=== PATIENT | female | born 1940 | race Caucasian/White ===

== ENCOUNTER → 2018-03-14 09:04 | Outpatient (CLI) | payer MEDICARE, OTHER, SELFPAY ==
[2018-03-14 09:39] LABS: Add Manual Diff / Slide Review NO; Basophils Percent Auto 1.5 % (0-2); Eosinophils Percent Auto 11.7 % (2-4); Hematocrit 37.8 % (36-46); Hemoglobin 12.4 g/dL (12.0-16.0); Lymphocytes Percent Auto 11.3 % (25-40); Mean Corpuscular HGB Conc 32.7 % (30-36); Mean Corpuscular Volume 85.7 fL (80-100); Monocytes Percent Auto 6.4 % (3-14); Neutrophils Absolute Auto 4600 /uL (3000-5900); Neutrophils Percent Auto 69.1 % (50-75); Platelet Count 263 X10^3/uL (150-400); Red Blood Cell Count 4.41 X10^6/uL (4.0-5.2); Red Cell Distribution Width 17.2 % (11.6-14.8); White Blood Cell Count 6.6 X10^3/uL (4.5-11.0)
[2018-03-14 10:00] LABS: Alanine Aminotransferase 18 IU/L (9-52); Albumin 4.4 g/dL (3.5-5.0); Albumin Globulin Ratio 1.5 (1.0-2.8); Alkaline Phosphatase 75 U/L (38-126); Aspartate Aminotransferase 22 IU/L (14-36); Bilirubin Total 0.3 mg/dL (0.2-1.3); Blood Urea Nitrogen 28 mg/dL (7-17); Carbon Dioxide 19 mmol/L (22-32); Chloride 111 mmol/L (98-107); Cholesterol 175 mg/dL (140-199); Estimated Glomerular Filt Rate 54.1 mL/min (>60); Glucose 102 mg/dL (80-110); HDL Cholesterol 43 mg/dL (40-60); HEMOLYSIS < 15 (0-50); LDL Cholesterol Calculated 102 mg/dL (<100); Potassium 5.1 mmol/L (3.4-5.1); Sodium 144 mmol/L (137-145); Total Protein 7.4 g/dL (6.3-8.2); Triglycerides 150 mg/dL (35-150)
[2018-03-14 10:39] LABS: Thyroid Stimulating Hormone 5.62 uIU/mL (0.47-4.68)
[2018-03-14 11:44] LABS: Appearance Urine UA CLEAR; Bilirubin Urine UA NEGATIVE (NEGATIVE); Color Urine UA YELLOW; Glucose Urine UA NEGATIVE (Normal); Ketones Urine UA NEGATIVE (NEGATIVE); Leukocyte Esterase Urine UA TRACE (NEGATIVE); Nitrite Urine UA POSITIVE (Negative); Occult Blood Urine UA 1+ (Negative); Protein Urine UA 2+ (Negative); Urobilinogen Urine UA 0.2 E.U./dL (0.2)
[2018-03-14 11:50] LABS: Bacteria Urine Many (>30); Culture Indicated Urine Specimen Cultured; RBC Urine 0-1/HPF (0-5/HPF); Squamous Epithelial Cell Urine 0-1 /HPF; WBC Urine 10-30/HPF (0-5/HPF)
== END ==
PROVIDERS: PCP Family Medicine; Visit Provider Family Medicine
DX: E78.5 Hyperlipidemia, unspecified (principal); N18.9 Chronic kidney disease, unspecified; I10 Essential (primary) hypertension; Z51.81 Encounter for therapeutic drug level monitoring
CPT/HCPCS: 36415; 80053; 80061; 81003; 81015; 84443; 85025; 85610; 87077; 87086; 87186

== ENCOUNTER → 2018-05-10 15:57 | Outpatient (CLI) | payer MEDICARE, OTHER, SELFPAY ==
[2018-05-10 17:23] LABS: Vitamin D 25 Hydroxy (D3) 55.9 ng/mL (30.0-100.0)
== END ==
PROVIDERS: PCP Family Medicine; Visit Provider Internal Medicine Rheumatology
DX: M81.0 Age-related osteoporosis without current pathological fracture (principal)
CPT/HCPCS: 36415; 82306

== ENCOUNTER 2018-07-04 16:00 | Outpatient (RCR) | payer MEDICARE, OTHER, SELFPAY ==
--- NOTE | 2018-04-10 12:00 | PT.OIE ---
Current Diagnoses Unspecified urinary incontinence (04/09/18) Past Medical History (Last Reviewed 04/01/18 @ 10:09 by Carola Devine DO) CKD (chronic kidney disease) (Chronic Unknown) CREST syndrome (Chronic Unknown) GERD (gastroesophageal reflux disease) (Chronic Unknown) Hyperlipemia (Chronic Unknown) Hypertension (Chronic Unknown) Osteopenia (Chronic ~04/2016) Osteoporosis (Chronic ~04/2016) Raynaud's disease (Chronic Unknown) Past Surgical History (Last Reviewed 04/01/18 @ 10:10 by Carola Devine DO) History of cataract removal with insertion of prosthetic lens Status post breast biopsy Status post hysterectomy Status post tonsillectomy and adenoidectomy Provider Visit Care Team Role Provider Type Carola Devine DO Attending Provider Physician Primary Care Provider Specialty: Family Practice Address: [address] [place] [address] Email: [email or web address] Physical Therapy Initial Evaluation PT-OP-A Visit Information Start: 04/10/18 11:21 Freq: Status: Active Protocol: Document 04/09/18 13:00 [facility] (Rec: 04/10/18 11:29 [facility] [email or web address]) Out-Patient Physical Therapy Visit Information Visit Information Visit Type Initial Evaluation Visit Start Time 13:00 Visit Stop Time 13:45 Total Visit Minutes 45 Visit Number 1 Evaluation Information Evaluation Date 04/09/18 PT-OP-B Current Condition Start: 04/10/18 11:21 Freq: Status: Active Protocol: Document 04/09/18 13:00 [facility] (Rec: 04/10/18 11:29 [facility] [id number]) Current Condition History of Current Condition Onset Date over 5 years ago Current Complaints fecal incontinence and pelvic organ prolapse History of Current Condition Yanni was seen 5 years ago for pelvic floor therapy for rectal prolapse and fecal incontinence. She notes she did well after treatment for a few years but then in 2014 she traveled to [facility] and because sick with an intestinal bug. She has not been the same since and is back to fecal incontinence and mucus in her stool. She reports with the rectal prolapse she has days when she feels more pressure than others. PT-OP-I Pelvic Floor Start: 04/10/18 11:21 Freq: Status: Active Protocol: Document 04/09/18 13:00 [facility] (Rec: 04/10/18 11:59 [facility] [email or web address]) Pelvic Floor Assessment Urine Pelvic Floor Surgery Yes Bowel Bowel Surgery Yes Bowel Symptoms Fecal Leakage Other Bowel Symptoms Yanni had a rectocele repair in 1988 stool leakage 3-4 times per day Bowel Movement Frequency 4-5 times per day Hand Stool Chart Comments small round stool the size of a grape Pelvic Clock Pelvic Clock 12-3 Atrophy Pelvic Clock 3-6 Atrophy Pelvic Clock 6-9 Atrophy Pelvic Clock 9-12 Atrophy Pelvic Clock Other able to facilitate contraction of all portions of the levator ani but weak endurance guarded on the pelvic clock from 4-6 and from 6-8 Prolapse Rectocele Grade 2 Contraction Ability Voluntary Contraction Weak Voluntary Relaxation Weak Manual Muscle Testing Left 2 Manual Muscle Testing Right 2 Manual Muscle Testing Anterior 3 Manual Muscle Testing Posterior 3 Muscle Endurance (Seconds) 3 PT-OP-M Strength Start: 04/10/18 11:21 Freq: Status: Active Protocol: Document 04/09/18 13:00 [facility] (Rec: 04/10/18 11:59 [facility] [id number]) Hip Strength Hip Manual Muscle Testing Right Abduction 3 Fair External Rotation 3 Fair Left Abduction 3 Fair Adduction 3 Fair PT-OP-Q Treatments Start: 04/10/18 11:21 Freq: Status: Active Protocol: Document 04/09/18 13:00 [facility] (Rec: 04/10/18 11:59 [facility] [email or web address]) Therapeutic Exercises Supine Exercises 3 Supine Exercise Name pelvic floor isolations Side bilateral Reps/Minutes hold 10 seconds relax 10-20 seconds 2 Supine Exercise Name modified squat stretch Side bilateral Reps/Minutes hold 1-2 minutes 1 Supine Exercise Name roll outs Side bilateral Resistance level 2 theraband Reps/Minutes 3 sets of 10 reps Self-Care/Home Management Treatment Education Patient Education Home Exercise Program Other Education Education on use of a squaty potty to assist with bowel movements as well as splinting at the perineum for bowel movements PT-OP-T Assessment and Plan Start: 04/10/18 11:21 Freq: Status: Active Protocol: Document 04/09/18 13:00 [facility] (Rec: 04/10/18 11:59 [facility] [email or web address]) Physical Therapy Assessment Rehab Potential Rehabilitation Potential Good Evaluation Complexity Number of Personal Factors/Comorbidities 0 Number of Body Systems Impaired 1-2 Clinical Presentation at Evaluation Stable Impairments Impairments Activity Tolerance Functional Activities Soft Tissue Mobility Strength Tone Other Impairments fecal incontinence Goals Three Impairment pelvic floor weakness Retirement Goal (LTG) Improve recruitment of the lateral cabrales of the levator ani to improve support to the descending colon and reduce complaints of pelvic pressure and heaviness LTG Duration 8 weeks Two Impairment Yanni feels like she is not fully able to empty her bowels Churn Tender Goal (LTG) With pelvic floor strengthening and education on splinting the perineum as well as using a squatty potty Yanni has improved her ability to fully empty her bowels LTG Duration 8 weeks One Impairment fecal incontinence with loss of stool 3-4 times per day Retirement Goal (LTG) Yanni has a overall reduction in stool incontinence from 3-4 times per day to 0-1 time per day LTG Duration 8 weeks Assessment Summary Assessment Yanni presents to physical therapy today with symptoms of rectal prolapse and fecal incontinence. She reports stool that is the round the size of a grape and experiences stool leakage 3-4 times per day. She notes she is often not aware of when she is leaking. She has had surgery for rectal propase in 1988 but notes complaints of pelvic heavyness again and feels as if she cannot fully evacuate her stool. This keeps her at home a great deal especially in the AM. With pelvic floor examination Yanni is able to facilitate her pelvic floor but is weak especially in the lateral cabrales of the levator ani. She also presents with hip ER weakness. She is guarded in the posterior wall from 6-8 and to a lesser extent from 4- 6. Treatment will focus on endurance of the pelvic floor for improved shelf of support, education on toileting techniques and avoiding straining, hip strengthening and stretching for her guarded posterior pelvic floor. Physical Therapy Plan Frequency and Duration Frequency of Treatment 1x/Week Duration of Treatment 8 weeks Plan of Care Start Date 04/09/18 Plan of Care End Date 06/04/18 Therapeutic Interventions Therapeutic Interventions Home Exercise Program Manual Therapy Neuromuscular Re-education Patient/Caregiver Education Self-Care/Home Management Soft Tissue Mobilization Therapeutic Exercises Modalities Biofeedback Electric Stimulation
--- NOTE | 2018-04-10 12:01 | PT.OPPOC ---
Current Diagnoses Unspecified urinary incontinence (04/09/18) Provider Visit Care Team Role Provider Type Carola Devine DO Attending Provider Physician Primary Care Provider Specialty: Family Practice Address: [address] [place] [address], [id number] Email: [email or web address] Plan Of Care PT-OP-T Assessment and Plan Start: 04/10/18 11:21 Freq: Status: Active Protocol: Document 04/09/18 13:00 [facility] (Rec: 04/10/18 11:59 [facility] [email or web address]) Physical Therapy Assessment Rehab Potential Rehabilitation Potential Good Evaluation Complexity Number of Personal Factors/Comorbidities 0 Number of Body Systems Impaired 1-2 Clinical Presentation at Evaluation Stable Impairments Impairments Activity Tolerance Functional Activities Soft Tissue Mobility Strength Tone Other Impairments fecal incontinence Goals Three Impairment pelvic floor weakness Jail Goal (LTG) Improve recruitment of the lateral cabrales of the levator ani to improve support to the descending colon and reduce complaints of pelvic pressure and heavyness LTG Duration 8 weeks Two Impairment Yanni feels like she is not fully able to empty her bowels Jail Goal (LTG) With pelvic floor strengthening and education on splinting the perineum as well as using a squatty potty Yanni has improved her ability to fully empty her bowels LTG Duration 8 weeks One Impairment fecal incontinence with loss of stool 3-4 times per day Engineering Inspector Goal (LTG) Yanni has a overall reduction in stool incontinence from 3-4 times per day to 0-1 time per day LTG Duration 8 weeks Assessment Summary Assessment Yanni presents to physical therapy today with symptms of rectal prolapse and fecal incontinence. She reports arianne that is the round the size of a grape and experiences stool leakage 3-4 times per day. She notes she is often not aware of when she is leaking. She has had surgery for rectal propase in 1988 but notes complaints of pelvic heavyness again and feels as if she cannot fully evacuate her stool. This keeps her at home a great deal especially in the AM. With pelvic floor examination Yanni is able to facilitate her pelvic floor but is weak especially in the lateral cabrales of the levator ani. She also presents with hip ER weakness. She is guarded in the posterior wall from 6-8 and to a lesser extent from 4- 6. Treatment will focus on endurance of the pelvic floor for improved shelf of support, education on toileting techniques and avoiding straining, hip strengthening and stretching for her guarded posterior pelvic floor. Physical Therapy Plan Frequency and Duration Frequency of Treatment 1x/Week Duration of Treatment 8 weeks Plan of Care Start Date 04/09/18 Plan of Care End Date 06/04/18 Therapeutic Interventions Therapeutic Interventions Home Exercise Program Manual Therapy Neuromuscular Re-education Patient/Caregiver Education Self-Care/Home Management Soft Tissue Mobilization Therapeutic Exercises Modalities Biofeedback Electric Stimulation Plan of Care Dates Plan of Care Start Date 04/09/18 Plan of Care End Date 06/04/18 Please Sign and Return: I have reviewed this Plan of Care and certify that the skilled therapy services above are required to meet the patient?s needs. Physician Signature Date Printed Name and Credentials Clinical Instructor Signature Printed Name and Credentials
--- NOTE | 2018-04-23 16:42 | PT.OTN ---
Current Diagnoses Unspecified urinary incontinence (04/23/18) Physical Therapy Treatment Note PT-OP-A Visit Information Start: 04/10/18 11:21 Freq: Status: Active Protocol: Document 04/23/18 16:32 [facility] (Rec: 04/23/18 16:42 [facility] [email or web address]) Out-Patient Physical Therapy Visit Information Visit Information Visit Type Treatment Note Visit Start Time 13:00 Visit Stop Time 13:45 Total Visit Minutes 45 Visit Number 2 Number of WEATHER ANCHOR Visits 0 Evaluation Information Evaluation Date 04/09/18 PT-OP-B Current Condition Start: 04/10/18 11:21 Freq: Status: Active Protocol: Document 04/09/18 13:00 [facility] (Rec: 04/10/18 11:29 [facility] [email or web address]) Current Condition History of Current Condition Onset Date over 5 years ago Current Complaints fecal incontinence and pelvic organ prolpase History of Current Condition Yanni was seen 5 years ago for pelvic floor therapy for rectal prolapse and fecal incontinence. She notes she did well after treatment for a few years but then in 2014 she traveled to [facility] and because sick with an intestinal bug. She has not been the same since and is back to fecal incontinence and mucus in her stool. She reports with the rectal prolapse she has days when she feels more pressure than others. PT-OP-C Subjective Start: 04/10/18 11:21 Freq: Status: Active Protocol: Document 04/23/18 16:32 [facility] (Rec: 04/23/18 16:42 [facility] [email or web address]) OP-PT Subjective Patient Comments Patient Comments Yanni reports her stool has been soft this past few weeks PT-OP-I Pelvic Floor Start: 04/10/18 11:21 Freq: Status: Active Protocol: Document 04/09/18 13:00 [facility] (Rec: 04/10/18 11:59 [facility] [email or web address]) Pelvic Floor Assessment Urine Pelvic Floor Surgery Yes Bowel Bowel Surgery Yes Bowel Symptoms Fecal Leakage Other Bowel Symptoms Yanni had a rectocele repair in 1988 stool leakage 3-4 times per day Bowel Movement Frequency 4-5 times per day [place] Stool Chart Comments small round stool the size of a grape Pelvic Clock Pelvic Clock 12-3 Atrophy Pelvic Clock 3-6 Atrophy Pelvic Clock 6-9 Atrophy Pelvic Clock 9-12 Atrophy Pelvic Clock Other able to faciltate contaction of all portions of the levator ani but weak endurance guarded on the pelvic clock from 4-6 and from 6-8 Prolapse Rectocele Grade 2 Contraction Ability Voluntary Contraction Weak Voluntary Relaxation Weak Manual Muscle Testing Left 2 Manual Muscle Testing Right 2 Manual Muscle Testing Anterior 3 Manual Muscle Testing Posterior 3 Muscle Endurance (Seconds) 3 PT-OP-M Strength Start: 04/10/18 11:21 Freq: Status: Active Protocol: Document 04/09/18 13:00 [facility] (Rec: 04/10/18 11:59 [facility] [email or web address]) Hip Strength Hip Manual Muscle Testing Right Abduction 3 Fair External Rotation 3 Fair Left Abduction 3 Fair Adduction 3 Fair PT-OP-Q Treatments Start: 04/10/18 11:21 Freq: Status: Active Protocol: Document 04/23/18 16:32 [facility] (Rec: 04/23/18 16:42 [facility] [email or web address]) Therapeutic Exercises Supine Exercises 4 Supine Exercise Name ball squeeze 3 Supine Exercise Name pelvic floor isolations Side bilateral Reps/Minutes hold 10 seconds relax 10-20 seconds 2 Supine Exercise Name modified squat stretch Side bilateral Reps/Minutes hold 1-2 minutes 1 Supine Exercise Name roll outs Side bilateral Resistance level 2 theraband Reps/Minutes 3 sets of 10 reps Other Exercises 3 Other Exercise Name templates for eccentric control and coordination 2 Other Exercise Name rock backs Reps/Minutes 10 reps 1 Other Exercise Name quadraped pelvic tilts Reps/Minutes 10 PT-OP-T Assessment and Plan Start: 04/10/18 11:21 Freq: Status: Active Protocol: Document 04/23/18 16:32 [facility] (Rec: 04/23/18 16:42 [facility] [email or web address]) Physical Therapy Assessment Assessment Summary Assessment working on releasing the posterior pelvic floor, Yanni tends to hold her pelvis in a posteriorly rotated position. We worked on breathing and opening up at the sitting bones and isolating the pelvic floor without substitution. EMG biofeedback was done today and average was 6.6 uv with max of 10.9 uv Physical Therapy Plan Frequency and Duration Frequency of Treatment 1x/Week Duration of Treatment 8 weeks Plan of Care Start Date 04/09/18 Plan of Care End Date 06/04/18 Therapeutic Interventions Therapeutic Interventions Home Exercise Program Manual Therapy Neuromuscular Re-education Patient/Caregiver Education Self-Care/Home Management Soft Tissue Mobilization Therapeutic Exercises Modalities Biofeedback Electric Stimulation Next Visit Focus/Plan Next Note Type Treatment Note Next Visit Plan work on isolation of the pelvic floor without gluteal substitution, begin TA stabilization next visit
--- NOTE | 2018-05-02 17:30 | PT.OTN ---
Current Diagnoses Unspecified urinary incontinence (05/02/18) Physical Therapy Treatment Note PT-OP-A Visit Information Start: 04/10/18 11:21 Freq: Status: Active Protocol: Document 05/02/18 17:27 [facility] (Rec: 05/02/18 17:30 [facility] [email or web address]) Out-Patient Physical Therapy Visit Information Visit Information Visit Type Treatment Note Visit Start Time 14:30 Visit Stop Time 15:15 Total Visit Minutes 45 Visit Number 3 Number of HOSPITAL EDUCATION COORDINATOR Visits 0 PT-OP-B Current Condition Start: 04/10/18 11:21 Freq: Status: Active Protocol: Document 04/09/18 13:00 [facility] (Rec: 04/10/18 11:29 [facility] [email or web address]) Current Condition History of Current Condition Onset Date over 5 years ago Current Complaints fecal incontinence and pelvic organ prolpase History of Current Condition Yanni was seen 5 years ago for pelvic floor therapy for rectal prolapse and fecal incontinence. She notes she did well after treatment for a few years but then in 2014 she traveled to [facility] and because sick with an intestinal bug. She has not been the same since and is back to fecal incontinence and mucus in her stool. She reports with the rectal prolapse she has days when she feels more pressure than others. PT-OP-C Subjective Start: 04/10/18 11:21 Freq: Status: Active Protocol: Document 05/02/18 17:27 [facility] (Rec: 05/02/18 17:30 [facility] [email or web address]) OP-PT Subjective Patient Comments Patient Comments Yanni reports she is able to tell a difference now with her pelvic floor. She is experiencing decreased heavyness and decreased fecal smearing PT-OP-I Pelvic Floor Start: 04/10/18 11:21 Freq: Status: Active Protocol: Document 04/09/18 13:00 [facility] (Rec: 04/10/18 11:59 [facility] [email or web address]) Pelvic Floor Assessment Urine Pelvic Floor Surgery Yes Bowel Bowel Surgery Yes Bowel Symptoms Fecal Leakage Other Bowel Symptoms Yanni had a rectocele repair in 1988 stool leakage 3-4 times per day Bowel Movement Frequency 4-5 times per day [place] Stool Chart Comments small round stool the size of a grape Pelvic Clock Pelvic Clock 12-3 Atrophy Pelvic Clock 3-6 Atrophy Pelvic Clock 6-9 Atrophy Pelvic Clock 9-12 Atrophy Pelvic Clock Other able to faciltate contaction of all portions of the levator ani but weak endurance guarded on the pelvic clock from 4-6 and from 6-8 Prolapse Rectocele Grade 2 Contraction Ability Voluntary Contraction Weak Voluntary Relaxation Weak Manual Muscle Testing Left 2 Manual Muscle Testing Right 2 Manual Muscle Testing Anterior 3 Manual Muscle Testing Posterior 3 Muscle Endurance (Seconds) 3 PT-OP-M Strength Start: 04/10/18 11:21 Freq: Status: Active Protocol: Document 04/09/18 13:00 [facility] (Rec: 04/10/18 11:59 [facility] [email or web address]) Hip Strength Hip Manual Muscle Testing Right Abduction 3 Fair External Rotation 3 Fair Left Abduction 3 Fair Adduction 3 Fair PT-OP-Q Treatments Start: 04/10/18 11:21 Freq: Status: Active Protocol: Document 05/02/18 17:27 [facility] (Rec: 05/02/18 17:30 [facility] [email or web address]) Therapeutic Exercises Supine Exercises 4 Supine Exercise Name ball squeeze 3 Supine Exercise Name pelvic floor isolations Side bilateral Reps/Minutes hold 10 seconds relax 10-20 seconds 2 Supine Exercise Name modified squat stretch Side bilateral Reps/Minutes hold 1-2 minutes 1 Supine Exercise Name roll outs Side bilateral Resistance level 2 theraband Reps/Minutes 3 sets of 10 reps Other Exercises 3 Other Exercise Name templates for eccentric control and coordination 2 Other Exercise Name rock backs Reps/Minutes 10 reps 1 Other Exercise Name quadraped pelvic tilts Reps/Minutes 10 PT-OP-T Assessment and Plan Start: 04/10/18 11:21 Freq: Status: Active Protocol: Document 05/02/18 17:27 [facility] (Rec: 05/02/18 17:30 [facility] [email or web address]) Physical Therapy Assessment Assessment Summary Assessment improved strength of EMG biofeedback today from 11.6 uv to 15.9 uv. Good improvement ! Yanni needed review of rock backs verses cat cow but is showing good awareness with all other exercises Physical Therapy Plan Frequency and Duration Frequency of Treatment 1x/Week Duration of Treatment 8 weeks Plan of Care Start Date 04/09/18 Plan of Care End Date 06/04/18 Therapeutic Interventions Therapeutic Interventions Home Exercise Program Manual Therapy Neuromuscular Re-education Patient/Caregiver Education Self-Care/Home Management Soft Tissue Mobilization Therapeutic Exercises Modalities Biofeedback Electric Stimulation Next Visit Focus/Plan Next Note Type Treatment Note Next Visit Plan work on isolation of the pelvic floor without gluteal substitution, begin TA stabilization next visit
--- NOTE | 2018-05-08 14:12 | PT.OTN ---
Current Diagnoses Unspecified urinary incontinence (05/08/18) Physical Therapy Treatment Note PT-OP-A Visit Information Start: 04/10/18 11:21 Freq: Status: Active Protocol: Document 05/08/18 14:07 [facility] (Rec: 05/08/18 14:11 [facility] [email or web address]) Out-Patient Physical Therapy Visit Information Visit Information Visit Type Treatment Note Visit Start Time 11:30 Visit Stop Time 12:15 Total Visit Minutes 45 Visit Number 4 Number of OUTSIDE MAINTENANCE WORKER Visits 0 Evaluation Information Evaluation Date 04/09/18 PT-OP-B Current Condition Start: 04/10/18 11:21 Freq: Status: Active Protocol: Document 04/09/18 13:00 [facility] (Rec: 04/10/18 11:29 [facility] [email or web address]) Current Condition History of Current Condition Onset Date over 5 years ago Current Complaints fecal incontinence and pelvic organ prolpase History of Current Condition Yanni was seen 5 years ago for pelvic floor therapy for rectal prolapse and fecal incontinence. She notes she did well after treatment for a few years but then in 2014 she traveled to [facility] and because sick with an intestinal bug. She has not been the same since and is back to fecal incontinence and mucus in her stool. She reports with the rectal prolapse she has days when she feels more pressure than others. PT-OP-C Subjective Start: 04/10/18 11:21 Freq: Status: Active Protocol: Document 05/08/18 14:07 [facility] (Rec: 05/08/18 14:11 [facility] [email or web address]) OP-PT Subjective Patient Comments Patient Comments Yanni notes this has been a hard week, she has gone back on esther seeds but it has made her stool softer and harder to control PT-OP-I Pelvic Floor Start: 04/10/18 11:21 Freq: Status: Active Protocol: Document 04/09/18 13:00 [facility] (Rec: 04/10/18 11:59 [facility] [email or web address]) Pelvic Floor Assessment Urine Pelvic Floor Surgery Yes Bowel Bowel Surgery Yes Bowel Symptoms Fecal Leakage Other Bowel Symptoms Yanni had a rectocele repair in 1988 stool leakage 3-4 times per day Bowel Movement Frequency 4-5 times per day [place] Stool Chart Comments small round stool the size of a grape Pelvic Clock Pelvic Clock 12-3 Atrophy Pelvic Clock 3-6 Atrophy Pelvic Clock 6-9 Atrophy Pelvic Clock 9-12 Atrophy Pelvic Clock Other able to faciltate contaction of all portions of the levator ani but weak endurance guarded on the pelvic clock from 4-6 and from 6-8 Prolapse Rectocele Grade 2 Contraction Ability Voluntary Contraction Weak Voluntary Relaxation Weak Manual Muscle Testing Left 2 Manual Muscle Testing Right 2 Manual Muscle Testing Anterior 3 Manual Muscle Testing Posterior 3 Muscle Endurance (Seconds) 3 PT-OP-M Strength Start: 04/10/18 11:21 Freq: Status: Active Protocol: Document 04/09/18 13:00 [facility] (Rec: 04/10/18 11:59 [facility] [email or web address]) Hip Strength Hip Manual Muscle Testing Right Abduction 3 Fair External Rotation 3 Fair Left Abduction 3 Fair Adduction 3 Fair PT-OP-Q Treatments Start: 04/10/18 11:21 Freq: Status: Active Protocol: Document 05/08/18 14:07 [facility] (Rec: 05/08/18 14:11 [facility] [email or web address]) Therapeutic Exercises Supine Exercises 6 Supine Exercise Name TA facilitation in supine with marches and heel slides 5 Supine Exercise Name quick contractions Reps/Minutes 2 seconds on 2 seconds off 4 Supine Exercise Name ball squeeze 3 Supine Exercise Name pelvic floor isolations Side bilateral Reps/Minutes hold 10 seconds relax 10-20 seconds 2 Supine Exercise Name modified squat stretch Side bilateral Reps/Minutes hold 1-2 minutes 1 Supine Exercise Name roll outs Side bilateral Resistance level 2 theraband Reps/Minutes 3 sets of 10 reps Other Exercises 3 Other Exercise Name templates for eccentric control and coordination 2 Other Exercise Name rock backs and miguel pose Reps/Minutes 10 reps 1 Other Exercise Name quadraped pelvic tilts Reps/Minutes 10 PT-OP-T Assessment and Plan Start: 04/10/18 11:21 Freq: Status: Active Protocol: Document 05/08/18 14:07 [facility] (Rec: 05/08/18 14:11 [facility] [email or web address]) Physical Therapy Assessment Assessment Summary Assessment worked on TA facilitation today with marches and heel slides. Needed verbac cuels to keep TA engaged. Will continue to work on TA facilitation Physical Therapy Plan Frequency and Duration Frequency of Treatment 1x/Week Duration of Treatment 8 weeks Plan of Care Start Date 04/09/18 Plan of Care End Date 06/04/18 Therapeutic Interventions Therapeutic Interventions Home Exercise Program Manual Therapy Neuromuscular Re-education Patient/Caregiver Education Self-Care/Home Management Soft Tissue Mobilization Therapeutic Exercises Modalities Biofeedback Electric Stimulation Next Visit Focus/Plan Next Note Type Treatment Note Next Visit Plan work on isolation of the pelvic floor without gluteal substitution, begin TA stabilization next visit
--- NOTE | 2018-05-16 11:45 | PT.OTN ---
Current Diagnoses Unspecified urinary incontinence (05/16/18) Physical Therapy Treatment Note PT-OP-A Visit Information Start: 04/10/18 11:21 Freq: Status: Active Protocol: Document 05/16/18 11:38 [facility] (Rec: 05/16/18 11:45 [facility] [email or web address]) Out-Patient Physical Therapy Visit Information Visit Information Visit Type Treatment Note Visit Start Time 10:30 Visit Stop Time 11:15 Total Visit Minutes 45 Visit Number 5 Number of GROCERY ASSOCIATE Visits 0 Evaluation Information Evaluation Date 04/09/18 PT-OP-B Current Condition Start: 04/10/18 11:21 Freq: Status: Active Protocol: Document 04/09/18 13:00 [facility] (Rec: 04/10/18 11:29 [facility] [email or web address]) Current Condition History of Current Condition Onset Date over 5 years ago Current Complaints fecal incontinence and pelvic organ prolpase History of Current Condition Yanni was seen 5 years ago for pelvic floor therapy for rectal prolapse and fecal incontinence. She notes she did well after treatment for a few years but then in 2014 she traveled to [facility] and because sick with an intestinal bug. She has not been the same since and is back to fecal incontinence and mucus in her stool. She reports with the rectal prolapse she has days when she feels more pressure than others. PT-OP-C Subjective Start: 04/10/18 11:21 Freq: Status: Active Protocol: Document 05/16/18 11:38 [facility] (Rec: 05/16/18 11:45 [facility] [email or web address]) OP-PT Subjective Patient Comments Patient Comments Still experiencing some leakage. PT-OP-I Pelvic Floor Start: 04/10/18 11:21 Freq: Status: Active Protocol: Document 04/09/18 13:00 [facility] (Rec: 04/10/18 11:59 [facility] [email or web address]) Pelvic Floor Assessment Urine Pelvic Floor Surgery Yes Bowel Bowel Surgery Yes Bowel Symptoms Fecal Leakage Other Bowel Symptoms Yanni had a rectocele repair in 1988 stool leakage 3-4 times per day Bowel Movement Frequency 4-5 times per day [place] Stool Chart Comments small round stool the size of a grape Pelvic Clock Pelvic Clock 12-3 Atrophy Pelvic Clock 3-6 Atrophy Pelvic Clock 6-9 Atrophy Pelvic Clock 9-12 Atrophy Pelvic Clock Other able to faciltate contaction of all portions of the levator ani but weak endurance guarded on the pelvic clock from 4-6 and from 6-8 Prolapse Rectocele Grade 2 Contraction Ability Voluntary Contraction Weak Voluntary Relaxation Weak Manual Muscle Testing Left 2 Manual Muscle Testing Right 2 Manual Muscle Testing Anterior 3 Manual Muscle Testing Posterior 3 Muscle Endurance (Seconds) 3 PT-OP-M Strength Start: 04/10/18 11:21 Freq: Status: Active Protocol: Document 04/09/18 13:00 [facility] (Rec: 04/10/18 11:59 [facility] [email or web address]) Hip Strength Hip Manual Muscle Testing Right Abduction 3 Fair External Rotation 3 Fair Left Abduction 3 Fair Adduction 3 Fair PT-OP-Q Treatments Start: 04/10/18 11:21 Freq: Status: Active Protocol: Document 05/16/18 11:38 [facility] (Rec: 05/16/18 11:45 [facility] [email or web address]) Therapeutic Exercises Supine Exercises 5 Supine Exercise Name quick contractions Reps/Minutes 2 seconds on 2 seconds off 3 Supine Exercise Name pelvic floor isolations Side bilateral Reps/Minutes hold 10 seconds relax 10-20 seconds 1 Supine Exercise Name roll outs Side bilateral Resistance level 2 theraband Reps/Minutes 3 sets of 10 reps Other Exercises 3 Other Exercise Name templates for eccentric control and coordination Neuro Re-Education Treatment Other Activities 1 Details neuro re-education with electrode for pelvic floor faciliatation PT-OP-T Assessment and Plan Start: 04/10/18 11:21 Freq: Status: Active Protocol: Document 05/16/18 11:38 [facility] (Rec: 05/16/18 11:45 [facility] [email or web address]) Physical Therapy Assessment Assessment Summary Assessment Yanni's high resolution anorectal manometry came and it does show significant weakness of the anal sphincter as well as decreased sensation threshold. I started Yanni on NMES today for the pelvic floor and she was able to feel this vaginally. We talked about trying the rectal sensor next visit and having Yanni rent a NMES unit for home. She did go up on EMG biofeedback today Her average is 9.7 uv with max of 20 uv Physical Therapy Plan Frequency and Duration Frequency of Treatment 1x/Week Duration of Treatment 8 weeks Plan of Care Start Date 04/09/18 Plan of Care End Date 06/04/18 Therapeutic Interventions Therapeutic Interventions Home Exercise Program Manual Therapy Neuromuscular Re-education Patient/Caregiver Education Self-Care/Home Management Soft Tissue Mobilization Therapeutic Exercises Modalities Biofeedback Electric Stimulation Next Visit Focus/Plan Next Note Type Treatment Note Next Visit Plan work on isolation of the pelvic floor without gluteal substitution, begin TA stabilization next visit
--- NOTE | 2018-05-28 14:02 | PT.OTN ---
Current Diagnoses Unspecified urinary incontinence (05/28/18) Physical Therapy Treatment Note PT-OP-A Visit Information Start: 04/10/18 11:21 Freq: Status: Active Protocol: Document 05/28/18 13:13 [facility] (Rec: 05/28/18 13:16 [facility] [email or web address]) Out-Patient Physical Therapy Visit Information Visit Information Visit Type Progress Note Visit Start Time 13:00 Visit Stop Time 13:45 Total Visit Minutes 45 Visit Number 6 Number of WELFARE WORKER Visits 0 Evaluation Information Evaluation Date 04/09/18 PT-OP-B Current Condition Start: 04/10/18 11:21 Freq: Status: Active Protocol: Document 04/09/18 13:00 [facility] (Rec: 04/10/18 11:29 [facility] [email or web address]) Current Condition History of Current Condition Onset Date over 5 years ago Current Complaints fecal incontinence and pelvic organ prolpase History of Current Condition Yanni was seen 5 years ago for pelvic floor therapy for rectal prolapse and fecal incontinence. She notes she did well after treatment for a few years but then in 2014 she traveled to [facility] and because sick with an intestinal bug. She has not been the same since and is back to fecal incontinence and mucus in her stool. She reports with the rectal prolapse she has days when she feels more pressure than others. PT-OP-C Subjective Start: 04/10/18 11:21 Freq: Status: Active Protocol: Document 05/28/18 13:13 [facility] (Rec: 05/28/18 13:16 [facility] [email or web address]) OP-PT Subjective Patient Comments Patient Comments Yanni reports she was constipated on her trip so she didn't experience the leakage . She still felt the prolapse and has mucus. She did receive her NMES stimulation unit in the mail so she brings it in to her treatment today to be set up PT-OP-I Pelvic Floor Start: 04/10/18 11:21 Freq: Status: Active Protocol: Document 05/28/18 13:49 [facility] (Rec: 05/28/18 14:01 [facility] [email or web address]) Pelvic Floor Assessment Urine Pelvic Floor Surgery Yes Pelvic Clock Pelvic Clock Other improving endurance of the pelvic floor, able to hold for 10 seconds with vaginal sensor, 5 seconds with rectal sensor SEMG (uV) Baseline 0 10 Second Contraction 13.0 Contraction Ability Voluntary Contraction Moderate Voluntary Relaxation Moderate Comments Pelvic Floor Comments improved contraction intensity on EMG biofeedback and Yanni has doubled her strength from 6.0 uv to 13uv PT-OP-M Strength Start: 04/10/18 11:21 Freq: Status: Active Protocol: Document 04/09/18 13:00 [facility] (Rec: 04/10/18 11:59 [facility] [email or web address]) Hip Strength Hip Manual Muscle Testing Right Abduction 3 Fair External Rotation 3 Fair Left Abduction 3 Fair Adduction 3 Fair PT-OP-Q Treatments Start: 04/10/18 11:21 Freq: Status: Active Protocol: Document 05/16/18 11:38 [facility] (Rec: 05/16/18 11:45 [facility] [email or web address]) Therapeutic Exercises Supine Exercises 5 Supine Exercise Name quick contractions Reps/Minutes 2 seconds on 2 seconds off 3 Supine Exercise Name pelvic floor isolations Side bilateral Reps/Minutes hold 10 seconds relax 10-20 seconds 1 Supine Exercise Name roll outs Side bilateral Resistance level 2 theraband Reps/Minutes 3 sets of 10 reps Other Exercises 3 Other Exercise Name templates for eccentric control and coordination Neuro Re-Education Treatment Other Activities 1 Details neuro re-education with electrode for pelvic floor faciliatation PT-OP-T Assessment and Plan Start: 04/10/18 11:21 Freq: Status: Active Protocol: Document 05/28/18 13:49 [facility] (Rec: 05/28/18 14:01 [facility] [email or web address]) Physical Therapy Assessment Progress Towards Goals Progress Towards Goals Progressing Toward Goals Progress Comments Yanni is showing progress with strength of her pelvic floor. She is still expereincing fecal leakage especially with loose stool Assessment Summary Assessment Yanni has demonstrating improved strength of the pelvic floor. We did begin using a rectal sensor for her with NMES and she rented a until for home for a month. Yanni is showing improved endurance of the pelvic foor using a vaginal sensor and now we are working towards rectal sphincter improved tone. Yanni would benefit from continued PT Physical Therapy Plan Frequency and Duration Frequency of Treatment 1x/Week Duration of Treatment 8 weeks Plan of Care Start Date 05/28/18 Plan of Care End Date 07/30/18 Therapeutic Interventions Therapeutic Interventions Home Exercise Program Manual Therapy Neuromuscular Re-education Patient/Caregiver Education Self-Care/Home Management Soft Tissue Mobilization Therapeutic Exercises Modalities Biofeedback Electric Stimulation Next Visit Focus/Plan Next Note Type Treatment Note Next Visit Plan continue work with NMES and rectal sensor with EMG biofeedback for improving rectal sphincter control and tone.
--- NOTE | 2018-05-28 14:02 | PT.OPPOC ---
Current Diagnoses Unspecified urinary incontinence (05/28/18) Provider Visit Care Team Role Provider Type Carola Devine DO Attending Provider Physician Primary Care Provider Specialty: Family Practice Address: [address] [place] [address], [id number] Email: [email or web address] Plan Of Care PT-OP-T Assessment and Plan Start: 04/10/18 11:21 Freq: Status: Active Protocol: Document 05/28/18 13:49 [facility] (Rec: 05/28/18 14:01 [facility] [email or web address]) Physical Therapy Assessment Progress Towards Goals Progress Towards Goals Progressing Toward Goals Progress Comments Yanni is showing progress with strength of her pelvic floor. She is still expereincing fecal leakage especially with loose stool Assessment Summary Assessment Yanni has demonstrating improved strength of the pelvic floor. We did begin using a rectal sensor for her with NMES and she rented a until for home for a month. Yanni is showing improved endurance of the pelvic foor using a vaginal sensor and now we are working towards rectal sphincter improved tone. Yanni would benefit from continued PT Physical Therapy Plan Frequency and Duration Frequency of Treatment 1x/Week Duration of Treatment 8 weeks Plan of Care Start Date 05/28/18 Plan of Care End Date 07/30/18 Therapeutic Interventions Therapeutic Interventions Home Exercise Program Manual Therapy Neuromuscular Re-education Patient/Caregiver Education Self-Care/Home Management Soft Tissue Mobilization Therapeutic Exercises Modalities Biofeedback Electric Stimulation Next Visit Focus/Plan Next Note Type Treatment Note Next Visit Plan continue work with NMES and rectal sensor with EMG biofeedback for improving rectal sphincter control and tone. Plan of Care Dates Plan of Care Start Date 05/28/18 Plan of Care End Date 07/30/18 Please Sign and Return: I have reviewed this Plan of Care and certify that the skilled therapy services above are required to meet the patient?s needs. Physician Signature Date Printed Name and Credentials Clinical Instructor Signature Printed Name and Credentials
--- NOTE | 2018-06-04 18:08 | PT.OTN ---
Current Diagnoses Unspecified urinary incontinence (06/04/18) Physical Therapy Treatment Note PT-OP-A Visit Information Start: 04/10/18 11:21 Freq: Status: Active Protocol: Document 06/04/18 17:55 [facility] (Rec: 06/04/18 18:08 [facility] [email or web address]) Out-Patient Physical Therapy Visit Information Visit Information Visit Type Treatment Note Visit Start Time 13:00 Visit Stop Time 13:45 Total Visit Minutes 45 Visit Number 7 Number of APPLICATION TRAINER Visits 0 Evaluation Information Evaluation Date 04/09/18 PT-OP-B Current Condition Start: 04/10/18 11:21 Freq: Status: Active Protocol: Document 04/09/18 13:00 [facility] (Rec: 04/10/18 11:29 [facility] [email or web address]) Current Condition History of Current Condition Onset Date over 5 years ago Current Complaints fecal incontinence and pelvic organ prolpase History of Current Condition Yanni was seen 5 years ago for pelvic floor therapy for rectal prolapse and fecal incontinence. She notes she did well after treatment for a few years but then in 2014 she traveled to [facility] and because sick with an intestinal bug. She has not been the same since and is back to fecal incontinence and mucus in her stool. She reports with the rectal prolapse she has days when she feels more pressure than others. PT-OP-C Subjective Start: 04/10/18 11:21 Freq: Status: Active Protocol: Document 06/04/18 17:55 [facility] (Rec: 06/04/18 18:08 [facility] [email or web address]) OP-PT Subjective Patient Comments Patient Comments Yanni states she has been using the rectal sensor with the home NMES unit. She notes a little improvement of symptoms PT-OP-I Pelvic Floor Start: 04/10/18 11:21 Freq: Status: Active Protocol: Document 05/28/18 13:49 [facility] (Rec: 05/28/18 14:01 [facility] [email or web address]) Pelvic Floor Assessment Urine Pelvic Floor Surgery Yes Pelvic Clock Pelvic Clock Other improving endurance of the pelvic floor, able to hold for 10 seconds with vaginal sensor, 5 seconds with rectal sensor SEMG (uV) Baseline 0 10 Second Contraction 13.0 Contraction Ability Voluntary Contraction Moderate Voluntary Relaxation Moderate Comments Pelvic Floor Comments improved contraction intensity on EMG biofeedback and Yanni has doubled her strength from 6.0 uv to 13uv PT-OP-M Strength Start: 04/10/18 11:21 Freq: Status: Active Protocol: Document 04/09/18 13:00 [facility] (Rec: 04/10/18 11:59 [facility] [email or web address]) Hip Strength Hip Manual Muscle Testing Right Abduction 3 Fair External Rotation 3 Fair Left Abduction 3 Fair Adduction 3 Fair PT-OP-Q Treatments Start: 04/10/18 11:21 Freq: Status: Active Protocol: Document 05/16/18 11:38 [facility] (Rec: 05/16/18 11:45 [facility] [email or web address]) Therapeutic Exercises Supine Exercises 5 Supine Exercise Name quick contractions Reps/Minutes 2 seconds on 2 seconds off 3 Supine Exercise Name pelvic floor isolations Side bilateral Reps/Minutes hold 10 seconds relax 10-20 seconds 1 Supine Exercise Name roll outs Side bilateral Resistance level 2 theraband Reps/Minutes 3 sets of 10 reps Other Exercises 3 Other Exercise Name templates for eccentric control and coordination Neuro Re-Education Treatment Other Activities 1 Details neuro re-education with electrode for pelvic floor faciliatation PT-OP-T Assessment and Plan Start: 04/10/18 11:21 Freq: Status: Active Protocol: Document 06/04/18 17:55 [facility] (Rec: 06/04/18 18:08 [facility] [email or web address]) Physical Therapy Assessment Assessment Summary Assessment with rectal sensor focusing on the rectal sphincter the strength is decreased as compared with the vaginal sensor. Continue to focus on both pelvic floor strengthening for the levator ani and rectal sphincter Physical Therapy Plan Frequency and Duration Frequency of Treatment 1x/Week Duration of Treatment 8 weeks Plan of Care Start Date 05/28/18 Plan of Care End Date 07/30/18 Therapeutic Interventions Therapeutic Interventions Home Exercise Program Manual Therapy Neuromuscular Re-education Patient/Caregiver Education Self-Care/Home Management Soft Tissue Mobilization Therapeutic Exercises Modalities Biofeedback Electric Stimulation Next Visit Focus/Plan Next Note Type Treatment Note Next Visit Plan reassess rectal strength next visit
--- NOTE | 2018-07-09 17:26 | PT.OTN ---
Current Diagnoses Unspecified urinary incontinence (07/04/18) Physical Therapy Treatment Note PT-OP-A Visit Information Start: 04/10/18 11:21 Freq: Status: Active Protocol: Document 06/04/18 17:55 [facility] (Rec: 06/04/18 18:08 [facility] [email or web address]) Out-Patient Physical Therapy Visit Information Visit Information Visit Type Treatment Note Visit Start Time 13:00 Visit Stop Time 13:45 Total Visit Minutes 45 Visit Number 7 Number of DOORPERSON Visits 0 Evaluation Information Evaluation Date 04/09/18 PT-OP-B Current Condition Start: 04/10/18 11:21 Freq: Status: Active Protocol: Document 04/09/18 13:00 [facility] (Rec: 04/10/18 11:29 [facility] [email or web address]) Current Condition History of Current Condition Onset Date over 5 years ago Current Complaints fecal incontinence and pelvic organ prolpase History of Current Condition Yanni was seen 5 years ago for pelvic floor therapy for rectal prolapse and fecal incontinence. She notes she did well after treatment for a few years but then in 2014 she traveled to [facility] and because sick with an intestinal bug. She has not been the same since and is back to fecal incontinence and mucus in her stool. She reports with the rectal prolapse she has days when she feels more pressure than others. PT-OP-C Subjective Start: 04/10/18 11:21 Freq: Status: Active Protocol: Document 07/04/18 17:01 [facility] (Rec: 07/04/18 17:03 [facility] [email or web address]) OP-PT Subjective Patient Comments Patient Comments Yanni reports she has been using the home rental of the E -stim for a month now. She has been alternating with the rectal sensor and vaginal sensor. She reports her stool has been runny and very soft so it is difficult to avoid fecal soiling. It has also felt at times to be small pieces and she can feel the pieces move down her bowels but she is unable to make it to the bathroom in time. Patient Reported Progress Same PT-OP-I Pelvic Floor Start: 04/10/18 11:21 Freq: Status: Active Protocol: Document 05/28/18 13:49 [facility] (Rec: 05/28/18 14:01 [facility] [email or web address]) Pelvic Floor Assessment Urine Pelvic Floor Surgery Yes Pelvic Clock Pelvic Clock Other improving endurance of the pelvic floor, able to hold for 10 seconds with vaginal sensor, 5 seconds with rectal sensor SEMG (uV) Baseline 0 10 Second Contraction 13.0 Contraction Ability Voluntary Contraction Moderate Voluntary Relaxation Moderate Comments Pelvic Floor Comments improved contraction intensity on EMG biofeedback and Yanni has doubled her strength from 6.0 uv to 13uv PT-OP-M Strength Start: 04/10/18 11:21 Freq: Status: Active Protocol: Document 04/09/18 13:00 [facility] (Rec: 04/10/18 11:59 [facility] [email or web address]) Hip Strength Hip Manual Muscle Testing Right Abduction 3 Fair External Rotation 3 Fair Left Abduction 3 Fair Adduction 3 Fair PT-OP-Q Treatments Start: 04/10/18 11:21 Freq: Status: Active Protocol: Document 07/04/18 17:22 [facility] (Rec: 07/09/18 17:26 [facility] [email or web address]) Therapeutic Exercises Supine Exercises 5 Supine Exercise Name quick contractions Reps/Minutes 2 seconds on 2 seconds off 4 Supine Exercise Name ball squeeze 3 Supine Exercise Name pelvic floor isolations Side bilateral Reps/Minutes hold 10 seconds relax 10-20 seconds 2 Supine Exercise Name modified squat stretch Side bilateral Reps/Minutes hold 1-2 minutes 1 Supine Exercise Name roll outs Side bilateral Resistance level 2 theraband Reps/Minutes 3 sets of 10 reps Other Exercises 3 Other Exercise Name templates for eccentric control and coordination 2 Other Exercise Name rock backs and miguel pose Reps/Minutes 10 reps 1 Other Exercise Name quadraped pelvic tilts Reps/Minutes 10 PT-OP-T Assessment and Plan Start: 04/10/18 11:21 Freq: Status: Active Protocol: Document 07/04/18 17:22 [facility] (Rec: 07/09/18 17:26 [facility] [email or web address]) Physical Therapy Assessment Assessment Summary Assessment Despite strengthening and using the rental neurostimulation unit Yanni is still experiencing fecal leakage. Her stool seems to be very runny though which is extremely difficult to control . With her history of C-diff and parasites from [facility] she may benefit from further workup with a stool sample. If her stool were more consistantly formed she may find that she is not leaking as much. At this point Yanni is independent with her home program and will be discharged at this time. Physical Therapy Plan Discharge Physical Therapy Discharge Comments Yanni has completed the current program of PT and is independent with her home exercise program
--- NOTE | 2018-10-09 10:42 | PT.OTN ---
Current Diagnoses Unspecified urinary incontinence (07/04/18) Physical Therapy Treatment Note PT-OP-A Visit Information Start: 04/10/18 11:21 Freq: Status: Active Protocol: Document 06/04/18 17:55 [facility] (Rec: 06/04/18 18:08 [facility] [email or web address]) Out-Patient Physical Therapy Visit Information Visit Information Visit Type Treatment Note Visit Start Time 13:00 Visit Stop Time 13:45 Total Visit Minutes 45 Visit Number 7 Number of STRATEGIC MANAGER Visits 0 Evaluation Information Evaluation Date 04/09/18 PT-OP-B Current Condition Start: 04/10/18 11:21 Freq: Status: Active Protocol: Document 04/09/18 13:00 [facility] (Rec: 04/10/18 11:29 [facility] [email or web address]) Current Condition History of Current Condition Onset Date over 5 years ago Current Complaints fecal incontinence and pelvic organ prolpase History of Current Condition Yanni was seen 5 years ago for pelvic floor therapy for rectal prolapse and fecal incontinence. She notes she did well after treatment for a few years but then in 2014 she traveled to [facility] and because sick with an intestinal bug. She has not been the same since and is back to fecal incontinence and mucus in her stool. She reports with the rectal prolapse she has days when she feels more pressure than others. PT-OP-C Subjective Start: 04/10/18 11:21 Freq: Status: Active Protocol: Document 07/04/18 17:01 [facility] (Rec: 07/04/18 17:03 [facility] [email or web address]) OP-PT Subjective Patient Comments Patient Comments Yanni reports she has been using the home rental of the E -stim for a month now. She has been alternating with the rectal sensor and vaginal sensor. She reports her stool has been runny and very soft so it is difficult to avoid fecal soiling. It has also felt at times to be small pieces and she can feel the pieces move down her bowels but she is unable to make it to the bathroom in time. Patient Reported Progress Same PT-OP-I Pelvic Floor Start: 04/10/18 11:21 Freq: Status: Active Protocol: Document 05/28/18 13:49 [facility] (Rec: 05/28/18 14:01 [facility] [email or web address]) Pelvic Floor Assessment Urine Pelvic Floor Surgery Yes Pelvic Clock Pelvic Clock Other improving endurance of the pelvic floor, able to hold for 10 seconds with vaginal sensor, 5 seconds with rectal sensor SEMG (uV) Baseline 0 10 Second Contraction 13.0 Contraction Ability Voluntary Contraction Moderate Voluntary Relaxation Moderate Comments Pelvic Floor Comments improved contraction intensity on EMG biofeedback and Yanni has doubled her strength from 6.0 uv to 13uv PT-OP-M Strength Start: 04/10/18 11:21 Freq: Status: Active Protocol: Document 04/09/18 13:00 [facility] (Rec: 04/10/18 11:59 [facility] [email or web address]) Hip Strength Hip Manual Muscle Testing Right Abduction 3 Fair External Rotation 3 Fair Left Abduction 3 Fair Adduction 3 Fair PT-OP-Q Treatments Start: 04/10/18 11:21 Freq: Status: Active Protocol: Document 07/04/18 17:22 [facility] (Rec: 07/09/18 17:26 [facility] [email or web address]) Therapeutic Exercises Supine Exercises 5 Supine Exercise Name quick contractions Reps/Minutes 2 seconds on 2 seconds off 4 Supine Exercise Name ball squeeze 3 Supine Exercise Name pelvic floor isolations Side bilateral Reps/Minutes hold 10 seconds relax 10-20 seconds 2 Supine Exercise Name modified squat stretch Side bilateral Reps/Minutes hold 1-2 minutes 1 Supine Exercise Name roll outs Side bilateral Resistance level 2 theraband Reps/Minutes 3 sets of 10 reps Other Exercises 3 Other Exercise Name templates for eccentric control and coordination 2 Other Exercise Name rock backs and miguel pose Reps/Minutes 10 reps 1 Other Exercise Name quadraped pelvic tilts Reps/Minutes 10 PT-OP-T Assessment and Plan Start: 04/10/18 11:21 Freq: Status: Active Protocol: Document 10/09/18 10:41 [facility] (Rec: 10/09/18 10:42 [facility] [email or web address]) Physical Therapy Assessment Progress Towards Goals Progress Towards Goals Slow Progress - Other Progress Comments good improvement of pelvic floor strength but still having symptoms of fecal leakage Assessment Summary Assessment Despite strengthening and using the rental neurostimulation unit Yanni is still experiencing fecal leakage. Her stool seems to be very runny though which is extremely difficult to control . With her history of C-diff and parasites from [place] she may benefit from further workup with a stool sample. If her stool were more consistantly formed she may find that she is not leaking as much. At this point Yanni is independent with her home program and will be discharged at this time. Physical Therapy Plan Discharge Physical Therapy Discharge Reasons Plateau in Progress Discharge Comments Yanni will follow up with her MD regarding her continued sx despite strengthening
== END 2018-10-09 12:21 ==
LOC: PHYS 16:00
PROVIDERS: PCP Family Medicine; Visit Provider Family Medicine
DX: R32 Unspecified urinary incontinence (principal)
CPT/HCPCS: 97110; 97112; 97161; 97535

== ENCOUNTER → 2018-09-13 11:38 | Outpatient (CLI) | payer MEDICARE, OTHER, SELFPAY ==
[2018-09-13 13:07] LABS: Erythrocyte Sedimentation Rate 26 MM/HR (0-20)
[2018-09-13 13:28] LABS: Iron 63 ug/dL (37-170)
[2018-09-13 13:36] LABS: Bilirubin Direct 0.2 mg/dL (0.0-0.4); Bilirubin Indirect 0.1 mg/dL (0.0-1.1); Bilirubin Total 0.3 mg/dL (0.2-1.3); C-Reactive Protein Quant 0.7 mg/dL (<1.0); Cholesterol 176 mg/dL (140-199); Gamma Glutamyl Transpeptidase 36 U/L (12-43); HDL Cholesterol 37 mg/dL (40-60); LDL Cholesterol Calculated 98 mg/dL (<100); Triglycerides 207 mg/dL (35-150); Uric Acid 9.5 mg/dL (2.5-6.2)
[2018-09-13 13:43] LABS: Free T3, Triiodothyronine Free 3.17 pg/mL (2.77-5.27); Free T4, Direct Thyroxine 1.01 ng/dL (0.78-2.19); T4 Total Thyroxine 7.71 ug/dL (5.5-11.0); Triiodothryronine T3 Uptake 28.3 % (23.5-40.5)
[2018-09-13 14:08] LABS: Fibrinogen 454 mg/dL (211-428)
[2018-09-15 18:44] LABS: Triiodothyronine T3 Total 94 ng/dL (76-181)
[2018-09-16 20:15] LABS: Homocysteine 14.1 umol/L (< 10.4)
[2018-09-17 14:04] LABS: Triiodothyronine T3 Reverse 24 ng/dL (8-25)
[2018-09-17 16:36] LABS: Thyroid Peroxidase Antibodies 6 IU/mL (< 9)
== END ==
PROVIDERS: PCP Family Medicine; Visit Provider Family Medicine
DX: Z00.00 Encounter for general adult medical examination without abnormal findings (principal)
CPT/HCPCS: 36415; 80061; 82247; 82248; 82977; 83036; 83090; 83540; 84436; 84439; 84479; 84480; 84481; 84482; 84550; 85384; 85651; 86140; 86376; 86850

== ENCOUNTER → 2018-09-27 13:24 | Outpatient (CLI) | payer MEDICARE, OTHER, SELFPAY ==
[2018-09-27 14:24] LABS: Uric Acid 9.7 mg/dL (2.5-6.2)
[2018-09-27 16:57] LABS: Fibrinogen 413 mg/dL (211-428)
== END ==
PROVIDERS: PCP Family Medicine; Visit Provider Family Medicine
DX: E79.0 Hyperuricemia without signs of inflammatory arthritis and tophaceous disease (principal); Z00.00 Encounter for general adult medical examination without abnormal findings
CPT/HCPCS: 36415; 84550; 85384

== ENCOUNTER → 2019-05-16 11:27 | Outpatient (CLI) | payer MEDICARE, OTHER, SELFPAY ==
[2019-05-16 12:24] LABS: Alanine Aminotransferase 7 IU/L (9-52); Albumin 4.3 g/dL (3.5-5.0); Albumin Globulin Ratio 1.4 (1.0-2.8); Alkaline Phosphatase 98 U/L (38-126); Aspartate Aminotransferase 21 IU/L (14-36); BUN Creatinine Ratio 15.2 (6-22); Bilirubin Total 0.4 mg/dL (0.2-1.3); Blood Urea Nitrogen 32 mg/dL (7-17); Calcium 10.7 mg/dL (8.4-10.2); Carbon Dioxide 23 mmol/L (22-32); Chloride 106 mmol/L (98-107); Estimated Glomerular Filt Rate 22.9 mL/min (>60); Glucose 84 mg/dL (80-110); HEMOLYSIS < 15 (0-50); Sodium 140 mmol/L (137-145); Total Protein 7.3 g/dL (6.3-8.2)
[2019-05-16 12:25] LABS: Potassium 5.4 mmol/L (3.4-5.1)
[2019-05-16 12:41] LABS: Vitamin D 25 Hydroxy (D3) 71.9 ng/mL (30.0-100.0)
== END ==
PROVIDERS: PCP Family Medicine; Visit Provider Internal Medicine Rheumatology
DX: M81.0 Age-related osteoporosis without current pathological fracture (principal)
CPT/HCPCS: 36415; 80053; 82306

== ENCOUNTER 2019-06-10 13:54 | Emergency (ER) | payer MEDICARE, OTHER, SELFPAY ==
[2019-06-10 14:01] VITALS: BP 165/71; PULSE 77; RESP 18; TEMP 36.4; O2SAT 99
[2019-06-10] MEDS: OXYMETAZOLINE NASAL SPRAY 30 ML 2 SPRAYS NASAL (14:10)
--- NOTE | 2019-06-10 15:33 | ED.EPISTAXIS ---
HPI - Epistaxis General Chief complaint: Nasal Problem Stated complaint: NON STOP NOSE BLEED Time Seen by Provider: 06/10/19 14:24 Source: patient Mode of arrival: Ambulatory Limitations: no limitations History of Present Illness HPI Narrative: 78-year-old female on aspirin and Plavix here for evaluation of a nosebleed. Patient states that a couple days ago she had bleeding for what she thought was coming from the right side of her nose. This did seem to stop on its own. States that earlier today she started bleeding from the right side of her nose. She tried to control at home with which was unsuccessful. She came into the emergency department for evaluation. No trauma. Related Data Home Medications Medication Instructions Recorded Confirmed aspirin 325 mg PO QPM #0 01/16/11 06/10/19 denosumab 60 mg/mL subcutaneous 60 mg SUBCUT [id number] 04/01/18 06/10/19 syringe nifedipine 90 mg tablet,extended 90 mg PO QPM 04/01/18 06/10/19 release 24 hr calcitriol 0.25 mcg capsule 0.25 mcg PO QWEEK 10/28/18 06/10/19 candesartan 4 mg tablet 4 mg PO DAILY 10/28/18 06/10/19 ferrous sulfate 325 mg (65 mg 325 mg PO DAILY tab 10/28/18 06/10/19 iron) tablet lansoprazole 15 mg capsule,delayed 15 mg PO BID #0 cap 10/28/18 06/10/19 release magnesium oxide 400 mg PO DAILY cap 10/28/18 06/10/19 acetaminophen 325 mg PO Q4H PRN 06/10/19 06/10/19 [id number]-didbljdrcudcm-njkdbkax 1 tab PO PRN PRN 06/10/19 06/10/19 cholecalciferol (vitamin D3) 2,000 unit PO DAILY 06/10/19 06/10/19 [Vitamin D3] clopidogrel [Plavix] 75 mg PO DAILY 06/10/19 06/10/19 diphenhydramine HCl 25 mg PO PRN PRN 06/10/19 06/10/19 sildenafil (antihypertensive) 20 mg PO TID 06/10/19 06/10/19 simvastatin [Zocor] 20 mg PO QPM 06/10/19 06/10/19 Previous Rx's Medication Instructions Recorded pentoxifylline 400 mg 400 mg PO TID #90 tab 12/17/18 tablet,extended release amoxicillin-pot clavulanate 1 tab PO Q12H 5 Days #10 tab 06/10/19 [Augmentin] Allergies Allergy/AdvReac Type Severity Reaction Status Date / Time carrot [CARROT] Allergy Severe EYES SWELL Verified 10/28/18 12:03 clindamycin [CLINDAMYCIN] AdvReac Severe DIARRHEA Verified 10/28/18 12:03 Review of Systems Constitutional Constitutional: Denies fever(s) and Denies headache(s) ENT Ears, Nose, Mouth, and Throat: Denies headache(s) and Reports epistaxis Cardiovascular Cardiovascular: Denies chest pain and Denies dyspnea Respiratory Respiratory: Denies dyspnea Integumentary/Breasts Skin/Breast: Denies lesions and Denies rash Neurologic Neurologic: Denies headache(s) Hematologic/Lymphatic Comments: On aspirin and Plavix Patient History Medical History CKD (chronic kidney disease) (Chronic Unknown) CREST syndrome (Chronic Unknown) GERD (gastroesophageal reflux disease) (Chronic Unknown) Hyperlipemia (Chronic Unknown) Hypertension (Chronic Unknown) Osteopenia (Chronic ~04/2016) Osteoporosis (Chronic ~04/2016) Raynaud's disease (Chronic Unknown) Social History Smoking Status: Never smoker alcohol intake: current (Occasional) alcohol intake frequency: 0-2 drinks per day Substance Use Type: does not use Exam Initial Vital Signs Initial Vital Signs: Vital Signs Temperature 97.5 F L 06/10/19 14:01 Pulse Rate 77 06/10/19 14:01 Respiratory Rate 18 06/10/19 14:01 Blood Pressure 165/71 H 06/10/19 14:01 Pulse Oximetry 99 06/10/19 14:01 Const General: cooperative, comfortable, well developed and well groomed HENNJ Head: normal to inspection and normocephalic Nose: septum normal and epistaxis (Right nostril) Eyes General: appearance normal, both eyes and all related structures Resp Effort & Inspection: normal respiratory effort Cardio Rate: regular rate Skin Lesions: no lesions Rashes: no rashes Neuro General: alert and awake Cognition: normal cognition Speech: speech normal Psych Appearance: grossly normal and well kempt Procedures Epistaxis Control Time Out Performed: Yes Nostril: right Nose Prepped With: oxymetazoline Direct Inspection: unable to visualize Clots Removed by: blowing nose Cautery Used: none Device Inserted: nasal tampon Device Size: 55 Patient Tolerated Procedure: well and no complications Course Orders Ordered: Discontinued Medications Oxymetazoline HCl (Afrin) 2 sprays NASAL NOW ONE Stop: 06/10/19 14:08 Last Admin: 06/10/19 14:10 Dose: 2 sprays Documented by: RANDI Tranexamic Acid (Cyklokapron) 1,000 mg MM NOW ONE Stop: 06/10/19 15:28 Last Admin: 06/10/19 15:36 Dose: 1,000 mg Documented by: RAY Vital Signs Vital signs: Vital Signs - 8 hr 06/10/19 14:01 Temperature 97.5 F L Pulse Rate 77 Respiratory Rate 18 Blood Pressure 165/71 H Pulse Oximetry 99 MDM - Epistaxis MDM Narrative Medical decision making narrative: Patient did have bleeding from what appeared to be the right side of her nose. Unfortunately this seemed to be very superior and posterior. There was no anterior lesions that I thought would be amenable to cauterization. We attempted multiple times to use pressure to include Afrin spray however this was unsuccessful. A rhino rocket soaked in [place] a was placed in the right nostril. Patient was observed for an extended period of time afterwards without any continued bleeding. Will send home on antibiotics. She was given phone number to follow up with ear nose and throat. She was also instructed to contact her primary provider. She has had no respiratory distress. Denied any need for nausea medication she was given return precautions and follow-up instructions. She expressed understanding and agreement with plan. Discharge Plan Departure Patient Disposition: Home Clinical Impression: Epistaxis Discharge Date/Time: 06/10/19 16:51 Instructions: DI for Nosebleed Activity Restrictions/Additional Instructions: I recommend tomorrow you contact your primary provider. I also recommend you contact the [facility] group at [phone] for follow-up. Take the antibiotics as directed. Return to the emergency department for any new or worsening symptoms Prescriptions: New amoxicillin-pot clavulanate [Augmentin] 875-125 mg tablet 1 tab PO Q12H 5 Days Qty: 10 RF: 0 No Action candesartan 4 mg tablet 4 mg PO DAILY RF: 0 calcitriol 0.25 mcg capsule 0.25 mcg PO QWEEK RF: 0 ferrous sulfate 325 mg (65 mg iron) tablet 325 mg PO DAILY RF: 0 magnesium oxide 400 mg capsule 400 mg PO DAILY RF: 0 nifedipine 90 mg tablet extended release 24hr 90 mg PO QPM RF: 0 denosumab [Prolia] 60 mg/mL syringe 60 mg SUBCUT [id number] RF: 0 aspirin 325 mg Tablet 325 mg PO QPM Qty: 0 RF: 0 lansoprazole [Prevacid 24Hr] 15 mg capsule,delayed release(DR/EC) 15 mg PO BID Qty: 0 RF: 0 pentoxifylline 400 mg tablet extended release 400 mg PO TID Qty: 90 RF: 5 sildenafil (antihypertensive) 20 mg tablet 20 mg PO TID RF: 0 clopidogrel [Plavix] 75 mg tablet 75 mg PO DAILY RF: 0 simvastatin [Zocor] 20 mg tablet 20 mg PO QPM RF: 0 acetaminophen 325 mg Tablet 325 mg PO Q4H PRN (Reason: PAIN OR FEVER) RF: 0 diphenhydramine HCl 25 mg Capsule 25 mg PO PRN PRN (Reason: Allergy Symptoms) RF: 0 [id number]-rafuyqvcdegzy-hplcdehk 250-250-65 mg Tablet 1 tab PO PRN PRN (Reason: Migraine Headache) RF: 0 cholecalciferol (vitamin D3) [Vitamin D3] 2,000 unit Capsule 2,000 unit PO DAILY RF: 0 Referrals: Carola Devine DO [Primary Care Provider] -
[2019-06-10] MEDS: TRANEXAMIC ACID 1,000 MG VIAL 1000 MG MM (15:36)
--- NOTE | 2019-06-10 15:37 | PC.NURSE ---
Dr Ramirez at bedside. TXA placed on RhinoRocket and placed in R Nare and nasal clamp applied. pt given water to swish and spit if necessary. NAD
== END 2019-06-10 16:51 | disposition home or self-care (01) ==
PROVIDERS: Emergency Provider Emergency Medicine; PCP Family Medicine
DX: R04.0 Epistaxis (principal)
CPT/HCPCS: 99282

== ENCOUNTER → 2019-09-08 09:38 | Outpatient (CLI) | payer MEDICARE, OTHER, SELFPAY | PROVIDERS: PCP Family Medicine; Visit Provider Family Medicine | DX: M34.1 CR(E)ST syndrome (principal); I73.00 Raynaud's syndrome without gangrene | CPT/HCPCS: 99212; 99213 ==

== ENCOUNTER → 2019-09-08 09:49 | Outpatient (CLI) | payer MEDICARE, OTHER, SELFPAY ==
[2019-09-08 11:15] LABS: Alanine Aminotransferase 10 IU/L (<35); Albumin 4.5 g/dL (3.5-5.0); Albumin Globulin Ratio 1.5 (1.0-2.8); Alkaline Phosphatase 87 U/L (38-126); Aspartate Aminotransferase 19 IU/L (14-36); BUN Creatinine Ratio 26.7 (6-22); Bilirubin Total 0.3 mg/dL (0.2-1.3); Blood Urea Nitrogen 32 mg/dL (7-17); Calcium 11.1 mg/dL (8.4-10.2); Carbon Dioxide 19 mmol/L (22-32); Chloride 111 mmol/L (98-107); Cholesterol 293 mg/dL (140-199); Estimated Glomerular Filt Rate 43.7 mL/min (>60); Globulin 3.1 g/dL (1.7-4.1); Glucose 91 mg/dL (80-110); HDL Cholesterol 44 mg/dL (40-60); HEMOLYSIS < 15 (0-50); LDL Cholesterol Calculated 205 mg/dL (<100); Sodium 141 mmol/L (137-145); Total Protein 7.6 g/dL (6.3-8.2); Triglycerides 221 mg/dL (35-150)
[2019-09-08 11:51] LABS: Potassium 6.6 mmol/L (3.4-5.1)
[2019-09-08 17:00] LABS: HEMOLYSIS < 15 (0-50); Potassium 5.3 mmol/L (3.4-5.1)
== END ==
PROVIDERS: PCP Family Medicine; Visit Provider Family Medicine
DX: I73.00 Raynaud's syndrome without gangrene (principal); R04.0 Epistaxis; Z87.19 Personal history of other diseases of the digestive system; E87.5 Hyperkalemia
CPT/HCPCS: 36415; 80053; 80061; 84132; 84443

== ENCOUNTER → 2019-09-12 14:43 | Outpatient (CLI) | payer MEDICARE, OTHER, SELFPAY ==
[2019-09-12 15:21] LABS: HEMOLYSIS < 15 (0-50)
== END ==
PROVIDERS: PCP Family Medicine; Visit Provider Physician Assistant
DX: E87.5 Hyperkalemia (principal)
CPT/HCPCS: 36415; 84132

== ENCOUNTER → 2020-02-02 09:42 | Outpatient (CLI) | payer MEDICARE, OTHER, SELFPAY ==
[2020-02-02 11:06] LABS: Cholesterol 268 mg/dL (140-199); HDL Cholesterol 40 mg/dL (40-60); LDL Cholesterol Calculated 189 mg/dL (<100); Triglycerides 194 mg/dL (35-150)
== END ==
PROVIDERS: PCP Family Medicine; Referring Provider Family Medicine; Visit Provider Family Medicine
DX: E78.5 Hyperlipidemia, unspecified (principal)
CPT/HCPCS: 36415; 80061

== ENCOUNTER → 2020-04-20 14:46 | Outpatient (CLI) | payer MEDICARE, OTHER, SELFPAY ==
[2020-04-20 14:55] LABS: Bacteria Urine None Seen; RBC Urine None Seen (0-5/HPF); WBC Urine None Seen (0-5/HPF)
[2020-04-20 15:28] LABS: Appearance Urine UA CLEAR; Bilirubin Urine UA NEGATIVE (NEGATIVE); Color Urine UA YELLOW; Glucose Urine UA NEGATIVE (Negative); Ketones Urine UA NEGATIVE (NEGATIVE); Leukocyte Esterase Urine UA NEGATIVE (NEGATIVE); Nitrite Urine UA NEGATIVE (Negative); Occult Blood Urine UA NEGATIVE (Negative); Protein Urine UA 1+ (Negative); Urobilinogen Urine UA 0.2 E.U./dL (0.2)
[2020-04-20 15:35] LABS: Creatinine Urine Random 71.6 mg/dL; Protein (Total) Urine Random 53 mg/dL (0-12); Protein Creatinine Ratio Urine 0.74 GRAM/24H
[2020-04-20 15:49] LABS: Culture Indicated Urine Cult Not Indicated; Squamous Epithelial Cell Urine 5-10 /HPF (0-5/HPF)
== END ==
PROVIDERS: PCP Family Medicine; Referring Provider Internal Medicine Nephrology; Visit Provider Internal Medicine Nephrology
DX: N18.3 Chronic kidney disease, stage 3 (moderate) (principal); R80.8 Other proteinuria
CPT/HCPCS: 81001; 82570; 84156

== ENCOUNTER → 2020-05-25 11:06 | Outpatient (CLI) | payer MEDICARE, OTHER, SELFPAY ==
[2020-05-25 13:18] LABS: Cholesterol 169 mg/dL (140-199); HDL Cholesterol 35 mg/dL (40-60); LDL Cholesterol Calculated 89 mg/dL (<100); Triglycerides 226 mg/dL (35-150)
== END ==
PROVIDERS: Family Provider Family Medicine; PCP Family Medicine; Referring Provider Family Medicine; Visit Provider Family Medicine
DX: E78.5 Hyperlipidemia, unspecified (principal)
CPT/HCPCS: 36415; 80061

== ENCOUNTER 2020-07-21 14:15 | Outpatient (RCR) | payer MEDICARE, OTHER, SELFPAY ==
--- NOTE | 2020-06-03 15:45 | PT.OIE ---
Current Diagnoses Stiffness of unspecified joint, not elsewhere classified (06/03/20) Nausea with vomiting, unspecified (06/03/20) Other abnormalities of gait and mobility (06/03/20) History of falling (06/03/20) Past Medical History (Last Updated 05/28/20 @ 13:56 by Todd Lanza DO) Back stiffness (Acute) Balance problem (Acute) Cervical somatic dysfunction (Acute) Chronic nausea (Acute) Chronic neck pain (Acute) CKD (chronic kidney disease) (Chronic Unknown) Constipation (Acute) Cranial somatic dysfunction (Acute) CREST syndrome (Chronic Unknown) GERD (gastroesophageal reflux disease) (Chronic Unknown) Hiatal hernia with gastroesophageal reflux disease and esophagitis (Acute) Hyperkalemia (Acute) Hyperlipemia (Chronic Unknown) Hypertension (Chronic Unknown) Nausea with vomiting (Acute) Osteopenia (Chronic ~04/2016) Osteoporosis (Chronic ~04/2016) Raynaud's disease (Chronic Unknown) Segmental and somatic dysfunction of abdomen and other regions (Acute) Segmental and somatic dysfunction of abdomen and other regions (Acute) Segmental and somatic dysfunction of pelvic region (Acute) Segmental and somatic dysfunction of rib cage (Acute) Segmental and somatic dysfunction of sacral region (Acute) Segmental and somatic dysfunction of thoracic region (Acute) Somatic dysfunction of right lower extremity (Acute) Past Surgical History (Last Reviewed 09/12/19 @ 16:50 by Todd Lanza DO) History of cataract removal with insertion of prosthetic lens History of rectal surgery (Acute) Status post breast biopsy Status post hysterectomy Status post tonsillectomy and adenoidectomy Visit Care Team Role Provider Type Todd Lanza DO Attending Provider Physician Family Provider Primary Care Provider Referring Provider Specialty: [facility] Address: [address] [place] [address], [facility] Email: Physical Therapy Initial Evaluation PT-OP-A Visit Information Start: 06/03/20 08:14 Freq: Status: Active Protocol: Document 06/03/20 09:00 AMB (Rec: 06/03/20 11:58 AMB [email or web address]) Out-Patient Physical Therapy Visit Information Visit Information Visit Type Initial Evaluation Visit Start Time 09:00 Visit Stop Time 09:46 Total Visit Minutes 46 Visit Number 1 PT-OP-B Current Condition Start: 06/03/20 08:14 Freq: Status: Active Protocol: Document 06/03/20 09:01 AMB (Rec: 06/03/20 09:17 AMB [id number]) Current Condition History of Current Condition Onset Date 1 month ago Current Complaints Poor balance, history of falling History of Current Condition Pt reports 1 fall in last 6 months, a month ago. Foot caught on the floor walking without assistive device while carrying a bag. Fell on face. Now using walking stick. 2- 3 near falls in last month. 4 stairs to enter with a railing, single level home, lives in a single level home. Lives with her sister. Pt with history of low back pain. Denies numbness/tingling. Old history of vertigo, but none currently, but does feel if she's hurrying or turning her head quickly then more likely to fall. Feels like L leg is weak. Vision is ok, previous history of cateract surgery, but good now. 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, osteoporosis, neck pain, back pain PT-OP-C Subjective Start: 06/03/20 08:14 Freq: Status: Active Protocol: Document 06/03/20 09:00 AMB (Rec: 06/03/20 11:58 AMB [email or web address]) Patient Questionnaires Lower Extremity Functional Scale LEFS Score 36 LEFS Impairment 40 to 59% Impaired (Score 32- 47) OP-PT Pain Assessment Location Lower Back Intensity 4 Scale Used Numeric (0 - 10) PT-OP-D Balance Start: 06/03/20 08:14 Freq: Status: Active Protocol: Document 06/03/20 09:00 AMB (Rec: 06/03/20 11:58 AMB [email or web address]) Carlin Balance Assessment Evaluation Sitting to Standing Ability Independent w/out Hands Unsupported Stance Safely- 2 minutes Sitting Unsupported, Feet on Floor Safely- 2 minutes Standing to Sitting Ability Safely, Minimal Hand Use Transfer Ability Safely, Minimal Hand Use Unsupported Stance- Eyes Closed Safely, 10 seconds Unsupported Stance- Eyes Open Independent, 1 minute Reaching Forward Standing Confidently, 10 inches Pick- Up Object From Floor Independent/Safe Look Behind Shoulder - Standing Turns Sideways Only Turning 360 Degrees Turns slowly, but safely Unsupported Stance, Alternating Feet on 4 Steps w/Supervision Stair Unsupported Tandem Stance Small Step- 30 seconds Unilateral Leg Stance Lifts Leg/Unable to Hold Total Score Carlin Total Score (out of 56 points) 45 Carlin Impairment Rating 1 to 19% Impaired (Score 45-55 ) PT-OP-G Mobility & Gait Start: 06/03/20 08:14 Freq: Status: Active Protocol: Document 06/03/20 09:00 AMB (Rec: 06/03/20 11:58 AMB [email or web address]) OP Gait Assessment Comments Gait Comments Pt ambulates with walking stick in community. Ambulates with bilateral hip external rotation, WBOS, increased trunk lean. PT-OP-M Strength Start: 06/03/20 08:14 Freq: Status: Active Protocol: Document 06/03/20 09:00 AMB (Rec: 06/03/20 11:58 AMB [email or web address]) Hip Strength Hip Manual Muscle Testing Right Flexion (L2) 4 Good Extension (S1) 4 Good Abduction 3- Fair- Left Flexion (L2) 4 Good Extension (S1) 3 Fair Abduction 2+ Poor+ Knee Strength Knee Manual Muscle Testing Right Flexion (S2) 4 Good Extension (L3) 4 Good Left Flexion (S2) 4 Good Extension (L3) 4- Good- Ankle/Foot Strength Ankle and Foot Manual Muscle Testing Right Dorsiflexion (L4) 4 Good Plantarflexion (S1) 4 Good Left Dorsiflexion (L4) 3+ Fair+ Plantarflexion (S1) 4 Good PT-OP-Q Treatments Start: 06/03/20 08:14 Freq: Status: Active Protocol: Document 06/03/20 09:00 AMB (Rec: 06/03/20 13:32 AMB [email or web address]) Therapeutic Exercises Standing Exercises 1 Standing Exercise Name hip abd Reps/Minutes x20 Comments holding onto the wall, vc to avoid ER Neuro Re-Education Treatment Balance Activities 1 Details stride stance with head turns eyes open Comments in corner PT-OP-T Assessment and Plan Start: 06/03/20 08:14 Freq: Status: Active Protocol: Document 06/03/20 09:00 AMB (Rec: 06/03/20 13:32 AMB [email or web address]) Physical Therapy Assessment Rehab Potential Rehabilitation Potential Good Evaluation Complexity Number of Personal Factors/Comorbidities 3 or More Number of Body Systems Impaired 4 or More Clinical Presentation at Evaluation Evolving Impairments Impairments Balance,Gait,Pain,Strength Other Concerns Fall Risk yes Goals Three Impairment balance Short Term Goal (STG) Yanni will improve her single leg stance time to at least 5 seconds without hip drop. STG Duration 4 weeks Factory Representative Goal (LTG) Yanni will show improved balance by improving her Carlin Balance Score to 50/56 from 45 /56. LTG Duration 8 weeks Two Impairment strength Short Term Goal (STG) Yanni will improve her hip strength to 4/5 bilaterally. STG Duration 4 weeks Factory Representative Goal (LTG) Yanni will improve her strength so that she can ascend and descend a set of stairs without hip drop. LTG Duration 8 weeks One Impairment gait Short Term Goal (STG) Yanni will ambulate for 2 minuntes while distracted ( holding a conversation) without loss of balance. STG Duration 4 weeks Prison Goal (LTG) Yanni will walk for 6 minutes without loss of balance and without assistive device, since she walks in her home without an assistive device. LTG Duration 8 weeks Assessment Summary Assessment Yanni attends physical therapy with a fall history. Her Carlin Balance score of 45/56 indicates that she should be using an assisitive device in the community, which she has just started. She does have significant hip and ankle weakness which is likely contributing to her fall risk and history. She will benefit from both lower extremity strengthening and balance training to reduce her fall risk. Physical Therapy Plan Frequency and Duration Frequency of Treatment 2x/Week Duration of Treatment 8 weeks Plan of Care Start Date 06/03/20 Plan of Care End Date 07/29/20 Therapeutic Interventions Therapeutic Interventions Balance Training,Gait Training ,Home Exercise Program, Neuromuscular Re-education, Therapeutic Activities, Therapeutic Exercises Next Visit Focus/Plan Next Note Type Treatment Note Next Visit Plan Progress HEP
--- NOTE | 2020-06-03 15:45 | PT.OPPOC ---
Physical, Occupational & Speech Therapy At [facility] Current Diagnoses Stiffness of unspecified joint, not elsewhere classified (06/03/20) Nausea with vomiting, unspecified (06/03/20) Other abnormalities of gait and mobility (06/03/20) History of falling (06/03/20) Visit Care Team Role Provider Type Todd Lanza DO Attending Provider Physician Family Provider Primary Care Provider Referring Provider Specialty: Family Practice Address: [address] [place] [address], [facility] Email: Plan Of Care PT-OP-T Assessment and Plan Start: 06/03/20 08:14 Freq: Status: Active Protocol: Document 06/03/20 09:00 AMB (Rec: 06/03/20 13:32 AMB [email or web address]) Physical Therapy Assessment Rehab Potential Rehabilitation Potential Good Evaluation Complexity Number of Personal Factors/Comorbidities 3 or More Number of Body Systems Impaired 4 or More Clinical Presentation at Evaluation Evolving Impairments Impairments Balance,Gait,Pain,Strength Other Concerns Fall Risk yes Goals Three Impairment balance Short Term Goal (STG) Yanni will improve her single leg stance time to at least 5 seconds without hip drop. STG Duration 4 weeks Usp Goal (LTG) Yanni will show improved balance by improving her Carlin Balance Score to 50/56 from 45 /56. LTG Duration 8 weeks Two Impairment strength Short Term Goal (STG) Yanni will improve her hip strength to 4/5 bilaterally. STG Duration 4 weeks Usp Goal (LTG) Yanni will improve her strength so that she can ascend and descend a set of stairs without hip drop. LTG Duration 8 weeks One Impairment gait Short Term Goal (STG) Yanni will ambulate for 2 minuntes while distracted ( holding a conversation) without loss of balance. STG Duration 4 weeks Customer Service And Sales Consultant Goal (LTG) Yanni will walk for 6 minutes without loss of balance and without assistive device, since she walks in her home without an assistive device. LTG Duration 8 weeks Assessment Summary Assessment Yanni attends physical therapy with a fall history. Her Carlin Balance score of 45/56 indicates that she should be using an assisitive device in the community, which she has just started. She does have significant hip and ankle weakness which is likely contributing to her fall risk and history. She will benefit from both lower extremity strengthening and balance training to reduce her fall risk. Physical Therapy Plan Frequency and Duration Frequency of Treatment 2x/Week Duration of Treatment 8 weeks Plan of Care Start Date 06/03/20 Plan of Care End Date 07/29/20 Therapeutic Interventions Therapeutic Interventions Balance Training,Gait Training ,Home Exercise Program, Neuromuscular Re-education, Therapeutic Activities, Therapeutic Exercises Next Visit Focus/Plan Next Note Type Treatment Note Next Visit Plan Progress HEP Plan of Care Dates Plan of Care Start Date 06/03/20 Plan of Care End Date 07/29/20 Electronically Signed by: Eileen Ospina, PT 06/03/20 2923 Please Sign and Return: I have reviewed this Plan of Care and certify that the skilled therapy services above are required to meet the patient?s needs. Physician Signature Date Printed Name and Credentials Clinical Instructor Signature Printed Name and Credentials
--- NOTE | 2020-06-08 08:16 | PT.OTN ---
Current Diagnoses Stiffness of unspecified joint, not elsewhere classified (06/08/20) Nausea with vomiting, unspecified (06/08/20) Other abnormalities of gait and mobility (06/08/20) History of falling (06/08/20) Physical Therapy Treatment Note PT-OP-A Visit Information Start: 06/03/20 08:14 Freq: Status: Active Protocol: Document 06/08/20 07:30 AMB (Rec: 06/08/20 08:16 AMB [id number]) Out-Patient Physical Therapy Visit Information Visit Information Visit Type Treatment Note Visit Start Time 07:30 Visit Stop Time 08:15 Total Visit Minutes 45 Visit Number 2 PT-OP-B Current Condition Start: 06/03/20 08:14 Freq: Status: Active Protocol: Document 06/03/20 09:01 AMB (Rec: 06/03/20 09:17 AMB [id number]) Current Condition History of Current Condition Onset Date 1 month ago Current Complaints Poor balance, history of falling History of Current Condition Pt reports 1 fall in last 6 months, a month ago. Foot caught on the floor walking without assistive device while carrying a bag. Fell on face. Now using walking stick. 2- 3 near falls in last month. 4 stairs to enter with a railing, single level home, lives in a single level home. Lives with her sister. Pt with history of low back pain. Denies numbness/tingling. Old history of vertigo, but none currently, but does feel if she's hurrying or turning her head quickly then more likely to fall. Feels like L leg is weak. Vision is ok, previous history of cateract surgery, but good now. 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, osteoporosis, neck pain, back pain PT-OP-C Subjective Start: 06/03/20 08:14 Freq: Status: Active Protocol: Document 06/08/20 07:30 AMB (Rec: 06/08/20 08:16 AMB [id number]) OP-PT Subjective Patient Comments Patient Comments Pt states she did have a little bit of difficulty with balance exercises. She definitely needs to touch down on the wall. PT-OP-D Balance Start: 06/03/20 08:14 Freq: Status: Active Protocol: Document 06/03/20 09:00 AMB (Rec: 06/03/20 11:58 AMB [email or web address]) Carlin Balance Assessment Evaluation Sitting to Standing Ability Independent w/out Hands Unsupported Stance Safely- 2 minutes Sitting Unsupported, Feet on Floor Safely- 2 minutes Standing to Sitting Ability Safely, Minimal Hand Use Transfer Ability Safely, Minimal Hand Use Unsupported Stance- Eyes Closed Safely, 10 seconds Unsupported Stance- Eyes Open Independent, 1 minute Reaching Forward Standing Confidently, 10 inches Pick- Up Object From Floor Independent/Safe Look Behind Shoulder - Standing Turns Sideways Only Turning 360 Degrees Turns slowly, but safely Unsupported Stance, Alternating Feet on 4 Steps w/Supervision Stair Unsupported Tandem Stance Small Step- 30 seconds Unilateral Leg Stance Lifts Leg/Unable to Hold Total Score Carlin Total Score (out of 56 points) 45 Carlin Impairment Rating 1 to 19% Impaired (Score 45-55 ) PT-OP-G Mobility & Gait Start: 06/03/20 08:14 Freq: Status: Active Protocol: Document 06/03/20 09:00 AMB (Rec: 06/03/20 11:58 AMB [email or web address]) OP Gait Assessment Comments Gait Comments Pt ambulates with walking stick in community. Ambulates with bilateral hip external rotation, WBOS, increased trunk lean. PT-OP-M Strength Start: 06/03/20 08:14 Freq: Status: Active Protocol: Document 06/03/20 09:00 AMB (Rec: 06/03/20 11:58 AMB [email or web address]) Hip Strength Hip Manual Muscle Testing Right Flexion (L2) 4 Good Extension (S1) 4 Good Abduction 3- Fair- Left Flexion (L2) 4 Good Extension (S1) 3 Fair Abduction 2+ Poor+ Knee Strength Knee Manual Muscle Testing Right Flexion (S2) 4 Good Extension (L3) 4 Good Left Flexion (S2) 4 Good Extension (L3) 4- Good- Ankle/Foot Strength Ankle and Foot Manual Muscle Testing Right Dorsiflexion (L4) 4 Good Plantarflexion (S1) 4 Good Left Dorsiflexion (L4) 3+ Fair+ Plantarflexion (S1) 4 Good PT-OP-Q Treatments Start: 06/03/20 08:14 Freq: Status: Active Protocol: Document 06/08/20 07:30 AMB (Rec: 06/08/20 08:16 AMB [id number]) Therapeutic Exercises Supine Exercises 2 Supine Exercise Name SLR Reps/Minutes 10 1 Supine Exercise Name bridges Comments increased thigh discomfort Standing Exercises 3 Standing Exercise Name squat- mini Reps/Minutes 10 2 Standing Exercise Name forward lunge, lateral lunge Reps/Minutes 15 ea Neuro Re-Education Treatment Balance Activities 2 Details stride stance with eyes closed Comments challenging 1 Details stride stance with head turns eyes open Comments hand hovering over plinth PT-OP-T Assessment and Plan Start: 06/03/20 08:14 Freq: Status: Active Protocol: Document 06/08/20 07:30 AMB (Rec: 06/08/20 08:16 AMB [id number]) Physical Therapy Assessment Goals Three Impairment balance Short Term Goal (STG) Yanni will improve her single leg stance time to at least 5 seconds without hip drop. STG Duration 4 weeks Correspondence Coordinator Goal (LTG) Yanni will show improved balance by improving her Carlin Balance Score to 50/56 from 45 /56. LTG Duration 8 weeks Two Impairment strength Short Term Goal (STG) Yanni will improve her hip strength to 4/5 bilaterally. STG Duration 4 weeks Senior Care Goal (LTG) Yanni will improve her strength so that she can ascend and descend a set of stairs without hip drop. LTG Duration 8 weeks One Impairment gait Short Term Goal (STG) Yanni will ambulate for 2 minuntes while distracted ( holding a conversation) without loss of balance. STG Duration 4 weeks Correspondence Coordinator Goal (LTG) Yanni will walk for 6 minutes without loss of balance and without assistive device, since she walks in her home without an assistive device. LTG Duration 8 weeks Assessment Summary Assessment Yanni needed extensive cues for form with lunges and squats, but tolerated well. Some knee discomfort when not being cued. Physical Therapy Plan Frequency and Duration Frequency of Treatment 2x/Week Duration of Treatment 8 weeks Plan of Care Start Date 06/03/20 Plan of Care End Date 07/29/20 Next Visit Focus/Plan Next Note Type Treatment Note Next Visit Plan Progress balance exercises
--- NOTE | 2020-06-10 10:00 | PT.OTN ---
Current Diagnoses Stiffness of unspecified joint, not elsewhere classified (06/10/20) Nausea with vomiting, unspecified (06/10/20) Other abnormalities of gait and mobility (06/10/20) History of falling (06/10/20) Physical Therapy Treatment Note PT-OP-A Visit Information Start: 06/03/20 08:14 Freq: Status: Active Protocol: Document 06/10/20 09:00 AMB (Rec: 06/10/20 09:26 AMB [id number]) Out-Patient Physical Therapy Visit Information Visit Information Visit Type Treatment Note Visit Start Time 09:00 Visit Stop Time 09:45 Total Visit Minutes 45 Visit Number 3 PT-OP-B Current Condition Start: 06/03/20 08:14 Freq: Status: Active Protocol: Document 06/03/20 09:01 AMB (Rec: 06/03/20 09:17 AMB [id number]) Current Condition History of Current Condition Onset Date 1 month ago Current Complaints Poor balance, history of falling History of Current Condition Pt reports 1 fall in last 6 months, a month ago. Foot caught on the floor walking without assistive device while carrying a bag. Fell on face. Now using walking stick. 2- 3 near falls in last month. 4 stairs to enter with a railing, single level home, lives in a single level home. Lives with her sister. Pt with history of low back pain. Denies numbness/tingling. Old history of vertigo, but none currently, but does feel if she's hurrying or turning her head quickly then more likely to fall. Feels like L leg is weak. Vision is ok, previous history of cateract surgery, but good now. 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, osteoporosis, neck pain, back pain PT-OP-C Subjective Start: 06/03/20 08:14 Freq: Status: Active Protocol: Document 06/10/20 09:00 AMB (Rec: 06/10/20 09:26 AMB [id number]) OP-PT Subjective Patient Comments Patient Comments Pt states she has done her strengthening exercises, a little sore, but nothing too horrible. PT-OP-D Balance Start: 06/03/20 08:14 Freq: Status: Active Protocol: Document 06/03/20 09:00 AMB (Rec: 06/03/20 11:58 AMB [email or web address]) Carlin Balance Assessment Evaluation Sitting to Standing Ability Independent w/out Hands Unsupported Stance Safely- 2 minutes Sitting Unsupported, Feet on Floor Safely- 2 minutes Standing to Sitting Ability Safely, Minimal Hand Use Transfer Ability Safely, Minimal Hand Use Unsupported Stance- Eyes Closed Safely, 10 seconds Unsupported Stance- Eyes Open Independent, 1 minute Reaching Forward Standing Confidently, 10 inches Pick- Up Object From Floor Independent/Safe Look Behind Shoulder - Standing Turns Sideways Only Turning 360 Degrees Turns slowly, but safely Unsupported Stance, Alternating Feet on 4 Steps w/Supervision Stair Unsupported Tandem Stance Small Step- 30 seconds Unilateral Leg Stance Lifts Leg/Unable to Hold Total Score Carlin Total Score (out of 56 points) 45 Carlin Impairment Rating 1 to 19% Impaired (Score 45-55 ) PT-OP-G Mobility & Gait Start: 06/03/20 08:14 Freq: Status: Active Protocol: Document 06/03/20 09:00 AMB (Rec: 06/03/20 11:58 AMB [email or web address]) OP Gait Assessment Comments Gait Comments Pt ambulates with walking stick in community. Ambulates with bilateral hip external rotation, WBOS, increased trunk lean. PT-OP-M Strength Start: 06/03/20 08:14 Freq: Status: Active Protocol: Document 06/03/20 09:00 AMB (Rec: 06/03/20 11:58 AMB [email or web address]) Hip Strength Hip Manual Muscle Testing Right Flexion (L2) 4 Good Extension (S1) 4 Good Abduction 3- Fair- Left Flexion (L2) 4 Good Extension (S1) 3 Fair Abduction 2+ Poor+ Knee Strength Knee Manual Muscle Testing Right Flexion (S2) 4 Good Extension (L3) 4 Good Left Flexion (S2) 4 Good Extension (L3) 4- Good- Ankle/Foot Strength Ankle and Foot Manual Muscle Testing Right Dorsiflexion (L4) 4 Good Plantarflexion (S1) 4 Good Left Dorsiflexion (L4) 3+ Fair+ Plantarflexion (S1) 4 Good PT-OP-Q Treatments Start: 06/03/20 08:14 Freq: Status: Active Protocol: Document 06/10/20 09:00 AMB (Rec: 06/10/20 09:26 AMB [id number]) Therapeutic Exercises Standing Exercises 3 Standing Exercise Name squat- mini Reps/Minutes 10 2 Standing Exercise Name forward lunge, lateral lunge Reps/Minutes 15 ea Neuro Re-Education Treatment Balance Activities 3 Details NBOS on foam Comments EC, and then EO HT 2 Details stride stance with eyes closed Comments challenging 1 Details stride stance with head turns eyes open Comments hand hovering over rail PT-OP-T Assessment and Plan Start: 06/03/20 08:14 Freq: Status: Active Protocol: Document 06/10/20 09:00 AMB (Rec: 06/10/20 09:26 AMB [id number]) Physical Therapy Assessment Assessment Summary Assessment Yanni did well with balance exercises, but does have excessive ankle sway. Reviewed HEP and continued to work on form. Physical Therapy Plan Next Visit Focus/Plan Next Note Type Treatment Note Next Visit Plan Progress balance exercises
--- NOTE | 2020-06-14 13:36 | PT.OTN ---
Current Diagnoses Stiffness of unspecified joint, not elsewhere classified (06/14/20) Nausea with vomiting, unspecified (06/14/20) Other abnormalities of gait and mobility (06/14/20) History of falling (06/14/20) Physical Therapy Treatment Note PT-OP-A Visit Information Start: 06/03/20 08:14 Freq: Status: Active Protocol: Document 06/14/20 12:46 AMB (Rec: 06/14/20 13:06 AMB [id number]) Out-Patient Physical Therapy Visit Information Visit Information Visit Type Treatment Note Visit Start Time 12:45 Visit Stop Time 13:30 Total Visit Minutes 45 Visit Number 4 PT-OP-B Current Condition Start: 06/03/20 08:14 Freq: Status: Active Protocol: Document 06/03/20 09:01 AMB (Rec: 06/03/20 09:17 AMB [id number]) Current Condition History of Current Condition Onset Date 1 month ago Current Complaints Poor balance, history of falling History of Current Condition Pt reports 1 fall in last 6 months, a month ago. Foot caught on the floor walking without assistive device while carrying a bag. Fell on face. Now using walking stick. 2- 3 near falls in last month. 4 stairs to enter with a railing, single level home, lives in a single level home. Lives with her sister. Pt with history of low back pain. Denies numbness/tingling. Old history of vertigo, but none currently, but does feel if she's hurrying or turning her head quickly then more likely to fall. Feels like L leg is weak. Vision is ok, previous history of cateract surgery, but good now. 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, osteoporosis, neck pain, back pain PT-OP-C Subjective Start: 06/03/20 08:14 Freq: Status: Active Protocol: Document 06/14/20 12:46 AMB (Rec: 06/14/20 13:06 AMB [id number]) OP-PT Subjective Patient Comments Patient Comments Pt does have some knee soreness for about an hour after her strengthening exercises PT-OP-D Balance Start: 06/03/20 08:14 Freq: Status: Active Protocol: Document 06/03/20 09:00 AMB (Rec: 06/03/20 11:58 AMB [email or web address]) Carlin Balance Assessment Evaluation Sitting to Standing Ability Independent w/out Hands Unsupported Stance Safely- 2 minutes Sitting Unsupported, Feet on Floor Safely- 2 minutes Standing to Sitting Ability Safely, Minimal Hand Use Transfer Ability Safely, Minimal Hand Use Unsupported Stance- Eyes Closed Safely, 10 seconds Unsupported Stance- Eyes Open Independent, 1 minute Reaching Forward Standing Confidently, 10 inches Pick- Up Object From Floor Independent/Safe Look Behind Shoulder - Standing Turns Sideways Only Turning 360 Degrees Turns slowly, but safely Unsupported Stance, Alternating Feet on 4 Steps w/Supervision Stair Unsupported Tandem Stance Small Step- 30 seconds Unilateral Leg Stance Lifts Leg/Unable to Hold Total Score Carlin Total Score (out of 56 points) 45 Carlin Impairment Rating 1 to 19% Impaired (Score 45-55 ) PT-OP-G Mobility & Gait Start: 06/03/20 08:14 Freq: Status: Active Protocol: Document 06/03/20 09:00 AMB (Rec: 06/03/20 11:58 AMB [email or web address]) OP Gait Assessment Comments Gait Comments Pt ambulates with walking stick in community. Ambulates with bilateral hip external rotation, WBOS, increased trunk lean. PT-OP-M Strength Start: 06/03/20 08:14 Freq: Status: Active Protocol: Document 06/03/20 09:00 AMB (Rec: 06/03/20 11:58 AMB [email or web address]) Hip Strength Hip Manual Muscle Testing Right Flexion (L2) 4 Good Extension (S1) 4 Good Abduction 3- Fair- Left Flexion (L2) 4 Good Extension (S1) 3 Fair Abduction 2+ Poor+ Knee Strength Knee Manual Muscle Testing Right Flexion (S2) 4 Good Extension (L3) 4 Good Left Flexion (S2) 4 Good Extension (L3) 4- Good- Ankle/Foot Strength Ankle and Foot Manual Muscle Testing Right Dorsiflexion (L4) 4 Good Plantarflexion (S1) 4 Good Left Dorsiflexion (L4) 3+ Fair+ Plantarflexion (S1) 4 Good PT-OP-Q Treatments Start: 06/03/20 08:14 Freq: Status: Active Protocol: Document 06/14/20 12:46 AMB (Rec: 06/14/20 13:06 AMB [id number]) Gym Equipment Shuttle Balance 1 Details BLUE Reps/Duration 10 minutes Comments head turns and modifed tandem stance Therapeutic Exercises Supine Exercises 1 Supine Exercise Name bridges Reps/Minutes 2x10 Comments #2 t band around thighs Sidelying Exercises 1 Sidelying Exercise Name clamshell Side bilateral Resistance #2 t band Reps/Minutes 2x10 Standing Exercises 3 Standing Exercise Name squat- mini Reps/Minutes 10 2 Standing Exercise Name forward lunge, lateral lunge Reps/Minutes 15 ea Neuro Re-Education Treatment Balance Activities 3 Details NBOS on foam Comments EC, and then EO HT 2 Details stride stance with eyes closed Comments challenging 1 Details stride stance with head turns eyes open Comments hand hovering over rail PT-OP-T Assessment and Plan Start: 06/03/20 08:14 Freq: Status: Active Protocol: Document 06/14/20 12:46 AMB (Rec: 06/14/20 13:06 AMB [id number]) Physical Therapy Assessment Assessment Summary Assessment Yanni continues to show poor strength in glut med with Trendelenburg gait. Good ankle response to balance challenges, but head turns continue to make her off balance. Physical Therapy Plan Next Visit Focus/Plan Next Note Type Treatment Note Next Visit Plan Assess HEP, progress balance exercises
--- NOTE | 2020-06-16 15:50 | PT.OTN ---
Current Diagnoses Stiffness of unspecified joint, not elsewhere classified (06/16/20) Nausea with vomiting, unspecified (06/16/20) Other abnormalities of gait and mobility (06/16/20) History of falling (06/16/20) Physical Therapy Treatment Note PT-OP-A Visit Information Start: 06/03/20 08:14 Freq: Status: Active Protocol: Document 06/16/20 12:47 AMB (Rec: 06/16/20 13:33 AMB [id number]) Out-Patient Physical Therapy Visit Information Visit Information Visit Type Treatment Note Visit Start Time 12:45 Visit Stop Time 13:30 Total Visit Minutes 45 Visit Number 5 PT-OP-B Current Condition Start: 06/03/20 08:14 Freq: Status: Active Protocol: Document 06/03/20 09:01 AMB (Rec: 06/03/20 09:17 AMB [id number]) Current Condition History of Current Condition Onset Date 1 month ago Current Complaints Poor balance, history of falling History of Current Condition Pt reports 1 fall in last 6 months, a month ago. Foot caught on the floor walking without assistive device while carrying a bag. Fell on face. Now using walking stick. 2- 3 near falls in last month. 4 stairs to enter with a railing, single level home, lives in a single level home. Lives with her sister. Pt with history of low back pain. Denies numbness/tingling. Old history of vertigo, but none currently, but does feel if she's hurrying or turning her head quickly then more likely to fall. Feels like L leg is weak. Vision is ok, previous history of cateract surgery, but good now. 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 PT-OP-D Balance Start: 06/03/20 08:14 Freq: Status: Active Protocol: Document 06/03/20 09:00 AMB (Rec: 06/03/20 11:58 AMB [email or web address]) Carlin Balance Assessment Evaluation Sitting to Standing Ability Independent w/out Hands Unsupported Stance Safely- 2 minutes Sitting Unsupported, Feet on Floor Safely- 2 minutes Standing to Sitting Ability Safely, Minimal Hand Use Transfer Ability Safely, Minimal Hand Use Unsupported Stance- Eyes Closed Safely, 10 seconds Unsupported Stance- Eyes Open Independent, 1 minute Reaching Forward Standing Confidently, 10 inches Pick- Up Object From Floor Independent/Safe Look Behind Shoulder - Standing Turns Sideways Only Turning 360 Degrees Turns slowly, but safely Unsupported Stance, Alternating Feet on 4 Steps w/Supervision Stair Unsupported Tandem Stance Small Step- 30 seconds Unilateral Leg Stance Lifts Leg/Unable to Hold Total Score Carlin Total Score (out of 56 points) 45 Carlin Impairment Rating 1 to 19% Impaired (Score 45-55 ) PT-OP-G Mobility & Gait Start: 06/03/20 08:14 Freq: Status: Active Protocol: Document 06/03/20 09:00 AMB (Rec: 06/03/20 11:58 AMB [email or web address]) OP Gait Assessment Comments Gait Comments Pt ambulates with walking stick in community. Ambulates with bilateral hip external rotation, WBOS, increased trunk lean. PT-OP-M Strength Start: 06/03/20 08:14 Freq: Status: Active Protocol: Document 06/03/20 09:00 AMB (Rec: 06/03/20 11:58 AMB [email or web address]) Hip Strength Hip Manual Muscle Testing Right Flexion (L2) 4 Good Extension (S1) 4 Good Abduction 3- Fair- Left Flexion (L2) 4 Good Extension (S1) 3 Fair Abduction 2+ Poor+ Knee Strength Knee Manual Muscle Testing Right Flexion (S2) 4 Good Extension (L3) 4 Good Left Flexion (S2) 4 Good Extension (L3) 4- Good- Ankle/Foot Strength Ankle and Foot Manual Muscle Testing Right Dorsiflexion (L4) 4 Good Plantarflexion (S1) 4 Good Left Dorsiflexion (L4) 3+ Fair+ Plantarflexion (S1) 4 Good PT-OP-Q Treatments Start: 06/03/20 08:14 Freq: Status: Active Protocol: Document 06/16/20 12:45 AMB (Rec: 06/16/20 15:50 AMB [email or web address]) Gym Equipment Shuttle Balance 1 Details BLUE/RED Reps/Duration 10 min Comments head turns and modifed tandem stance Therapeutic Exercises Standing Exercises 3 Standing Exercise Name squat- mini Reps/Minutes 10 2 Standing Exercise Name forward lunge, lateral lunge Reps/Minutes 15 ea Gait Training Gait Activity 2 Description foam pads, stepping over cones Comments walking stick and then not but needed CGA 1 Description smooth surfaces Comments walking stick 300 feet PT-OP-T Assessment and Plan Start: 06/03/20 08:14 Freq: Status: Active Protocol: Document 06/16/20 12:45 AMB (Rec: 06/16/20 15:50 AMB [email or web address]) Physical Therapy Assessment Assessment Summary Assessment Reviewed form with squats. Pt did get short of breath with walking and encouraged her in only short community walking. Physical Therapy Plan Next Visit Focus/Plan Next Note Type Treatment Note Next Visit Plan Continue to progress HEP, review form, follow up on community walking
--- NOTE | 2020-06-21 13:23 | PT.OTN ---
Current Diagnoses Stiffness of unspecified joint, not elsewhere classified (06/21/20) Nausea with vomiting, unspecified (06/21/20) Other abnormalities of gait and mobility (06/21/20) History of falling (06/21/20) Physical Therapy Treatment Note PT-OP-A Visit Information Start: 06/03/20 08:14 Freq: Status: Active Protocol: Document 06/21/20 12:45 AMB (Rec: 06/21/20 13:22 AMB [id number]) Out-Patient Physical Therapy Visit Information Visit Information Visit Type Treatment Note Visit Start Time 12:45 Visit Stop Time 13:30 Total Visit Minutes 45 Visit Number 6 PT-OP-B Current Condition Start: 06/03/20 08:14 Freq: Status: Active Protocol: Document 06/03/20 09:01 AMB (Rec: 06/03/20 09:17 AMB [id number]) Current Condition History of Current Condition Onset Date 1 month ago Current Complaints Poor balance, history of falling History of Current Condition Pt reports 1 fall in last 6 months, a month ago. Foot caught on the floor walking without assistive device while carrying a bag. Fell on face. Now using walking stick. 2- 3 near falls in last month. 4 stairs to enter with a railing, single level home, lives in a single level home. Lives with her sister. Pt with history of low back pain. Denies numbness/tingling. Old history of vertigo, but none currently, but does feel if she's hurrying or turning her head quickly then more likely to fall. Feels like L leg is weak. Vision is ok, previous history of cateract surgery, but good now. 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, osteoporosis, neck pain, back pain PT-OP-C Subjective Start: 06/03/20 08:14 Freq: Status: Active Protocol: Document 06/21/20 12:45 AMB (Rec: 06/21/20 13:22 AMB [id number]) OP-PT Subjective Patient Comments Patient Comments Pt went on an 8 minute walk, had to stop a couple times, but it went well. PT-OP-D Balance Start: 06/03/20 08:14 Freq: Status: Active Protocol: Document 06/03/20 09:00 AMB (Rec: 06/03/20 11:58 AMB [email or web address]) Carlin Balance Assessment Evaluation Sitting to Standing Ability Independent w/out Hands Unsupported Stance Safely- 2 minutes Sitting Unsupported, Feet on Floor Safely- 2 minutes Standing to Sitting Ability Safely, Minimal Hand Use Transfer Ability Safely, Minimal Hand Use Unsupported Stance- Eyes Closed Safely, 10 seconds Unsupported Stance- Eyes Open Independent, 1 minute Reaching Forward Standing Confidently, 10 inches Pick- Up Object From Floor Independent/Safe Look Behind Shoulder - Standing Turns Sideways Only Turning 360 Degrees Turns slowly, but safely Unsupported Stance, Alternating Feet on 4 Steps w/Supervision Stair Unsupported Tandem Stance Small Step- 30 seconds Unilateral Leg Stance Lifts Leg/Unable to Hold Total Score Carlin Total Score (out of 56 points) 45 Carlin Impairment Rating 1 to 19% Impaired (Score 45-55 ) PT-OP-G Mobility & Gait Start: 06/03/20 08:14 Freq: Status: Active Protocol: Document 06/03/20 09:00 AMB (Rec: 06/03/20 11:58 AMB [email or web address]) OP Gait Assessment Comments Gait Comments Pt ambulates with walking stick in community. Ambulates with bilateral hip external rotation, WBOS, increased trunk lean. PT-OP-M Strength Start: 06/03/20 08:14 Freq: Status: Active Protocol: Document 06/03/20 09:00 AMB (Rec: 06/03/20 11:58 AMB [email or web address]) Hip Strength Hip Manual Muscle Testing Right Flexion (L2) 4 Good Extension (S1) 4 Good Abduction 3- Fair- Left Flexion (L2) 4 Good Extension (S1) 3 Fair Abduction 2+ Poor+ Knee Strength Knee Manual Muscle Testing Right Flexion (S2) 4 Good Extension (L3) 4 Good Left Flexion (S2) 4 Good Extension (L3) 4- Good- Ankle/Foot Strength Ankle and Foot Manual Muscle Testing Right Dorsiflexion (L4) 4 Good Plantarflexion (S1) 4 Good Left Dorsiflexion (L4) 3+ Fair+ Plantarflexion (S1) 4 Good PT-OP-Q Treatments Start: 06/03/20 08:14 Freq: Status: Active Protocol: Document 06/21/20 12:45 AMB (Rec: 06/21/20 13:22 AMB [id number]) Gym Equipment Shuttle Recovery Unilateral Squats Resistance 25 Shuttle Recovery Platform Stable Shuttle Balance 1 Details BLUE/RED Reps/Duration 10 min Comments head turns and modifed tandem stance Therapeutic Exercises Sidelying Exercises 1 Sidelying Exercise Name clamshell Side bilateral Resistance #2 t band Reps/Minutes 2x10 Standing Exercises 3 Standing Exercise Name squat- mini Reps/Minutes 10 2 Standing Exercise Name forward lunge, lateral lunge Reps/Minutes 15 ea Gait Training Gait Activity 1 Description smooth surfaces Comments walking stick 300 feet Neuro Re-Education Treatment Balance Activities 3 Details NBOS on foam Comments EC, and then EO HT 1 Details stride stance with head turns eyes open Comments hand hovering over rail PT-OP-T Assessment and Plan Start: 06/03/20 08:14 Freq: Status: Active Protocol: Document 06/21/20 12:45 AMB (Rec: 06/21/20 13:22 AMB [id number]) Physical Therapy Assessment Assessment Summary Assessment Pt is showing better form with lunges and squats, but still tends to fall into genu valgus . Balance and gait better today, but knee pain on the left still limits. Physical Therapy Plan Next Visit Focus/Plan Next Note Type Treatment Note Next Visit Plan Continue to progress HEP, review form, follow up on community walking
--- NOTE | 2020-06-23 15:39 | PT.OTN ---
Current Diagnoses Stiffness of unspecified joint, not elsewhere classified (06/23/20) Nausea with vomiting, unspecified (06/23/20) Other abnormalities of gait and mobility (06/23/20) History of falling (06/23/20) Physical Therapy Treatment Note PT-OP-A Visit Information Start: 06/03/20 08:14 Freq: Status: Active Protocol: Document 06/23/20 12:46 AMB (Rec: 06/23/20 13:30 AMB [id number]) Out-Patient Physical Therapy Visit Information Visit Information Visit Type Treatment Note Visit Start Time 12:45 Visit Stop Time 13:30 Total Visit Minutes 45 Visit Number 7 PT-OP-B Current Condition Start: 06/03/20 08:14 Freq: Status: Active Protocol: Document 06/03/20 09:01 AMB (Rec: 06/03/20 09:17 AMB [id number]) Current Condition History of Current Condition Onset Date 1 month ago Current Complaints Poor balance, history of falling History of Current Condition Pt reports 1 fall in last 6 months, a month ago. Foot caught on the floor walking without assistive device while carrying a bag. Fell on face. Now using walking stick. 2- 3 near falls in last month. 4 stairs to enter with a railing, single level home, lives in a single level home. Lives with her sister. Pt with history of low back pain. Denies numbness/tingling. Old history of vertigo, but none currently, but does feel if she's hurrying or turning her head quickly then more likely to fall. Feels like L leg is weak. Vision is ok, previous history of cateract surgery, but good now. 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, osteoporosis, neck pain, back pain PT-OP-C Subjective Start: 06/03/20 08:14 Freq: Status: Active Protocol: Document 06/23/20 12:46 AMB (Rec: 06/23/20 13:30 AMB [id number]) OP-PT Subjective Patient Comments Patient Comments Pt had a difficult stomach day yesterday, but is overall feeling like she is slowly improving with PT. PT-OP-D Balance Start: 06/03/20 08:14 Freq: Status: Active Protocol: Document 06/03/20 09:00 AMB (Rec: 06/03/20 11:58 AMB [email or web address]) Carlin Balance Assessment Evaluation Sitting to Standing Ability Independent w/out Hands Unsupported Stance Safely- 2 minutes Sitting Unsupported, Feet on Floor Safely- 2 minutes Standing to Sitting Ability Safely, Minimal Hand Use Transfer Ability Safely, Minimal Hand Use Unsupported Stance- Eyes Closed Safely, 10 seconds Unsupported Stance- Eyes Open Independent, 1 minute Reaching Forward Standing Confidently, 10 inches Pick- Up Object From Floor Independent/Safe Look Behind Shoulder - Standing Turns Sideways Only Turning 360 Degrees Turns slowly, but safely Unsupported Stance, Alternating Feet on 4 Steps w/Supervision Stair Unsupported Tandem Stance Small Step- 30 seconds Unilateral Leg Stance Lifts Leg/Unable to Hold Total Score Carlin Total Score (out of 56 points) 45 Carlin Impairment Rating 1 to 19% Impaired (Score 45-55 ) PT-OP-G Mobility & Gait Start: 06/03/20 08:14 Freq: Status: Active Protocol: Document 06/03/20 09:00 AMB (Rec: 06/03/20 11:58 [facility] [email or web address]) OP Gait Assessment Comments Gait Comments Pt ambulates with walking stick in community. Ambulates with bilateral hip external rotation, WBOS, increased trunk lean. PT-OP-M Strength Start: 06/03/20 08:14 Freq: Status: Active Protocol: Document 06/03/20 09:00 AMB (Rec: 06/03/20 11:58 AMB [email or web address]) Hip Strength Hip Manual Muscle Testing Right Flexion (L2) 4 Good Extension (S1) 4 Good Abduction 3- Fair- Left Flexion (L2) 4 Good Extension (S1) 3 Fair Abduction 2+ Poor+ Knee Strength Knee Manual Muscle Testing Right Flexion (S2) 4 Good Extension (L3) 4 Good Left Flexion (S2) 4 Good Extension (L3) 4- Good- Ankle/Foot Strength Ankle and Foot Manual Muscle Testing Right Dorsiflexion (L4) 4 Good Plantarflexion (S1) 4 Good Left Dorsiflexion (L4) 3+ Fair+ Plantarflexion (S1) 4 Good PT-OP-Q Treatments Start: 06/03/20 08:14 Freq: Status: Active Protocol: Document 06/23/20 12:45 AMB (Rec: 06/23/20 15:39 AMB [email or web address]) Gym Equipment Shuttle Recovery Bilateral Squats Resistance 50 Shuttle Recovery Platform Unstable Unilateral Squats Resistance 25 Shuttle Recovery Platform Stable Shuttle Balance 1 Details RED Reps/Duration 10 min Comments head turns and modifed tandem stance Therapeutic Exercises Supine Exercises 6 Supine Exercise Name TA facilitation in supine with marches and heel slides 2 Supine Exercise Name SLR Reps/Minutes 10 1 Supine Exercise Name bridges Reps/Minutes 2x10 Comments #2 t band around thighs Sidelying Exercises 1 Sidelying Exercise Name clamshell Side bilateral Resistance #2 t band Reps/Minutes 2x10 Standing Exercises 3 Standing Exercise Name squat- mini Reps/Minutes 10 Neuro Re-Education Treatment Balance Activities 3 Details NBOS on foam Comments EC, and then EO HT 1 Details stride stance with head turns eyes open Comments hand hovering over rail PT-OP-T Assessment and Plan Start: 06/03/20 08:14 Freq: Status: Active Protocol: Document 06/23/20 12:46 AMB (Rec: 06/23/20 13:30 AMB [id number]) Physical Therapy Assessment Assessment Summary Assessment Yanni is showing improvement in balance with head turns, however hip abd and ER continues to be weak which affects her gait/knee pain. Physical Therapy Plan Next Visit Focus/Plan Next Note Type Treatment Note Next Visit Plan Review clamshell with t-band.
--- NOTE | 2020-07-02 13:00 | PT.OTN ---
Current Diagnoses Stiffness of unspecified joint, not elsewhere classified (07/02/20) Nausea with vomiting, unspecified (07/02/20) Other abnormalities of gait and mobility (07/02/20) History of falling (07/02/20) Physical Therapy Treatment Note PT-OP-A Visit Information Start: 06/03/20 08:14 Freq: Status: Active Protocol: Document 07/02/20 12:18 SP (Rec: 07/02/20 14:44 SP [id number]) Out-Patient Physical Therapy Visit Information Visit Information Visit Type Treatment Note Visit Start Time 12:18 Visit Stop Time 13:00 Total Visit Minutes 42 Visit Number 8 Number of PROMOTION MANAGER Visits 1 PT-OP-B Current Condition Start: 06/03/20 08:14 Freq: Status: Active Protocol: Document 06/03/20 09:01 AMB (Rec: 06/03/20 09:17 AMB [id number]) Current Condition History of Current Condition Onset Date 1 month ago Current Complaints Poor balance, history of falling History of Current Condition Pt reports 1 fall in last 6 months, a month ago. Foot caught on the floor walking without assistive device while carrying a bag. Fell on face. Now using walking stick. 2- 3 near falls in last month. 4 stairs to enter with a railing, single level home, lives in a single level home. Lives with her sister. Pt with history of low back pain. Denies numbness/tingling. Old history of vertigo, but none currently, but does feel if she's hurrying or turning her head quickly then more likely to fall. Feels like L leg is weak. Vision is ok, previous history of cateract surgery, but good now. 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 Hasn't been as compliant with exercises as should be to get stronger. PT-OP-D Balance Start: 06/03/20 08:14 Freq: Status: Active Protocol: Document 06/03/20 09:00 AMB (Rec: 06/03/20 11:58 AMB [email or web address]) Carlin Balance Assessment Evaluation Sitting to Standing Ability Independent w/out Hands Unsupported Stance Safely- 2 minutes Sitting Unsupported, Feet on Floor Safely- 2 minutes Standing to Sitting Ability Safely, Minimal Hand Use Transfer Ability Safely, Minimal Hand Use Unsupported Stance- Eyes Closed Safely, 10 seconds Unsupported Stance- Eyes Open Independent, 1 minute Reaching Forward Standing Confidently, 10 inches Pick- Up Object From Floor Independent/Safe Look Behind Shoulder - Standing Turns Sideways Only Turning 360 Degrees Turns slowly, but safely Unsupported Stance, Alternating Feet on 4 Steps w/Supervision Stair Unsupported Tandem Stance Small Step- 30 seconds Unilateral Leg Stance Lifts Leg/Unable to Hold Total Score Carlin Total Score (out of 56 points) 45 Carlin Impairment Rating 1 to 19% Impaired (Score 45-55 ) PT-OP-G Mobility & Gait Start: 06/03/20 08:14 Freq: Status: Active Protocol: Document 06/03/20 09:00 AMB (Rec: 06/03/20 11:58 AMB [email or web address]) OP Gait Assessment Comments Gait Comments Pt ambulates with walking stick in community. Ambulates with bilateral hip external rotation, WBOS, increased trunk lean. PT-OP-M Strength Start: 06/03/20 08:14 Freq: Status: Active Protocol: Document 06/03/20 09:00 AMB (Rec: 06/03/20 11:58 AMB [email or web address]) Hip Strength Hip Manual Muscle Testing Right Flexion (L2) 4 Good Extension (S1) 4 Good Abduction 3- Fair- Left Flexion (L2) 4 Good Extension (S1) 3 Fair Abduction 2+ Poor+ Knee Strength Knee Manual Muscle Testing Right Flexion (S2) 4 Good Extension (L3) 4 Good Left Flexion (S2) 4 Good Extension (L3) 4- Good- Ankle/Foot Strength Ankle and Foot Manual Muscle Testing Right Dorsiflexion (L4) 4 Good Plantarflexion (S1) 4 Good Left Dorsiflexion (L4) 3+ Fair+ Plantarflexion (S1) 4 Good PT-OP-Q Treatments Start: 06/03/20 08:14 Freq: Status: Active Protocol: Document 07/02/20 12:18 SP (Rec: 07/02/20 14:44 SP [id number]) Gym Equipment Shuttle Recovery Bilateral Squats Details cued knee alignment with toes see medial insoles Resistance 62 Shuttle Recovery Platform Stable Reps/Time 2x10 Unilateral Squats Details cued knee alignment with toes see medial insole Resistance 25 Shuttle Recovery Platform Stable Reps/Time 2x10 Therapeutic Exercises Supine Exercises 6 Supine Exercise Name TA facilitation in supine with marches and heel slides Side bilateral Reps/Minutes x8 Comments cued light foot contact, PPT, slow pacing control, space between knees 2 Supine Exercise Name SLR Side bilateral Reps/Minutes 10 Comments cued DF, with improved quad facilitataion 1 Supine Exercise Name bridges Resistance Tb Reps/Minutes 2x10 Comments #2 t band around thighs PT-OP-T Assessment and Plan Start: 06/03/20 08:14 Freq: Status: Active Protocol: Document 07/02/20 12:18 SP (Rec: 07/02/20 14:44 SP [id number]) Physical Therapy Assessment Goals Three Impairment balance Short Term Goal (STG) Yanni will improve her single leg stance time to at least 5 seconds without hip drop. STG Duration 4 weeks Blade Operator Goal (LTG) Yanni will show improved balance by improving her Carlin Balance Score to 50/56 from 45 /56. LTG Duration 8 weeks Two Impairment strength Short Term Goal (STG) Yanni will improve her hip strength to 4/5 bilaterally. STG Duration 4 weeks [facility] Goal (LTG) Yanni will improve her strength so that she can ascend and descend a set of stairs without hip drop. LTG Duration 8 weeks One Impairment gait Short Term Goal (STG) Yanni will ambulate for 2 minuntes while distracted ( holding a conversation) without loss of balance. STG Duration 4 weeks Blade Operator Goal (LTG) Yanni will walk for 6 minutes without loss of balance and without assistive device, since she walks in her home without an assistive device. LTG Duration 8 weeks Assessment Summary Assessment Pt tolerated increase in resistance to B squats on shuttle recovery and muscular controlled descent during sit< > stands post cuing for hip hinge nose over toes. Cued DF and hip ER little during SLR to allow for increased quad facilitation with improvement in demonstration eccentric control but does state takes more focus and tires quicker. Pt requested smaller #2 TB loop for bridges because other one to big and can't take apart knot made. Continued cuing for stacked pelvis during clamshell to allow for proper form and glut facilitation and decrease LS recruitment with report L hip discomfort but good strong effort, R hip doesn't seem as difficult. Did not get to standing ther ex today, more time spent on proper alignment and form of activities did today. Pt's hip abd and ER continues to be weak which affects her gait/knee pain. Physical Therapy Plan Frequency and Duration Frequency of Treatment 2x/Week Duration of Treatment 8 weeks Plan of Care Start Date 06/03/20 Plan of Care End Date 07/29/20 Therapeutic Interventions Therapeutic Interventions Balance Training,Gait Training ,Home Exercise Program, Neuromuscular Re-education, Therapeutic Activities, Therapeutic Exercises Next Visit Focus/Plan Next Note Type Treatment Note Next Visit Plan Assess reponse to last tx: supine, sidelying clam shell, continue to review resisted clamshell and sit to stands, progress into balance.
--- NOTE | 2020-07-06 15:25 | PT.OTN ---
Current Diagnoses Stiffness of unspecified joint, not elsewhere classified (07/06/20) Nausea with vomiting, unspecified (07/06/20) Other abnormalities of gait and mobility (07/06/20) History of falling (07/06/20) Physical Therapy Treatment Note PT-OP-A Visit Information Start: 06/03/20 08:14 Freq: Status: Active Protocol: Document 07/06/20 12:45 AMB (Rec: 07/07/20 08:14 AMB [email or web address]) Out-Patient Physical Therapy Visit Information Visit Information Visit Type Treatment Note Visit Start Time 12:45 Visit Stop Time 13:25 Total Visit Minutes 40 Visit Number 9 Number of OB TECH Visits 0 PT-OP-B Current Condition Start: 06/03/20 08:14 Freq: Status: Active Protocol: Document 06/03/20 09:01 AMB (Rec: 06/03/20 09:17 AMB [id number]) Current Condition History of Current Condition Onset Date 1 month ago Current Complaints Poor balance, history of falling History of Current Condition Pt reports 1 fall in last 6 months, a month ago. Foot caught on the floor walking without assistive device while carrying a bag. Fell on face. Now using walking stick. 2- 3 near falls in last month. 4 stairs to enter with a railing, single level home, lives in a single level home. Lives with her sister. Pt with history of low back pain. Denies numbness/tingling. Old history of vertigo, but none currently, but does feel if she's hurrying or turning her head quickly then more likely to fall. Feels like L leg is weak. Vision is ok, previous history of cateract surgery, but good now. 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, osteoporosis, neck pain, back pain PT-OP-C Subjective Start: 06/03/20 08:14 Freq: Status: Active Protocol: Document 07/06/20 12:45 AMB (Rec: 07/07/20 08:14 AMB [email or web address]) OP-PT Subjective Patient Comments Patient Comments Yanni has been doing some of her exercises, but back pain has been limiting her this week. PT-OP-D Balance Start: 06/03/20 08:14 Freq: Status: Active Protocol: Document 06/03/20 09:00 AMB (Rec: 06/03/20 11:58 AMB [email or web address]) Carlin Balance Assessment Evaluation Sitting to Standing Ability Independent w/out Hands Unsupported Stance Safely- 2 minutes Sitting Unsupported, Feet on Floor Safely- 2 minutes Standing to Sitting Ability Safely, Minimal Hand Use Transfer Ability Safely, Minimal Hand Use Unsupported Stance- Eyes Closed Safely, 10 seconds Unsupported Stance- Eyes Open Independent, 1 minute Reaching Forward Standing Confidently, 10 inches Pick- Up Object From Floor Independent/Safe Look Behind Shoulder - Standing Turns Sideways Only Turning 360 Degrees Turns slowly, but safely Unsupported Stance, Alternating Feet on 4 Steps w/Supervision Stair Unsupported Tandem Stance Small Step- 30 seconds Unilateral Leg Stance Lifts Leg/Unable to Hold Total Score Carlin Total Score (out of 56 points) 45 Carlin Impairment Rating 1 to 19% Impaired (Score 45-55 ) PT-OP-G Mobility & Gait Start: 06/03/20 08:14 Freq: Status: Active Protocol: Document 06/03/20 09:00 AMB (Rec: 06/03/20 11:58 AMB [email or web address]) OP Gait Assessment Comments Gait Comments Pt ambulates with walking stick in community. Ambulates with bilateral hip external rotation, WBOS, increased trunk lean. PT-OP-M Strength Start: 06/03/20 08:14 Freq: Status: Active Protocol: Document 06/03/20 09:00 AMB (Rec: 06/03/20 11:58 AMB [email or web address]) Hip Strength Hip Manual Muscle Testing Right Flexion (L2) 4 Good Extension (S1) 4 Good Abduction 3- Fair- Left Flexion (L2) 4 Good Extension (S1) 3 Fair Abduction 2+ Poor+ Knee Strength Knee Manual Muscle Testing Right Flexion (S2) 4 Good Extension (L3) 4 Good Left Flexion (S2) 4 Good Extension (L3) 4- Good- Ankle/Foot Strength Ankle and Foot Manual Muscle Testing Right Dorsiflexion (L4) 4 Good Plantarflexion (S1) 4 Good Left Dorsiflexion (L4) 3+ Fair+ Plantarflexion (S1) 4 Good PT-OP-Q Treatments Start: 06/03/20 08:14 Freq: Status: Active Protocol: Document 07/06/20 12:56 AMB (Rec: 07/06/20 13:37 AMB [id number]) Gym Equipment Shuttle Recovery Bilateral Squats Details cued knee alignment with toes see medial insoles Resistance 62 Shuttle Recovery Platform Stable Reps/Time 2x10 Unilateral Squats Details cued knee alignment with toes see medial insole Resistance 25 Shuttle Recovery Platform Stable Reps/Time 2x10 Shuttle Balance 1 Details RED Reps/Duration 10 min Comments head turns and modifed tandem stance Therapeutic Exercises Standing Exercises 3 Standing Exercise Name squat- mini Reps/Minutes 10 2 Standing Exercise Name lunges- mini Comments forward next to rail PT-OP-T Assessment and Plan Start: 06/03/20 08:14 Freq: Status: Active Protocol: Document 07/06/20 12:45 AMB (Rec: 07/07/20 08:14 AMB [email or web address]) Physical Therapy Assessment Assessment Summary Assessment Pt tolerated exercises well, was quite challenged by balance challenges. Physical Therapy Plan Next Visit Focus/Plan Next Note Type Progress Note
--- NOTE | 2020-07-08 16:05 | PT.OPPN ---
Current Diagnoses Stiffness of unspecified joint, not elsewhere classified (07/08/20) Nausea with vomiting, unspecified (07/08/20) Other abnormalities of gait and mobility (07/08/20) History of falling (07/08/20) Physical Therapy Progress Note PT-OP-A Visit Information Start: 06/03/20 08:14 Freq: Status: Active Protocol: Document 07/08/20 13:30 AMB (Rec: 07/09/20 16:05 AMB [email or web address]) Out-Patient Physical Therapy Visit Information Visit Information Visit Type Treatment Note Visit Start Time 13:30 Visit Stop Time 14:15 Total Visit Minutes 45 Visit Number 10 PT-OP-B Current Condition Start: 06/03/20 08:14 Freq: Status: Active Protocol: Document 06/03/20 09:01 AMB (Rec: 06/03/20 09:17 AMB [id number]) Current Condition History of Current Condition Onset Date 1 month ago Current Complaints Poor balance, history of falling History of Current Condition Pt reports 1 fall in last 6 months, a month ago. Foot caught on the floor walking without assistive device while carrying a bag. Fell on face. Now using walking stick. 2- 3 near falls in last month. 4 stairs to enter with a railing, single level home, lives in a single level home. Lives with her sister. Pt with history of low back pain. Denies numbness/tingling. Old history of vertigo, but none currently, but does feel if she's hurrying or turning her head quickly then more likely to fall. Feels like L leg is weak. Vision is ok, previous history of cateract surgery, but good now. 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, osteoporosis, neck pain, back pain PT-OP-C Subjective Start: 06/03/20 08:14 Freq: Status: Active Protocol: Document 07/08/20 13:30 AMB (Rec: 07/09/20 16:05 AMB [email or web address]) OP-PT Subjective Patient Comments Patient Comments Yanni's back pain isn't as bad today. She has been trying to do her exercises. PT-OP-D Balance Start: 06/03/20 08:14 Freq: Status: Active Protocol: Document 06/03/20 09:00 AMB (Rec: 06/03/20 11:58 AMB [email or web address]) Carlin Balance Assessment Evaluation Sitting to Standing Ability Independent w/out Hands Unsupported Stance Safely- 2 minutes Sitting Unsupported, Feet on Floor Safely- 2 minutes Standing to Sitting Ability Safely, Minimal Hand Use Transfer Ability Safely, Minimal Hand Use Unsupported Stance- Eyes Closed Safely, 10 seconds Unsupported Stance- Eyes Open Independent, 1 minute Reaching Forward Standing Confidently, 10 inches Pick- Up Object From Floor Independent/Safe Look Behind Shoulder - Standing Turns Sideways Only Turning 360 Degrees Turns slowly, but safely Unsupported Stance, Alternating Feet on 4 Steps w/Supervision Stair Unsupported Tandem Stance Small Step- 30 seconds Unilateral Leg Stance Lifts Leg/Unable to Hold Total Score Carlin Total Score (out of 56 points) 45 Carlin Impairment Rating 1 to 19% Impaired (Score 45-55 ) PT-OP-G Mobility & Gait Start: 06/03/20 08:14 Freq: Status: Active Protocol: Document 06/03/20 09:00 AMB (Rec: 06/03/20 11:58 AMB [email or web address]) OP Gait Assessment Comments Gait Comments Pt ambulates with walking stick in community. Ambulates with bilateral hip external rotation, WBOS, increased trunk lean. PT-OP-M Strength Start: 06/03/20 08:14 Freq: Status: Active Protocol: Document 06/03/20 09:00 AMB (Rec: 06/03/20 11:58 AMB [email or web address]) Hip Strength Hip Manual Muscle Testing Right Flexion (L2) 4 Good Extension (S1) 4 Good Abduction 3- Fair- Left Flexion (L2) 4 Good Extension (S1) 3 Fair Abduction 2+ Poor+ Knee Strength Knee Manual Muscle Testing Right Flexion (S2) 4 Good Extension (L3) 4 Good Left Flexion (S2) 4 Good Extension (L3) 4- Good- Ankle/Foot Strength Ankle and Foot Manual Muscle Testing Right Dorsiflexion (L4) 4 Good Plantarflexion (S1) 4 Good Left Dorsiflexion (L4) 3+ Fair+ Plantarflexion (S1) 4 Good PT-OP-T Assessment and Plan Start: 06/03/20 08:14 Freq: Status: Active Protocol: Document 07/08/20 13:30 AMB (Rec: 07/08/20 14:21 AMB [id number]) Physical Therapy Assessment Goals Three Impairment balance Short Term Goal (STG) Yanni will improve her single leg stance time to at least 5 seconds without hip drop. PROGRESS MADE- 3 seconds STG Duration 4 weeks Baton Teacher Goal (LTG) Yanni will show improved balance by improving her Carlin Balance Score to 50/56 from 45 /56. LTG Duration MET Two Impairment strength Short Term Goal (STG) Yanni will improve her hip strength to 4/5 bilaterally. HIP abduction remains weak, linnea on L STG Duration 4 weeks Senior Living Goal (LTG) Yanni will improve her strength so that she can ascend and descend a set of stairs without hip drop. LTG Duration 8 weeks One Impairment gait Short Term Goal (STG) Yanni will ambulate for 2 minuntes while distracted ( holding a conversation) without loss of balance. STG Duration MET [facility] Goal (LTG) Yanni will walk for 6 minutes without loss of balance and without assistive device, since she walks in her home without an assistive device. LTG Duration 8 weeks Assessment Summary Assessment Yanni has improved her Carlin Balance Scale score significantly, but continues to have weak hip stabilizers and that continues to impair her gait. Physical Therapy Plan Frequency and Duration Frequency of Treatment 2x/Week Duration of Treatment 8 weeks Plan of Care Start Date 06/03/20 Plan of Care End Date 07/29/20 Therapeutic Interventions Therapeutic Interventions Balance Training,Gait Training ,Home Exercise Program, Neuromuscular Re-education, Therapeutic Activities, Therapeutic Exercises Next Visit Focus/Plan Next Note Type Treatment Note Next Visit Plan Review sit to stand, supine clamshell, sidestepping
--- NOTE | 2020-07-09 16:05 | PT.OTN ---
Current Diagnoses Stiffness of unspecified joint, not elsewhere classified (07/08/20) Nausea with vomiting, unspecified (07/08/20) Other abnormalities of gait and mobility (07/08/20) History of falling (07/08/20) Physical Therapy Treatment Note PT-OP-A Visit Information Start: 06/03/20 08:14 Freq: Status: Active Protocol: Document 07/08/20 13:30 AMB (Rec: 07/09/20 16:05 AMB [email or web address]) Out-Patient Physical Therapy Visit Information Visit Information Visit Type Treatment Note Visit Start Time 13:30 Visit Stop Time 14:15 Total Visit Minutes 45 Visit Number 10 PT-OP-B Current Condition Start: 06/03/20 08:14 Freq: Status: Active Protocol: Document 06/03/20 09:01 AMB (Rec: 06/03/20 09:17 AMB [id number]) Current Condition History of Current Condition Onset Date 1 month ago Current Complaints Poor balance, history of falling History of Current Condition Pt reports 1 fall in last 6 months, a month ago. Foot caught on the floor walking without assistive device while carrying a bag. Fell on face. Now using walking stick. 2- 3 near falls in last month. 4 stairs to enter with a railing, single level home, lives in a single level home. Lives with her sister. Pt with history of low back pain. Denies numbness/tingling. Old history of vertigo, but none currently, but does feel if she's hurrying or turning her head quickly then more likely to fall. Feels like L leg is weak. Vision is ok, previous history of cateract surgery, but good now. 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, osteoporosis, neck pain, back pain PT-OP-C Subjective Start: 06/03/20 08:14 Freq: Status: Active Protocol: Document 07/08/20 13:30 AMB (Rec: 07/09/20 16:05 AMB [email or web address]) OP-PT Subjective Patient Comments Patient Comments Yanni's back pain isn't as bad today. She has been trying to do her exercises. PT-OP-D Balance Start: 06/03/20 08:14 Freq: Status: Active Protocol: Document 06/03/20 09:00 AMB (Rec: 06/03/20 11:58 AMB [email or web address]) Carlin Balance Assessment Evaluation Sitting to Standing Ability Independent w/out Hands Unsupported Stance Safely- 2 minutes Sitting Unsupported, Feet on Floor Safely- 2 minutes Standing to Sitting Ability Safely, Minimal Hand Use Transfer Ability Safely, Minimal Hand Use Unsupported Stance- Eyes Closed Safely, 10 seconds Unsupported Stance- Eyes Open Independent, 1 minute Reaching Forward Standing Confidently, 10 inches Pick- Up Object From Floor Independent/Safe Look Behind Shoulder - Standing Turns Sideways Only Turning 360 Degrees Turns slowly, but safely Unsupported Stance, Alternating Feet on 4 Steps w/Supervision Stair Unsupported Tandem Stance Small Step- 30 seconds Unilateral Leg Stance Lifts Leg/Unable to Hold Total Score Carlin Total Score (out of 56 points) 45 Carlin Impairment Rating 1 to 19% Impaired (Score 45-55 ) PT-OP-G Mobility & Gait Start: 06/03/20 08:14 Freq: Status: Active Protocol: Document 06/03/20 09:00 AMB (Rec: 06/03/20 11:58 AMB [email or web address]) OP Gait Assessment Comments Gait Comments Pt ambulates with walking stick in community. Ambulates with bilateral hip external rotation, WBOS, increased trunk lean. PT-OP-M Strength Start: 06/03/20 08:14 Freq: Status: Active Protocol: Document 06/03/20 09:00 AMB (Rec: 06/03/20 11:58 AMB [email or web address]) Hip Strength Hip Manual Muscle Testing Right Flexion (L2) 4 Good Extension (S1) 4 Good Abduction 3- Fair- Left Flexion (L2) 4 Good Extension (S1) 3 Fair Abduction 2+ Poor+ Knee Strength Knee Manual Muscle Testing Right Flexion (S2) 4 Good Extension (L3) 4 Good Left Flexion (S2) 4 Good Extension (L3) 4- Good- Ankle/Foot Strength Ankle and Foot Manual Muscle Testing Right Dorsiflexion (L4) 4 Good Plantarflexion (S1) 4 Good Left Dorsiflexion (L4) 3+ Fair+ Plantarflexion (S1) 4 Good PT-OP-Q Treatments Start: 06/03/20 08:14 Freq: Status: Active Protocol: Document 07/08/20 13:30 AMB (Rec: 07/09/20 16:05 AMB [email or web address]) Therapeutic Exercises Supine Exercises 2 Supine Exercise Name SLR Side bilateral Reps/Minutes 10 Comments cued DF, with improved quad facilitataion 1 Supine Exercise Name hip ER with #1 theraband Reps/Minutes 2x10 Comments challenging on L Sidelying Exercises 1 Sidelying Exercise Name clamshell Side bilateral Resistance #2 t band Reps/Minutes 2x10 Standing Exercises 3 Standing Exercise Name squat- mini Reps/Minutes 10 Neuro Re-Education Treatment Balance Activities 5 Details turning Comments 360 s walking stick 4 Details tap ups on stair 3 Details single leg stance Comments 3 seconds, difficult on L 2 Details stride stance with eyes closed Comments challenging 1 Details stride stance with head turns eyes open Comments hand hovering over rail PT-OP-T Assessment and Plan Start: 06/03/20 08:14 Freq: Status: Active Protocol: Document 07/08/20 13:30 AMB (Rec: 07/08/20 14:21 AMB [id number]) Physical Therapy Assessment Goals Three Impairment balance Short Term Goal (STG) Yanni will improve her single leg stance time to at least 5 seconds without hip drop. PROGRESS MADE- 3 seconds STG Duration 4 weeks Nitro Worker Goal (LTG) Yanni will show improved balance by improving her Carlin Balance Score to 50/56 from 45 /56. LTG Duration MET Two Impairment strength Short Term Goal (STG) Yanni will improve her hip strength to 4/5 bilaterally. HIP abduction remains weak, linnea on L STG Duration 4 weeks Nitro Worker Goal (LTG) Yanni will improve her strength so that she can ascend and descend a set of stairs without hip drop. LTG Duration 8 weeks One Impairment gait Short Term Goal (STG) Yanni will ambulate for 2 minuntes while distracted ( holding a conversation) without loss of balance. STG Duration MET Usp Goal (LTG) Yanni will walk for 6 minutes without loss of balance and without assistive device, since she walks in her home without an assistive device. LTG Duration 8 weeks Assessment Summary Assessment Yanni has improved her Carlin Balance Scale score significantly, but continues to have weak hip stabilizers and that continues to impair her gait. Physical Therapy Plan Frequency and Duration Frequency of Treatment 2x/Week Duration of Treatment 8 weeks Plan of Care Start Date 06/03/20 Plan of Care End Date 07/29/20 Therapeutic Interventions Therapeutic Interventions Balance Training,Gait Training ,Home Exercise Program, Neuromuscular Re-education, Therapeutic Activities, Therapeutic Exercises Next Visit Focus/Plan Next Note Type Treatment Note Next Visit Plan Review sit to stand, supine clamshell, sidestepping
--- NOTE | 2020-07-15 15:11 | PT.OTN ---
Current Diagnoses Stiffness of unspecified joint, not elsewhere classified (07/15/20) Nausea with vomiting, unspecified (07/15/20) Other abnormalities of gait and mobility (07/15/20) History of falling (07/15/20) Physical Therapy Treatment Note PT-OP-A Visit Information Start: 06/03/20 08:14 Freq: Status: Active Protocol: Document 07/15/20 10:25 AMB (Rec: 07/15/20 10:38 AMB [id number]) Out-Patient Physical Therapy Visit Information Visit Information Visit Type Treatment Note Visit Start Time 10:20 Visit Stop Time 11:00 Total Visit Minutes 45 Visit Number 11 PT-OP-B Current Condition Start: 06/03/20 08:14 Freq: Status: Active Protocol: Document 06/03/20 09:01 AMB (Rec: 06/03/20 09:17 AMB [id number]) Current Condition History of Current Condition Onset Date 1 month ago Current Complaints Poor balance, history of falling History of Current Condition Pt reports 1 fall in last 6 months, a month ago. Foot caught on the floor walking without assistive device while carrying a bag. Fell on face. Now using walking stick. 2- 3 near falls in last month. 4 stairs to enter with a railing, single level home, lives in a single level home. Lives with her sister. Pt with history of low back pain. Denies numbness/tingling. Old history of vertigo, but none currently, but does feel if she's hurrying or turning her head quickly then more likely to fall. Feels like L leg is weak. Vision is ok, previous history of cateract surgery, but good now. 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, osteoporosis, neck pain, back pain PT-OP-C Subjective Start: 06/03/20 08:14 Freq: Status: Active Protocol: Document 07/15/20 10:25 AMB (Rec: 07/15/20 10:38 AMB [id number]) OP-PT Subjective Patient Comments Patient Comments Yanni is feeling a bit wobbly today. PT-OP-D Balance Start: 06/03/20 08:14 Freq: Status: Active Protocol: Document 06/03/20 09:00 AMB (Rec: 06/03/20 11:58 AMB [email or web address]) Carlin Balance Assessment Evaluation Sitting to Standing Ability Independent w/out Hands Unsupported Stance Safely- 2 minutes Sitting Unsupported, Feet on Floor Safely- 2 minutes Standing to Sitting Ability Safely, Minimal Hand Use Transfer Ability Safely, Minimal Hand Use Unsupported Stance- Eyes Closed Safely, 10 seconds Unsupported Stance- Eyes Open Independent, 1 minute Reaching Forward Standing Confidently, 10 inches Pick- Up Object From Floor Independent/Safe Look Behind Shoulder - Standing Turns Sideways Only Turning 360 Degrees Turns slowly, but safely Unsupported Stance, Alternating Feet on 4 Steps w/Supervision Stair Unsupported Tandem Stance Small Step- 30 seconds Unilateral Leg Stance Lifts Leg/Unable to Hold Total Score Carlin Total Score (out of 56 points) 45 Carlin Impairment Rating 1 to 19% Impaired (Score 45-55 ) PT-OP-G Mobility & Gait Start: 06/03/20 08:14 Freq: Status: Active Protocol: Document 06/03/20 09:00 AMB (Rec: 06/03/20 11:58 AMB [email or web address]) OP Gait Assessment Comments Gait Comments Pt ambulates with walking stick in community. Ambulates with bilateral hip external rotation, WBOS, increased trunk lean. PT-OP-M Strength Start: 06/03/20 08:14 Freq: Status: Active Protocol: Document 06/03/20 09:00 AMB (Rec: 06/03/20 11:58 AMB [email or web address]) Hip Strength Hip Manual Muscle Testing Right Flexion (L2) 4 Good Extension (S1) 4 Good Abduction 3- Fair- Left Flexion (L2) 4 Good Extension (S1) 3 Fair Abduction 2+ Poor+ Knee Strength Knee Manual Muscle Testing Right Flexion (S2) 4 Good Extension (L3) 4 Good Left Flexion (S2) 4 Good Extension (L3) 4- Good- Ankle/Foot Strength Ankle and Foot Manual Muscle Testing Right Dorsiflexion (L4) 4 Good Plantarflexion (S1) 4 Good Left Dorsiflexion (L4) 3+ Fair+ Plantarflexion (S1) 4 Good PT-OP-Q Treatments Start: 06/03/20 08:14 Freq: Status: Active Protocol: Document 07/15/20 10:25 AMB (Rec: 07/15/20 10:38 AMB [id number]) Gym Equipment Shuttle Recovery Bilateral Squats Details cued knee alignment with toes see medial insoles Resistance 62 Shuttle Recovery Platform Stable Reps/Time 2x10 Unilateral Squats Details cued knee alignment with toes see medial insole Resistance 25 Shuttle Recovery Platform Stable Reps/Time 2x10 Shuttle Balance 1 Details RED Reps/Duration 10 min Comments head turns and modifed tandem stance Therapeutic Exercises Standing Exercises 2 Standing Exercise Name sidestepping Comments yellow band Neuro Re-Education Treatment Balance Activities 2 Details stride stance with eyes closed Comments challenging on foam 1 Details stride stance with head turns eyes open Comments hand hovering over rail on foam PT-OP-T Assessment and Plan Start: 06/03/20 08:14 Freq: Status: Active Protocol: Document 07/15/20 10:45 AMB (Rec: 07/15/20 15:05 AMB [email or web address]) Physical Therapy Assessment Assessment Summary Assessment Yanni continues to have hip abductor weakness, but is tolerating higher level balance exercises. Physical Therapy Plan Next Visit Focus/Plan Next Note Type Treatment Note Next Visit Plan Review sit to stand, supine clamshell, sidestepping, blue airex balance
--- NOTE | 2020-07-21 15:53 | PT.OTN ---
Current Diagnoses Stiffness of unspecified joint, not elsewhere classified (07/21/20) Nausea with vomiting, unspecified (07/21/20) Other abnormalities of gait and mobility (07/21/20) History of falling (07/21/20) Physical Therapy Treatment Note PT-OP-A Visit Information Start: 06/03/20 08:14 Freq: Status: Active Protocol: Document 07/21/20 14:25 AMB (Rec: 07/21/20 14:56 AMB [id number]) Out-Patient Physical Therapy Visit Information Visit Information Visit Type Treatment Note Visit Start Time 14:15 Visit Stop Time 15:00 Total Visit Minutes 45 Visit Number 13 PT-OP-B Current Condition Start: 06/03/20 08:14 Freq: Status: Active Protocol: Document 06/03/20 09:01 AMB (Rec: 06/03/20 09:17 AMB [id number]) Current Condition History of Current Condition Onset Date 1 month ago Current Complaints Poor balance, history of falling History of Current Condition Pt reports 1 fall in last 6 months, a month ago. Foot caught on the floor walking without assistive device while carrying a bag. Fell on face. Now using walking stick. 2- 3 near falls in last month. 4 stairs to enter with a railing, single level home, lives in a single level home. Lives with her sister. Pt with history of low back pain. Denies numbness/tingling. Old history of vertigo, but none currently, but does feel if she's hurrying or turning her head quickly then more likely to fall. Feels like L leg is weak. Vision is ok, previous history of cateract surgery, but good now. 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, osteoporosis, neck pain, back pain PT-OP-C Subjective Start: 06/03/20 08:14 Freq: Status: Active Protocol: Document 07/21/20 14:15 AMB (Rec: 07/21/20 15:51 AMB [email or web address]) OP-PT Subjective Patient Comments Patient Comments Yanni feels like she is doing better. She forgot her walking stick today and feels like that is a good thing that she was good enough to forget it. PT-OP-D Balance Start: 06/03/20 08:14 Freq: Status: Active Protocol: Document 06/03/20 09:00 AMB (Rec: 06/03/20 11:58 AMB [email or web address]) Carlin Balance Assessment Evaluation Sitting to Standing Ability Independent w/out Hands Unsupported Stance Safely- 2 minutes Sitting Unsupported, Feet on Floor Safely- 2 minutes Standing to Sitting Ability Safely, Minimal Hand Use Transfer Ability Safely, Minimal Hand Use Unsupported Stance- Eyes Closed Safely, 10 seconds Unsupported Stance- Eyes Open Independent, 1 minute Reaching Forward Standing Confidently, 10 inches Pick- Up Object From Floor Independent/Safe Look Behind Shoulder - Standing Turns Sideways Only Turning 360 Degrees Turns slowly, but safely Unsupported Stance, Alternating Feet on 4 Steps w/Supervision Stair Unsupported Tandem Stance Small Step- 30 seconds Unilateral Leg Stance Lifts Leg/Unable to Hold Total Score Carlin Total Score (out of 56 points) 45 Carlin Impairment Rating 1 to 19% Impaired (Score 45-55 ) PT-OP-G Mobility & Gait Start: 06/03/20 08:14 Freq: Status: Active Protocol: Document 06/03/20 09:00 AMB (Rec: 06/03/20 11:58 AMB [email or web address]) OP Gait Assessment Comments Gait Comments Pt ambulates with walking stick in community. Ambulates with bilateral hip external rotation, WBOS, increased trunk lean. PT-OP-M Strength Start: 06/03/20 08:14 Freq: Status: Active Protocol: Document 06/03/20 09:00 AMB (Rec: 06/03/20 11:58 AMB [email or web address]) Hip Strength Hip Manual Muscle Testing Right Flexion (L2) 4 Good Extension (S1) 4 Good Abduction 3- Fair- Left Flexion (L2) 4 Good Extension (S1) 3 Fair Abduction 2+ Poor+ Knee Strength Knee Manual Muscle Testing Right Flexion (S2) 4 Good Extension (L3) 4 Good Left Flexion (S2) 4 Good Extension (L3) 4- Good- Ankle/Foot Strength Ankle and Foot Manual Muscle Testing Right Dorsiflexion (L4) 4 Good Plantarflexion (S1) 4 Good Left Dorsiflexion (L4) 3+ Fair+ Plantarflexion (S1) 4 Good PT-OP-Q Treatments Start: 06/03/20 08:14 Freq: Status: Active Protocol: Document 07/21/20 14:15 AMB (Rec: 07/21/20 15:51 AMB [email or web address]) Gym Equipment Shuttle Recovery Bilateral Squats Details cued knee alignment with toes see medial insoles Resistance 50 Shuttle Recovery Platform Stable Reps/Time 2x10 Unilateral Squats Details cued knee alignment with toes see medial insole Resistance 25 Shuttle Recovery Platform Stable Reps/Time 2x10 Therapeutic Exercises Standing Exercises 4 Standing Exercise Name lunges Reps/Minutes 2x10 3 Standing Exercise Name squat- mini Reps/Minutes 10 1 Standing Exercise Name hip abd Reps/Minutes x20 Comments holding onto the wall, vc to avoid ER Neuro Re-Education Treatment Balance Activities 2 Details stride stance with eyes closed Comments challenging on foam 1 Details stride stance with head turns eyes open Comments hand hovering over rail on foam PT-OP-T Assessment and Plan Start: 06/03/20 08:14 Freq: Status: Active Protocol: Document 07/21/20 14:15 AMB (Rec: 07/21/20 15:51 AMB [email or web address]) Physical Therapy Assessment Assessment Summary Assessment Yanni required less seated rest breaks today, but does continue to have LE weakness. Physical Therapy Plan Next Visit Focus/Plan Next Note Type Progress Note
--- NOTE | 2020-08-16 13:32 | PT.OPDS ---
Current Diagnoses Stiffness of unspecified joint, not elsewhere classified (07/21/20) Nausea with vomiting, unspecified (07/21/20) Other abnormalities of gait and mobility (07/21/20) History of falling (07/21/20) Visit Care Team Role Provider Type Todd Lanza DO Attending Provider Physician Family Provider Primary Care Provider Referring Provider Specialty: [facility] Practice Address: [address] [place] [address], [facility] Email: Visit Number Visit Number 13 Discharge Summary PT-OP-B Current Condition Start: 06/03/20 08:14 Freq: Status: Active Protocol: Document 06/03/20 09:01 AMB (Rec: 06/03/20 09:17 AMB [id number]) Current Condition History of Current Condition Onset Date 1 month ago Current Complaints Poor balance, history of falling History of Current Condition Pt reports 1 fall in last 6 months, a month ago. Foot caught on the floor walking without assistive device while carrying a bag. Fell on face. Now using walking stick. 2- 3 near falls in last month. 4 stairs to enter with a railing, single level home, lives in a single level home. Lives with her sister. Pt with history of low back pain. Denies numbness/tingling. Old history of vertigo, but none currently, but does feel if she's hurrying or turning her head quickly then more likely to fall. Feels like L leg is weak. Vision is ok, previous history of cateract surgery, but good now. 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, osteoporosis, neck pain, back pain PT-OP-C Subjective Start: 06/03/20 08:14 Freq: Status: Active Protocol: Document 07/21/20 14:15 AMB (Rec: 07/21/20 15:51 AMB [email or web address]) OP-PT Subjective Patient Comments Patient Comments Yanni feels like she is doing better. She forgot her walking stick today and feels like that is a good thing that she was good enough to forget it. PT-OP-D Balance Start: 06/03/20 08:14 Freq: Status: Active Protocol: Document 06/03/20 09:00 AMB (Rec: 06/03/20 11:58 AMB [email or web address]) Carlin Balance Assessment Evaluation Sitting to Standing Ability Independent w/out Hands Unsupported Stance Safely- 2 minutes Sitting Unsupported, Feet on Floor Safely- 2 minutes Standing to Sitting Ability Safely, Minimal Hand Use Transfer Ability Safely, Minimal Hand Use Unsupported Stance- Eyes Closed Safely, 10 seconds Unsupported Stance- Eyes Open Independent, 1 minute Reaching Forward Standing Confidently, 10 inches Pick- Up Object From Floor Independent/Safe Look Behind Shoulder - Standing Turns Sideways Only Turning 360 Degrees Turns slowly, but safely Unsupported Stance, Alternating Feet on 4 Steps w/Supervision Stair Unsupported Tandem Stance Small Step- 30 seconds Unilateral Leg Stance Lifts Leg/Unable to Hold Total Score Carlin Total Score (out of 56 points) 45 Carlin Impairment Rating 1 to 19% Impaired (Score 45-55 ) PT-OP-G Mobility & Gait Start: 06/03/20 08:14 Freq: Status: Active Protocol: Document 06/03/20 09:00 AMB (Rec: 06/03/20 11:58 AMB [email or web address]) OP Gait Assessment Comments Gait Comments Pt ambulates with walking stick in community. Ambulates with bilateral hip external rotation, WBOS, increased trunk lean. PT-OP-M Strength Start: 06/03/20 08:14 Freq: Status: Active Protocol: Document 06/03/20 09:00 AMB (Rec: 06/03/20 11:58 AMB [email or web address]) Hip Strength Hip Manual Muscle Testing Right Flexion (L2) 4 Good Extension (S1) 4 Good Abduction 3- Fair- Left Flexion (L2) 4 Good Extension (S1) 3 Fair Abduction 2+ Poor+ Knee Strength Knee Manual Muscle Testing Right Flexion (S2) 4 Good Extension (L3) 4 Good Left Flexion (S2) 4 Good Extension (L3) 4- Good- Ankle/Foot Strength Ankle and Foot Manual Muscle Testing Right Dorsiflexion (L4) 4 Good Plantarflexion (S1) 4 Good Left Dorsiflexion (L4) 3+ Fair+ Plantarflexion (S1) 4 Good PT-OP-T Assessment and Plan Start: 06/03/20 08:14 Freq: Status: Active Protocol: Document 08/16/20 13:29 AMB (Rec: 08/16/20 13:32 AMB [id number]) Physical Therapy Assessment Goals Three Impairment balance Short Term Goal (STG) Yanni will improve her single leg stance time to at least 5 seconds without hip drop. PROGRESS MADE- 3 seconds STG Duration 4 weeks Land Survey Technician Goal (LTG) Yanni will show improved balance by improving her Carlin Balance Score to 50/56 from 45 /56. LTG Duration MET Two Impairment strength Short Term Goal (STG) Yanni will improve her hip strength to 4/5 bilaterally. HIP abduction remains weak, linnea on L STG Duration 4 weeks Land Survey Technician Goal (LTG) Yanni will improve her strength so that she can ascend and descend a set of stairs without hip drop. LTG Duration 8 weeks One Impairment gait Short Term Goal (STG) Yanni will ambulate for 2 minuntes while distracted ( holding a conversation) without loss of balance. STG Duration MET Long-Term Goal (LTG) Yanni will walk for 6 minutes without loss of balance and without assistive device, since she walks in her home without an assistive device. LTG Duration 8 weeks Assessment Summary Assessment Yanni has been in and out of the hospital. Spoke with her daughter and she is back in the hospital and not doing well. Informed daughter that we will d/c her and that she would need a new referral to return to PT, since she is quite sick at the moment. Physical Therapy Plan Discharge Physical Therapy Discharge Reasons Change in Medical Status
== END 2020-08-18 12:16 | disposition home or self-care (01) ==
LOC: PHYS 14:15
PROVIDERS: Family Provider Family Medicine; PCP Family Medicine; Referring Provider Family Medicine; Visit Provider Family Medicine
DX: M25.60 Stiffness of unspecified joint, not elsewhere classified (principal); R26.89 Other abnormalities of gait and mobility; R11.2 Nausea with vomiting, unspecified; Z91.81 History of falling
CPT/HCPCS: 97110; 97112; 97116; 97162

== ENCOUNTER → 2020-10-21 10:57 | Outpatient (CLI) | payer MEDICARE, OTHER, SELFPAY ==
--- NOTE | 2020-10-21 11:01 | DI.RAD.S_ITS ---
PROCEDURE: XR FINGER RT MIN 2V INDICATIONS: RT FINGER PAIN TECHNIQUE: AP hand, 2 views of the right finger(s) acquired. COMPARISON: [facility], , FINGER RT, 07/30/2017, 16:09. FINDINGS: Bones: No fracture. Diffuse osteopenia. There is subtle cortical loss of the distal tuft of the middle finger. Scattered degenerative subchondral sclerosis and spurring. Severe narrowing of the 1st CMC joint and 2nd MCP joint. Soft tissues: Soft tissue swelling and possible ulceration or laceration at the tip of the middle finger. IMPRESSION: Subtle cortical bone loss involving the distal tuft of the middle finger in an area of soft tissue swelling. This raises the possibility of early osteomyelitis although further evaluation could be performed with MRI. Dictated by: Abundio Anaya M.D. on 10/21/2020 at 11:43 Approved by: Abundio Anaya M.D. on 10/21/2020 at 11:47
== END ==
PROVIDERS: Family Provider Family Medicine; PCP Family Medicine; Referring Provider Family Medicine; Visit Provider Family Medicine
DX: S61.302A Unspecified open wound of right middle finger with damage to nail, initial encounter (principal); L08.89 Other specified local infections of the skin and subcutaneous tissue; M79.89 Other specified soft tissue disorders
CPT/HCPCS: 73140; 87070; 87075; 87077; 87185; 87186; 87205

== ENCOUNTER → 2020-10-21 11:30 | Outpatient (CLI) | payer MEDICARE, OTHER, SELFPAY | PROVIDERS: Family Provider Family Medicine; PCP Family Medicine; Referring Provider Family Medicine; Visit Provider Family Medicine | DX: S61.302A Unspecified open wound of right middle finger with damage to nail, initial encounter (principal); M34.1 CR(E)ST syndrome; Z99.2 Dependence on renal dialysis; E46 Unspecified protein-calorie malnutrition; L08.89 Other specified local infections of the skin and subcutaneous tissue; M79.89 Other specified soft tissue disorders; I73.00 Raynaud's syndrome without gangrene; L98.496 Non-pressure chronic ulcer of skin of other sites with bone involvement without evidence of necrosis | CPT/HCPCS: 11042; 73140; 87070; 87075; 87077; 87185; 87186; 87205; 99214 ==

== ENCOUNTER → 2020-10-21 15:14 | Outpatient (ROUT) | payer MEDICARE, OTHER, SELFPAY | PROVIDERS: Family Provider Family Medicine; PCP Family Medicine; Visit Provider Family Medicine | DX: S61.302A Unspecified open wound of right middle finger with damage to nail, initial encounter (principal); L08.89 Other specified local infections of the skin and subcutaneous tissue | CPT/HCPCS: 87070; 87075; 87205 ==

== ENCOUNTER → 2020-10-28 12:19 | Outpatient (CLI) | payer MEDICARE, OTHER, SELFPAY ==
--- NOTE | 2020-10-28 | DI.MRI.S_ITS ---
PROCEDURE: MR HAND RT WO CON INDICATIONS: OPEN WOUND TO FINGER TECHNIQUE: Noncontrast coronal T1 spin echo and T2 fast spin echo with fat saturation, axial proton density fast spin echo and T2 fast spin echo with fat saturation, sagittal T1 spin echo and STIR through the hand and fingers. COMPARISON: [facility], CR, XR FINGER RT MIN 2V, 10/21/2020, 11:02. FINDINGS: Image quality: Excellent. Bones: There is focal mild edema in the tuft of the 3rd distal phalanx that is suspicious for mild osteomyelitis. The distal interphalangeal joint is maintained. Moderate to severe degenerative changes are seen at the 1st carpometacarpal joint with full-thickness cartilage loss, marginal osteophyte formation, and subchondral cystic changes. Degenerative changes are within the lunate and the capitate. The carpal bones are normally aligned. Soft tissues: Soft tissue edema is seen throughout the distal portion of the middle finger and there is focal skin irregularity of the distal tip of the middle finger, compatible with reported open wound. Visualized muscles demonstrate normal bulk and internal signal. No intramuscular masses identified. No ganglion cysts. IMPRESSION: 1. Skin irregularity at the distal tip of the 3rd finger is compatible with the reported open wound. There is soft tissue edema throughout the distal 3rd finger. Mild focal osseous edema is seen in the distal tuft of the 3rd distal phalanx that is suspicious for mild focal osteomyelitis. The abnormal signal intensity does not extend to the distal interphalangeal joint. 2. Degenerative changes within the 1st carpometacarpal joint as well as within the capitate and lunate. Dictated by: Adolph Bhatti M.D. on 10/28/2020 at 13:16 Approved by: Adolph Bhatti M.D. on 10/28/2020 at 13:23
== END ==
PROVIDERS: Family Provider Family Medicine; PCP Family Medicine; Referring Provider Family Medicine; Visit Provider Family Medicine
DX: S61.302A Unspecified open wound of right middle finger with damage to nail, initial encounter (principal); X58.XXXA Exposure to other specified factors, initial encounter
CPT/HCPCS: 73218

== ENCOUNTER → 2020-10-28 13:16 | Outpatient (CLI) | payer MEDICARE, OTHER, SELFPAY | PROVIDERS: Family Provider Family Medicine; PCP Family Medicine; Referring Provider Family Medicine; Visit Provider Family Medicine | DX: S61.302A Unspecified open wound of right middle finger with damage to nail, initial encounter (principal); M34.1 CR(E)ST syndrome; M86.641 Other chronic osteomyelitis, right hand; Z99.2 Dependence on renal dialysis; E46 Unspecified protein-calorie malnutrition; X58.XXXA Exposure to other specified factors, initial encounter; I73.00 Raynaud's syndrome without gangrene; L98.496 Non-pressure chronic ulcer of skin of other sites with bone involvement without evidence of necrosis | CPT/HCPCS: 11042; 73218; 87070; 87075; 87077; 87147; 87186; 87205; 99214 ==

== ENCOUNTER → 2020-11-03 08:18 | Outpatient (CLI) | payer MEDICARE, OTHER, SELFPAY ==
--- NOTE | 2020-11-03 | DI.ECHO.S_ITS ---
Version: 1 Study ID: [id number] [place] [address] Name: AGUSTIN WATSON Study Date: 11/03/2020, 8: 40 AM : 1940 BP: 102 / 48 mmHg Gender: Female Height: 62 in Age: 80 Years Weight: 118 lb BSA: 1.53 mA? Ordering: FALLON ESCOBEDO Referring: FALLON ESCOBEDO Clinician: Corie Griffin Reason For Study: CARDIOMYOPATHY History: Summary Statements This is a limited echo to evaluate wall motion and LV systolic function. Normal sinus rhythm. Normal LV size, wall thickness, wall motion and LV systolic function. EF is 50-55%. Severe LA enlargement and mild RA enlargement. Mild MAC; MR severity was not properly assessed on current study. Compared to prior study 08/08/2020, LV is markedly more dynamic. EF is up from 30-35% to 50-55%. Procedure: A two-dimensional transthoracic echocardiogram with color flow and Doppler was performed in limited views only to assess Ejection fraction and wall motion. Left Ventricle: The left ventricle is normal in size and wall thickness. The ejection fraction is estimated to be 50-55%. Right Ventricle: The right ventricle is normal size. Right ventricular systolic function is mildly reduced. Atria: The left atrium is severely dilated. The right atrium is mildly dilated. Mitral Valve: There is mild mitral annular calcification. The mitral valve leaflets appear mildly thickened, but open well. Aortic Valve: Pulmonic Valve: Great Vessels: Pericardium/ Pleura: There is no pericardial effusion. There is no pleural effusion. 2D and M-Mode Measurements and Calculations LVIDd: 5.0 cm LVIDs: 3.7 cm IVSd: 0.85 cm LVPWd: 0.90 cm LV hall. diameter/BSA (cm/m^2): 3.3 LV sys. diameter/BSA (cm/m^2): 2.43 RVD1 (basal): 2.10 cm TAPSE: 1.56 cm LA A4 area: 26.7 locomotive firer/fireman? RA area: 18.2 locomotive firer/fireman? LA A2 area: 26.8 locomotive firer/fireman? RA long axis: 5.2 cm LA length (vol): 5.9 cm RA vol: 54.0 ml LA vol: 103.0 ml RA : 35.3 ml/mA? LA vol index: 67.4 ml/mA? Electronically signed by: Fallon Escobedo M.D. 11/03/2020, 11: 37 PM
== END ==
PROVIDERS: Family Provider Family Medicine; PCP Family Medicine; Referring Provider Internal Medicine; Visit Provider Internal Medicine
DX: I42.8 Other cardiomyopathies (principal)
CPT/HCPCS: 93307

== ENCOUNTER → 2020-11-03 12:15 | Outpatient (CLI) | payer MEDICARE, OTHER, SELFPAY | PROVIDERS: Family Provider Family Medicine; PCP Family Medicine; Referring Provider Family Medicine; Visit Provider Family Medicine | DX: S61.302A Unspecified open wound of right middle finger with damage to nail, initial encounter (principal); M34.1 CR(E)ST syndrome; M86.641 Other chronic osteomyelitis, right hand; Z99.2 Dependence on renal dialysis; E46 Unspecified protein-calorie malnutrition; B95.61 Methicillin susceptible Staphylococcus aureus infection as the cause of diseases classified elsewhere; I42.8 Other cardiomyopathies; Z79.2 Long term (current) use of antibiotics; I73.00 Raynaud's syndrome without gangrene; L98.496 Non-pressure chronic ulcer of skin of other sites with bone involvement without evidence of necrosis | CPT/HCPCS: 11042; 93307; 99214 ==

== ENCOUNTER → 2020-11-08 12:48 | Outpatient (CLI) | payer MEDICARE, OTHER, SELFPAY ==
[2020-11-08 15:51] LABS: Vitamin D 25 Hydroxy (D3) 64.5 ng/mL (30.0-100.0)
[2020-11-10 12:38] LABS: Immunoglobulin A, Serum 152 mg/dL (64-422); Immunoglobulin G,Serum 1069 mg/dL (586-1602); Immunoglobulin M, Serum 144 mg/dL (26-217)
[2020-11-10 15:08] LABS: Albumin 3.8 g/dL (2.9-4.4); Alpha-1-Globulin 0.2 g/dL (0.0-0.4); Alpha-2-Globulin 0.9 g/dL (0.4-1.0); Gamma Globulin 1.2 g/dL (0.4-1.8); Globulin Total 3.2 g/dL (2.2-3.9)
[2020-11-15 17:45] LABS: 1,25-Dihydroxy, Vitamin D-2 <10 pg/mL (.)
[2020-11-18 11:08] LABS: Free Lambda Lt Chains,Serum 101.3
== END ==
PROVIDERS: Family Provider Family Medicine; PCP Family Medicine; Referring Provider Internal Medicine Nephrology; Visit Provider Internal Medicine Nephrology
DX: E83.52 Hypercalcemia (principal)
CPT/HCPCS: 36415; 82306; 82397; 82652; 82784; 83883; 84155; 84165; 86334

== ENCOUNTER → 2020-11-10 11:41 | Outpatient (CLI) | payer MEDICARE, OTHER, SELFPAY | PROVIDERS: Family Provider Family Medicine; PCP Family Medicine; Referring Provider Family Medicine; Visit Provider Family Medicine | DX: S61.302A Unspecified open wound of right middle finger with damage to nail, initial encounter (principal); M34.1 CR(E)ST syndrome; M86.641 Other chronic osteomyelitis, right hand; Z99.2 Dependence on renal dialysis; E46 Unspecified protein-calorie malnutrition; B95.61 Methicillin susceptible Staphylococcus aureus infection as the cause of diseases classified elsewhere; Z79.2 Long term (current) use of antibiotics | CPT/HCPCS: 99212; 99213 ==

== ENCOUNTER → 2020-11-12 13:01 | Outpatient (CLI) | payer MEDICARE, OTHER, SELFPAY ==
[2020-11-12] MEDS: COVID-19 VACC #1, MRNA(MOD) 100 MCG/0.5 ML VIAL IM (13:14)
== END ==
PROVIDERS: Family Provider Family Medicine; PCP Family Medicine; Visit Provider Internal Medicine
DX: Z23 Encounter for immunization (principal)
CPT/HCPCS: 0011A; 91301

== ENCOUNTER 2020-11-16 20:03 | Emergency (ER) | payer MEDICARE, OTHER, SELFPAY ==
[2020-11-16] VITALS (14 sets, daily range): BP systolic 173–238; BP diastolic 70–98; PULSE 45–55; RESP 15–26; TEMP 36.6; O2SAT 91–99; BMI 19.6
--- NOTE | 2020-11-16 20:35 | ED_ITS ---
HPI - General Adult General Chief complaint: Urogenital-Female Stated complaint: possible UTI Time Seen by Provider: 11/16/20 20:21 Source: patient and family Mode of arrival: Wheelchair Limitations: no limitations History of Present Illness HPI narrative: Patient is a 80-year-old female. Is here with her daughter for evaluation of with a potentially think his urinary tract infection. The patient does have kidney disease and is on dialysis. She gets dialysis on Tuesdays and Saturdays. She did have a full dialysis treatment just prior to arrival here in the emergency department. The dialysis secondary to a episode of sepsis during a hospital stay for a small-bowel obstruction. She still does produce urine. She has a history of hypertension. She did not take her blood pressure medicines this evening. Her symptoms seem to start on Sunday per her and her daughter. She has had some abdominal tenderness. Some nausea but no vomiting. Patient's daughter also reports she has had some confusion recently as well. Also has had her 1st COVID vaccine. Related Data Home Medications Medication Instructions Recorded Confirmed ferrous sulfate 325 mg (65 mg 325 mg PO DAILY tab 10/28/18 05/28/20 iron) tablet acetaminophen 325 mg PO Q4H PRN 06/10/19 09/21/20 cholecalciferol (vitamin D3) 2,000 unit PO DAILY 06/10/19 09/21/20 [Vitamin D3] diphenhydramine HCl 25 mg PO PRN PRN 06/10/19 09/21/20 melatonin 5 mg tablet 5 mg PO BEDTIME PRN 03/25/20 09/21/20 psyllium PO 05/28/20 09/21/20 Previous Rx's Medication Instructions Recorded ondansetron HCl 4 mg tablet 4 mg PO Q8H PRN #24 tab 07/26/20 atorvastatin 10 mg tablet 10 mg PO BEDTIME #90 tab 10/09/20 metoprolol tartrate 25 mg tablet 25 mg PO BID #180 tab 10/09/20 nifedipine 90 mg tablet,extended 90 mg PO QPM #90 tab 10/09/20 release 24 hr pantoprazole 40 mg tablet,delayed 40 mg PO DAILY #90 tab 10/09/20 release pentoxifylline 400 mg 400 mg PO TID #270 tab 10/09/20 tablet,extended release sildenafil (pulm.hypertension) 20 20 mg PO TID #270 tab 10/09/20 mg tablet alprazolam 0.25 mg tablet 0.125 mg PO BID PRN #30 tab 10/15/20 hydrocodone 5 mg-acetaminophen 325 1 tab PO Q4-6H PRN #10 tab 10/22/20 mg tablet clopidogrel 75 mg tablet 75 mg PO DAILY #90 tab 11/10/20 Allergies Allergy/AdvReac Type Severity Reaction Status Date / Time carrot [CARROT] Allergy Severe EYES SWELL Verified 05/28/20 13:24 clindamycin [CLINDAMYCIN] AdvReac Severe DIARRHEA Verified 05/28/20 13:24 Review of Systems Constitutional Constitutional: Reports chills, Reports fatigue, Denies fever(s), Denies frequent falls and Reports weakness Eyes Eyes: Denies change in vision ENT Ears, Nose, Mouth, and Throat: Denies vertigo Cardiovascular Cardiovascular: Denies chest pain and Denies dyspnea Respiratory Respiratory: Denies dyspnea Gastrointestinal Gastrointestinal: Reports abdominal pain, Denies change in bowel habits, Reports nausea and Denies vomiting Genitourinary Genitourinary: Denies dysuria Genitourinary: Denies dysuria Musculoskeletal Musculoskeletal: Reports myalgias, Denies arthralgias and Denies myalgias Integumentary/Breasts Skin/Breast: Denies rash Neurologic Neurologic: Denies abnormal speech, Reports confusion, Denies vertigo, Denies f requent falls and Reports weakness Psychiatric Psychiatric: Reports confusion Endocrine Endocrine: Reports fatigue Hematologic/Lymphatic On Anticoagulants: No Allergic/Immunologic Allergic/Immunologic: Denies urticaria Patient History Medical History Acute kidney failure Anxiety about health Back stiffness Balance problem Cervical somatic dysfunction Chronic nausea Chronic neck pain CKD (chronic kidney disease) (Unknown) Constipation Cranial somatic dysfunction CREST syndrome (Unknown) GERD (gastroesophageal reflux disease) (Unknown) Hiatal hernia with gastroesophageal reflux disease and esophagitis Hyperkalemia Hyperlipemia (Unknown) Hypertension (Unknown) Nausea with vomiting Osteopenia (~04/2016) Osteoporosis (~04/2016) Pain of left great toe Raynaud's disease (Unknown) Segmental and somatic dysfunction of abdomen and other regions Segmental and somatic dysfunction of abdomen and other regions Segmental and somatic dysfunction of pelvic region Segmental and somatic dysfunction of rib cage Segmental and somatic dysfunction of sacral region Segmental and somatic dysfunction of thoracic region Somatic dysfunction of right lower extremity Surgical History History of cataract removal with insertion of prosthetic lens History of rectal surgery Status post breast biopsy Status post hysterectomy Status post tonsillectomy and adenoidectomy Family History Father Congestive heart failure Hypertension Mother Myocardial infarction Social History Smoking Status: Never smoker alcohol intake: current Smoking Status: Never smoker alcohol intake frequency: 0-2 drinks per day Substance Use Type: does not use Exam Initial Vital Signs Initial Vital Signs: Vital Signs Temperature 97.8 F 11/16/20 20:25 Pulse Rate 55 L 11/16/20 20:25 Respiratory Rate 15 11/16/20 20:25 Blood Pressure 187/70 H 11/16/20 20:25 Pulse Oximetry 97 11/16/20 20:25 Const General: No in distress, frail appearing and ill appearing Limitations: mental status not altered HENMT Head: normal to inspection and normocephalic Eyes General: appearance normal, both eyes and all related structures Resp Effort & Inspection: normal respiratory effort Auscultation: clear to auscultation bilaterally Cardio Rate: bradycardic Rhythm: regular rhythm Pulses: radial pulses present GI Inspection: non-distended Palpation: No tender Skin Lesions: no lesions Rashes: no rashes Neuro General: patient alert, patient awake and patient oriented x3 Cognition: normal cognition Speech: speech normal Extrem General: capillary refill normal and No edema Other: Bandage over finger of right hand without signs of redness. Her left great toe also appears very well. No signs of gout. Psych Appearance: grossly normal and well kempt Scores GCS Dannie coma scale eye opening: Spontaneous [place]annie coma scale verbal response: Orientated [place] coma scale motor response: Obey commands [place] coma scale total score: 15 Course Orders Ordered: ED Orders 11/16/20 20:20 Urine Microscopic Stat 11/16/20 20:23 EKG-12 Lead Stat 11/16/20 21:00 Complete Blood Count AUTO DIFF Stat Comprehensive Metabolic Panel Stat Lactate (Lactic Acid) Stat Lipase Stat Magnesium Stat Phosphorous Stat Procalcitonin Stat Troponin & CK Cardiac Panel Stat Uric Acid Stat 11/16/20 22:38 CT abdomen pelvis wo con Stat 11/17/20 00:50 COVID19 -Nasal swab/Pre-Proc Stat Discontinued Medications Alprazolam (Alprazolam 0.25 Mg Tablet) 0.25 mg PO NOW ONE Stop: 11/16/20 21:24 Last Admin: 11/16/20 21:36 Dose: 0.25 mg Documented by: CIRA Metoprolol Succinate (Metoprolol Er 25 Mg Tablet) 25 mg PO NOW ONE Stop: 11/16/20 23:10 Last Admin: 11/16/20 23:38 Dose: Not Given Documented by: CIRA Metoprolol Tartrate (Metoprolol Ir 25 Mg Tablet) 25 mg PO NOW ONE Stop: 11/16/20 23:30 Last Admin: 11/16/20 23:33 Dose: 25 mg Documented by: CIRA Nifedipine (Nifedipine 30 Mg Tab Er) 90 mg PO NOW ONE Stop: 11/16/20 23:10 Last Admin: 11/16/20 23:33 Dose: 90 mg Documented by: CIRA Ondansetron HCl (Ondansetron 4 Mg/2 Ml Inj) 4 mg IV NOW ONE Stop: 11/16/20 21:40 Last Admin: 11/16/20 21:41 Dose: 4 mg Documented by: CIRA Vital Signs Vital signs: Vital Signs - 8 hr 11/16/20 20:25 11/16/20 20:26 11/16/20 20:30 Temperature 97.8 F Pulse Rate 55 L Respiratory Rate 15 Blood Pressure 187/70 H 187/70 H 173/70 H Pulse Oximetry 97 11/16/20 21:00 11/16/20 21:01 11/16/20 21:30 Temperature Pulse Rate 48 L 47 L 47 L Respiratory Rate 25 H 24 26 H Blood Pressure 200/80 H Pulse Oximetry 93 91 96 11/16/20 21:31 11/16/20 22:00 11/16/20 22:05 Temperature Pulse Rate 47 L 46 L 45 L Respiratory Rate 26 H 19 24 Blood Pressure 191/79 H 206/90 H 203/90 H Pulse Oximetry 99 96 93 11/16/20 22:30 11/16/20 23:00 11/16/20 23:05 Temperature Pulse Rate 47 L 46 L 45 L Respiratory Rate 23 21 20 Blood Pressure 216/93 H 238/98 H 222/95 H Pulse Oximetry 99 97 91 11/16/20 23:30 11/16/20 23:31 11/17/20 00:00 Temperature Pulse Rate 46 L 47 L 46 L Respiratory Rate 19 18 23 Blood Pressure 219/98 H 223/96 H Pulse Oximetry 11/17/20 00:14 Temperature Pulse Rate 46 L Respiratory Rate 20 Blood Pressure 233/97 H Pulse Oximetry 89 L Medical Decision Making Medical Records Medical records reviewed: Yes I reviewed the patient's medical records. Lab Data Lab results reviewed: Yes I reviewed the patient's lab results. Result diagrams: 11/16/20 21:00 11/16/20 21:00 Labs: Lab Results 11/16/20 11/16/20 11/16/20 Range/Units 20:20 21:00 21:00 WBC 11.2 H (4.5-11.0) X10^3/uL RBC 4.14 (4.0-5.2) X10^6/uL Hgb 11.8 L (12.0-16.0) g/dL Hct 35.4 L (36-46) % MCV 85.7 (80-100) fL MCH 28.5 (26-34) PG MCHC 33.2 (30-36) % RDW 18.7 H (11.6-14.8) % Plt Count 137 L (150-400) X10^3/uL Neut % (Auto) 91.0 H (50-75) % Lymph % (Auto) 6.9 L (25-40) % [place] % (Auto) 2.0 L (3-14) % Eos % (Auto) 0.0 L (2-4) % Baso % (Auto) 0.1 (0-2) % Neut # (Auto) 90838 H (4844-6110) /uL Lymph # (Auto) 800 L (4313-8887) /uL [place] # (Auto) 200 (0-900) /uL Eos # (Auto) 0 (0-450) /uL Baso # (Auto) 0 (0-100) /uL Sodium 133 L (137-145) mmol/L Potassium 4.1 (3.4-5.1) mmol/L Chloride 95 L (98-107) mmol/L Carbon Dioxide 27 (22-32) mmol/L BUN 30 H (7-17) mg/dL Creatinine 1.53 H (0.52-1.04) mg/dL Estimated GFR 32.8 L (>60) mL/min BUN/Creatinine Ratio 19.6 (6-22) Glucose 113 H (80-110) mg/dL Lactate (0.7-2.1) mmol/L Uric Acid (2.5-6.2) mg/dL Calcium 9.6 (8.4-10.2) mg/dL Phosphorus (2.8-4.1) mg/dL Magnesium (1.6-2.3) mg/dL Total Bilirubin 0.6 (0.2-1.3) mg/dL AST 30 (14-36) IU/L ALT 16 (<35) IU/L Alkaline Phosphatase 108 (38-126) U/L Total Creatine Kinase (30-135) U/L CK-MB (CK-2) CK-MB (CK-2) Rel Index Troponin I (0.01-0.034) ng/mL Total Protein 7.0 (6.3-8.2) g/dL Albumin 4.0 (3.5-5.0) g/dL Globulin 3.0 (1.7-4.1) g/dL Albumin/Globulin Ratio 1.3 (1.0-2.8) Lipase 2220 H (23-300) U/L Procalcitonin (<0.5) ng/mL Urine RBC 0-1/hpf (0-5/HPF) Urine WBC 0-1/hpf (0-5/HPF) Ur Squamous Epith Cells 0-1 /hpf (0-5/HPF) Urine Bacteria None seen (None) Ur Culture Indicated? Cult not indicated 11/16/20 11/16/20 11/16/20 Range/Units 21:00 21:00 21:00 WBC (4.5-11.0) X10^3/uL RBC (4.0-5.2) X10^6/uL Hgb (12.0-16.0) g/dL Hct (36-46) % MCV (80-100) fL MCH (26-34) PG MCHC (30-36) % RDW (11.6-14.8) % Plt Count (150-400) X10^3/uL Neut % (Auto) (50-75) % Lymph % (Auto) (25-40) % [place] % (Auto) (3-14) % Eos % (Auto) (2-4) % Baso % (Auto) (0-2) % Neut # (Auto) (3777-6738) /uL Lymph # (Auto) (7742-0811) /uL [place] # (Auto) (0-900) /uL Eos # (Auto) (0-450) /uL Baso # (Auto) (0-100) /uL Sodium (137-145) mmol/L Potassium (3.4-5.1) mmol/L Chloride (98-107) mmol/L Carbon Dioxide (22-32) mmol/L BUN (7-17) mg/dL Creatinine (0.52-1.04) mg/dL Estimated GFR (>60) mL/min BUN/Creatinine Ratio (6-22) Glucose (80-110) mg/dL Lactate 1.6 (0.7-2.1) mmol/L Uric Acid 2.6 (2.5-6.2) mg/dL Calcium (8.4-10.2) mg/dL Phosphorus 3.1 (2.8-4.1) mg/dL Magnesium 1.6 (1.6-2.3) mg/dL Total Bilirubin (0.2-1.3) mg/dL AST (14-36) IU/L ALT (<35) IU/L Alkaline Phosphatase (38-126) U/L Total Creatine Kinase < 20 L (30-135) U/L CK-MB (CK-2) TNP CK-MB (CK-2) Rel Index TNP Troponin I 0.018 (0.01-0.034) ng/mL Total Protein (6.3-8.2) g/dL Albumin (3.5-5.0) g/dL Globulin (1.7-4.1) g/dL Albumin/Globulin Ratio (1.0-2.8) Lipase (23-300) U/L Procalcitonin 0.12 (<0.5) ng/mL Urine RBC (0-5/HPF) Urine WBC (0-5/HPF) Ur Squamous Epith Cells (0-5/HPF) Urine Bacteria (None) Ur Culture Indicated? Urine Dip Bedside Urine Glucose Negative Bedside Urine Bilirubin - Negative Bedside Urine Ketone - Negative Urine Specific [place] 1.010 Bedside Urine Occult Blood +/- Bedside Urine pH 7 Bedside Urine Protein + 30 Bedside Urine Urobilinogen - Negative Bedside Urine Nitrite - Negative Bedside Urine Leukocytes - Negative Esterase Point of care testing: Urine Dip Bedside Urine Glucose Negative Bedside Urine Bilirubin - Negative Bedside Urine Ketone - Negative Urine Specific [place] 1.010 Bedside Urine Occult Blood +/- Bedside Urine pH 7 Bedside Urine Protein + 30 Bedside Urine Urobilinogen - Negative Bedside Urine Nitrite - Negative Bedside Urine Leukocytes - Negative Esterase Imaging Data CT scan - abdomen/pelvis: Radiologist's Impression: Bilateral pleural effusion with probable atelectasis of the lung bases There is proximal small bowel wall thickening especially at the duodenum with. Duodenal fat stranding. Did consider duodenitis There are several small fluid collection surrounding the pancreas. Differential includes pancreatic cystic lesions, or pseudocyst prior episodes of pancreatitis. Follow-up as clinically indicated. Indeterminate left pelvic fluid collection. Large ovarian cyst as possible. Consider nonemergent ultrasound evaluation. ECG Data Attestation: I personally reviewed and interpreted this ECG as follows: Prior ECG tracings: not available for review Interpretation: Sinus bradycardia Ventricular rate of 47 Normal QRS QTC [address] T wave changes MDM Narrative Medical decision making narrative: Patient has multiple chronic medical problems. She did receive dialysis earlier today in her potassium and elect rolytes are unremarkable. She does not have an elevated white count but does have a left shift. She is currently on doxycycline for a right finger infection which looks well on exam today. Her urinalysis does not show any signs of infection. She is hypertensive. She has no signs today of hypertensive emergency. Nonspecific changes on her EKG. Her troponin is negative. Also has abdominal pain. CT scan shows inflammation around the duodenum. This could potentially be the cause of the elevation in her lipase. Also has fluid collections around the pancreas. Patient's daughter states that she has had these in the past. She overall looks very poorly but is not toxic appearing. She is very frail appearing. I did discuss the case with Dr. Copeland hospitalist [facility] who accepts the patient in transfer. I also discussed the transfer with the patient and her daughter. They expressed understanding and agreement. Patient is stable for transport. Discharge Plan Departure Patient Disposition: [facility] Clinical Impression: Pancreatitis, Hypertension, Duodenitis, Pleural effusion Prescriptions: No Action ferrous sulfate 325 mg (65 mg iron) tablet 325 mg PO DAILY RF: 0 Hold Instructions: Home Medication placed on hold at Doctor's office ondansetron HCl [Zofran] 4 mg tablet 4 mg PO Q8H PRN (Reason: nausea and vomiting) Qty: 24 RF: 1 metoprolol tartrate 25 mg tablet 25 mg PO BID Qty: 180 RF: 3 pentoxifylline 400 mg tablet extended release 400 mg PO TID Qty: 270 RF: 3 nifedipine 90 mg tablet extended release 24hr 90 mg PO QPM Qty: 90 RF: 3 sildenafil (pulm.hypertension) 20 mg tablet 20 mg PO TID Qty: 270 RF: 3 atorvastatin 10 mg tablet 10 mg PO BEDTIME Qty: 90 RF: 3 pantoprazole 40 mg tablet,delayed release (DR/EC) 40 mg PO DAILY Qty: 90 RF: 3 alprazolam 0.25 mg tablet 0.125 mg PO BID PRN (Reason: anxiety) Qty: 30 RF: 0 hydrocodone-acetaminophen 5-325 mg tablet 1 tab PO Q4-6H PRN (Reason: pain) Qty: 10 RF: 0 clopidogrel [Plavix] 75 mg tablet 75 mg PO DAILY Qty: 90 RF: 1 psyllium PO RF: 0 melatonin 5 mg tablet 5 mg PO BEDTIME PRNRF: 0 acetaminophen 325 mg Tablet 325 mg PO Q4H PRN (Reason: PAIN OR FEVER) RF: 0 diphenhydramine HCl 25 mg Capsule 25 mg PO PRN PRN (Reason: Allergy Symptoms) RF: 0 cholecalciferol (vitamin D3) [Vitamin D3] 2,000 unit Capsule 2,000 unit PO DAILY RF: 0 Referrals: Todd Lanza DO [Primary Care Provider] -
[2020-11-16 20:39] LABS: Bacteria Urine None Seen
[2020-11-16 20:49] LABS: RBC Urine 0-1/HPF (0-5/HPF); Squamous Epithelial Cell Urine 0-1 /HPF (0-5/HPF); WBC Urine 0-1/HPF (0-5/HPF)
[2020-11-16 20:50] LABS: Culture Indicated Urine Cult Not Indicated
--- NOTE | 2020-11-16 21:06 | PC.NURSE ---
Patient's daughter states that her mother has been acting different since last Sunday with increasing confusion and weakness, and that she had reported urgency and frequency with urination, including some incontinence. She states that her mother used some sandy-wipes that have been recalled by the track mechanic and is concerned that she might have a UTI.
[2020-11-16 21:12] LABS: Add Manual Diff / Slide Review NO; Basophils Absolute Auto 0 /uL (0-100); Basophils Percent Auto 0.1 % (0-2); Eosinophils Absolute Auto 0 /uL (0-450); Hematocrit 35.4 % (36-46); Hemoglobin 11.8 g/dL (12.0-16.0); Lymphocytes Absolute Auto 800 /uL (1100-4500); Lymphocytes Percent Auto 6.9 % (25-40); Mean Corpuscular HGB Conc 33.2 % (30-36); Mean Corpuscular Hemoglobin 28.5 PG (26-34); Mean Corpuscular Volume 85.7 fL (80-100); Monocytes Absolute Auto 200 /uL (0-900); Neutrophils Absolute Auto 10100 /uL (1500-7000); Platelet Count 137 X10^3/uL (150-400); Red Blood Cell Count 4.14 X10^6/uL (4.0-5.2); Red Cell Distribution Width 18.7 % (11.6-14.8); White Blood Cell Count 11.2 X10^3/uL (4.5-11.0)
[2020-11-16 21:26] LABS: Alanine Aminotransferase 16 IU/L (<35); Albumin Globulin Ratio 1.3 (1.0-2.8); Alkaline Phosphatase 108 U/L (38-126); Aspartate Aminotransferase 30 IU/L (14-36); BUN Creatinine Ratio 19.6 (6-22); Bilirubin Total 0.6 mg/dL (0.2-1.3); Blood Urea Nitrogen 30 mg/dL (7-17); Calcium 9.6 mg/dL (8.4-10.2); Carbon Dioxide 27 mmol/L (22-32); Chloride 95 mmol/L (98-107); Creatine Kinase < 20 U/L (30-135); Estimated Glomerular Filt Rate 32.8 mL/min (>60); Glucose 113 mg/dL (80-110); HEMOLYSIS < 15 (0-50); Magnesium 1.6 mg/dL (1.6-2.3); Phosphorous 3.1 mg/dL (2.8-4.1); Potassium 4.1 mmol/L (3.4-5.1); Sodium 133 mmol/L (137-145)
[2020-11-16 21:27] LABS: Lactate (Lactic Acid) 1.6 mmol/L (0.7-2.1); Uric Acid 2.6 mg/dL (2.5-6.2)
[2020-11-16] MEDS: ALPRAZolam 0.25 MG TABLET PO (21:36)
[2020-11-16 21:37] LABS: Lipase 2220 U/L (23-300)
[2020-11-16 21:38] LABS: Troponin I 0.018 ng/mL (0.01-0.034)
[2020-11-16] MEDS: ONDANSETRON 4 MG/2 ML INJ IV (21:41)
[2020-11-16 21:43] LABS: Procalcitonin 0.12 ng/mL (<0.5)
--- NOTE | 2020-11-16 22:38 | DI.CT.S_ITS ---
PROCEDURE: CT ABDOMEN PELVIS WO CON INDICATIONS: Generalized abdominal pain TECHNIQUE: Noncontrast 5 mm thick sections acquired from the diaphragms to the symphysis. 5 mm coronal and sagittal reformats were then performed. For radiation dose reduction, the following was used: automated exposure control, adjustment of mA and/or kV according to patient size. COMPARISON: [facility], CT, CT ABDOMEN PELVIS WITHOUT CONTRAST, 07/28/2020, 11:06. [facility], CT, CT CHEST ABDOMEN PELVIS WITHOUT CONTRAST, 08/08/2020, 17:07. FINDINGS: Image quality: Diagnostic. ABDOMEN: Lung bases: There are small bilateral pleural effusions with associated compressive atelectasis within the lower lobes. Cardiomegaly is redemonstrated. A partially visualized catheter is noted within the right atrium. There is prominent mitral annular calcification. Solid organs: Noncontrast evaluation of the liver redemonstrates a small hypodensity in the anterior right hepatic dome measuring approximately 0.4 cm which is too small to characterize but likely represents a cyst. The gallbladder is distended with multiple partially calcified gallstones present. Mild peripancreatic fat stranding is demonstrated along the pancreatic head, uncinate process, and body. Multiple small peripancreatic fluid collections are redemonstrated, with the largest measuring up to approximately 2.5 x 1.8 cm inferior to the body of the pancreas. This appears increased in size from 2.1 x 1.5 cm at a comparable level on the prior study. Additional smaller peripancreatic cysts appears similar in size compared to the recent prior studies including a 2.1 x 1.7 cm cyst adjacent to the pancreatic head. Spleen is normal in size. No adrenal nodules. Kidneys demonstrate no hydronephrosis. Multiple bilateral renal cysts are redemonstrated. Peritoneum and bowel: There is segmental small bowel wall thickening involving the length of the duodenum as well as the proximal jejunum with associated fat stranding. There is mild associated fat stranding and edema within the adjacent mesentery. Mildly prominent adjacent subcentimeter mesenteric lymph nodes are also noted. More distal loops of small bowel are nondistended. The colon appears normal in caliber and wall thickness with a moderate amount of colonic stool. No evidence of appendicitis. There is colonic diverticulosis without acute diverticulitis. A small amount of free fluid is demonstrated within the upper abdomen. No intraperitoneal free air. Nodes and vessels: No retroperitoneal or mesenteric adenopathy by size criteria. Aorta and inferior vena cava are normal in caliber. There is extensive atherosclerotic vascular calcification of the aorta and iliac vessels. Miscellaneous: No ventral hernias. PELVIS: Genitourinary: Bladder wall thickness is normal. The uterus is surgically absent. Posteriorly within the left hemipelvis, there is a thin walled cystic lesion measuring approximately 5.8 x 4.4 cm in transverse dimension. This appears similar to slightly increased in size compared to the recent prior CTs. Miscellaneous: No inguinal hernias or adenopathy. Bones: No suspicious bony lesions. No vertebral body compression fractures. IMPRESSION: 1. New segmental bowel wall thickening with associated fat stranding and mesenteric edema involving the duodenum and proximal jejunum consistent with a nonspecific enteritis, likely infectious or inflammatory. 2. Mild peripancreatic fat stranding may reflect sequelae of the adjacent enteritis or a pancreatitis. Recommend correlation clinically. 3. Multiple peripancreatic fluid collections redemonstrated. These appear similar to the recent prior studies with possible slight increase in size of the largest collection inferior to the pancreatic body. The differential again includes pancreatic pseudocysts/acute peripancreatic collections or cystic pancreatic lesions such as side branch IPMNs. Recommend a follow-up pancreatic protocol MRI for further evaluation in 3-6 months if clinically indicated. 4. Small bilateral pleural effusions with associated compressive atelectasis. 5. Cystic lesion in the left hemipelvis appears similar to slightly increased in size compared to the recent prior studies. Findings are nonspecific and the differential includes an ovarian or paraovarian cyst, lymphocele, or mesenteric cyst. A follow-up ultrasound may be performed in 6 months to demonstrate stability. 6. Cholelithiasis and distention of the gallbladder without definite wall thickening. If there is clinical suspicion for cholecystitis, further evaluation may be obtained with ultrasound. Dictated by: Josué Faulkner M.D. on 11/17/2020 at 8:32 Approved by: Josué Faulkner M.D. on 11/17/2020 at 8:58
[2020-11-16] MEDS: METOPROLOL IR 25 MG TABLET PO (23:33)
[2020-11-16] MEDS: NIFEdipine 30 MG TAB ER 90 MG PO (23:33)
--- NOTE | 2020-11-16 23:46 | PC.NURSE ---
Pt has been hypertensive and bradycardic for the majority of this shift. MD aware; home medications ordered and given. Daughter is aware; awaiting further testing.
[2020-11-17] VITALS: BP 223/96; PULSE 46; RESP 23
[2020-11-17 00:14] VITALS: BP 233/97; PULSE 46; RESP 20; O2SAT 89
[2020-11-17 01:15] LABS: COVID19 -Nasal RAPID Negative (Negative)
--- NOTE | 2020-11-17 01:20 | PC.NURSE ---
helped pt change brief and into hospital gown
[2020-11-17] MEDS: ONDANSETRON 4 MG/2 ML INJ IV (02:20)
[2020-11-17 02:27] VITALS: BP 224/100; PULSE 45; RESP 18; TEMP 36.7; O2SAT 94
--- NOTE | 2020-11-17 02:28 | PC.NURSE ---
Pt picked up by [facility] for transfer to [facility]; report given to Rosie at [facility]. Pts daughter left to go to [facility] with patient. Zofran given prior to transfer.
== END 2020-11-17 02:25 | disposition short-term general hospital (02) ==
PROVIDERS: Emergency Provider Emergency Medicine; Family Provider Family Medicine; PCP Family Medicine; Referring Provider Internal Medicine Nephrology
DX: K85.90 Acute pancreatitis without necrosis or infection, unspecified (principal); I10 Essential (primary) hypertension; K29.80 Duodenitis without bleeding; J90 Pleural effusion, not elsewhere classified; Z99.2 Dependence on renal dialysis; N18.9 Chronic kidney disease, unspecified; Z20.822 Contact with and (suspected) exposure to COVID-19
CPT/HCPCS: 36415; 74176; 80053; 81003; 81015; 82550; 83605; 83690; 83735; 84100; 84145; 84484; 84550; 85025; 87635; 93005; 93010; 96374; 96376; 99284; 99285; C9803; J2405

== ENCOUNTER → 2020-11-22 14:44 | Outpatient (CLI) | payer MEDICARE, OTHER, SELFPAY | PROVIDERS: Family Provider Family Medicine; PCP Family Medicine; Referring Provider Family Medicine; Visit Provider Family Medicine | DX: S61.302A Unspecified open wound of right middle finger with damage to nail, initial encounter (principal); M34.1 CR(E)ST syndrome; M86.641 Other chronic osteomyelitis, right hand; R60.0 Localized edema; Z99.2 Dependence on renal dialysis; E46 Unspecified protein-calorie malnutrition; B95.61 Methicillin susceptible Staphylococcus aureus infection as the cause of diseases classified elsewhere; Z79.2 Long term (current) use of antibiotics | CPT/HCPCS: 99212; 99214 ==

== ENCOUNTER → 2020-11-29 11:06 | Outpatient (CLI) | payer MEDICARE, OTHER, SELFPAY | PROVIDERS: Family Provider Family Medicine; PCP Family Medicine; Referring Provider Family Medicine; Visit Provider Family Medicine | DX: S61.202A Unspecified open wound of right middle finger without damage to nail, initial encounter (principal); Z48.01 Encounter for change or removal of surgical wound dressing | CPT/HCPCS: 99212 ==

== ENCOUNTER → 2020-12-06 15:50 | Outpatient (CLI) | payer MEDICARE, OTHER, SELFPAY | PROVIDERS: Family Provider Family Medicine; PCP Family Medicine; Referring Provider Family Medicine; Visit Provider Family Medicine | DX: S61.302A Unspecified open wound of right middle finger with damage to nail, initial encounter (principal); M34.1 CR(E)ST syndrome; I73.00 Raynaud's syndrome without gangrene; R60.0 Localized edema; N18.6 End stage renal disease; Z99.2 Dependence on renal dialysis; Z48.01 Encounter for change or removal of surgical wound dressing | CPT/HCPCS: 99212; 99213 ==

== ENCOUNTER → 2020-12-10 13:02 | Outpatient (CLI) | payer MEDICARE, OTHER, SELFPAY ==
[2020-12-10] MEDS: COVID-19 VACC #2, MRNA(MOD) 100 MCG/0.5 ML VIAL IM (13:14)
== END ==
PROVIDERS: Family Provider Family Medicine; PCP Family Medicine; Visit Provider Internal Medicine
DX: Z23 Encounter for immunization (principal)
CPT/HCPCS: 0012A; 91301

== ENCOUNTER → 2020-12-13 15:42 | Outpatient (CLI) | payer MEDICARE, OTHER, SELFPAY | PROVIDERS: Family Provider Family Medicine; PCP Family Medicine; Referring Provider Family Medicine; Visit Provider Family Medicine | DX: T50.995A Adverse effect of other drugs, medicaments and biological substances, initial encounter (principal); M34.1 CR(E)ST syndrome; Z99.2 Dependence on renal dialysis; E46 Unspecified protein-calorie malnutrition; R11.0 Nausea | CPT/HCPCS: 99213; 99214 ==

== ENCOUNTER → 2021-01-26 13:51 | Outpatient (CLI) | payer MEDICARE, OTHER, SELFPAY ==
--- NOTE | 2021-01-26 | DI.RAD.S_ITS ---
PROCEDURE: XR RIBS RT MIN 3V W CXR 1V INDICATIONS: Rib lesion TECHNIQUE: 2 views of the right ribs were acquired, along with a single view chest. COMPARISON: [facility], CT, CT CHEST ABDOMEN PELVIS WITHOUT CONTRAST, 08/08/2020, 17:07. [facility], NM, NM BONE SCAN WHOLE BODY, 12/23/2020, 13:16. [facility], CR, XR CHEST 1 VIEW, 08/11/2020, 5:28. [facility], CT, CT ABDOMEN PELVIS WO CON, 11/16/2020, 23:01. FINDINGS: Surgical changes and devices: Right-sided central venous line with the tip at the right atrium. Bones and chest wall: No fractures or dislocations. No lesion identified in the region of focal increased uptake on recent nuclear medicine scan. Overlying soft tissues appear unremarkable. Lungs and pleura: Small right pleural effusion. No pneumothorax. Mild streaky opacity at the lung bases. Mediastinum: Mediastinal contours appear normal. Heart size is normal. IMPRESSION: 1. No lesion identified in the right ribs in the region of increased uptake on the recent nuclear medicine scan. -This could be further evaluated with CT of the chest. 2. No displaced right-sided fracture. 3. Small right pleural effusion. Suspect bibasilar atelectasis. Dictated by: Fritz Jaimes M.D. on 01/26/2021 at 16:58 Approved by: Fritz Jaimes M.D. on 01/26/2021 at 17:04
== END ==
PROVIDERS: Family Provider Family Medicine; PCP Family Medicine; Referring Provider Internal Medicine Nephrology; Visit Provider Internal Medicine Nephrology
DX: M89.9 Disorder of bone, unspecified (principal)
CPT/HCPCS: 71101

== ENCOUNTER 2021-02-09 13:00 | Outpatient (RCR) | payer MEDICARE, OTHER, SELFPAY ==
--- NOTE | 2020-12-08 13:55 | PT-OP ANOTE ---
Pt and daughter, Savita, arrive 5' after eval was supposed to start and so no check-in or paperwork done. They will stay and do paper work today and eval is rescheduled for 12/15. Pt has COVID shot on Sunday and was worried about getting there on time from PT and so cancelled that appointment.
--- NOTE | 2020-12-15 16:39 | PT.OIE ---
Current Diagnoses Other abnormalities of gait and mobility (12/15/20) Past Medical History (Last Updated 11/23/20 @ 17:34 by Todd Lanza DO) Acute kidney failure Anxiety about health Back stiffness Balance problem Cervical somatic dysfunction Chronic nausea Chronic neck pain CKD (chronic kidney disease) (Unknown) Constipation Cranial somatic dysfunction CREST syndrome (Unknown) GERD (gastroesophageal reflux disease) (Unknown) Hiatal hernia with gastroesophageal reflux disease and esophagitis Hyperkalemia Hyperlipemia (Unknown) Hypertension (Unknown) Localized swelling of left forearm Nausea with vomiting Osteopenia (~04/2016) Osteoporosis (~04/2016) Pain of left great toe Raynaud's disease (Unknown) Segmental and somatic dysfunction of abdomen and other regions Segmental and somatic dysfunction of abdomen and other regions Segmental and somatic dysfunction of pelvic region Segmental and somatic dysfunction of rib cage Segmental and somatic dysfunction of sacral region Segmental and somatic dysfunction of thoracic region Somatic dysfunction of right lower extremity Upper extremity somatic dysfunction Past Surgical History (Last Reviewed 11/17/20 @ 01:14 by Juan Francisco Ramirez DO) History of cataract removal with insertion of prosthetic lens History of rectal surgery Status post breast biopsy Status post hysterectomy Status post tonsillectomy and adenoidectomy Visit Care Team Role Provider Type Todd Lanza DO Attending Provider Physician Family Provider Primary Care Provider Referring Provider Specialty: [facility] Practice Address: [address] [place] [address], [facility] Email: Physical Therapy Initial Evaluation PT-OP-A Visit Information Start: 11/25/20 14:02 Freq: Status: Active Protocol: Document 12/15/20 13:46 MB (Rec: 12/15/20 14:10 MB [id number]) Out-Patient Physical Therapy Visit Information Visit Information Visit Type Initial Evaluation Visit Note Medicare Nina Pt's daughter, Savita, arrives with her Visit Start Time 13:46 Visit Stop Time 14:30 Total Visit Minutes 44 Visit Number 1 Evaluation Information Evaluation Date 12/15/20 Precautions Precautions Port right UE, dialysis on Tues and Sat, recent infection left 3rd finger PT-OP-B Current Condition Start: 11/25/20 14:02 Freq: Status: Active Protocol: Document 12/15/20 13:46 MB (Rec: 12/15/20 14:10 MB [id number]) Current Condition History of Current Condition Onset Date Long history of imbalance, worse since hospitalization in July Current Complaints Weakness, imbalance History of Current Condition In July, pt was hospitalized, had [place], cardiomyopathy, pulmonary edema, bowel issues and sepsis . She was ventilated and had dialysis. She was hospitalized twice in July. She later had pancreatitis and was hospitalized in October once for five days. She just got off an antibiotic and her gut is better. Pt did inpatient PT in [place] for 12 days and then had HHPT and OT in 10/17. Pt is concerned about her strength and balance and she would like to increase stamina . Last fall was in 06/15. She has a large scar over her right eyebrow from that fall. She had a near fall more recently and her daughter caught her. Her foot slid under a step. Daughter reports concern about conversation about Hospice that occurred at last PCP visit. She states that the conversation upset her and the patient was depressed the next day. She states that the patient's labs are improving with dialysis and pt states she does have trouble with her calcium levels. Savita, daughter, lives with patient and there are 4 steps and 2 rails to enter. She has a hurrycane, RW, rollator, shower chair, lift recliner and hospital bed. She is sleeping in a regular flat bed with handle. Savita is nearby for safety for bathing. She has suction handbars and removable shower head. Further PMH: back pain, right wrist peripheral vein blood clot and pt is on Plavix, bruises easily, pt is on dialysis 2x/week, OP, shingles , SOB, vision and hearing issues, scleroderma, Crest Syndrome. Socially, pt's sister with whom she lived, 08/10/20 when the pt was hospitalized. Prior Treatments and Tests Hospitalizations, PT, dialysis Treatment Goals Patient/Caregiver Goals To increase strength, balance and endurance PT-OP-C Subjective Start: 11/25/20 14:02 Freq: Status: Active Protocol: Document 12/15/20 13:46 MB (Rec: 12/15/20 14:10 MB [id number]) OP-PT Subjective Patient Comments Patient Comments See history of current condition OP-PT Pain Assessment Comments Pain Comments Pt reports pain all over but is not very specific. Her left finger isn't bothering her much and neither is the toe where she has gout, per her report PT-OP-D Balance Start: 11/25/20 14:02 Freq: Status: Active Protocol: Document 12/15/20 13:46 MB (Rec: 12/15/20 16:38 MB [id number]) OP-PT Balance Assessment Sitting Balance Static Sitting Balance Ability Good Dynamic Sitting Balance Ability Fair Sitting Balance Comments UE support for scooting in the chair Standing Balance Static Standing Balance Ability Fair Dynamic Standing Balance Ability Fair Device Used Hurrycane Standing Balance Comments Superv for static and dynamic standing balance today, see comments under gait for postural changes with standing . Further balance testing in future treatments. Khan Fall Scale Copyright Permission PT-OP-G Mobility & Gait Start: 11/25/20 14:02 Freq: Status: Active Protocol: Document 12/15/20 13:46 MB (Rec: 12/15/20 16:38 MB [id number]) OP Gait Assessment Gait Gait Assistance Required: Standby Assistance Distance (Feet) 50 Able to Maintain Weight Bearing Status Yes During Gait Assistive Devices Assistive Device Straight Cane Orthotic/Prosthetic Devices or Brace: No Gait Deviations General Gait Pattern Decreased Stride Length, Decreased Feet Clearance, Flexed Trunk,Narrow Based Gait Factors Limiting Gait Function Factors Limiting Gait Function Decreased Activity Tolerance, Decreased Strength,Poor Balance Comments Gait Comments Pt gait trains with hurrycane in her right hand. She presents with functional left foot drop and left shoulder low with gait, narrow SAIDA and decreased power through RLE as well. Gait is slow and hesitant. PT-OP-J Posture/Palpation/Skin Start: 11/25/20 14:02 Freq: Status: Active Protocol: Document 12/15/20 13:46 MB (Rec: 12/15/20 16:38 MB [id number]) Posture Evaluation Comments Posture Comments Forward posture, rounded shoulders with left shoulder lower than the right, pt holding hurrycane in right hand PT-OP-K Range of Motion Start: 11/25/20 14:02 Freq: Status: Active Protocol: Document 12/15/20 13:46 MB (Rec: 12/15/20 16:38 MB [id number]) Shoulder Goniometric Range of Motion Shoulder ROM Limitations Comments B shoulder flexion to 90 deg: functional weakness with elevating both arms Wrist Goniometric Range of Motion ROM Limitations Comments All fingers have joint changes in setting of Crest syndrome, scleroderma and Raynaud's. Left 3rd finger with bandaid on DIP and she reports recent infection Hip Goniometric Range of Motion Hip ROM Limitations Comments Hip flexion in sitting is weak with active movement and pt has to work to keep left hip flexed to prepare for MMT: does not clear B thighs off chair Ankle and Foot Goniometric Range of Motion Ankle and Foot ROM Limitations Comments Functional foot drop on the left with gait Toe Range of Motion Toes ROM Limitations Comments Pt reports ingrown toe nail right great toe and gout with ecchymosis left first MTP joint PT-OP-M Strength Start: 11/25/20 14:02 Freq: Status: Active Protocol: Document 12/15/20 13:46 MB (Rec: 12/15/20 16:38 MB [id number]) Shoulder Strength Shoulder Manual Muscle Testing Left Flexion 3- Fair- Abduction (C5) 3 Fair Right Flexion 3- Fair- Abduction (C5) 3 Fair Elbow/Forearm Strength Elbow and Forearm Manual Muscle Testing Left Flexion (C6) 3+ Fair+ Extension (C7) 4 Good Right Flexion (C6) 3+ Fair+ Extension (C7) 4 Good Hip Strength Hip Manual Muscle Testing Left Flexion (L2) 2+ Poor+ Right Flexion (L2) 3- Fair- Knee Strength Knee Manual Muscle Testing Left Flexion (S2) 3- Fair- Extension (L3) 3- Fair- Right Flexion (S2) 3+ Fair+ Extension (L3) 3+ Fair+ Ankle/Foot Strength Ankle and Foot Manual Muscle Testing Left Dorsiflexion (L4) 3 Fair Right Dorsiflexion (L4) 3+ Fair+ Toe Strength Toe Manual Muscle Testing Left Great Toe Extension 2+ Poor+ Right Great Toe Extension 3- Fair- PT-OP-T Assessment and Plan Start: 11/25/20 14:02 Freq: Status: Active Protocol: Document 12/15/20 13:46 MB (Rec: 12/15/20 16:16 MB [id number]) Physical Therapy Assessment Rehab Potential Rehabilitation Potential Fair Evaluation Complexity Number of Personal Factors/Comorbidities 3 or More Number of Body Systems Impaired 4 or More Clinical Presentation at Evaluation Unstable Impairments Impairments Activity Tolerance,Balance, Edema,Functional Activities, Functional Mobility,Gait, Integument,Pain,Posture,ROM, Soft Tissue Mobility,Strength Other Impairments Personal factors include recent passing of her sister while pt herself was in the hospital, need for assistance from daughter for ADLs and transportation, post- intubation cognitive changes. Body systems affected include cardiopulmonary, integumentary , musculoskeletal, visceral and cognitive. She is currently receiving dialysis 2x/wk and she and daughter are hopeful that she may possibly be able to wean off in the future. Her clinical presentation is unstable to evolving. Other Concerns Fall Risk Yes Goals Five Shelter Goal (LTG) Pt will perform progressive HEP with superv including strengthening, balance, posture and gait exercises to improve strength, gait and safety by 02/14/21. LTG Duration 8 weeks Four General Counsel Goal (LTG) Pt will perform at least 8 reps sit to stand with or without UE support in 30 sec to reflect improved functional strength by 02/14/21. LTG Duration 8 weeks Three Shelter Goal (LTG) Pt will deny falls for 2 months to decrease risk of injury by 02/14/21. LTG Duration 8 weeks Two General Counsel Goal (LTG) Pt will gait train at least 1000 feet in 6 minutes with LRAD to improve community ambulation by 02/14/21. LTG Duration 8 weeks One General Counsel Goal (LTG) Pt will perform WNLs on a standardized balance test to decrease fall risk by 02/14/21. LTG Duration 8 weeks Assessment Summary Assessment Pt is a 80 y/o female presenting with functional left foot drop, impaired gait, balance and strength s/p hospitalization including cardiopulmonary compromise, intubation, sepsis, renal failure and dialysis. She has other co-morbidities of scleroderma and Raynaud's. She is currently receiving outpatient dialysis on Tuesdays and Saturdays. Pt's daughter, Savita, arrives to therapy with her and has moved in with patient. She is very supportive. Pt will benefit from PT to improve functional strength, balance, posture and gait. Her functional presentation is guarded given medical co-morbidities and pt and her daughter are very motivated to attend and participate with PT. Physical Therapy Plan Frequency and Duration Frequency of Treatment 2x/Week Duration of Treatment 8 weeks Plan of Care Start Date 12/15/20 Plan of Care End Date 02/14/21 Therapeutic Interventions Therapeutic Interventions Balance Training,Canalithic Repositioning,Coordination Training,Gait Training,Home Exercise Program,Manual Therapy,Neuromuscular Re- education,Patient/Caregiver Education,Self-Care/Home Management,Soft Tissue Mobilization,Therapeutic Activities,Therapeutic Exercises Modalities Hot Packs Next Visit Focus/Plan Next Note Type Treatment Note Next Visit Plan 6MWT with LRAD (rollator), ongoing monitoring of vitals before and after, consider a balance test like Tinetti or standing Romberg, may initiate Biodex
--- NOTE | 2020-12-17 14:32 | PT.OTN ---
Current Diagnoses Other abnormalities of gait and mobility (12/17/20) Physical Therapy Treatment Note PT-OP-A Visit Information Start: 11/25/20 14:02 Freq: Status: Active Protocol: Document 12/17/20 13:53 SP (Rec: 12/17/20 15:49 SP [id number]) Out-Patient Physical Therapy Visit Information Visit Information Visit Type Treatment Note Visit Note Medicare Nina Vitals post wallk: 152/59, HR 147, 88% on RA, 2 min rest: HR 66bpm, 93% SaO2, 132/58. Visit Start Time 13:52 Visit Stop Time 14:32 Total Visit Minutes 40 Visit Number 2 Number of STATION MECHANIC Visits 1 Evaluation Information Evaluation Date 12/15/20 Precautions Precautions Port right UE, dialysis on and Sun, recent infection left 3rd finger PT-OP-B Current Condition Start: 11/25/20 14:02 Freq: Status: Active Protocol: Document 12/15/20 13:46 MB (Rec: 12/15/20 14:10 MB [id number]) Current Condition History of Current Condition Onset Date Long history of imbalance, worse since hospitalization in July Current Complaints Weakness, imbalance History of Current Condition In July, pt was hospitalized, had [place], cardiomyopathy, pulmonary edema, bowel issues and sepsis . She was ventilated and had dialysis. She was hospitalized twice in July. She later had pancreatitis and was hospitalized in October once for five days. She just got off an antibiotic and her gut is better. Pt did inpatient PT in [place] for 12 days and then had HHPT and OT in 10/17. Pt is concerned about her strength and balance and she would like to increase stamina . Last fall was in 06/15. She has a large scar over her right eyebrow from that fall. She had a near fall more recently and her daughter caught her. Her foot slid under a step. Daughter reports concern about conversation about Hospice that occurred at last PCP visit. She states that the conversation upset her and the patient was depressed the next day. She states that the patient's labs are improving with dialysis and pt states she does have trouble with her calcium levels. Savita, daughter, lives with patient and there are 4 steps and 2 rails to enter. She has a hurrycane, RW, rollator, shower chair, lift recliner and hospital bed. She is sleeping in a regular flat bed with handle. Savita is nearby for safety for bathing. She has suction handbars and removable shower head. Further PMH: back pain, right wrist peripheral vein blood clot and pt is on Plavix, bruises easily, pt is on dialysis 2x/week, OP, shingles , SOB, vision and hearing issues, scleroderma, Crest Syndrome. Socially, pt's sister with whom she lived, 08/10/20 when the pt was hospitalized. Prior Treatments and Tests Hospitalizations, PT, dialysis Treatment Goals Patient/Caregiver Goals To increase strength, balance and endurance PT-OP-C Subjective Start: 11/25/20 14:02 Freq: Status: Active Protocol: Document 12/17/20 13:53 SP (Rec: 12/17/20 15:49 SP [id number]) OP-PT Subjective Patient Comments Patient Comments Pt stated doing ok today. Pt arrived using hurry cane. PT-OP-D Balance Start: 11/25/20 14:02 Freq: Status: Active Protocol: Document 12/15/20 13:46 MB (Rec: 12/15/20 16:38 MB [id number]) OP-PT Balance Assessment Sitting Balance Static Sitting Balance Ability Good Dynamic Sitting Balance Ability Fair Sitting Balance Comments UE support for scooting in the chair Standing Balance Static Standing Balance Ability Fair Dynamic Standing Balance Ability Fair Device Used Hurrycane Standing Balance Comments Superv for static and dynamic standing balance today, see comments under gait for postural changes with standing . Further balance testing in future treatments. Khan Fall Scale Copyright Permission PT-OP-G Mobility & Gait Start: 11/25/20 14:02 Freq: Status: Active Protocol: Document 12/15/20 13:46 MB (Rec: 12/15/20 16:38 MB [id number]) OP Gait Assessment Gait Gait Assistance Required: Standby Assistance Distance (Feet) 50 Able to Maintain Weight Bearing Status Yes During Gait Assistive Devices Assistive Device Straight Cane Orthotic/Prosthetic Devices or Brace: No Gait Deviations General Gait Pattern Decreased Stride Length, Decreased Feet Clearance, Flexed Trunk,Narrow Based Gait Factors Limiting Gait Function Factors Limiting Gait Function Decreased Activity Tolerance, Decreased Strength,Poor Balance Comments Gait Comments Pt gait trains with hurrycane in her right hand. She presents with functional left foot drop and left shoulder low with gait, narrow SAIDA and decreased power through RLE as well. Gait is slow and hesitant. PT-OP-J Posture/Palpation/Skin Start: 11/25/20 14:02 Freq: Status: Active Protocol: Document 12/15/20 13:46 MB (Rec: 12/15/20 16:38 MB [id number]) Posture Evaluation Comments Posture Comments Forward posture, rounded shoulders with left shoulder lower than the right, pt holding hurrycane in right hand PT-OP-K Range of Motion Start: 11/25/20 14:02 Freq: Status: Active Protocol: Document 12/15/20 13:46 MB (Rec: 12/15/20 16:38 MB [id number]) Shoulder Goniometric Range of Motion Shoulder ROM Limitations Comments B shoulder flexion to 90 deg: functional weakness with elevating both arms Wrist Goniometric Range of Motion ROM Limitations Comments All fingers have joint changes in setting of Crest syndrome, scleroderma and Raynaud's. Left 3rd finger with bandaid on DIP and she reports recent infection Hip Goniometric Range of Motion Hip ROM Limitations Comments Hip flexion in sitting is weak with active movement and pt has to work to keep left hip flexed to prepare for MMT: does not clear B thighs off chair Ankle and Foot Goniometric Range of Motion Ankle and Foot ROM Limitations Comments Functional foot drop on the left with gait Toe Range of Motion Toes ROM Limitations Comments Pt reports ingrown toe nail right great toe and gout with ecchymosis left first MTP joint PT-OP-M Strength Start: 11/25/20 14:02 Freq: Status: Active Protocol: Document 12/15/20 13:46 MB (Rec: 12/15/20 16:38 MB [id number]) Shoulder Strength Shoulder Manual Muscle Testing Left Flexion 3- Fair- Abduction (C5) 3 Fair Right Flexion 3- Fair- Abduction (C5) 3 Fair Elbow/Forearm Strength Elbow and Forearm Manual Muscle Testing Left Flexion (C6) 3+ Fair+ Extension (C7) 4 Good Right Flexion (C6) 3+ Fair+ Extension (C7) 4 Good Hip Strength Hip Manual Muscle Testing Left Flexion (L2) 2+ Poor+ Right Flexion (L2) 3- Fair- Knee Strength Knee Manual Muscle Testing Left Flexion (S2) 3- Fair- Extension (L3) 3- Fair- Right Flexion (S2) 3+ Fair+ Extension (L3) 3+ Fair+ Ankle/Foot Strength Ankle and Foot Manual Muscle Testing Left Dorsiflexion (L4) 3 Fair Right Dorsiflexion (L4) 3+ Fair+ Toe Strength Toe Manual Muscle Testing Left Great Toe Extension 2+ Poor+ Right Great Toe Extension 3- Fair- PT-OP-Q Treatments Start: 11/25/20 14:02 Freq: Status: Active Protocol: Document 12/17/20 13:53 SP (Rec: 12/17/20 15:49 SP [id number]) Therapeutic Exercises Standing Exercises band walk Resistance #1 TB loop Equipment Used //bar Reps/Minutes 10ft x2 laps Comments cued tall posture and glut/ quad facilitation Gait Training Gait Activity 6mwt Device Used hurry cane Level of Assistance SBA Surface level Distance/Duration 2 laps around clinic Comments 347 ft in 4 min before required stop due to increase breath rate and BLE weakness requiring sit. See vital assessment above post activity . Neuro Re-Education Treatment Balance Activities corner balance Details head turns w/ EO, EC Surface stable Equipment corner at back, chair front Comments WBOS, NBOS, stagger 1. head turn 2. EC -good WBOS and NBOS EC >30 sec -stable EC up to 30 sec before need contact chair little sway Tinneti Comments 14 PT-OP-T Assessment and Plan Start: 11/25/20 14:02 Freq: Status: Active Protocol: Document 12/17/20 13:53 SP (Rec: 12/17/20 15:49 SP [id number]) Physical Therapy Assessment Goals Five Prison Goal (LTG) Pt will perform progressive HEP with superv including strengthening, balance, posture and gait exercises to improve strength, gait and safety by 02/14/21. LTG Duration 8 weeks Four Weed Science Research Technician Goal (LTG) Pt will perform at least 8 reps sit to stand with or without UE support in 30 sec to reflect improved functional strength by 02/14/21. LTG Duration 8 weeks Three Prison Goal (LTG) Pt will deny falls for 2 months to decrease risk of injury by 02/14/21. LTG Duration 8 weeks Two Weed Science Research Technician Goal (LTG) Pt will gait train at least 1000 feet in 6 minutes with LRAD to improve community ambulation by 02/14/21. 12/17/20: pt states mainly uses her hurry cane for community mobility but if having an off day, has her rollator in the car if needed. LTG Duration 8 weeks One Prison Goal (LTG) Pt will perform WNLs on a standardized balance test to decrease fall risk by 02/14/21. : 6 MWT= 347 ft in 4 min using hurrycane Tinetti=[id number] Tinetti= LTG Duration 8 weeks Assessment Summary Assessment Pt had decreased endurance gait, completed 4 of 6 min walk test with noted increased breath rate and BLE tiring after 2 laps around clinic. Pt requested activities to do at home, did well with initiated band walk 2nd sec post glut and quad with improve posture. Pt state the exercises today were good, like did some work . Physical Therapy Plan Frequency and Duration Frequency of Treatment 2x/Week Duration of Treatment 8 weeks Plan of Care Start Date 12/15/20 Plan of Care End Date 02/14/21 Therapeutic Interventions Therapeutic Interventions Balance Training,Canalithic Repositioning,Coordination Training,Gait Training,Home Exercise Program,Manual Therapy,Neuromuscular Re- education,Patient/Caregiver Education,Self-Care/Home Management,Soft Tissue Mobilization,Therapeutic Activities,Therapeutic Exercises Modalities Hot Packs Next Visit Focus/Plan Next Note Type Treatment Note Next Visit Plan Assess response to further testing: tinetti, 6MWT, standing balance, band walk. Continue per PT POC: ongoing monitoring of vitals before and after, may initiate Biodex .
--- NOTE | 2020-12-22 14:30 | PT.OTN ---
Current Diagnoses Other abnormalities of gait and mobility (12/22/20) Physical Therapy Treatment Note PT-OP-A Visit Information Start: 11/25/20 14:02 Freq: Status: Active Protocol: Document 12/22/20 13:47 MB (Rec: 12/22/20 14:26 MB [id number]) Out-Patient Physical Therapy Visit Information Visit Information Visit Type Treatment Note Visit Note Medicare Regence Visit Start Time 13:47 Visit Stop Time 14:30 Total Visit Minutes 43 Visit Number 3 Number of PRINTER SLOTTER FEEDER Visits 0 Precautions Precautions Port right UE, dialysis on Tues and Sat, recent infection left 3rd finger PT-OP-B Current Condition Start: 11/25/20 14:02 Freq: Status: Active Protocol: Document 12/15/20 13:46 MB (Rec: 12/15/20 14:10 MB [id number]) Current Condition History of Current Condition Onset Date Long history of imbalance, worse since hospitalization in July Current Complaints Weakness, imbalance History of Current Condition In July, pt was hospitalized, had [place], cardiomyopathy, pulmonary edema, bowel issues and sepsis . She was ventilated and had dialysis. She was hospitalized twice in July. She later had pancreatitis and was hospitalized in October once for five days. She just got off an antibiotic and her gut is better. Pt did inpatient PT in [place] for 12 days and then had HHPT and OT in 10/17. Pt is concerned about her strength and balance and she would like to increase stamina . Last fall was in 06/15. She has a large scar over her right eyebrow from that fall. She had a near fall more recently and her daughter caught her. Her foot slid under a step. Daughter reports concern about conversation about Hospice that occurred at last PCP visit. She states that the conversation upset her and the patient was depressed the next day. She states that the patient's labs are improving with dialysis and pt states she does have trouble with her calcium levels. Savita, daughter, lives with patient and there are 4 steps and 2 rails to enter. She has a hurrycane, RW, rollator, shower chair, lift recliner and hospital bed. She is sleeping in a regular flat bed with handle. Savita is nearby for safety for bathing. She has suction handbars and removable shower head. Further PMH: back pain, right wrist peripheral vein blood clot and pt is on Plavix, bruises easily, pt is on dialysis 2x/week, OP, shingles , SOB, vision and hearing issues, scleroderma, Crest Syndrome. Socially, pt's sister with whom she lived, 08/10/20 when the pt was hospitalized. Prior Treatments and Tests Hospitalizations, PT, dialysis Treatment Goals Patient/Caregiver Goals To increase strength, balance and endurance PT-OP-C Subjective Start: 11/25/20 14:02 Freq: Status: Active Protocol: Document 12/22/20 13:47 MB (Rec: 12/22/20 14:26 MB [id number]) OP-PT Subjective Patient Comments Patient Comments Pt states that she is not very peppy today. They had a family yesterday and she did not sleep well. She also had dialysis last night. PT-OP-D Balance Start: 11/25/20 14:02 Freq: Status: Active Protocol: Document 12/15/20 13:46 MB (Rec: 12/15/20 16:38 MB [id number]) OP-PT Balance Assessment Sitting Balance Static Sitting Balance Ability Good Dynamic Sitting Balance Ability Fair Sitting Balance Comments UE support for scooting in the chair Standing Balance Static Standing Balance Ability Fair Dynamic Standing Balance Ability Fair Device Used Hurrycane Standing Balance Comments Superv for static and dynamic standing balance today, see comments under gait for postural changes with standing . Further balance testing in future treatments. Khan Fall Scale Copyright Permission PT-OP-G Mobility & Gait Start: 11/25/20 14:02 Freq: Status: Active Protocol: Document 12/15/20 13:46 MB (Rec: 12/15/20 16:38 MB [id number]) OP Gait Assessment Gait Gait Assistance Required: Standby Assistance Distance (Feet) 50 Able to Maintain Weight Bearing Status Yes During Gait Assistive Devices Assistive Device Straight Cane Orthotic/Prosthetic Devices or Brace: No Gait Deviations General Gait Pattern Decreased Stride Length, Decreased Feet Clearance, Flexed Trunk,Narrow Based Gait Factors Limiting Gait Function Factors Limiting Gait Function Decreased Activity Tolerance, Decreased Strength,Poor Balance Comments Gait Comments Pt gait trains with hurrycane in her right hand. She presents with functional left foot drop and left shoulder low with gait, narrow SAIDA and decreased power through RLE as well. Gait is slow and hesitant. PT-OP-J Posture/Palpation/Skin Start: 11/25/20 14:02 Freq: Status: Active Protocol: Document 12/15/20 13:46 MB (Rec: 12/15/20 16:38 MB [id number]) Posture Evaluation Comments Posture Comments Forward posture, rounded shoulders with left shoulder lower than the right, pt holding hurrycane in right hand PT-OP-K Range of Motion Start: 11/25/20 14:02 Freq: Status: Active Protocol: Document 12/15/20 13:46 MB (Rec: 12/15/20 16:38 MB [id number]) Shoulder Goniometric Range of Motion Shoulder ROM Limitations Comments B shoulder flexion to 90 deg: functional weakness with elevating both arms Wrist Goniometric Range of Motion ROM Limitations Comments All fingers have joint changes in setting of Crest syndrome, scleroderma and Raynaud's. Left 3rd finger with bandaid on DIP and she reports recent infection Hip Goniometric Range of Motion Hip ROM Limitations Comments Hip flexion in sitting is weak with active movement and pt has to work to keep left hip flexed to prepare for MMT: does not clear B thighs off chair Ankle and Foot Goniometric Range of Motion Ankle and Foot ROM Limitations Comments Functional foot drop on the left with gait Toe Range of Motion Toes ROM Limitations Comments Pt reports ingrown toe nail right great toe and gout with ecchymosis left first MTP joint PT-OP-M Strength Start: 11/25/20 14:02 Freq: Status: Active Protocol: Document 12/15/20 13:46 MB (Rec: 12/15/20 16:38 MB [id number]) Shoulder Strength Shoulder Manual Muscle Testing Left Flexion 3- Fair- Abduction (C5) 3 Fair Right Flexion 3- Fair- Abduction (C5) 3 Fair Elbow/Forearm Strength Elbow and Forearm Manual Muscle Testing Left Flexion (C6) 3+ Fair+ Extension (C7) 4 Good Right Flexion (C6) 3+ Fair+ Extension (C7) 4 Good Hip Strength Hip Manual Muscle Testing Left Flexion (L2) 2+ Poor+ Right Flexion (L2) 3- Fair- Knee Strength Knee Manual Muscle Testing Left Flexion (S2) 3- Fair- Extension (L3) 3- Fair- Right Flexion (S2) 3+ Fair+ Extension (L3) 3+ Fair+ Ankle/Foot Strength Ankle and Foot Manual Muscle Testing Left Dorsiflexion (L4) 3 Fair Right Dorsiflexion (L4) 3+ Fair+ Toe Strength Toe Manual Muscle Testing Left Great Toe Extension 2+ Poor+ Right Great Toe Extension 3- Fair- PT-OP-Q Treatments Start: 11/25/20 14:02 Freq: Status: Active Protocol: Document 12/22/20 13:47 MB (Rec: 12/22/20 14:26 MB [id number]) Cardio Equipment Recumbent Elliptical (Biodex) Duration (Minutes) 10 Resistance 2 Seat Position 9 Other LUE BP and HR after: 124/65, 84 Therapeutic Exercises Sitting Exercises Reviewed use of incentive spirometer Comments Pt has incentive spirometer at home, ed 5 reps every hour Hip abduction/clam with band Side bilateral Comments 10 reps slowly, glute set first QL stretch Side bilateral Comments Reaching up overhead with same side arm, hold 10 sec, 2 reps each side Thoracic rotation Side bilateral Comments Hold end-range and performing breathing for rib mob, 2 reps each side hold Hip rotator stretch Side bilateral Comments 20 sec hold, 2 reps B Hamstring stretch Side bilateral Comments 2 reps with 20 sec hold, toes up PT-OP-T Assessment and Plan Start: 11/25/20 14:02 Freq: Status: Active Protocol: Document 12/22/20 13:47 MB (Rec: 12/22/20 14:26 MB [id number]) Physical Therapy Assessment Rehab Potential Rehabilitation Potential Fair Evaluation Complexity Number of Personal Factors/Comorbidities 3 or More Number of Body Systems Impaired 4 or More Clinical Presentation at Evaluation Unstable Impairments Impairments Activity Tolerance,Balance, Edema,Functional Activities, Functional Mobility,Gait, Integument,Pain,Posture,ROM, Soft Tissue Mobility,Strength Other Impairments Personal factors include recent passing of her sister while pt herself was in the hospital, need for assistance from daughter for ADLs and transportation, post- intubation cognitive changes. Body systems affected include cardiopulmonary, integumentary , musculoskeletal, visceral and cognitive. She is currently receiving dialysis 2x/wk and she and daughter are hopeful that she may possibly be able to wean off in the future. Her clinical presentation is unstable to evolving. Other Concerns Fall Risk Yes Goals Five Motor Coach Tour Operator Goal (LTG) Pt will perform progressive HEP with superv including strengthening, balance, posture and gait exercises to improve strength, gait and safety by 02/14/21. LTG Duration 8 weeks Four Motor Coach Tour Operator Goal (LTG) Pt will perform at least 8 reps sit to stand with or without UE support in 30 sec to reflect improved functional strength by 02/14/21. LTG Duration 8 weeks Three [facility] Goal (LTG) Pt will deny falls for 2 months to decrease risk of injury by 02/14/21. LTG Duration 8 weeks Two [facility] Goal (LTG) Pt will gait train at least 1000 feet in 6 minutes with LRAD to improve community ambulation by 02/14/21. LTG Duration 8 weeks One Motor Coach Tour Operator Goal (LTG) Pt will perform WNLs on a standardized balance test to decrease fall risk by 02/14/21. LTG Duration 8 weeks Assessment Summary Assessment Initiated sitting exercises today to help with flexibility and for ability to do safely and I at home. Do want to progress sit to stands for home and standing exercises for hips with bands (side and backward walking) soon. Pt's posture is very forward and may consider teaching breathing exercises including diaphragm breathing and abdominal drawing in in hook lying with LE and head and neck support. Physical Therapy Plan Frequency and Duration Frequency of Treatment 2x/Week Duration of Treatment 8 weeks Plan of Care Start Date 12/15/20 Plan of Care End Date 02/14/21 Therapeutic Interventions Therapeutic Interventions Balance Training,Canalithic Repositioning,Coordination Training,Gait Training,Home Exercise Program,Manual Therapy,Neuromuscular Re- education,Patient/Caregiver Education,Self-Care/Home Management,Soft Tissue Mobilization,Therapeutic Activities,Therapeutic Exercises Modalities Hot Packs Next Visit Focus/Plan Next Note Type Treatment Note Next Visit Plan Further balance and gait re- tests, sit to stands for HEP, ankle eversion with DF with band for HEP, strengthening progression in standing. Consider sitting or standing scapular retraction with band to work on upright posture.
--- NOTE | 2020-12-24 14:33 | PT.OTN ---
Current Diagnoses Other abnormalities of gait and mobility (12/24/20) Physical Therapy Treatment Note PT-OP-A Visit Information Start: 11/25/20 14:02 Freq: Status: Active Protocol: Document 12/24/20 13:48 MB (Rec: 12/24/20 14:32 MB [id number]) Out-Patient Physical Therapy Visit Information Visit Information Visit Type Treatment Note Visit Note Medicare Regence Visit Start Time 13:48 Visit Stop Time 14:28 Total Visit Minutes 40 Visit Number 4 Precautions Precautions Port right UE, dialysis on and Sat, recent infection left 3rd finger PT-OP-B Current Condition Start: 11/25/20 14:02 Freq: Status: Active Protocol: Document 12/15/20 13:46 MB (Rec: 12/15/20 14:10 MB [id number]) Current Condition History of Current Condition Onset Date Long history of imbalance, worse since hospitalization in July Current Complaints Weakness, imbalance History of Current Condition In July, pt was hospitalized, had [place], cardiomyopathy, pulmonary edema, bowel issues and sepsis . She was ventilated and had dialysis. She was hospitalized twice in July. She later had pancreatitis and was hospitalized in October once for five days. She just got off an antibiotic and her gut is better. Pt did inpatient PT in [place] for 12 days and then had HHPT and OT in 10/17. Pt is concerned about her strength and balance and she would like to increase stamina . Last fall was in 06/15. She has a large scar over her right eyebrow from that fall. She had a near fall more recently and her daughter caught her. Her foot slid under a step. Daughter reports concern about conversation about Hospice that occurred at last PCP visit. She states that the conversation upset her and the patient was depressed the next day. She states that the patient's labs are improving with dialysis and pt states she does have trouble with her calcium levels. Savita, daughter, lives with patient and there are 4 steps and 2 rails to enter. She has a hurrycane, RW, rollator, shower chair, lift recliner and hospital bed. She is sleeping in a regular flat bed with handle. Savita is nearby for safety for bathing. She has suction handbars and removable shower head. Further PMH: back pain, right wrist peripheral vein blood clot and pt is on Plavix, bruises easily, pt is on dialysis 2x/week, OP, shingles , SOB, vision and hearing issues, scleroderma, Crest Syndrome. Socially, pt's sister with whom she lived, 08/10/20 when the pt was hospitalized. Prior Treatments and Tests Hospitalizations, PT, dialysis Treatment Goals Patient/Caregiver Goals To increase strength, balance and endurance PT-OP-C Subjective Start: 11/25/20 14:02 Freq: Status: Active Protocol: Document 12/24/20 13:48 MB (Rec: 12/24/20 14:32 MB [id number]) OP-PT Subjective Patient Comments Patient Comments Pt states that she is not as peppy as she would like to be. She states that she had her bone scan yesterday in [facility]. She has dialysis at 1600 tomorrow. PT-OP-D Balance Start: 11/25/20 14:02 Freq: Status: Active Protocol: Document 12/15/20 13:46 MB (Rec: 12/15/20 16:38 MB [id number]) OP-PT Balance Assessment Sitting Balance Static Sitting Balance Ability Good Dynamic Sitting Balance Ability Fair Sitting Balance Comments UE support for scooting in the chair Standing Balance Static Standing Balance Ability Fair Dynamic Standing Balance Ability Fair Device Used Hurrycane Standing Balance Comments Superv for static and dynamic standing balance today, see comments under gait for postural changes with standing . Further balance testing in future treatments. Khan Fall Scale Copyright Permission PT-OP-G Mobility & Gait Start: 11/25/20 14:02 Freq: Status: Active Protocol: Document 12/15/20 13:46 MB (Rec: 12/15/20 16:38 MB [id number]) OP Gait Assessment Gait Gait Assistance Required: Standby Assistance Distance (Feet) 50 Able to Maintain Weight Bearing Status Yes During Gait Assistive Devices Assistive Device Straight Cane Orthotic/Prosthetic Devices or Brace: No Gait Deviations General Gait Pattern Decreased Stride Length, Decreased Feet Clearance, Flexed Trunk,Narrow Based Gait Factors Limiting Gait Function Factors Limiting Gait Function Decreased Activity Tolerance, Decreased Strength,Poor Balance Comments Gait Comments Pt gait trains with hurrycane in her right hand. She presents with functional left foot drop and left shoulder low with gait, narrow SAIDA and decreased power through RLE as well. Gait is slow and hesitant. PT-OP-J Posture/Palpation/Skin Start: 11/25/20 14:02 Freq: Status: Active Protocol: Document 12/15/20 13:46 MB (Rec: 12/15/20 16:38 MB [id number]) Posture Evaluation Comments Posture Comments Forward posture, rounded shoulders with left shoulder lower than the right, pt holding hurrycane in right hand PT-OP-K Range of Motion Start: 11/25/20 14:02 Freq: Status: Active Protocol: Document 12/15/20 13:46 MB (Rec: 12/15/20 16:38 MB [id number]) Shoulder Goniometric Range of Motion Shoulder ROM Limitations Comments B shoulder flexion to 90 deg: functional weakness with elevating both arms Wrist Goniometric Range of Motion ROM Limitations Comments All fingers have joint changes in setting of Crest syndrome, scleroderma and Raynaud's. Left 3rd finger with bandaid on DIP and she reports recent infection Hip Goniometric Range of Motion Hip ROM Limitations Comments Hip flexion in sitting is weak with active movement and pt has to work to keep left hip flexed to prepare for MMT: does not clear B thighs off chair Ankle and Foot Goniometric Range of Motion Ankle and Foot ROM Limitations Comments Functional foot drop on the left with gait Toe Range of Motion Toes ROM Limitations Comments Pt reports ingrown toe nail right great toe and gout with ecchymosis left first MTP joint PT-OP-M Strength Start: 11/25/20 14:02 Freq: Status: Active Protocol: Document 12/15/20 13:46 MB (Rec: 12/15/20 16:38 MB [id number]) Shoulder Strength Shoulder Manual Muscle Testing Left Flexion 3- Fair- Abduction (C5) 3 Fair Right Flexion 3- Fair- Abduction (C5) 3 Fair Elbow/Forearm Strength Elbow and Forearm Manual Muscle Testing Left Flexion (C6) 3+ Fair+ Extension (C7) 4 Good Right Flexion (C6) 3+ Fair+ Extension (C7) 4 Good Hip Strength Hip Manual Muscle Testing Left Flexion (L2) 2+ Poor+ Right Flexion (L2) 3- Fair- Knee Strength Knee Manual Muscle Testing Left Flexion (S2) 3- Fair- Extension (L3) 3- Fair- Right Flexion (S2) 3+ Fair+ Extension (L3) 3+ Fair+ Ankle/Foot Strength Ankle and Foot Manual Muscle Testing Left Dorsiflexion (L4) 3 Fair Right Dorsiflexion (L4) 3+ Fair+ Toe Strength Toe Manual Muscle Testing Left Great Toe Extension 2+ Poor+ Right Great Toe Extension 3- Fair- PT-OP-Q Treatments Start: 11/25/20 14:02 Freq: Status: Active Protocol: Document 12/24/20 13:48 MB (Rec: 12/24/20 14:32 MB [id number]) Cardio Equipment Recumbent Elliptical (Biodex) Duration (Minutes) 7 Resistance 1 Seat Position 9 Other Legs only Therapeutic Exercises Sitting Exercises LAQ with band Side bilateral Equipment Used Level 1 band Comments 10 reps slowly, alternating Eversion and DF with theraband Side bilateral Comments Level 1 band and multiple efforts and pt cannot perform Sit to stands Comments 5 reps in 30 sec; 10 reps then rest Hip abduction/clam with band Side bilateral Equipment Used Level 1 band Comments 10 reps, cues to squeeze glutes and move slowly Gait Training Gait Activity 6mwt Comments Pt can only gait train 159 feet, which requires 4' for attempted 6MWT. Her gait is step-to, wide, imbalanced and occ jerky movement. She carries hurrycane in right hand and then in left hand and she cannot walk well/ coordinate cane well with leg with cane in left hand. She requires CGA for gait. 1 Comments Several gait trials throughout PT treatment and pt requires CGA to superv to gait train with her hurrycane. PT-OP-T Assessment and Plan Start: 11/25/20 14:02 Freq: Status: Active Protocol: Document 12/24/20 13:48 MB (Rec: 12/24/20 14:32 MB [id number]) Physical Therapy Assessment Rehab Potential Rehabilitation Potential Fair Evaluation Complexity Number of Personal Factors/Comorbidities 3 or More Number of Body Systems Impaired 4 or More Clinical Presentation at Evaluation Unstable Impairments Impairments Activity Tolerance,Balance, Edema,Functional Activities, Functional Mobility,Gait, Integument,Pain,Posture,ROM, Soft Tissue Mobility,Strength Other Impairments Personal factors include recent passing of her sister while pt herself was in the hospital, need for assistance from daughter for ADLs and transportation, post- intubation cognitive changes. Body systems affected include cardiopulmonary, integumentary , musculoskeletal, visceral and cognitive. She is currently receiving dialysis 2x/wk and she and daughter are hopeful that she may possibly be able to wean off in the future. Her clinical presentation is unstable to evolving. Other Concerns Fall Risk Yes Goals Five Branch Banker Goal (LTG) Pt will perform progressive HEP with superv including strengthening, balance, posture and gait exercises to improve strength, gait and safety by 02/14/21. LTG Duration 8 weeks Four [employer] Goal (LTG) Pt will perform at least 8 reps sit to stand with or without UE support in 30 sec to reflect improved functional strength by 02/14/21. LTG Duration 8 weeks Three Branch Banker Goal (LTG) Pt will deny falls for 2 months to decrease risk of injury by 02/14/21. LTG Duration 8 weeks Two Jail Goal (LTG) Pt will gait train at least 1000 feet in 6 minutes with LRAD to improve community ambulation by 02/14/21. LTG Duration 8 weeks One Branch Banker Goal (LTG) Pt will perform WNLs on a standardized balance test to decrease fall risk by 02/14/21. LTG Duration 8 weeks Assessment Summary Assessment Pt presents with quick fatigue with gait and impaired gait pattern. Did progress strengthening exercises. Con't PT progression as pt tolerates. Her medical status is a limiting factor: many medical issues, renal failure requiring dialysis, weakness, limited gait tolerance. Physical Therapy Plan Frequency and Duration Frequency of Treatment 2x/Week Duration of Treatment 8 weeks Plan of Care Start Date 12/15/20 Plan of Care End Date 02/14/21 Therapeutic Interventions Therapeutic Interventions Balance Training,Canalithic Repositioning,Coordination Training,Gait Training,Home Exercise Program,Manual Therapy,Neuromuscular Re- education,Patient/Caregiver Education,Self-Care/Home Management,Soft Tissue Mobilization,Therapeutic Activities,Therapeutic Exercises Modalities Hot Packs Next Visit Focus/Plan Next Note Type Treatment Note Next Visit Plan Further balance and gait activities, consider scapular retraction and shoulder ER for postural exercises
--- NOTE | 2020-12-29 14:43 | PT.OTN ---
Current Diagnoses Other abnormalities of gait and mobility (12/29/20) Physical Therapy Treatment Note PT-OP-A Visit Information Start: 11/25/20 14:02 Freq: Status: Active Protocol: Document 12/29/20 13:47 MB (Rec: 12/29/20 14:24 MB [id number]) Out-Patient Physical Therapy Visit Information Visit Information Visit Type Treatment Note Visit Note Medicare Regence Visit Start Time 13:47 Visit Stop Time 14:30 Total Visit Minutes 43 Visit Number 5 Precautions Precautions Port right UE, dialysis on and Sun, recent infection left 3rd finger 12/29/20: Pt states that she was put on heart monitor for 10 days starting yesterday: EF 30 % in July 2021, EF 53% in October 2020 and reports of a- fib found in October 2020. She denies light-headedness and passing out. Today, pt does state that she is [employer] and this may contribute to treatments received medically PT-OP-B Current Condition Start: 11/25/20 14:02 Freq: Status: Active Protocol: Document 12/15/20 13:46 MB (Rec: 12/15/20 14:10 MB [id number]) Current Condition History of Current Condition Onset Date Long history of imbalance, worse since hospitalization in July Current Complaints Weakness, imbalance History of Current Condition In July, pt was hospitalized, had [place], cardiomyopathy, pulmonary edema, bowel issues and sepsis . She was ventilated and had dialysis. She was hospitalized twice in July. She later had pancreatitis and was hospitalized in October once for five days. She just got off an antibiotic and her gut is better. Pt did inpatient PT in [place] for 12 days and then had HHPT and OT in 10/17. Pt is concerned about her strength and balance and she would like to increase stamina . Last fall was in 06/15. She has a large scar over her right eyebrow from that fall. She had a near fall more recently and her daughter caught her. Her foot slid under a step. Daughter reports concern about conversation about Hospice that occurred at last PCP visit. She states that the conversation upset her and the patient was depressed the next day. She states that the patient's labs are improving with dialysis and pt states she does have trouble with her calcium levels. Savita, daughter, lives with patient and there are 4 steps and 2 rails to enter. She has a hurrycane, RW, rollator, shower chair, lift recliner and hospital bed. She is sleeping in a regular flat bed with handle. Savita is nearby for safety for bathing. She has suction handbars and removable shower head. Further PMH: back pain, right wrist peripheral vein blood clot and pt is on Plavix, bruises easily, pt is on dialysis 2x/week, OP, shingles , SOB, vision and hearing issues, scleroderma, Crest Syndrome. Socially, pt's sister with whom she lived, 08/10/20 when the pt was hospitalized. Prior Treatments and Tests Hospitalizations, PT, dialysis Treatment Goals Patient/Caregiver Goals To increase strength, balance and endurance PT-OP-C Subjective Start: 11/25/20 14:02 Freq: Status: Active Protocol: Document 12/29/20 13:47 MB (Rec: 12/29/20 14:24 MB [id number]) OP-PT Subjective Patient Comments Patient Comments Pt states that she felt really good when her alcoholic counselor told her yesterday that her EF is improving. She was put on a heart monitor for 10 days. She states that her library media assistant told her yesterday that she might have to be on dialysis long-term. Her creatinine has not been dropping as he would have hoped (less than 3). She was diagnosed as ESRD. He is not favoring a fistula in the forearm d/t Raynauld's and poor circulation in her hands. He is suggesting peritoneal dialysis which would be nightly at home. PT-OP-D Balance Start: 11/25/20 14:02 Freq: Status: Active Protocol: Document 12/15/20 13:46 MB (Rec: 12/15/20 16:38 MB [id number]) OP-PT Balance Assessment Sitting Balance Static Sitting Balance Ability Good Dynamic Sitting Balance Ability Fair Sitting Balance Comments UE support for scooting in the chair Standing Balance Static Standing Balance Ability Fair Dynamic Standing Balance Ability Fair Device Used Hurrycane Standing Balance Comments Superv for static and dynamic standing balance today, see comments under gait for postural changes with standing . Further balance testing in future treatments. Khan Fall Scale Copyright Permission PT-OP-G Mobility & Gait Start: 11/25/20 14:02 Freq: Status: Active Protocol: Document 12/15/20 13:46 MB (Rec: 12/15/20 16:38 MB [id number]) OP Gait Assessment Gait Gait Assistance Required: Standby Assistance Distance (Feet) 50 Able to Maintain Weight Bearing Status Yes During Gait Assistive Devices Assistive Device Straight Cane Orthotic/Prosthetic Devices or Brace: No Gait Deviations General Gait Pattern Decreased Stride Length, Decreased Feet Clearance, Flexed Trunk,Narrow Based Gait Factors Limiting Gait Function Factors Limiting Gait Function Decreased Activity Tolerance, Decreased Strength,Poor Balance Comments Gait Comments Pt gait trains with hurrycane in her right hand. She presents with functional left foot drop and left shoulder low with gait, narrow SAIDA and decreased power through RLE as well. Gait is slow and hesitant. PT-OP-J Posture/Palpation/Skin Start: 11/25/20 14:02 Freq: Status: Active Protocol: Document 12/15/20 13:46 MB (Rec: 12/15/20 16:38 MB [id number]) Posture Evaluation Comments Posture Comments Forward posture, rounded shoulders with left shoulder lower than the right, pt holding hurrycane in right hand PT-OP-K Range of Motion Start: 11/25/20 14:02 Freq: Status: Active Protocol: Document 12/15/20 13:46 MB (Rec: 12/15/20 16:38 MB [id number]) Shoulder Goniometric Range of Motion Shoulder ROM Limitations Comments B shoulder flexion to 90 deg: functional weakness with elevating both arms Wrist Goniometric Range of Motion ROM Limitations Comments All fingers have joint changes in setting of Crest syndrome, scleroderma and Raynaud's. Left 3rd finger with bandaid on DIP and she reports recent infection Hip Goniometric Range of Motion Hip ROM Limitations Comments Hip flexion in sitting is weak with active movement and pt has to work to keep left hip flexed to prepare for MMT: does not clear B thighs off chair Ankle and Foot Goniometric Range of Motion Ankle and Foot ROM Limitations Comments Functional foot drop on the left with gait Toe Range of Motion Toes ROM Limitations Comments Pt reports ingrown toe nail right great toe and gout with ecchymosis left first MTP joint PT-OP-M Strength Start: 11/25/20 14:02 Freq: Status: Active Protocol: Document 12/15/20 13:46 MB (Rec: 12/15/20 16:38 MB [id number]) Shoulder Strength Shoulder Manual Muscle Testing Left Flexion 3- Fair- Abduction (C5) 3 Fair Right Flexion 3- Fair- Abduction (C5) 3 Fair Elbow/Forearm Strength Elbow and Forearm Manual Muscle Testing Left Flexion (C6) 3+ Fair+ Extension (C7) 4 Good Right Flexion (C6) 3+ Fair+ Extension (C7) 4 Good Hip Strength Hip Manual Muscle Testing Left Flexion (L2) 2+ Poor+ Right Flexion (L2) 3- Fair- Knee Strength Knee Manual Muscle Testing Left Flexion (S2) 3- Fair- Extension (L3) 3- Fair- Right Flexion (S2) 3+ Fair+ Extension (L3) 3+ Fair+ Ankle/Foot Strength Ankle and Foot Manual Muscle Testing Left Dorsiflexion (L4) 3 Fair Right Dorsiflexion (L4) 3+ Fair+ Toe Strength Toe Manual Muscle Testing Left Great Toe Extension 2+ Poor+ Right Great Toe Extension 3- Fair- PT-OP-Q Treatments Start: 11/25/20 14:02 Freq: Status: Active Protocol: Document 12/29/20 13:47 MB (Rec: 12/29/20 14:24 MB [id number]) Cardio Equipment Recumbent Elliptical (Biodex) Duration (Minutes) 15 Resistance 1 Seat Position 10 Other Legs only Therapeutic Exercises Sitting Exercises Sit to stands Comments 7.5 reps in 30 sec; 15 reps in 1' today, UE use Gait Training Gait Activity Gait with RW Comments Mod I to superv to gait train with rolling walker from clinic gym out of hospital into parking lot and up to van . PT must put walker into van and assist with doors and cane . Her gait is slow and she occ has trouble getting walker over thresholds 6mwt Comments Pt is able to gait train 6 minutes with RW today with very slow gait and encouragement to con't. She gait trains 468'. O2 sats and HR before gait are: 91% and 69 BPM. Pulse ox does not read immediately after gait. She denies CP and light-headedness . She refuses water to drink. Self-Care/Home Management Treatment Education Caregiver Education After treatment, PT speaks with daughter about pt's improvement with therapy today and recommendations given to pt as listed below: focus on quality of life, walking with rolling walker, trying short walks with walker, increase sit to stand reps, assist with shopping, plan small trips when able Other Education Re-ed pt in use of incentive spirometer and she is using at home, ed pt to consider using RW for gait to allow increased gait distance and safety to decrease fall risk and encourage LE strength, endurance and lymphatic mobility and pt is agreeable to this today, ed to think about quality of life with decisions, especially as pt would like to do some trips to [place] and [place]. Pt is receptive to this PT-OP-T Assessment and Plan Start: 11/25/20 14:02 Freq: Status: Active Protocol: Document 12/29/20 13:47 MB (Rec: 12/29/20 14:24 MB [id number]) Physical Therapy Assessment Rehab Potential Rehabilitation Potential Fair Evaluation Complexity Number of Personal Factors/Comorbidities 3 or More Number of Body Systems Impaired 4 or More Clinical Presentation at Evaluation Unstable Impairments Impairments Activity Tolerance,Balance, Edema,Functional Activities, Functional Mobility,Gait, Integument,Pain,Posture,ROM, Soft Tissue Mobility,Strength Other Impairments Personal factors include recent passing of her sister while pt herself was in the hospital, need for assistance from daughter for ADLs and transportation, post- intubation cognitive changes. Body systems affected include cardiopulmonary, integumentary , musculoskeletal, visceral and cognitive. She is currently receiving dialysis 2x/wk and she and daughter are hopeful that she may possibly be able to wean off in the future. Her clinical presentation is unstable to evolving. Other Concerns Fall Risk Yes Goals Five Sap Bi Developer Goal (LTG) Pt will perform progressive HEP with superv including strengthening, balance, posture and gait exercises to improve strength, gait and safety by 02/14/21. LTG Duration 8 weeks Four Sap Bi Developer Goal (LTG) Pt will perform at least 8 reps sit to stand with or without UE support in 30 sec to reflect improved functional strength by 02/14/21. LTG Duration 8 weeks Three Sap Bi Developer Goal (LTG) Pt will deny falls for 2 months to decrease risk of injury by 02/14/21. LTG Duration 8 weeks Two Fdc Goal (LTG) Pt will gait train at least 1000 feet in 6 minutes with LRAD to improve community ambulation by 02/14/21. LTG Duration 8 weeks One Fdc Goal (LTG) Pt will perform WNLs on a standardized balance test to decrease fall risk by 02/14/21. LTG Duration 8 weeks Assessment Summary Assessment Pt con't with complicated medical presentation including new dx of ESRD and communication about a-fib and slightly improved EF today. Pt performs better with sit to stands and 6MWT with rollator today. Extensive education today. Will con't progressing pt in a slow manner. Physical Therapy Plan Frequency and Duration Frequency of Treatment 2x/Week Duration of Treatment 8 weeks Plan of Care Start Date 12/15/20 Plan of Care End Date 02/14/21 Therapeutic Interventions Therapeutic Interventions Balance Training,Canalithic Repositioning,Coordination Training,Gait Training,Home Exercise Program,Manual Therapy,Neuromuscular Re- education,Patient/Caregiver Education,Self-Care/Home Management,Soft Tissue Mobilization,Therapeutic Activities,Therapeutic Exercises Modalities Hot Packs Next Visit Focus/Plan Next Note Type Treatment Note Next Visit Plan Further balance and gait activities, consider other gentle strengthening exercises
--- NOTE | 2020-12-31 14:32 | PT.OTN ---
Current Diagnoses Other abnormalities of gait and mobility (12/31/20) Physical Therapy Treatment Note PT-OP-A Visit Information Start: 11/25/20 14:02 Freq: Status: Active Protocol: Document 12/31/20 13:47 MB (Rec: 12/31/20 14:29 MB [id number]) Out-Patient Physical Therapy Visit Information Visit Information Visit Type Treatment Note Visit Note Medicare Regence Visit Start Time 13:47 Visit Stop Time 14:30 Total Visit Minutes 43 Visit Number 6 Precautions Precautions Port right UE, dialysis on and Sun, recent infection left 3rd finger 12/29/20: Pt states that she was put on heart monitor for 10 days starting yesterday: EF 30 % in July 2021, EF 53% in October 2020 and reports of a- fib found in October 2020. She denies light-headedness and passing out. Today, pt does state that she is Jehovah Witness and this may contribute to treatments received medically PT-OP-B Current Condition Start: 11/25/20 14:02 Freq: Status: Active Protocol: Document 12/15/20 13:46 MB (Rec: 12/15/20 14:10 MB [id number]) Current Condition History of Current Condition Onset Date Long history of imbalance, worse since hospitalization in July Current Complaints Weakness, imbalance History of Current Condition In July, pt was hospitalized, had ND, cardiomyopathy, pulmonary edema, bowel issues and sepsis . She was ventilated and had dialysis. She was hospitalized twice in July. She later had pancreatitis and was hospitalized in October once for five days. She just got off an antibiotic and her gut is better. Pt did inpatient PT in [place] for 12 days and then had HHPT and OT in 10/17. Pt is concerned about her strength and balance and she would like to increase stamina . Last fall was in 06/15. She has a large scar over her right eyebrow from that fall. She had a near fall more recently and her daughter caught her. Her foot slid under a step. Daughter reports concern about conversation about Hospice that occurred at last PCP visit. She states that the conversation upset her and the patient was depressed the next day. She states that the patient's labs are improving with dialysis and pt states she does have trouble with her calcium levels. Savita, daughter, lives with patient and there are 4 steps and 2 rails to enter. She has a hurrycane, RW, rollator, shower chair, lift recliner and hospital bed. She is sleeping in a regular flat bed with handle. Savita is nearby for safety for bathing. She has suction handbars and removable shower head. Further PMH: back pain, right wrist peripheral vein blood clot and pt is on Plavix, bruises easily, pt is on dialysis 2x/week, OP, shingles , SOB, vision and hearing issues, scleroderma, Crest Syndrome. Socially, pt's sister with whom she lived, 08/10/20 when the pt was hospitalized. Prior Treatments and Tests Hospitalizations, PT, dialysis Treatment Goals Patient/Caregiver Goals To increase strength, balance and endurance PT-OP-C Subjective Start: 11/25/20 14:02 Freq: Status: Active Protocol: Document 12/31/20 13:47 MB (Rec: 12/31/20 14:29 MB [id number]) OP-PT Subjective Patient Comments Patient Comments Pt states that she did her sit to stand exercises yesterday. She had a busy day doing [employer] activities. She did not do 6MWT PT-OP-D Balance Start: 11/25/20 14:02 Freq: Status: Active Protocol: Document 12/15/20 13:46 MB (Rec: 12/15/20 16:38 MB [id number]) OP-PT Balance Assessment Sitting Balance Static Sitting Balance Ability Good Dynamic Sitting Balance Ability Fair Sitting Balance Comments UE support for scooting in the chair Standing Balance Static Standing Balance Ability Fair Dynamic Standing Balance Ability Fair Device Used Hurrycane Standing Balance Comments Superv for static and dynamic standing balance today, see comments under gait for postural changes with standing . Further balance testing in future treatments. Khan Fall Scale Copyright Permission PT-OP-G Mobility & Gait Start: 11/25/20 14:02 Freq: Status: Active Protocol: Document 12/15/20 13:46 MB (Rec: 12/15/20 16:38 MB [id number]) OP Gait Assessment Gait Gait Assistance Required: Standby Assistance Distance (Feet) 50 Able to Maintain Weight Bearing Status Yes During Gait Assistive Devices Assistive Device Straight Cane Orthotic/Prosthetic Devices or Brace: No Gait Deviations General Gait Pattern Decreased Stride Length, Decreased Feet Clearance, Flexed Trunk,Narrow Based Gait Factors Limiting Gait Function Factors Limiting Gait Function Decreased Activity Tolerance, Decreased Strength,Poor Balance Comments Gait Comments Pt gait trains with hurrycane in her right hand. She presents with functional left foot drop and left shoulder low with gait, narrow SAIDA and decreased power through RLE as well. Gait is slow and hesitant. PT-OP-J Posture/Palpation/Skin Start: 11/25/20 14:02 Freq: Status: Active Protocol: Document 12/15/20 13:46 MB (Rec: 12/15/20 16:38 MB [id number]) Posture Evaluation Comments Posture Comments Forward posture, rounded shoulders with left shoulder lower than the right, pt holding hurrycane in right hand PT-OP-K Range of Motion Start: 11/25/20 14:02 Freq: Status: Active Protocol: Document 12/15/20 13:46 MB (Rec: 12/15/20 16:38 MB [id number]) Shoulder Goniometric Range of Motion Shoulder ROM Limitations Comments B shoulder flexion to 90 deg: functional weakness with elevating both arms Wrist Goniometric Range of Motion ROM Limitations Comments All fingers have joint changes in setting of Crest syndrome, scleroderma and Raynaud's. Left 3rd finger with bandaid on DIP and she reports recent infection Hip Goniometric Range of Motion Hip ROM Limitations Comments Hip flexion in sitting is weak with active movement and pt has to work to keep left hip flexed to prepare for MMT: does not clear B thighs off chair Ankle and Foot Goniometric Range of Motion Ankle and Foot ROM Limitations Comments Functional foot drop on the left with gait Toe Range of Motion Toes ROM Limitations Comments Pt reports ingrown toe nail right great toe and gout with ecchymosis left first MTP joint PT-OP-M Strength Start: 11/25/20 14:02 Freq: Status: Active Protocol: Document 12/15/20 13:46 MB (Rec: 12/15/20 16:38 MB [id number]) Shoulder Strength Shoulder Manual Muscle Testing Left Flexion 3- Fair- Abduction (C5) 3 Fair Right Flexion 3- Fair- Abduction (C5) 3 Fair Elbow/Forearm Strength Elbow and Forearm Manual Muscle Testing Left Flexion (C6) 3+ Fair+ Extension (C7) 4 Good Right Flexion (C6) 3+ Fair+ Extension (C7) 4 Good Hip Strength Hip Manual Muscle Testing Left Flexion (L2) 2+ Poor+ Right Flexion (L2) 3- Fair- Knee Strength Knee Manual Muscle Testing Left Flexion (S2) 3- Fair- Extension (L3) 3- Fair- Right Flexion (S2) 3+ Fair+ Extension (L3) 3+ Fair+ Ankle/Foot Strength Ankle and Foot Manual Muscle Testing Left Dorsiflexion (L4) 3 Fair Right Dorsiflexion (L4) 3+ Fair+ Toe Strength Toe Manual Muscle Testing Left Great Toe Extension 2+ Poor+ Right Great Toe Extension 3- Fair- PT-OP-Q Treatments Start: 11/25/20 14:02 Freq: Status: Active Protocol: Document 12/31/20 13:47 MB (Rec: 12/31/20 14:29 MB [id number]) Cardio Equipment Recumbent Elliptical ([employer]) Duration (Minutes) 10 Resistance 3 Seat Position 8 Other UEs and LEs Therapeutic Exercises Sitting Exercises B shoulder flexion Side bilateral Comments 10 reps slowly, pt with trouble keeping arms extended LAQ with band Side bilateral Comments 5 reps slowly, APs, alternating, 10 APs, no band today Sit to stands Comments 30 sec: 7 reps; pt con't through 15 reps Reviewed use of incentive spirometer Comments Pt demonstrates using her machine today Gait Training Gait Activity Gait with RW Comments Superv to gait train with RW to van in parking lot and pt requires cues to better control walker when pushing it over thresholds. She occ does not pay close attention to where she is going. 100' 6mwt Comments Pt gait trains 473' feet today with rolling walker and requires one standing rest break. PT-OP-T Assessment and Plan Start: 11/25/20 14:02 Freq: Status: Active Protocol: Document 12/31/20 13:47 MB (Rec: 12/31/20 14:29 MB [id number]) Physical Therapy Assessment Rehab Potential Rehabilitation Potential Fair Evaluation Complexity Number of Personal Factors/Comorbidities 3 or More Number of Body Systems Impaired 4 or More Clinical Presentation at Evaluation Unstable Impairments Impairments Activity Tolerance,Balance, Edema,Functional Activities, Functional Mobility,Gait, Integument,Pain,Posture,ROM, Soft Tissue Mobility,Strength Other Impairments Personal factors include recent passing of her sister while pt herself was in the hospital, need for assistance from daughter for ADLs and transportation, post- intubation cognitive changes. Body systems affected include cardiopulmonary, integumentary , musculoskeletal, visceral and cognitive. She is currently receiving dialysis 2x/wk and she and daughter are hopeful that she may possibly be able to wean off in the future. Her clinical presentation is unstable to evolving. Other Concerns Fall Risk Yes Goals Five Senior Living Goal (LTG) Pt will perform progressive HEP with superv including strengthening, balance, posture and gait exercises to improve strength, gait and safety by 02/14/21. LTG Duration 8 weeks Four Senior Living Goal (LTG) Pt will perform at least 8 reps sit to stand with or without UE support in 30 sec to reflect improved functional strength by 02/14/21. LTG Duration 8 weeks Three Senior Living Goal (LTG) Pt will deny falls for 2 months to decrease risk of injury by 02/14/21. LTG Duration 8 weeks Two Aircraft Fuselage Framer Goal (LTG) Pt will gait train at least 1000 feet in 6 minutes with LRAD to improve community ambulation by 02/14/21. LTG Duration 8 weeks One Aircraft Fuselage Framer Goal (LTG) Pt will perform WNLs on a standardized balance test to decrease fall risk by 02/14/21. LTG Duration 8 weeks Assessment Summary Assessment Con't with gait and other therapeutic exercises today. She feels more tired today and does improve with 6MWT. She presents with decreased safety awareness with walking with RW in parking lot today. Physical Therapy Plan Frequency and Duration Frequency of Treatment 2x/Week Duration of Treatment 8 weeks Plan of Care Start Date 12/15/20 Plan of Care End Date 02/14/21 Therapeutic Interventions Therapeutic Interventions Balance Training,Canalithic Repositioning,Coordination Training,Gait Training,Home Exercise Program,Manual Therapy,Neuromuscular Re- education,Patient/Caregiver Education,Self-Care/Home Management,Soft Tissue Mobilization,Therapeutic Activities,Therapeutic Exercises Modalities Hot Packs Next Visit Focus/Plan Next Note Type Treatment Note Next Visit Plan Further balance and gait activities, consider other gentle strengthening exercises
--- NOTE | 2021-01-03 14:30 | PT.OTN ---
Current Diagnoses Other abnormalities of gait and mobility (01/03/21) Physical Therapy Treatment Note PT-OP-A Visit Information Start: 11/25/20 14:02 Freq: Status: Active Protocol: Document 01/03/21 13:48 SP (Rec: 01/03/21 14:33 SP [id number]) Out-Patient Physical Therapy Visit Information Visit Information Visit Type Treatment Note Visit Note Medicare Regence Visit Start Time 13:48 Visit Stop Time 14:30 Total Visit Minutes 42 Visit Number 7 Number of AUTOMATIC DRY STARCH OPERATOR Visits 1 Evaluation Information Evaluation Date 12/15/20 Precautions Precautions Port right UE, dialysis on Tu and Sat, recent infection left 3rd finger 12/29/20: Pt states that she was put on heart monitor for 10 days starting yesterday: EF 30 % in July 2021, EF 53% in October 2020 and reports of a- fib found in October 2020. She denies light-headedness and passing out. Today, pt does state that she is Jehovah Witness and this may contribute to treatments received medically PT-OP-B Current Condition Start: 11/25/20 14:02 Freq: Status: Active Protocol: Document 12/15/20 13:46 MB (Rec: 12/15/20 14:10 MB [id number]) Current Condition History of Current Condition Onset Date Long history of imbalance, worse since hospitalization in July Current Complaints Weakness, imbalance History of Current Condition In July, pt was hospitalized, had NV, cardiomyopathy, pulmonary edema, bowel issues and sepsis . She was ventilated and had dialysis. She was hospitalized twice in July. She later had pancreatitis and was hospitalized in October once for five days. She just got off an antibiotic and her gut is better. Pt did inpatient PT in [place] for 12 days and then had HHPT and OT in 10/17. Pt is concerned about her strength and balance and she would like to increase stamina . Last fall was in 06/15. She has a large scar over her right eyebrow from that fall. She had a near fall more recently and her daughter caught her. Her foot slid under a step. Daughter reports concern about conversation about Hospice that occurred at last PCP visit. She states that the conversation upset her and the patient was depressed the next day. She states that the patient's labs are improving with dialysis and pt states she does have trouble with her calcium levels. Savita, daughter, lives with patient and there are 4 steps and 2 rails to enter. She has a hurrycane, RW, rollator, shower chair, lift recliner and hospital bed. She is sleeping in a regular flat bed with handle. Savita is nearby for safety for bathing. She has suction handbars and removable shower head. Further PMH: back pain, right wrist peripheral vein blood clot and pt is on Plavix, bruises easily, pt is on dialysis 2x/week, OP, shingles , SOB, vision and hearing issues, scleroderma, Crest Syndrome. Socially, pt's sister with whom she lived, 08/10/20 when the pt was hospitalized. Prior Treatments and Tests Hospitalizations, PT, dialysis Treatment Goals Patient/Caregiver Goals To increase strength, balance and endurance PT-OP-C Subjective Start: 11/25/20 14:02 Freq: Status: Active Protocol: Document 01/03/21 13:48 SP (Rec: 01/03/21 14:33 SP [id number]) OP-PT Subjective Patient Comments Patient Comments Pt arrived using fWW the therapist wanted me using my walker to be more stable. I am having gout pain on L toe and hangnail on R so am needing the walker more today. PT-OP-D Balance Start: 11/25/20 14:02 Freq: Status: Active Protocol: Document 12/15/20 13:46 MB (Rec: 12/15/20 16:38 MB [id number]) OP-PT Balance Assessment Sitting Balance Static Sitting Balance Ability Good Dynamic Sitting Balance Ability Fair Sitting Balance Comments UE support for scooting in the chair Standing Balance Static Standing Balance Ability Fair Dynamic Standing Balance Ability Fair Device Used Hurrycane Standing Balance Comments Superv for static and dynamic standing balance today, see comments under gait for postural changes with standing . Further balance testing in future treatments. Khan Fall Scale Copyright Permission PT-OP-G Mobility & Gait Start: 11/25/20 14:02 Freq: Status: Active Protocol: Document 12/15/20 13:46 MB (Rec: 12/15/20 16:38 MB [id number]) OP Gait Assessment Gait Gait Assistance Required: Standby Assistance Distance (Feet) 50 Able to Maintain Weight Bearing Status Yes During Gait Assistive Devices Assistive Device Straight Cane Orthotic/Prosthetic Devices or Brace: No Gait Deviations General Gait Pattern Decreased Stride Length, Decreased Feet Clearance, Flexed Trunk,Narrow Based Gait Factors Limiting Gait Function Factors Limiting Gait Function Decreased Activity Tolerance, Decreased Strength,Poor Balance Comments Gait Comments Pt gait trains with hurrycane in her right hand. She presents with functional left foot drop and left shoulder low with gait, narrow SAIDA and decreased power through RLE as well. Gait is slow and hesitant. PT-OP-J Posture/Palpation/Skin Start: 11/25/20 14:02 Freq: Status: Active Protocol: Document 12/15/20 13:46 MB (Rec: 12/15/20 16:38 MB [id number]) Posture Evaluation Comments Posture Comments Forward posture, rounded shoulders with left shoulder lower than the right, pt holding hurrycane in right hand PT-OP-K Range of Motion Start: 11/25/20 14:02 Freq: Status: Active Protocol: Document 12/15/20 13:46 MB (Rec: 12/15/20 16:38 MB [id number]) Shoulder Goniometric Range of Motion Shoulder ROM Limitations Comments B shoulder flexion to 90 deg: functional weakness with elevating both arms Wrist Goniometric Range of Motion ROM Limitations Comments All fingers have joint changes in setting of Crest syndrome, scleroderma and Raynaud's. Left 3rd finger with bandaid on DIP and she reports recent infection Hip Goniometric Range of Motion Hip ROM Limitations Comments Hip flexion in sitting is weak with active movement and pt has to work to keep left hip flexed to prepare for MMT: does not clear B thighs off chair Ankle and Foot Goniometric Range of Motion Ankle and Foot ROM Limitations Comments Functional foot drop on the left with gait Toe Range of Motion Toes ROM Limitations Comments Pt reports ingrown toe nail right great toe and gout with ecchymosis left first MTP joint PT-OP-M Strength Start: 11/25/20 14:02 Freq: Status: Active Protocol: Document 12/15/20 13:46 MB (Rec: 12/15/20 16:38 MB [id number]) Shoulder Strength Shoulder Manual Muscle Testing Left Flexion 3- Fair- Abduction (C5) 3 Fair Right Flexion 3- Fair- Abduction (C5) 3 Fair Elbow/Forearm Strength Elbow and Forearm Manual Muscle Testing Left Flexion (C6) 3+ Fair+ Extension (C7) 4 Good Right Flexion (C6) 3+ Fair+ Extension (C7) 4 Good Hip Strength Hip Manual Muscle Testing Left Flexion (L2) 2+ Poor+ Right Flexion (L2) 3- Fair- Knee Strength Knee Manual Muscle Testing Left Flexion (S2) 3- Fair- Extension (L3) 3- Fair- Right Flexion (S2) 3+ Fair+ Extension (L3) 3+ Fair+ Ankle/Foot Strength Ankle and Foot Manual Muscle Testing Left Dorsiflexion (L4) 3 Fair Right Dorsiflexion (L4) 3+ Fair+ Toe Strength Toe Manual Muscle Testing Left Great Toe Extension 2+ Poor+ Right Great Toe Extension 3- Fair- PT-OP-Q Treatments Start: 11/25/20 14:02 Freq: Status: Active Protocol: Document 01/03/21 13:48 SP (Rec: 01/03/21 14:33 SP [id number]) Cardio Equipment Recumbent Elliptical ([employer]) Duration (Minutes) 10 Resistance 3 Seat Position 8 Other UEs and LEs cues for 20 RPM, steps total 294 Therapeutic Exercises Sitting Exercises LAQ with band Side bilateral Resistance TB#1 Reps/Minutes x10 Comments cued slowly, APs, alternating, 10 APs, Sit to stands Comments 30 sec: 9 reps Reviewed use of incentive spirometer Sitting Exercise Name states is getting about 1000 on the scale Comments Pt demonstrates using her machine today Thoracic rotation Side bilateral Reps/Minutes x5 Comments Hold end-range and performing breathing for rib mob, 2 reps each side hold Hip rotator stretch Side bilateral Comments 20 sec hold, 2 reps B Hamstring stretch Side bilateral Comments 2 reps with 20 sec hold, toes up Gait Training Gait Activity 6mwt Comments Pt gait trains 481' feet today in 5 min 9 sec with rolling walker and requires 2 standing rest breaks, cued for slow controlled breath and hold off on conversation for energy conservation. Neuro Re-Education Treatment Balance Activities cathie stepping Details f/side Surface firm Equipment 6 hurdles, 1 rail Reps/Duration 2 laps forward, 1 lap side stepping Comments cued slow eccentric heel strike and knee/ hip flexion ( discouraged circumduction) PT-OP-T Assessment and Plan Start: 11/25/20 14:02 Freq: Status: Active Protocol: Document 01/03/21 13:48 SP (Rec: 01/03/21 14:33 SP [id number]) Physical Therapy Assessment Goals Five Healthcare Or Medical Goal (LTG) Pt will perform progressive HEP with superv including strengthening, balance, posture and gait exercises to improve strength, gait and safety by 02/14/21. LTG Duration 8 weeks Four Healthcare Or Medical Goal (LTG) Pt will perform at least 8 reps sit to stand with or without UE support in 30 sec to reflect improved functional strength by 02/14/21. LTG Duration 8 weeks Three Fdc Goal (LTG) Pt will deny falls for 2 months to decrease risk of injury by 02/14/21. LTG Duration 8 weeks Two Fdc Goal (LTG) Pt will gait train at least 1000 feet in 6 minutes with LRAD to improve community ambulation by 02/14/21. LTG Duration 8 weeks One Fdc Goal (LTG) Pt will perform WNLs on a standardized balance test to decrease fall risk by 02/14/21. LTG Duration 8 weeks Assessment Summary Assessment Pt worked hard during tx, able progress in distance during gait but didn't complete 6MWT due to fatigue. Initiated cathie stepping for increase stride and foot clearance for gait. Improved positioning of fWW during tx today. Physical Therapy Plan Frequency and Duration Frequency of Treatment 2x/Week Duration of Treatment 8 weeks Plan of Care Start Date 12/15/20 Plan of Care End Date 02/14/21 Therapeutic Interventions Therapeutic Interventions Balance Training,Canalithic Repositioning,Coordination Training,Gait Training,Home Exercise Program,Manual Therapy,Neuromuscular Re- education,Patient/Caregiver Education,Self-Care/Home Management,Soft Tissue Mobilization,Therapeutic Activities,Therapeutic Exercises Modalities Hot Packs Next Visit Focus/Plan Next Note Type Treatment Note Next Visit Plan Further balance and gait activities, consider other gentle strengthening exercises
--- NOTE | 2021-01-07 11:15 | PT.OTN ---
Current Diagnoses Other abnormalities of gait and mobility (01/07/21) Physical Therapy Treatment Note PT-OP-A Visit Information Start: 11/25/20 14:02 Freq: Status: Active Protocol: Document 01/07/21 10:32 SP (Rec: 01/07/21 11:23 SP [id number]) Out-Patient Physical Therapy Visit Information Visit Information Visit Type Treatment Note Visit Note Medicare Nina BP post biodex BP 132/50, HR 92, unable get SaO2 due to cold fingers, whiteish looking today. Visit Start Time 10:32 Visit Stop Time 11:15 Total Visit Minutes 43 Visit Number 8 Number of SUBSTANCE ABUSE CLINICIAN Visits 2 Evaluation Information Evaluation Date 12/15/20 Precautions Precautions Port right UE, dialysis on and Sun, recent infection left 3rd finger 12/29/20: Pt states that she was put on heart monitor for 10 days starting yesterday: EF 30 % in July 2021, EF 53% in October 2020 and reports of a- fib found in October 2020. She denies light-headedness and passing out. Today, pt does state that she is Jehovah Witness and this may contribute to treatments received medically PT-OP-B Current Condition Start: 11/25/20 14:02 Freq: Status: Active Protocol: Document 12/15/20 13:46 MB (Rec: 12/15/20 14:10 MB [id number]) Current Condition History of Current Condition Onset Date Long history of imbalance, worse since hospitalization in July Current Complaints Weakness, imbalance History of Current Condition In July, pt was hospitalized, had [place], cardiomyopathy, pulmonary edema, bowel issues and sepsis . She was ventilated and had dialysis. She was hospitalized twice in July. She later had pancreatitis and was hospitalized in October once for five days. She just got off an antibiotic and her gut is better. Pt did inpatient PT in [place] for 12 days and then had HHPT and OT in 10/17. Pt is concerned about her strength and balance and she would like to increase stamina . Last fall was in 06/15. She has a large scar over her right eyebrow from that fall. She had a near fall more recently and her daughter caught her. Her foot slid under a step. Daughter reports concern about conversation about Hospice that occurred at last PCP visit. She states that the conversation upset her and the patient was depressed the next day. She states that the patient's labs are improving with dialysis and pt states she does have trouble with her calcium levels. Savita, daughter, lives with patient and there are 4 steps and 2 rails to enter. She has a hurrycane, RW, rollator, shower chair, lift recliner and hospital bed. She is sleeping in a regular flat bed with handle. Savita is nearby for safety for bathing. She has suction handbars and removable shower head. Further PMH: back pain, right wrist peripheral vein blood clot and pt is on Plavix, bruises easily, pt is on dialysis 2x/week, OP, shingles , SOB, vision and hearing issues, scleroderma, Crest Syndrome. Socially, pt's sister with whom she lived, 08/10/20 when the pt was hospitalized. Prior Treatments and Tests Hospitalizations, PT, dialysis Treatment Goals Patient/Caregiver Goals To increase strength, balance and endurance PT-OP-C Subjective Start: 11/25/20 14:02 Freq: Status: Active Protocol: Document 01/07/21 10:32 SP (Rec: 01/07/21 11:23 SP [id number]) OP-PT Subjective Patient Comments Patient Comments Pt arrived using FWW. Pt stated was pretty tired and some tingling in B thighs later in day after last tx, I felt the effort of the PT session, a good thing. PT-OP-D Balance Start: 11/25/20 14:02 Freq: Status: Active Protocol: Document 12/15/20 13:46 MB (Rec: 12/15/20 16:38 MB [id number]) OP-PT Balance Assessment Sitting Balance Static Sitting Balance Ability Good Dynamic Sitting Balance Ability Fair Sitting Balance Comments UE support for scooting in the chair Standing Balance Static Standing Balance Ability Fair Dynamic Standing Balance Ability Fair Device Used Hurrycane Standing Balance Comments Superv for static and dynamic standing balance today, see comments under gait for postural changes with standing . Further balance testing in future treatments. Khan Fall Scale Copyright Permission PT-OP-G Mobility & Gait Start: 11/25/20 14:02 Freq: Status: Active Protocol: Document 12/15/20 13:46 MB (Rec: 12/15/20 16:38 MB [id number]) OP Gait Assessment Gait Gait Assistance Required: Standby Assistance Distance (Feet) 50 Able to Maintain Weight Bearing Status Yes During Gait Assistive Devices Assistive Device Straight Cane Orthotic/Prosthetic Devices or Brace: No Gait Deviations General Gait Pattern Decreased Stride Length, Decreased Feet Clearance, Flexed Trunk,Narrow Based Gait Factors Limiting Gait Function Factors Limiting Gait Function Decreased Activity Tolerance, Decreased Strength,Poor Balance Comments Gait Comments Pt gait trains with hurrycane in her right hand. She presents with functional left foot drop and left shoulder low with gait, narrow SAIDA and decreased power through RLE as well. Gait is slow and hesitant. PT-OP-J Posture/Palpation/Skin Start: 11/25/20 14:02 Freq: Status: Active Protocol: Document 12/15/20 13:46 MB (Rec: 12/15/20 16:38 MB [id number]) Posture Evaluation Comments Posture Comments Forward posture, rounded shoulders with left shoulder lower than the right, pt holding hurrycane in right hand PT-OP-K Range of Motion Start: 11/25/20 14:02 Freq: Status: Active Protocol: Document 12/15/20 13:46 MB (Rec: 12/15/20 16:38 MB [id number]) Shoulder Goniometric Range of Motion Shoulder ROM Limitations Comments B shoulder flexion to 90 deg: functional weakness with elevating both arms Wrist Goniometric Range of Motion ROM Limitations Comments All fingers have joint changes in setting of Crest syndrome, scleroderma and Raynaud's. Left 3rd finger with bandaid on DIP and she reports recent infection Hip Goniometric Range of Motion Hip ROM Limitations Comments Hip flexion in sitting is weak with active movement and pt has to work to keep left hip flexed to prepare for MMT: does not clear B thighs off chair Ankle and Foot Goniometric Range of Motion Ankle and Foot ROM Limitations Comments Functional foot drop on the left with gait Toe Range of Motion Toes ROM Limitations Comments Pt reports ingrown toe nail right great toe and gout with ecchymosis left first MTP joint PT-OP-M Strength Start: 11/25/20 14:02 Freq: Status: Active Protocol: Document 12/15/20 13:46 MB (Rec: 12/15/20 16:38 MB [id number]) Shoulder Strength Shoulder Manual Muscle Testing Left Flexion 3- Fair- Abduction (C5) 3 Fair Right Flexion 3- Fair- Abduction (C5) 3 Fair Elbow/Forearm Strength Elbow and Forearm Manual Muscle Testing Left Flexion (C6) 3+ Fair+ Extension (C7) 4 Good Right Flexion (C6) 3+ Fair+ Extension (C7) 4 Good Hip Strength Hip Manual Muscle Testing Left Flexion (L2) 2+ Poor+ Right Flexion (L2) 3- Fair- Knee Strength Knee Manual Muscle Testing Left Flexion (S2) 3- Fair- Extension (L3) 3- Fair- Right Flexion (S2) 3+ Fair+ Extension (L3) 3+ Fair+ Ankle/Foot Strength Ankle and Foot Manual Muscle Testing Left Dorsiflexion (L4) 3 Fair Right Dorsiflexion (L4) 3+ Fair+ Toe Strength Toe Manual Muscle Testing Left Great Toe Extension 2+ Poor+ Right Great Toe Extension 3- Fair- PT-OP-Q Treatments Start: 11/25/20 14:02 Freq: Status: Active Protocol: Document 01/07/21 10:32 SP (Rec: 01/07/21 11:23 SP [id number]) Cardio Equipment Recumbent Elliptical ([place]) Duration (Minutes) 10 Resistance 3>2 after 7 min>1 after 8 min Seat Position 6 (scooted back in seat better ) Other UEs and LEs cues for 20-25 RPM , steps total 351 Therapeutic Exercises Sitting Exercises B shoulder flexion Side bilateral Reps/Minutes 2x10 Comments cued slow pacing w/TS ext/ chest lift, pt with trouble keeping arms extended LAQ with band Side bilateral Resistance TB#1 anchored to chair leg by therapist Reps/Minutes 2x10 Comments cued slowly, APs, alternating, 10 APs, Sit to stands Equipment Used 30 sec: 9 reps Comments light UE use chair seat upon standing, only contact descent for awareness Thoracic rotation Side bilateral Resistance AAROM Reps/Minutes x5 Comments Hold end-range and performing breathing for rib mob, 2 reps each side hold Gait Training Gait Activity 6mwt Device Used FWW Level of Assistance S Surface level Treatment Focus functional strengthening, endurance gait Comments Pt gait trains 473' feet today with rolling walker and requires one standing rest break. Neuro Re-Education Treatment Balance Activities cathie stepping Details f/side Surface firm Equipment 6 hurdles, 1 rail Reps/Duration 2 laps forward, 1 lap side stepping Comments cued slow eccentric heel strike and knee/ hip flexion ( discouraged circumduction) corner balance Details NBOS, stagger Surface firm floor Comments (front of chair) close SBA 1. stationary 2. head turns 3. EC (only NBOS 30) PT-OP-T Assessment and Plan Start: 11/25/20 14:02 Freq: Status: Active Protocol: Document 01/07/21 10:32 SP (Rec: 01/07/21 11:23 SP [id number]) Physical Therapy Assessment Goals Five Manager Rental Goal (LTG) Pt will perform progressive HEP with superv including strengthening, balance, posture and gait exercises to improve strength, gait and safety by 02/14/21. 01/07/21: progressing: LAQ, FF over head, sit to stands. LTG Duration 8 weeks Four Manager Rental Goal (LTG) Pt will perform at least 8 reps sit to stand with or without UE support in 30 sec to reflect improved functional strength by 02/14/21. 01/07/21: progressin reps in 30 sec but light support of BUE on seat PRN. LTG Duration 8 weeks Three Intermediate Goal (LTG) Pt will deny falls for 2 months to decrease risk of injury by 02/14/21. LTG Duration 8 weeks Two Intermediate Goal (LTG) Pt will gait train at least 1000 feet in 6 minutes with LRAD to improve community ambulation by 02/14/21. 01/07/21: progressing 473 ft using fWW w/ 1 stand rest in 6 min. LTG Duration 8 weeks One Manager Rental Goal (LTG) Pt will perform WNLs on a standardized balance test to decrease fall risk by 02/14/21. LTG Duration 8 weeks Assessment Summary Assessment Pt works hard this tx, requires rest breaks between standing activities due for recovery tiring. Pt required UE contact chair seat today during sit<>stands (performed after seated LE ex). Pt was able to complete 6MWT using fWW same 473 ft as 2 treatments ago (completed after seated ther ex). Will assess distance beginning of tx next. Physical Therapy Plan Frequency and Duration Frequency of Treatment 2x/Week Duration of Treatment 8 weeks Plan of Care Start Date 12/15/20 Plan of Care End Date 02/14/21 Therapeutic Interventions Therapeutic Interventions Balance Training,Canalithic Repositioning,Coordination Training,Gait Training,Home Exercise Program,Manual Therapy,Neuromuscular Re- education,Patient/Caregiver Education,Self-Care/Home Management,Soft Tissue Mobilization,Therapeutic Activities,Therapeutic Exercises Modalities Hot Packs Next Visit Focus/Plan Next Note Type Treatment Note Next Visit Plan Assess reponse to seated LE ex , gait, balance hurdles and NBOS/ stagger last tx. Next tx : start with 6MWT and sit<> stands. POC: Further balance and gait activities, consider other gentle strengthening exercises
--- NOTE | 2021-01-10 13:45 | PT.OTN ---
Current Diagnoses Other abnormalities of gait and mobility (01/10/21) Physical Therapy Treatment Note PT-OP-A Visit Information Start: 11/25/20 14:02 Freq: Status: Active Protocol: Document 01/10/21 13:04 SP (Rec: 01/10/21 13:46 SP [id number]) Out-Patient Physical Therapy Visit Information Visit Information Visit Type Treatment Note Visit Note Medicare [place] BP post biodex BP 132/50. Visit Start Time 13:04 Visit Stop Time 13:45 Total Visit Minutes 41 Visit Number 9 Number of STORM DOOR MAKER Visits 3 Evaluation Information Evaluation Date 12/15/20 Precautions Precautions Port right UE, dialysis on and Sat, recent infection left 3rd finger 12/29/20: Pt states that she was put on heart monitor for 10 days starting yesterday: EF 30 % in July 2021, EF 53% in October 2020 and reports of a- fib found in October 2020. She denies light-headedness and passing out. Today, pt does state that she is Jehovah Witness and this may contribute to treatments received medically PT-OP-B Current Condition Start: 11/25/20 14:02 Freq: Status: Active Protocol: Document 12/15/20 13:46 MB (Rec: 12/15/20 14:10 MB [id number]) Current Condition History of Current Condition Onset Date Long history of imbalance, worse since hospitalization in July Current Complaints Weakness, imbalance History of Current Condition In July, pt was hospitalized, had [place], cardiomyopathy, pulmonary edema, bowel issues and sepsis . She was ventilated and had dialysis. She was hospitalized twice in July. She later had pancreatitis and was hospitalized in October once for five days. She just got off an antibiotic and her gut is better. Pt did inpatient PT in [place] for 12 days and then had HHPT and OT in 10/17. Pt is concerned about her strength and balance and she would like to increase stamina . Last fall was in 06/15. She has a large scar over her right eyebrow from that fall. She had a near fall more recently and her daughter caught her. Her foot slid under a step. Daughter reports concern about conversation about Hospice that occurred at last PCP visit. She states that the conversation upset her and the patient was depressed the next day. She states that the patient's labs are improving with dialysis and pt states she does have trouble with her calcium levels. Savita, daughter, lives with patient and there are 4 steps and 2 rails to enter. She has a hurrycane, RW, rollator, shower chair, lift recliner and hospital bed. She is sleeping in a regular flat bed with handle. Savita is nearby for safety for bathing. She has suction handbars and removable shower head. Further PMH: back pain, right wrist peripheral vein blood clot and pt is on Plavix, bruises easily, pt is on dialysis 2x/week, OP, shingles , SOB, vision and hearing issues, scleroderma, Crest Syndrome. Socially, pt's sister with whom she lived, 08/10/20 when the pt was hospitalized. Prior Treatments and Tests Hospitalizations, PT, dialysis Treatment Goals Patient/Caregiver Goals To increase strength, balance and endurance PT-OP-C Subjective Start: 11/25/20 14:02 Freq: Status: Active Protocol: Document 01/10/21 13:04 SP (Rec: 01/10/21 13:46 SP [id number]) OP-PT Subjective Patient Comments Patient Comments Pt took a shower this am and does take energy out of her. Pt states was sore after last tx but feels the activities in PT are helpful, her reach putting things away and walking endurance around house better, thinks able to get up off any chair in house now without difficulty. PT-OP-D Balance Start: 11/25/20 14:02 Freq: Status: Active Protocol: Document 12/15/20 13:46 MB (Rec: 12/15/20 16:38 MB [id number]) OP-PT Balance Assessment Sitting Balance Static Sitting Balance Ability Good Dynamic Sitting Balance Ability Fair Sitting Balance Comments UE support for scooting in the chair Standing Balance Static Standing Balance Ability Fair Dynamic Standing Balance Ability Fair Device Used Hurrycane Standing Balance Comments Superv for static and dynamic standing balance today, see comments under gait for postural changes with standing . Further balance testing in future treatments. Khan Fall Scale Copyright Permission PT-OP-G Mobility & Gait Start: 11/25/20 14:02 Freq: Status: Active Protocol: Document 12/15/20 13:46 MB (Rec: 12/15/20 16:38 MB [id number]) OP Gait Assessment Gait Gait Assistance Required: Standby Assistance Distance (Feet) 50 Able to Maintain Weight Bearing Status Yes During Gait Assistive Devices Assistive Device Straight Cane Orthotic/Prosthetic Devices or Brace: No Gait Deviations General Gait Pattern Decreased Stride Length, Decreased Feet Clearance, Flexed Trunk,Narrow Based Gait Factors Limiting Gait Function Factors Limiting Gait Function Decreased Activity Tolerance, Decreased Strength,Poor Balance Comments Gait Comments Pt gait trains with hurrycane in her right hand. She presents with functional left foot drop and left shoulder low with gait, narrow SAIDA and decreased power through RLE as well. Gait is slow and hesitant. PT-OP-J Posture/Palpation/Skin Start: 11/25/20 14:02 Freq: Status: Active Protocol: Document 12/15/20 13:46 MB (Rec: 12/15/20 16:38 MB [id number]) Posture Evaluation Comments Posture Comments Forward posture, rounded shoulders with left shoulder lower than the right, pt holding hurrycane in right hand PT-OP-K Range of Motion Start: 11/25/20 14:02 Freq: Status: Active Protocol: Document 12/15/20 13:46 MB (Rec: 12/15/20 16:38 MB [id number]) Shoulder Goniometric Range of Motion Shoulder ROM Limitations Comments B shoulder flexion to 90 deg: functional weakness with elevating both arms Wrist Goniometric Range of Motion ROM Limitations Comments All fingers have joint changes in setting of Crest syndrome, scleroderma and Raynaud's. Left 3rd finger with bandaid on DIP and she reports recent infection Hip Goniometric Range of Motion Hip ROM Limitations Comments Hip flexion in sitting is weak with active movement and pt has to work to keep left hip flexed to prepare for MMT: does not clear B thighs off chair Ankle and Foot Goniometric Range of Motion Ankle and Foot ROM Limitations Comments Functional foot drop on the left with gait Toe Range of Motion Toes ROM Limitations Comments Pt reports ingrown toe nail right great toe and gout with ecchymosis left first MTP joint PT-OP-M Strength Start: 11/25/20 14:02 Freq: Status: Active Protocol: Document 12/15/20 13:46 MB (Rec: 12/15/20 16:38 MB [id number]) Shoulder Strength Shoulder Manual Muscle Testing Left Flexion 3- Fair- Abduction (C5) 3 Fair Right Flexion 3- Fair- Abduction (C5) 3 Fair Elbow/Forearm Strength Elbow and Forearm Manual Muscle Testing Left Flexion (C6) 3+ Fair+ Extension (C7) 4 Good Right Flexion (C6) 3+ Fair+ Extension (C7) 4 Good Hip Strength Hip Manual Muscle Testing Left Flexion (L2) 2+ Poor+ Right Flexion (L2) 3- Fair- Knee Strength Knee Manual Muscle Testing Left Flexion (S2) 3- Fair- Extension (L3) 3- Fair- Right Flexion (S2) 3+ Fair+ Extension (L3) 3+ Fair+ Ankle/Foot Strength Ankle and Foot Manual Muscle Testing Left Dorsiflexion (L4) 3 Fair Right Dorsiflexion (L4) 3+ Fair+ Toe Strength Toe Manual Muscle Testing Left Great Toe Extension 2+ Poor+ Right Great Toe Extension 3- Fair- PT-OP-Q Treatments Start: 11/25/20 14:02 Freq: Status: Active Protocol: Document 01/10/21 13:04 SP (Rec: 01/10/21 13:46 SP [id number]) Cardio Equipment Recumbent Elliptical (elastic.io) Duration (Minutes) 10 Resistance 1 (very tired today) Seat Position 8 Other UEs and LEs cues for 20-25 RPM , steps total 382. Gym Equipment Shuttle Recovery Bilateral Squats Details cued knee alignment with toes see medial insoles Resistance 37# Shuttle Recovery Platform Stable Reps/Time 2x10 Unilateral Squats Details cued knee alignment with toes see medial insole Resistance 25 Shuttle Recovery Platform Stable Reps/Time x10 R, x9 L Therapeutic Exercises Sitting Exercises DF Side bilateral Reps/Minutes x20 Comments to support foot clearance during gait. She states does at counter at times. B shoulder flexion Side bilateral Reps/Minutes 2x10 Comments cued slow pacing w/TS ext/ chest lift, pt with trouble keeping arms extended Thoracic rotation Side bilateral Resistance TB #1 Equipment Used therapist anchor band Reps/Minutes X10 reps Comments cued upright posture, arms acoss chest Hip rotator stretch Side bilateral Comments 20 sec hold, 2 reps B Hamstring stretch Side bilateral Comments 2 reps with 20 sec hold, toes up Gait Training Gait Activity 6mwt Device Used FWW Level of Assistance S Surface level Treatment Focus functional strengthening, endurance gait Comments Pt gait trains 488' feet today with rolling walker and requires one standing rest break, cuing x4 for DF to improved foot clearance. PT-OP-T Assessment and Plan Start: 11/25/20 14:02 Freq: Status: Active Protocol: Document 01/10/21 13:04 SP (Rec: 01/10/21 13:46 SP [id number]) Physical Therapy Assessment Goals Five Fdc Goal (LTG) Pt will perform progressive HEP with superv including strengthening, balance, posture and gait exercises to improve strength, gait and safety by 02/14/21. 01/07/21: progressing: LAQ, FF over head, sit to stands. LTG Duration 8 weeks Four Spike Machine Feeder Goal (LTG) Pt will perform at least 8 reps sit to stand with or without UE support in 30 sec to reflect improved functional strength by 02/14/21. 01/07/21: progressin reps in 30 sec but light support of BUE on seat PRN. LTG Duration 8 weeks Three Fdc Goal (LTG) Pt will deny falls for 2 months to decrease risk of injury by 02/14/21. 01/10/21: progressing: no falls since started outpt PT, using FWW and using tray to transport items in kitchen. LTG Duration 8 weeks Two Spike Machine Feeder Goal (LTG) Pt will gait train at least 1000 feet in 6 minutes with LRAD to improve community ambulation by 02/14/21. 01/07/21: progressing 473 ft using fWW w/ 1 stand rest in 6 min. LTG Duration 8 weeks One Fdc Goal (LTG) Pt will perform WNLs on a standardized balance test to decrease fall risk by 02/14/21. LTG Duration 8 weeks Assessment Summary Assessment Pt decreased energy today but able to walk further distance gait and steps/ min on bike, took a shower before PT. Decreased leg press resistance today. Initiated DF ROM sitting to support foot clearance ROM when sitting at home. Physical Therapy Plan Frequency and Duration Frequency of Treatment 2x/Week Duration of Treatment 8 weeks Plan of Care Start Date 12/15/20 Plan of Care End Date 02/14/21 Therapeutic Interventions Therapeutic Interventions Balance Training,Canalithic Repositioning,Coordination Training,Gait Training,Home Exercise Program,Manual Therapy,Neuromuscular Re- education,Patient/Caregiver Education,Self-Care/Home Management,Soft Tissue Mobilization,Therapeutic Activities,Therapeutic Exercises Modalities Hot Packs Next Visit Focus/Plan Next Note Type Treatment Note Next Visit Plan Assess reponse to seated LE ex , gait, shuttle recovery last tx. Next tx: start with 6MWT and sit<>stands. POC: Further balance and gait activities, consider other gentle strengthening exercises
--- NOTE | 2021-01-14 13:46 | PT.OTN ---
Current Diagnoses Other abnormalities of gait and mobility (01/14/21) Physical Therapy Treatment Note PT-OP-A Visit Information Start: 11/25/20 14:02 Freq: Status: Active Protocol: Document 01/14/21 13:05 SP (Rec: 01/14/21 16:36 SP [id number]) Out-Patient Physical Therapy Visit Information Visit Information Visit Type Treatment Note Visit Note Medicare Regence BP post biodex BP . Visit Start Time 13:05 Visit Stop Time 13:46 Total Visit Minutes 41 Visit Number 10 Number of [employer] Visits 4 Evaluation Information Evaluation Date 12/15/20 Precautions Precautions Port right UE, dialysis on and Sun, recent infection left 3rd finger 12/29/20: Pt states that she was put on heart monitor for 10 days starting yesterday: EF 30 % in July 2021, EF 53% in October 2020 and reports of a- fib found in October 2020. She denies light-headedness and passing out. Today, pt does state that she is [employer] and this may contribute to treatments received medically PT-OP-B Current Condition Start: 11/25/20 14:02 Freq: Status: Active Protocol: Document 12/15/20 13:46 MB (Rec: 12/15/20 14:10 MB [id number]) Current Condition History of Current Condition Onset Date Long history of imbalance, worse since hospitalization in July Current Complaints Weakness, imbalance History of Current Condition In July, pt was hospitalized, had MT, cardiomyopathy, pulmonary edema, bowel issues and sepsis . She was ventilated and had dialysis. She was hospitalized twice in July. She later had pancreatitis and was hospitalized in October once for five days. She just got off an antibiotic and her gut is better. Pt did inpatient PT in [place] for 12 days and then had HHPT and OT in 10/17. Pt is concerned about her strength and balance and she would like to increase stamina . Last fall was in 06/15. She has a large scar over her right eyebrow from that fall. She had a near fall more recently and her daughter caught her. Her foot slid under a step. Daughter reports concern about conversation about Hospice that occurred at last PCP visit. She states that the conversation upset her and the patient was depressed the next day. She states that the patient's labs are improving with dialysis and pt states she does have trouble with her calcium levels. Savita, daughter, lives with patient and there are 4 steps and 2 rails to enter. She has a hurrycane, RW, rollator, shower chair, lift recliner and hospital bed. She is sleeping in a regular flat bed with handle. Savita is nearby for safety for bathing. She has suction handbars and removable shower head. Further PMH: back pain, right wrist peripheral vein blood clot and pt is on Plavix, bruises easily, pt is on dialysis 2x/week, OP, shingles , SOB, vision and hearing issues, scleroderma, Crest Syndrome. Socially, pt's sister with whom she lived, 08/10/20 when the pt was hospitalized. Prior Treatments and Tests Hospitalizations, PT, dialysis Treatment Goals Patient/Caregiver Goals To increase strength, balance and endurance PT-OP-C Subjective Start: 11/25/20 14:02 Freq: Status: Active Protocol: Document 01/14/21 13:05 SP (Rec: 01/14/21 16:36 SP [id number]) OP-PT Subjective Patient Comments Patient Comments Pt stated tired starting out, didn't fall asleep until 5 am and had to get up at 8am today . States feels is getting a good work out with PT. Noticed leg and back aches but unsure why. Pt stated has been suggested change in dialysis via peritineal catheter. PT-OP-D Balance Start: 11/25/20 14:02 Freq: Status: Active Protocol: Document 12/15/20 13:46 MB (Rec: 12/15/20 16:38 MB [id number]) OP-PT Balance Assessment Sitting Balance Static Sitting Balance Ability Good Dynamic Sitting Balance Ability Fair Sitting Balance Comments UE support for scooting in the chair Standing Balance Static Standing Balance Ability Fair Dynamic Standing Balance Ability Fair Device Used Hurrycane Standing Balance Comments Superv for static and dynamic standing balance today, see comments under gait for postural changes with standing . Further balance testing in future treatments. Khan Fall Scale Copyright Permission PT-OP-G Mobility & Gait Start: 11/25/20 14:02 Freq: Status: Active Protocol: Document 12/15/20 13:46 MB (Rec: 12/15/20 16:38 MB [id number]) OP Gait Assessment Gait Gait Assistance Required: Standby Assistance Distance (Feet) 50 Able to Maintain Weight Bearing Status Yes During Gait Assistive Devices Assistive Device Straight Cane Orthotic/Prosthetic Devices or Brace: No Gait Deviations General Gait Pattern Decreased Stride Length, Decreased Feet Clearance, Flexed Trunk,Narrow Based Gait Factors Limiting Gait Function Factors Limiting Gait Function Decreased Activity Tolerance, Decreased Strength,Poor Balance Comments Gait Comments Pt gait trains with hurrycane in her right hand. She presents with functional left foot drop and left shoulder low with gait, narrow SAIDA and decreased power through RLE as well. Gait is slow and hesitant. PT-OP-J Posture/Palpation/Skin Start: 11/25/20 14:02 Freq: Status: Active Protocol: Document 12/15/20 13:46 MB (Rec: 12/15/20 16:38 MB [id number]) Posture Evaluation Comments Posture Comments Forward posture, rounded shoulders with left shoulder lower than the right, pt holding hurrycane in right hand PT-OP-K Range of Motion Start: 11/25/20 14:02 Freq: Status: Active Protocol: Document 12/15/20 13:46 MB (Rec: 12/15/20 16:38 MB [id number]) Shoulder Goniometric Range of Motion Shoulder ROM Limitations Comments B shoulder flexion to 90 deg: functional weakness with elevating both arms Wrist Goniometric Range of Motion ROM Limitations Comments All fingers have joint changes in setting of Crest syndrome, scleroderma and Raynaud's. Left 3rd finger with bandaid on DIP and she reports recent infection Hip Goniometric Range of Motion Hip ROM Limitations Comments Hip flexion in sitting is weak with active movement and pt has to work to keep left hip flexed to prepare for MMT: does not clear B thighs off chair Ankle and Foot Goniometric Range of Motion Ankle and Foot ROM Limitations Comments Functional foot drop on the left with gait Toe Range of Motion Toes ROM Limitations Comments Pt reports ingrown toe nail right great toe and gout with ecchymosis left first MTP joint PT-OP-M Strength Start: 11/25/20 14:02 Freq: Status: Active Protocol: Document 12/15/20 13:46 MB (Rec: 12/15/20 16:38 MB [id number]) Shoulder Strength Shoulder Manual Muscle Testing Left Flexion 3- Fair- Abduction (C5) 3 Fair Right Flexion 3- Fair- Abduction (C5) 3 Fair Elbow/Forearm Strength Elbow and Forearm Manual Muscle Testing Left Flexion (C6) 3+ Fair+ Extension (C7) 4 Good Right Flexion (C6) 3+ Fair+ Extension (C7) 4 Good Hip Strength Hip Manual Muscle Testing Left Flexion (L2) 2+ Poor+ Right Flexion (L2) 3- Fair- Knee Strength Knee Manual Muscle Testing Left Flexion (S2) 3- Fair- Extension (L3) 3- Fair- Right Flexion (S2) 3+ Fair+ Extension (L3) 3+ Fair+ Ankle/Foot Strength Ankle and Foot Manual Muscle Testing Left Dorsiflexion (L4) 3 Fair Right Dorsiflexion (L4) 3+ Fair+ Toe Strength Toe Manual Muscle Testing Left Great Toe Extension 2+ Poor+ Right Great Toe Extension 3- Fair- PT-OP-Q Treatments Start: 11/25/20 14:02 Freq: Status: Active Protocol: Document 01/14/21 13:05 SP (Rec: 01/14/21 16:36 SP [id number]) Cardio Equipment Recumbent Elliptical ([employer]) Duration (Minutes) 10 Resistance 1 (tired today) Seat Position 8 Other UEs and LEs cues for 20-25 RPM , steps total . Gym Equipment Shuttle Recovery Bilateral Squats Details cued knee alignment with toes see medial insoles Resistance 37# Shuttle Recovery Platform Stable Reps/Time x18 PT-OP-T Assessment and Plan Start: 11/25/20 14:02 Freq: Status: Active Protocol: Document 01/14/21 13:05 SP (Rec: 01/14/21 16:36 SP [id number]) Physical Therapy Assessment Goals Five Correction Goal (LTG) Pt will perform progressive HEP with superv including strengthening, balance, posture and gait exercises to improve strength, gait and safety by 02/14/21. 01/07/21: progressing: LAQ, FF over head, sit to stands. LTG Duration 8 weeks Four Director Web Goal (LTG) Pt will perform at least 8 reps sit to stand with or without UE support in 30 sec to reflect improved functional strength by 02/14/21. 01/07/21: progressin reps in 30 sec but light support of BUE on seat, states likes to be sure sitting in chair. LTG Duration 8 weeks Three Correction Goal (LTG) Pt will deny falls for 2 months to decrease risk of injury by 02/14/21. 01/10/21: progressing: no falls since started outpt PT, using FWW and using tray to transport items in kitchen. LTG Duration 8 weeks Two Director Web Goal (LTG) Pt will gait train at least 1000 feet in 6 minutes with LRAD to improve community ambulation by 02/14/21. 01/07/21: progressing 473 ft using fWW w/ 1 stand rest in 6 min. 01/14/21: 601 ft in 6 min using FWW for support no rest break required. LTG Duration 8 weeks One Director Web Goal (LTG) Pt will perform WNLs on a standardized balance test to decrease fall risk by 02/14/21. 01/14/21: DGI= no AD, TUG 13.04 sec no AD LTG Duration 8 weeks Progress Towards Goals Progress Towards Goals Progressing Toward Goals Progress Comments Assessed -DGI: at risk for falls < 1 -TUG 13.02 sec no AD, SBA for safety. -Sit to stands 9 reps in 30 sec with light contact chair. -improved 6mwt by 128 ft using FWW for support with no rest break required, was little short of breath HR 80bpm and states norm in the 60s at rest . Assessment Summary Assessment Pt able to carry on converstation during biodex today with increased energy level/ endurance, safe vitals. Pt progressed in gait distance, assessed progress with goals. Pt states PT is helping her feel stronger, does feel wiped out after PT but does not affect her activity at home. Physical Therapy Plan Frequency and Duration Frequency of Treatment 2x/Week Duration of Treatment 8 weeks Plan of Care Start Date 12/15/20 Plan of Care End Date 02/14/21 Therapeutic Interventions Therapeutic Interventions Balance Training,Canalithic Repositioning,Coordination Training,Gait Training,Home Exercise Program,Manual Therapy,Neuromuscular Re- education,Patient/Caregiver Education,Self-Care/Home Management,Soft Tissue Mobilization,Therapeutic Activities,Therapeutic Exercises Modalities Hot Packs Next Visit Focus/Plan Next Note Type Treatment Note Next Visit Plan Assess reponse balanc and gait assessments, shuttle recovery last tx. Continue progress balance and gait activities, consider other gentle strengthening exercises
--- NOTE | 2021-01-19 16:04 | PT.OPPOC ---
Physical, Occupational & Speech Therapy At [facility] Current Diagnoses Other abnormalities of gait and mobility (01/19/21) Visit Care Team Role Provider Type Todd Lanza DO Attending Provider Physician Family Provider Primary Care Provider Referring Provider Specialty: Family Practice Address: [address] [place] [address], [id number] Email: Plan Of Care PT-OP-T Assessment and Plan Start: 11/25/20 14:02 Freq: Status: Active Protocol: Document 01/19/21 13:45 MB (Rec: 01/19/21 14:29 MB [id number]) Physical Therapy Assessment Rehab Potential Rehabilitation Potential Fair Impairments Impairments Activity Tolerance,Balance, Edema,Functional Activities, Functional Mobility,Gait, Posture,ROM,Strength,Transfers Other Concerns Fall Risk Yes Goals Five Fci Goal (LTG) Pt will perform progressive HEP with superv including strengthening, balance, posture and gait exercises to improve strength, gait and safety by 03/21/21. 01/19/21: LAQ, FF over head, sit to stands. LTG Duration 8 weeks Four Shank Carrier Goal (LTG) Pt will perform at least 10 reps sit to stand with or without UE support in 30 sec to reflect improved functional strength by 03/21/21. 01/19/21: Pt performs 8 reps sit to stand with light UE support in 30 sec LTG Duration 8 weeks Three Fci Goal (LTG) Pt will deny falls for 2 months to decrease risk of injury by 03/21/21. 01/19/21: Pt denies falls since starting PT LTG Duration 8 weeks Two Fci Goal (LTG) Pt will gait train at least 1000 feet in 6 minutes with LRAD to improve community ambulation by 03/21/21. 01/19/21: HR and O2 sats left index before gait: 89% and 78 BPM. Pt does present with LIRA. She gait trains 618 feet in 6 minutes with her rollator and 2 standing rest breaks. O2 sats and HR after treatment are not able to read well: history of Raynauld's with blueish and cool fingers. LTG Duration 8 weeks One Shank Carrier Goal (LTG) Pt will perform WNLs on a standardized balance test to decrease fall risk by 03/21/21. 01/14/21: DGI= no AD, TUG 13.04 sec no AD LTG Duration 8 weeks Assessment Summary Assessment Pt has progressed towards all PT goals since starting PT. These include balance, gait, sit to stands and exercises. She denies falls. Pt's medical presentation is complicated and this is a barrier to PT. She will benefit from ongoing PT to improve balance, gait, strength and mobility. Physical Therapy Plan Frequency and Duration Frequency of Treatment 2x/Week Duration of Treatment 8 weeks Plan of Care Start Date 01/19/21 Plan of Care End Date 03/21/21 Therapeutic Interventions Therapeutic Interventions Balance Training,Canalithic Repositioning,Coordination Training,Gait Training,Home Exercise Program,Joint Mobilizations,Manual Therapy, Neuromuscular Re-education, Patient/Caregiver Education, Self-Care/Home Management,Soft Tissue Mobilization,Taping, Therapeutic Activities, Therapeutic Exercises Modalities Hot Packs Next Visit Focus/Plan Next Note Type Treatment Note Next Visit Plan Review her HEP, pt to bring in folder Plan of Care Dates Plan of Care Start Date 01/19/21 Plan of Care End Date 03/21/21 Electronically Signed by: Preeti Kim, PT 01/19/21 [id number] Please Sign and Return: I have reviewed this Plan of Care and certify that the skilled therapy services above are required to meet the patient?s needs. Physician Signature Date Printed Name and Credentials Clinical Instructor Signature Printed Name and Credentials
--- NOTE | 2021-01-19 16:04 | PT.OTN ---
Current Diagnoses Other abnormalities of gait and mobility (01/19/21) Physical Therapy Treatment Note PT-OP-A Visit Information Start: 11/25/20 14:02 Freq: Status: Active Protocol: Document 01/19/21 13:45 MB (Rec: 01/19/21 14:29 MB [id number]) Out-Patient Physical Therapy Visit Information Visit Information Visit Type Progress Note Visit Note Medicare Regence Visit Start Time 13:45 Visit Stop Time 14:30 Total Visit Minutes 45 Visit Number 11 Number of BARISTA Visits 0 Precautions Precautions Port right UE, dialysis on Tues and Sat, recent infection left 3rd finger 12/29/20: Pt states that she was put on heart monitor for 10 days starting yesterday: EF 30 % in July 2021, EF 53% in October 2020 and reports of a- fib found in October 2020. She denies light-headedness and passing out. Today, pt does state that she is Jehovah Witness and this may contribute to treatments received medically PT-OP-B Current Condition Start: 11/25/20 14:02 Freq: Status: Active Protocol: Document 12/15/20 13:46 MB (Rec: 12/15/20 14:10 MB [id number]) Current Condition History of Current Condition Onset Date Long history of imbalance, worse since hospitalization in July Current Complaints Weakness, imbalance History of Current Condition In July, pt was hospitalized, had [place], cardiomyopathy, pulmonary edema, bowel issues and sepsis . She was ventilated and had dialysis. She was hospitalized twice in July. She later had pancreatitis and was hospitalized in October once for five days. She just got off an antibiotic and her gut is better. Pt did inpatient PT in [place] for 12 days and then had HHPT and OT in 10/17. Pt is concerned about her strength and balance and she would like to increase stamina . Last fall was in 06/15. She has a large scar over her right eyebrow from that fall. She had a near fall more recently and her daughter caught her. Her foot slid under a step. Daughter reports concern about conversation about Hospice that occurred at last PCP visit. She states that the conversation upset her and the patient was depressed the next day. She states that the patient's labs are improving with dialysis and pt states she does have trouble with her calcium levels. Savita, daughter, lives with patient and there are 4 steps and 2 rails to enter. She has a hurrycane, RW, rollator, shower chair, lift recliner and hospital bed. She is sleeping in a regular flat bed with handle. Savita is nearby for safety for bathing. She has suction handbars and removable shower head. Further PMH: back pain, right wrist peripheral vein blood clot and pt is on Plavix, bruises easily, pt is on dialysis 2x/week, OP, shingles , SOB, vision and hearing issues, scleroderma, Crest Syndrome. Socially, pt's sister with whom she lived, 08/10/20 when the pt was hospitalized. Prior Treatments and Tests Hospitalizations, PT, dialysis Treatment Goals Patient/Caregiver Goals To increase strength, balance and endurance PT-OP-C Subjective Start: 11/25/20 14:02 Freq: Status: Active Protocol: Document 01/19/21 13:45 MB (Rec: 01/19/21 14:29 MB [id number]) OP-PT Subjective Patient Comments Patient Comments Pt is very talkative and states she saw her storekeeper engineering and met with the lady who talked with her about the dialysis at home. She is worried about not sleeping well with the abdominal line. PT-OP-D Balance Start: 11/25/20 14:02 Freq: Status: Active Protocol: Document 12/15/20 13:46 MB (Rec: 12/15/20 16:38 MB [id number]) OP-PT Balance Assessment Sitting Balance Static Sitting Balance Ability Good Dynamic Sitting Balance Ability Fair Sitting Balance Comments UE support for scooting in the chair Standing Balance Static Standing Balance Ability Fair Dynamic Standing Balance Ability Fair Device Used Hurrycane Standing Balance Comments Superv for static and dynamic standing balance today, see comments under gait for postural changes with standing . Further balance testing in future treatments. Khan Fall Scale Copyright Permission PT-OP-G Mobility & Gait Start: 11/25/20 14:02 Freq: Status: Active Protocol: Document 12/15/20 13:46 MB (Rec: 12/15/20 16:38 MB [id number]) OP Gait Assessment Gait Gait Assistance Required: Standby Assistance Distance (Feet) 50 Able to Maintain Weight Bearing Status Yes During Gait Assistive Devices Assistive Device Straight Cane Orthotic/Prosthetic Devices or Brace: No Gait Deviations General Gait Pattern Decreased Stride Length, Decreased Feet Clearance, Flexed Trunk,Narrow Based Gait Factors Limiting Gait Function Factors Limiting Gait Function Decreased Activity Tolerance, Decreased Strength,Poor Balance Comments Gait Comments Pt gait trains with hurrycane in her right hand. She presents with functional left foot drop and left shoulder low with gait, narrow SAIDA and decreased power through RLE as well. Gait is slow and hesitant. PT-OP-J Posture/Palpation/Skin Start: 11/25/20 14:02 Freq: Status: Active Protocol: Document 12/15/20 13:46 MB (Rec: 12/15/20 16:38 MB [id number]) Posture Evaluation Comments Posture Comments Forward posture, rounded shoulders with left shoulder lower than the right, pt holding hurrycane in right hand PT-OP-K Range of Motion Start: 11/25/20 14:02 Freq: Status: Active Protocol: Document 12/15/20 13:46 MB (Rec: 12/15/20 16:38 MB [id number]) Shoulder Goniometric Range of Motion Shoulder ROM Limitations Comments B shoulder flexion to 90 deg: functional weakness with elevating both arms Wrist Goniometric Range of Motion ROM Limitations Comments All fingers have joint changes in setting of Crest syndrome, scleroderma and Raynaud's. Left 3rd finger with bandaid on DIP and she reports recent infection Hip Goniometric Range of Motion Hip ROM Limitations Comments Hip flexion in sitting is weak with active movement and pt has to work to keep left hip flexed to prepare for MMT: does not clear B thighs off chair Ankle and Foot Goniometric Range of Motion Ankle and Foot ROM Limitations Comments Functional foot drop on the left with gait Toe Range of Motion Toes ROM Limitations Comments Pt reports ingrown toe nail right great toe and gout with ecchymosis left first MTP joint PT-OP-M Strength Start: 11/25/20 14:02 Freq: Status: Active Protocol: Document 12/15/20 13:46 MB (Rec: 12/15/20 16:38 MB [id number]) Shoulder Strength Shoulder Manual Muscle Testing Left Flexion 3- Fair- Abduction (C5) 3 Fair Right Flexion 3- Fair- Abduction (C5) 3 Fair Elbow/Forearm Strength Elbow and Forearm Manual Muscle Testing Left Flexion (C6) 3+ Fair+ Extension (C7) 4 Good Right Flexion (C6) 3+ Fair+ Extension (C7) 4 Good Hip Strength Hip Manual Muscle Testing Left Flexion (L2) 2+ Poor+ Right Flexion (L2) 3- Fair- Knee Strength Knee Manual Muscle Testing Left Flexion (S2) 3- Fair- Extension (L3) 3- Fair- Right Flexion (S2) 3+ Fair+ Extension (L3) 3+ Fair+ Ankle/Foot Strength Ankle and Foot Manual Muscle Testing Left Dorsiflexion (L4) 3 Fair Right Dorsiflexion (L4) 3+ Fair+ Toe Strength Toe Manual Muscle Testing Left Great Toe Extension 2+ Poor+ Right Great Toe Extension 3- Fair- PT-OP-Q Treatments Start: 11/25/20 14:02 Freq: Status: Active Protocol: Document 01/19/21 13:45 MB (Rec: 01/19/21 16:04 MB [id number]) Cardio Equipment Recumbent Elliptical (Tappx) Duration (Minutes) 10 Resistance 1 Other UE and LE use Therapeutic Exercises Sitting Exercises Sit to stands Comments See comments under goal today, 8 reps in 30 sec Gait Training Gait Activity Gait with RW Device Used Pt's rollator Comments See findings under goal today, pt improved gait distance, little talking with gait and no real LIRA, though she does take two standing rest breaks. Superv for gait this longer distance Pt gait trains with superv and rollator in clinic and out to walkway with PT Self-Care/Home Management Treatment Education Other Education Discussion about progress with PT, con't PT, medical co- morbidities, ongoing use of rollator, bring in folder with HEP, con't to work towards quality of life goals with PT goals (strengthening, gait and balance) PT-OP-T Assessment and Plan Start: 11/25/20 14:02 Freq: Status: Active Protocol: Document 01/19/21 13:45 MB (Rec: 01/19/21 14:29 MB [id number]) Physical Therapy Assessment Rehab Potential Rehabilitation Potential Fair Impairments Impairments Activity Tolerance,Balance, Edema,Functional Activities, Functional Mobility,Gait, Posture,ROM,Strength,Transfers Other Concerns Fall Risk Yes Goals Five Fdc Goal (LTG) Pt will perform progressive HEP with superv including strengthening, balance, posture and gait exercises to improve strength, gait and safety by 03/21/21. 01/19/21: LAQ, FF over head, sit to stands. LTG Duration 8 weeks Four Experimental Physicist Goal (LTG) Pt will perform at least 10 reps sit to stand with or without UE support in 30 sec to reflect improved functional strength by 03/21/21. 01/19/21: Pt performs 8 reps sit to stand with light UE support in 30 sec LTG Duration 8 weeks Three Experimental Physicist Goal (LTG) Pt will deny falls for 2 months to decrease risk of injury by 03/21/21. 01/19/21: Pt denies falls since starting PT LTG Duration 8 weeks Two Fdc Goal (LTG) Pt will gait train at least 1000 feet in 6 minutes with LRAD to improve community ambulation by 03/21/21. 01/19/21: HR and O2 sats left index before gait: 89% and 78 BPM. Pt does present with LIRA. She gait trains 618 feet in 6 minutes with her rollator and 2 standing rest breaks. O2 sats and HR after treatment are not able to read well: history of Raynauld's with blueish and cool fingers. LTG Duration 8 weeks One Fdc Goal (LTG) Pt will perform WNLs on a standardized balance test to decrease fall risk by 03/21/21. 01/14/21: DGI=17 no AD, TUG 13.04 sec no AD LTG Duration 8 weeks Assessment Summary Assessment Pt has progressed towards all PT goals since starting PT. These include balance, gait, sit to stands and exercises. She denies falls. Pt's medical presentation is complicated and this is a barrier to PT. She will benefit from ongoing PT to improve balance, gait, strength and mobility. Physical Therapy Plan Frequency and Duration Frequency of Treatment 2x/Week Duration of Treatment 8 weeks Plan of Care Start Date 01/19/21 Plan of Care End Date 03/21/21 Therapeutic Interventions Therapeutic Interventions Balance Training,Canalithic Repositioning,Coordination Training,Gait Training,Home Exercise Program,Joint Mobilizations,Manual Therapy, Neuromuscular Re-education, Patient/Caregiver Education, Self-Care/Home Management,Soft Tissue Mobilization,Taping, Therapeutic Activities, Therapeutic Exercises Modalities Hot Packs Next Visit Focus/Plan Next Note Type Treatment Note Next Visit Plan Review her HEP, pt to bring in folder
--- NOTE | 2021-01-21 11:20 | PT.OTN ---
Current Diagnoses Other abnormalities of gait and mobility (01/21/21) Physical Therapy Treatment Note PT-OP-A Visit Information Start: 11/25/20 14:02 Freq: Status: Active Protocol: Document 01/21/21 10:36 SP (Rec: 01/21/21 11:30 SP [id number]) Out-Patient Physical Therapy Visit Information Visit Information Visit Type Treatment Note Visit Note Medicare Regence Visit Start Time 10:36 Visit Stop Time 11:20 Total Visit Minutes 44 Visit Number 12 Number of PLANT ATTENDANT Visits 1 Evaluation Information Evaluation Date 12/15/20 Precautions Precautions Port right UE, dialysis on Tu and Sat, recent infection left 3rd finger 12/29/20: Pt states that she was put on heart monitor for 10 days starting yesterday: EF 30 % in July 2021, EF 53% in October 2020 and reports of a- fib found in October 2020. She denies light-headedness and passing out. Today, pt does state that she is Jehovah Witness and this may contribute to treatments received medically PT-OP-B Current Condition Start: 11/25/20 14:02 Freq: Status: Active Protocol: Document 12/15/20 13:46 MB (Rec: 12/15/20 14:10 MB [id number]) Current Condition History of Current Condition Onset Date Long history of imbalance, worse since hospitalization in July Current Complaints Weakness, imbalance History of Current Condition In July, pt was hospitalized, had [place], cardiomyopathy, pulmonary edema, bowel issues and sepsis . She was ventilated and had dialysis. She was hospitalized twice in July. She later had pancreatitis and was hospitalized in October once for five days. She just got off an antibiotic and her gut is better. Pt did inpatient PT in [place] for 12 days and then had HHPT and OT in 10/17. Pt is concerned about her strength and balance and she would like to increase stamina . Last fall was in 06/15. She has a large scar over her right eyebrow from that fall. She had a near fall more recently and her daughter caught her. Her foot slid under a step. Daughter reports concern about conversation about Hospice that occurred at last PCP visit. She states that the conversation upset her and the patient was depressed the next day. She states that the patient's labs are improving with dialysis and pt states she does have trouble with her calcium levels. Savita, daughter, lives with patient and there are 4 steps and 2 rails to enter. She has a hurrycane, RW, rollator, shower chair, lift recliner and hospital bed. She is sleeping in a regular flat bed with handle. Savita is nearby for safety for bathing. She has suction handbars and removable shower head. Further PMH: back pain, right wrist peripheral vein blood clot and pt is on Plavix, bruises easily, pt is on dialysis 2x/week, OP, shingles , SOB, vision and hearing issues, scleroderma, Crest Syndrome. Socially, pt's sister with whom she lived, 08/10/20 when the pt was hospitalized. Prior Treatments and Tests Hospitalizations, PT, dialysis Treatment Goals Patient/Caregiver Goals To increase strength, balance and endurance PT-OP-C Subjective Start: 11/25/20 14:02 Freq: Status: Active Protocol: Document 01/21/21 10:36 SP (Rec: 01/21/21 11:30 SP [id number]) OP-PT Subjective Patient Comments Patient Comments Pt stated slept the best last night than in a long time but still feeling tired today. PT-OP-D Balance Start: 11/25/20 14:02 Freq: Status: Active Protocol: Document 12/15/20 13:46 MB (Rec: 12/15/20 16:38 MB [id number]) OP-PT Balance Assessment Sitting Balance Static Sitting Balance Ability Good Dynamic Sitting Balance Ability Fair Sitting Balance Comments UE support for scooting in the chair Standing Balance Static Standing Balance Ability Fair Dynamic Standing Balance Ability Fair Device Used Hurrycane Standing Balance Comments Superv for static and dynamic standing balance today, see comments under gait for postural changes with standing . Further balance testing in future treatments. Khan Fall Scale Copyright Permission PT-OP-G Mobility & Gait Start: 11/25/20 14:02 Freq: Status: Active Protocol: Document 12/15/20 13:46 MB (Rec: 12/15/20 16:38 MB [id number]) OP Gait Assessment Gait Gait Assistance Required: Standby Assistance Distance (Feet) 50 Able to Maintain Weight Bearing Status Yes During Gait Assistive Devices Assistive Device Straight Cane Orthotic/Prosthetic Devices or Brace: No Gait Deviations General Gait Pattern Decreased Stride Length, Decreased Feet Clearance, Flexed Trunk,Narrow Based Gait Factors Limiting Gait Function Factors Limiting Gait Function Decreased Activity Tolerance, Decreased Strength,Poor Balance Comments Gait Comments Pt gait trains with hurrycane in her right hand. She presents with functional left foot drop and left shoulder low with gait, narrow SAIDA and decreased power through RLE as well. Gait is slow and hesitant. PT-OP-J Posture/Palpation/Skin Start: 11/25/20 14:02 Freq: Status: Active Protocol: Document 12/15/20 13:46 MB (Rec: 12/15/20 16:38 MB [id number]) Posture Evaluation Comments Posture Comments Forward posture, rounded shoulders with left shoulder lower than the right, pt holding hurrycane in right hand PT-OP-K Range of Motion Start: 11/25/20 14:02 Freq: Status: Active Protocol: Document 12/15/20 13:46 MB (Rec: 12/15/20 16:38 MB [id number]) Shoulder Goniometric Range of Motion Shoulder ROM Limitations Comments B shoulder flexion to 90 deg: functional weakness with elevating both arms Wrist Goniometric Range of Motion ROM Limitations Comments All fingers have joint changes in setting of Crest syndrome, scleroderma and Raynaud's. Left 3rd finger with bandaid on DIP and she reports recent infection Hip Goniometric Range of Motion Hip ROM Limitations Comments Hip flexion in sitting is weak with active movement and pt has to work to keep left hip flexed to prepare for MMT: does not clear B thighs off chair Ankle and Foot Goniometric Range of Motion Ankle and Foot ROM Limitations Comments Functional foot drop on the left with gait Toe Range of Motion Toes ROM Limitations Comments Pt reports ingrown toe nail right great toe and gout with ecchymosis left first MTP joint PT-OP-M Strength Start: 11/25/20 14:02 Freq: Status: Active Protocol: Document 12/15/20 13:46 MB (Rec: 12/15/20 16:38 MB [id number]) Shoulder Strength Shoulder Manual Muscle Testing Left Flexion 3- Fair- Abduction (C5) 3 Fair Right Flexion 3- Fair- Abduction (C5) 3 Fair Elbow/Forearm Strength Elbow and Forearm Manual Muscle Testing Left Flexion (C6) 3+ Fair+ Extension (C7) 4 Good Right Flexion (C6) 3+ Fair+ Extension (C7) 4 Good Hip Strength Hip Manual Muscle Testing Left Flexion (L2) 2+ Poor+ Right Flexion (L2) 3- Fair- Knee Strength Knee Manual Muscle Testing Left Flexion (S2) 3- Fair- Extension (L3) 3- Fair- Right Flexion (S2) 3+ Fair+ Extension (L3) 3+ Fair+ Ankle/Foot Strength Ankle and Foot Manual Muscle Testing Left Dorsiflexion (L4) 3 Fair Right Dorsiflexion (L4) 3+ Fair+ Toe Strength Toe Manual Muscle Testing Left Great Toe Extension 2+ Poor+ Right Great Toe Extension 3- Fair- PT-OP-Q Treatments Start: 11/25/20 14:02 Freq: Status: Active Protocol: Document 01/21/21 10:36 SP (Rec: 01/21/21 11:30 SP [id number]) Cardio Equipment Recumbent Elliptical (Biodex) Duration (Minutes) 4 Resistance 1 Seat Position 6 Other UE/LE use: 20 SPM, 160 steps total , + SOB Therapeutic Exercises Sitting Exercises diaphramatic breathing Resistance provided hand out Equipment Used hands on belly Reps/Minutes 5 reps during tx to decrease + SOB Comments decreased breath rate post activities:biodex, sit<>stands , walking Sit to stands Reps/Minutes 8.5 reps in 30 Gait Training Gait Activity stair mgt Description alternating BLE Device Used SPC inRUE, LHR Level of Assistance S Surface 3 stairs x2 sets Treatment Focus foot clearance, stability, safety squencing SPC 6mwt Device Used 4WW Level of Assistance S Surface level Treatment Focus functional strengthening, endurance gait Comments Pt gait trains 581' feet today with rolling walker and requires 2 standing rest break , cuing x1 for DF to improved foot clearance due to catching floor when answering a question and head turn. Neuro Re-Education Treatment Balance Activities corner balance Surface firm Equipment wall at back, 4WW front contact PRN Comments 1 NBOS: head turns, EC 30 2. Stagger: head turns 3. tandem: stationary 30 R foot forward, 12 L foot forward. PT-OP-T Assessment and Plan Start: 11/25/20 14:02 Freq: Status: Active Protocol: Document 01/21/21 10:36 SP (Rec: 01/21/21 11:30 SP [id number]) Physical Therapy Assessment Goals Five Ventilation Equipment Tender Goal (LTG) Pt will perform progressive HEP with superv including strengthening, balance, posture and gait exercises to improve strength, gait and safety by 03/21/21. 01/21/21: LAQ, FF over head, sit to stands, standing balance back to wall/ 4ww front NBOS, stagger, diaphramatic breath. LTG Duration 8 weeks Four Ventilation Equipment Tender Goal (LTG) Pt will perform at least 10 reps sit to stand with or without UE support in 30 sec to reflect improved functional strength by 03/21/21. 01/21/21: Pt performs 8.5 reps sit to stand with light UE support in 30 sec LTG Duration 8 weeks Three Ventilation Equipment Tender Goal (LTG) Pt will deny falls for 2 months to decrease risk of injury by 03/21/21. 01/19/21: Pt denies falls since starting PT LTG Duration 8 weeks Two Ventilation Equipment Tender Goal (LTG) Pt will gait train at least 1000 feet in 6 minutes with LRAD to improve community ambulation by 03/21/21. 01/19/21: HR and O2 sats left index before gait: 89% and 78 BPM. Pt does present with LIRA. She gait trains 618 feet in 6 minutes with her rollator and 2 standing rest breaks. O2 sats and HR after treatment are not able to read well: history of Raynauld's with blueish and cool fingers. LTG Duration 8 weeks One Assisted Goal (LTG) Pt will perform WNLs on a standardized balance test to decrease fall risk by 03/21/21. 01/14/21: DGI=17/24 no AD, TUG 13.04 sec no AD LTG Duration 8 weeks Assessment Summary Assessment Pt increased breath rate during biodex, sit<>stands, gait today unable to get SaO2 reading to Raynaud's Syndrome. Normal BP 138/58 post biodex. Initiated diaphramatic breath today with improvement in decrease breath rate. Pt required 2 stand rest during gait and extra time seated rest breaks between activities today. Stair mgt reassessed L HR and SPC in RUE with cue x1 for slower pace receiprocal patternign for advancement of SPC safety and stability. Requested pt bring in folder, forgot today. Physical Therapy Plan Frequency and Duration Frequency of Treatment 2x/Week Duration of Treatment 8 weeks Plan of Care Start Date 01/19/21 Plan of Care End Date 07/26/21 Therapeutic Interventions Therapeutic Interventions Balance Training,Canalithic Repositioning,Coordination Training,Gait Training,Home Exercise Program,Joint Mobilizations,Manual Therapy, Neuromuscular Re-education, Patient/Caregiver Education, Self-Care/Home Management,Soft Tissue Mobilization,Taping, Therapeutic Activities, Therapeutic Exercises Modalities Hot Packs Next Visit Focus/Plan Next Note Type Treatment Note Next Visit Plan Continue pt goals functional strengthening, balance and endurance. POC: Review her HEP, pt to bring in folder
--- NOTE | 2021-01-26 13:48 | PT.OTN ---
Current Diagnoses Other abnormalities of gait and mobility (01/26/21) Physical Therapy Treatment Note PT-OP-A Visit Information Start: 11/25/20 14:02 Freq: Status: Active Protocol: Document 01/26/21 13:03 MB (Rec: 01/26/21 13:47 MB [id number]) Out-Patient Physical Therapy Visit Information Visit Information Visit Type Treatment Note Visit Note Medicare Nina Visit Start Time 13:03 Visit Stop Time 13:45 Total Visit Minutes 42 Visit Number 13 Precautions Precautions Port right UE, dialysis on and Sun, recent infection left 3rd finger 12/29/20: Pt states that she was put on heart monitor for 10 days starting yesterday: EF 30 % in July 2021, EF 53% in October 2020 and reports of a- fib found in October 2020. She denies light-headedness and passing out. Today, pt does state that she is Jehovah Witness and this may contribute to treatments received medically PT-OP-B Current Condition Start: 11/25/20 14:02 Freq: Status: Active Protocol: Document 12/15/20 13:46 MB (Rec: 12/15/20 14:10 MB [id number]) Current Condition History of Current Condition Onset Date Long history of imbalance, worse since hospitalization in July Current Complaints Weakness, imbalance History of Current Condition In July, pt was hospitalized, had [place], cardiomyopathy, pulmonary edema, bowel issues and sepsis . She was ventilated and had dialysis. She was hospitalized twice in July. She later had pancreatitis and was hospitalized in October once for five days. She just got off an antibiotic and her gut is better. Pt did inpatient PT in [place] for 12 days and then had HHPT and OT in 10/17. Pt is concerned about her strength and balance and she would like to increase stamina . Last fall was in 06/15. She has a large scar over her right eyebrow from that fall. She had a near fall more recently and her daughter caught her. Her foot slid under a step. Daughter reports concern about conversation about Hospice that occurred at last PCP visit. She states that the conversation upset her and the patient was depressed the next day. She states that the patient's labs are improving with dialysis and pt states she does have trouble with her calcium levels. Savita, daughter, lives with patient and there are 4 steps and 2 rails to enter. She has a hurrycane, RW, rollator, shower chair, lift recliner and hospital bed. She is sleeping in a regular flat bed with handle. Savita is nearby for safety for bathing. She has suction handbars and removable shower head. Further PMH: back pain, right wrist peripheral vein blood clot and pt is on Plavix, bruises easily, pt is on dialysis 2x/week, OP, shingles , SOB, vision and hearing issues, scleroderma, Crest Syndrome. Socially, pt's sister with whom she lived, 08/10/20 when the pt was hospitalized. Prior Treatments and Tests Hospitalizations, PT, dialysis Treatment Goals Patient/Caregiver Goals To increase strength, balance and endurance PT-OP-C Subjective Start: 11/25/20 14:02 Freq: Status: Active Protocol: Document 01/26/21 13:03 MB (Rec: 01/26/21 13:47 MB [id number]) OP-PT Subjective Patient Comments Patient Comments Pt states that she has been feeling off a couple of days and has been SOB such as when walking into the clinic. In the morning, her legs feel really heavy and unable to move. PT-OP-D Balance Start: 11/25/20 14:02 Freq: Status: Active Protocol: Document 12/15/20 13:46 MB (Rec: 12/15/20 16:38 MB [id number]) OP-PT Balance Assessment Sitting Balance Static Sitting Balance Ability Good Dynamic Sitting Balance Ability Fair Sitting Balance Comments UE support for scooting in the chair Standing Balance Static Standing Balance Ability Fair Dynamic Standing Balance Ability Fair Device Used Hurrycane Standing Balance Comments Superv for static and dynamic standing balance today, see comments under gait for postural changes with standing . Further balance testing in future treatments. Khan Fall Scale Copyright Permission PT-OP-G Mobility & Gait Start: 11/25/20 14:02 Freq: Status: Active Protocol: Document 12/15/20 13:46 MB (Rec: 12/15/20 16:38 MB [id number]) OP Gait Assessment Gait Gait Assistance Required: Standby Assistance Distance (Feet) 50 Able to Maintain Weight Bearing Status Yes During Gait Assistive Devices Assistive Device Straight Cane Orthotic/Prosthetic Devices or Brace: No Gait Deviations General Gait Pattern Decreased Stride Length, Decreased Feet Clearance, Flexed Trunk,Narrow Based Gait Factors Limiting Gait Function Factors Limiting Gait Function Decreased Activity Tolerance, Decreased Strength,Poor Balance Comments Gait Comments Pt gait trains with hurrycane in her right hand. She presents with functional left foot drop and left shoulder low with gait, narrow SAIDA and decreased power through RLE as well. Gait is slow and hesitant. PT-OP-J Posture/Palpation/Skin Start: 11/25/20 14:02 Freq: Status: Active Protocol: Document 12/15/20 13:46 MB (Rec: 12/15/20 16:38 MB [id number]) Posture Evaluation Comments Posture Comments Forward posture, rounded shoulders with left shoulder lower than the right, pt holding hurrycane in right hand PT-OP-K Range of Motion Start: 11/25/20 14:02 Freq: Status: Active Protocol: Document 12/15/20 13:46 MB (Rec: 12/15/20 16:38 MB [id number]) Shoulder Goniometric Range of Motion Shoulder ROM Limitations Comments B shoulder flexion to 90 deg: functional weakness with elevating both arms Wrist Goniometric Range of Motion ROM Limitations Comments All fingers have joint changes in setting of Crest syndrome, scleroderma and Raynaud's. Left 3rd finger with bandaid on DIP and she reports recent infection Hip Goniometric Range of Motion Hip ROM Limitations Comments Hip flexion in sitting is weak with active movement and pt has to work to keep left hip flexed to prepare for MMT: does not clear B thighs off chair Ankle and Foot Goniometric Range of Motion Ankle and Foot ROM Limitations Comments Functional foot drop on the left with gait Toe Range of Motion Toes ROM Limitations Comments Pt reports ingrown toe nail right great toe and gout with ecchymosis left first MTP joint PT-OP-M Strength Start: 11/25/20 14:02 Freq: Status: Active Protocol: Document 12/15/20 13:46 MB (Rec: 12/15/20 16:38 MB [id number]) Shoulder Strength Shoulder Manual Muscle Testing Left Flexion 3- Fair- Abduction (C5) 3 Fair Right Flexion 3- Fair- Abduction (C5) 3 Fair Elbow/Forearm Strength Elbow and Forearm Manual Muscle Testing Left Flexion (C6) 3+ Fair+ Extension (C7) 4 Good Right Flexion (C6) 3+ Fair+ Extension (C7) 4 Good Hip Strength Hip Manual Muscle Testing Left Flexion (L2) 2+ Poor+ Right Flexion (L2) 3- Fair- Knee Strength Knee Manual Muscle Testing Left Flexion (S2) 3- Fair- Extension (L3) 3- Fair- Right Flexion (S2) 3+ Fair+ Extension (L3) 3+ Fair+ Ankle/Foot Strength Ankle and Foot Manual Muscle Testing Left Dorsiflexion (L4) 3 Fair Right Dorsiflexion (L4) 3+ Fair+ Toe Strength Toe Manual Muscle Testing Left Great Toe Extension 2+ Poor+ Right Great Toe Extension 3- Fair- PT-OP-Q Treatments Start: 11/25/20 14:02 Freq: Status: Active Protocol: Document 01/26/21 13:03 MB (Rec: 01/26/21 13:47 MB [id number]) Cardio Equipment Recumbent Elliptical ([employer]) Duration (Minutes) 10 Resistance 1 Seat Position 10 Other UE and LE use. See vitals before and after below Therapeutic Exercises Sitting Exercises diaphramatic breathing Comments Pt performs in sitting, 5 reps , cues LAQ with band Side bilateral Comments Looped band around ankles, 10 reps alternating Hip abduction/clam with band Side bilateral Comments Yellow looped band around knees, 10 reps slowly, glutes squeezed Thoracic rotation Side bilateral Comments 5 reps slowly, breath end- range Gait Training Gait Activity 2 Comments Pt with flexed posture, increased effort with short gait trials: 50' x1, 30' x1, 100'x1 out of clinic gym to van and PT assists with door and rollator PT-OP-T Assessment and Plan Start: 11/25/20 14:02 Freq: Status: Active Protocol: Document 01/26/21 13:03 MB (Rec: 01/26/21 13:47 MB [id number]) Physical Therapy Assessment Rehab Potential Rehabilitation Potential Fair Impairments Impairments Activity Tolerance,Balance, Edema,Functional Activities, Functional Mobility,Gait, Posture,ROM,Strength,Transfers Other Concerns Fall Risk Yes Goals Five Residential Goal (LTG) Pt will perform progressive HEP with superv including strengthening, balance, posture and gait exercises to improve strength, gait and safety by 03/21/21. 01/19/21: LAQ, FF over head, sit to stands. LTG Duration 8 weeks Four Residential Goal (LTG) Pt will perform at least 10 reps sit to stand with or without UE support in 30 sec to reflect improved functional strength by 03/21/21. 01/19/21: Pt performs 8 reps sit to stand with light UE support in 30 sec LTG Duration 8 weeks Three Residential Goal (LTG) Pt will deny falls for 2 months to decrease risk of injury by 03/21/21. 01/19/21: Pt denies falls since starting PT LTG Duration 8 weeks Two Soap Inspector Goal (LTG) Pt will gait train at least 1000 feet in 6 minutes with LRAD to improve community ambulation by 03/21/21. 01/19/21: HR and O2 sats left index before gait: 89% and 78 BPM. Pt does present with LIRA. She gait trains 618 feet in 6 minutes with her rollator and 2 standing rest breaks. O2 sats and HR after treatment are not able to read well: history of Raynauld's with blueish and cool fingers. LTG Duration 8 weeks One Soap Inspector Goal (LTG) Pt will perform WNLs on a standardized balance test to decrease fall risk by 03/21/21. 01/14/21: DGI= no AD, TUG 13.04 sec no AD LTG Duration 8 weeks Assessment Summary Assessment BP and HR LUE before Biodex: 118/56, 75. Pt states that she has been SOB for a couple of days and spoke with her doctor and she will have a chest x- ray after PT treatment. Her fingers are blueish and cooler today and so O2 sats unable to be checked accurately. She states that the doctor wondered if she had fractured a rib in the past d/t findings on bone scan in the last month. She has some discomfort in right ribs. Pt does not appear particularly dyspneic on Biodex and she does report 3/4 Dyspnea Scale. She denies CP. Pt reports 2/4 Dyspnea Scale after exercise on Biodex . BP and HR LUE after exercise : 109/55, 75. Pt does appear LIRA after short gait trials during PT. Will con't to monitor. Physical Therapy Plan Frequency and Duration Frequency of Treatment 2x/Week Duration of Treatment 8 weeks Plan of Care Start Date 01/19/21 Plan of Care End Date 03/21/21 Therapeutic Interventions Therapeutic Interventions Balance Training,Canalithic Repositioning,Coordination Training,Gait Training,Home Exercise Program,Joint Mobilizations,Manual Therapy, Neuromuscular Re-education, Patient/Caregiver Education, Self-Care/Home Management,Soft Tissue Mobilization,Taping, Therapeutic Activities, Therapeutic Exercises Modalities Hot Packs Next Visit Focus/Plan Next Note Type Treatment Note Next Visit Plan Consider intrascapular and shoulder ER strengthening with band, balance exercises, ongoing gait training
--- NOTE | 2021-01-28 13:46 | PT.OTN ---
Current Diagnoses Other abnormalities of gait and mobility (01/28/21) Physical Therapy Treatment Note PT-OP-A Visit Information Start: 11/25/20 14:02 Freq: Status: Active Protocol: Document 01/28/21 13:00 MB (Rec: 01/28/21 13:39 MB [id number]) Out-Patient Physical Therapy Visit Information Visit Information Visit Type Treatment Note Visit Note Medicare Nina Rib x-ray revealed small right pleural effusion and suspect bibasilar ateletasis Visit Start Time 13:00 Visit Stop Time 13:40 Total Visit Minutes 40 Visit Number 14 Precautions Precautions Port right UE, dialysis on and Sat, recent infection left 3rd finger 12/29/20: Pt states that she was put on heart monitor for 10 days starting yesterday: EF 30 % in July 2021, EF 53% in October 2020 and reports of a- fib found in October 2020. She denies light-headedness and passing out. Today, pt does state that she is Jehovah Witness and this may contribute to treatments received medically PT-OP-B Current Condition Start: 11/25/20 14:02 Freq: Status: Active Protocol: Document 12/15/20 13:46 MB (Rec: 12/15/20 14:10 MB [id number]) Current Condition History of Current Condition Onset Date Long history of imbalance, worse since hospitalization in July Current Complaints Weakness, imbalance History of Current Condition In July, pt was hospitalized, had [place], cardiomyopathy, pulmonary edema, bowel issues and sepsis . She was ventilated and had dialysis. She was hospitalized twice in July. She later had pancreatitis and was hospitalized in October once for five days. She just got off an antibiotic and her gut is better. Pt did inpatient PT in [place] for 12 days and then had HHPT and OT in 10/17. Pt is concerned about her strength and balance and she would like to increase stamina . Last fall was in 06/15. She has a large scar over her right eyebrow from that fall. She had a near fall more recently and her daughter caught her. Her foot slid under a step. Daughter reports concern about conversation about Hospice that occurred at last PCP visit. She states that the conversation upset her and the patient was depressed the next day. She states that the patient's labs are improving with dialysis and pt states she does have trouble with her calcium levels. Savita, daughter, lives with patient and there are 4 steps and 2 rails to enter. She has a hurrycane, RW, rollator, shower chair, lift recliner and hospital bed. She is sleeping in a regular flat bed with handle. Savita is nearby for safety for bathing. She has suction handbars and removable shower head. Further PMH: back pain, right wrist peripheral vein blood clot and pt is on Plavix, bruises easily, pt is on dialysis 2x/week, OP, shingles , SOB, vision and hearing issues, scleroderma, Crest Syndrome. Socially, pt's sister with whom she lived, 08/10/20 when the pt was hospitalized. Prior Treatments and Tests Hospitalizations, PT, dialysis Treatment Goals Patient/Caregiver Goals To increase strength, balance and endurance PT-OP-C Subjective Start: 11/25/20 14:02 Freq: Status: Active Protocol: Document 01/28/21 13:00 MB (Rec: 01/28/21 13:39 MB [id number]) OP-PT Subjective Patient Comments Patient Comments Pt states that she feels a little better. She got her chest/rib x-ray PT-OP-D Balance Start: 11/25/20 14:02 Freq: Status: Active Protocol: Document 12/15/20 13:46 MB (Rec: 12/15/20 16:38 MB [id number]) OP-PT Balance Assessment Sitting Balance Static Sitting Balance Ability Good Dynamic Sitting Balance Ability Fair Sitting Balance Comments UE support for scooting in the chair Standing Balance Static Standing Balance Ability Fair Dynamic Standing Balance Ability Fair Device Used Hurrycane Standing Balance Comments Superv for static and dynamic standing balance today, see comments under gait for postural changes with standing . Further balance testing in future treatments. Khan Fall Scale Copyright Permission PT-OP-G Mobility & Gait Start: 11/25/20 14:02 Freq: Status: Active Protocol: Document 12/15/20 13:46 MB (Rec: 12/15/20 16:38 MB [id number]) OP Gait Assessment Gait Gait Assistance Required: Standby Assistance Distance (Feet) 50 Able to Maintain Weight Bearing Status Yes During Gait Assistive Devices Assistive Device Straight Cane Orthotic/Prosthetic Devices or Brace: No Gait Deviations General Gait Pattern Decreased Stride Length, Decreased Feet Clearance, Flexed Trunk,Narrow Based Gait Factors Limiting Gait Function Factors Limiting Gait Function Decreased Activity Tolerance, Decreased Strength,Poor Balance Comments Gait Comments Pt gait trains with hurrycane in her right hand. She presents with functional left foot drop and left shoulder low with gait, narrow SAIDA and decreased power through RLE as well. Gait is slow and hesitant. PT-OP-J Posture/Palpation/Skin Start: 11/25/20 14:02 Freq: Status: Active Protocol: Document 12/15/20 13:46 MB (Rec: 12/15/20 16:38 MB [id number]) Posture Evaluation Comments Posture Comments Forward posture, rounded shoulders with left shoulder lower than the right, pt holding hurrycane in right hand PT-OP-K Range of Motion Start: 11/25/20 14:02 Freq: Status: Active Protocol: Document 12/15/20 13:46 MB (Rec: 12/15/20 16:38 MB [id number]) Shoulder Goniometric Range of Motion Shoulder ROM Limitations Comments B shoulder flexion to 90 deg: functional weakness with elevating both arms Wrist Goniometric Range of Motion ROM Limitations Comments All fingers have joint changes in setting of Crest syndrome, scleroderma and Raynaud's. Left 3rd finger with bandaid on DIP and she reports recent infection Hip Goniometric Range of Motion Hip ROM Limitations Comments Hip flexion in sitting is weak with active movement and pt has to work to keep left hip flexed to prepare for MMT: does not clear B thighs off chair Ankle and Foot Goniometric Range of Motion Ankle and Foot ROM Limitations Comments Functional foot drop on the left with gait Toe Range of Motion Toes ROM Limitations Comments Pt reports ingrown toe nail right great toe and gout with ecchymosis left first MTP joint PT-OP-M Strength Start: 11/25/20 14:02 Freq: Status: Active Protocol: Document 12/15/20 13:46 MB (Rec: 12/15/20 16:38 MB [id number]) Shoulder Strength Shoulder Manual Muscle Testing Left Flexion 3- Fair- Abduction (C5) 3 Fair Right Flexion 3- Fair- Abduction (C5) 3 Fair Elbow/Forearm Strength Elbow and Forearm Manual Muscle Testing Left Flexion (C6) 3+ Fair+ Extension (C7) 4 Good Right Flexion (C6) 3+ Fair+ Extension (C7) 4 Good Hip Strength Hip Manual Muscle Testing Left Flexion (L2) 2+ Poor+ Right Flexion (L2) 3- Fair- Knee Strength Knee Manual Muscle Testing Left Flexion (S2) 3- Fair- Extension (L3) 3- Fair- Right Flexion (S2) 3+ Fair+ Extension (L3) 3+ Fair+ Ankle/Foot Strength Ankle and Foot Manual Muscle Testing Left Dorsiflexion (L4) 3 Fair Right Dorsiflexion (L4) 3+ Fair+ Toe Strength Toe Manual Muscle Testing Left Great Toe Extension 2+ Poor+ Right Great Toe Extension 3- Fair- PT-OP-Q Treatments Start: 11/25/20 14:02 Freq: Status: Active Protocol: Document 01/28/21 13:00 MB (Rec: 01/28/21 13:39 MB [id number]) Cardio Equipment Recumbent Elliptical ([employer]) Duration (Minutes) 10 Resistance 1 Seat Position 9 Other UE and LE use Therapeutic Exercises Sitting Exercises LAQ with band Side bilateral Comments Level 1 band wrapped around legs, 10 reps alternating Sit to stands Comments 30 sec with light UE support: 9 reps Hip abduction/clam with band Side bilateral Comments Glute squeeze first, 10 reps Standing Exercises Shoulder ER, scapular retraction and row with elbows bent and elbows straight Side bilateral Resistance Level 1 band Comments 10 reps all exercises PT-OP-T Assessment and Plan Start: 11/25/20 14:02 Freq: Status: Active Protocol: Document 01/28/21 13:00 MB (Rec: 01/28/21 13:39 MB [id number]) Physical Therapy Assessment Rehab Potential Rehabilitation Potential Fair Impairments Impairments Activity Tolerance,Balance, Edema,Functional Activities, Functional Mobility,Gait, Posture,ROM,Strength,Transfers Other Concerns Fall Risk Yes Goals Five Powder Coater Goal (LTG) Pt will perform progressive HEP with superv including strengthening, balance, posture and gait exercises to improve strength, gait and safety by 03/21/21. 01/19/21: LAQ, FF over head, sit to stands. LTG Duration 8 weeks Four Powder Coater Goal (LTG) Pt will perform at least 10 reps sit to stand with or without UE support in 30 sec to reflect improved functional strength by 03/21/21. 01/19/21: Pt performs 8 reps sit to stand with light UE support in 30 sec LTG Duration 8 weeks Three Jail Goal (LTG) Pt will deny falls for 2 months to decrease risk of injury by 03/21/21. 01/19/21: Pt denies falls since starting PT LTG Duration 8 weeks Two Powder Coater Goal (LTG) Pt will gait train at least 1000 feet in 6 minutes with LRAD to improve community ambulation by 03/21/21. 01/19/21: HR and O2 sats left index before gait: 89% and 78 BPM. Pt does present with LIRA. She gait trains 618 feet in 6 minutes with her rollator and 2 standing rest breaks. O2 sats and HR after treatment are not able to read well: history of Raynauld's with blueish and cool fingers. LTG Duration 8 weeks One Jail Goal (LTG) Pt will perform WNLs on a standardized balance test to decrease fall risk by 03/21/21. 01/14/21: DGI=17 no AD, TUG 13.04 sec no AD LTG Duration 8 weeks Assessment Summary Assessment Pt con't with LIRA and PT cannot get a pulse ox reading d/t Raynauld's. Modified exercises again today ( theraband and balance exercises rather than gait). PT asks pt to talk with Dr. Chavez's nurse tomorrw at dialysis about SOB and x-ray results. Physical Therapy Plan Frequency and Duration Frequency of Treatment 2x/Week Duration of Treatment 8 weeks Plan of Care Start Date 01/19/21 Plan of Care End Date 03/21/21 Therapeutic Interventions Therapeutic Interventions Balance Training,Canalithic Repositioning,Coordination Training,Gait Training,Home Exercise Program,Joint Mobilizations,Manual Therapy, Neuromuscular Re-education, Patient/Caregiver Education, Self-Care/Home Management,Soft Tissue Mobilization,Taping, Therapeutic Activities, Therapeutic Exercises Modalities Hot Packs Next Visit Focus/Plan Next Note Type Treatment Note Next Visit Plan Ongoing balance exercises and gait training
--- NOTE | 2021-02-09 14:48 | PT.OTN ---
Current Diagnoses Other abnormalities of gait and mobility (02/09/21) Physical Therapy Treatment Note PT-OP-A Visit Information Start: 11/25/20 14:02 Freq: Status: Active Protocol: Document 02/09/21 13:00 MB (Rec: 02/09/21 13:44 MB [id number]) Out-Patient Physical Therapy Visit Information Visit Information Visit Type Treatment Note Visit Note Medicare Regence Visit Start Time 13:00 Visit Stop Time 13:40 Total Visit Minutes 40 Visit Number 15 Precautions Precautions Pt con't with right port for dialysis but states that she might start home dialysis, she con't with SOB PT-OP-B Current Condition Start: 11/25/20 14:02 Freq: Status: Active Protocol: Document 12/15/20 13:46 MB (Rec: 12/15/20 14:10 MB [id number]) Current Condition History of Current Condition Onset Date Long history of imbalance, worse since hospitalization in July Current Complaints Weakness, imbalance History of Current Condition In July, pt was hospitalized, had NV, cardiomyopathy, pulmonary edema, bowel issues and sepsis . She was ventilated and had dialysis. She was hospitalized twice in July. She later had pancreatitis and was hospitalized in October once for five days. She just got off an antibiotic and her gut is better. Pt did inpatient PT in [place] for 12 days and then had HHPT and OT in 10/17. Pt is concerned about her strength and balance and she would like to increase stamina . Last fall was in 06/15. She has a large scar over her right eyebrow from that fall. She had a near fall more recently and her daughter caught her. Her foot slid under a step. Daughter reports concern about conversation about Hospice that occurred at last PCP visit. She states that the conversation upset her and the patient was depressed the next day. She states that the patient's labs are improving with dialysis and pt states she does have trouble with her calcium levels. Savita, daughter, lives with patient and there are 4 steps and 2 rails to enter. She has a hurrycane, RW, rollator, shower chair, lift recliner and hospital bed. She is sleeping in a regular flat bed with handle. Savita is nearby for safety for bathing. She has suction handbars and removable shower head. Further PMH: back pain, right wrist peripheral vein blood clot and pt is on Plavix, bruises easily, pt is on dialysis 2x/week, OP, shingles , SOB, vision and hearing issues, scleroderma, Crest Syndrome. Socially, pt's sister with whom she lived, 08/10/20 when the pt was hospitalized. Prior Treatments and Tests Hospitalizations, PT, dialysis Treatment Goals Patient/Caregiver Goals To increase strength, balance and endurance PT-OP-C Subjective Start: 11/25/20 14:02 Freq: Status: Active Protocol: Document 02/09/21 13:00 MB (Rec: 02/09/21 13:44 MB [id number]) OP-PT Subjective Patient Comments Patient Comments Pt states that the radio division lieutenant had her do dialysis 3x last week and she is planning to get the catheter for home dialysis. She talked to the systems program manager office over the phone and will follow-up in the office next week. She started steroids for her gout. Pt con' t to c/o SOB. PT-OP-D Balance Start: 11/25/20 14:02 Freq: Status: Active Protocol: Document 12/15/20 13:46 MB (Rec: 12/15/20 16:38 MB [id number]) OP-PT Balance Assessment Sitting Balance Static Sitting Balance Ability Good Dynamic Sitting Balance Ability Fair Sitting Balance Comments UE support for scooting in the chair Standing Balance Static Standing Balance Ability Fair Dynamic Standing Balance Ability Fair Device Used Hurrycane Standing Balance Comments Superv for static and dynamic standing balance today, see comments under gait for postural changes with standing . Further balance testing in future treatments. Khan Fall Scale Copyright Permission PT-OP-G Mobility & Gait Start: 11/25/20 14:02 Freq: Status: Active Protocol: Document 12/15/20 13:46 MB (Rec: 12/15/20 16:38 MB [id number]) OP Gait Assessment Gait Gait Assistance Required: Standby Assistance Distance (Feet) 50 Able to Maintain Weight Bearing Status Yes During Gait Assistive Devices Assistive Device Straight Cane Orthotic/Prosthetic Devices or Brace: No Gait Deviations General Gait Pattern Decreased Stride Length, Decreased Feet Clearance, Flexed Trunk,Narrow Based Gait Factors Limiting Gait Function Factors Limiting Gait Function Decreased Activity Tolerance, Decreased Strength,Poor Balance Comments Gait Comments Pt gait trains with hurrycane in her right hand. She presents with functional left foot drop and left shoulder low with gait, narrow SAIDA and decreased power through RLE as well. Gait is slow and hesitant. PT-OP-J Posture/Palpation/Skin Start: 11/25/20 14:02 Freq: Status: Active Protocol: Document 12/15/20 13:46 MB (Rec: 12/15/20 16:38 MB [id number]) Posture Evaluation Comments Posture Comments Forward posture, rounded shoulders with left shoulder lower than the right, pt holding hurrycane in right hand PT-OP-K Range of Motion Start: 11/25/20 14:02 Freq: Status: Active Protocol: Document 12/15/20 13:46 MB (Rec: 12/15/20 16:38 MB [id number]) Shoulder Goniometric Range of Motion Shoulder ROM Limitations Comments B shoulder flexion to 90 deg: functional weakness with elevating both arms Wrist Goniometric Range of Motion ROM Limitations Comments All fingers have joint changes in setting of Crest syndrome, scleroderma and Raynaud's. Left 3rd finger with bandaid on DIP and she reports recent infection Hip Goniometric Range of Motion Hip ROM Limitations Comments Hip flexion in sitting is weak with active movement and pt has to work to keep left hip flexed to prepare for MMT: does not clear B thighs off chair Ankle and Foot Goniometric Range of Motion Ankle and Foot ROM Limitations Comments Functional foot drop on the left with gait Toe Range of Motion Toes ROM Limitations Comments Pt reports ingrown toe nail right great toe and gout with ecchymosis left first MTP joint PT-OP-M Strength Start: 11/25/20 14:02 Freq: Status: Active Protocol: Document 12/15/20 13:46 MB (Rec: 12/15/20 16:38 MB [id number]) Shoulder Strength Shoulder Manual Muscle Testing Left Flexion 3- Fair- Abduction (C5) 3 Fair Right Flexion 3- Fair- Abduction (C5) 3 Fair Elbow/Forearm Strength Elbow and Forearm Manual Muscle Testing Left Flexion (C6) 3+ Fair+ Extension (C7) 4 Good Right Flexion (C6) 3+ Fair+ Extension (C7) 4 Good Hip Strength Hip Manual Muscle Testing Left Flexion (L2) 2+ Poor+ Right Flexion (L2) 3- Fair- Knee Strength Knee Manual Muscle Testing Left Flexion (S2) 3- Fair- Extension (L3) 3- Fair- Right Flexion (S2) 3+ Fair+ Extension (L3) 3+ Fair+ Ankle/Foot Strength Ankle and Foot Manual Muscle Testing Left Dorsiflexion (L4) 3 Fair Right Dorsiflexion (L4) 3+ Fair+ Toe Strength Toe Manual Muscle Testing Left Great Toe Extension 2+ Poor+ Right Great Toe Extension 3- Fair- PT-OP-Q Treatments Start: 11/25/20 14:02 Freq: Status: Active Protocol: Document 02/09/21 13:00 MB (Rec: 02/09/21 13:44 MB [id number]) Cardio Equipment Recumbent Bicycle Duration (Minutes) 14 Other No resistance added as pt with SOB with none Therapeutic Exercises Other Exercises Verbally reviewed HEP in preparation for d/c Comments Performed this today Gait Training Gait Activity Gait with RW Comments Pt requires superv to gait train with rollator throughout treatment including to outside to wait for her MALINI 6mwt Comments Pt gait trains 456 feet in 6 minutes and requires rest break. She reports 3/4 Dyspnea scale Self-Care/Home Management Treatment Education Other Education Ed pt in con't SOB/LIRA restricting her mobility and inhibiting progress towards goals. Ed pt in benefits of stopping PT at this time and her con't conserving energy for tasks that she likes at home including travel and home exercises and gait with rollator for socializing and enjoyment Called daughter, Savita, to educate her as well and repeated this to her and she is also understanding and in agreement to d/c PT at this time. Pt in agreement Ed pt and daughter to email or call PT as needed and if she feels better after any intervention from systems program manager and home dialysis, consider return to PT PT-OP-T Assessment and Plan Start: 11/25/20 14:02 Freq: Status: Active Protocol: Document 02/09/21 13:00 MB (Rec: 02/09/21 13:44 MB [id number]) Physical Therapy Assessment Rehab Potential Rehabilitation Potential Fair Evaluation Complexity Number of Personal Factors/Comorbidities 3 or More Number of Body Systems Impaired 4 or More Clinical Presentation at Evaluation Unstable Impairments Impairments Activity Tolerance,Balance, Edema,Functional Activities, Functional Mobility,Gait, Posture,ROM,Strength,Transfers Other Concerns Fall Risk Yes Goals Five Song And Dance Performer Goal (LTG) Pt will perform progressive HEP with superv including strengthening, balance, posture and gait exercises to improve strength, gait and safety by 03/21/21. 02/09/21: Progressed towards goals. LTG Duration Progressed Four Prison Goal (LTG) Pt will perform at least 10 reps sit to stand with or without UE support in 30 sec to reflect improved functional strength by 03/21/21. 01/19/21: Pt performs 8 reps sit to stand with light UE support in 30 sec LTG Duration Progressed Three Prison Goal (LTG) Pt will deny falls for 2 months to decrease risk of injury by 03/21/21. 01/19/21: Pt denies falls since starting PT LTG Duration Met Two Prison Goal (LTG) Pt will gait train at least 1000 feet in 6 minutes with LRAD to improve community ambulation by 03/21/21. 02/09/21: Pt has not progressed towards 6MWT goal and gait trains 456 feet today with one sitting break LTG Duration Not met One Song And Dance Performer Goal (LTG) Pt will perform WNLs on a standardized balance test to decrease fall risk by 03/21/21. 01/14/21: DGI= no AD, TUG 13.04 sec no AD LTG Duration Progressed Assessment Summary Assessment Pt con't with LIRA. PT cannot get pulse ox reading when tried today (pt with Raynauld' s). Her LIRA con't to restrict ability to progress exercises, gait and balance with PT. After speaking with pt and daughter, all agree to d/c PT at this time. Did encourage them to seek another PT referral if she does better after any intervention from her systems program manager or once she starts dialysis at home. Physical Therapy Plan Frequency and Duration Frequency of Treatment 2x/Week Duration of Treatment 8 weeks Plan of Care Start Date 01/19/21 Plan of Care End Date 03/21/21 Therapeutic Interventions Therapeutic Interventions Balance Training,Canalithic Repositioning,Coordination Training,Gait Training,Home Exercise Program,Joint Mobilizations,Manual Therapy, Neuromuscular Re-education, Patient/Caregiver Education, Self-Care/Home Management,Soft Tissue Mobilization,Taping, Therapeutic Activities, Therapeutic Exercises Modalities Hot Packs
== END 2021-02-09 15:25 | disposition home or self-care (01) ==
LOC: PHYS 13:00
PROVIDERS: Family Provider Family Medicine; PCP Family Medicine; Referring Provider Family Medicine; Visit Provider Family Medicine
DX: R26.89 Other abnormalities of gait and mobility (principal)
CPT/HCPCS: 97110; 97112; 97116; 97163; 97535

== ENCOUNTER → 2021-03-01 10:02 | Outpatient (CLI) | payer MEDICARE, OTHER, SELFPAY | PROVIDERS: Family Provider Family Medicine; PCP Family Medicine; Referring Provider Family Medicine; Visit Provider Family Medicine | DX: S61.200A Unspecified open wound of right index finger without damage to nail, initial encounter (principal); M34.1 CR(E)ST syndrome; Z99.2 Dependence on renal dialysis | CPT/HCPCS: 97597; 99213; 99214 ==

== ENCOUNTER → 2021-03-01 10:26 | Outpatient (CLI) | payer MEDICARE, OTHER, SELFPAY ==
--- NOTE | 2021-03-01 | DI.RAD.S_ITS ---
PROCEDURE: XR FINGER RT MIN 2V INDICATIONS: Unspecified open wound of right index finger without damage TECHNIQUE: AP hand, 2 views of the right finger(s) acquired. COMPARISON: [facility], CR, XR FINGER RT MIN 2V, 10/21/2020, 11:02. FINDINGS: Bones: Patchy decreased mineralization. There is joint space loss at the 2nd metacarpal phalangeal and 1st carpometacarpal joint. There is slight flattening and cortex loss along the distal 3rd phalanx tuft. There are tiny polypoid dystrophic calcifications arising from the tuft of the 2nd distal phalanx and adjacent to the 2nd middle phalanx. Soft tissues: There is tissue loss at the distal end of the thyroid, and to lesser extent 2nd phalanx. No radiodense foreign body.. IMPRESSION: 1. Osseous remodeling and tissue loss at the distal 3rd phalanx suggesting chronic, healed osteomyelitis. 2. There are similar dystrophic calcifications around the 2nd distal phalanx, questionable tissue loss, but no other appreciable change compared to the prior study. 3. Osteopenia. 4. Scattered joint space loss, particularly 1st CMC and 2nd MCP. Dictated by: Eileen Stone M.D. on 03/01/2021 at 16:09 Approved by: Eileen Stone M.D. on 03/01/2021 at 16:14
== END ==
PROVIDERS: Family Provider Family Medicine; PCP Family Medicine; Referring Provider Family Medicine; Visit Provider Family Medicine
DX: S61.200A Unspecified open wound of right index finger without damage to nail, initial encounter (principal); M85.841 Other specified disorders of bone density and structure, right hand; X58.XXXA Exposure to other specified factors, initial encounter; M34.1 CR(E)ST syndrome; Z99.2 Dependence on renal dialysis
CPT/HCPCS: 73140; 97597; 99213

== ENCOUNTER → 2021-03-09 09:09 | Outpatient (CLI) | payer MEDICARE, OTHER, SELFPAY | PROVIDERS: Family Provider Family Medicine; PCP Family Medicine; Referring Provider Family Medicine; Visit Provider Family Medicine | DX: S61.200A Unspecified open wound of right index finger without damage to nail, initial encounter (principal); M34.1 CR(E)ST syndrome; Z99.2 Dependence on renal dialysis | CPT/HCPCS: 97597 ==

== ENCOUNTER → 2021-03-16 09:36 | Outpatient (CLI) | payer MEDICARE, OTHER, SELFPAY | PROVIDERS: Family Provider Family Medicine; PCP Family Medicine; Referring Provider Family Medicine; Visit Provider Family Medicine | DX: S61.200A Unspecified open wound of right index finger without damage to nail, initial encounter (principal); M34.1 CR(E)ST syndrome; Z99.2 Dependence on renal dialysis | CPT/HCPCS: 99212; 99213 ==

== ENCOUNTER → 2021-03-23 08:40 | Outpatient (CLI) | payer MEDICARE, OTHER, SELFPAY | PROVIDERS: Family Provider Family Medicine; PCP Family Medicine; Referring Provider Family Medicine; Visit Provider Family Medicine | DX: M34.1 CR(E)ST syndrome (principal); I73.00 Raynaud's syndrome without gangrene | CPT/HCPCS: 99212; 99213 ==

== ENCOUNTER → 2021-04-04 10:21 | Outpatient (CLI) | payer MEDICARE, OTHER, SELFPAY | PROVIDERS: Family Provider Family Medicine; PCP Family Medicine; Referring Provider Family Medicine; Visit Provider Family Medicine | DX: S61.200A Unspecified open wound of right index finger without damage to nail, initial encounter (principal); M34.1 CR(E)ST syndrome; Z99.2 Dependence on renal dialysis; L08.9 Local infection of the skin and subcutaneous tissue, unspecified | CPT/HCPCS: 87070; 87075; 87077; 87186; 87205; 97597; 99213; 99214 ==

== ENCOUNTER → 2021-04-07 11:42 | Outpatient (CLI) | payer MEDICARE, OTHER, SELFPAY ==
--- NOTE | 2021-04-07 11:47 | DI.RAD.S_ITS ---
PROCEDURE: XR HAND RT MIN 3V INDICATIONS: OSTEOMYLITS DISTAL RT INDEX FINGER TECHNIQUE: 3 views of the hand(s) acquired. COMPARISON: [facility], CR, XR FINGER RT MIN 2V, 03/01/2021, 10:35. FINDINGS: Bones: No fractures or dislocations. Carpal bones are normally aligned. Bony lucency and cortical irregularity involving the tuft of the 2nd distal phalanx suspicious for osteomyelitis. Soft tissue calcifications of the 2nd digit again noted. Background osteoarthritic changes redemonstrated. Soft tissues: No suspicious soft tissue calcifications. IMPRESSION: Findings suspicious for osteomyelitis involving the 2nd distal tuft. Dictated by: Yusef RUSSELL Interpreted: Adolph Bhatti MD on 04/07/2021 at 13:40 Transcribed by: DEO on 04/07/2021 at 13:41 Approved by: Adolph Bhatti M.D. on 04/07/2021 at 14:10
== END ==
PROVIDERS: Family Provider Family Medicine; PCP Family Medicine; Referring Provider Family Medicine; Visit Provider Family Medicine
DX: S61.200A Unspecified open wound of right index finger without damage to nail, initial encounter (principal)
CPT/HCPCS: 73130

== ENCOUNTER → 2021-04-13 10:05 | Outpatient (CLI) | payer MEDICARE, OTHER, SELFPAY | PROVIDERS: Family Provider Family Medicine; PCP Family Medicine; Referring Provider Family Medicine; Visit Provider Family Medicine | DX: S61.200A Unspecified open wound of right index finger without damage to nail, initial encounter (principal); M34.1 CR(E)ST syndrome; Z99.2 Dependence on renal dialysis; M86.241 Subacute osteomyelitis, right hand; Z79.2 Long term (current) use of antibiotics | CPT/HCPCS: 97597; 99214 ==

== ENCOUNTER → 2021-04-27 11:49 | Outpatient (CLI) | payer MEDICARE, OTHER, SELFPAY | PROVIDERS: Family Provider Family Medicine; PCP Family Medicine; Referring Provider Family Medicine; Visit Provider Family Medicine | DX: M34.1 CR(E)ST syndrome (principal); M86.141 Other acute osteomyelitis, right hand; I73.00 Raynaud's syndrome without gangrene | CPT/HCPCS: 99213 ==

== ENCOUNTER 2021-05-03 08:38 | Emergency (ER) | payer MEDICARE, OTHER, SELFPAY ==
--- NOTE | 2021-05-03 08:56 | ED_ITS ---
HPI - General Adult General Chief complaint: Extremity Injury, Lower Stated complaint: CONCERNED ABOUT A POSS BLOOD CLOT Time Seen by Provider: 05/03/21 08:56 History of Present Illness HPI narrative: With a history of chronic kidney disease, crest syndrome, hypertension and hyperlipidemia presents concerned about a blood clot in her left lower leg after a minor injury. Her dog had bumped into her left lower leg there is a moderate hematoma that now is expanding is the hematomas being resolved. Quite a bit of ecchymosis over the ankle still with a bit of hematoma to be redistributed. Today she had significantly increased pain and is concerned that she has recurrent episode of gout involving her 1st metatarsal on the affected side. She describes increasing pain for the last 12-24 hours, difficulty walking because of the pain otherwise doing well. No fevers, cough, chills, vomiting, abdominal pain, nausea, diarrhea. Related Data Home Medications Medication Instructions Recorded Confirmed ferrous sulfate 325 mg (65 mg 325 mg PO DAILY tab 10/28/18 01/05/21 iron) tablet acetaminophen 325 mg tablet 325 mg PO Q4H PRN 06/10/19 01/05/21 diphenhydramine HCl 25 mg capsule 25 mg PO PRN PRN 06/10/19 01/05/21 melatonin 5 mg tablet 5 mg PO BEDTIME PRN 03/25/20 01/05/21 pentoxifylline 400 mg 400 mg PO DAILY tab 11/23/20 01/05/21 tablet,extended release B complex-vitamin C-folic acid 1 tab PO DAILY 01/05/21 01/05/21 [Dialyvite] Probiotic 1 cap PO DAILY 01/05/21 aspirin 325 mg tablet 325 mg PO DAILY 01/05/21 01/05/21 epoetin toire-epbx 10,000 unit/mL 7,500 unit SUBCUT 3XW ml 01/05/21 01/05/21 injection solution (Retacrit) lansoprazole 15 mg capsule,delayed 15 mg PO BID cap 01/05/21 01/05/21 release (Prevacid) sennosides 8.6 mg tablet (senna) 8.6 mg PO BID 01/05/21 01/05/21 Previous Rx's Medication Instructions Recorded atorvastatin 10 mg tablet 10 mg PO BEDTIME #90 tab 10/09/20 metoprolol tartrate 25 mg tablet 25 mg PO BID #180 tab 10/09/20 nifedipine 90 mg tablet,extended 90 mg PO QPM #90 tab 10/09/20 release 24 hr sildenafil (pulm.hypertension) 20 20 mg PO TID #270 tab 10/09/20 mg tablet alprazolam 0.25 mg tablet 0.125 mg PO BID PRN #30 tab 10/15/20 ondansetron 4 mg disintegrating 4 mg PO Q8H PRN #30 tab 11/23/20 tablet Allergies Allergy/AdvReac Type Severity Reaction Status Date / Time carrot [CARROT] Allergy Severe EYES SWELL Verified 01/05/21 11:23 clindamycin [CLINDAMYCIN] AdvReac Severe DIARRHEA Verified 01/05/21 11:23 doxycycline AdvReac Severe Made her Verified 01/05/21 11:30 very nauseous/affected appetite Review of Systems Review of Systems Narrative: Remainder of complete review of systems is otherwise unremarkable except for that included in the HPI. Patient History Medical History Anxiety about health Back stiffness Balance problem Cervical somatic dysfunction Chronic nausea Chronic neck pain CKD (chronic kidney disease) (Unknown) Constipation Cranial somatic dysfunction CREST syndrome (Unknown) End stage renal failure on dialysis GERD (gastroesophageal reflux disease) (Unknown) Gout Hiatal hernia with gastroesophageal reflux disease and esophagitis Hyperkalemia Hyperlipemia (Unknown) Hypertension (Unknown) Localized swelling of left forearm Nausea with vomiting Osteopenia (~04/2016) Osteoporosis (~04/2016) Pain of left great toe Raynaud's disease (Unknown) Segmental and somatic dysfunction of abdomen and other regions Segmental and somatic dysfunction of abdomen and other regions Segmental and somatic dysfunction of pelvic region Segmental and somatic dysfunction of rib cage Segmental and somatic dysfunction of sacral region Segmental and somatic dysfunction of thoracic region Somatic dysfunction of right lower extremity Upper extremity somatic dysfunction Surgical History History of cataract removal with insertion of prosthetic lens History of rectal surgery Status post breast biopsy Status post hysterectomy Status post tonsillectomy and adenoidectomy Family History Father Congestive heart failure Hypertension Mother Myocardial infarction Social History Smoking Status: Never smoker alcohol intake: current Smoking Status: Never smoker alcohol intake frequency: 0-2 drinks per day Substance Use Type: does not use Exam Narrative Exam Narrative: General: Alert appropriate in no acute distress Respiratory: Able to speak in full sentences, no obvious respiratory distress Skin: No obvious rashes, warm and dry Neurologic: Grossly intact no obvious asymmetries or abnormalities Psych: appropriate insight and affect, cooperative Extremity: Left lower extremity with hematoma over the medial portion of the distal anterior rodriguez with ecchymosis extending over the entire ankle and into t he foot. First metatarsal joint with increasing erythema and tenderness. No significant swelling differences between the 2 legs. Neurovascularly intact otherwise. Initial Vital Signs Initial Vital Signs: Vital Signs Temperature 96.7 F L 05/03/21 09:02 Pulse Rate 66 05/03/21 09:02 Respiratory Rate 14 05/03/21 09:02 Blood Pressure 125/57 L 05/03/21 09:02 Pulse Oximetry 99 05/03/21 09:02 Course Orders Ordered: Discontinued Medications Colchicine (Colchicine 0.6 Mg Tablet) 1.2 mg PO NOW ONE Stop: 05/03/21 10:13 Last Admin: 05/03/21 10:24 Dose: 1.2 mg Documented by: RICH Colchicine (Colchicine 0.6 Mg Tablet) 0.6 mg PO NOW ONE Stop: 05/03/21 11:16 Last Admin: 05/03/21 11:20 Dose: 0.6 mg Documented by: RICH Medical Decision Making [facility] Narrative Medical decision making narrative: 80-year-old woman with minor trauma and hematoma to the rodriguez and ankle left side that is healing nicely. No evidence of deep vein thrombosis. Developing gout in the left 1st metatarsal. She is given 1.2 mg of colchicine and an hour later 0.6 mg of colchicine to deal with a gout and she is discharged home. Reassurance is given questions are answered. Discharge Plan Departure Patient Disposition: Home Clinical Impression: Gout Qualifiers: Gout site: foot Gout etiology: unspecified cause Chronicity: acute Laterality: left Qualified Code(s): M10.9 - Gout, unspecified Ankle contusion Qualifiers: Encounter type: initial encounter Laterality: left Qualified Code(s): S90.02XA - Contusion of left ankle, initial encounter Instructions: Gout, DI for Contusion Activity Restrictions/Additional Instructions: Thank you for coming in today The bruise from your dog is healing nicely. There is no evidence of deep venous thrombosis. Do expect more bruising to surface, I suspect your in for at least 2 more weeks of healing. I believe the worsening pain is from your acute gout flare. In the emergency department you were given to doses of colchicine to help with the pain. You can continue to use Tylenol to help with this as well. It is okay to walk, this will help the bruising resolve more quickly. Warmth to the area can also help. Using the Pb wrap as much as your able to tolerate can also be helpful. If you find that your having more issues or different concerns, please feel free to return and I am happy to re-evaluate. Prescriptions: No Action ferrous sulfate 325 mg (65 mg iron) tablet 325 mg PO DAILY RF: 0 Hold Instructions: Home Medication placed on hold at Doctor's office metoprolol tartrate 25 mg tablet 25 mg PO BID Qty: 180 RF: 3 nifedipine 90 mg tablet extended release 24hr 90 mg PO QPM Qty: 90 RF: 3 sildenafil (pulm.hypertension) 20 mg tablet 20 mg PO TID Qty: 270 RF: 3 atorvastatin 10 mg tablet 10 mg PO BEDTIME Qty: 90 RF: 3 alprazolam 0.25 mg tablet 0.125 mg PO BID PRN (Reason: anxiety) Qty: 30 RF: 0 pentoxifylline 400 mg tablet extended release 400 mg PO DAILY RF: 0 ondansetron 4 mg tablet,disintegrating 4 mg PO Q8H PRN (Reason: nausea and vomiting) Qty: 30 RF: 3 melatonin 5 mg tablet 5 mg PO BEDTIME PRNRF: 0 aspirin 325 mg tablet 325 mg PO DAILY RF: 0 lansoprazole [Prevacid] 15 mg capsule,delayed release(DR/EC) 15 mg PO BID RF: 0 sennosides [senna] 8.6 mg tablet 8.6 mg PO BID RF: 0 B complex-vitamin C-folic acid 1 tab PO DAILY RF: 0 Retacrit 10,000 unit/mL solution 7,500 unit SUBCUT 3XW RF: 0 Probiotic 1 cap PO DAILY RF: 0 acetaminophen 325 mg Tablet 325 mg PO Q4H PRN (Reason: PAIN OR FEVER) RF: 0 diphenhydramine HCl 25 mg Capsule 25 mg PO PRN PRN (Reason: Allergy Symptoms) RF: 0 Referrals: Todd Lanza DO [Primary Care Provider] -
[2021-05-03 09:02] VITALS: BP 125/57; PULSE 66; RESP 14; TEMP 35.9; O2SAT 99; BMI 21.4
--- NOTE | 2021-05-03 09:47 | PC.NURSE ---
Pt has bruise from where her dog ran into her left lower leg. Pts feet are cool bilaterally,which is normal for her. Able to locate posterior tibial pulse with doppler.
[2021-05-03] MEDS: COLCHICINE 0.6 MG TABLET 1.2 MG PO (10:24)
[2021-05-03] MEDS: COLCHICINE 0.6 MG TABLET PO (11:20)
[2021-05-03 11:21] VITALS: BP 169/77; PULSE 53; O2SAT 96
== END 2021-05-03 11:24 | disposition home or self-care (01) ==
PROVIDERS: Emergency Provider Emergency Medicine; Family Provider Family Medicine; PCP Family Medicine
DX: M10.9 Gout, unspecified (principal); S90.02XA Contusion of left ankle, initial encounter
CPT/HCPCS: 99283

== ENCOUNTER → 2021-05-06 14:31 | Outpatient (CLI) | payer MEDICARE, OTHER, SELFPAY | PROVIDERS: Family Provider Family Medicine; PCP Family Medicine; Referring Provider Family Medicine; Visit Provider Family Medicine | DX: M86.241 Subacute osteomyelitis, right hand (principal); Z79.2 Long term (current) use of antibiotics | CPT/HCPCS: 36415; 86140 ==

== ENCOUNTER → 2021-05-09 12:37 | Outpatient (CLI) | payer MEDICARE, OTHER, SELFPAY ==
--- NOTE | 2021-05-09 12:39 | DI.MG.S_ITS ---
BILATERAL DIGITAL DIAGNOSTIC MAMMOGRAM 3D/2D: 05/09/2021 CLINICAL: Left breast lump. Due for bilateral exam. Comparison is made to exams dated: 11/18/2013 mammogram, 11/14/2012 mammogram, and 05/16/2012 mammogram - [facility]. The tissue of both breasts is predominantly fatty. There is a new 2.2 cm x 1.5 cm irregular high density mass with an indistinct margin and grouped fine amorphous dystrophic calcifications in the left breast at 11 o'clock posterior depth 8 cm from the nipple. This is seen in additional views. No other significant masses, calcifications, or other findings are seen in either breast. IMPRESSION: INCOMPLETE: NEEDS ADDITIONAL IMAGING EVALUATION The new 2.2 cm x 1.5 cm irregular high density mass in the left breast is indeterminate. An ultrasound is recommended. This exam was interpreted at Station ID: [id number]. NOTE: For mammograms, a report in lay terms will be sent to the patient. Approximately 15% of breast malignancies will not be visualized mammographically. In the management of a palpable breast mass, a negative mammogram must not discourage biopsy of a clinically suspicious lesion. Electronically Signed By: Vini Walker acr/:05/09/2021 15:06:54 Entry: - 05/10/2021 09:32:40 ACR BI-RADS Category 0: Incomplete [id number]
--- NOTE | 2021-05-09 12:46 | DI.US.S_ITS ---
ULTRASOUND OF LEFT BREAST: 05/09/2021 CLINICAL: Palpable left breast lump. Comparison is made to exams dated: 05/09/2021 mammogram, 12/04/2014 mammogram, 11/18/2013 mammogram, 11/14/2012 mammogram, 05/16/2012 mammogram - [facility], and 11/14/2011 stereotactic biopsy - [facility]. Color flow ultrasound of the left breast was performed. Meraz scale images of the real-time examination were reviewed. There is a 1.9 cm x 1.2 cm x 1.8 cm oval mass in the left breast at 12 o'clock posterior depth 8 cm from the nipple. This abnormality is decreased in size. Color flow imaging demonstrates that there is increased vascularity. There also is a lymph node in the left axillary tail with a thick cortex. IMPRESSION: HIGHLY SUGGESTIVE OF MALIGNANCY The 1.9 cm x 1.2 cm x 1.8 cm oval mass in the left breast at 12 o'clock posterior depth has a differential diagnosis of carcinoma and is highly suggestive of malignancy. An ultrasound guided biopsy is recommended. The lymph node in the left axillary tail is at a low suspicion for malignancy. An ultrasound guided biopsy is recommended. This exam was interpreted at Station ID: [id number]. Electronically Signed By: Vini Walker acr/:05/09/2021 15:13:20 letter sent: Biopsy Required Ultrasound BI-RADS: 5 Highly suggestive of malignancy
== END ==
PROVIDERS: Family Provider Family Medicine; PCP Family Medicine; Referring Provider Family Medicine; Visit Provider Family Medicine
DX: R92.8 Other abnormal and inconclusive findings on diagnostic imaging of breast; N63.25 Unspecified lump in the left breast, overlapping quadrants
CPT/HCPCS: 76642; 77066; G0279

== ENCOUNTER → 2021-05-26 09:57 | Outpatient (CLI) | payer MEDICARE, OTHER, SELFPAY ==
--- NOTE | 2021-05-26 | DI.US.S_ITS ---
ULTRASOUND GUIDED BIOPSY LEFT BREAST WITH MARKING DEVICE INSERTED: 05/26/2021 CLINICAL: Left axillary node biopsy. PATIENT CONSENT: Risks (minor bleeding, infection, vasovagal reaction and repeat procedure), benefits and alternatives were explained to the patient and written informed consent was obtained. Correlation is made to exams dated: 05/09/2021 ultrasound, 05/09/2021 mammogram, 12/04/2014 mammogram, 11/18/2013 mammogram, 11/14/2012 mammogram, and 05/16/2012 mammogram - [facility]. An ultrasound guided biopsy using real-time ultrasound was performed for the lymph node located in the left axillary tail. The skin was prepped in the usual manner. Local anesthetic was administered to the access site. A small incision was made in the breast. The abnormality was approached from the lateral aspect. A biopsy needle was placed adjacent to the abnormality under ultrasound guidance. Once the needle was documented to be in the correct location, three specimens were obtained using a BARD biopsy device. A clip was inserted into the biopsy cavity. The specimens were sent to the laboratory for pathological analysis. IMPRESSION: ULTRASOUND GUIDED BIOPSY BENIGN Ultrasound guided biopsy of the lymph node in the left axillary tail was successful. Pathology indicates benign lymph node. Pathology results are concordant with imaging findings. This exam was interpreted at Station ID: [id number]. Abundio machuca,aty/:06/02/2021 18:33:23
--- NOTE | 2021-05-26 | PATH_ITS ---
[facility] Accession Number: [id number] . 01 Material submitted: . breast - LEFT BREAST MASS 12:00 8CMFN . 01 Diagnosis: Left Breast Mass, 12 o'clock, 8 cm from the Nipple, Needle Core Biopsy: Malignant spindled cell lesion. SEE COMMENT. Histologic grade: Poorly differentiated, grade 3/3. Combined total Lele histologic score: 9 (tubule formation score 3/3, nuclear pleomorphism score 3/3, mitotic score 3/3). Present on multiple cores, single largest dimension of 8 mm in this sample. Ductal carcinoma in situ (DCIS): Not identified. Microcalcifications: Not definite. Lymphovascular invasion: Not identified. MRV 05/31/2021 1532 Local . 01 Comment: The H/E sections show a high grade spindled cell neoplasm, in a background of benign breast parenchyma. Conventional areas of invasive breast carcinoma are not identified. Within the malignant neoplasm, there are clusters of hyperchromatic, severely atypical and pleomorphic cells identified as well as sheets/poorly formed fascicles of spindled appearing pleomorphic malignant cells. Single large/giant malignant cells and numerous mitotic figures are noted. Focal areas show features reminiscent of a myxoid/chondroid matrix. Immunohistochemical staining shows that the neoplastic cells are positive for PAPI, CK5/6 and CK7 (clusters of hyperchromatic severely atypical cells) with patchy positivity for p63 supporting Epithelial/Carcinoma element. Few scattered cells show weak positivity on S100 immunostain. The spindled cells are diffusely positive for smooth muscle actin and CD10 indicating myoepithelial differentiation. Desmin, myogenin, CD34, GATA3 and mammaglobin are negative within the lesional cells. The malignant cells are also negative for breast predictive and prognostic markers ER, OH and HER2. . 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 There is no glandular or squamous differentiation identified. There is no leaf-like growth pattern suggestive of malignant phyllodes tumor identified. Controls stain appropriately. H/E slides from this case have also been reviewed by Dr. Wen Montero. . Preliminary findings were called to Shoshana, esol teacher assistant to Dr. Brooks on 05/30/2021 [address] Choudhury via telephone. . 01 Electronically signed: . Vanessa Choudhury MD, Pathologist NPI- [id number] . 01 Gross description: . Received one formalin-filled container, labeled with the patient's name and labeled left breast mass 12 o'clock 8 cm FN. The specimen is received with a plastic filter in container, sample loose in container and consists of multiple fragments of yellow-del cid to del cid-schmitt tissue which range in size from less than 0.1 cm to 0.9 x 0.4 x 0.4 cm. All fragments are totally submitted in one cassette. Possible collection date and time per requisition: 05/26/2021 at 12:21. Total fixation time: Approximately 13 hours. (DC:[id number]) /FRR 05/27/2021 0248 Local . 01 Pathologist provided ICD-10: N63.0, C50.922 . 01 CPT . 595216, I36671, I89665, 501165, 057330, 823109 Performed at: 01 [facility] [address] [place] [address], [place], [place] [id number] MD Josué Ramirez MD Phone: [phone]
--- NOTE | 2021-05-26 | DI.MG.S_ITS ---
UNILATERAL LEFT DIGITAL DIAGNOSTIC MAMMOGRAM 3D/2D POST-PROCEDURE IMAGING FOR MARKER PLACEMENT: 05/26/2021 CLINICAL: Left post clip. Comparison is made to exams dated: 05/09/2021 ultrasound and 12/04/2014 mammogram - [facility]. The tissue of left breast is predominantly fatty. There is a marker clip in the appropriate position in the left breast at 12 o'clock middle depth. This marker clip placement is at the biopsy site. IMPRESSION: POST PROCEDURE MAMMOGRAM FOR MARKER PLACEMENT There was a successful marker clip placement in the left breast middle depth. This exam was interpreted at Station ID: [id number]. NOTE: For mammograms, a report in lay terms will be sent to the patient. Approximately 15% of breast malignancies will not be visualized mammographically. In the management of a palpable breast mass, a negative mammogram must not discourage biopsy of a clinically suspicious lesion. Electronically Signed By: Abundio machuca/:05/26/2021 15:20:47 ACR BI-RADS Category Post-procedure mammogram for marker placement
--- NOTE | 2021-05-26 10:15 | DI.US.S_ITS ---
Date: 05/26/2021 12:30 At the request of: SONAM CHINO Procedure: US bx breast perc w vac device ULTRASOUND GUIDED BIOPSY LEFT BREAST USING VACUUM DEVICE WITH MARKING DEVICE INSERTED: 05/26/2021 CLINICAL: Left breast mass. PATIENT CONSENT: Risks (minor bleeding, infection, vasovagal reaction and repeat procedure), benefits and alternatives were explained to the patient and written informed consent was obtained. Correlation is made to exams dated: 05/09/2021 ultrasound, 05/09/2021 mammogram, 12/04/2014 mammogram, 11/18/2013 mammogram, 11/14/2012 mammogram, and 05/16/2012 mammogram - [facility]. An ultrasound guided biopsy using real-time ultrasound was performed for the mass located in the left breast at 12 o'clock middle depth. The skin was prepped in the usual manner. Local anesthetic was administered to the access site. A small incision was made in the breast. The abnormality was approached from the lateral aspect. A biopsy needle was placed adjacent to the abnormality under ultrasound guidance. Once the needle was documented to be in the correct location, eight specimens were obtained using the Mammotome biopsy system. A clip was inserted into the biopsy cavity. The specimens were sent to the laboratory for pathological analysis. IMPRESSION: ULTRASOUND GUIDED BIOPSY MALIGNANT Ultrasound guided biopsy of the mass in the left breast at 12 o'clock middle depth was successful. 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 Pathology results are concordant with imaging findings. A surgical/oncologic consultation is recommended. This exam was interpreted at Station ID: [id number]. Abundio machuca,aty/:06/02/2021 18:35:08
== END ==
PROVIDERS: Family Provider Family Medicine; PCP Family Medicine; Referring Provider Family Medicine; Visit Provider Family Medicine
DX: C50.812 Malignant neoplasm of overlapping sites of left female breast (principal); R59.0 Localized enlarged lymph nodes
CPT/HCPCS: 19083; 38505; 76942; 77065

== ENCOUNTER → 2021-07-01 11:00 | Outpatient (CLI) | payer MEDICARE, OTHER, SELFPAY ==
[2021-07-01 12:14] LABS: COVID19 -Nasal RAPID Negative (Negative)
== END ==
PROVIDERS: PCP Family Medicine; Visit Provider Surgery
DX: Z20.822 Contact with and (suspected) exposure to COVID-19 (principal); Z01.812 Encounter for preprocedural laboratory examination
CPT/HCPCS: 87635; C9803

== ENCOUNTER 2021-07-04 09:49 | Day surgery (SDC) | payer MEDICARE, OTHER, SELFPAY ==
[2021-07-01 07:47] VITALS: BMI 21.7
[2021-07-04] VITALS (14 sets, daily range): BP systolic 121–135; BP diastolic 53–62; PULSE 62–90; RESP 14–22; TEMP 35.5–36.6; O2SAT 90–99; BMI 21.7
--- NOTE | 2021-07-04 | PATH_ITS ---
[facility] Accession Number: [id number] . 01 Material submitted: . breast - LEFT BREAST, STITCH LATERAL . 02 Diagnosis: A. Left Breast, Mastectomy: Metaplastic carcinoma, high grade variant, grade 3 of 3 ([place] combined histologic grade total score 9/9), with the following features: 1. Tumor size (invasive component): 4.2 cm by gross measurement. 2. Nuclear pleomorphism: High. (3/3) 3. Mitotic rate: High. (3/3) 4. Tubular formation: None. (3/3) 5. Ductal carcinoma in situ: Not definitively identified. 6. Calcifications: Absent. 7. Lymphovascular space invasion: Not identified in this specimen. 8. Resection margins: - Invasive carcinoma: Negative, with the closest distance to margins as follows: * Anterosuperior margin: 0.7 cm. * Anteroinferior and posterior margins: More than 1 cm. 9. Prognostic markers: (Repeated on the current specimen; congruent with results on the biopsy, [facility] case# [id number], 05/27/2021) and summarized as follows: - Estrogen receptor: Negative (0% tumor cells staining). - Progesterone receptor: Negative (0% tumor cells staining). - HER2 status: Negative for protein overexpression by immunohistochemistry (0). 10. Regional lymph node status: No regional lymph nodes found or submitted. 11. Additional findings: - Skin with seborrheic keratosis. - Nipple within normal limits. - Skeletal muscle is not identified. - Biopsy site changes are present. 12. Pathologic stage: pT2 pN0. . . COMMENT: The excision demonstrates a metaplastic carcinoma which consists of biphasic epithelial (more differentiated) and sarcomatoid carcinoma (high-grade variant) components that are juxtaposed and intertwined. The more differentiated component has variable histology but resembles a poorly differentiated invasive ductal carcinoma (approximately 20% of the tumor); the sarcomatoid carcinoma component consists predominantly of high-grade spindle cells ( 70% of the tumor, consistent with spindle cell carcinoma), and another even higher-grade component ( 10% of the tumor) consisting of areas of discohesive, highly pleomorphic tumor giant cells (osteoclast-like) within a highly atypical spindled cell background, hemorrhage and numerous atypical mitotic figures. The predominant spindle cell component consists of intermediate to highly atypical spindle cells, organized in a wavy, interlacing, overlapping fascicular and patternless pattern. Large areas of necrosis are present. Focal squamoid differentiation is seen and myxoid stroma is present; however, definitive heterologous elements or other type of mesenchymal differentiation such as chondroid, osseous, rhabdomyoid, or neuroglial differentiation is not seen. This diagnosis is further supported by direct evidence of epithelial differentiation by immunohistochemistry (expression of PAPI, high-molecular weight cytokeratin, CK 5/6, and p63) and other IHC findings (please see microscopic description). . The size of the invasive carcinoma is measured grossly as 4.2 cm; this is further confirmed microscopically by involvement of at least 4 slices each about 1.1 cm. MRV 07/12/2021 1147 Local . 02 Electronically signed: . Wen Montero MD, Pathologist NPI- [id number] . 01 Gross description: . The specimen is received in formalin, labeled left mastectomy specimen. Weight: 155 grams. Measurement: 16.0 cm from medial to lateral by 13.5 cm from superior to inferior by 9.0 cm from anterior to posterior. Skin Ellipse: Present, is schmitt and wrinkled measuring 21.0 x 7.2 cm. Nipple/Areola: The everted nipple measures 1.3 x 1.0 cm and the areolar complex measures 3.5 x 3.2 cm. Axillary Tail: Absent. Margins: The specimen is oriented with a suture designated la lateral. The specimen is inked as follows: Anterosuperior blue, anteroinferior green, and posterior black. Slices: The specimen is serially sectioned from medial to lateral into 15 slices. Lesion: There is a 4.2 x 2.5 x 2.2 cm well-circumscribed schmitt-white lesion within slices 4-7 with focal areas of hemorrhage. Distance To Margins: The lesion is located 0.9 cm from the anterosuperior margin, 1.3 cm from the posterior margin, and 2.0 cm from the anteroinferior margin. The lesion is greater than 2 cm from the medial and lateral, skin, areolar complex and nipple margin. Other: The remaining cut surfaces are composed of approximately 75% schmitt-yellow lobulated adipose tissue and 25% schmitt-white fibrous tissue. Marine Gear K[employer] sections are submitted. A1: Nipple, perpendicularly sectioned and entirely submitted. A2: Slice 3, medial to lesion. A3-A4: Lesion in relation to anterosuperior margin, slice 4. A5-A6: Slice 5, lesion in relation to anterosuperior margin. A7: Slice 6, hospital insurance representative lesion. A8-A9: Slice 8, in relation to posterior and anterosuperior margins. A10-A11: Slice 7, mass in relation to anterosuperior, posterior margins. A12: Slice 7, closest anteroinferior margin and skin. A13: Slice 8, lateral to lesion. A14-A15: Upper outer quadrant. A16-A17: Lower outer quadrant. A18-A19: Lower inner quadrant, to include skin lesions. A20: Nipple base (yellow). Formalin fixation time: Approximately 52 hours. (EA:cmc10 [id number]) /MRV 07/06/2021 1126 Local . 02 Microscopic: . Given the fragmented nature of the prior biopsy, a panel of immunostains is performed on A9 (and few on A7) in order to characterize the various tumor components and further ascertain the diagnosis. The external controls stain appropriately, and the tumor has the following immunoprofile: . High molecular weight cytokeratin, CK5/6, PAPI: Positive within more differentiated component, rare cells staining within metaplastic component (mostly negative). P63: Positive, variable (stronger within more differentiated component and weaker within metaplastic component). CD10: Positive, strong within metaplastic component, and weak blush to no staining in more differentiated component. SMA: Positive in metaplastic component and rare focal positivity in the more differentiated component. Desmin: Positive in discohesive metaplastic osteoclast-like tumor giant cells (negative in metaplastic spindle cell component and more differentiated component). S100: Rare focal positivity within metaplastic component; negative in rest. MAURO-3: Mostly negative (blush staining within more differentiated component that is very weak and imperceptible). P40: Focally positive in more differentiated component (in support of squamoid differentiation); negative in rest. Smooth muscle myosin: Negative in areas of interest (no evidence of DCIS; also focally positive in discohesive metaplastic osteoclast-like tumor giant cells). Myogenin: Negative. VVG (elastic stain): No definitive evidence of vascular invasion. Synaptophysin (A7): Negative. Chromogranin (A7): Negative. CD56 (A7): Positive diffusely in metaplastic component and focally in more differentiated component (currently, in the absence of the other neuroendocrine markers immunoreactivity (synaptophysin and chromogranin), this finding is of uncertain clinical significance). . Best tumor blocks: A7 followed by A5. . Prognostic markers are repeated on block A6 (with a more prominent differentiated component) and the tumor shows the following results: . Estrogen receptor status: Negative (0% tumor cells staining). Progesterone receptor status: Negative (0% tumor cells staining). HER2: Negative for protein overexpression by immunohistochemistry (0). . Internal controls for ER and IA are positive. Cold ischemic time is <5 minutes. The scoring criteria for breast biomarkers by immunohistochemistry is based on the ASCO/CAP guidelines (Le AC et al, J Clin Oncol: 2017Mar 05;36(20):7773-3996 and Emily ME et al, Arch Pathol Lab Med: 2009;134(6):907-22). Deparaffinized sections of formalin fixed tissue (along with appropriate positive controls) are incubated with the above antibody(s). Using the automated [place] stainer, tissue is incubated with the designated antibody which is then localized by a non-biotin, dual polymer detection system. The external controls are reviewed for appropriate reactivity and found to be adequate. Results on the target cell population are indicated above. These tests have not been validated on decalcified or alcohol-based fixed tissue. This test was developed and its performance characteristics determined by [employer]. It has not been cleared or approved by the U.S. Food and Drug Administration. The FDA has determined that such clearance or approval is not necessary. This test is used for clinical purposes. It should not be regarded as investigational or for research. . 02 Pathologist provided ICD-10: C50.912 . 02 CPT . 680667, A41463, N00595, 318586, 636477, 671388, 691027 Performed at: 01 [facility] [address] [address], [place], [place] [id number] MD Josué Ramirez MD Phone: [phone] Performed at: [address] [id number] MD Justine Winter MD Phone: [phone]
[2021-07-04] MEDS: ACETAMINOPHEN 325 MG TABLET 650 MG PO ×2 (11:16→20:36)
[2021-07-04] MEDS: LACTATED RINGERS 1,000 ML 42 ML IV (11:16)
[2021-07-04 11:39] LABS: Alanine Aminotransferase 14 IU/L (<35); Albumin 3.5 g/dL (3.5-5.0); Albumin Globulin Ratio 1.3 (1.0-2.8); Alkaline Phosphatase 116 U/L (38-126); Aspartate Aminotransferase 29 IU/L (14-36); BUN Creatinine Ratio 10.2 (6-22); Bilirubin Total 0.4 mg/dL (0.2-1.3); Blood Urea Nitrogen 40 mg/dL (7-17); Calcium 9.8 mg/dL (8.4-10.2); Carbon Dioxide 27 mmol/L (22-32); Chloride 99 mmol/L (98-107); Estimated Glomerular Filt Rate 11.1 mL/min (>60); Globulin 2.7 g/dL (1.7-4.1); Glucose 93 mg/dL (80-110); HEMOLYSIS < 15 (0-50); Potassium 3.7 mmol/L (3.4-5.1); Sodium 136 mmol/L (137-145); Total Protein 6.2 g/dL (6.3-8.2)
--- NOTE | 2021-07-04 11:39 | PM.PREOP ---
Pre-operative Note COVID-19 COVID-19 status: Negative Result date/Date tested (Pos, Neg/Pending): 07/01/21 Interval Note History & Physical reviewed/Exam performed by Physician: Yes Changes to H&P: No ASA Class (for procedural sedation): III
[2021-07-04] MEDS: CEFAZOLIN 1 GM VIAL 2 GM IV (12:20)
--- NOTE | 2021-07-04 12:28 | SUR.OPER ---
Supine on padded OR bed, head on pillow, arms secured on padded arm boards at <90 degrees abduction, legs uncrossed, safety belt at thigh, tape over blanket over lower legs.
[2021-07-04] MEDS: BUPIVACAINE 0.5% (PF) 30 ML, EPINEPHrine 0.15 MG INJ (12:33)
[2021-07-04] MEDS: LIDOCAINE 1% 30 ML INJ (12:34)
--- NOTE | 2021-07-04 14:34 | PM.OP.1 ---
Operative Date/Time/Diagnoses Date of procedure: 07/04/21 Time of procedure: 14:34 Pre-op diagnosis: Left breast cancer Post-op diagnosis: same Procedure & Clinicians Procedure: Left simple mastectomy Same procedure as scheduled: Yes Indications: Left breast cancer Surgeon: Nory Jravis Click Yes if Unassisted: No Anesthesia Type: General Operative Notes Findings: Large left breast mass Estimated Blood Loss (mL): 25 Procedure in detail: The patient is a 80-year-old woman with multiple comorbidities who was diagnosed with a triple negative left breast cancer. She was consented for a left simple mastectomy because she was not a candidate for radiation. No sentinel lymph node was planned because she was not a candidate for adjuvant therapy. Preoperative antibiotics were given. The patient was brought to the operating room, placed on the table in the supine position and general anesthesia was induced via LMA. The arms were abducted on arm boards. The left breast and axilla were prepped and draped in the usual fashion. A time-out was performed. We made an elliptical skin incision encompassing the left areola and curving towards the axilla laterally. We used cautery to enter the plane between the breast tissue in the subcutaneous adipose tissue. The large mass could be palpated about 5 cm superior to the left areola. We developed the superior flap first. We carried the dissection to the superior aspect of the breast tissue and when we saw pectoralis muscle we started to turn and lift the breast off the pectoral fascia. Medially there were a few perforators which were controlled with either hemoclips or 3-0 Vicryl tie. We then created an inferior flap and dissected the breast tissue down to the inframammary fold. We carried the dissection laterally to the edge of the latissimus muscle. We then removed the breast tissue from the field. We used a single silk stitch to nory the lateral aspect. Finally, we irrigated the wound cavity with 2 L of saline. We checked for hemostasis and addressed a few small bleeders with cautery. We injected additional local into the muscle and fascia. We then placed 2 drains; the lateral drain went into the axilla and the more medial drain stayed over the pectoral muscle. Drains were secured to the skin with a 2-0 nylon stitch. We then closed the incision in layers using interrupted 3-0 Vicryl dermal sutures followed by running 4-0 Monocryl subcuticular stitch. Dressings were applied and the patient was brought to recovery room. EBL: 20 mL Post-operative Condition: stable Disposition: PACU
--- NOTE | 2021-07-04 15:29 | SUR.PHASEI ---
Report vi phone to YELENA Brown. Pt with RN to Room 211. 1529 hrs.
[2021-07-04] MEDS: diphenhydrAMINE 25 MG TABLET 50 MG PO (20:36)
--- NOTE | 2021-07-05 01:15 | PC.NURSE ---
Addendum entered by Lauren Cortes R.N. 07/05/21 01:34: Patients Drains were labeled with a sharpie R and in the chart Right Medial Chest for the Pectoral drain, and the Lateral Axilla drain was labeled L on the drain and charted at the left chest. At the start of shift (2039) the R drain was emptied and had 20cc sanguineous to serosanguineous fluid. The L did not have enough to empty at this time. Will monitor and drain as needed. Original Note: Late entry: Patient requesting Benadryl for bed as patient states she takes 2 Tylenol and 2 Benadryl before going to sleep. Dr. Mcelroy was called at 2020 and telephone orders were given for 50mg Benadryl PO NOW. Order was entered and medication was given. Patient did have trouble falling asleep and was finally able to go to sleep at 0030. Vitals for 0100 will be held until patient wakes d/t patient having trouble falling asleep and VSS stable at last check. Call light within reach and bed in lowest and locked position.
[2021-07-05 06:16] VITALS: BP 149/62; PULSE 83; RESP 19; TEMP 36.9; O2SAT 93
[2021-07-05] MEDS: ACETAMINOPHEN 325 MG TABLET 650 MG PO (06:19)
[2021-07-05 08:33] VITALS: BP 138/57; PULSE 73; RESP 14; TEMP 36.6; O2SAT 97
--- NOTE | 2021-07-05 09:17 | PM.PN.1 ---
Subjective Subjective Date Patient Seen: 07/05/21 Time Patient Seen: 09:17 Interval history: Pain is minimal and controlled with Tylenol. Drain output has been minimal predominantly from the medial drain. Exam Vital Signs (past 8 hours): - 07/05/21 06:16 07/05/21 08:33 Temperature 98.5 F 97.8 F Pulse Rate 83 73 Respiratory Rate 19 14 Blood Pressure 149/62 H 138/57 L Pulse Oximetry 93 97 Oxygen Delivery Method Room Air Oxygen Flow Rate 0 Narrative Exam Narrative: Small amount of bloody drainage from the medial drain and scant serous drainage from the lateral drain. Dressings remain in place. Objective Labs Result Diagrams: 07/04/21 10:54 Labs: Laboratory Results - last 24 hr 07/04/21 10:54 Sodium 136 L Potassium 3.7 Chloride 99 Carbon Dioxide 27 BUN 40 H Creatinine 3.91 H Estimated GFR 11.1 L BUN/Creatinine Ratio 10.2 Glucose 93 Calcium 9.8 Total Bilirubin 0.4 AST 29 ALT 14 Alkaline Phosphatase 116 Total Protein 6.2 L Albumin 3.5 Globulin 2.7 Albumin/Globulin Ratio 1.3 PFSH Medical History Anxiety about health Back stiffness Balance problem Breast cancer in female Cervical somatic dysfunction Chronic nausea Chronic neck pain CKD (chronic kidney disease) (Unknown) Constipation Cranial somatic dysfunction CREST syndrome (Unknown) End stage renal failure on dialysis GERD (gastroesophageal reflux disease) (Unknown) Gout Hiatal hernia with gastroesophageal reflux disease and esophagitis Hyperkalemia Hyperlipemia (Unknown) Hypertension (Unknown) Localized swelling of left forearm Nausea with vomiting Osteopenia (~04/2016) Osteoporosis (~04/2016) Pain of left great toe Raynaud's disease (Unknown) Segmental and somatic dysfunction of abdomen and other regions Segmental and somatic dysfunction of abdomen and other regions Segmental and somatic dysfunction of pelvic region Segmental and somatic dysfunction of rib cage Segmental and somatic dysfunction of sacral region Segmental and somatic dysfunction of thoracic region Somatic dysfunction of right lower extremity Upper extremity somatic dysfunction Surgical History History of cataract removal with insertion of prosthetic lens History of rectal surgery Status post breast biopsy Status post hysterectomy Status post tonsillectomy and adenoidectomy Family History Father Congestive heart failure Hypertension Mother Myocardial infarction Social History household members: children Smoking Status: Never smoker alcohol intake: current Assessment & Plan Assessment and plan (1) Postoperative examination: Status: Acute Plan: Doing well following left mastectomy for cancer. We will discharge home today after lunch. Time Spent With Patient Critical Care time: I spent a total of [] minutes of critical care time on this patient's care today; this time is exclusive of procedural time. Quality VTE Deep Vein Thrombosis/Pulmonary Embolism Present on Admission: No
[2021-07-05] MEDS: METOPROLOL IR 25 MG TABLET PO (12:04)
[2021-07-05] MEDS: SENNOSIDES 8.6 MG TABLET PO (12:04)
[2021-07-05] MEDS: PANTOPRAZOLE DR 20 MG TABLET PO (12:04)
[2021-07-05] MEDS: allopurinoL 100 MG TABLET PO (12:04)
--- NOTE | 2021-07-05 12:42 | P.DS_ITS ---
History of Present Illness History of Present Illness Date Patient Seen: 07/05/21 Time Patient Seen: 12:43 Chief complaint: Left breast cancer Discharge Providers Provider Discharge Date: 07/05/21 Primary care physician: Todd Lanza DO Consults: 07/01/21 08:46 Consult to Anesthesiology Routine Comment: Consulting Provider: Anesthesiologist Reason for consultation: PAC courtesy re:Comorbidities Discharge provider: Vernon Jarvis MD Summary Hospital Course Hospital Course: Yanni was admitted on 07/04/2021 for a left breast mastectomy for left breast cancer. She was admitted to the floor observation overnight. She had minimal pain postop day 1 and was tolerating a diet. Her drain output was minimal. She was discharged home with instructions to follow as an o utpatient for drain removal. Exam Vital Signs (past 8 hours): - 07/05/21 06:16 07/05/21 08:33 Temperature 98.5 F 97.8 F Pulse Rate 83 73 Respiratory Rate 19 14 Blood Pressure 149/62 H 138/57 L Pulse Oximetry 93 97 Oxygen Delivery Method Room Air Oxygen Flow Rate 0 Objective Labs Result Diagrams: 07/04/21 10:54 PFSH Medical History Anxiety about health Back stiffness Balance problem Breast cancer in female Cervical somatic dysfunction Chronic nausea Chronic neck pain CKD (chronic kidney disease) (Unknown) Constipation Cranial somatic dysfunction CREST syndrome (Unknown) End stage renal failure on dialysis GERD (gastroesophageal reflux disease) (Unknown) Gout Hiatal hernia with gastroesophageal reflux disease and esophagitis Hyperkalemia Hyperlipemia (Unknown) Hypertension (Unknown) Localized swelling of left forearm Nausea with vomiting Osteopenia (~04/2016) Osteoporosis (~04/2016) Pain of left great toe Raynaud's disease (Unknown) Segmental and somatic dysfunction of abdomen and other regions Segmental and somatic dysfunction of abdomen and other regions Segmental and somatic dysfunction of pelvic region Segmental and somatic dysfunction of rib cage Segmental and somatic dysfunction of sacral region Segmental and somatic dysfunction of thoracic region Somatic dysfunction of right lower extremity Upper extremity somatic dysfunction Surgical History History of cataract removal with insertion of prosthetic lens History of rectal surgery Status post breast biopsy Status post hysterectomy Status post tonsillectomy and adenoidectomy Family History Father Congestive heart failure Hypertension Mother Myocardial infarction Social History household members: children Smoking Status: Never smoker alcohol intake: current Discharge Plan Discharge Plan Patient Disposition: Home Discharge orders & Medications Discharge Orders: Discharge (Order); Ordered 07/05/21 Ordered By: Vernon Jarvis Prescriptions: Continued metoprolol tartrate 25 mg tablet 25 mg PO BID Qty: 180 RF: 3 nifedipine 90 mg tablet extended release 24hr 90 mg PO QPM Qty: 90 RF: 3 sildenafil (pulm.hypertension) 20 mg tablet 20 mg PO TID Qty: 270 RF: 3 atorvastatin 10 mg tablet 10 mg PO BEDTIME Qty: 90 RF: 3 alprazolam 0.25 mg tablet 0.125 mg PO BID PRN (Reason: anxiety) Qty: 30 RF: 0 pentoxifylline 400 mg tablet extended release 400 mg PO DAILY RF: 0 ondansetron 4 mg tablet,disintegrating 4 mg PO Q8H PRN (Reason: nausea and vomiting) Qty: 30 RF: 3 lansoprazole [Prevacid] 15 mg capsule,delayed release(DR/EC) 15 mg PO BID RF: 0 sennosides [senna] 8.6 mg tablet 8.6 mg PO BID RF: 0 B complex-vitamin C-folic acid 1 tab PO DAILY RF: 0 Probiotic 1 cap PO DAILY RF: 0 acetaminophen 325 mg Tablet 325 mg PO Q4H PRN (Reason: PAIN OR FEVER) RF: 0 diphenhydramine HCl 25 mg Capsule 25 mg PO PRN PRN (Reason: Allergy Symptoms) RF: 0 sevelamer HCl 800 mg Tablet 800 mg PO TID RF: 0 allopurinol 100 mg Tablet 200 mg DAILY RF: 0 Discontinued aspirin 325 mg tablet 325 mg PO DAILY RF: 0 Follow up/Referrals: Todd Lanza DO [Primary Care Provider] - Diet/Activity/Treatments Diet: Regular Skin/Wound/Dressing Care Dressing: Ok to remove gauze dressings at home. Leave Steri-Strips on until they start to peel off in 1-2 weeks. Okay to shower. Okay to remove breast binder at home if desired. Call [facility] in a few days regarding drain output. Discharge Data Primary Care Provider: Todd Lanza Attending Provider: Vernon Jarvis Quality VTE Deep Vein Thrombosis/Pulmonary Embolism Present on Admission: No
--- NOTE | 2021-07-05 12:58 | CM.DANOTE ---
DCP assessment: Patient is a 80 yr old female who is here for LT mastectomy. Cm met with patient at the bedside and explained role. Patient was alert and oriented at time of CM visit. Patient is Independent at baseline and utilizes a walker. patients daughter does most of the driving. Patient currently lives with her daughter Lluvia and her son in law. Patient stated she has 4 steps to get into her home but is able to maneuver that regularly. I: Medicare and regence P: DC home with daughter when medically stable. Patient stated she is planning on DC later today and her daughter will provide her transport home Rebecca Roldan RN Case Manger Discharge Planning/Care Management CM Discharge Assessment Start: 07/05/21 13:03 Freq: Status: Active Protocol: Document 07/05/21 13:03 HS (Rec: 07/05/21 13:04 HS [id number]) Discharge Planning Assessment Assigned Machine Brusher Rebecca Roldan RNladies suit operator DPOA/Assigned Designee Name Lluvia Ordonez (daughter) Contact Information [phone] Advance Directives? Yes: POLST Advance Directives on File No History Provided By Patient,Medical Record Has Patient been admitted in last 30 No days? Prior Living Arrangements House Household Members children Type of transporation used prior to Relies on Others admit Independent with ADL's Yes Is patient alert and oriented? Yes Caregiver for Another No DME Already Rented / Owned FWW / Walker Barriers to Discharge No Discharge Plan Home Transportation Arrangement Daughter will [place] home Referrals Initiated None needed Whiteboard Updated in Patient Room with Yes name and ext. # of Machine Brusher Review Status In Process Next Review Type Continued Stay Review Pre-Anesthesia Assessment Start: 07/01/21 07:47 Freq: Status: Active Protocol: Document 07/01/21 07:47 CAB (Rec: 07/01/21 08:46 CAB [id number]) Pre-Anesthesia Assessment PAC Comment Permcath in right chest - renal failure-on dialysis Jehovah witness-NO BLOOD PRODUCTS Patient Information Reviewed Via Chart Review Comment COVID screen @ 07/01/21 Primary Care Provider Todd Lanza Seen Specialist in Last 12 Months Yes Specialist Seen General surgeon,Sap Administrator, Oncologist,Other Comment Rheumatology Primary Language South African Fashion Adviser Required No Height 157.48 cm Weight 53.977 kg Body Mass Index (BMI) 21.7 Anesthesia Review Requested Yes: PAC courtesy re: Comorbidities alcohol intake current alcohol intake frequency 0-2 drinks per day Smoking Status Never smoker Substance Use Type does not use Patient is completely paralyzed or No completely immobile Mental Status Oriented to own ability Hx Sleep Apnea No Currently Taking a Beta Yuri Yes: Metoprolol Anti-Coagulant Therapy Yes: ASA 325mg/day Hx Pacemaker/ICD No Pacemaker Rep Required? No Urinary Catheter Present No Hx Urinary Self Catheterization No Diabetes No Comment End stage kidney failure- peritoneal dialysis 2x/week Patient No Lactating No Hx Drug Resistant Organism Yes: MSSA/Sepsis 08/04/20- Admit to [facility] Presence of External or Internal Medical Yes: Bilat eye IOLs, PermCath Devices (dialysis) Received a COVID vaccine? Yes Marital Status Patient Discharge Plan Description Return Home Do You Have Any Spiritual Beliefs That Yes May Affect Your HC Choices? Do You Have Any Cultural Practices That Yes: Jehovah Witness-NO May Affect Your HC Choices? BLOOD PRODUCTS Advance Directives? Yes: HARSH
--- NOTE | 2021-07-05 14:53 | PC.NURSE ---
Discharge instructions and home care handouts reviewed with patient and her daughter. They state understanding and have no further questions or concerns at this time. Patient instructed to call surgeon's office to ensure a follow up appointment is scheduled. Drains in place and intact, drain care handout reviewed with patient and patient and her daughter watched demonstration of how to empty and care for site. Patient has gauze dressing on with breast binder in place. Instructed to call surgeon with any questions or concerns, and to report any signs or symptoms of infection, bleeding or concerns. Instructed to seek emergency care for emergency. Escorted out via wheelchair with all her belongings by COST AND SALES RECORD SUPERVISOR to home with her daughter.
== END 2021-07-05 14:55 | disposition home or self-care (01) ==
LOC: OR 09:51 → AC 09:51
PROVIDERS: Anesthesiology; PCP Family Medicine; Referring Provider Surgery; Visit Provider Surgery
PROC: 0HTU0ZZ Resection of Left Breast, Open Approach (ICD-10-PCS; CPT 19303; principal; 2021-07-04 11:15)
DX: C50.912 Malignant neoplasm of unspecified site of left female breast (principal); Z17.0 Estrogen receptor positive status [ER+]
CPT/HCPCS: 19303; 80053; J0171; J0690; J1100; J2405; J2704; J3010

== ENCOUNTER → 2021-07-22 11:21 | Outpatient (CLI) | payer MEDICARE, OTHER, SELFPAY ==
[2021-07-20 10:36] VITALS: BMI 21.7
[2021-07-22 12:08] LABS: Add Manual Diff / Slide Review NO; Basophils Absolute Auto 100 /uL (0-100); Basophils Percent Auto 0.7 % (0-2); Eosinophils Absolute Auto 600 /uL (0-450); Eosinophils Percent Auto 6.9 % (2-4); Hematocrit 34.7 % (36-46); Hemoglobin 11.3 g/dL (12.0-16.0); Lymphocytes Absolute Auto 1000 /uL (1100-4500); Lymphocytes Percent Auto 11.7 % (25-40); Mean Corpuscular HGB Conc 32.6 % (30-36); Mean Corpuscular Hemoglobin 33.5 PG (26-34); Mean Corpuscular Volume 102.9 fL (80-100); Monocytes Absolute Auto 500 /uL (0-900); Monocytes Percent Auto 5.9 % (3-14); Neutrophils Absolute Auto 6200 /uL (1500-7000); Neutrophils Percent Auto 74.8 % (50-75); Platelet Count 293 X10^3/uL (150-400); Red Blood Cell Count 3.38 X10^6/uL (4.0-5.2); Red Cell Distribution Width 18.9 % (11.6-14.8); White Blood Cell Count 8.3 X10^3/uL (4.5-11.0)
[2021-07-22 12:14] LABS: INR 1.4 (0.9-1.3)
[2021-07-22 12:25] LABS: Alanine Aminotransferase 10 IU/L (<35); Albumin 3.4 g/dL (3.5-5.0); Albumin Globulin Ratio 1.4 (1.0-2.8); Alkaline Phosphatase 117 U/L (38-126); Aspartate Aminotransferase 26 IU/L (14-36); BUN Creatinine Ratio 10.5 (6-22); Bilirubin Total 0.4 mg/dL (0.2-1.3); Blood Urea Nitrogen 34 mg/dL (7-17); Calcium 9.6 mg/dL (8.4-10.2); Carbon Dioxide 28 mmol/L (22-32); Chloride 98 mmol/L (98-107); Estimated Glomerular Filt Rate 13.9 mL/min (>60); Globulin 2.5 g/dL (1.7-4.1); Glucose 85 mg/dL (80-110); HEMOLYSIS < 15 (0-50); Potassium 3.1 mmol/L (3.4-5.1); Sodium 138 mmol/L (137-145); Total Protein 5.9 g/dL (6.3-8.2); Uric Acid 4.9 mg/dL (2.5-6.2)
== END ==
PROVIDERS: Family Provider Family Medicine; PCP Family Medicine; Referring Provider Internal Medicine Rheumatology; Visit Provider Internal Medicine Rheumatology
DX: Z79.01 Long term (current) use of anticoagulants (principal); M10.9 Gout, unspecified; Z79.899 Other long term (current) drug therapy; M34.1 CR(E)ST syndrome
CPT/HCPCS: 36415; 80053; 84550; 85025; 85610

== ENCOUNTER → 2021-08-01 15:32 | Outpatient (CLI) | payer MEDICARE, OTHER, SELFPAY ==
[2021-07-20 10:36] VITALS: BMI 21.7
[2021-08-01 17:38] LABS: INR 3.5 (0.9-1.3); Prothrombin Time 39.8 SECONDS (10.1-12.7)
== END ==
PROVIDERS: Family Provider Family Medicine; PCP Family Medicine; Referring Provider Family Medicine; Visit Provider Family Medicine
DX: Z79.01 Long term (current) use of anticoagulants (principal)
CPT/HCPCS: 36415; 85610

== ENCOUNTER → 2021-08-15 13:09 | Outpatient (CLI) | payer MEDICARE, OTHER, SELFPAY ==
[2021-08-04 14:29] VITALS: BMI 21.7
[2021-08-15 14:16] LABS: INR 1.6 (0.9-1.3); Prothrombin Time 18.2 SECONDS (10.1-12.7)
== END ==
PROVIDERS: Family Provider Family Medicine; PCP Family Medicine; Referring Provider Family Medicine; Visit Provider Family Medicine
DX: Z79.01 Long term (current) use of anticoagulants (principal)
CPT/HCPCS: 36415; 85610

== ENCOUNTER → 2022-01-26 10:30 | Outpatient (CLI) | payer MEDICARE, OTHER, SELFPAY ==
[2021-08-04 14:29] VITALS: BMI 21.7
--- NOTE | 2022-01-26 10:34 | DI.CT.S_ITS ---
PROCEDURE: CT CHEST ABD PEL W CON INDICATIONS: restaging after surgery, monitoring TECHNIQUE: After the administration of oral and intravenous contrast, axial sections acquired from the supraclavicular neck to the pubic symphysis. Coronal and sagittal reformats were performed. For radiation dose reduction, the following was used: automated exposure control, adjustment of mA and/or kV according to patient size. COMPARISON: [facility], CT, CT ABDOMEN PELVIS WO CON, 11/16/2020, 23:01. FINDINGS: Image quality: Excellent. CHEST: Lower Neck: No enlarged lymph nodes. Thyroid: Demonstrates bilateral nodules, largest of which is in the left lobe measuring 13 mm diameter. Axillae: No enlarged lymph nodes. Chest Wall: Unremarkable. Lungs and Airways: No consolidation or suspicious nodules. There is moderate apically predominant emphysema. Mild bibasilar scarring is present. Subpleural nodular density within the left upper lobe anteriorly measuring 4 mm. 10 mm nodular density within the right upper lobe anteromedially. Pleura: No pneumothorax or pleural effusions. Heart: Heart size is enlarged. Calcification of the coronary vasculature is present. No pericardial effusion. Thoracic Vessels: The aorta and pulmonary arteries demonstrate normal size. Mediastinum and Anais: No enlarged lymph nodes. Esophagus: No wall thickening. There is a small hiatal hernia associated with gastroesophageal reflux into the lower cervical esophagus.. ABDOMEN: Liver: Unremarkable. Gallbladder: Is surgically absent Biliary ducts: Unremarkable. Pancreas: No change in multiple cystic densities adjacent to the pancreatic head, neck, body and tail, largest of which measures 32 mm at the body/tail junction. Spleen: Unremarkable. Adrenal Glands: Unremarkable. Kidneys and Ureters: Bilateral renal cysts are present. Stomach and Bowel: Stomach and small bowel are within normal limits. There is moderate thickening of the right colon. Peritoneum: Free fluid versus increased cystic density within the left pelvis. New peritoneal drainage catheter is present, tip of which is in the right hemipelvis. Small amount of pneumoperitoneum within the upper abdomen. Small amount of perihepatic ascites. Ventral Wall: No hernia. Abdominal Nodes: No retroperitoneal or mesenteric adenopathy by size criteria. Vessels: Aorta and inferior vena cava are normal in size. PELVIS: Pelvic Organs: Increased cystic density within the left adnexal location measuring 79 mm. This could also represent free fluid. Bladder: Unremarkable. Pelvic Nodes: No enlarged lymph nodes. Miscellaneous: No inguinal hernias are seen. Bones: Unremarkable. IMPRESSION: 1. Small amount of pneumoperitoneum, compatible with recent surgery (i.e. within the last week). Recommend correlation with surgical history. 2. Small amount of perihepatic ascites. 3. Increased cystic focus and/or increased ascites within the left hemipelvis. This could be further assessed with ultrasound, if clinically indicated. 4. Bilateral pulmonary nodules, possibly indicating metastatic disease. 5. Small hiatal hernia associated with gastroesophageal reflux. 6. Cardiomegaly. Coronary artery disease. 7. No change in multiple low-density lesions within the pancreas. 8. Thickening of the right colon, consistent with infection, inflammation, or ischemia. 9. Thyroid nodules, which could be further assessed with ultrasound, if clinically indicated. Dictated by: Lona Lemus M.D. on 01/26/2022 at 14:48 Approved by: Lona Lemus M.D. on 01/26/2022 at 14:56
[2022-01-26 11:21] LABS: Add Manual Diff / Slide Review NO; Basophils Absolute Auto 100 /uL (0-100); Basophils Percent Auto 1.1 % (0-2); Eosinophils Absolute Auto 400 /uL (0-450); Eosinophils Percent Auto 4.2 % (2-4); Hematocrit 33.2 % (36-46); Lymphocytes Absolute Auto 700 /uL (1100-4500); Lymphocytes Percent Auto 7.2 % (25-40); Mean Corpuscular HGB Conc 33.2 % (30-36); Mean Corpuscular Volume 99.4 fL (80-100); Monocytes Absolute Auto 600 /uL (0-900); Monocytes Percent Auto 5.6 % (3-14); Neutrophils Absolute Auto 8400 /uL (1500-7000); Neutrophils Percent Auto 81.9 % (50-75); Platelet Count 293 X10^3/uL (150-400); Red Blood Cell Count 3.34 X10^6/uL (4.0-5.2); White Blood Cell Count 10.3 X10^3/uL (4.5-11.0)
[2022-01-26 11:51] LABS: Alanine Aminotransferase 15 IU/L (<35); Albumin 3.3 g/dL (3.5-5.0); Albumin Globulin Ratio 1.1 (1.0-2.8); Alkaline Phosphatase 121 U/L (38-126); Aspartate Aminotransferase 31 IU/L (14-36); BUN Creatinine Ratio 12.1 (6-22); Bilirubin Total 0.4 mg/dL (0.2-1.3); Blood Urea Nitrogen 37 mg/dL (7-17); Calcium 8.5 mg/dL (8.4-10.2); Carbon Dioxide 27 mmol/L (22-32); Chloride 99 mmol/L (98-107); Estimated Glomerular Filt Rate 15 mL/min (>60); Glucose 98 mg/dL (80-110); HEMOLYSIS 17 (0-50); Potassium 2.8 mmol/L (3.4-5.1); Sodium 135 mmol/L (137-145); Total Protein 6.3 g/dL (6.3-8.2)
== END ==
PROVIDERS: Family Provider Family Medicine; PCP Family Medicine; Referring Provider Internal Medicine Medical Oncology; Visit Provider Internal Medicine Medical Oncology
DX: C50.412 Malignant neoplasm of upper-outer quadrant of left female breast (principal); R18.8 Other ascites; R91.8 Other nonspecific abnormal finding of lung field; E04.2 Nontoxic multinodular goiter; K86.9 Disease of pancreas, unspecified; I25.10 Atherosclerotic heart disease of native coronary artery without angina pectoris; K44.9 Diaphragmatic hernia without obstruction or gangrene; K21.9 Gastro-esophageal reflux disease without esophagitis; I51.7 Cardiomegaly; Z17.1 Estrogen receptor negative status [ER-]
CPT/HCPCS: 36415; 71260; 74177; 80053; 85025; Q9967

== ENCOUNTER 2022-01-26 15:15 | Outpatient (RCR) | payer MEDICARE, OTHER, SELFPAY ==
[2021-08-04 14:29] VITALS: BMI 21.7
--- NOTE | 2021-09-21 16:24 | PT.OIE ---
Current Diagnoses Difficulty in walking, not elsewhere classified (09/21/21) Other abnormalities of gait and mobility (09/21/21) Past Medical History (Last Updated 07/13/21 @ 15:38 by Patel Wilkinson RN) Anxiety about health Back stiffness Balance problem Breast cancer in female Cervical somatic dysfunction Chronic nausea Chronic neck pain CKD (chronic kidney disease) (Unknown) Constipation Cranial somatic dysfunction CREST syndrome (Unknown) End stage renal failure on dialysis GERD (gastroesophageal reflux disease) (Unknown) Gout Hiatal hernia with gastroesophageal reflux disease and esophagitis History of rectal surgery Hyperkalemia Hyperlipemia (Unknown) Hypertension (Unknown) Localized swelling of left forearm Nausea with vomiting Osteopenia (~04/2016) Osteoporosis (~04/2016) Pain of left great toe Raynaud's disease (Unknown) Segmental and somatic dysfunction of abdomen and other regions Segmental and somatic dysfunction of abdomen and other regions Segmental and somatic dysfunction of pelvic region Segmental and somatic dysfunction of rib cage Segmental and somatic dysfunction of sacral region Segmental and somatic dysfunction of thoracic region Somatic dysfunction of right lower extremity Upper extremity somatic dysfunction Warfarin anticoagulation Past Surgical History (Last Reviewed 06/14/21 @ 13:50 by Maria R Larsen MA) History of cataract removal with insertion of prosthetic lens History of rectal surgery Status post breast biopsy Status post hysterectomy Status post tonsillectomy and adenoidectomy Visit Care Team Role Provider Type Todd Lanza DO Attending Provider Physician Family Provider Primary Care Provider Referring Provider Specialty: Family Practice Address: [address] [place] [address], [facility] Email: Physical Therapy Initial Evaluation PT-OP-A Visit Information Start: 09/14/21 12:03 Freq: Status: Active Protocol: Document 09/21/21 14:30 AW (Rec: 09/14/21 12:45 AW [id number]) Out-Patient Physical Therapy Visit Information Visit Information Visit Type Initial Evaluation Visit Start Time 14:30 Visit Stop Time 15:15 Total Visit Minutes 45 Visit Number 1 Evaluation Information Evaluation Date 09/21/21 PT-OP-B Current Condition Start: 09/14/21 12:03 Freq: Status: Active Protocol: Document 09/21/21 14:30 AW (Rec: 09/14/21 12:45 AW [id number]) Current Condition History of Current Condition Onset Date years Current Complaints poor endurance, decreased balance, falls History of Current Condition Yanni is most concerned with her endurance and reports she has not fallen in over one year. She is always tired and has a lousy appetite. She is followed by a labor and delivery registered nurse, is using a nutrition supplement, and is trying to eat more eggs for protein. She is using a 4WW for nearly all community mobility. At home, she uses no assistive device unless she is trying to carry items in which case she will use FWW with a tray attachment. She reports achey pain in her anterior thighs when she walks ; she has chronic back and neck pain. She underwent left mastectomy within the past year. She was not a candidate for adjuvant radiation due to pre-existing CREST syndrome and sceleroderma. She has a fib and is now on warfarin. She has renal failure and currently does peritoneal dialysis at home. Her daughter and daughter's have lived with her for >1 year. Pt currently manages all her ADL 's. Her daughter and son in law assist with IADL's. Daughter provides set up assist for peritoneal dialysis . Pt lives in single-level home with 4 PRASANTH and B rails. She has a hurrycane, 4WW, FWW, shower chair, lift recliner, flat bed with bed rails. Suction grab bars in shower. Prior Treatments and Tests Prior PT at this clinic for similar concerns Treatment Goals Patient/Caregiver Goals Stand long enough to bake. Energy enough to do laundry without assist. Increase endurance, strength, and balance Personal Factors Other Personal Factors That May Effect CREST syndrome, Raynaud's, Therapy/Recovery GERD, scleroderma, renal failure, osteoporosis, neck and back pain. PT-OP-C Subjective Start: 09/14/21 12:03 Freq: Status: Active Protocol: Document 09/21/21 14:30 AW (Rec: 09/21/21 16:06 AW [id number]) OP-PT Subjective Patient Comments Patient Comments I'm most concerned about my endurance. Patient Questionnaires ABC- Activity Specific Balance Confidence Scale ABC Score 71 ABC Functional Impairment 60 to <80% Impaired (Score 21- 40) OP-PT Pain Assessment Pain Assessment Grid Paper Pain Assessment Grid Completed Yes: scanned to EMR PT-OP-D Balance Start: 09/14/21 12:03 Freq: Status: Active Protocol: Document 09/21/21 14:30 AW (Rec: 09/21/21 16:06 AW [id number]) Balance Tests Romberg Romberg WNL EO; increased sway EC Tandem Tandem Standing unable PT-OP-E Functional Tests Start: 09/14/21 12:03 Freq: Status: Active Protocol: Document 09/21/21 14:30 AW (Rec: 09/21/21 16:06 AW [id number]) Functional Tests 2 Minute Walk Test Distance 380' in 3 minutes Device Used 4WW Comments 0.64 m/s average gait speed. 2 laps completed; 2nd lap took 3 more seconds PT-OP-G Mobility & Gait Start: 09/14/21 12:03 Freq: Status: Active Protocol: Document 09/21/21 14:30 AW (Rec: 09/21/21 16:06 AW [id number]) OP Mobility Evaluation Transfers Sit to Stand definite use of hands Bed to Chair Transfers SBA with increased time OP Gait Assessment Gait Gait Assistance Required: Standby Assistance Distance (Feet) 400 Assistive Devices Assistive Device Gait Belt,4 Wheeled Walker Gait Deviations General Gait Pattern Antalgic,Wide Based Gait Comments Gait Comments Pt uses 4WW to walk longer distances. She walks with bilateral hip external rotation, WBOS, and increased trunk flexion PT-OP-M Strength Start: 09/14/21 12:03 Freq: Status: Active Protocol: Document 09/21/21 14:30 AW (Rec: 09/21/21 16:06 AW [id number]) Hip Strength Hip Manual Muscle Testing Left Flexion (L2) 4 Good Extension (S1) 4- Good- Abduction 3+ Fair+ Right Flexion (L2) 4- Good- Extension (S1) 4- Good- Abduction 3 Fair Knee Strength Knee Manual Muscle Testing bilat Flexion (S2) 4- Good- Extension (L3) 4 Good Ankle/Foot Strength Ankle and Foot Manual Muscle Testing bilat Dorsiflexion (L4) 4 Good Plantarflexion (S1) 3+ Fair+ PT-OP-Q Treatments Start: 09/14/21 12:03 Freq: Status: Active Protocol: Document 09/21/21 14:30 AW (Rec: 09/21/21 16:24 AW [id number]) Therapeutic Exercises Other Exercises sit to stand Other Exercise Name sit to stand Equipment Used low tx table Reps/Minutes x5 Comments instructed pt in technique and pt able to complete last reps w/o UE support Gait Training Gait Activity Gait with RW Description timed walk Device Used 4WW Level of Assistance SBA Surface carpet and tile Distance/Duration 3 min/380 feet Treatment Focus assessment, endurance Self-Care/Home Management Treatment Education Patient Education Safety Activities Self-Care/Home Management Activities Educated pt and her daughter on evaluation findings and proposed plan of care centered on aerobic conditioning, strength, stability, balance, and gait training. All in agreement. PT-OP-T Assessment and Plan Start: 09/14/21 12:03 Freq: Status: Active Protocol: Document 09/21/21 14:30 AW (Rec: 09/21/21 16:24 AW [id number]) Physical Therapy Assessment Rehab Potential Rehabilitation Potential Fair Evaluation Complexity Number of Personal Factors/Comorbidities 3 or More Number of Body Systems Impaired 4 or More Clinical Presentation at Evaluation Evolving Impairments Impairments Activity Tolerance,Balance, Gait,Pain,Strength Other Concerns Fall Risk yes Goals Three Impairment gait Short Term Goal (STG) Yanni will complete 6 minute walk test using 4WW with no rest breaks STG Duration 5 weeks - 10/26/21 Penitentiary Goal (LTG) Yanni will improve 6MWT by 10% compared with performance on STG assessment LTG Duration 10 weeks - 11/30/21 Two Impairment strength Short Term Goal (STG) Yanni will improve her hip strength to 4/5 bilaterally to improve gait stability STG Duration 5 weeks - 10/26/21 Animal Skinner Goal (LTG) Yanni will improve her lower extremity strength to be able to ascend and descend a set of stairs without hip drop. LTG Duration 10 weeks - 11/30/21 One Impairment balance Penitentiary Goal (LTG) Pt will improve Carlin Balance Score by 6 points as a measure of reduced falls risk LTG Duration 10 weeks - 11/30/21 Assessment Summary Assessment Yanni attends outpatient PT with concerns for her endurance, balance, gait, and remote history of falls. She is unable to complete 6 Minute Walk Test with 4WW on assessment today, becoming mildly SOB and complaining of fatigue. Lower extremity weakness is likely contributing to her falls risk and history. She would benefit from skilled therapy to address lower extremity weakness, balance, gait, and conditioning deficits. Physical Therapy Plan Frequency and Duration Frequency of Treatment 2x/Week Duration of Treatment 10 weeks Plan of Care Start Date 09/21/21 Plan of Care End Date 11/30/21 Therapeutic Interventions Therapeutic Interventions Balance Training,Gait Training ,Home Exercise Program, Neuromuscular Re-education, Therapeutic Activities, Therapeutic Exercises Next Visit Focus/Plan Next Note Type Treatment Note Next Visit Plan aerobic conditioning, initiate supine or seated ther ex for HEP
--- NOTE | 2021-09-21 16:24 | PT.OPPOC ---
Physical, Occupational & Speech Therapy At [facility] Current Diagnoses Difficulty in walking, not elsewhere classified (09/21/21) Other abnormalities of gait and mobility (09/21/21) Visit Care Team Role Provider Type Todd Lanza DO Attending Provider Physician Family Provider Primary Care Provider Referring Provider Specialty: [facility] Practice Address: [address] [place] [address], [facility] Email: Plan Of Care PT-OP-T Assessment and Plan Start: 09/14/21 12:03 Freq: Status: Active Protocol: Document 09/21/21 14:30 AW (Rec: 09/21/21 16:24 AW [id number]) Physical Therapy Assessment Rehab Potential Rehabilitation Potential Fair Evaluation Complexity Number of Personal Factors/Comorbidities 3 or More Number of Body Systems Impaired 4 or More Clinical Presentation at Evaluation Evolving Impairments Impairments Activity Tolerance,Balance, Gait,Pain,Strength Other Concerns Fall Risk yes Goals Three Impairment gait Short Term Goal (STG) Yanni will complete 6 minute walk test using 4WW with no rest breaks STG Duration 5 weeks - 10/26/21 Optical Dispenser Goal (LTG) Yanni will improve 6MWT by 10% compared with performance on STG assessment LTG Duration 10 weeks - 11/30/21 Two Impairment strength Short Term Goal (STG) Yanni will improve her hip strength to 4/5 bilaterally to improve gait stability STG Duration 5 weeks - 10/26/21 Shelter Goal (LTG) Yanni will improve her lower extremity strength to be able to ascend and descend a set of stairs without hip drop. LTG Duration 10 weeks - 11/30/21 One Impairment balance Shelter Goal (LTG) Pt will improve Carlin Balance Score by 6 points as a measure of reduced falls risk LTG Duration 10 weeks - 11/30/21 Assessment Summary Assessment Yanni attends outpatient PT with concerns for her endurance, balance, gait, and remote history of falls. She is unable to complete 6 Minute Walk Test with 4WW on assessment today, becoming mildly SOB and complaining of fatigue. Lower extremity weakness is likely contributing to her falls risk and history. She would benefit from skilled therapy to address lower extremity weakness, balance, gait, and conditioning deficits. Physical Therapy Plan Frequency and Duration Frequency of Treatment 2x/Week Duration of Treatment 10 weeks Plan of Care Start Date 09/21/21 Plan of Care End Date 11/30/21 Therapeutic Interventions Therapeutic Interventions Balance Training,Gait Training ,Home Exercise Program, Neuromuscular Re-education, Therapeutic Activities, Therapeutic Exercises Next Visit Focus/Plan Next Note Type Treatment Note Next Visit Plan aerobic conditioning, initiate supine or seated ther ex for HEP Plan of Care Dates Plan of Care Start Date 09/21/21 Plan of Care End Date 11/30/21 Electronically Signed by: Rosemarie Matos, PT 09/21/21 [id number] Please Sign and Return: I have reviewed this Plan of Care and certify that the skilled therapy services above are required to meet the patient?s needs. Physician Signature Date Printed Name and Credentials Clinical Instructor Signature Printed Name and Credentials
--- NOTE | 2021-09-27 16:54 | PT.OTN ---
Current Diagnoses Difficulty in walking, not elsewhere classified (09/27/21) Other abnormalities of gait and mobility (09/27/21) Physical Therapy Treatment Note PT-OP-A Visit Information Start: 09/14/21 12:03 Freq: Status: Active Protocol: Document 09/27/21 16:02 AW (Rec: 09/27/21 16:54 AW [id number]) Out-Patient Physical Therapy Visit Information Visit Information Visit Type Aquatic Treatment Note Visit Start Time 16:00 Visit Stop Time 16:45 Total Visit Minutes 45 Visit Number 2 Evaluation Information Evaluation Date 09/21/21 PT-OP-B Current Condition Start: 09/14/21 12:03 Freq: Status: Active Protocol: Document 09/21/21 14:30 AW (Rec: 09/14/21 12:45 AW [id number]) Current Condition History of Current Condition Onset Date years Current Complaints poor endurance, decreased balance, falls History of Current Condition Yanni is most concerned with her endurance and reports she has not fallen in over one year. She is always tired and has a lousy appetite. She is followed by a diet technician registered, is using a nutrition supplement, and is trying to eat more eggs for protein. She is using a 4WW for nearly all community mobility. At home, she uses no assistive device unless she is trying to carry items in which case she will use FWW with a tray attachment. She reports achey pain in her anterior thighs when she walks ; she has chronic back and neck pain. She underwent left mastectomy within the past year. She was not a candidate for adjuvant radiation due to pre-existing CREST syndrome and sceleroderma. She has a fib and is now on warfarin. She has renal failure and currently does peritoneal dialysis at home. Her daughter and daughter's have lived with her for >1 year. Pt currently manages all her ADL 's. Her daughter and son in law assist with IADL's. Daughter provides set up assist for peritoneal dialysis . Pt lives in single-level home with 4 PRASANTH and B rails. She has a hurrycane, 4WW, FWW, shower chair, lift recliner, flat bed with bed rails. Suction grab bars in shower. Prior Treatments and Tests Prior PT at this clinic for similar concerns Treatment Goals Patient/Caregiver Goals Stand long enough to bake. Energy enough to do laundry without assist. Increase endurance, strength, and balance Personal Factors Other Personal Factors That May Effect CREST syndrome, Raynaud's, Therapy/Recovery GERD, scleroderma, renal failure, osteoporosis, neck and back pain. PT-OP-C Subjective Start: 09/14/21 12:03 Freq: Status: Active Protocol: Document 09/27/21 16:02 AW (Rec: 09/27/21 16:54 AW [id number]) OP-PT Subjective Patient Comments Patient Comments I had some abdominal pain this morning but not much to complain about now. PT-OP-D Balance Start: 09/14/21 12:03 Freq: Status: Active Protocol: Document 09/21/21 14:30 AW (Rec: 09/21/21 16:06 AW [id number]) Balance Tests Romberg Romberg WNL EO; increased sway EC Tandem Tandem Standing unable PT-OP-E Functional Tests Start: 09/14/21 12:03 Freq: Status: Active Protocol: Document 09/21/21 14:30 AW (Rec: 09/21/21 16:06 AW [id number]) Functional Tests 2 Minute Walk Test Distance 380' in 3 minutes Device Used 4WW Comments 0.64 m/s average gait speed. 2 laps completed; 2nd lap took 3 more seconds PT-OP-G Mobility & Gait Start: 09/14/21 12:03 Freq: Status: Active Protocol: Document 09/21/21 14:30 AW (Rec: 09/21/21 16:06 AW [id number]) OP Mobility Evaluation Transfers Sit to Stand definite use of hands Bed to Chair Transfers SBA with increased time OP Gait Assessment Gait Gait Assistance Required: Standby Assistance Distance (Feet) 400 Assistive Devices Assistive Device Gait Belt,4 Wheeled Walker Gait Deviations General Gait Pattern Antalgic,Wide Based Gait Comments Gait Comments Pt uses 4WW to walk longer distances. She walks with bilateral hip external rotation, WBOS, and increased trunk flexion PT-OP-M Strength Start: 09/14/21 12:03 Freq: Status: Active Protocol: Document 09/21/21 14:30 AW (Rec: 09/21/21 16:06 AW [id number]) Hip Strength Hip Manual Muscle Testing Left Flexion (L2) 4 Good Extension (S1) 4- Good- Abduction 3+ Fair+ Right Flexion (L2) 4- Good- Extension (S1) 4- Good- Abduction 3 Fair Knee Strength Knee Manual Muscle Testing bilat Flexion (S2) 4- Good- Extension (L3) 4 Good Ankle/Foot Strength Ankle and Foot Manual Muscle Testing bilat Dorsiflexion (L4) 4 Good Plantarflexion (S1) 3+ Fair+ PT-OP-Q Treatments Start: 09/14/21 12:03 Freq: Status: Active Protocol: Document 09/27/21 16:02 AW (Rec: 09/27/21 16:54 AW [id number]) Cardio Equipment Recumbent Stepper (Sci-Fit) Duration (Minutes) 6 Resistance 2 Seat Position 9 Therapeutic Exercises Supine Exercises bridge Supine Exercise Name bridge Reps/Minutes 2x10 Comments HEP supine clam Supine Exercise Name supine clam Side bilateral Resistance TB1 Reps/Minutes 2x10 Comments HEP SLR Supine Exercise Name SLR Side bilateral Resistance AROM Reps/Minutes 2x5 Comments HEP Standing Exercises mini squat Standing Exercise Name mini squat Equipment Used rail for UE support Reps/Minutes x10 Comments cues for hip hinge heel lift Standing Exercise Name heel raise Side bilateral Resistance AROM Reps/Minutes x10 Comments cued tall posture Other Exercises sit to stand Other Exercise Name sit to stand Equipment Used low tx table - 20 AND 19 Reps/Minutes 2x5 Comments able w/o UE support after pre- stand weight shift as warm up Neuro Re-Education Treatment Balance Activities corner balance Surface firm Equipment next to rail for prn support Comments 1 NBOS: head turns and nods 2. Stagger/stride stance: head turns and nods PT-OP-T Assessment and Plan Start: 09/14/21 12:03 Freq: Status: Active Protocol: Document 09/27/21 16:02 AW (Rec: 09/27/21 16:54 AW [id number]) Physical Therapy Assessment Goals Three Impairment gait Short Term Goal (STG) Yanni will complete 6 minute walk test using 4WW with no rest breaks STG Duration 5 weeks - 10/26/21 Detention Goal (LTG) Yanni will improve 6MWT by 10% compared with performance on STG assessment LTG Duration 10 weeks - 11/30/21 Two Impairment strength Short Term Goal (STG) Yanni will improve her hip strength to 4/5 bilaterally to improve gait stability STG Duration 5 weeks - 10/26/21 Detention Goal (LTG) Yanni will improve her lower extremity strength to be able to ascend and descend a set of stairs without hip drop. LTG Duration 10 weeks - 11/30/21 One Impairment balance Skin Installer Goal (LTG) Pt will improve Carlin Balance Score by 6 points as a measure of reduced falls risk LTG Duration 10 weeks - 11/30/21 Assessment Summary Assessment Yanni shows good effort with all activities today and tolerates ther ex and balance work well. Cues needed for controlled movement in all exercises. Pt improved sit to stand form today, especially with eccentric control. Physical Therapy Plan Frequency and Duration Frequency of Treatment 2x/Week Duration of Treatment 10 weeks Plan of Care Start Date 09/21/21 Plan of Care End Date 11/30/21 Therapeutic Interventions Therapeutic Interventions Balance Training,Gait Training ,Home Exercise Program, Neuromuscular Re-education, Therapeutic Activities, Therapeutic Exercises Next Visit Focus/Plan Next Note Type Treatment Note Next Visit Plan aerobic conditioning, assess response to initial HEP; progress as able
--- NOTE | 2021-09-29 10:27 | PT.OTN ---
Current Diagnoses Difficulty in walking, not elsewhere classified (09/29/21) Other abnormalities of gait and mobility (09/29/21) Physical Therapy Treatment Note PT-OP-A Visit Information Start: 09/14/21 12:03 Freq: Status: Active Protocol: Document 09/29/21 09:35 AW (Rec: 09/29/21 10:27 AW [id number]) Out-Patient Physical Therapy Visit Information Visit Information Visit Type Treatment Note Visit Start Time 09:45 Visit Stop Time 10:27 Total Visit Minutes 42 Visit Number 3 Evaluation Information Evaluation Date 09/21/21 PT-OP-B Current Condition Start: 09/14/21 12:03 Freq: Status: Active Protocol: Document 09/21/21 14:30 AW (Rec: 09/14/21 12:45 AW [id number]) Current Condition History of Current Condition Onset Date years Current Complaints poor endurance, decreased balance, falls History of Current Condition Yanni is most concerned with her endurance and reports she has not fallen in over one year. She is always tired and has a lousy appetite. She is followed by a registered representative, is using a nutrition supplement, and is trying to eat more eggs for protein. She is using a 4WW for nearly all community mobility. At home, she uses no assistive device unless she is trying to carry items in which case she will use FWW with a tray attachment. She reports achey pain in her anterior thighs when she walks ; she has chronic back and neck pain. She underwent left mastectomy within the past year. She was not a candidate for adjuvant radiation due to pre-existing CREST syndrome and sceleroderma. She has a fib and is now on warfarin. She has renal failure and currently does peritoneal dialysis at home. Her daughter and daughter's have lived with her for >1 year. Pt currently manages all her ADL 's. Her daughter and son in law assist with IADL's. Daughter provides set up assist for peritoneal dialysis . Pt lives in single-level home with 4 PRASANTH and B rails. She has a hurrycane, 4WW, FWW, shower chair, lift recliner, flat bed with bed rails. Suction grab bars in shower. Prior Treatments and Tests Prior PT at this clinic for similar concerns Treatment Goals Patient/Caregiver Goals Stand long enough to bake. Energy enough to do laundry without assist. Increase endurance, strength, and balance Personal Factors Other Personal Factors That May Effect CREST syndrome, Raynaud's, Therapy/Recovery GERD, scleroderma, renal failure, osteoporosis, neck and back pain. PT-OP-C Subjective Start: 09/14/21 12:03 Freq: Status: Active Protocol: Document 09/29/21 09:35 AW (Rec: 09/29/21 10:27 AW [id number]) OP-PT Subjective Patient Comments Patient Comments I'm not much of a morning person. PT-OP-D Balance Start: 09/14/21 12:03 Freq: Status: Active Protocol: Document 09/21/21 14:30 AW (Rec: 09/21/21 16:06 AW [id number]) Balance Tests Romberg Romberg WNL EO; increased sway EC Tandem Tandem Standing unable PT-OP-E Functional Tests Start: 09/14/21 12:03 Freq: Status: Active Protocol: Document 09/21/21 14:30 AW (Rec: 09/21/21 16:06 AW [id number]) Functional Tests 2 Minute Walk Test Distance 380' in 3 minutes Device Used 4WW Comments 0.64 m/s average gait speed. 2 laps completed; 2nd lap took 3 more seconds PT-OP-G Mobility & Gait Start: 09/14/21 12:03 Freq: Status: Active Protocol: Document 09/21/21 14:30 AW (Rec: 09/21/21 16:06 AW [id number]) OP Mobility Evaluation Transfers Sit to Stand definite use of hands Bed to Chair Transfers SBA with increased time OP Gait Assessment Gait Gait Assistance Required: Standby Assistance Distance (Feet) 400 Assistive Devices Assistive Device Gait Belt,4 Wheeled Walker Gait Deviations General Gait Pattern Antalgic,Wide Based Gait Comments Gait Comments Pt uses 4WW to walk longer distances. She walks with bilateral hip external rotation, WBOS, and increased trunk flexion PT-OP-M Strength Start: 09/14/21 12:03 Freq: Status: Active Protocol: Document 09/21/21 14:30 AW (Rec: 09/21/21 16:06 AW [id number]) Hip Strength Hip Manual Muscle Testing Left Flexion (L2) 4 Good Extension (S1) 4- Good- Abduction 3+ Fair+ Right Flexion (L2) 4- Good- Extension (S1) 4- Good- Abduction 3 Fair Knee Strength Knee Manual Muscle Testing bilat Flexion (S2) 4- Good- Extension (L3) 4 Good Ankle/Foot Strength Ankle and Foot Manual Muscle Testing bilat Dorsiflexion (L4) 4 Good Plantarflexion (S1) 3+ Fair+ PT-OP-Q Treatments Start: 09/14/21 12:03 Freq: Status: Active Protocol: Document 09/29/21 09:35 AW (Rec: 09/29/21 10:27 AW [id number]) Cardio Equipment Recumbent Stepper (Sci-Fit) Duration (Minutes) 6 Resistance 2 Seat Position 9 Other ~30 rpm; 0.45 mi Therapeutic Exercises Supine Exercises adduction squeeze Supine Exercise Name hip adduction squeeze Equipment Used sm green ball Reps/Minutes 2x10 bridge Supine Exercise Name bridge Reps/Minutes 2x10 Comments HEP supine clam Supine Exercise Name supine clam Side bilateral Resistance TB1 Reps/Minutes 2x10 Comments HEP SLR Supine Exercise Name SLR Side bilateral Resistance AROM Reps/Minutes 2x5 Comments HEP Therapeutic Activity Therapeutic Activity Carlin Name Carlin Reps/Minutes 10 min Comments Score PT-OP-T Assessment and Plan Start: 09/14/21 12:03 Freq: Status: Active Protocol: Document 09/29/21 09:35 AW (Rec: 09/29/21 10:27 AW [id number]) Physical Therapy Assessment Goals Three Impairment gait Short Term Goal (STG) Yanni will complete 6 minute walk test using 4WW with no rest breaks STG Duration 5 weeks - 10/26/21 Mcc Goal (LTG) Yanni will improve 6MWT by 10% compared with performance on STG assessment LTG Duration 10 weeks - 11/30/21 Two Impairment strength Short Term Goal (STG) Yanni will improve her hip strength to 4/5 bilaterally to improve gait stability STG Duration 5 weeks - 10/26/21 Railroad Car Inspector Goal (LTG) Yanni will improve her lower extremity strength to be able to ascend and descend a set of stairs without hip drop. LTG Duration 10 weeks - 11/30/21 One Impairment balance Mcc Goal (LTG) Pt will improve Carlin Balance Score by 6 points as a measure of reduced falls risk LTG Duration 10 weeks - 11/30/21 Assessment Summary Assessment Yanni is more tired and easier to fatigue today but participates well with fewer cues needed for form. Carlin score 40/56 indicates high risk of falls. Remaining appointments are afternoon which pt states is better for her. Physical Therapy Plan Frequency and Duration Frequency of Treatment 2x/Week Duration of Treatment 10 weeks Plan of Care Start Date 09/21/21 Plan of Care End Date 11/30/21 Therapeutic Interventions Therapeutic Interventions Balance Training,Gait Training ,Home Exercise Program, Neuromuscular Re-education, Therapeutic Activities, Therapeutic Exercises Next Visit Focus/Plan Next Note Type Treatment Note Next Visit Plan aerobic conditioning, assess response to HEP; progress as able
--- NOTE | 2021-10-04 13:00 | PT.OTN ---
Current Diagnoses Difficulty in walking, not elsewhere classified (10/04/21) Other abnormalities of gait and mobility (10/04/21) Physical Therapy Treatment Note PT-OP-A Visit Information Start: 09/14/21 12:03 Freq: Status: Active Protocol: Document 10/04/21 12:18 SP (Rec: 10/04/21 13:02 SP [id number]) Out-Patient Physical Therapy Visit Information Visit Information Visit Type Treatment Note Visit Start Time 12:18 Visit Stop Time 13:00 Total Visit Minutes 42 Visit Number 4 Number of PEDIATRIC LICENSED PRACTICAL NURSE Visits 1 Evaluation Information Evaluation Date 09/21/21 PT-OP-B Current Condition Start: 09/14/21 12:03 Freq: Status: Active Protocol: Document 09/21/21 14:30 AW (Rec: 09/14/21 12:45 AW [id number]) Current Condition History of Current Condition Onset Date years Current Complaints poor endurance, decreased balance, falls History of Current Condition Yanni is most concerned with her endurance and reports she has not fallen in over one year. She is always tired and has a lousy appetite. She is followed by a registered nurse bone marrow transplant, is using a nutrition supplement, and is trying to eat more eggs for protein. She is using a 4WW for nearly all community mobility. At home, she uses no assistive device unless she is trying to carry items in which case she will use FWW with a tray attachment. She reports achey pain in her anterior thighs when she walks ; she has chronic back and neck pain. She underwent left mastectomy within the past year. She was not a candidate for adjuvant radiation due to pre-existing CREST syndrome and sceleroderma. She has a fib and is now on warfarin. She has renal failure and currently does peritoneal dialysis at home. Her daughter and daughter's have lived with her for >1 year. Pt currently manages all her ADL 's. Her daughter and son in law assist with IADL's. Daughter provides set up assist for peritoneal dialysis . Pt lives in single-level home with 4 PRASANTH and B rails. She has a hurrycane, 4WW, FWW, shower chair, lift recliner, flat bed with bed rails. Suction grab bars in shower. Prior Treatments and Tests Prior PT at this clinic for similar concerns Treatment Goals Patient/Caregiver Goals Stand long enough to bake. Energy enough to do laundry without assist. Increase endurance, strength, and balance Personal Factors Other Personal Factors That May Effect CREST syndrome, Raynaud's, Therapy/Recovery GERD, scleroderma, renal failure, osteoporosis, neck and back pain. PT-OP-C Subjective Start: 09/14/21 12:03 Freq: Status: Active Protocol: Document 10/04/21 12:18 SP (Rec: 10/04/21 13:02 SP [id number]) OP-PT Subjective Patient Comments Patient Comments Pt stated was pretty tired after last tx. The mornings are hard to get going, prefer afternoon appts. She states compliant with HEP. Pt states is ableto do her own shower now. Had ECHO dont 3 mo ago. Talks to her. PT-OP-D Balance Start: 09/14/21 12:03 Freq: Status: Active Protocol: Document 09/21/21 14:30 AW (Rec: 09/21/21 16:06 AW [id number]) Balance Tests Romberg Romberg WNL EO; increased sway EC Tandem Tandem Standing unable PT-OP-E Functional Tests Start: 09/14/21 12:03 Freq: Status: Active Protocol: Document 09/21/21 14:30 AW (Rec: 09/21/21 16:06 AW [id number]) Functional Tests 2 Minute Walk Test Distance 380' in 3 minutes Device Used 4WW Comments 0.64 m/s average gait speed. 2 laps completed; 2nd lap took 3 more seconds PT-OP-G Mobility & Gait Start: 09/14/21 12:03 Freq: Status: Active Protocol: Document 09/21/21 14:30 AW (Rec: 09/21/21 16:06 AW [id number]) OP Mobility Evaluation Transfers Sit to Stand definite use of hands Bed to Chair Transfers SBA with increased time OP Gait Assessment Gait Gait Assistance Required: Standby Assistance Distance (Feet) 400 Assistive Devices Assistive Device Gait Belt,4 Wheeled Walker Gait Deviations General Gait Pattern Antalgic,Wide Based Gait Comments Gait Comments Pt uses 4WW to walk longer distances. She walks with bilateral hip external rotation, WBOS, and increased trunk flexion PT-OP-M Strength Start: 09/14/21 12:03 Freq: Status: Active Protocol: Document 09/21/21 14:30 AW (Rec: 09/21/21 16:06 AW [id number]) Hip Strength Hip Manual Muscle Testing Left Flexion (L2) 4 Good Extension (S1) 4- Good- Abduction 3+ Fair+ Right Flexion (L2) 4- Good- Extension (S1) 4- Good- Abduction 3 Fair Knee Strength Knee Manual Muscle Testing bilat Flexion (S2) 4- Good- Extension (L3) 4 Good Ankle/Foot Strength Ankle and Foot Manual Muscle Testing bilat Dorsiflexion (L4) 4 Good Plantarflexion (S1) 3+ Fair+ PT-OP-Q Treatments Start: 09/14/21 12:03 Freq: Status: Active Protocol: Document 10/04/21 12:18 SP (Rec: 10/04/21 13:02 SP [id number]) Cardio Equipment Recumbent Stepper (Sci-Fit) Duration (Minutes) 6 Resistance 2 Seat Position 8 Other ~30 rpm; 0.47 mi Therapeutic Exercises Supine Exercises bridge Supine Exercise Name bridge Resistance AROM Reps/Minutes 2x10 Comments HEP reviewed-cued maintain space between knees supine clam Supine Exercise Name supine clam-HEP reviewed Side bilateral Resistance TB1 Reps/Minutes 2x10 Comments good slow pacing control. SLR Supine Exercise Name SLR- HEP reviewed Side bilateral Resistance AROM Reps/Minutes x10 (slight lag last 2 reps) Comments cued quad fac/ knee extension then lift each rep Standing Exercises side stepping Standing Exercise Name added to HEP Side bilateral Equipment Used rail contact as needed, didn't need Reps/Minutes 20 ft x1 laps before required seated rest Comments cued tall posture mini squat Standing Exercise Name mini squat- reviewed Equipment Used rail for UE support Reps/Minutes x10 Comments cues for hip hinge heel lift Standing Exercise Name heel raise- added to HEP Side bilateral Resistance AROM Reps/Minutes x10 Comments cued tall posture Other Exercises sit to stand Other Exercise Name sit to stand- added to HEP Equipment Used 18 mesh chair no UE support ( arms front) Reps/Minutes 2x5 (2nd set, 5 reps in 27 sec ) Comments forward wt shift/ hip hinge, little plot at bottom descent, cued slow Therapeutic Activity Therapeutic Activity supine>sit Reps/Minutes 1 Comments struggles without rail for UE support, able to do self pushing from table after 3 attempts. Uses rail at home sup>sit. Gait Training Gait Activity Gait with RW Description decreased stance time on LLE, BLE end 3 min Device Used 4WW Level of Assistance SBA Surface carpet and tile Distance/Duration 3 min/302 feet Treatment Focus equal stance time, foot clearance, edurance. Comments decreased 78 ft from past assessment. Self-Care/Home Management Treatment Education Patient Education Body Mechanics,Posture Other Education Initiated side stepping at counter/ rail, contact PRN. PT-OP-T Assessment and Plan Start: 09/14/21 12:03 Freq: Status: Active Protocol: Document 10/04/21 12:18 SP (Rec: 10/04/21 13:02 SP [id number]) Physical Therapy Assessment Goals Three Impairment gait Short Term Goal (STG) Yanni will complete 6 minute walk test using 4WW with no rest breaks STG Duration 5 weeks - 10/26/21 Special Procedure Tech Goal (LTG) Yanni will improve 6MWT by 10% compared with performance on STG assessment LTG Duration 10 weeks - 11/30/21 Two Impairment strength Short Term Goal (STG) Yanni will improve her hip strength to 4/5 bilaterally to improve gait stability STG Duration 5 weeks - 10/26/21 Special Procedure Tech Goal (LTG) Yanni will improve her lower extremity strength to be able to ascend and descend a set of stairs without hip drop. LTG Duration 10 weeks - 11/30/21 One Impairment balance Senior Care Goal (LTG) Pt will improve Carlin Balance Score by 6 points as a measure of reduced falls risk LTG Duration 10 weeks - 11/30/21 Assessment Summary Assessment Pt worked hard throughout tx, took brief rests for breath and tiring recovery. Good recall to HEP in supine, occasional cues for proper form. Initiated AROM side stepping, reviewed STS's and heel raises for visual for HEP recall at home. Physical Therapy Plan Frequency and Duration Frequency of Treatment 2x/Week Duration of Treatment 10 weeks Plan of Care Start Date 09/21/21 Plan of Care End Date 11/30/21 Therapeutic Interventions Therapeutic Interventions Balance Training,Gait Training ,Home Exercise Program, Neuromuscular Re-education, Therapeutic Activities, Therapeutic Exercises Next Visit Focus/Plan Next Note Type Treatment Note Next Visit Plan Assess response to last tx. Recheck standing HEP. POC: Continue aerobic conditioning, assess response to HEP; progress as able
--- NOTE | 2021-10-06 14:30 | PT.OTN ---
Current Diagnoses Difficulty in walking, not elsewhere classified (10/06/21) Other abnormalities of gait and mobility (10/06/21) Physical Therapy Treatment Note PT-OP-A Visit Information Start: 09/14/21 12:03 Freq: Status: Active Protocol: Document 10/06/21 14:24 AW (Rec: 10/06/21 14:30 AW [id number]) Out-Patient Physical Therapy Visit Information Visit Information Visit Type Treatment Note Visit Start Time 13:45 Visit Stop Time 14:24 Total Visit Minutes 39 Visit Number 5 Number of OIL DISPENSER Visits 0 Evaluation Information Evaluation Date 09/21/21 PT-OP-B Current Condition Start: 09/14/21 12:03 Freq: Status: Active Protocol: Document 09/21/21 14:30 AW (Rec: 09/14/21 12:45 AW [id number]) Current Condition History of Current Condition Onset Date years Current Complaints poor endurance, decreased balance, falls History of Current Condition Yanni is most concerned with her endurance and reports she has not fallen in over one year. She is always tired and has a lousy appetite. She is followed by a clinical registered nurse, is using a nutrition supplement, and is trying to eat more eggs for protein. She is using a 4WW for nearly all community mobility. At home, she uses no assistive device unless she is trying to carry items in which case she will use FWW with a tray attachment. She reports achey pain in her anterior thighs when she walks ; she has chronic back and neck pain. She underwent left mastectomy within the past year. She was not a candidate for adjuvant radiation due to pre-existing CREST syndrome and sceleroderma. She has a fib and is now on warfarin. She has renal failure and currently does peritoneal dialysis at home. Her daughter and daughter's have lived with her for >1 year. Pt currently manages all her ADL 's. Her daughter and son in law assist with IADL's. Daughter provides set up assist for peritoneal dialysis . Pt lives in single-level home with 4 PRASANTH and B rails. She has a hurrycane, 4WW, FWW, shower chair, lift recliner, flat bed with bed rails. Suction grab bars in shower. Prior Treatments and Tests Prior PT at this clinic for similar concerns Treatment Goals Patient/Caregiver Goals Stand long enough to bake. Energy enough to do laundry without assist. Increase endurance, strength, and balance Personal Factors Other Personal Factors That May Effect CREST syndrome, Raynaud's, Therapy/Recovery GERD, scleroderma, renal failure, osteoporosis, neck and back pain. PT-OP-C Subjective Start: 09/14/21 12:03 Freq: Status: Active Protocol: Document 10/06/21 14:24 AW (Rec: 10/06/21 14:30 AW [id number]) OP-PT Subjective Patient Comments Patient Comments Feeling better with a PM appointment. Still feeling worn out after tx but not deterred. ECHO postponed until 10/21 PT-OP-D Balance Start: 09/14/21 12:03 Freq: Status: Active Protocol: Document 09/21/21 14:30 AW (Rec: 09/21/21 16:06 AW [id number]) Balance Tests Romberg Romberg WNL EO; increased sway EC Tandem Tandem Standing unable PT-OP-E Functional Tests Start: 09/14/21 12:03 Freq: Status: Active Protocol: Document 09/21/21 14:30 AW (Rec: 09/21/21 16:06 AW [id number]) Functional Tests 2 Minute Walk Test Distance 380' in 3 minutes Device Used 4WW Comments 0.64 m/s average gait speed. 2 laps completed; 2nd lap took 3 more seconds PT-OP-G Mobility & Gait Start: 09/14/21 12:03 Freq: Status: Active Protocol: Document 09/21/21 14:30 AW (Rec: 09/21/21 16:06 AW [id number]) OP Mobility Evaluation Transfers Sit to Stand definite use of hands Bed to Chair Transfers SBA with increased time OP Gait Assessment Gait Gait Assistance Required: Standby Assistance Distance (Feet) 400 Assistive Devices Assistive Device Gait Belt,4 Wheeled Walker Gait Deviations General Gait Pattern Antalgic,Wide Based Gait Comments Gait Comments Pt uses 4WW to walk longer distances. She walks with bilateral hip external rotation, WBOS, and increased trunk flexion PT-OP-M Strength Start: 09/14/21 12:03 Freq: Status: Active Protocol: Document 09/21/21 14:30 AW (Rec: 09/21/21 16:06 AW [id number]) Hip Strength Hip Manual Muscle Testing Left Flexion (L2) 4 Good Extension (S1) 4- Good- Abduction 3+ Fair+ Right Flexion (L2) 4- Good- Extension (S1) 4- Good- Abduction 3 Fair Knee Strength Knee Manual Muscle Testing bilat Flexion (S2) 4- Good- Extension (L3) 4 Good Ankle/Foot Strength Ankle and Foot Manual Muscle Testing bilat Dorsiflexion (L4) 4 Good Plantarflexion (S1) 3+ Fair+ PT-OP-Q Treatments Start: 09/14/21 12:03 Freq: Status: Active Protocol: Document 10/06/21 14:24 AW (Rec: 10/06/21 14:30 AW [id number]) Cardio Equipment Recumbent Stepper (Sci-Fit) Duration (Minutes) 6 Resistance 2 Seat Position 8 Other ~30 rpm; 0.47 mi Therapeutic Exercises Standing Exercises hip extension Standing Exercise Name hip extension Side bilateral Resistance AROM Reps/Minutes x10 Comments cues to limit fwd lean; clinic only side stepping Standing Exercise Name HEP Side bilateral Equipment Used no UE support Reps/Minutes 20 ft x 2; 20' x 1 Comments cued toes fwd mini squat Standing Exercise Name mini squat- reviewed Equipment Used rail for UE support Reps/Minutes 2x10 Comments cues for hip hinge heel lift Standing Exercise Name heel raise- HEP review Side bilateral Resistance AROM Reps/Minutes x12 Comments cued tall posture Other Exercises sit to stand Other Exercise Name sit to stand- added to HEP Equipment Used 18 mesh chair no UE support ( arms front) Reps/Minutes 2x5; 2nd set 26.6 sec and reporting fatigue Comments forward wt shift/ hip hinge, little plot at bottom descent, cued slow Gait Training Gait Activity Gait with RW Device Used 4WW Level of Assistance SBA Surface carpet and tile Distance/Duration 3 min 42 sec/390 feet Treatment Focus equal stance time, foot clearance, edurance. Comments 2 laps - second lap time was 10 sec longer than first. Self-Care/Home Management Treatment Education Other Education Educated pt to split up HEP into manageable chunks, spending no more than 15 minutes at a time at home for energy conservation. PT-OP-T Assessment and Plan Start: 09/14/21 12:03 Freq: Status: Active Protocol: Document 10/06/21 14:24 AW (Rec: 10/06/21 14:30 AW [id number]) Physical Therapy Assessment Goals Three Impairment gait Short Term Goal (STG) Yanni will complete 6 minute walk test using 4WW with no rest breaks STG Duration 5 weeks - 10/26/21 Skilled Nursing Goal (LTG) Yanni will improve 6MWT by 10% compared with performance on STG assessment LTG Duration 10 weeks - 11/30/21 Two Impairment strength Short Term Goal (STG) Yanni will improve her hip strength to 4/5 bilaterally to improve gait stability STG Duration 5 weeks - 10/26/21 Bobcat Operator Goal (LTG) Yanni will improve her lower extremity strength to be able to ascend and descend a set of stairs without hip drop. LTG Duration 10 weeks - 11/30/21 One Impairment balance Skilled Nursing Goal (LTG) Pt will improve Carlin Balance Score from 40/56 to 46/56 points or greater as a measure of reduced falls risk LTG Duration 10 weeks - 11/30/21 Assessment Summary Assessment Pt shows good effort and takes only brief rest breaks but was quick to fatigue today. Discussed gradual increase in load at therapy and splitting HEP into 15-minute chunks at home for energy conservation. Physical Therapy Plan Frequency and Duration Frequency of Treatment 2x/Week Duration of Treatment 10 weeks Plan of Care Start Date 09/21/21 Plan of Care End Date 11/30/21 Therapeutic Interventions Therapeutic Interventions Balance Training,Gait Training ,Home Exercise Program, Neuromuscular Re-education, Therapeutic Activities, Therapeutic Exercises Next Visit Focus/Plan Next Note Type Treatment Note Next Visit Plan Assess response to last tx. Recheck standing HEP. POC: Continue aerobic conditioning, assess response to HEP; progress as able
--- NOTE | 2021-10-11 13:00 | PT.OTN ---
Current Diagnoses Difficulty in walking, not elsewhere classified (10/11/21) Other abnormalities of gait and mobility (10/11/21) Physical Therapy Treatment Note PT-OP-A Visit Information Start: 09/14/21 12:03 Freq: Status: Active Protocol: Document 10/11/21 12:16 SP (Rec: 10/11/21 13:01 SP [id number]) Out-Patient Physical Therapy Visit Information Visit Information Visit Type Treatment Note Visit Start Time 12:16 Visit Stop Time 13:00 Total Visit Minutes 44 Visit Number 6 Number of BOWLING BALL MOLDER Visits 1 Evaluation Information Evaluation Date 09/21/21 PT-OP-B Current Condition Start: 09/14/21 12:03 Freq: Status: Active Protocol: Document 09/21/21 14:30 AW (Rec: 09/14/21 12:45 AW [id number]) Current Condition History of Current Condition Onset Date years Current Complaints poor endurance, decreased balance, falls History of Current Condition Yanni is most concerned with her endurance and reports she has not fallen in over one year. She is always tired and has a lousy appetite. She is followed by a registered nurse cardiac telemetry, is using a nutrition supplement, and is trying to eat more eggs for protein. She is using a 4WW for nearly all community mobility. At home, she uses no assistive device unless she is trying to carry items in which case she will use FWW with a tray attachment. She reports achey pain in her anterior thighs when she walks ; she has chronic back and neck pain. She underwent left mastectomy within the past year. She was not a candidate for adjuvant radiation due to pre-existing CREST syndrome and sceleroderma. She has a fib and is now on warfarin. She has renal failure and currently does peritoneal dialysis at home. Her daughter and daughter's have lived with her for >1 year. Pt currently manages all her ADL 's. Her daughter and son in law assist with IADL's. Daughter provides set up assist for peritoneal dialysis . Pt lives in single-level home with 4 PRASANTH and B rails. She has a hurrycane, 4WW, FWW, shower chair, lift recliner, flat bed with bed rails. Suction grab bars in shower. Prior Treatments and Tests Prior PT at this clinic for similar concerns Treatment Goals Patient/Caregiver Goals Stand long enough to bake. Energy enough to do laundry without assist. Increase endurance, strength, and balance Personal Factors Other Personal Factors That May Effect CREST syndrome, Raynaud's, Therapy/Recovery GERD, scleroderma, renal failure, osteoporosis, neck and back pain. PT-OP-C Subjective Start: 09/14/21 12:03 Freq: Status: Active Protocol: Document 10/11/21 12:16 SP (Rec: 10/11/21 13:01 SP [id number]) OP-PT Subjective Patient Comments Patient Comments Pt states sees physician to discuss ECHO had done on the . Pt states doing better about doing exercises little throughout the day. Will see how much energy have today. PT-OP-D Balance Start: 09/14/21 12:03 Freq: Status: Active Protocol: Document 09/21/21 14:30 AW (Rec: 09/21/21 16:06 AW [id number]) Balance Tests Romberg Romberg WNL EO; increased sway EC Tandem Tandem Standing unable PT-OP-E Functional Tests Start: 09/14/21 12:03 Freq: Status: Active Protocol: Document 09/21/21 14:30 AW (Rec: 09/21/21 16:06 AW [id number]) Functional Tests 2 Minute Walk Test Distance 380' in 3 minutes Device Used 4WW Comments 0.64 m/s average gait speed. 2 laps completed; 2nd lap took 3 more seconds PT-OP-G Mobility & Gait Start: 09/14/21 12:03 Freq: Status: Active Protocol: Document 09/21/21 14:30 AW (Rec: 09/21/21 16:06 AW [id number]) OP Mobility Evaluation Transfers Sit to Stand definite use of hands Bed to Chair Transfers SBA with increased time OP Gait Assessment Gait Gait Assistance Required: Standby Assistance Distance (Feet) 400 Assistive Devices Assistive Device Gait Belt,4 Wheeled Walker Gait Deviations General Gait Pattern Antalgic,Wide Based Gait Comments Gait Comments Pt uses 4WW to walk longer distances. She walks with bilateral hip external rotation, WBOS, and increased trunk flexion PT-OP-M Strength Start: 09/14/21 12:03 Freq: Status: Active Protocol: Document 09/21/21 14:30 AW (Rec: 09/21/21 16:06 AW [id number]) Hip Strength Hip Manual Muscle Testing Left Flexion (L2) 4 Good Extension (S1) 4- Good- Abduction 3+ Fair+ Right Flexion (L2) 4- Good- Extension (S1) 4- Good- Abduction 3 Fair Knee Strength Knee Manual Muscle Testing bilat Flexion (S2) 4- Good- Extension (L3) 4 Good Ankle/Foot Strength Ankle and Foot Manual Muscle Testing bilat Dorsiflexion (L4) 4 Good Plantarflexion (S1) 3+ Fair+ PT-OP-Q Treatments Start: 09/14/21 12:03 Freq: Status: Active Protocol: Document 10/11/21 12:16 SP (Rec: 10/11/21 13:01 SP [id number]) Cardio Equipment Recumbent Stepper (Sci-Fit) Duration (Minutes) 6 Resistance 2 Seat Position 8 Other UEs/ LEs~38 rpm; 0. 56min Therapeutic Exercises Standing Exercises hip extension Standing Exercise Name hip extension- added to HEP Side bilateral Resistance AROM Reps/Minutes x10 Comments good self corrections upright trunk, no lean, slow con/ eccentric side stepping Standing Exercise Name HEP Side bilateral Equipment Used no UE support Reps/Minutes 20 ft x 2; 20' x 2 rest between sets Comments cued toes fwd mini squat Standing Exercise Name mini squat- reviewed HEP Equipment Used rail for UE support Reps/Minutes x12, x10 Comments cues for hip hinge, buttocks back- cued breath rec btwn sets heel lift Standing Exercise Name heel raise- HEP review Side bilateral Resistance AROM Reps/Minutes x15 Comments cued tall posture Gait Training Gait Activity Gait with RW Description decreased stance time on LLE Device Used 4WW Level of Assistance SBA Surface carpet and tile Distance/Duration 2 min 37 sec/320 feet ( 2 laps ) Treatment Focus equal stance time, foot clearance, edurance. Comments 2 laps - second lap time was 77 sec longer than first. Neuro Re-Education Treatment Balance Activities cathie stepping Details f/b/side Surface firm Equipment 1 cathie, rail PRN Comments cued slow eccentric heel strike w/ RLE. PT-OP-T Assessment and Plan Start: 09/14/21 12:03 Freq: Status: Active Protocol: Document 10/11/21 12:16 SP (Rec: 10/11/21 13:01 SP [id number]) Physical Therapy Assessment Goals Three Impairment gait Short Term Goal (STG) Yanni will complete 6 minute walk test using 4WW with no rest breaks STG Duration 5 weeks - 10/26/21 [facility] Goal (LTG) Yanni will improve 6MWT by 10% compared with performance on STG assessment LTG Duration 10 weeks - 11/30/21 Two Impairment strength Short Term Goal (STG) Yanni will improve her hip strength to 4/5 bilaterally to improve gait stability STG Duration 5 weeks - 10/26/21 Home Health Clinical Liaison Goal (LTG) Yanni will improve her lower extremity strength to be able to ascend and descend a set of stairs without hip drop. LTG Duration 10 weeks - 11/30/21 One Impairment balance Home Health Clinical Liaison Goal (LTG) Pt will improve Carlin Balance Score from 40/56 to 46/56 points or greater as a measure of reduced falls risk LTG Duration 10 weeks - 11/30/21 Assessment Summary Assessment Pt worked hard, only brief rests recovery between sets ex and post gait. Cathie stepping SLS on LLE challenging, cued soft heel strike but weakness in LLE. Improved endurance this tx. Physical Therapy Plan Frequency and Duration Frequency of Treatment 2x/Week Duration of Treatment 10 weeks Plan of Care Start Date 09/21/21 Plan of Care End Date 11/30/21 Therapeutic Interventions Therapeutic Interventions Balance Training,Gait Training ,Home Exercise Program, Neuromuscular Re-education, Therapeutic Activities, Therapeutic Exercises Next Visit Focus/Plan Next Note Type Treatment Note Next Visit Plan Assess response to last tx. Recheck standing HEP. POC: Continue aerobic conditioning, assess response to HEP; progress as able
--- NOTE | 2021-10-13 14:30 | PT.OTN ---
Current Diagnoses Difficulty in walking, not elsewhere classified (10/13/21) Other abnormalities of gait and mobility (10/13/21) Physical Therapy Treatment Note PT-OP-A Visit Information Start: 09/14/21 12:03 Freq: Status: Active Protocol: Document 10/13/21 12:55 AW (Rec: 10/13/21 14:30 AW [id number]) Out-Patient Physical Therapy Visit Information Visit Information Visit Type Treatment Note Visit Start Time 13:45 Visit Stop Time 14:25 Total Visit Minutes 40 Visit Number 7 Number of PICKLING OPERATOR Visits 0 Evaluation Information Evaluation Date 09/21/21 PT-OP-B Current Condition Start: 09/14/21 12:03 Freq: Status: Active Protocol: Document 09/21/21 14:30 AW (Rec: 09/14/21 12:45 AW [id number]) Current Condition History of Current Condition Onset Date years Current Complaints poor endurance, decreased balance, falls History of Current Condition Yanni is most concerned with her endurance and reports she has not fallen in over one year. She is always tired and has a lousy appetite. She is followed by a dispatch manager, is using a nutrition supplement, and is trying to eat more eggs for protein. She is using a 4WW for nearly all community mobility. At home, she uses no assistive device unless she is trying to carry items in which case she will use FWW with a tray attachment. She reports achey pain in her anterior thighs when she walks ; she has chronic back and neck pain. She underwent left mastectomy within the past year. She was not a candidate for adjuvant radiation due to pre-existing CREST syndrome and sceleroderma. She has a fib and is now on warfarin. She has renal failure and currently does peritoneal dialysis at home. Her daughter and daughter's have lived with her for >1 year. Pt currently manages all her ADL 's. Her daughter and son in law assist with IADL's. Daughter provides set up assist for peritoneal dialysis . Pt lives in single-level home with 4 PRASANTH and B rails. She has a hurrycane, 4WW, FWW, shower chair, lift recliner, flat bed with bed rails. Suction grab bars in shower. Prior Treatments and Tests Prior PT at this clinic for similar concerns Treatment Goals Patient/Caregiver Goals Stand long enough to bake. Energy enough to do laundry without assist. Increase endurance, strength, and balance Personal Factors Other Personal Factors That May Effect CREST syndrome, Raynaud's, Therapy/Recovery GERD, scleroderma, renal failure, osteoporosis, neck and back pain. PT-OP-C Subjective Start: 09/14/21 12:03 Freq: Status: Active Protocol: Document 10/13/21 12:55 AW (Rec: 10/13/21 14:30 AW [id number]) OP-PT Subjective Patient Comments Patient Comments I feel like I have a little more oomph this week. PT-OP-D Balance Start: 09/14/21 12:03 Freq: Status: Active Protocol: Document 09/21/21 14:30 AW (Rec: 09/21/21 16:06 AW [id number]) Balance Tests Romberg Romberg WNL EO; increased sway EC Tandem Tandem Standing unable PT-OP-E Functional Tests Start: 09/14/21 12:03 Freq: Status: Active Protocol: Document 09/21/21 14:30 AW (Rec: 09/21/21 16:06 AW [id number]) Functional Tests 2 Minute Walk Test Distance 380' in 3 minutes Device Used 4WW Comments 0.64 m/s average gait speed. 2 laps completed; 2nd lap took 3 more seconds PT-OP-G Mobility & Gait Start: 09/14/21 12:03 Freq: Status: Active Protocol: Document 09/21/21 14:30 AW (Rec: 09/21/21 16:06 AW [id number]) OP Mobility Evaluation Transfers Sit to Stand definite use of hands Bed to Chair Transfers SBA with increased time OP Gait Assessment Gait Gait Assistance Required: Standby Assistance Distance (Feet) 400 Assistive Devices Assistive Device Gait Belt,4 Wheeled Walker Gait Deviations General Gait Pattern Antalgic,Wide Based Gait Comments Gait Comments Pt uses 4WW to walk longer distances. She walks with bilateral hip external rotation, WBOS, and increased trunk flexion PT-OP-M Strength Start: 09/14/21 12:03 Freq: Status: Active Protocol: Document 09/21/21 14:30 AW (Rec: 09/21/21 16:06 AW [id number]) Hip Strength Hip Manual Muscle Testing Left Flexion (L2) 4 Good Extension (S1) 4- Good- Abduction 3+ Fair+ Right Flexion (L2) 4- Good- Extension (S1) 4- Good- Abduction 3 Fair Knee Strength Knee Manual Muscle Testing bilat Flexion (S2) 4- Good- Extension (L3) 4 Good Ankle/Foot Strength Ankle and Foot Manual Muscle Testing bilat Dorsiflexion (L4) 4 Good Plantarflexion (S1) 3+ Fair+ PT-OP-Q Treatments Start: 09/14/21 12:03 Freq: Status: Active Protocol: Document 10/13/21 12:55 AW (Rec: 10/13/21 14:30 AW [id number]) Cardio Equipment Recumbent Stepper (Sci-Fit) Duration (Minutes) 6 Resistance 2 Seat Position 8 Other UEs/ LEs 35-40 rpm; Therapeutic Exercises Standing Exercises step up Standing Exercise Name fwd and lateral Side bilateral Equipment Used 6 step; fingertip support // Reps/Minutes x8 hip extension Standing Exercise Name hip extension- review Side bilateral Resistance AROM Reps/Minutes x10 Comments good self corrections upright trunk, no lean, slow con/ eccentric side stepping Standing Exercise Name HEP Side bilateral Equipment Used no UE support Reps/Minutes 20 ft x 2; 20' x 2 rest between sets Comments cued toes fwd mini squat Standing Exercise Name mini squat- reviewed HEP Equipment Used rail for UE support Reps/Minutes x12, x10 Comments cues for hip hinge, buttocks back- cued breath rec btwn sets heel lift Standing Exercise Name heel raise- HEP review Side bilateral Resistance AROM Reps/Minutes x15 Comments cued tall posture Other Exercises sit to stand Other Exercise Name sit to stand Equipment Used 18 mesh chair no UE support ( arms front) Reps/Minutes 1x10 Comments forward wt shift/ hip hinge, little plot at bottom descent, cued slow Gait Training Gait Activity Gait with RW Description decreased stance time on LLE Device Used 4WW Level of Assistance SBA Surface carpet and tile Distance/Duration 3 min 3 sec/390 feet Treatment Focus equal stance time, foot clearance, edurance. Comments 2 laps - second lap time was 4 sec longer than first. Pt appreciates feedback of results. Neuro Re-Education Treatment Balance Activities uneven surface Surface blue foam Comments - WBOS - EO with head turns and nods near // but pt only contacts intermittently cathie stepping Details f/b/side Surface firm Equipment 2 hurdles, CGA, no rail Comments cued slow eccentric heel strike w/ BLE. PT-OP-T Assessment and Plan Start: 09/14/21 12:03 Freq: Status: Active Protocol: Document 10/13/21 12:55 AW (Rec: 10/13/21 14:30 AW [id number]) Physical Therapy Assessment Goals Three Impairment gait Short Term Goal (STG) Yanni will complete 6 minute walk test using 4WW with no rest breaks STG Duration 5 weeks - 10/26/21 Grassland Conservationist Goal (LTG) Yanni will improve 6MWT by 10% compared with performance on STG assessment LTG Duration 10 weeks - 11/30/21 Two Impairment strength Short Term Goal (STG) Yanni will improve her hip strength to 4/5 bilaterally to improve gait stability STG Duration 5 weeks - 10/26/21 [facility]it[facility]iary Goal (LTG) Yanni will improve her lower extremity strength to be able to ascend and descend a set of stairs without hip drop. LTG Duration 10 weeks - 11/30/21 One Impairment balance Grassland Conservationist Goal (LTG) Pt will improve Carlin Balance Score from 40/56 to 46/56 points or greater as a measure of reduced falls risk LTG Duration 10 weeks - 11/30/21 Assessment Summary Assessment Endurance is improving as evidenced by less time loss lap to lap in gait training today. Pt required fewer, shorter breaks today. Physical Therapy Plan Frequency and Duration Frequency of Treatment 2x/Week Duration of Treatment 10 weeks Plan of Care Start Date 09/21/21 Plan of Care End Date 11/30/21 Therapeutic Interventions Therapeutic Interventions Balance Training,Gait Training ,Home Exercise Program, Neuromuscular Re-education, Therapeutic Activities, Therapeutic Exercises Next Visit Focus/Plan Next Note Type Treatment Note Next Visit Plan Assess response to last tx. Recheck standing HEP. POC: Continue aerobic conditioning, assess response to HEP; progress as able including balance work
--- NOTE | 2021-10-18 13:00 | PT.OTN ---
Current Diagnoses Difficulty in walking, not elsewhere classified (10/18/21) Other abnormalities of gait and mobility (10/18/21) Physical Therapy Treatment Note PT-OP-A Visit Information Start: 09/14/21 12:03 Freq: Status: Active Protocol: Document 10/18/21 12:16 SP (Rec: 10/18/21 13:03 SP [id number]) Out-Patient Physical Therapy Visit Information Visit Information Visit Type Treatment Note Visit Note PN 10th visit in 2 appts. Visit Start Time 12:16 Visit Stop Time 13:00 Total Visit Minutes 44 Visit Number 8 Number of REGULATED PROGRAM MANAGER Visits 1 Evaluation Information Evaluation Date 09/21/21 PT-OP-B Current Condition Start: 09/14/21 12:03 Freq: Status: Active Protocol: Document 09/21/21 14:30 AW (Rec: 09/14/21 12:45 AW [id number]) Current Condition History of Current Condition Onset Date years Current Complaints poor endurance, decreased balance, falls History of Current Condition Yanni is most concerned with her endurance and reports she has not fallen in over one year. She is always tired and has a lousy appetite. She is followed by a hand picker, is using a nutrition supplement, and is trying to eat more eggs for protein. She is using a 4WW for nearly all community mobility. At home, she uses no assistive device unless she is trying to carry items in which case she will use FWW with a tray attachment. She reports achey pain in her anterior thighs when she walks ; she has chronic back and neck pain. She underwent left mastectomy within the past year. She was not a candidate for adjuvant radiation due to pre-existing CREST syndrome and sceleroderma. She has a fib and is now on warfarin. She has renal failure and currently does peritoneal dialysis at home. Her daughter and daughter's have lived with her for >1 year. Pt currently manages all her ADL 's. Her daughter and son in law assist with IADL's. Daughter provides set up assist for peritoneal dialysis . Pt lives in single-level home with 4 PRASANTH and B rails. She has a hurrycane, 4WW, FWW, shower chair, lift recliner, flat bed with bed rails. Suction grab bars in shower. Prior Treatments and Tests Prior PT at this clinic for similar concerns Treatment Goals Patient/Caregiver Goals Stand long enough to bake. Energy enough to do laundry without assist. Increase endurance, strength, and balance Personal Factors Other Personal Factors That May Effect CREST syndrome, Raynaud's, Therapy/Recovery GERD, scleroderma, renal failure, osteoporosis, neck and back pain. PT-OP-C Subjective Start: 09/14/21 12:03 Freq: Status: Active Protocol: Document 10/18/21 12:16 SP (Rec: 10/18/21 13:03 SP [id number]) OP-PT Subjective Patient Comments Patient Comments Pt stated didn't get a call about setting up more appts. PT-OP-D Balance Start: 09/14/21 12:03 Freq: Status: Active Protocol: Document 09/21/21 14:30 AW (Rec: 09/21/21 16:06 AW [id number]) Balance Tests Romberg Romberg WNL EO; increased sway EC Tandem Tandem Standing unable PT-OP-E Functional Tests Start: 09/14/21 12:03 Freq: Status: Active Protocol: Document 09/21/21 14:30 AW (Rec: 09/21/21 16:06 AW [id number]) Functional Tests 2 Minute Walk Test Distance 380' in 3 minutes Device Used 4WW Comments 0.64 m/s average gait speed. 2 laps completed; 2nd lap took 3 more seconds PT-OP-G Mobility & Gait Start: 09/14/21 12:03 Freq: Status: Active Protocol: Document 09/21/21 14:30 AW (Rec: 09/21/21 16:06 AW [id number]) OP Mobility Evaluation Transfers Sit to Stand definite use of hands Bed to Chair Transfers SBA with increased time OP Gait Assessment Gait Gait Assistance Required: Standby Assistance Distance (Feet) 400 Assistive Devices Assistive Device Gait Belt,4 Wheeled Walker Gait Deviations General Gait Pattern Antalgic,Wide Based Gait Comments Gait Comments Pt uses 4WW to walk longer distances. She walks with bilateral hip external rotation, WBOS, and increased trunk flexion PT-OP-M Strength Start: 09/14/21 12:03 Freq: Status: Active Protocol: Document 09/21/21 14:30 AW (Rec: 09/21/21 16:06 AW [id number]) Hip Strength Hip Manual Muscle Testing Left Flexion (L2) 4 Good Extension (S1) 4- Good- Abduction 3+ Fair+ Right Flexion (L2) 4- Good- Extension (S1) 4- Good- Abduction 3 Fair Knee Strength Knee Manual Muscle Testing bilat Flexion (S2) 4- Good- Extension (L3) 4 Good Ankle/Foot Strength Ankle and Foot Manual Muscle Testing bilat Dorsiflexion (L4) 4 Good Plantarflexion (S1) 3+ Fair+ PT-OP-Q Treatments Start: 09/14/21 12:03 Freq: Status: Active Protocol: Document 10/18/21 12:16 SP (Rec: 10/18/21 13:03 SP [id number]) Cardio Equipment Recumbent Stepper (Sci-Fit) Duration (Minutes) 7 Resistance 2 Seat Position 8 Therapeutic Exercises Standing Exercises step up Standing Exercise Name fwd (RHR only, lateral BUE supprort) Side bilateral Equipment Used 6 steps, 50 % WB support on R HR only Reps/Minutes x8 LLE, 5 reps RLE lead Comments cued full knee extension for 2nd LE ascend. hip extension Standing Exercise Name hip extension- review Side bilateral Resistance AROM Reps/Minutes x10 Comments good self corrections upright trunk, no lean, slow con/ eccentric side stepping Standing Exercise Name HEP Side bilateral Equipment Used no UE support Reps/Minutes 2x 20 ft lap, 1 seated rest between sets Comments cued toes fwd, quad facilitation on R for full ext Other Exercises sit to stand Other Exercise Name sit to stand Equipment Used 18 mesh chair no UE support ( arms front) Reps/Minutes 5 reps in 22 sec Comments forward wt shift/ hip hinge, little plot at bottom descent, cued slow Gait Training Gait Activity 6mwt Device Used 4WW Level of Assistance S Surface firm Distance/Duration 655 ft Treatment Focus increase endurance, energy conservation, ronald LE heel strik, foot clear Comments Pt gait trains feet in 6 minutes and requires 2 15 sec stand rest break. She reports 3/4 Dyspnea scale. PT-OP-T Assessment and Plan Start: 09/14/21 12:03 Freq: Status: Active Protocol: Document 10/18/21 12:16 SP (Rec: 10/18/21 13:03 SP [id number]) Physical Therapy Assessment Goals Three Impairment gait Short Term Goal (STG) Yanni will complete 6 minute walk test using 4WW with no rest breaks 10/18/21: PRogresssing: Pt completed 655ft in 6 min w/ 2 stand rest breaks approx 15 sec using 4WW. STG Duration 5 weeks - 10/26/21- progressing Nursing Home Goal (LTG) Yanni will improve 6MWT by 10% compared with performance on STG assessment LTG Duration 10 weeks - 11/30/21 Two Impairment strength Short Term Goal (STG) Yanni will improve her hip strength to 4/5 bilaterally to improve gait stability STG Duration 5 weeks - 10/26/21 Nurse Advocate Goal (LTG) Yanni will improve her lower extremity strength to be able to ascend and descend a set of stairs without hip drop. LTG Duration 10 weeks - 11/30/21 One Impairment balance Nurse Advocate Goal (LTG) Pt will improve Carlin Balance Score from 40/56 to 46/56 points or greater as a measure of reduced falls risk LTG Duration 10 weeks - 11/30/21 Assessment Summary Assessment Pt required 2 stand rests during 6MWT increase distance almost 200 ft. Seated rest between standing HEP for tiring and elevated SOB recovery. Physical Therapy Plan Frequency and Duration Frequency of Treatment 2x/Week Duration of Treatment 10 weeks Plan of Care Start Date 09/21/21 Plan of Care End Date 11/30/21 Therapeutic Interventions Therapeutic Interventions Balance Training,Gait Training ,Home Exercise Program, Neuromuscular Re-education, Therapeutic Activities, Therapeutic Exercises Next Visit Focus/Plan Next Note Type Treatment Note Next Visit Plan PN in 2 visits, 10th vist. POC: Continue aerobic conditioning, assess response to HEP; progress as able including balance work
--- NOTE | 2021-10-20 17:15 | PT.OTN ---
Current Diagnoses Difficulty in walking, not elsewhere classified (10/20/21) Other abnormalities of gait and mobility (10/20/21) Physical Therapy Treatment Note PT-OP-A Visit Information Start: 09/14/21 12:03 Freq: Status: Active Protocol: Document 10/20/21 12:57 AW (Rec: 10/20/21 14:30 AW [id number]) Out-Patient Physical Therapy Visit Information Visit Information Visit Type Progress Note Visit Start Time 13:47 Visit Stop Time 14:29 Total Visit Minutes 42 Visit Number 9 Number of DROP HAMMER PILE DRIVER OPERATOR Visits 0 Evaluation Information Evaluation Date 09/21/21 PT-OP-B Current Condition Start: 09/14/21 12:03 Freq: Status: Active Protocol: Document 09/21/21 14:30 AW (Rec: 09/14/21 12:45 AW [id number]) Current Condition History of Current Condition Onset Date years Current Complaints poor endurance, decreased balance, falls History of Current Condition Yanni is most concerned with her endurance and reports she has not fallen in over one year. She is always tired and has a lousy appetite. She is followed by a registered nurse ambulatory, is using a nutrition supplement, and is trying to eat more eggs for protein. She is using a 4WW for nearly all community mobility. At home, she uses no assistive device unless she is trying to carry items in which case she will use FWW with a tray attachment. She reports achey pain in her anterior thighs when she walks ; she has chronic back and neck pain. She underwent left mastectomy within the past year. She was not a candidate for adjuvant radiation due to pre-existing CREST syndrome and sceleroderma. She has a fib and is now on warfarin. She has renal failure and currently does peritoneal dialysis at home. Her daughter and daughter's have lived with her for >1 year. Pt currently manages all her ADL 's. Her daughter and son in law assist with IADL's. Daughter provides set up assist for peritoneal dialysis . Pt lives in single-level home with 4 PRASANTH and B rails. She has a hurrycane, 4WW, FWW, shower chair, lift recliner, flat bed with bed rails. Suction grab bars in shower. Prior Treatments and Tests Prior PT at this clinic for similar concerns Treatment Goals Patient/Caregiver Goals Stand long enough to bake. Energy enough to do laundry without assist. Increase endurance, strength, and balance Personal Factors Other Personal Factors That May Effect CREST syndrome, Raynaud's, Therapy/Recovery GERD, scleroderma, renal failure, osteoporosis, neck and back pain. PT-OP-C Subjective Start: 09/14/21 12:03 Freq: Status: Active Protocol: Document 10/20/21 12:57 AW (Rec: 10/20/21 14:30 AW [id number]) OP-PT Subjective Patient Comments Patient Comments Medium energy today. PT-OP-D Balance Start: 09/14/21 12:03 Freq: Status: Active Protocol: Document 09/21/21 14:30 AW (Rec: 09/21/21 16:06 AW [id number]) Balance Tests Romberg Romberg WNL EO; increased sway EC Tandem Tandem Standing unable PT-OP-E Functional Tests Start: 09/14/21 12:03 Freq: Status: Active Protocol: Document 09/21/21 14:30 AW (Rec: 09/21/21 16:06 AW [id number]) Functional Tests 2 Minute Walk Test Distance 380' in 3 minutes Device Used 4WW Comments 0.64 m/s average gait speed. 2 laps completed; 2nd lap took 3 more seconds PT-OP-G Mobility & Gait Start: 09/14/21 12:03 Freq: Status: Active Protocol: Document 09/21/21 14:30 AW (Rec: 09/21/21 16:06 AW [id number]) OP Mobility Evaluation Transfers Sit to Stand definite use of hands Bed to Chair Transfers SBA with increased time OP Gait Assessment Gait Gait Assistance Required: Standby Assistance Distance (Feet) 400 Assistive Devices Assistive Device Gait Belt,4 Wheeled Walker Gait Deviations General Gait Pattern Antalgic,Wide Based Gait Comments Gait Comments Pt uses 4WW to walk longer distances. She walks with bilateral hip external rotation, WBOS, and increased trunk flexion PT-OP-M Strength Start: 09/14/21 12:03 Freq: Status: Active Protocol: Document 09/21/21 14:30 AW (Rec: 09/21/21 16:06 AW [id number]) Hip Strength Hip Manual Muscle Testing Left Flexion (L2) 4 Good Extension (S1) 4- Good- Abduction 3+ Fair+ Right Flexion (L2) 4- Good- Extension (S1) 4- Good- Abduction 3 Fair Knee Strength Knee Manual Muscle Testing bilat Flexion (S2) 4- Good- Extension (L3) 4 Good Ankle/Foot Strength Ankle and Foot Manual Muscle Testing bilat Dorsiflexion (L4) 4 Good Plantarflexion (S1) 3+ Fair+ PT-OP-Q Treatments Start: 09/14/21 12:03 Freq: Status: Active Protocol: Document 10/20/21 12:57 AW (Rec: 10/20/21 14:30 AW [id number]) Cardio Equipment Recumbent Stepper (Sci-Fit) Duration (Minutes) 7 Resistance 2 Seat Position 8 Other UEs/ LEs 35-40 rpm Therapeutic Exercises Standing Exercises step up Standing Exercise Name fwd with unilateral HR support Side bilateral Equipment Used 6 steps, 50 % WB support on uni HR only Reps/Minutes x10 BLE - needs assist and cues for RLE clearance when leading with LLE Comments cued full knee extension for 2nd LE ascend. Other Exercises sit to stand Other Exercise Name sit to stand Equipment Used 18 mesh chair no UE support ( arms front) Comments end of session today and pt requires min A to recover from post LOB x 1 Gait Training Gait Activity Gait with RW Distance/Duration 4 min 45 sec/500 feet Comments Average gait speed 0.53 m/s with variable split times 65 seconds to 80 seconds. Neuro Re-Education Treatment Balance Activities backward walking Details backward walking Surface firm Equipment // contact with LUE Reps/Duration 10' lap x 2 wobble board Details wobble board Reps/Duration 5 min Comments AP and lateral with weight shifting. Most reps with fingertip support on rail. Last rep in AP orientation with no UE support requiring CGA>min A x 3 for balance. PT-OP-T Assessment and Plan Start: 09/14/21 12:03 Freq: Status: Active Protocol: Document 10/20/21 12:57 AW (Rec: 10/20/21 14:30 AW [id number]) Physical Therapy Assessment Goals Three Impairment gait Short Term Goal (STG) Yanni will complete 6 minute walk test using 4WW with no rest breaks 10/18/21: PRogresssing: Pt completed 655ft in 6 min w/ 2 stand rest breaks approx 15 sec using 4WW. STG Duration 5 weeks - 10/26/21- progressing Wool Cleaner Goal (LTG) Yanni will improve 6MWT by 10% compared with performance on STG assessment LTG Duration 10 weeks - 11/30/21 Two Impairment strength Short Term Goal (STG) Yanni will improve her hip strength to 4/5 bilaterally to improve gait stability 10/20/21 - Goal progress: flexion 4-/5, abduction 4/5, aduction 4/5 STG Duration 5 weeks - 10/26/21 Wool Cleaner Goal (LTG) Yanni will improve her lower extremity strength to be able to ascend and descend a set of stairs without hip drop. LTG Duration 10 weeks - 11/30/21 One Impairment balance Shelter Goal (LTG) Pt will improve Carlin Balance Score from 40/56 to 46/56 points or greater as a measure of reduced falls risk LTG Duration 10 weeks - 11/30/21 Progress Towards Goals Progress Towards Goals Progressing Toward Goals,Slow Progress due to Activity Tolerance,Slow Progress due to Medical Issues Progress Comments Yanni is improving in endurance as evidenced by recent improvements in 6MWT times. She is also able to sustain effort in standing exercise longer with fewer rest breaks. Hip strength is improving and approaching goal levels. Yanni would benefit from continued therapy to capitalize on gains and to improve balance and gait. Assessment Summary Assessment Yanni is able to tolerate more activity over the past few sessions. SOB, bilateral hip pain, and back pain are main barriers to participation but she shows excellent effort with all activities and continues to perform HEP. Physical Therapy Plan Frequency and Duration Frequency of Treatment 2x/Week Duration of Treatment 10 weeks Plan of Care Start Date 09/21/21 Plan of Care End Date 11/30/21 Therapeutic Interventions Therapeutic Interventions Balance Training,Gait Training ,Home Exercise Program, Neuromuscular Re-education, Therapeutic Activities, Therapeutic Exercises Next Visit Focus/Plan Next Note Type Treatment Note Next Visit Plan POC: Continue aerobic conditioning, assess response to HEP; progress as able including balance work
--- NOTE | 2021-10-25 10:30 | PT.OTN ---
Current Diagnoses Difficulty in walking, not elsewhere classified (10/25/21) Other abnormalities of gait and mobility (10/25/21) Physical Therapy Treatment Note PT-OP-A Visit Information Start: 09/14/21 12:03 Freq: Status: Active Protocol: Document 10/25/21 09:55 SP (Rec: 10/25/21 10:31 SP [id number]) Out-Patient Physical Therapy Visit Information Visit Information Visit Type Treatment Note Visit Start Time 09:52 Visit Stop Time 10:30 Total Visit Minutes 38 Visit Number 10 Number of GOLD LETTERER Visits 1 Evaluation Information Evaluation Date 09/21/21 PT-OP-B Current Condition Start: 09/14/21 12:03 Freq: Status: Active Protocol: Document 09/21/21 14:30 AW (Rec: 09/14/21 12:45 AW [id number]) Current Condition History of Current Condition Onset Date years Current Complaints poor endurance, decreased balance, falls History of Current Condition Yanni is most concerned with her endurance and reports she has not fallen in over one year. She is always tired and has a lousy appetite. She is followed by a calenderer, is using a nutrition supplement, and is trying to eat more eggs for protein. She is using a 4WW for nearly all community mobility. At home, she uses no assistive device unless she is trying to carry items in which case she will use FWW with a tray attachment. She reports achey pain in her anterior thighs when she walks ; she has chronic back and neck pain. She underwent left mastectomy within the past year. She was not a candidate for adjuvant radiation due to pre-existing CREST syndrome and sceleroderma. She has a fib and is now on warfarin. She has renal failure and currently does peritoneal dialysis at home. Her daughter and daughter's have lived with her for >1 year. Pt currently manages all her ADL 's. Her daughter and son in law assist with IADL's. Daughter provides set up assist for peritoneal dialysis . Pt lives in single-level home with 4 PRASANTH and B rails. She has a hurrycane, 4WW, FWW, shower chair, lift recliner, flat bed with bed rails. Suction grab bars in shower. Prior Treatments and Tests Prior PT at this clinic for similar concerns Treatment Goals Patient/Caregiver Goals Stand long enough to bake. Energy enough to do laundry without assist. Increase endurance, strength, and balance Personal Factors Other Personal Factors That May Effect CREST syndrome, Raynaud's, Therapy/Recovery GERD, scleroderma, renal failure, osteoporosis, neck and back pain. PT-OP-C Subjective Start: 09/14/21 12:03 Freq: Status: Active Protocol: Document 10/25/21 09:55 SP (Rec: 10/25/21 10:31 SP [id number]) OP-PT Subjective Patient Comments Patient Comments Doing ok today. PT-OP-D Balance Start: 09/14/21 12:03 Freq: Status: Active Protocol: Document 09/21/21 14:30 AW (Rec: 09/21/21 16:06 AW [id number]) Balance Tests Romberg Romberg WNL EO; increased sway EC Tandem Tandem Standing unable PT-OP-E Functional Tests Start: 09/14/21 12:03 Freq: Status: Active Protocol: Document 09/21/21 14:30 AW (Rec: 09/21/21 16:06 AW [id number]) Functional Tests 2 Minute Walk Test Distance 380' in 3 minutes Device Used 4WW Comments 0.64 m/s average gait speed. 2 laps completed; 2nd lap took 3 more seconds PT-OP-G Mobility & Gait Start: 09/14/21 12:03 Freq: Status: Active Protocol: Document 09/21/21 14:30 AW (Rec: 09/21/21 16:06 AW [id number]) OP Mobility Evaluation Transfers Sit to Stand definite use of hands Bed to Chair Transfers SBA with increased time OP Gait Assessment Gait Gait Assistance Required: Standby Assistance Distance (Feet) 400 Assistive Devices Assistive Device Gait Belt,4 Wheeled Walker Gait Deviations General Gait Pattern Antalgic,Wide Based Gait Comments Gait Comments Pt uses 4WW to walk longer distances. She walks with bilateral hip external rotation, WBOS, and increased trunk flexion PT-OP-M Strength Start: 09/14/21 12:03 Freq: Status: Active Protocol: Document 09/21/21 14:30 AW (Rec: 09/21/21 16:06 AW [id number]) Hip Strength Hip Manual Muscle Testing Left Flexion (L2) 4 Good Extension (S1) 4- Good- Abduction 3+ Fair+ Right Flexion (L2) 4- Good- Extension (S1) 4- Good- Abduction 3 Fair Knee Strength Knee Manual Muscle Testing bilat Flexion (S2) 4- Good- Extension (L3) 4 Good Ankle/Foot Strength Ankle and Foot Manual Muscle Testing bilat Dorsiflexion (L4) 4 Good Plantarflexion (S1) 3+ Fair+ PT-OP-Q Treatments Start: 09/14/21 12:03 Freq: Status: Active Protocol: Document 10/25/21 09:55 SP (Rec: 10/25/21 10:31 SP [id number]) Cardio Equipment Recumbent Stepper (Sci-Fit) Duration (Minutes) 7 Resistance 2 Seat Position 8 Other UEs/ LEs 35-40 rpm. 0.55 miles Gym Equipment Sport Cord yellow Exercise Details f/b/side stepping R and L Cord/Resistance yellow Reps/Duration 3 reps each direction Comments CGA- 5%A, cued slow eccentric stepping and wider SAIDA. Therapeutic Exercises Standing Exercises heel lift Standing Exercise Name heel raise- HEP review Side bilateral Resistance AROM Equipment Used contact back of chair Reps/Minutes x15 Comments good form, Mod UE WB on back of chair Other Exercises sit to stand Other Exercise Name sit to stand Equipment Used 18 mesh chair no UE support ( arms front) Reps/Minutes 5 reps in 28 sec Comments end of session today, SBA no LOB Neuro Re-Education Treatment Balance Activities backward walking Details forward/ backward walking Surface firm Equipment // contact with LUE Reps/Duration 10' lap x 3 Comments cued slow back stepping, increase SAIDA, core PT-OP-T Assessment and Plan Start: 09/14/21 12:03 Freq: Status: Active Protocol: Document 10/25/21 09:55 SP (Rec: 10/25/21 10:31 SP [id number]) Physical Therapy Assessment Goals Three Impairment gait Short Term Goal (STG) Yanni will complete 6 minute walk test using 4WW with no rest breaks 10/18/21: PRogresssing: Pt completed 655ft in 6 min w/ 2 stand rest breaks approx 15 sec using 4WW. STG Duration 5 weeks - 10/26/21- progressing Alf Goal (LTG) Yanni will improve 6MWT by 10% compared with performance on STG assessment LTG Duration 10 weeks - 11/30/21 Two Impairment strength Short Term Goal (STG) Yanni will improve her hip strength to 4/5 bilaterally to improve gait stability 10/20/21 - Goal progress: flexion 4-/5, abduction 4/5, aduction 4/5 STG Duration 5 weeks - 10/26/21 Alf Goal (LTG) Yanni will improve her lower extremity strength to be able to ascend and descend a set of stairs without hip drop. LTG Duration 10 weeks - 11/30/21 One Impairment balance Manager Cargo Goal (LTG) Pt will improve Carlin Balance Score from 40/56 to 46/56 points or greater as a measure of reduced falls risk LTG Duration 10 weeks - 11/30/21 Assessment Summary Assessment Pt reports no pain just tiring , able perform resisted stepping today, noted SOB, brief stand pauses before required seated rests recovery . Physical Therapy Plan Frequency and Duration Frequency of Treatment 2x/Week Duration of Treatment 10 weeks Plan of Care Start Date 09/21/21 Plan of Care End Date 11/30/21 Therapeutic Interventions Therapeutic Interventions Balance Training,Gait Training ,Home Exercise Program, Neuromuscular Re-education, Therapeutic Activities, Therapeutic Exercises Next Visit Focus/Plan Next Note Type Treatment Note Next Visit Plan POC: Continue aerobic conditioning, assess response to HEP; progress as able including balance work
--- NOTE | 2021-10-27 15:20 | PT.OTN ---
Current Diagnoses Difficulty in walking, not elsewhere classified (10/27/21) Other abnormalities of gait and mobility (10/27/21) Physical Therapy Treatment Note PT-OP-A Visit Information Start: 09/14/21 12:03 Freq: Status: Active Protocol: Document 10/27/21 14:40 SP (Rec: 10/27/21 15:36 SP [id number]) Out-Patient Physical Therapy Visit Information Visit Information Visit Type Treatment Note Visit Start Time 14:40 Visit Stop Time 15:20 Total Visit Minutes 40 Visit Number 11 Number of GOVERNMENT INSTRUCTOR Visits 2 Evaluation Information Evaluation Date 09/21/21 PT-OP-B Current Condition Start: 09/14/21 12:03 Freq: Status: Active Protocol: Document 09/21/21 14:30 AW (Rec: 09/14/21 12:45 AW [id number]) Current Condition History of Current Condition Onset Date years Current Complaints poor endurance, decreased balance, falls History of Current Condition Yanni is most concerned with her endurance and reports she has not fallen in over one year. She is always tired and has a lousy appetite. She is followed by a registered associate, is using a nutrition supplement, and is trying to eat more eggs for protein. She is using a 4WW for nearly all community mobility. At home, she uses no assistive device unless she is trying to carry items in which case she will use FWW with a tray attachment. She reports achey pain in her anterior thighs when she walks ; she has chronic back and neck pain. She underwent left mastectomy within the past year. She was not a candidate for adjuvant radiation due to pre-existing CREST syndrome and sceleroderma. She has a fib and is now on warfarin. She has renal failure and currently does peritoneal dialysis at home. Her daughter and daughter's have lived with her for >1 year. Pt currently manages all her ADL 's. Her daughter and son in law assist with IADL's. Daughter provides set up assist for peritoneal dialysis . Pt lives in single-level home with 4 PRASANTH and B rails. She has a hurrycane, 4WW, FWW, shower chair, lift recliner, flat bed with bed rails. Suction grab bars in shower. Prior Treatments and Tests Prior PT at this clinic for similar concerns Treatment Goals Patient/Caregiver Goals Stand long enough to bake. Energy enough to do laundry without assist. Increase endurance, strength, and balance Personal Factors Other Personal Factors That May Effect CREST syndrome, Raynaud's, Therapy/Recovery GERD, scleroderma, renal failure, osteoporosis, neck and back pain. PT-OP-C Subjective Start: 09/14/21 12:03 Freq: Status: Active Protocol: Document 10/27/21 14:40 SP (Rec: 10/27/21 15:36 SP [id number]) OP-PT Subjective Patient Comments Patient Comments Pt stated has nights hard time getting to sleep, maybe thinking about things or need go to bathroom and don't want to get up and nervous trip on abdomen tubing PT-OP-D Balance Start: 09/14/21 12:03 Freq: Status: Active Protocol: Document 09/21/21 14:30 AW (Rec: 09/21/21 16:06 AW [id number]) Balance Tests Romberg Romberg WNL EO; increased sway EC Tandem Tandem Standing unable PT-OP-E Functional Tests Start: 09/14/21 12:03 Freq: Status: Active Protocol: Document 09/21/21 14:30 AW (Rec: 09/21/21 16:06 AW [id number]) Functional Tests 2 Minute Walk Test Distance 380' in 3 minutes Device Used 4WW Comments 0.64 m/s average gait speed. 2 laps completed; 2nd lap took 3 more seconds PT-OP-G Mobility & Gait Start: 09/14/21 12:03 Freq: Status: Active Protocol: Document 09/21/21 14:30 AW (Rec: 09/21/21 16:06 AW [id number]) OP Mobility Evaluation Transfers Sit to Stand definite use of hands Bed to Chair Transfers SBA with increased time OP Gait Assessment Gait Gait Assistance Required: Standby Assistance Distance (Feet) 400 Assistive Devices Assistive Device Gait Belt,4 Wheeled Walker Gait Deviations General Gait Pattern Antalgic,Wide Based Gait Comments Gait Comments Pt uses 4WW to walk longer distances. She walks with bilateral hip external rotation, WBOS, and increased trunk flexion PT-OP-M Strength Start: 09/14/21 12:03 Freq: Status: Active Protocol: Document 09/21/21 14:30 AW (Rec: 09/21/21 16:06 AW [id number]) Hip Strength Hip Manual Muscle Testing Left Flexion (L2) 4 Good Extension (S1) 4- Good- Abduction 3+ Fair+ Right Flexion (L2) 4- Good- Extension (S1) 4- Good- Abduction 3 Fair Knee Strength Knee Manual Muscle Testing bilat Flexion (S2) 4- Good- Extension (L3) 4 Good Ankle/Foot Strength Ankle and Foot Manual Muscle Testing bilat Dorsiflexion (L4) 4 Good Plantarflexion (S1) 3+ Fair+ PT-OP-Q Treatments Start: 09/14/21 12:03 Freq: Status: Active Protocol: Document 10/27/21 14:40 SP (Rec: 10/27/21 15:36 SP [id number]) Cardio Equipment Recumbent Stepper (Sci-Fit) Duration (Minutes) 7 Resistance 2 Seat Position 8 Other UEs/ LEs 35-40 rpm. 0.55 miles Gait Training Gait Activity Gait with RW Distance/Duration 2 min 54 sec/ 343 feet Comments Average gait speed 1.94 ft/sec , w/ 1 stand rest. (post 2 min rest after scifit) , cued tall posture with core fac (book on head), eccentric heel strike Neuro Re-Education Treatment Balance Activities backward walking Details forward/ backward walking Surface firm Equipment // contact with LUE Reps/Duration 30 ft lap x2 reps before seated rest Comments cued slow back stepping, increase SAIDA, core walk as though book on head, decreased lateral wt shifting back stepping cathie stepping Details f/b/side Surface firm Equipment 4 hurdles, CGA, min contact Reps/Duration 2 x laps each direction before sit required, resp elevated Comments cued slow eccentric heel strike w/ BLE. corner balance Details NBOS, stagger Surface firm Equipment corner at back, locked 4WW at front Comments EO, head turns NBOS: EO head turns/vertical hold 30s no LOB stagger EO: L foot forward head turn 30s hold head turn L , R foot forward 30s hold head turn R, 20s vertical before contact 4WW. PT-OP-T Assessment and Plan Start: 09/14/21 12:03 Freq: Status: Active Protocol: Document 10/27/21 14:40 SP (Rec: 10/27/21 15:36 SP [id number]) Physical Therapy Assessment Goals Three Impairment gait Short Term Goal (STG) Yanni will complete 6 minute walk test using 4WW with no rest breaks 10/18/21: PRogresssing: Pt completed 655ft in 6 min w/ 2 stand rest breaks approx 15 sec using 4WW. STG Duration 5 weeks - 10/26/21- progressing Prisoner Classification Interviewer Goal (LTG) Yanni will improve 6MWT by 10% compared with performance on STG assessment LTG Duration 10 weeks - 11/30/21 Two Impairment strength Short Term Goal (STG) Yanni will improve her hip strength to 4/5 bilaterally to improve gait stability 10/20/21 - Goal progress: flexion 4-/5, abduction 4/5, aduction 4/5 STG Duration 5 weeks - 10/26/21 Prisoner Classification Interviewer Goal (LTG) Yanni will improve her lower extremity strength to be able to ascend and descend a set of stairs without hip drop. LTG Duration 10 weeks - 11/30/21 One Impairment balance Prisoner Classification Interviewer Goal (LTG) Pt will improve Carlin Balance Score from 40/56 to 46/56 points or greater as a measure of reduced falls risk LTG Duration 10 weeks - 11/30/21 Assessment Summary Assessment Pt reports no pain, required rest breaks between activitiesm good request for hydration. Cued tall posture as though book on head and eccentric heel strike for increase awareness of core and hip facilitation and safety foot clearance, improved self corrections. Physical Therapy Plan Frequency and Duration Frequency of Treatment 2x/Week Duration of Treatment 10 weeks Plan of Care Start Date 09/21/21 Plan of Care End Date 11/30/21 Therapeutic Interventions Therapeutic Interventions Balance Training,Gait Training ,Home Exercise Program, Neuromuscular Re-education, Therapeutic Activities, Therapeutic Exercises Next Visit Focus/Plan Next Note Type Treatment Note Next Visit Plan Next tx: sport cord if available, increase green. POC: Continue aerobic conditioning, assess response to HEP; progress as able including balance work
--- NOTE | 2021-11-01 12:11 | PT.OTN ---
Current Diagnoses Difficulty in walking, not elsewhere classified (11/01/21) Other abnormalities of gait and mobility (11/01/21) Physical Therapy Treatment Note PT-OP-A Visit Information Start: 09/14/21 12:03 Freq: Status: Active Protocol: Document 11/01/21 11:14 AW (Rec: 11/01/21 12:11 AW [id number]) Out-Patient Physical Therapy Visit Information Visit Information Visit Type Treatment Note Visit Start Time 11:15 Visit Stop Time 11:58 Total Visit Minutes 43 Visit Number 12 Number of QUARTER DOPER Visits 0 Evaluation Information Evaluation Date 09/21/21 PT-OP-B Current Condition Start: 09/14/21 12:03 Freq: Status: Active Protocol: Document 09/21/21 14:30 AW (Rec: 09/14/21 12:45 AW [id number]) Current Condition History of Current Condition Onset Date years Current Complaints poor endurance, decreased balance, falls History of Current Condition Yanni is most concerned with her endurance and reports she has not fallen in over one year. She is always tired and has a lousy appetite. She is followed by a registered land surveyor, is using a nutrition supplement, and is trying to eat more eggs for protein. She is using a 4WW for nearly all community mobility. At home, she uses no assistive device unless she is trying to carry items in which case she will use FWW with a tray attachment. She reports achey pain in her anterior thighs when she walks ; she has chronic back and neck pain. She underwent left mastectomy within the past year. She was not a candidate for adjuvant radiation due to pre-existing CREST syndrome and sceleroderma. She has a fib and is now on warfarin. She has renal failure and currently does peritoneal dialysis at home. Her daughter and daughter's have lived with her for >1 year. Pt currently manages all her ADL 's. Her daughter and son in law assist with IADL's. Daughter provides set up assist for peritoneal dialysis . Pt lives in single-level home with 4 PRASANTH and B rails. She has a hurrycane, 4WW, FWW, shower chair, lift recliner, flat bed with bed rails. Suction grab bars in shower. Prior Treatments and Tests Prior PT at this clinic for similar concerns Treatment Goals Patient/Caregiver Goals Stand long enough to bake. Energy enough to do laundry without assist. Increase endurance, strength, and balance Personal Factors Other Personal Factors That May Effect CREST syndrome, Raynaud's, Therapy/Recovery GERD, scleroderma, renal failure, osteoporosis, neck and back pain. PT-OP-C Subjective Start: 09/14/21 12:03 Freq: Status: Active Protocol: Document 11/01/21 11:14 AW (Rec: 11/01/21 12:11 AW [id number]) OP-PT Subjective Patient Comments Patient Comments Sleep is so so, not great. No new complaints. Yanni thinks her balance has improved along with slight improvement in endurance. Patient Reported Progress Improving PT-OP-D Balance Start: 09/14/21 12:03 Freq: Status: Active Protocol: Document 09/21/21 14:30 AW (Rec: 09/21/21 16:06 AW [id number]) Balance Tests Romberg Romberg WNL EO; increased sway EC Tandem Tandem Standing unable PT-OP-E Functional Tests Start: 09/14/21 12:03 Freq: Status: Active Protocol: Document 09/21/21 14:30 AW (Rec: 09/21/21 16:06 AW [id number]) Functional Tests 2 Minute Walk Test Distance 380' in 3 minutes Device Used 4WW Comments 0.64 m/s average gait speed. 2 laps completed; 2nd lap took 3 more seconds PT-OP-G Mobility & Gait Start: 09/14/21 12:03 Freq: Status: Active Protocol: Document 09/21/21 14:30 AW (Rec: 09/21/21 16:06 AW [id number]) OP Mobility Evaluation Transfers Sit to Stand definite use of hands Bed to Chair Transfers SBA with increased time OP Gait Assessment Gait Gait Assistance Required: Standby Assistance Distance (Feet) 400 Assistive Devices Assistive Device Gait Belt,4 Wheeled Walker Gait Deviations General Gait Pattern Antalgic,Wide Based Gait Comments Gait Comments Pt uses 4WW to walk longer distances. She walks with bilateral hip external rotation, WBOS, and increased trunk flexion PT-OP-M Strength Start: 09/14/21 12:03 Freq: Status: Active Protocol: Document 09/21/21 14:30 AW (Rec: 09/21/21 16:06 AW [id number]) Hip Strength Hip Manual Muscle Testing Left Flexion (L2) 4 Good Extension (S1) 4- Good- Abduction 3+ Fair+ Right Flexion (L2) 4- Good- Extension (S1) 4- Good- Abduction 3 Fair Knee Strength Knee Manual Muscle Testing bilat Flexion (S2) 4- Good- Extension (L3) 4 Good Ankle/Foot Strength Ankle and Foot Manual Muscle Testing bilat Dorsiflexion (L4) 4 Good Plantarflexion (S1) 3+ Fair+ PT-OP-Q Treatments Start: 09/14/21 12:03 Freq: Status: Active Protocol: Document 11/01/21 11:14 AW (Rec: 11/01/21 12:11 AW [id number]) Cardio Equipment Recumbent Stepper (Sci-Fit) Duration (Minutes) 7 Resistance 2 Seat Position 8 Other UEs/ LEs 35-40 rpm. 0.55 miles Gym Equipment Sport Cord yellow Comments unavailable this visit; try again next session Therapeutic Exercises Standing Exercises heel lift Standing Exercise Name heel lift + mini squat Equipment Used // Reps/Minutes x15 Comments before balance work Other Exercises sit to stand Other Exercise Name sit to stand Equipment Used 18 mesh chair no UE support ( arms front) Reps/Minutes 5 reps in 21.2 sec; 5 reps in 22 seconds Comments slower last two reps both sets Gait Training Gait Activity Gait with RW Distance/Duration 582 feet/5 min 20 sec Comments Average gait speed 0.55 m/s. No stand rest break. Cued tall posture with core fac (book on head), eccentric heel strike. Caught right toe one time final lap but did not need recovery assist Neuro Re-Education Treatment Balance Activities cathie stepping Details fwd/lateral Surface firm Equipment 4 hurdles, CGA Reps/Duration 2 x laps each direction before sit required, resp elevated Comments cued foot clearance, soft landing. CGA only with no LOB corner balance Details NBOS, stagger Surface firm Equipment in // today Comments EO, head turns NBOS: EO head turns/vertical hold 30s no LOB stagger EO: ~20-30 sec each LE fwd before contacting rail PT-OP-T Assessment and Plan Start: 09/14/21 12:03 Freq: Status: Active Protocol: Document 11/01/21 11:14 AW (Rec: 11/01/21 12:11 AW [id number]) Physical Therapy Assessment Goals Three Impairment gait Short Term Goal (STG) Yanni will complete 6 minute walk test using 4WW with no rest breaks 10/18/21: PRogresssing: Pt completed 655ft in 6 min w/ 2 stand rest breaks approx 15 sec using 4WW. STG Duration 5 weeks - 10/26/21- progressing [facility] Goal (LTG) Yanni will improve 6MWT by 10% compared with performance on STG assessment LTG Duration 10 weeks - 11/30/21 Two Impairment strength Short Term Goal (STG) Yanni will improve her hip strength to 4/5 bilaterally to improve gait stability 10/20/21 - Goal progress: flexion 4-/5, abduction 4/5, aduction 4/5 STG Duration 5 weeks - 10/26/21 [facility] Goal (LTG) Yanni will improve her lower extremity strength to be able to ascend and descend a set of stairs without hip drop. LTG Duration 10 weeks - 11/30/21 One Impairment balance [facility] Goal (LTG) Pt will improve Carlin Balance Score from 40/56 to 46/56 points or greater as a measure of reduced falls risk LTG Duration 10 weeks - 11/30/21 Assessment Summary Assessment CGA only for cathie stepping today. Endurance improving with longer distance and time in gait although slightly slower pace (0.55 m/s compared with previous 0.6 m/s). Discussed slower pace as a possible energy conservation technique to allow pt to walk longer and farther. Physical Therapy Plan Frequency and Duration Frequency of Treatment 2x/Week Duration of Treatment 10 weeks Plan of Care Start Date 09/21/21 Plan of Care End Date 11/30/21 Therapeutic Interventions Therapeutic Interventions Balance Training,Gait Training ,Home Exercise Program, Neuromuscular Re-education, Therapeutic Activities, Therapeutic Exercises Next Visit Focus/Plan Next Note Type Treatment Note Next Visit Plan Next tx: sport cord if available, increase green. POC: Continue aerobic conditioning, assess response to HEP; progress as able including balance work
--- NOTE | 2021-11-03 13:00 | PT.OTN ---
Current Diagnoses Difficulty in walking, not elsewhere classified (11/03/21) Other abnormalities of gait and mobility (11/03/21) Physical Therapy Treatment Note PT-OP-A Visit Information Start: 09/14/21 12:03 Freq: Status: Active Protocol: Document 11/03/21 12:18 SP (Rec: 11/03/21 13:09 SP [id number]) Out-Patient Physical Therapy Visit Information Visit Information Visit Type Treatment Note Visit Start Time 12:18 Visit Stop Time 13:00 Total Visit Minutes 42 Visit Number 13 Number of VENEER MANUFACTURER Visits 1 Evaluation Information Evaluation Date 09/21/21 PT-OP-B Current Condition Start: 09/14/21 12:03 Freq: Status: Active Protocol: Document 09/21/21 14:30 AW (Rec: 09/14/21 12:45 AW [id number]) Current Condition History of Current Condition Onset Date years Current Complaints poor endurance, decreased balance, falls History of Current Condition Yanni is most concerned with her endurance and reports she has not fallen in over one year. She is always tired and has a lousy appetite. She is followed by a registered nurse first assistant, is using a nutrition supplement, and is trying to eat more eggs for protein. She is using a 4WW for nearly all community mobility. At home, she uses no assistive device unless she is trying to carry items in which case she will use FWW with a tray attachment. She reports achey pain in her anterior thighs when she walks ; she has chronic back and neck pain. She underwent left mastectomy within the past year. She was not a candidate for adjuvant radiation due to pre-existing CREST syndrome and sceleroderma. She has a fib and is now on warfarin. She has renal failure and currently does peritoneal dialysis at home. Her daughter and daughter's have lived with her for >1 year. Pt currently manages all her ADL 's. Her daughter and son in law assist with IADL's. Daughter provides set up assist for peritoneal dialysis . Pt lives in single-level home with 4 PRASANTH and B rails. She has a hurrycane, 4WW, FWW, shower chair, lift recliner, flat bed with bed rails. Suction grab bars in shower. Prior Treatments and Tests Prior PT at this clinic for similar concerns Treatment Goals Patient/Caregiver Goals Stand long enough to bake. Energy enough to do laundry without assist. Increase endurance, strength, and balance Personal Factors Other Personal Factors That May Effect CREST syndrome, Raynaud's, Therapy/Recovery GERD, scleroderma, renal failure, osteoporosis, neck and back pain. PT-OP-C Subjective Start: 09/14/21 12:03 Freq: Status: Active Protocol: Document 11/03/21 12:18 SP (Rec: 11/03/21 13:09 SP [id number]) OP-PT Subjective Patient Comments Patient Comments Pt reported slept fair, pretty good. 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 PT-OP-D Balance Start: 09/14/21 12:03 Freq: Status: Active Protocol: Document 09/21/21 14:30 AW (Rec: 09/21/21 16:06 AW [id number]) Balance Tests Romberg Romberg WNL EO; increased sway EC Tandem Tandem Standing unable PT-OP-E Functional Tests Start: 09/14/21 12:03 Freq: Status: Active Protocol: Document 09/21/21 14:30 AW (Rec: 09/21/21 16:06 AW [id number]) Functional Tests 2 Minute Walk Test Distance 380' in 3 minutes Device Used 4WW Comments 0.64 m/s average gait speed. 2 laps completed; 2nd lap took 3 more seconds PT-OP-G Mobility & Gait Start: 09/14/21 12:03 Freq: Status: Active Protocol: Document 09/21/21 14:30 AW (Rec: 09/21/21 16:06 AW [id number]) OP Mobility Evaluation Transfers Sit to Stand definite use of hands Bed to Chair Transfers SBA with increased time OP Gait Assessment Gait Gait Assistance Required: Standby Assistance Distance (Feet) 400 Assistive Devices Assistive Device Gait Belt,4 Wheeled Walker Gait Deviations General Gait Pattern Antalgic,Wide Based Gait Comments Gait Comments Pt uses 4WW to walk longer distances. She walks with bilateral hip external rotation, WBOS, and increased trunk flexion PT-OP-M Strength Start: 09/14/21 12:03 Freq: Status: Active Protocol: Document 09/21/21 14:30 AW (Rec: 09/21/21 16:06 AW [id number]) Hip Strength Hip Manual Muscle Testing Left Flexion (L2) 4 Good Extension (S1) 4- Good- Abduction 3+ Fair+ Right Flexion (L2) 4- Good- Extension (S1) 4- Good- Abduction 3 Fair Knee Strength Knee Manual Muscle Testing bilat Flexion (S2) 4- Good- Extension (L3) 4 Good Ankle/Foot Strength Ankle and Foot Manual Muscle Testing bilat Dorsiflexion (L4) 4 Good Plantarflexion (S1) 3+ Fair+ PT-OP-Q Treatments Start: 09/14/21 12:03 Freq: Status: Active Protocol: Document 11/03/21 12:18 SP (Rec: 11/03/21 13:09 SP [id number]) Cardio Equipment Recumbent Stepper (Sci-Fit) Duration (Minutes) 7 Resistance 2 Seat Position 8 Other UEs/ LEs 35-44 rpm. 0.68 miles Gym Equipment Sport Cord yellow Exercise Details bwd 5 reps,L side step x4 reps , Fwd x4 reps, R side step x2 laps Cord/Resistance green (increase from last tried yellow) Comments cued tall posture, core/ hip fac with eccentric step control challenging, CG- 5%A. Therapeutic Exercises Other Exercises sit to stand Other Exercise Name sit to stand Equipment Used 18 mesh chair no UE support ( arms front) Reps/Minutes x2 reps from 12 box step BUE support, x3 reps 16 box step 1 UE support Comments slower last two reps both sets Gait Training Gait Activity Gait with RW Distance/Duration 392ft in 3 min 58 sec= 1.64 ft /sec Comments average speed 1.65 ft/sec. Performed post scifit and sport cord with only 2 min rest/ drink. + SOB last 30 sec required to sit on 4WW. PT-OP-T Assessment and Plan Start: 09/14/21 12:03 Freq: Status: Active Protocol: Document 11/03/21 12:18 SP (Rec: 11/03/21 13:09 SP [id number]) Physical Therapy Assessment Goals Three Impairment gait Short Term Goal (STG) Yanni will complete 6 minute walk test using 4WW with no rest breaks 10/18/21: PRogresssing: Pt completed 655ft in 6 min w/ 2 stand rest breaks approx 15 sec using 4WW. 11/03/21: STG Duration 5 weeks - 10/26/21- progressing [facility] Goal (LTG) Yanni will improve 6MWT by 10% compared with performance on STG assessment LTG Duration 10 weeks - 11/30/21 Two Impairment strength Short Term Goal (STG) Yanni will improve her hip strength to 4/5 bilaterally to improve gait stability 10/20/21 - Goal progress: flexion 4-/5, abduction 4/5, aduction 4/5 STG Duration 5 weeks - 10/26/21 Iron Cutter Goal (LTG) Yanni will improve her lower extremity strength to be able to ascend and descend a set of stairs without hip drop. LTG Duration 10 weeks - 11/30/21 One Impairment balance Jail Goal (LTG) Pt will improve Carlin Balance Score from 40/56 to 46/56 points or greater as a measure of reduced falls risk LTG Duration 10 weeks - 11/30/21 Assessment Summary Assessment Pt worked hard through tx, able to increase sport cord resistance gait up to 4 reps each direction cG- 5%A on last rep. Pt decreased distance gait but performed after all other activities with good effort, foot clearance and ease of stride self corrections. Physical Therapy Plan Frequency and Duration Frequency of Treatment 2x/Week Duration of Treatment 10 weeks Plan of Care Start Date 09/21/21 Plan of Care End Date 11/30/21 Therapeutic Interventions Therapeutic Interventions Balance Training,Gait Training ,Home Exercise Program, Neuromuscular Re-education, Therapeutic Activities, Therapeutic Exercises Next Visit Focus/Plan Next Note Type Treatment Note Next Visit Plan Next tx: sport cord green continue. STS from 16' surface for assist gardening. POC: Continue aerobic conditioning, assess response to HEP; progress as able including balance work
--- NOTE | 2021-11-08 11:36 | PT-OP ANOTE ---
Pt called same day to cancel due to digestive distress.
--- NOTE | 2021-11-10 14:30 | PT.OTN ---
Current Diagnoses Difficulty in walking, not elsewhere classified (11/10/21) Other abnormalities of gait and mobility (11/10/21) Physical Therapy Treatment Note PT-OP-A Visit Information Start: 09/14/21 12:03 Freq: Status: Active Protocol: Document 11/10/21 13:49 SP (Rec: 11/10/21 14:32 SP [id number]) Out-Patient Physical Therapy Visit Information Visit Information Visit Type Treatment Note Visit Note LUE Supine: BP 137/69 HR 80, 94% on RA Seated: 129/66, HR 77 stand: 132/78, HR 76 Visit Start Time 13:49 Visit Stop Time 14:30 Total Visit Minutes 41 Visit Number 14 Number of COMMUNITY HEALTH AGENT Visits 2 Evaluation Information Evaluation Date 09/21/21 PT-OP-B Current Condition Start: 09/14/21 12:03 Freq: Status: Active Protocol: Document 09/21/21 14:30 AW (Rec: 09/14/21 12:45 AW [id number]) Current Condition History of Current Condition Onset Date years Current Complaints poor endurance, decreased balance, falls History of Current Condition Yanni is most concerned with her endurance and reports she has not fallen in over one year. She is always tired and has a lousy appetite. She is followed by a registered nursing professor, is using a nutrition supplement, and is trying to eat more eggs for protein. She is using a 4WW for nearly all community mobility. At home, she uses no assistive device unless she is trying to carry items in which case she will use FWW with a tray attachment. She reports achey pain in her anterior thighs when she walks ; she has chronic back and neck pain. She underwent left mastectomy within the past year. She was not a candidate for adjuvant radiation due to pre-existing CREST syndrome and sceleroderma. She has a fib and is now on warfarin. She has renal failure and currently does peritoneal dialysis at home. Her daughter and daughter's have lived with her for >1 year. Pt currently manages all her ADL 's. Her daughter and son in law assist with IADL's. Daughter provides set up assist for peritoneal dialysis . Pt lives in single-level home with 4 PRASANTH and B rails. She has a hurrycane, 4WW, FWW, shower chair, lift recliner, flat bed with bed rails. Suction grab bars in shower. Prior Treatments and Tests Prior PT at this clinic for similar concerns Treatment Goals Patient/Caregiver Goals Stand long enough to bake. Energy enough to do laundry without assist. Increase endurance, strength, and balance Personal Factors Other Personal Factors That May Effect CREST syndrome, Raynaud's, Therapy/Recovery GERD, scleroderma, renal failure, osteoporosis, neck and back pain. PT-OP-C Subjective Start: 09/14/21 12:03 Freq: Status: Active Protocol: Document 11/10/21 13:49 SP (Rec: 11/10/21 14:32 SP [id number]) OP-PT Subjective Patient Comments Patient Comments Pt stated missed last tx, was feeling really and nausious and gagging. Pt stated still feeling very tired and not sure what can do but wanted to attend and do somehting. PT-OP-D Balance Start: 09/14/21 12:03 Freq: Status: Active Protocol: Document 09/21/21 14:30 AW (Rec: 09/21/21 16:06 AW [id number]) Balance Tests Romberg Romberg WNL EO; increased sway EC Tandem Tandem Standing unable PT-OP-E Functional Tests Start: 09/14/21 12:03 Freq: Status: Active Protocol: Document 09/21/21 14:30 AW (Rec: 09/21/21 16:06 AW [id number]) Functional Tests 2 Minute Walk Test Distance 380' in 3 minutes Device Used 4WW Comments 0.64 m/s average gait speed. 2 laps completed; 2nd lap took 3 more seconds PT-OP-G Mobility & Gait Start: 09/14/21 12:03 Freq: Status: Active Protocol: Document 09/21/21 14:30 AW (Rec: 09/21/21 16:06 AW [id number]) OP Mobility Evaluation Transfers Sit to Stand definite use of hands Bed to Chair Transfers SBA with increased time OP Gait Assessment Gait Gait Assistance Required: Standby Assistance Distance (Feet) 400 Assistive Devices Assistive Device Gait Belt,4 Wheeled Walker Gait Deviations General Gait Pattern Antalgic,Wide Based Gait Comments Gait Comments Pt uses 4WW to walk longer distances. She walks with bilateral hip external rotation, WBOS, and increased trunk flexion PT-OP-M Strength Start: 09/14/21 12:03 Freq: Status: Active Protocol: Document 09/21/21 14:30 AW (Rec: 09/21/21 16:06 AW [id number]) Hip Strength Hip Manual Muscle Testing Left Flexion (L2) 4 Good Extension (S1) 4- Good- Abduction 3+ Fair+ Right Flexion (L2) 4- Good- Extension (S1) 4- Good- Abduction 3 Fair Knee Strength Knee Manual Muscle Testing bilat Flexion (S2) 4- Good- Extension (L3) 4 Good Ankle/Foot Strength Ankle and Foot Manual Muscle Testing bilat Dorsiflexion (L4) 4 Good Plantarflexion (S1) 3+ Fair+ PT-OP-Q Treatments Start: 09/14/21 12:03 Freq: Status: Active Protocol: Document 11/10/21 13:49 SP (Rec: 11/10/21 14:32 SP [id number]) Gym Equipment Shuttle Recovery Bilateral Squats Details cued knee alignment with toes and Tb around knees Resistance 37# Shuttle Recovery Platform Stable Reps/Time x20 Unilateral Squats Details cued knee alignment with toes see medial insole Resistance 25 Shuttle Recovery Platform Stable Reps/Time x10 R, x10 L Therapeutic Ball 55cm ball Exercise Details LTR, hip/ knee flexion Ball Size/Color 55cm Body Position Hooklying Reps/Duration x10 each Comments painfree. challenging L LS rotation, cued core fac and Min A for Therapeutic Exercises Supine Exercises bridge Supine Exercise Name bridge- reviewed Resistance AROM Reps/Minutes 2x10 Comments HEP reviewed-cued maintain space between knees supine clam Supine Exercise Name supine clam-HEP reviewed Side bilateral Resistance manual Reps/Minutes 2x10 Comments good slow pacing control. SLR Supine Exercise Name SLR- HEP reviewed Side bilateral Resistance AROM Reps/Minutes x10 (slight lag last 2 reps) Comments cued quad fac/ knee extension then lift each rep Gait Training Gait Activity stair mgt Description alternating BLE Device Used SPC B HR Level of Assistance SBA-CGA Surface 3 stairs x2 sets Treatment Focus foot clearance, stability, safety squencing Comments decreased quad control descending, increase BUE WB on BHR reciprocal stepping. Gait with RW Device Used 4WW Level of Assistance S Surface firm Distance/Duration 170 ft in 1 min 51 sec Treatment Focus endurance Comments average speed 0.81 ft/sec. post supine ex and shuttle recovery. Decreased core and lateral wt shifting required seated rest and elevated breath. PT-OP-T Assessment and Plan Start: 09/14/21 12:03 Freq: Status: Active Protocol: Document 11/10/21 13:49 SP (Rec: 11/10/21 14:32 SP [id number]) Physical Therapy Assessment Goals Three Impairment gait Short Term Goal (STG) Yanni will complete 6 minute walk test using 4WW with no rest breaks 10/18/21: PRogresssing: Pt completed 655ft in 6 min w/ 2 stand rest breaks approx 15 sec using 4WW. 11/03/21: STG Duration 5 weeks - 10/26/21- progressing Fpc Goal (LTG) Yanni will improve 6MWT by 10% compared with performance on STG assessment LTG Duration 10 weeks - 11/30/21 Two Impairment strength Short Term Goal (STG) Yanni will improve her hip strength to 4/5 bilaterally to improve gait stability 10/20/21 - Goal progress: flexion 4-/5, abduction 4/5, aduction 4/5 STG Duration 5 weeks - 10/26/21 Mobile Home Laborer Goal (LTG) Yanni will improve her lower extremity strength to be able to ascend and descend a set of stairs without hip drop. LTG Duration 10 weeks - 11/30/21 One Impairment balance Fpc Goal (LTG) Pt will improve Carlin Balance Score from 40/56 to 46/56 points or greater as a measure of reduced falls risk LTG Duration 10 weeks - 11/30/21 Assessment Summary Assessment Pt decreased BLE strength and endurance this tx. Required multiple rest breaks and on feet mobilty today. Pt stated felt good came to get some activity with increased tiring lately. Vital assessment normal values. Physical Therapy Plan Frequency and Duration Frequency of Treatment 2x/Week Duration of Treatment 10 weeks Plan of Care Start Date 09/21/21 Plan of Care End Date 11/30/21 Therapeutic Interventions Therapeutic Interventions Balance Training,Gait Training ,Home Exercise Program, Neuromuscular Re-education, Therapeutic Activities, Therapeutic Exercises Next Visit Focus/Plan Next Note Type Treatment Note Next Visit Plan Next tx: assess how activity over weekend wtih increase tiredness last tx. If ok continue: sport cord green continue. Endurance activity. STS from 16' surface for assist gardening. POC: Continue aerobic conditioning, assess response to HEP; progress as able including balance work
--- NOTE | 2021-11-15 11:26 | PT-OP ANOTE ---
Pt called front end web designer after arriving to parking lot in GI distress. She was unable to participate with PT and had to go home.
--- NOTE | 2021-11-17 12:03 | PT.OTN ---
Current Diagnoses Difficulty in walking, not elsewhere classified (11/17/21) Other abnormalities of gait and mobility (11/17/21) Physical Therapy Treatment Note PT-OP-A Visit Information Start: 09/14/21 12:03 Freq: Status: Active Protocol: Document 11/17/21 11:18 AW (Rec: 11/17/21 12:02 AW [id number]) Out-Patient Physical Therapy Visit Information Visit Information Visit Type Treatment Note Visit Note BP assessed with automatic cuff between sets of hurdles - BP 93/46 HR 83. After three minutes rest - 78/49 HR 60. PT cut treatment short and alerted family. Visit Start Time 11:18 Visit Stop Time 11:40 Total Visit Minutes 22 Visit Number 15 Number of WORK DISTRIBUTOR Visits 0 Evaluation Information Evaluation Date 09/21/21 PT-OP-B Current Condition Start: 09/14/21 12:03 Freq: Status: Active Protocol: Document 09/21/21 14:30 AW (Rec: 09/14/21 12:45 AW [id number]) Current Condition History of Current Condition Onset Date years Current Complaints poor endurance, decreased balance, falls History of Current Condition Yanni is most concerned with her endurance and reports she has not fallen in over one year. She is always tired and has a lousy appetite. She is followed by a registered radiation therapist, is using a nutrition supplement, and is trying to eat more eggs for protein. She is using a 4WW for nearly all community mobility. At home, she uses no assistive device unless she is trying to carry items in which case she will use FWW with a tray attachment. She reports achey pain in her anterior thighs when she walks ; she has chronic back and neck pain. She underwent left mastectomy within the past year. She was not a candidate for adjuvant radiation due to pre-existing CREST syndrome and sceleroderma. She has a fib and is now on warfarin. She has renal failure and currently does peritoneal dialysis at home. Her daughter and daughter's have lived with her for >1 year. Pt currently manages all her ADL 's. Her daughter and son in law assist with IADL's. Daughter provides set up assist for peritoneal dialysis . Pt lives in single-level home with 4 PRASANTH and B rails. She has a hurrycane, 4WW, FWW, shower chair, lift recliner, flat bed with bed rails. Suction grab bars in shower. Prior Treatments and Tests Prior PT at this clinic for similar concerns Treatment Goals Patient/Caregiver Goals Stand long enough to bake. Energy enough to do laundry without assist. Increase endurance, strength, and balance Personal Factors Other Personal Factors That May Effect CREST syndrome, Raynaud's, Therapy/Recovery GERD, scleroderma, renal failure, osteoporosis, neck and back pain. PT-OP-C Subjective Start: 09/14/21 12:03 Freq: Status: Active Protocol: Document 11/17/21 11:18 AW (Rec: 11/17/21 12:02 AW [id number]) OP-PT Subjective Patient Comments Patient Comments Currently getting peritoneal antibiotics for two more days due to suspected peritonitis. Energy levels are very low. PT-OP-D Balance Start: 09/14/21 12:03 Freq: Status: Active Protocol: Document 09/21/21 14:30 AW (Rec: 09/21/21 16:06 AW [id number]) Balance Tests Romberg Romberg WNL EO; increased sway EC Tandem Tandem Standing unable PT-OP-E Functional Tests Start: 09/14/21 12:03 Freq: Status: Active Protocol: Document 09/21/21 14:30 AW (Rec: 09/21/21 16:06 AW [id number]) Functional Tests 2 Minute Walk Test Distance 380' in 3 minutes Device Used 4WW Comments 0.64 m/s average gait speed. 2 laps completed; 2nd lap took 3 more seconds PT-OP-G Mobility & Gait Start: 09/14/21 12:03 Freq: Status: Active Protocol: Document 09/21/21 14:30 AW (Rec: 09/21/21 16:06 AW [id number]) OP Mobility Evaluation Transfers Sit to Stand definite use of hands Bed to Chair Transfers SBA with increased time OP Gait Assessment Gait Gait Assistance Required: Standby Assistance Distance (Feet) 400 Assistive Devices Assistive Device Gait Belt,4 Wheeled Walker Gait Deviations General Gait Pattern Antalgic,Wide Based Gait Comments Gait Comments Pt uses 4WW to walk longer distances. She walks with bilateral hip external rotation, WBOS, and increased trunk flexion PT-OP-M Strength Start: 09/14/21 12:03 Freq: Status: Active Protocol: Document 09/21/21 14:30 AW (Rec: 09/21/21 16:06 AW [id number]) Hip Strength Hip Manual Muscle Testing Left Flexion (L2) 4 Good Extension (S1) 4- Good- Abduction 3+ Fair+ Right Flexion (L2) 4- Good- Extension (S1) 4- Good- Abduction 3 Fair Knee Strength Knee Manual Muscle Testing bilat Flexion (S2) 4- Good- Extension (L3) 4 Good Ankle/Foot Strength Ankle and Foot Manual Muscle Testing bilat Dorsiflexion (L4) 4 Good Plantarflexion (S1) 3+ Fair+ PT-OP-Q Treatments Start: 09/14/21 12:03 Freq: Status: Active Protocol: Document 11/17/21 11:18 AW (Rec: 11/17/21 12:02 AW [id number]) Gait Training Gait Activity Gait with RW Device Used 4WW Level of Assistance S Surface firm Distance/Duration 170 ft in 1 min 56 sec Treatment Focus endurance Comments Beginning of session today. Increased respirations after ~ 90 feet. Pt needed longer than usual seated rest break at end. Neuro Re-Education Treatment Balance Activities cathie stepping Details fwd/lateral Surface firm Equipment 5 hurdles, CGA Comments 5 hurdles fwd x 2 5 hurdles lateral x 2 Seated rest break between each lap. BP assessed as noted above. PT-OP-T Assessment and Plan Start: 09/14/21 12:03 Freq: Status: Active Protocol: Document 11/17/21 11:18 AW (Rec: 11/17/21 12:02 AW [id number]) Physical Therapy Assessment Goals Three Impairment gait Short Term Goal (STG) Yanni will complete 6 minute walk test using 4WW with no rest breaks 10/18/21: PRogresssing: Pt completed 655ft in 6 min w/ 2 stand rest breaks approx 15 sec using 4WW. 11/03/21: STG Duration 5 weeks - 10/26/21- progressing Halfway Goal (LTG) Yanni will improve 6MWT by 10% compared with performance on STG assessment LTG Duration 10 weeks - 11/30/21 Two Impairment strength Short Term Goal (STG) Yanni will improve her hip strength to 4/5 bilaterally to improve gait stability 10/20/21 - Goal progress: flexion 4-/5, abduction 4/5, aduction 4/5 STG Duration 5 weeks - 10/26/21 Draw Frame Runner Goal (LTG) Yanni will improve her lower extremity strength to be able to ascend and descend a set of stairs without hip drop. LTG Duration 10 weeks - 11/30/21 One Impairment balance Halfway Goal (LTG) Pt will improve Carlin Balance Score from 40/56 to 46/56 points or greater as a measure of reduced falls risk LTG Duration 10 weeks - 11/30/21 Progress Towards Goals Progress Towards Goals Slow Progress due to Activity Tolerance,Slow Progress due to Medical Issues Progress Comments Pt's functional reserve is reduced last two visits secondary to suspected peritonitis. 6 Minute Walk was progressing before this change in condition. Pt would benefit from continued therapy to improve strength for daily activities, educate on energy conservation techniques, and improve activity tolerance. Assessment Summary Assessment Pt has severely limited functional reserve today and was assessed hypotensive during bout of activity. Alerted family of BP values and cut treatment short. Plan to continue therapy once pt is able to tolerate more. Physical Therapy Plan Frequency and Duration Frequency of Treatment 2x/Week Duration of Treatment 8 weeks Plan of Care Start Date 12/01/21 Plan of Care End Date 01/26/22 Therapeutic Interventions Therapeutic Interventions Balance Training,Gait Training ,Home Exercise Program, Neuromuscular Re-education, Therapeutic Activities, Therapeutic Exercises Next Visit Focus/Plan Next Note Type Treatment Note Next Visit Plan Assess vitals. Continue sport cord, sit to stand from progressively lower surfaces. Progress aerobic conditioning, functional strength, and balance work.
--- NOTE | 2021-11-17 12:03 | PT.OPPOC ---
Physical, Occupational & Speech Therapy At [facility] Current Diagnoses Difficulty in walking, not elsewhere classified (11/17/21) Other abnormalities of gait and mobility (11/17/21) Visit Care Team Role Provider Type Todd Lanza DO Attending Provider Physician Family Provider Primary Care Provider Referring Provider Specialty: Family Practice Address: [address] [place] [address], [facility] Email: Plan Of Care PT-OP-T Assessment and Plan Start: 09/14/21 12:03 Freq: Status: Active Protocol: Document 11/17/21 11:18 AW (Rec: 11/17/21 12:02 AW [id number]) Physical Therapy Assessment Goals Three Impairment gait Short Term Goal (STG) Yanni will complete 6 minute walk test using 4WW with no rest breaks 10/18/21: PRogresssing: Pt completed 655ft in 6 min w/ 2 stand rest breaks approx 15 sec using 4WW. 11/03/21: STG Duration 5 weeks - 10/26/21- progressing Fdc Goal (LTG) Yanni will improve 6MWT by 10% compared with performance on STG assessment LTG Duration 10 weeks - 11/30/21 Two Impairment strength Short Term Goal (STG) Yanni will improve her hip strength to 4/5 bilaterally to improve gait stability 10/20/21 - Goal progress: flexion 4-/5, abduction 4/5, aduction 4/5 STG Duration 5 weeks - 10/26/21 Fdc Goal (LTG) Yanni will improve her lower extremity strength to be able to ascend and descend a set of stairs without hip drop. LTG Duration 10 weeks - 11/30/21 One Impairment balance Fdc Goal (LTG) Pt will improve Carlin Balance Score from 40/56 to 46/56 points or greater as a measure of reduced falls risk LTG Duration 10 weeks - 11/30/21 Progress Towards Goals Progress Towards Goals Slow Progress due to Activity Tolerance,Slow Progress due to Medical Issues Progress Comments Pt's functional reserve is reduced last two visits secondary to suspected peritonitis. 6 Minute Walk was progressing before this change in condition. Pt would benefit from continued therapy to improve strength for daily activities, educate on energy conservation techniques, and improve activity tolerance. Assessment Summary Assessment Pt has severely limited functional reserve today and was assessed hypotensive during bout of activity. Alerted family of BP values and cut treatment short. Plan to continue therapy once pt is able to tolerate more. Physical Therapy Plan Frequency and Duration Frequency of Treatment 2x/Week Duration of Treatment 8 weeks Plan of Care Start Date 12/01/21 Plan of Care End Date 01/26/22 Therapeutic Interventions Therapeutic Interventions Balance Training,Gait Training ,Home Exercise Program, Neuromuscular Re-education, Therapeutic Activities, Therapeutic Exercises Next Visit Focus/Plan Next Note Type Treatment Note Next Visit Plan Assess vitals. Continue sport cord, sit to stand from progressively lower surfaces. Progress aerobic conditioning, functional strength, and balance work. Plan of Care Dates Plan of Care Start Date 12/01/21 Plan of Care End Date 01/26/22 Electronically Signed by: Rosemarie Matos, PT 11/17/21 [id number] Please Sign and Return: I have reviewed this Plan of Care and certify that the skilled therapy services above are required to meet the patient?s needs. Physician Signature Date Printed Name and Credentials Clinical Instructor Signature Printed Name and Credentials
--- NOTE | 2021-12-01 09:46 | PT.OTN ---
Current Diagnoses Difficulty in walking, not elsewhere classified (12/01/21) Other abnormalities of gait and mobility (12/01/21) Physical Therapy Treatment Note PT-OP-A Visit Information Start: 09/14/21 12:03 Freq: Status: Active Protocol: Document 12/01/21 09:06 SP (Rec: 12/01/21 09:48 SP [id number]) Out-Patient Physical Therapy Visit Information Visit Information Visit Type Treatment Note Visit Note BP post shuttle recovery and pre gait/balance. (this am at home 131/73) RUE: 120/63 automated, HR 64 manual Visit Start Time 09:06 Visit Stop Time 09:46 Total Visit Minutes 40 Visit Number 16 Number of AD SETTER Visits 1 Evaluation Information Evaluation Date 09/21/21 PT-OP-B Current Condition Start: 09/14/21 12:03 Freq: Status: Active Protocol: Document 09/21/21 14:30 AW (Rec: 09/14/21 12:45 AW [id number]) Current Condition History of Current Condition Onset Date years Current Complaints poor endurance, decreased balance, falls History of Current Condition Yanni is most concerned with her endurance and reports she has not fallen in over one year. She is always tired and has a lousy appetite. She is followed by a travel registered nurse nicu, is using a nutrition supplement, and is trying to eat more eggs for protein. She is using a 4WW for nearly all community mobility. At home, she uses no assistive device unless she is trying to carry items in which case she will use FWW with a tray attachment. She reports achey pain in her anterior thighs when she walks ; she has chronic back and neck pain. She underwent left mastectomy within the past year. She was not a candidate for adjuvant radiation due to pre-existing CREST syndrome and sceleroderma. She has a fib and is now on warfarin. She has renal failure and currently does peritoneal dialysis at home. Her daughter and daughter's have lived with her for >1 year. Pt currently manages all her ADL 's. Her daughter and son in law assist with IADL's. Daughter provides set up assist for peritoneal dialysis . Pt lives in single-level home with 4 PRASANTH and B rails. She has a hurrycane, 4WW, FWW, shower chair, lift recliner, flat bed with bed rails. Suction grab bars in shower. Prior Treatments and Tests Prior PT at this clinic for similar concerns Treatment Goals Patient/Caregiver Goals Stand long enough to bake. Energy enough to do laundry without assist. Increase endurance, strength, and balance Personal Factors Other Personal Factors That May Effect CREST syndrome, Raynaud's, Therapy/Recovery GERD, scleroderma, renal failure, osteoporosis, neck and back pain. PT-OP-C Subjective Start: 09/14/21 12:03 Freq: Status: Active Protocol: Document 12/01/21 09:06 SP (Rec: 12/01/21 09:48 SP [id number]) OP-PT Subjective Patient Comments Patient Comments Pt states feels alot better, got a good night sleep last tx . PT-OP-D Balance Start: 09/14/21 12:03 Freq: Status: Active Protocol: Document 09/21/21 14:30 AW (Rec: 09/21/21 16:06 AW [id number]) Balance Tests Romberg Romberg WNL EO; increased sway EC Tandem Tandem Standing unable PT-OP-E Functional Tests Start: 09/14/21 12:03 Freq: Status: Active Protocol: Document 09/21/21 14:30 AW (Rec: 09/21/21 16:06 AW [id number]) Functional Tests 2 Minute Walk Test Distance 380' in 3 minutes Device Used 4WW Comments 0.64 m/s average gait speed. 2 laps completed; 2nd lap took 3 more seconds PT-OP-G Mobility & Gait Start: 09/14/21 12:03 Freq: Status: Active Protocol: Document 09/21/21 14:30 AW (Rec: 09/21/21 16:06 AW [id number]) OP Mobility Evaluation Transfers Sit to Stand definite use of hands Bed to Chair Transfers SBA with increased time OP Gait Assessment Gait Gait Assistance Required: Standby Assistance Distance (Feet) 400 Assistive Devices Assistive Device Gait Belt,4 Wheeled Walker Gait Deviations General Gait Pattern Antalgic,Wide Based Gait Comments Gait Comments Pt uses 4WW to walk longer distances. She walks with bilateral hip external rotation, WBOS, and increased trunk flexion PT-OP-M Strength Start: 09/14/21 12:03 Freq: Status: Active Protocol: Document 09/21/21 14:30 AW (Rec: 09/21/21 16:06 AW [id number]) Hip Strength Hip Manual Muscle Testing Left Flexion (L2) 4 Good Extension (S1) 4- Good- Abduction 3+ Fair+ Right Flexion (L2) 4- Good- Extension (S1) 4- Good- Abduction 3 Fair Knee Strength Knee Manual Muscle Testing bilat Flexion (S2) 4- Good- Extension (L3) 4 Good Ankle/Foot Strength Ankle and Foot Manual Muscle Testing bilat Dorsiflexion (L4) 4 Good Plantarflexion (S1) 3+ Fair+ PT-OP-Q Treatments Start: 09/14/21 12:03 Freq: Status: Active Protocol: Document 12/01/21 09:06 SP (Rec: 12/01/21 09:48 SP [id number]) Gym Equipment Shuttle Recovery Bilateral Squats Details cued knee alignment with toes and Tb around knees Resistance 50# Shuttle Recovery Platform Stable Reps/Time x20 Unilateral Squats Details cued knee alignment with toes see medial insole Resistance 25# Shuttle Recovery Platform Stable Reps/Time 2x10 B Gait Training Gait Activity Gait with RW Device Used 4WW Level of Assistance S Surface firm Distance/Duration 545 ft in 5 min 15 sec Treatment Focus endurance Comments Beginning of session today. elevated respirations and decreased stride and R>L LE foot clearance as distanct progressed. Neuro Re-Education Treatment Balance Activities cathie stepping Details fwd only today Surface firm Equipment 4 hurdles, CGA- Min A Comments R foot caught cathie trailing LE contact rail and Min A recovery. only tolerate 2 laps today. performed end tx. Self-Care/Home Management Treatment Activities Self-Care/Home Management Activities Pt will see if any cancellations for 2x/wk through end December and ok with adding 1 more therapist for progression and not got without/ less appts with primary PT/ AD SETTER schedules. PT-OP-T Assessment and Plan Start: 09/14/21 12:03 Freq: Status: Active Protocol: Document 12/01/21 09:06 SP (Rec: 12/01/21 09:48 SP [id number]) Physical Therapy Assessment Goals Three Impairment gait Short Term Goal (STG) Yanni will complete 6 minute walk test using 4WW with no rest breaks 10/18/21: PRogresssing: Pt completed 655ft in 6 min w/ 2 stand rest breaks approx 15 sec using 4WW. 11/03/21: STG Duration 5 weeks - 3/2/22- progressing Snf Goal (LTG) Yanni will improve 6MWT by 10% compared with performance on STG assessment LTG Duration 10 weeks - 11/30/21 Two Impairment strength Short Term Goal (STG) Yanni will improve her hip strength to 4/5 bilaterally to improve gait stability 10/20/21 - Goal progress: flexion 4-/5, abduction 4/5, aduction 4/5 STG Duration 5 weeks - 10/26/21 Wardrobe Mistress Goal (LTG) Yanni will improve her lower extremity strength to be able to ascend and descend a set of stairs without hip drop. LTG Duration 10 weeks - 11/30/21 One Impairment balance Snf Goal (LTG) Pt will improve Carlin Balance Score from 40/56 to 46/56 points or greater as a measure of reduced falls risk LTG Duration 10 weeks - 11/30/21 Assessment Summary Assessment Pt had improved BPs today during activity, decreased endurance overall able to complete 3 laps around clinic but decreased foot clearance and stride. Pt reports slept better and makes a difference in activity level. Physical Therapy Plan Frequency and Duration Frequency of Treatment 2x/Week Duration of Treatment 8 weeks Plan of Care Start Date 12/01/21 Plan of Care End Date 01/26/22 Therapeutic Interventions Therapeutic Interventions Balance Training,Gait Training ,Home Exercise Program, Neuromuscular Re-education, Therapeutic Activities, Therapeutic Exercises Next Visit Focus/Plan Next Note Type Treatment Note Next Visit Plan Assess vitals. Continue sport cord, sit to stand from progressively lower surfaces. Progress aerobic conditioning, functional strength, and balance work.
--- NOTE | 2021-12-06 09:15 | PT-OP ANOTE ---
pt cancelled same day appt <24 hrs, having intestinal issues and unable to attend PT today.
--- NOTE | 2021-12-27 13:42 | PT.OTN ---
Current Diagnoses Difficulty in walking, not elsewhere classified (12/27/21) Other abnormalities of gait and mobility (12/27/21) Physical Therapy Treatment Note PT-OP-A Visit Information Start: 09/14/21 12:03 Freq: Status: Active Protocol: Document 12/27/21 13:01 AW (Rec: 12/27/21 13:42 AW [id number]) Out-Patient Physical Therapy Visit Information Visit Information Visit Type Treatment Note Visit Note BP post Biodex (RUE, automated ): 127/66 HR 78. Visit Start Time 13:00 Visit Stop Time 13:40 Total Visit Minutes 40 Visit Number 17 Number of NURSING UNIT MANAGER Visits 0 Evaluation Information Evaluation Date 09/21/21 PT-OP-B Current Condition Start: 09/14/21 12:03 Freq: Status: Active Protocol: Document 09/21/21 14:30 AW (Rec: 09/14/21 12:45 AW [id number]) Current Condition History of Current Condition Onset Date years Current Complaints poor endurance, decreased balance, falls History of Current Condition Yanni is most concerned with her endurance and reports she has not fallen in over one year. She is always tired and has a lousy appetite. She is followed by a registered dietitian, is using a nutrition supplement, and is trying to eat more eggs for protein. She is using a 4WW for nearly all community mobility. At home, she uses no assistive device unless she is trying to carry items in which case she will use FWW with a tray attachment. She reports achey pain in her anterior thighs when she walks ; she has chronic back and neck pain. She underwent left mastectomy within the past year. She was not a candidate for adjuvant radiation due to pre-existing CREST syndrome and sceleroderma. She has a fib and is now on warfarin. She has renal failure and currently does peritoneal dialysis at home. Her daughter and daughter's have lived with her for >1 year. Pt currently manages all her ADL 's. Her daughter and son in law assist with IADL's. Daughter provides set up assist for peritoneal dialysis . Pt lives in single-level home with 4 PRASANTH and B rails. She has a hurrycane, 4WW, FWW, shower chair, lift recliner, flat bed with bed rails. Suction grab bars in shower. Prior Treatments and Tests Prior PT at this clinic for similar concerns Treatment Goals Patient/Caregiver Goals Stand long enough to bake. Energy enough to do laundry without assist. Increase endurance, strength, and balance Personal Factors Other Personal Factors That May Effect CREST syndrome, Raynaud's, Therapy/Recovery GERD, scleroderma, renal failure, osteoporosis, neck and back pain. PT-OP-C Subjective Start: 09/14/21 12:03 Freq: Status: Active Protocol: Document 12/27/21 13:01 AW (Rec: 12/27/21 13:42 AW [id number]) OP-PT Subjective Patient Comments Patient Comments Yanni reports some tightness/ pain in both hips, thighs. Worse on the right. Energy today is just ok. PT-OP-D Balance Start: 09/14/21 12:03 Freq: Status: Active Protocol: Document 09/21/21 14:30 AW (Rec: 09/21/21 16:06 AW [id number]) Balance Tests Romberg Romberg WNL EO; increased sway EC Tandem Tandem Standing unable PT-OP-E Functional Tests Start: 09/14/21 12:03 Freq: Status: Active Protocol: Document 09/21/21 14:30 AW (Rec: 09/21/21 16:06 AW [id number]) Functional Tests 2 Minute Walk Test Distance 380' in 3 minutes Device Used 4WW Comments 0.64 m/s average gait speed. 2 laps completed; 2nd lap took 3 more seconds PT-OP-G Mobility & Gait Start: 09/14/21 12:03 Freq: Status: Active Protocol: Document 09/21/21 14:30 AW (Rec: 09/21/21 16:06 AW [id number]) OP Mobility Evaluation Transfers Sit to Stand definite use of hands Bed to Chair Transfers SBA with increased time OP Gait Assessment Gait Gait Assistance Required: Standby Assistance Distance (Feet) 400 Assistive Devices Assistive Device Gait Belt,4 Wheeled Walker Gait Deviations General Gait Pattern Antalgic,Wide Based Gait Comments Gait Comments Pt uses 4WW to walk longer distances. She walks with bilateral hip external rotation, WBOS, and increased trunk flexion PT-OP-M Strength Start: 09/14/21 12:03 Freq: Status: Active Protocol: Document 09/21/21 14:30 AW (Rec: 01/26/22 16:06 AW [id number]) Hip Strength Hip Manual Muscle Testing Left Flexion (L2) 4 Good Extension (S1) 4- Good- Abduction 3+ Fair+ Right Flexion (L2) 4- Good- Extension (S1) 4- Good- Abduction 3 Fair Knee Strength Knee Manual Muscle Testing bilat Flexion (S2) 4- Good- Extension (L3) 4 Good Ankle/Foot Strength Ankle and Foot Manual Muscle Testing bilat Dorsiflexion (L4) 4 Good Plantarflexion (S1) 3+ Fair+ PT-OP-Q Treatments Start: 09/14/21 12:03 Freq: Status: Active Protocol: Document 12/27/21 13:01 AW (Rec: 12/27/21 13:42 AW [id number]) Cardio Equipment Recumbent Elliptical (Breathing Buildings) Duration (Minutes) 6 Resistance 1 Seat Position 9 Other UE and LE use; target 20-30 rpm Therapeutic Exercises Supine Exercises piriformis stretch Supine Exercise Name piriformis stretch Side bilateral Resistance opp foot planted Reps/Minutes 30 SH x 4 Comments HEP HS stretch Supine Exercise Name HS stretch Side bilateral Equipment Used manual SKTC Supine Exercise Name SKTC Side bilateral Reps/Minutes 30-60 SH x 3 Comments HEP supine clam Supine Exercise Name supine clam-HEP reviewed Side bilateral Resistance yellow loop Reps/Minutes 2x10 Comments good slow pacing control. SLR Supine Exercise Name SLR- HEP reviewed Side bilateral Resistance AROM Reps/Minutes x10 (slight lag last 2 reps) Comments cued quad fac/ knee extension then lift each rep Gait Training Gait Activity Gait with RW Device Used 4WW Level of Assistance S Surface firm Distance/Duration 175 ft in 2 minutes Treatment Focus endurance Comments Stopped due to fatigue. PT-OP-T Assessment and Plan Start: 09/14/21 12:03 Freq: Status: Active Protocol: Document 12/27/21 13:01 AW (Rec: 12/27/21 13:42 AW [id number]) Physical Therapy Assessment Goals Three Impairment gait Short Term Goal (STG) Yanni will complete 6 minute walk test using 4WW with no rest breaks 10/18/21: PRogresssing: Pt completed 655ft in 6 min w/ 2 stand rest breaks approx 15 sec using 4WW. 11/03/21: STG Duration 5 weeks - 10/26/21- progressing Call Taker Goal (LTG) Yanni will improve 6MWT by 10% compared with performance on STG assessment LTG Duration 10 weeks - 11/30/21 Two Impairment strength Short Term Goal (STG) Yanni will improve her hip strength to 4/5 bilaterally to improve gait stability 10/20/21 - Goal progress: flexion 4-/5, abduction 4/5, aduction 4/5 STG Duration 5 weeks - 10/26/21 Call Taker Goal (LTG) Yanni will improve her lower extremity strength to be able to ascend and descend a set of stairs without hip drop. LTG Duration 10 weeks - 11/30/21 One Impairment balance Call Taker Goal (LTG) Pt will improve Carlin Balance Score from 40/56 to 46/56 points or greater as a measure of reduced falls risk LTG Duration 10 weeks - 11/30/21 Assessment Summary Assessment Pt states sleep has been difficult and energy has been low. I mostly just sit. Yanni has increased tremors with manual stretches and severe limitation in hamstring length. Focused on supine stretches and exercises today for LE strength and encouraged pt to continue at home in preparation for increased standing activity. Physical Therapy Plan Frequency and Duration Frequency of Treatment 2x/Week Duration of Treatment 8 weeks Plan of Care Start Date 12/01/21 Plan of Care End Date 01/26/22 Therapeutic Interventions Therapeutic Interventions Balance Training,Gait Training ,Home Exercise Program, Neuromuscular Re-education, Therapeutic Activities, Therapeutic Exercises Next Visit Focus/Plan Next Note Type Treatment Note Next Visit Plan Assess vitals. Continue sport cord, sit to stand from progressively lower surfaces. Progress aerobic conditioning, functional strength, and balance work.
--- NOTE | 2021-12-29 13:43 | PT.OTN ---
Current Diagnoses Difficulty in walking, not elsewhere classified (12/29/21) Other abnormalities of gait and mobility (12/29/21) Physical Therapy Treatment Note PT-OP-A Visit Information Start: 09/14/21 12:03 Freq: Status: Active Protocol: Document 12/29/21 12:59 AW (Rec: 12/29/21 13:43 AW [id number]) Out-Patient Physical Therapy Visit Information Visit Information Visit Type Treatment Note Visit Note BP: 116/67 HR 76 after balance work. Visit Start Time 13:00 Visit Stop Time 13:41 Total Visit Minutes 41 Visit Number 18 Number of ENGINEERING AGENT Visits 0 Evaluation Information Evaluation Date 09/21/21 PT-OP-B Current Condition Start: 09/14/21 12:03 Freq: Status: Active Protocol: Document 09/21/21 14:30 AW (Rec: 09/14/21 12:45 AW [id number]) Current Condition History of Current Condition Onset Date years Current Complaints poor endurance, decreased balance, falls History of Current Condition Yanni is most concerned with her endurance and reports she has not fallen in over one year. She is always tired and has a lousy appetite. She is followed by a advanced practice registered nurse, is using a nutrition supplement, and is trying to eat more eggs for protein. She is using a 4WW for nearly all community mobility. At home, she uses no assistive device unless she is trying to carry items in which case she will use FWW with a tray attachment. She reports achey pain in her anterior thighs when she walks ; she has chronic back and neck pain. She underwent left mastectomy within the past year. She was not a candidate for adjuvant radiation due to pre-existing CREST syndrome and sceleroderma. She has a fib and is now on warfarin. She has renal failure and currently does peritoneal dialysis at home. Her daughter and daughter's have lived with her for >1 year. Pt currently manages all her ADL 's. Her daughter and son in law assist with IADL's. Daughter provides set up assist for peritoneal dialysis . Pt lives in single-level home with 4 PRASANTH and B rails. She has a hurrycane, 4WW, FWW, shower chair, lift recliner, flat bed with bed rails. Suction grab bars in shower. Prior Treatments and Tests Prior PT at this clinic for similar concerns Treatment Goals Patient/Caregiver Goals Stand long enough to bake. Energy enough to do laundry without assist. Increase endurance, strength, and balance Personal Factors Other Personal Factors That May Effect CREST syndrome, Raynaud's, Therapy/Recovery GERD, scleroderma, renal failure, osteoporosis, neck and back pain. PT-OP-C Subjective Start: 09/14/21 12:03 Freq: Status: Active Protocol: Document 12/29/21 12:59 AW (Rec: 12/29/21 13:43 AW [id number]) OP-PT Subjective Patient Comments Patient Comments Yanni was sore after last treatment. Still not sleeping well PT-OP-D Balance Start: 09/14/21 12:03 Freq: Status: Active Protocol: Document 09/21/21 14:30 AW (Rec: 09/21/21 16:06 AW [id number]) Balance Tests Romberg Romberg WNL EO; increased sway EC Tandem Tandem Standing unable PT-OP-E Functional Tests Start: 09/14/21 12:03 Freq: Status: Active Protocol: Document 09/21/21 14:30 AW (Rec: 09/21/21 16:06 AW [id number]) Functional Tests 2 Minute Walk Test Distance 380' in 3 minutes Device Used 4WW Comments 0.64 m/s average gait speed. 2 laps completed; 2nd lap took 3 more seconds PT-OP-G Mobility & Gait Start: 09/14/21 12:03 Freq: Status: Active Protocol: Document 09/21/21 14:30 AW (Rec: 09/21/21 16:06 AW [id number]) OP Mobility Evaluation Transfers Sit to Stand definite use of hands Bed to Chair Transfers SBA with increased time OP Gait Assessment Gait Gait Assistance Required: Standby Assistance Distance (Feet) 400 Assistive Devices Assistive Device Gait Belt,4 Wheeled Walker Gait Deviations General Gait Pattern Antalgic,Wide Based Gait Comments Gait Comments Pt uses 4WW to walk longer distances. She walks with bilateral hip external rotation, WBOS, and increased trunk flexion PT-OP-M Strength Start: 09/14/21 12:03 Freq: Status: Active Protocol: Document 09/21/21 14:30 AW (Rec: 09/21/21 16:06 AW [id number]) Hip Strength Hip Manual Muscle Testing Left Flexion (L2) 4 Good Extension (S1) 4- Good- Abduction 3+ Fair+ Right Flexion (L2) 4- Good- Extension (S1) 4- Good- Abduction 3 Fair Knee Strength Knee Manual Muscle Testing bilat Flexion (S2) 4- Good- Extension (L3) 4 Good Ankle/Foot Strength Ankle and Foot Manual Muscle Testing bilat Dorsiflexion (L4) 4 Good Plantarflexion (S1) 3+ Fair+ PT-OP-Q Treatments Start: 09/14/21 12:03 Freq: Status: Active Protocol: Document 12/29/21 12:59 AW (Rec: 12/29/21 13:43 AW [id number]) Cardio Equipment Recumbent Elliptical (Biodex) Duration (Minutes) 6 Resistance 1 Seat Position 9 Other UE and LE use; target 20-30 rpm Therapeutic Exercises Standing Exercises step up Standing Exercise Name lateral with HR support Side bilateral Equipment Used 6 step Reps/Minutes 2x8 Comments cued foot clearancef Other Exercises sit to stand Other Exercise Name sit to stand Equipment Used 18 mesh chair no UE support ( arms front) Reps/Minutes 2x3 reps Comments unable to complete 4th rep Neuro Re-Education Treatment Balance Activities step tap Details step tap Equipment 6 step Reps/Duration x8 BLE Comments between sets of lateral step ups uneven surface Surface blue foam Comments - WBOS - EO with head turns and nods near // but pt only contacts intermittently cathie stepping Details fwd only today Surface firm Equipment 3 hurdles, CGA- Min A Comments R foot caught cathie trailing LE contact rail and Min A recovery. only tolerate 2 laps today. performed end tx. PT-OP-T Assessment and Plan Start: 09/14/21 12:03 Freq: Status: Active Protocol: Document 12/29/21 12:59 AW (Rec: 12/29/21 13:43 AW [id number]) Physical Therapy Assessment Goals Three Impairment gait Short Term Goal (STG) Yanni will complete 6 minute walk test using 4WW with no rest breaks 10/18/21: PRogresssing: Pt completed 655ft in 6 min w/ 2 stand rest breaks approx 15 sec using 4WW. 11/03/21: STG Duration 5 weeks - 10/26/21- progressing Plastics And Composites Inspector Goal (LTG) Yanni will improve 6MWT by 10% compared with performance on STG assessment LTG Duration 10 weeks - 01/26/22 Two Impairment strength Short Term Goal (STG) Yanni will improve her hip strength to 4/5 bilaterally to improve gait stability 10/20/21 - Goal progress: flexion 4-/5, abduction 4/5, aduction 4/5 STG Duration 5 weeks - 10/26/21 Assisted Goal (LTG) Yanni will improve her lower extremity strength to be able to ascend and descend a set of stairs without hip drop. LTG Duration 10 weeks - 01/26/22 One Impairment balance Assisted Goal (LTG) Pt will improve Carlin Balance Score from 40/56 to 46/56 points or greater as a measure of reduced falls risk LTG Duration 10 weeks - 01/26/22 Assessment Summary Assessment Yanni was sore after last treatment but was able to continue supine exercises at home. Encouraged pt to continue with those and we will re-assess at next visit. Pt's low level of resiliency is affecting her rehab outcomes but she continues to show good effort with all activities. She needs seated rest breaks between most activities today. Physical Therapy Plan Frequency and Duration Frequency of Treatment 2x/Week Duration of Treatment 8 weeks Plan of Care Start Date 12/01/21 Plan of Care End Date 01/26/22 Therapeutic Interventions Therapeutic Interventions Balance Training,Gait Training ,Home Exercise Program, Neuromuscular Re-education, Therapeutic Activities, Therapeutic Exercises Next Visit Focus/Plan Next Note Type Treatment Note
--- NOTE | 2022-01-03 12:07 | PT-OP ANOTE ---
Pt called <24 hrs having abdominal cramping and unable to attend appt.
--- NOTE | 2022-01-05 13:46 | PT.OTN ---
Current Diagnoses Difficulty in walking, not elsewhere classified (01/05/22) Other abnormalities of gait and mobility (01/05/22) Physical Therapy Treatment Note PT-OP-A Visit Information Start: 09/14/21 12:03 Freq: Status: Active Protocol: Document 01/05/22 13:01 AW (Rec: 01/05/22 13:46 AW [id number]) Out-Patient Physical Therapy Visit Information Visit Information Visit Type Treatment Note Visit Start Time 13:00 Visit Stop Time 13:40 Total Visit Minutes 40 Visit Number 19 Number of MATERIAL LIAISON Visits 0 Evaluation Information Evaluation Date 09/21/21 PT-OP-B Current Condition Start: 09/14/21 12:03 Freq: Status: Active Protocol: Document 09/21/21 14:30 AW (Rec: 09/14/21 12:45 AW [id number]) Current Condition History of Current Condition Onset Date years Current Complaints poor endurance, decreased balance, falls History of Current Condition Yanni is most concerned with her endurance and reports she has not fallen in over one year. She is always tired and has a lousy appetite. She is followed by a registered nurse midwife, is using a nutrition supplement, and is trying to eat more eggs for protein. She is using a 4WW for nearly all community mobility. At home, she uses no assistive device unless she is trying to carry items in which case she will use FWW with a tray attachment. She reports achey pain in her anterior thighs when she walks ; she has chronic back and neck pain. She underwent left mastectomy within the past year. She was not a candidate for adjuvant radiation due to pre-existing CREST syndrome and sceleroderma. She has a fib and is now on warfarin. She has renal failure and currently does peritoneal dialysis at home. Her daughter and daughter's have lived with her for >1 year. Pt currently manages all her ADL 's. Her daughter and son in law assist with IADL's. Daughter provides set up assist for peritoneal dialysis . Pt lives in single-level home with 4 PRASANTH and B rails. She has a hurrycane, 4WW, FWW, shower chair, lift recliner, flat bed with bed rails. Suction grab bars in shower. Prior Treatments and Tests Prior PT at this clinic for similar concerns Treatment Goals Patient/Caregiver Goals Stand long enough to bake. Energy enough to do laundry without assist. Increase endurance, strength, and balance Personal Factors Other Personal Factors That May Effect CREST syndrome, Raynaud's, Therapy/Recovery GERD, scleroderma, renal failure, osteoporosis, neck and back pain. PT-OP-C Subjective Start: 09/14/21 12:03 Freq: Status: Active Protocol: Document 01/05/22 13:01 AW (Rec: 01/05/22 13:46 AW [id number]) OP-PT Subjective Patient Comments Patient Comments Yanni has been busy with family visiting. Has been doing less exercise but more activity including walking on uneven terrain at [place]. PT-OP-D Balance Start: 09/14/21 12:03 Freq: Status: Active Protocol: Document 09/21/21 14:30 AW (Rec: 09/21/21 16:06 AW [id number]) Balance Tests Romberg Romberg WNL EO; increased sway EC Tandem Tandem Standing unable PT-OP-E Functional Tests Start: 09/14/21 12:03 Freq: Status: Active Protocol: Document 09/21/21 14:30 AW (Rec: 09/21/21 16:06 AW [id number]) Functional Tests 2 Minute Walk Test Distance 380' in 3 minutes Device Used 4WW Comments 0.64 m/s average gait speed. 2 laps completed; 2nd lap took 3 more seconds PT-OP-G Mobility & Gait Start: 09/14/21 12:03 Freq: Status: Active Protocol: Document 09/21/21 14:30 AW (Rec: 09/21/21 16:06 AW [id number]) OP Mobility Evaluation Transfers Sit to Stand definite use of hands Bed to Chair Transfers SBA with increased time OP Gait Assessment Gait Gait Assistance Required: Standby Assistance Distance (Feet) 400 Assistive Devices Assistive Device Gait Belt,4 Wheeled Walker Gait Deviations General Gait Pattern Antalgic,Wide Based Gait Comments Gait Comments Pt uses 4WW to walk longer distances. She walks with bilateral hip external rotation, WBOS, and increased trunk flexion PT-OP-M Strength Start: 09/14/21 12:03 Freq: Status: Active Protocol: Document 09/21/21 14:30 AW (Rec: 09/21/21 16:06 AW [id number]) Hip Strength Hip Manual Muscle Testing Left Flexion (L2) 4 Good Extension (S1) 4- Good- Abduction 3+ Fair+ Right Flexion (L2) 4- Good- Extension (S1) 4- Good- Abduction 3 Fair Knee Strength Knee Manual Muscle Testing bilat Flexion (S2) 4- Good- Extension (L3) 4 Good Ankle/Foot Strength Ankle and Foot Manual Muscle Testing bilat Dorsiflexion (L4) 4 Good Plantarflexion (S1) 3+ Fair+ PT-OP-Q Treatments Start: 09/14/21 12:03 Freq: Status: Active Protocol: Document 01/05/22 13:01 AW (Rec: 01/05/22 13:46 AW [id number]) Cardio Equipment Recumbent Elliptical ([employer]) Duration (Minutes) 6 Resistance 2 Seat Position 9 Other UE and LE use; target 20-30 rpm Therapeutic Exercises Standing Exercises step up Standing Exercise Name fwd, lateral with unilat rail support Side bilateral Equipment Used 6 step x 4 Reps/Minutes step over step fwd; step to lateral Comments seated rest after 4 steps x 2 Other Exercises sit to stand Other Exercise Name sit to stand Equipment Used from 4WW stabilized at wall Reps/Minutes x12; x10 Comments primary limitation: back achy Neuro Re-Education Treatment Balance Activities SLS Details SLS - modified with dynadisc Equipment 4WW for prn support Reps/Duration 30 sec x6 step tap Details step tap Equipment 8 step Reps/Duration x10 BLE Comments 2 sets with seated break between PT-OP-T Assessment and Plan Start: 09/14/21 12:03 Freq: Status: Active Protocol: Document 01/05/22 13:01 AW (Rec: 01/05/22 13:46 AW [id number]) Physical Therapy Assessment Goals Three Impairment gait Short Term Goal (STG) Yanni will complete 6 minute walk test using 4WW with no rest breaks 10/18/21: PRogresssing: Pt completed 655ft in 6 min w/ 2 stand rest breaks approx 15 sec using 4WW. 11/03/21: STG Duration 5 weeks - 10/26/21- progressing First Aid Attendant Goal (LTG) Yanni will improve 6MWT by 10% compared with performance on STG assessment LTG Duration 10 weeks - 01/26/22 Two Impairment strength Short Term Goal (STG) Yanni will improve her hip strength to 4/5 bilaterally to improve gait stability 10/20/21 - Goal progress: flexion 4-/5, abduction 4/5, aduction 4/5 STG Duration 5 weeks - 10/26/21 Usp Goal (LTG) Yanni will improve her lower extremity strength to be able to ascend and descend a set of stairs without hip drop. LTG Duration 10 weeks - 01/26/22 One Impairment balance First Aid Attendant Goal (LTG) Pt will improve Carlin Balance Score from 40/56 to 46/56 points or greater as a measure of reduced falls risk LTG Duration 10 weeks - 01/26/22 Assessment Summary Assessment Yanni has improved activity tolerance today. She requires shorter seated rest breaks between sets of exercise. Discussed reducing sedentary behaviors at home and encouraged her to walk laps in her home and keep track of the number of laps throughout the day. Physical Therapy Plan Frequency and Duration Frequency of Treatment 2x/Week Duration of Treatment 8 weeks Plan of Care Start Date 12/01/21 Plan of Care End Date 01/26/22 Therapeutic Interventions Therapeutic Interventions Balance Training,Gait Training ,Home Exercise Program, Neuromuscular Re-education, Therapeutic Activities, Therapeutic Exercises Next Visit Focus/Plan Next Note Type Treatment Note Next Visit Plan Assess vitals. Revisit sport cord. Progress aerobic conditioning, functional strength, and balance work.
--- NOTE | 2022-01-10 11:14 | PT.OTN ---
Current Diagnoses Difficulty in walking, not elsewhere classified (01/10/22) Other abnormalities of gait and mobility (01/10/22) Physical Therapy Treatment Note PT-OP-A Visit Information Start: 09/14/21 12:03 Freq: Status: Active Protocol: Document 01/10/22 10:32 AW (Rec: 01/10/22 11:14 AW [id number]) Out-Patient Physical Therapy Visit Information Visit Information Visit Type Treatment Note Visit Start Time 10:32 Visit Stop Time 11:10 Total Visit Minutes 38 Visit Number 20 Number of HIGH SPEED OPERATOR Visits 0 Evaluation Information Evaluation Date 09/21/21 Precautions Precautions BP after gait 86/48 HR 54 ( automatic cuff). After 3 minutes: 81/46 HR 49. After 5 minutes: 76/52 HR 75. Terminated PT and asked pt to continue monitoring at home. PT-OP-B Current Condition Start: 09/14/21 12:03 Freq: Status: Active Protocol: Document 09/21/21 14:30 AW (Rec: 09/14/21 12:45 AW [id number]) Current Condition History of Current Condition Onset Date years Current Complaints poor endurance, decreased balance, falls History of Current Condition Yanni is most concerned with her endurance and reports she has not fallen in over one year. She is always tired and has a lousy appetite. She is followed by a registered medical transcriptionist, is using a nutrition supplement, and is trying to eat more eggs for protein. She is using a 4WW for nearly all community mobility. At home, she uses no assistive device unless she is trying to carry items in which case she will use FWW with a tray attachment. She reports achey pain in her anterior thighs when she walks ; she has chronic back and neck pain. She underwent left mastectomy within the past year. She was not a candidate for adjuvant radiation due to pre-existing CREST syndrome and sceleroderma. She has a fib and is now on warfarin. She has renal failure and currently does peritoneal dialysis at home. Her daughter and daughter's have lived with her for >1 year. Pt currently manages all her ADL 's. Her daughter and son in law assist with IADL's. Daughter provides set up assist for peritoneal dialysis . Pt lives in single-level home with 4 PRASANTH and B rails. She has a hurrycane, 4WW, FWW, shower chair, lift recliner, flat bed with bed rails. Suction grab bars in shower. Prior Treatments and Tests Prior PT at this clinic for similar concerns Treatment Goals Patient/Caregiver Goals Stand long enough to bake. Energy enough to do laundry without assist. Increase endurance, strength, and balance Personal Factors Other Personal Factors That May Effect CREST syndrome, Raynaud's, Therapy/Recovery GERD, scleroderma, renal failure, osteoporosis, neck and back pain. PT-OP-C Subjective Start: 09/14/21 12:03 Freq: Status: Active Protocol: Document 01/10/22 10:32 AW (Rec: 01/10/22 11:14 AW [id number]) OP-PT Subjective Patient Comments Patient Comments Yanni has tried to be up more at home, walking laps around the house but not counting laps. PT-OP-D Balance Start: 09/14/21 12:03 Freq: Status: Active Protocol: Document 09/21/21 14:30 AW (Rec: 09/21/21 16:06 AW [id number]) Balance Tests Romberg Romberg WNL EO; increased sway EC Tandem Tandem Standing unable PT-OP-E Functional Tests Start: 09/14/21 12:03 Freq: Status: Active Protocol: Document 09/21/21 14:30 AW (Rec: 09/21/21 16:06 AW [id number]) Functional Tests 2 Minute Walk Test Distance 380' in 3 minutes Device Used 4WW Comments 0.64 m/s average gait speed. 2 laps completed; 2nd lap took 3 more seconds PT-OP-G Mobility & Gait Start: 09/14/21 12:03 Freq: Status: Active Protocol: Document 09/21/21 14:30 AW (Rec: 09/21/21 16:06 AW [id number]) OP Mobility Evaluation Transfers Sit to Stand definite use of hands Bed to Chair Transfers SBA with increased time OP Gait Assessment Gait Gait Assistance Required: Standby Assistance Distance (Feet) 400 Assistive Devices Assistive Device Gait Belt,4 Wheeled Walker Gait Deviations General Gait Pattern Antalgic,Wide Based Gait Comments Gait Comments Pt uses 4WW to walk longer distances. She walks with bilateral hip external rotation, WBOS, and increased trunk flexion PT-OP-M Strength Start: 09/14/21 12:03 Freq: Status: Active Protocol: Document 09/21/21 14:30 AW (Rec: 09/21/21 16:06 AW [id number]) Hip Strength Hip Manual Muscle Testing Left Flexion (L2) 4 Good Extension (S1) 4- Good- Abduction 3+ Fair+ Right Flexion (L2) 4- Good- Extension (S1) 4- Good- Abduction 3 Fair Knee Strength Knee Manual Muscle Testing bilat Flexion (S2) 4- Good- Extension (L3) 4 Good Ankle/Foot Strength Ankle and Foot Manual Muscle Testing bilat Dorsiflexion (L4) 4 Good Plantarflexion (S1) 3+ Fair+ PT-OP-Q Treatments Start: 09/14/21 12:03 Freq: Status: Active Protocol: Document 01/10/22 10:32 AW (Rec: 01/10/22 11:14 AW [id number]) Cardio Equipment Recumbent Bicycle Duration (Minutes) 4 Resistance 3>2 Seat Position 2 Other thighs cramping at 4 min; SOB at 3; improved at 2 Therapeutic Exercises Standing Exercises step up Standing Exercise Name fwd, lateral with unilat rail support Side bilateral Equipment Used 6 step x 4 Reps/Minutes step over step fwd; step to lateral Comments seated rest after 4 steps x 2 Other Exercises sit to stand Other Exercise Name sit to stand Equipment Used from 4WW stabilized at wall Reps/Minutes x16; x ?? Comments primary limitation: back achy Gait Training Gait Activity Gait with RW Device Used 4WW Level of Assistance SBA Surface firm Distance/Duration 180 ft x 2 laps Treatment Focus endurance Comments Between sets of other exercises Neuro Re-Education Treatment Balance Activities SLS Details SLS - modified with dynadisc Equipment 4WW for prn support Reps/Duration 30 sec x6 PT-OP-T Assessment and Plan Start: 09/14/21 12:03 Freq: Status: Active Protocol: Document 01/10/22 10:32 AW (Rec: 01/10/22 11:14 AW [id number]) Physical Therapy Assessment Goals Three Impairment gait Short Term Goal (STG) Yanni will complete 6 minute walk test using 4WW with no rest breaks 10/18/21: PRogresssing: Pt completed 655ft in 6 min w/ 2 stand rest breaks approx 15 sec using 4WW. 11/03/21: STG Duration 5 weeks - 10/26/21- progressing Hydro Electric Station Operator Goal (LTG) Yanni will improve 6MWT by 10% compared with performance on STG assessment LTG Duration 10 weeks - 01/26/22 Two Impairment strength Short Term Goal (STG) Yanni will improve her hip strength to 4/5 bilaterally to improve gait stability 10/20/21 - Goal progress: flexion 4-/5, abduction 4/5, aduction 4/5 STG Duration 5 weeks - 10/26/21 Hydro Electric Station Operator Goal (LTG) Yanni will improve her lower extremity strength to be able to ascend and descend a set of stairs without hip drop. LTG Duration 10 weeks - 01/26/22 One Impairment balance Hydro Electric Station Operator Goal (LTG) Pt will improve Carlin Balance Score from 40/56 to 46/56 points or greater as a measure of reduced falls risk LTG Duration 10 weeks - 01/26/22 Assessment Summary Assessment Yanni feels sluggish today and her BP is low after activity. See notes above. Encouraged pt to continue monitoring BP at home today. Discussed continued attempts to reduce sedentary behaviors by completing laps around the house multiple times per day. Physical Therapy Plan Frequency and Duration Frequency of Treatment 2x/Week Duration of Treatment 8 weeks Plan of Care Start Date 12/01/21 Plan of Care End Date 01/26/22 Therapeutic Interventions Therapeutic Interventions Balance Training,Gait Training ,Home Exercise Program, Neuromuscular Re-education, Therapeutic Activities, Therapeutic Exercises
--- NOTE | 2022-01-12 11:10 | PT.OTN ---
Current Diagnoses Difficulty in walking, not elsewhere classified (01/12/22) Other abnormalities of gait and mobility (01/12/22) Physical Therapy Treatment Note PT-OP-A Visit Information Start: 09/14/21 12:03 Freq: Status: Active Protocol: Document 01/12/22 10:30 DCW (Rec: 01/12/22 11:10 DCW [id number]) Out-Patient Physical Therapy Visit Information Visit Information Visit Type Treatment Note Visit Start Time 10:30 Visit Stop Time 11:15 Total Visit Minutes 45 Visit Number 21 Number of GARBAGE TRUCK HELPER Visits 0 Evaluation Information Evaluation Date 09/21/21 Precautions Precautions BP at start of session: 111/61 Following amb: 122/58 PT-OP-B Current Condition Start: 09/14/21 12:03 Freq: Status: Active Protocol: Document 09/21/21 14:30 AW (Rec: 09/14/21 12:45 AW [id number]) Current Condition History of Current Condition Onset Date years Current Complaints poor endurance, decreased balance, falls History of Current Condition Yanni is most concerned with her endurance and reports she has not fallen in over one year. She is always tired and has a lousy appetite. She is followed by a registered nurse maternity, is using a nutrition supplement, and is trying to eat more eggs for protein. She is using a 4WW for nearly all community mobility. At home, she uses no assistive device unless she is trying to carry items in which case she will use FWW with a tray attachment. She reports achey pain in her anterior thighs when she walks ; she has chronic back and neck pain. She underwent left mastectomy within the past year. She was not a candidate for adjuvant radiation due to pre-existing CREST syndrome and sceleroderma. She has a fib and is now on warfarin. She has renal failure and currently does peritoneal dialysis at home. Her daughter and daughter's have lived with her for >1 year. Pt currently manages all her ADL 's. Her daughter and son in law assist with IADL's. Daughter provides set up assist for peritoneal dialysis . Pt lives in single-level home with 4 PRASANTH and B rails. She has a hurrycane, 4WW, FWW, shower chair, lift recliner, flat bed with bed rails. Suction grab bars in shower. Prior Treatments and Tests Prior PT at this clinic for similar concerns Treatment Goals Patient/Caregiver Goals Stand long enough to bake. Energy enough to do laundry without assist. Increase endurance, strength, and balance Personal Factors Other Personal Factors That May Effect CREST syndrome, Raynaud's, Therapy/Recovery GERD, scleroderma, renal failure, osteoporosis, neck and back pain. PT-OP-C Subjective Start: 09/14/21 12:03 Freq: Status: Active Protocol: Document 01/12/22 10:30 DCW (Rec: 01/12/22 11:10 DCW [id number]) OP-PT Subjective Patient Comments Patient Comments Pt notes that she is very fatigued this morning, but took her BP at home, and it wasn't too bad. PT-OP-D Balance Start: 09/14/21 12:03 Freq: Status: Active Protocol: Document 09/21/21 14:30 AW (Rec: 09/21/21 16:06 AW [id number]) Balance Tests Romberg Romberg WNL EO; increased sway EC Tandem Tandem Standing unable PT-OP-E Functional Tests Start: 09/14/21 12:03 Freq: Status: Active Protocol: Document 09/21/21 14:30 AW (Rec: 09/21/21 16:06 AW [id number]) Functional Tests 2 Minute Walk Test Distance 380' in 3 minutes Device Used 4WW Comments 0.64 m/s average gait speed. 2 laps completed; 2nd lap took 3 more seconds PT-OP-G Mobility & Gait Start: 09/14/21 12:03 Freq: Status: Active Protocol: Document 09/21/21 14:30 AW (Rec: 09/21/21 16:06 AW [id number]) OP Mobility Evaluation Transfers Sit to Stand definite use of hands Bed to Chair Transfers SBA with increased time OP Gait Assessment Gait Gait Assistance Required: Standby Assistance Distance (Feet) 400 Assistive Devices Assistive Device Gait Belt,4 Wheeled Walker Gait Deviations General Gait Pattern Antalgic,Wide Based Gait Comments Gait Comments Pt uses 4WW to walk longer distances. She walks with bilateral hip external rotation, WBOS, and increased trunk flexion PT-OP-M Strength Start: 09/14/21 12:03 Freq: Status: Active Protocol: Document 09/21/21 14:30 AW (Rec: 09/21/21 16:06 AW [id number]) Hip Strength Hip Manual Muscle Testing Left Flexion (L2) 4 Good Extension (S1) 4- Good- Abduction 3+ Fair+ Right Flexion (L2) 4- Good- Extension (S1) 4- Good- Abduction 3 Fair Knee Strength Knee Manual Muscle Testing bilat Flexion (S2) 4- Good- Extension (L3) 4 Good Ankle/Foot Strength Ankle and Foot Manual Muscle Testing bilat Dorsiflexion (L4) 4 Good Plantarflexion (S1) 3+ Fair+ PT-OP-Q Treatments Start: 09/14/21 12:03 Freq: Status: Active Protocol: Document 01/12/22 10:30 DCW (Rec: 01/12/22 11:10 DCW [id number]) Cardio Equipment Recumbent Elliptical ([employer]) Duration (Minutes) 4 Resistance 4 Seat Position 8 Other UE and LE use; target 20-30 rpm Gym Equipment Shuttle Recovery Bilateral Squats Details cued knee alignment with toes and Tb around knees Resistance 50# Shuttle Recovery Platform Stable Reps/Time x20 Unilateral Squats Details cued knee alignment with toes see medial insole Resistance 25# Shuttle Recovery Platform Stable Reps/Time 2x10 B Therapeutic Exercises Other Exercises sit to stand Other Exercise Name sit to stand Equipment Used from chair Reps/Minutes 2x5 Comments primary limitation: back achy Gait Training Gait Activity Gait with RW Device Used 4WW Level of Assistance SBA Surface firm Distance/Duration 180 ft x 2 laps Treatment Focus endurance Comments Between sets of other exercises Neuro Re-Education Treatment Balance Activities SLS Details SLS Equipment // bars for prn support Reps/Duration 30 sec x6 step tap Details step tap, fwd, lateral Equipment 6 step Reps/Duration x12 BLE Comments 2 sets with seated break between PT-OP-T Assessment and Plan Start: 09/14/21 12:03 Freq: Status: Active Protocol: Document 01/12/22 10:30 DCW (Rec: 01/12/22 11:10 DCW [id number]) Physical Therapy Assessment Goals Three Impairment gait Short Term Goal (STG) Yanni will complete 6 minute walk test using 4WW with no rest breaks 10/18/21: PRogresssing: Pt completed 655ft in 6 min w/ 2 stand rest breaks approx 15 sec using 4WW. 11/03/21: STG Duration 5 weeks - 10/26/21- progressing Alf Goal (LTG) Yanni will improve 6MWT by 10% compared with performance on STG assessment LTG Duration 10 weeks - 01/26/22 Two Impairment strength Short Term Goal (STG) Yanni will improve her hip strength to 4/5 bilaterally to improve gait stability 10/20/21 - Goal progress: flexion 4-/5, abduction 4/5, aduction 4/5 STG Duration 5 weeks - 10/26/21 Electricity Trading Analyst Goal (LTG) Yanni will improve her lower extremity strength to be able to ascend and descend a set of stairs without hip drop. LTG Duration 10 weeks - 01/26/22 One Impairment balance Alf Goal (LTG) Pt will improve Carlin Balance Score from 40/56 to 46/56 points or greater as a measure of reduced falls risk LTG Duration 10 weeks - 01/26/22 Assessment Summary Assessment Pt very fatigued today, long rest breaks required after every activity. BP low, but not as low as it has been during past visits. Limited participation in therapy today . Physical Therapy Plan Frequency and Duration Frequency of Treatment 2x/Week Duration of Treatment 8 weeks Plan of Care Start Date 12/01/21 Plan of Care End Date 01/26/22 Therapeutic Interventions Therapeutic Interventions Balance Training,Gait Training ,Home Exercise Program, Neuromuscular Re-education, Therapeutic Activities, Therapeutic Exercises Next Visit Focus/Plan Next Note Type Treatment Note Next Visit Plan Assess vitals. Revisit sport cord. Progress aerobic conditioning, functional strength, and balance work.
--- NOTE | 2022-01-24 10:51 | PT-OP ANOTE ---
Pt called to cancel same day due to severe hypotension.
--- NOTE | 2022-01-26 17:11 | PT.OTN ---
Current Diagnoses Difficulty in walking, not elsewhere classified (01/26/22) Other abnormalities of gait and mobility (01/26/22) Physical Therapy Treatment Note PT-OP-A Visit Information Start: 09/14/21 12:03 Freq: Status: Active Protocol: Document 01/26/22 15:20 AW (Rec: 01/26/22 15:57 AW [id number]) Out-Patient Physical Therapy Visit Information Visit Information Visit Type Discharge Summary Visit Start Time 15:15 Visit Stop Time 16:00 Total Visit Minutes 45 Visit Number 22 Number of SHIFT SUPERINTENDENT Visits 0 Evaluation Information Evaluation Date 09/21/21 Precautions Precautions BP start of session BP after activity: 100/65. PT-OP-B Current Condition Start: 09/14/21 12:03 Freq: Status: Active Protocol: Document 09/21/21 14:30 AW (Rec: 09/14/21 12:45 AW [id number]) Current Condition History of Current Condition Onset Date years Current Complaints poor endurance, decreased balance, falls History of Current Condition Yanni is most concerned with her endurance and reports she has not fallen in over one year. She is always tired and has a lousy appetite. She is followed by a hospice registered nurse, is using a nutrition supplement, and is trying to eat more eggs for protein. She is using a 4WW for nearly all community mobility. At home, she uses no assistive device unless she is trying to carry items in which case she will use FWW with a tray attachment. She reports achey pain in her anterior thighs when she walks ; she has chronic back and neck pain. She underwent left mastectomy within the past year. She was not a candidate for adjuvant radiation due to pre-existing CREST syndrome and sceleroderma. She has a fib and is now on warfarin. She has renal failure and currently does peritoneal dialysis at home. Her daughter and daughter's have lived with her for >1 year. Pt currently manages all her ADL 's. Her daughter and son in law assist with IADL's. Daughter provides set up assist for peritoneal dialysis . Pt lives in single-level home with 4 PRASANTH and B rails. She has a hurrycane, 4WW, FWW, shower chair, lift recliner, flat bed with bed rails. Suction grab bars in shower. Prior Treatments and Tests Prior PT at this clinic for similar concerns Treatment Goals Patient/Caregiver Goals Stand long enough to bake. Energy enough to do laundry without assist. Increase endurance, strength, and balance Personal Factors Other Personal Factors That May Effect CREST syndrome, Raynaud's, Therapy/Recovery GERD, scleroderma, renal failure, osteoporosis, neck and back pain. PT-OP-C Subjective Start: 09/14/21 12:03 Freq: Status: Active Protocol: Document 01/26/22 15:20 AW (Rec: 01/26/22 15:57 AW [id number]) OP-PT Subjective Patient Comments Patient Comments Yanni is very fatigued today but willing to work with therapy. PT-OP-D Balance Start: 09/14/21 12:03 Freq: Status: Active Protocol: Document 09/21/21 14:30 AW (Rec: 09/21/21 16:06 AW [id number]) Balance Tests Romberg Romberg WNL EO; increased sway EC Tandem Tandem Standing unable PT-OP-E Functional Tests Start: 09/14/21 12:03 Freq: Status: Active Protocol: Document 09/21/21 14:30 AW (Rec: 09/21/21 16:06 AW [id number]) Functional Tests 2 Minute Walk Test Distance 380' in 3 minutes Device Used 4WW Comments 0.64 m/s average gait speed. 2 laps completed; 2nd lap took 3 more seconds PT-OP-G Mobility & Gait Start: 09/14/21 12:03 Freq: Status: Active Protocol: Document 09/21/21 14:30 AW (Rec: 09/21/21 16:06 AW [id number]) OP Mobility Evaluation Transfers Sit to Stand definite use of hands Bed to Chair Transfers SBA with increased time OP Gait Assessment Gait Gait Assistance Required: Standby Assistance Distance (Feet) 400 Assistive Devices Assistive Device Gait Belt,4 Wheeled Walker Gait Deviations General Gait Pattern Antalgic,Wide Based Gait Comments Gait Comments Pt uses 4WW to walk longer distances. She walks with bilateral hip external rotation, WBOS, and increased trunk flexion PT-OP-M Strength Start: 09/14/21 12:03 Freq: Status: Active Protocol: Document 09/21/21 14:30 AW (Rec: 09/21/21 16:06 AW [id number]) Hip Strength Hip Manual Muscle Testing Left Flexion (L2) 4 Good Extension (S1) 4- Good- Abduction 3+ Fair+ Right Flexion (L2) 4- Good- Extension (S1) 4- Good- Abduction 3 Fair Knee Strength Knee Manual Muscle Testing bilat Flexion (S2) 4- Good- Extension (L3) 4 Good Ankle/Foot Strength Ankle and Foot Manual Muscle Testing bilat Dorsiflexion (L4) 4 Good Plantarflexion (S1) 3+ Fair+ PT-OP-Q Treatments Start: 09/14/21 12:03 Freq: Status: Active Protocol: Document 01/26/22 15:20 AW (Rec: 01/26/22 15:57 AW [id number]) Cardio Equipment Recumbent Elliptical (Biodex) Duration (Minutes) 5 Resistance 4 Seat Position 8 Other UE and LE use; target 20-30 rpm Therapeutic Exercises Standing Exercises step up Standing Exercise Name fwd, lateral with unilat rail support Side bilateral Equipment Used 6 step x 4 Reps/Minutes step over step fwd; step to lateral Comments seated rest after 4 steps x 2 Other Exercises sit to stand Other Exercise Name sit to stand Equipment Used from FWW stabilized at wall Reps/Minutes 2x8 Comments primary limitation: back achy Gait Training Gait Activity Gait with RW Device Used 4WW Level of Assistance SBA Surface firm Distance/Duration 180 ft x 2 laps Treatment Focus endurance Comments Between sets of other exercises Neuro Re-Education Treatment Balance Activities SLS Details SLS - modified with dynadisc Equipment 4WW for prn support Reps/Duration 30 sec x 6 step tap Details step tap, fwd, lateral Equipment 6 step Reps/Duration x12 BLE Comments 2 sets with seated break between backward walking Details forward/ backward walking Surface firm Equipment // contact with LUE Reps/Duration 30 ft lap x2 reps before seated rest Comments cued slow back stepping, increase SAIDA, core walk as though book on head, decreased lateral wt shifting back stepping uneven surface Surface blue foam Comments - WBOS - EO with head turns and nods near // but pt only contacts intermittently PT-OP-T Assessment and Plan Start: 09/14/21 12:03 Freq: Status: Active Protocol: Document 01/26/22 15:20 AW (Rec: 01/26/22 15:57 AW [id number]) Physical Therapy Assessment Goals Three Impairment gait Short Term Goal (STG) Yanni will complete 6 minute walk test using 4WW with no rest breaks 2/22/22: PRogresssing: Pt completed 655ft in 6 min w/ 2 stand rest breaks approx 15 sec using 4WW. 11/03/21: STG Duration 5 weeks - 10/26/21- progressing Shelter Goal (LTG) Yanni will improve 6MWT by 10% compared with performance on STG assessment Unable to complete LTG Duration 10 weeks - 01/26/22 Two Impairment strength Short Term Goal (STG) Yanni will improve her hip strength to 4/5 bilaterally to improve gait stability 10/20/21 - Goal progress: flexion 4-/5, abduction 4/5, aduction 4/5 STG Duration 5 weeks - 10/26/21 Shelter Goal (LTG) Yanni will improve her lower extremity strength to be able to ascend and descend a set of stairs without hip drop. 01/26/22 - Continues to demonstrate significant hip drop on stairs LTG Duration 10 weeks - 01/26/22 One Impairment balance Data Solutions Architect Goal (LTG) Pt will improve Carlin Balance Score from 40/56 to 46/56 points or greater as a measure of reduced falls risk 01/26/22 - No change LTG Duration 10 weeks - 01/26/22 Assessment Summary Assessment Yanni continues to be limited by extreme fatigue and presents with some signs of depression. Encouraged pt to limit sedentary behaviors and continue to work laps around her house into her daily routine. Pt requests discharge . PT encouraged pt to reach out to her PCP for possible referral to home health PT. Physical Therapy Plan Discharge Physical Therapy Discharge Reasons Patient Request Discharge Comments Pt has not significantly improved her balance or endurance which has, in fact, taken a turn for the worse over the past few months. PT recommends home health therapy to improve salience and reduce the burden of leaving the house for therapy appointments.
== END 2022-01-27 13:59 ==
LOC: PHYS 15:15
PROVIDERS: Family Provider Family Medicine; PCP Family Medicine; Referring Provider Family Medicine; Visit Provider Family Medicine
DX: R26.89 Other abnormalities of gait and mobility (principal); R26.2 Difficulty in walking, not elsewhere classified
CPT/HCPCS: 97110; 97112; 97116; 97162; 97530; 97535

== ENCOUNTER 2022-02-21 13:28 | Emergency (ER) | payer MEDICARE, OTHER, SELFPAY ==
[2021-08-04 14:29] VITALS: BMI 21.7
[2022-02-21 13:35] VITALS: BP 131/62
[2022-02-21 13:38] VITALS: PULSE 74
[2022-02-21 13:47] VITALS: BP 131/62; PULSE 71; RESP 18; TEMP 36.5; O2SAT 97; BMI 22.1
--- NOTE | 2022-02-21 13:53 | ED.FALL ---
HPI - Fall <Walter Lucia PA-C - Last Filed: 02/21/22 15:35> General Chief Complaint: Fall Stated Complaint: Fall 6 days ago- pain, fatigue- on thinners Time Seen by Provider: 02/21/22 13:38 History of Present Illness HPI Narrative: Patient is a 81-year-old female presents to the ED complaining of pain along the right side of her chest and abdomen. She states that 5 days ago she was walking and tripped over her dialysis machine cord in the middle of her house. She said she fell forward she did hit her head it did cause some bruising and some minor bleeding. Over the course of the next few days she had increased pain along her right chest and right abdomen. Patient has also developed a ongoing nonproductive dry cough that she states is worse at night. No reported loss of consciousness no reported headache nausea vomiting diarrhea vision changes. No reported confusion. Patient denies any bruising. Patient denies any chest pain or shortness of breath. No reported fever. She is current on her COVID vaccine. She did test herself for COVID couple of days ago and it was tested negative. Related Data Home Medications Medication Instructions Recorded Confirmed acetaminophen 325 mg tablet 325 mg PO Q4H PRN PAIN OR FEVER 06/10/19 02/21/22 diphenhydramine HCl 25 mg capsule 25 mg PO PRN PRN Allergy Symptoms 06/10/19 02/21/22 B complex-vitamin C-folic acid 1 tab PO DAILY 01/05/21 02/21/22 [Dialyvite] Probiotic 1 cap PO BID 01/05/21 02/21/22 lansoprazole 15 mg capsule,delayed 15 mg PO BID 01/05/21 02/21/22 release (Prevacid) sennosides 8.6 mg tablet (senna) 8.6 mg PO BID 01/05/21 02/21/22 allopurinol 100 mg tablet 100 mg DAILY 06/14/21 02/21/22 sevelamer HCl 800 mg tablet 800 mg PO TID 06/14/21 02/21/22 Previous Rx's Medication Instructions Recorded ondansetron 4 mg disintegrating 4 mg PO Q8H PRN nausea and 11/23/20 tablet vomiting #30 tabs alprazolam 0.25 mg tablet See Rx Instructions .Route 07/07/21 .COMPLEX #60 tabs sildenafil (pulm.hypertension) 20 20 mg PO TID #270 tabs 08/15/21 mg tablet nifedipine 90 mg tablet,extended 90 mg PO QPM #90 tabs 10/11/21 release 24 hr pentoxifylline 400 mg See Rx Instructions .Route 11/03/21 tablet,extended release .COMPLEX #270 tabs metoprolol tartrate 25 mg tablet See Rx Instructions .Route 01/09/22 .COMPLEX #180 tabs warfarin 1 mg tablet See Rx Instructions .Route 02/09/22 .COMPLEX #135 tabs atorvastatin 10 mg tablet 10 mg PO BEDTIME #90 tabs 02/14/22 potassium chloride 20 mEq 20 meq PO BID #6 tabs 02/21/22 tablet,extended release Allergies Allergy/AdvReac Type Severity Reaction Status Date / Time carrot [CARROT] Allergy Severe EYES SWELL Verified 02/21/22 13:20 clindamycin [CLINDAMYCIN] AdvReac Severe DIARRHEA Verified 02/21/22 13:20 doxycycline AdvReac Severe Made her Verified 02/21/22 13:20 very nauseous/affected appetite Review of Systems <Walter Lucia PA-C - Last Filed: 02/21/22 15:35> Review of Systems ROS Unobtainable: All systems reviewed & are unremarkable except as noted in HPI and below Constitutional Constitutional: Denies chills, Denies fatigue, Denies fever(s), Denies frequent falls, Denies lethargy and Denies weakness Eyes Eyes: Denies change in vision, Denies eye discharge, Denies irritation and Denies loss of vision ENT Ears, Nose, Mouth, and Throat: Denies change in voice, Denies dizziness, Denies neck pain, Denies sore throat and Denies throat swelling Cardiovascular Cardiovascular: Denies chest pain, Denies irregular heart rhythm, Denies lightheadedness, Denies palpitations, Denies dyspnea, Denies dyspnea on exertion and Denies orthopnea Respiratory Respiratory: Denies cough, Denies dyspnea, Denies dyspnea on exertion and Denies wheezing Gastrointestinal Gastrointestinal: Denies abdominal pain, Denies change in bowel habits, Denies diarrhea, Denies nausea and Denies vomiting Genitourinary Genitourinary: Denies hematuria, Denies flank pain, Denies urinary incontinence and Denies urinary urgency Musculoskeletal Musculoskeletal: Reports system reviewed and no additional complaints, except as documented, Reports arthralgias, Denies back pain, Denies muscle weakness, Denies neck pain, Denies numbness and Denies tingling Integumentary/Breasts Skin/Breast: Denies pruritus, Denies erythema, Denies rash and Denies wounds Neurologic Neurologic: Denies behavioral changes, Denies confusion, Denies dizziness, Denies frequent falls, Denies loss of vision, Denies numbness, Denies tingling and Denies weakness Psychiatric Psychiatric: Denies anxiety, Denies behavioral changes, Denies confusion, Denies depression, Denies homicidal ideation and Denies suicidal ideation Endocrine Endocrine: Denies fatigue, Denies flushing and Denies palpitations Hematologic/Lymphatic Hematologic/Lymphatic: Denies easy bruising Allergic/Immunologic Allergic/Immunologic: Denies urticaria, Denies throat swelling and Denies wheezing Patient History <Walter Lucia PA-C - Last Filed: 02/21/22 15:35> Medical History Anxiety about health Back stiffness Balance problem Breast cancer in female Cervical somatic dysfunction Chronic nausea Chronic neck pain CKD (chronic kidney disease) (Unknown) Constipation Cranial somatic dysfunction CREST syndrome (Unknown) End stage renal failure on dialysis GERD (gastroesophageal reflux disease) (Unknown) Gout Hiatal hernia with gastroesophageal reflux disease and esophagitis Hyperkalemia Hyperlipemia (Unknown) Hypertension (Unknown) Localized swelling of left forearm Nausea with vomiting Osteopenia (~04/2016) Osteoporosis (~04/2016) Pain of left great toe Raynaud's disease (Unknown) Segmental and somatic dysfunction of abdomen and other regions Segmental and somatic dysfunction of abdomen and other regions Segmental and somatic dysfunction of pelvic region Segmental and somatic dysfunction of rib cage Segmental and somatic dysfunction of sacral region Segmental and somatic dysfunction of thoracic region Somatic dysfunction of right lower extremity Upper extremity somatic dysfunction Warfarin anticoagulation Surgical History History of cataract removal with insertion of prosthetic lens History of rectal surgery Status post breast biopsy Status post hysterectomy Status post tonsillectomy and adenoidectomy Family History Father Congestive heart failure Hypertension Mother Myocardial infarction Social History household members: children Smoking Status: Never smoker alcohol intake: current Smoking Status: Never smoker alcohol intake frequency: holidays/special occasions only Substance Use Type: does not use Exam <Walter Lucia PA-C - Last Filed: 02/21/22 15:35> Initial Vital Signs Initial Vital Signs: Vital Signs Blood Pressure 131/62 02/21/22 13:35 Const General: cooperative, healthy appearing, comfortable and well developed Nutritional Appearance: average body habitus HENOK Head: normal to inspection, normocephalic and abrasion (Right forehead) Ears: hearing grossly normal bilaterally and external ears normal Nose: external nose normal and nares normal Face and sinus: normal facial exam Mouth: oral mucosae normal Chest Chest: normal inspection of the chest, localized rib tenderness with anteroposterior compression and tenderness Resp Effort & Inspection: normal respiratory effort and able to speak in complete sentences Auscultation: clear to auscultation bilaterally Percussion: percussion normal GI Inspection: normal to inspection Palpation: soft and no hepatosplenomegaly Percussion: normal to percussion Auscultation: normal bowel sounds Neuro General: patient alert, patient awake, patient oriented x3, gait normal, tone normal, moves all extremities, no meningeal signs, no focal motor deficits and CN's II-XI intact bilaterally <DO Reyna Luo Last Filed: 02/22/22 09:24> Initial Vital Signs Initial Vital Signs: Vital Signs Blood Pressure 131/62 02/21/22 13:35 Course <Walter Lucia PA-C - Last Filed: 02/21/22 15:35> Orders Ordered: Discontinued Medications Potassium Chloride (Potassium Chloride 20 Meq/15 Ml Udc) 40 meq PO NOW ONE Stop: 02/21/22 15:20 Last Admin: 02/21/22 15:30 Dose: 40 meq Documented By: ROEL Vital Signs Vital signs: Vital Signs - 8 hr 02/21/22 13:47 02/21/22 13:35 02/21/22 13:38 Temperature 97.7 F Pulse Rate 71 74 Respiratory Rate 18 Blood Pressure 131/62 131/62 Pulse Oximetry 97 Oxygen Delivery Method Room Air 02/21/22 14:00 Temperature Pulse Rate 71 Respiratory Rate Blood Pressure Pulse Oximetry 94 Oxygen Delivery Method <DO Reyna Luo Filed: 02/22/22 09:24> Orders Ordered: Discontinued Medications Potassium Chloride (Potassium Chloride 20 Meq/15 Ml Udc) 40 meq PO NOW ONE Stop: 02/21/22 15:20 Last Admin: 02/21/22 15:30 Dose: 40 meq Documented By: ROEL Vital Signs Vital signs: Vital Signs - 8 hr 02/21/22 13:47 02/21/22 13:35 02/21/22 13:38 Temperature 97.7 F Pulse Rate 71 74 Respiratory Rate 18 Blood Pressure 131/62 131/62 Pulse Oximetry 97 Oxygen Delivery Method Room Air 02/21/22 14:00 Temperature Pulse Rate 71 Respiratory Rate Blood Pressure Pulse Oximetry 94 Oxygen Delivery Method MDM - Fall <Walter Lucia PA-C - Last Filed: 02/21/22 15:35> Lab Data Result diagrams: 02/21/22 14:20 02/21/22 14:20 Labs: Lab Results 02/21/22 02/21/22 Range/Units 14:20 14:20 WBC 10.8 (4.5-11.0) X10^3/uL RBC 2.76 L (4.0-5.2) X10^6/uL Hgb 9.2 L (12.0-16.0) g/dL Hct 27.1 L (36-46) % MCV 98.1 (80-100) fL MCH 33.4 (26-34) PG MCHC 34.1 (30-36) % RDW 16.1 H (11.6-14.8) % Plt Count 244 (150-400) X10^3/uL Neut % (Auto) 82.7 H (50-75) % Lymph % (Auto) 6.8 L (25-40) % [place] % (Auto) 7.1 (3-14) % Eos % (Auto) 3.0 (2-4) % Baso % (Auto) 0.4 (0-2) % Neut # (Auto) 8900 H (5865-5555) /uL Lymph # (Auto) 700 L (5528-9671) /uL [place] # (Auto) 800 (0-900) /uL Eos # (Auto) 300 (0-450) /uL Baso # (Auto) 0 (0-100) /uL Sodium 134 L (137-145) mmol/L Potassium 2.5 L* (3.4-5.1) mmol/L Chloride 98 (98-107) mmol/L Carbon Dioxide 26 (22-32) mmol/L BUN 39 H (7-17) mg/dL Creatinine 3.44 H (0.52-1.04) mg/dL Estimated GFR 13 L (>60) mL/min BUN/Creatinine Ratio 11.3 (6-22) Glucose 103 (80-110) mg/dL Calcium 8.1 L (8.4-10.2) mg/dL Total Bilirubin 0.3 (0.2-1.3) mg/dL AST 24 (14-36) IU/L ALT 13 (<35) IU/L Alkaline Phosphatase 107 (38-126) U/L Total Protein 5.1 L (6.3-8.2) g/dL Albumin 2.6 L (3.5-5.0) g/dL Globulin 2.5 (1.7-4.1) g/dL Albumin/Globulin Ratio 1.0 (1.0-2.8) Imaging Data CT scan - abdomen/pelvis: Radiologist's Impression: [place] [address] CT Scan Report Signed Patient: Yanni Maurice MR#: [id number] : 1940 Acct:[id number] Age/Sex: 81 / F Date of Service: 02/21/22 Loc: ED Accession Number: [id number] ?? Procedure: CT chest abd pel wo con Ordering Provider: Walter Lucia P.A-C PROCEDURE:? CT CHEST ABD PEL WO CON ? INDICATIONS:? Fall - Right upper abdominal pain ? TECHNIQUE:? After the administration of oral contrast, 5 mm thick sections acquired from the lung apices to the symphysis pubis.? 5 mm thick coronal and sagittal reformats acquired, with additional 7 mm coronal MIP reformats through the lungs.? For radiation dose reduction, the following was used:? automated exposure control, adjustment of mA and/or kV according to patient size.? ? COMPARISON:? [facility], CT, CT CHEST ABDOMEN PELVIS WITHOUT CONTRAST, 08/08/2020, 17:07.? [facility], CT, CT CHEST ABD PEL W CON, 01/26/2022, 11:37. ? FINDINGS:? Image quality:? Excellent.? ? CHEST:? Lungs and pleura:? There is mild peripheral interlobular septal thickening suggesting pulmonary edema.? There are small low-density pleural effusions and some pleural fluid tracking along the left oblique fissure.? Patchy airspace opacities are present at the lingular base which are new when compared with the study dated January 26, 2022. There is a 1.0 cm right upper lobe pulmonary nodule which measured 9 mm in diameter on the study dated January 26, 2022. 4 mm pleural based left upper lobe nodule is unchanged (series 3/image 134).? ? Mediastinum:? The heart is mildly enlarged.? There is mitral annular calcification.? No pericardial effusion.? Dense atheromatous calcifications are present throughout the thoracic aorta.? The esophagus is patulous and filled with debris.? No mediastinal or hilar adenopathy. ? Chest wall:? No axillary or supraclavicular adenopathy by size criteria.? Thyroid gland is unremarkable.? No displaced rib fractures visualized. ? ABDOMEN:? Solid organs:? Liver is normal in size.? Gallbladder is surgically absent .? Pancreas is normal in contours.? The cystic lesions within the pancreas are poorly characterized in the absence of IV contrast.? Spleen is normal in size.? No adrenal nodules.? Both kidneys are normal in size, without hydronephrosis or nephrolithiasis.? Exophytic low-density cysts are visualized bilaterally. ? Peritoneum and bowel:? Small and large bowel loops are normal in caliber and wall thickness.? Inspissated appearing oral contrast is present throughout the colon.? Trace low-density free fluid surrounds the liver and spleen.? There is a small amount of low-density free pelvic fluid.? A peritoneal dialysis catheter is present with the tip in the right hemipelvis. ? Nodes and vessels:? No retroperitoneal or mesenteric adenopathy by size criteria.? Aorta and inferior vena cava are normal in size. There are dense atheromatous calcifications throughout the aorta and iliac arteries bilaterally. ? Miscellaneous:? No ventral hernias.? ? ? PELVIS:? Genitourinary:? Bladder wall thickness is normal.? ? Miscellaneous:? No inguinal hernias or adenopathy.? ? Bones:? No suspicious bony lesions.? Postoperative and degenerative changes are present within the lumbar spine.? No vertebral body compression fractures.? ? IMPRESSION:? ? 1. No findings to suggest acute thoracic or abdominal pelvic trauma.? The fluid surrounding the liver and spleen and within the pelvis is low-density in nature and likely reflex peritoneal dialysis. ? 2. Increased bilateral pleural effusions and pulmonary edema when compared with the study dated January 26, 2022. ? 3. Patulous debris-filled esophagus. ? 4.? Slight increase in the size of the right pulmonary nodule which may represent pulmonary metastasis.? Continued surveillance recommended.? ? Dictated by: Shanda Choe M.D. on 02/21/2022 at 14:54 ? ? Approved by: Shanda Choe M.D. on 02/21/2022 at 15:07?? MDM Narrative Medical decision making narrative: Patient was seen today for pain on the right chest and abdomen. CT scan chest abdomen pelvis does not show any evidence of any fractures. Labs today did show hypokalemia and I prescribed p.o. potassium once while in the ER and then sent a prescription for the next 3 days 20 mEq b.i.d.. Patient will be discharged home. <Veronica Billings, DO - Last Filed: 02/22/22 09:24> Lab Data Labs: Lab Results 02/21/22 02/21/22 Range/Units 14:20 14:20 WBC 10.8 (4.5-11.0) X10^3/uL RBC 2.76 L (4.0-5.2) X10^6/uL Hgb 9.2 L (12.0-16.0) g/dL Hct 27.1 L (36-46) % MCV 98.1 (80-100) fL MCH 33.4 (26-34) PG MCHC 34.1 (30-36) % RDW 16.1 H (11.6-14.8) % Plt Count 244 (150-400) X10^3/uL Neut % (Auto) 82.7 H (50-75) % Lymph % (Auto) 6.8 L (25-40) % [place] % (Auto) 7.1 (3-14) % Eos % (Auto) 3.0 (2-4) % Baso % (Auto) 0.4 (0-2) % Neut # (Auto) 8900 H (8311-7985) /uL Lymph # (Auto) 700 L (2032-9006) /uL [place] # (Auto) 800 (0-900) /uL Eos # (Auto) 300 (0-450) /uL Baso # (Auto) 0 (0-100) /uL Sodium 134 L (137-145) mmol/L Potassium 2.5 L* (3.4-5.1) mmol/L Chloride 98 (98-107) mmol/L Carbon Dioxide 26 (22-32) mmol/L BUN 39 H (7-17) mg/dL Creatinine 3.44 H (0.52-1.04) mg/dL Estimated GFR 13 L (>60) mL/min BUN/Creatinine Ratio 11.3 (6-22) Glucose 103 (80-110) mg/dL Calcium 8.1 L (8.4-10.2) mg/dL Total Bilirubin 0.3 (0.2-1.3) mg/dL AST 24 (14-36) IU/L ALT 13 (<35) IU/L Alkaline Phosphatase 107 (38-126) U/L Total Protein 5.1 L (6.3-8.2) g/dL Albumin 2.6 L (3.5-5.0) g/dL Globulin 2.5 (1.7-4.1) g/dL Albumin/Globulin Ratio 1.0 (1.0-2.8) Discharge Plan Departure Patient Disposition: Home Clinical Impression: Fall, Right sided abdominal pain, Hypokalemia Instructions: DI for Abdominal Pain-Adult, DI for Hypokalemia, How to Prevent Falls Activity Restrictions/Additional Instructions: Your CT scan today did not show any evidence of any fracture. However your potassium is significantly low and as a result I sent a prescription over to your pharmacy for a 3 day prescription of potassium. Please take him twice a day until gone. Thank you for the opportunity to care for you today. Prescriptions: New potassium chloride 20 mEq tablet extended release 20 meq PO BID Qty: 6 0RF No Action alprazolam 0.25 mg tablet See Rx Instructions .ROUTE .COMPLEX Qty: 60 0RF Rx Instructions: Take 1/2 to 1 tablet by mouth 2 times daily as needed for anxiety sildenafil (pulm.hypertension) 20 mg tablet 20 mg PO TID Qty: 270 3RF nifedipine 90 mg tablet extended release 24hr 90 mg PO QPM Qty: 90 3RF pentoxifylline 400 mg tablet extended release See Rx Instructions .ROUTE .COMPLEX Qty: 270 0RF Dose Instruction: take 1 tablet by mouth three times a day Rx Instructions: take 1 tablet by mouth three times a day metoprolol tartrate 25 mg tablet See Rx Instructions .ROUTE .COMPLEX Qty: 180 0RF Dose Instruction: take 1 tablet by mouth twice a day Rx Instructions: take 1 tablet by mouth twice a day warfarin 1 mg tablet See Rx Instructions .ROUTE .COMPLEX Qty: 135 3RF Dose Instruction: take 1 AND 1/2 tablet by mouth once daily Rx Instructions: take 1.5mg by mouth once daily atorvastatin 10 mg tablet 10 mg PO BEDTIME Qty: 90 3RF ondansetron 4 mg tablet,disintegrating 4 mg PO Q8H PRN (Reason: nausea and vomiting) Qty: 30 3RF lansoprazole [Prevacid] 15 mg capsule,delayed release(DR/EC) 15 mg PO BID sennosides [senna] 8.6 mg tablet 8.6 mg PO BID B complex-vitamin C-folic acid 1 tab PO DAILY Probiotic 1 cap PO BID acetaminophen 325 mg Tablet 325 mg PO Q4H PRN (Reason: PAIN OR FEVER) diphenhydramine HCl 25 mg Capsule 25 mg PO PRN PRN (Reason: Allergy Symptoms) sevelamer HCl 800 mg Tablet 800 mg PO TID allopurinol 100 mg Tablet 100 mg DAILY Referrals: Todd Lanza DO [Primary Care Provider] - Visit Report Forms: Patient Portal/API <Veronica Billings DO - Last Filed: 02/22/22 09:24> Cosign ED Attending [place] Attestation: I was immediately available in the department for consultation. Documentation has been reviewed. I agree with assessment and plan.
[2022-02-21 14:00] VITALS: PULSE 71; O2SAT 94
--- NOTE | 2022-02-21 14:20 | DI.CT.S_ITS ---
PROCEDURE: CT CHEST ABD PEL WO CON INDICATIONS: Fall - Right upper abdominal pain TECHNIQUE: After the administration of oral contrast, 5 mm thick sections acquired from the lung apices to the symphysis pubis. 5 mm thick coronal and sagittal reformats acquired, with additional 7 mm coronal MIP reformats through the lungs. For radiation dose reduction, the following was used: automated exposure control, adjustment of mA and/or kV according to patient size. COMPARISON: [facility], CT, CT CHEST ABDOMEN PELVIS WITHOUT CONTRAST, 08/08/2020, 17:07. [facility], CT, CT CHEST ABD PEL W CON, 01/26/2022, 11:37. FINDINGS: Image quality: Excellent. CHEST: Lungs and pleura: There is mild peripheral interlobular septal thickening suggesting pulmonary edema. There are small low-density pleural effusions and some pleural fluid tracking along the left oblique fissure. Patchy airspace opacities are present at the lingular base which are new when compared with the study dated January 26, 2022. There is a 1.0 cm right upper lobe pulmonary nodule which measured 9 mm in diameter on the study dated January 26, 2022. 4 mm pleural based left upper lobe nodule is unchanged (series 3/image 134). Mediastinum: The heart is mildly enlarged. There is mitral annular calcification. No pericardial effusion. Dense atheromatous calcifications are present throughout the thoracic aorta. The esophagus is patulous and filled with debris. No mediastinal or hilar adenopathy. Chest wall: No axillary or supraclavicular adenopathy by size criteria. Thyroid gland is unremarkable. No displaced rib fractures visualized. ABDOMEN: Solid organs: Liver is normal in size. Gallbladder is surgically absent . Pancreas is normal in contours. The cystic lesions within the pancreas are poorly characterized in the absence of IV contrast. Spleen is normal in size. No adrenal nodules. Both kidneys are normal in size, without hydronephrosis or nephrolithiasis. Exophytic low-density cysts are visualized bilaterally. Peritoneum and bowel: Small and large bowel loops are normal in caliber and wall thickness. Inspissated appearing oral contrast is present throughout the colon. Trace low-density free fluid surrounds the liver and spleen. There is a small amount of low-density free pelvic fluid. A peritoneal dialysis catheter is present with the tip in the right hemipelvis. Nodes and vessels: No retroperitoneal or mesenteric adenopathy by size criteria. Aorta and inferior vena cava are normal in size. There are dense atheromatous calcifications throughout the aorta and iliac arteries bilaterally. Miscellaneous: No ventral hernias. PELVIS: Genitourinary: Bladder wall thickness is normal. Miscellaneous: No inguinal hernias or adenopathy. Bones: No suspicious bony lesions. Postoperative and degenerative changes are present within the lumbar spine. No vertebral body compression fractures. IMPRESSION: 1. No findings to suggest acute thoracic or abdominal pelvic trauma. The fluid surrounding the liver and spleen and within the pelvis is low-density in nature and likely reflex peritoneal dialysis. 2. Increased bilateral pleural effusions and pulmonary edema when compared with the study dated January 26, 2022. 3. Patulous debris-filled esophagus. 4. Slight increase in the size of the right pulmonary nodule which may represent pulmonary metastasis. Continued surveillance recommended. Dictated by: Shanda Choe M.D. on 02/21/2022 at 14:54 Approved by: Shanda Choe M.D. on 02/21/2022 at 15:07
[2022-02-21 14:30] VITALS: BP 128/76; PULSE 67; RESP 16; O2SAT 95
[2022-02-21 14:38] LABS: Add Manual Diff / Slide Review NO; Basophils Absolute Auto 0 /uL (0-100); Basophils Percent Auto 0.4 % (0-2); Eosinophils Absolute Auto 300 /uL (0-450); Hematocrit 27.1 % (36-46); Hemoglobin 9.2 g/dL (12.0-16.0); Lymphocytes Absolute Auto 700 /uL (1100-4500); Lymphocytes Percent Auto 6.8 % (25-40); Mean Corpuscular HGB Conc 34.1 % (30-36); Mean Corpuscular Hemoglobin 33.4 PG (26-34); Mean Corpuscular Volume 98.1 fL (80-100); Monocytes Absolute Auto 800 /uL (0-900); Monocytes Percent Auto 7.1 % (3-14); Neutrophils Absolute Auto 8900 /uL (1500-7000); Neutrophils Percent Auto 82.7 % (50-75); Platelet Count 244 X10^3/uL (150-400); Red Blood Cell Count 2.76 X10^6/uL (4.0-5.2); Red Cell Distribution Width 16.1 % (11.6-14.8); White Blood Cell Count 10.8 X10^3/uL (4.5-11.0)
[2022-02-21 15:02] LABS: Alanine Aminotransferase 13 IU/L (<35); Albumin 2.6 g/dL (3.5-5.0); Alkaline Phosphatase 107 U/L (38-126); Aspartate Aminotransferase 24 IU/L (14-36); BUN Creatinine Ratio 11.3 (6-22); Bilirubin Total 0.3 mg/dL (0.2-1.3); Blood Urea Nitrogen 39 mg/dL (7-17); Calcium 8.1 mg/dL (8.4-10.2); Carbon Dioxide 26 mmol/L (22-32); Chloride 98 mmol/L (98-107); Estimated Glomerular Filt Rate 13 mL/min (>60); Globulin 2.5 g/dL (1.7-4.1); Glucose 103 mg/dL (80-110); HEMOLYSIS < 15 (0-50); Sodium 134 mmol/L (137-145); Total Protein 5.1 g/dL (6.3-8.2)
[2022-02-21 15:13] LABS: Potassium 2.5 mmol/L (3.4-5.1)
[2022-02-21] MEDS: POTASSIUM CHLORIDE 20 MEQ/15 ML UDC 40 MEQ PO (15:30)
== END 2022-02-21 15:35 | disposition home or self-care (01) ==
PROVIDERS: Emergency Provider Physician Assistant; Family Provider Family Medicine; PCP Family Medicine
DX: R10.9 Unspecified abdominal pain (principal); E87.6 Hypokalemia; S09.90XA Unspecified injury of head, initial encounter; W19.XXXA Unspecified fall, initial encounter
CPT/HCPCS: 36415; 71250; 74176; 80053; 85025; 99283; 99284

== ENCOUNTER → 2022-05-23 13:26 | Outpatient (CLI) | payer MEDICARE, OTHER, SELFPAY ==
[2021-08-04 14:29] VITALS: BMI 21.7
--- NOTE | 2022-05-23 13:29 | DI.MG.S_ITS ---
UNILATERAL RIGHT DIGITAL DIAGNOSTIC MAMMOGRAM 3D/2D: 05/23/2022 CLINICAL: Right mammogram post left mastectomy. Comparison is made to exams dated: 05/26/2021 mammogram, 05/09/2021 mammogram, 12/04/2014 mammogram, and 11/18/2013 mammogram - [facility]. There are scattered areas of fibroglandular density in the right breast (category b / 25%-50% glandular tissue). There are benign vascular calcifications in the right breast. No significant masses, calcifications, or other findings are seen in the breast. There has been no significant interval change. IMPRESSION: BENIGN There is no mammographic evidence of malignancy. A 1 year screening mammogram is recommended. This exam was interpreted at Station ID: [id number]. NOTE: For mammograms, a report in lay terms will be sent to the patient. Approximately 15% of breast malignancies will not be visualized mammographically. In the management of a palpable breast mass, a negative mammogram must not discourage biopsy of a clinically suspicious lesion. Electronically Signed By: Fritz topete/ridge:05/23/2022 14:00:06 letter sent: Normal Exam ACR BI-RADS Category 2: Benign Finding(s) [id number]
== END ==
PROVIDERS: Family Provider Family Medicine; PCP Family Medicine; Referring Provider Family Medicine; Visit Provider Family Medicine
DX: R92.8 Other abnormal and inconclusive findings on diagnostic imaging of breast (principal); C50.412 Malignant neoplasm of upper-outer quadrant of left female breast; Z17.1 Estrogen receptor negative status [ER-]; Z90.12 Acquired absence of left breast and nipple
CPT/HCPCS: 77065; G0279

== ENCOUNTER → 2022-07-31 10:27 | Outpatient (CLI) | payer MEDICARE, OTHER, SELFPAY ==
[2021-08-04 14:29] VITALS: BMI 21.7
--- NOTE | 2022-07-31 10:28 | DI.CT.S_ITS ---
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 1 mm lung window, 5 mm thick coronal and sagittal and 7 mm axial MIP reformats were then acquired. For radiation dose reduction, the following was used: automated exposure control, adjustment of mA and/or kV according to patient size. COMPARISON: [facility], CT, CT CHEST ABD PEL WO CON, 02/21/2022, 14:32. FINDINGS: Image quality: Excellent. Lungs and pleura: Index pulmonary nodules are as follows (all described utilizing series 3) 1. Anterior right upper lobe multilobulated nodule, current image 133, previously 0.9 cm, now 1.9 x 1.8 cm. 2. Pleural based pulmonary nodule, left upper lobe, stable, 4 mm, current image 130/3. 3. Small pleural based nodule, left lower lobe, image 174, previously had by minimal pleural fluid. No acute air space opacities. No pleural effusions or pneumothorax. Central and peripheral airways are patent and normal in caliber. Mediastinum: Mild cardiomegaly. No pericardial effusion. Severe coronary artery calcifications. No mediastinal adenopathy by size criteria. Thoracic aorta and central pulmonary arteries are normal in size. Again noted is a very patulous esophagus filled with debris. Bones and chest wall: No suspicious bony lesions. No vertebral body compression fractures. No axillary or supraclavicular adenopathy by size criteria. Thyroid gland is unremarkable . Left breast is surgically absent. Abdomen: Visualized upper abdominal solid organs and bowel loops appear normal in the absence of contrast. IMPRESSION: 1. Significant interval increase in the size of a multilobulated anterior right upper lobe mass, now 1.9 cm in diameter. Differential diagnosis includes a metastatic lesion versus primary bronchogenic carcinoma. 2. Mild cardiomegaly, dense coronary artery atherosclerotic calcifications. 3. Patulous esophagus again noted to be filled with significant debris. High risk for aspiration pneumonia. Dictated by: Trever Vergara M.D. on 07/31/2022 at 17:57 Approved by: Trever Vergara M.D. on 07/31/2022 at 18:05
== END ==
PROVIDERS: Family Provider Family Medicine; PCP Family Medicine; Referring Provider Internal Medicine Medical Oncology; Visit Provider Internal Medicine Medical Oncology
DX: C50.919 Malignant neoplasm of unspecified site of unspecified female breast (principal); R91.8 Other nonspecific abnormal finding of lung field; I51.7 Cardiomegaly; I25.10 Atherosclerotic heart disease of native coronary artery without angina pectoris
CPT/HCPCS: 71250

== ENCOUNTER 2022-08-02 13:27 | Emergency (ER) | payer MEDICARE, OTHER, SELFPAY ==
[2021-08-04 14:29] VITALS: BMI 21.7
[2022-08-02] VITALS (23 sets, daily range): BP systolic 74–108; BP diastolic 43–57; PULSE 65–131; RESP 15–29; TEMP 36.4; O2SAT 87–99; BMI 20.5
--- NOTE | 2022-08-02 13:35 | DI.RAD.S_ITS ---
PROCEDURE: XR CHEST 1V INDICATIONS: chest pain TECHNIQUE: One view of the chest was acquired. COMPARISON: [facility], , CHEST 2 VIEW, 08/02/2017, 13:21. FINDINGS: Surgical changes and devices: None. Lungs and pleura: Lungs are clear. No pleural effusions or pneumothorax. Mediastinum: Mediastinal contours appear normal. Heart size is normal. Bones and chest wall: No suspicious bony lesions. Overlying soft tissues appear unremarkable. IMPRESSION: No acute pulmonary process. Dictated by: Erinn Barnard M.D. on 08/02/2022 at 15:11 Approved by: Erinn Barnard M.D. on 08/02/2022 at 15:12
[2022-08-02 14:06] LABS: Add Manual Diff / Slide Review NO; Basophils Absolute Auto 100 /uL (0-100); Basophils Percent Auto 0.7 % (0-2); Eosinophils Absolute Auto 500 /uL (0-450); Eosinophils Percent Auto 7.6 % (2-4); Hematocrit 27.4 % (36-46); Hemoglobin 8.9 g/dL (12.0-16.0); Lymphocytes Absolute Auto 700 /uL (1100-4500); Lymphocytes Percent Auto 10.1 % (25-40); Mean Corpuscular HGB Conc 32.5 % (30-36); Mean Corpuscular Hemoglobin 31.4 PG (26-34); Mean Corpuscular Volume 96.6 fL (80-100); Monocytes Absolute Auto 500 /uL (0-900); Monocytes Percent Auto 6.8 % (3-14); Neutrophils Absolute Auto 5400 /uL (1500-7000); Neutrophils Percent Auto 74.8 % (50-75); Platelet Count 214 X10^3/uL (150-400); Red Blood Cell Count 2.83 X10^6/uL (4.0-5.2); Red Cell Distribution Width 17.3 % (11.6-14.8); White Blood Cell Count 7.2 X10^3/uL (4.5-11.0)
[2022-08-02 14:07] LABS: Prothrombin Time 11.6 SECONDS (10.1-12.7)
[2022-08-02 14:09] LABS: PTT Partial Thromboplastin Tim 29 SECONDS (26-36)
[2022-08-02 14:22] LABS: Alanine Aminotransferase 24 IU/L (<35); Albumin 3.1 g/dL (3.5-5.0); Albumin Globulin Ratio 1.1 (1.0-2.8); Alkaline Phosphatase 140 U/L (38-126); Aspartate Aminotransferase 32 IU/L (14-36); BUN Creatinine Ratio 15.6 (6-22); Bilirubin Total 0.3 mg/dL (0.2-1.3); Blood Urea Nitrogen 69 mg/dL (7-17); Calcium 9.2 mg/dL (8.4-10.2); Carbon Dioxide 26 mmol/L (22-32); Chloride 99 mmol/L (98-107); Creatine Kinase 23 U/L (30-135); Estimated Glomerular Filt Rate 10 mL/min (>60); Globulin 2.7 g/dL (1.7-4.1); Glucose 103 mg/dL (80-110); HEMOLYSIS < 15 (0-50); Lipase 65 U/L (23-300); Magnesium 1.4 mg/dL (1.6-2.3); Potassium 4.1 mmol/L (3.4-5.1); Sodium 135 mmol/L (137-145); Total Protein 5.8 g/dL (6.3-8.2)
--- NOTE | 2022-08-02 14:36 | ED.ARRPALP ---
HPI - Arrhythmia/Palpitations General Chief Complaint: Arrhythmia/Palpitations Stated Complaint: low blood pressure,fast heart beat Time Seen by Provider: 08/02/22 14:05 Source: patient Mode of arrival: Wheelchair History of Present Illness HPI narrative: The patient went to her PCM Dr. Zee is office for an exam today, she was noted to have a rapid heart rate in systolic blood pressure of 72. She is referred here for further evaluation. She is on Coumadin about 2 weeks ago. Coumadin was stopped due to a pending EGD. Coumadin was given for presumptive AFib, she says that he is fib was never truly proven despite prolonged monitoring. 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 Related Data Home Medications Medication Instructions Recorded Confirmed acetaminophen 325 mg tablet 325 mg PO Q4H PRN PAIN OR FEVER 06/10/19 06/17/22 diphenhydramine HCl 25 mg capsule 25 mg PO PRN PRN Allergy Symptoms 06/10/19 06/17/22 B complex-vitamin C-folic acid 1 tab PO DAILY 01/05/21 06/17/22 [Dialyvite] Probiotic 1 cap PO BID 01/05/21 06/17/22 lansoprazole 15 mg capsule,delayed 15 mg PO BID 01/05/21 06/17/22 release (Prevacid) sennosides 8.6 mg tablet (senna) 8.6 mg PO BID 01/05/21 06/17/22 allopurinol 100 mg tablet 100 mg DAILY 06/14/21 06/17/22 sevelamer HCl 800 mg tablet 800 mg PO TID 06/14/21 06/17/22 Previous Rx's Medication Instructions Recorded sildenafil (pulm.hypertension) 20 20 mg PO TID #270 tabs 08/15/21 mg tablet nifedipine 90 mg tablet,extended 90 mg PO QPM #90 tabs 10/11/21 release 24 hr pentoxifylline 400 mg See Rx Instructions .Route 11/03/21 tablet,extended release .COMPLEX #270 tabs metoprolol tartrate 25 mg tablet See Rx Instructions .Route 01/09/22 .COMPLEX #180 tabs warfarin 1 mg tablet See Rx Instructions .Route 02/09/22 .COMPLEX #135 tabs atorvastatin 10 mg tablet 10 mg PO BEDTIME #90 tabs 02/14/22 potassium chloride 20 mEq 20 meq PO BID #6 tabs 02/21/22 tablet,extended release alprazolam 0.25 mg tablet See Rx Instructions .Route 03/03/22 .COMPLEX #60 tabs ondansetron 4 mg disintegrating 4 mg PO Q8H PRN nausea and 03/03/22 tablet vomiting #30 tabs Allergies Allergy/AdvReac Type Severity Reaction Status Date / Time carrot [CARROT] Allergy Severe EYES SWELL Verified 08/02/22 13:32 clindamycin [CLINDAMYCIN] AdvReac Severe DIARRHEA Verified 08/02/22 13:32 doxycycline AdvReac Severe Made her Verified 08/02/22 13:32 very nauseous/affected appetite Review of Systems Constitutional Constitutional: Denies body ache(s), Denies chills, Reports fatigue and Denies fever(s) Comments: No recent illness ENT Ears, Nose, Mouth, and Throat: Denies vertigo and Denies dizziness Comments: No ENT complaints. Cardiovascular Cardiovascular: Denies chest pain, Denies syncope, Reports rapid heart rate, Denies pedal edema and Denies dyspnea Respiratory Respiratory: Denies cough and Denies dyspnea Gastrointestinal Gastrointestinal: Denies abdominal pain Musculoskeletal Musculoskeletal: Denies back pain Comments: No lower extremity edema. Integumentary/Breasts Skin/Breast: Denies rash Neurologic Neurologic: Denies confusion, Denies vertigo, Denies dizziness and Denies syncope Psychiatric Psychiatric: Denies confusion Endocrine Endocrine: Reports fatigue Hematologic/Lymphatic Hematologic/Lymphatic: Reports as per HPI On Anticoagulants: No Patient History Medical History Anxiety about health Back stiffness Balance problem Breast cancer in female Cervical somatic dysfunction Chronic nausea Chronic neck pain CKD (chronic kidney disease) (Unknown) Constipation Cranial somatic dysfunction CREST syndrome (Unknown) End stage renal failure on dialysis GERD (gastroesophageal reflux disease) (Unknown) Gout Hiatal hernia with gastroesophageal reflux disease and esophagitis Hyperkalemia Hyperlipemia (Unknown) Hypertension (Unknown) Localized swelling of left forearm Nausea with vomiting Osteopenia (~04/2016) Osteoporosis (~04/2016) Pain of left great toe Raynaud's disease (Unknown) Segmental and somatic dysfunction of abdomen and other regions Segmental and somatic dysfunction of abdomen and other regions Segmental and somatic dysfunction of pelvic region Segmental and somatic dysfunction of rib cage Segmental and somatic dysfunction of sacral region Segmental and somatic dysfunction of thoracic region Somatic dysfunction of right lower extremity Upper extremity somatic dysfunction Warfarin anticoagulation Surgical History History of cataract removal with insertion of prosthetic lens History of rectal surgery Status post breast biopsy Status post hysterectomy Status post tonsillectomy and adenoidectomy Family History Father Congestive heart failure Hypertension Mother Myocardial infarction Social History household members: children Smoking Status: Never smoker alcohol intake: current Smoking Status: Never smoker alcohol intake frequency: holidays/special occasions only Substance Use Type: does not use Exam Initial Vital Signs Initial Vital Signs: Vital Signs Temperature 97.6 F 08/02/22 13:30 Pulse Rate 131 H 08/02/22 13:30 Respiratory Rate 15 08/02/22 13:30 Blood Pressure 74/43 L 08/02/22 13:30 Pulse Oximetry 99 08/02/22 13:30 Oxygen Delivery Method 08/02/22 13:30 Const General: cooperative, comfortable, well developed and well groomed [facility] Head: normal to inspection, normocephalic and atraumatic Nose: external nose normal Face and sinus: sinuses nontender Mouth: oral mucosae normal Eyes General: Yes appearance normal, both eyes and all related structures Neck Neck: normal visual inspection and No JVD Chest Chest: normal inspection of the chest Resp Auscultation: clear to auscultation bilaterally Cardio Palpation: normal PMI Rate: regular rate Rhythm: regular rhythm Heart Sounds: S1 normal and S2 normal GI Inspection: normal to inspection Back/Spine/Pelvis Back: normal to inspection and No back tenderness Skin General: no rashes or lesions noted Neuro General: patient awake, patient oriented x3 and no focal motor deficits Extrem General: normal to inspection, full ROM, no pedal edema and no calf tenderness Course Course Course Narrative: Her initial EKG showed AV with RVR, she spontaneously converted prior to my evaluation. She is then an normal sinus rhythm. Although assumed, AFib had apparently never been proven. I discussed her situation but cardiology, Dr. Rojas. With her doing peritoneal dialysis, Coumadin is the only entire gland she can take. I have restarted this medication. I increased her metoprolol 25 mg 2 times daily. It was suggested she arrange follow-up with her contact lens curve grinder. Orders Ordered: ED Orders 08/02/22 13:35 XR chest 1V Stat 08/02/22 13:45 Complete Blood Count AUTO DIFF Stat Comprehensive Metabolic Panel Stat Lipase Stat Magnesium Stat Partial Thromboplastin Time Stat Prothrombin Time INR Stat Troponin & CK Cardiac Panel Stat 08/02/22 13:46 EKG-12 Lead Stat Discontinued Medications Metoprolol Tartrate (Metoprolol Ir 25 Mg Tablet) 25 mg PO NOW ONE Stop: 08/02/22 16:56 Last Admin: 08/02/22 18:17 Dose: Not Given Documented By: NR Warfarin Sodium (Warfarin 5 Mg Tablet) 5 mg PO NOW ONE Stop: 08/02/22 16:56 Last Admin: 08/02/22 18:17 Dose: Not Given Documented By: NR Vital Signs Vital signs: Vital Signs - 8 hr 08/02/22 14:10 08/02/22 14:10 08/02/22 14:20 Pulse Rate 76 Respiratory Rate Blood Pressure 88/55 L 95/51 L Pulse Oximetry 98 08/02/22 14:20 08/02/22 14:27 08/02/22 14:27 Pulse Rate 75 72 Respiratory Rate Blood Pressure 97/50 L Pulse Oximetry 97 98 08/02/22 14:30 08/02/22 14:30 08/02/22 14:40 Pulse Rate 75 Respiratory Rate Blood Pressure 104/55 L 92/51 L Pulse Oximetry 87 L 08/02/22 14:40 08/02/22 14:50 08/02/22 14:50 Pulse Rate 67 68 Respiratory Rate 21 Blood Pressure 96/50 L Pulse Oximetry 98 98 08/02/22 15:00 08/02/22 15:00 08/02/22 15:10 Pulse Rate 65 65 Respiratory Rate 19 21 Blood Pressure 97/52 L Pulse Oximetry 98 97 08/02/22 15:10 08/02/22 15:20 08/02/22 15:20 Pulse Rate 65 Respiratory Rate 20 Blood Pressure 99/53 L 92/50 L Pulse Oximetry 96 08/02/22 15:30 08/02/22 15:30 08/02/22 15:40 Pulse Rate 66 Respiratory Rate 17 Blood Pressure 99/56 L 99/55 L Pulse Oximetry 97 08/02/22 15:40 08/02/22 15:50 08/02/22 15:50 Pulse Rate 67 67 Respiratory Rate 20 20 Blood Pressure 106/57 L Pulse Oximetry 97 98 08/02/22 16:00 08/02/22 16:00 08/02/22 16:10 Pulse Rate 68 Respiratory Rate 21 Blood Pressure 108/57 L 106/56 L Pulse Oximetry 98 08/02/22 16:10 08/02/22 16:20 08/02/22 16:20 Pulse Rate 68 67 Respiratory Rate 18 18 Blood Pressure 108/55 L Pulse Oximetry 97 98 08/02/22 16:30 08/02/22 16:30 08/02/22 16:40 Pulse Rate 69 Respiratory Rate 21 Blood Pressure 103/54 L 103/54 L Pulse Oximetry 97 08/02/22 16:40 08/02/22 16:50 08/02/22 16:50 Pulse Rate 68 67 Respiratory Rate 26 H 21 Blood Pressure 101/54 L Pulse Oximetry 99 98 08/02/22 17:00 08/02/22 17:00 Pulse Rate 66 Respiratory Rate 19 Blood Pressure 104/56 L Pulse Oximetry 97 MDM - Arrhythmia/Palpitations Lab Data Result diagrams: 08/02/22 13:45 08/02/22 13:45 Labs: Lab Results 08/02/22 08/02/22 08/02/22 Range/Units 13:45 13:45 13:45 WBC 7.2 (4.5-11.0) X10^3/uL RBC 2.83 L (4.0-5.2) X10^6/uL Hgb 8.9 L (12.0-16.0) g/dL Hct 27.4 L (36-46) % MCV 96.6 (80-100) fL MCH 31.4 (26-34) PG MCHC 32.5 (30-36) % RDW 17.3 H (11.6-14.8) % Plt Count 214 (150-400) X10^3/uL Neut % (Auto) 74.8 (50-75) % Lymph % (Auto) 10.1 L (25-40) % [place] % (Auto) 6.8 (3-14) % Eos % (Auto) 7.6 H (2-4) % Baso % (Auto) 0.7 (0-2) % Neut # (Auto) 5400 (5879-0565) /uL Lymph # (Auto) 700 L (4102-6229) /uL [place] # (Auto) 500 (0-900) /uL Eos # (Auto) 500 H (0-450) /uL Baso # (Auto) 100 (0-100) /uL PT 11.6 (10.1-12.7) SECONDS INR 1.0 (0.9-1.3) APTT 29 (26-36) SECONDS Sodium 135 L (137-145) mmol/L Potassium 4.1 (3.4-5.1) mmol/L Chloride 99 (98-107) mmol/L Carbon Dioxide 26 (22-32) mmol/L BUN 69 H (7-17) mg/dL Creatinine 4.42 H (0.52-1.04) mg/dL Estimated GFR 10 L (>60) mL/min BUN/Creatinine Ratio 15.6 (6-22) Glucose 103 (80-110) mg/dL Calcium 9.2 (8.4-10.2) mg/dL Magnesium 1.4 L (1.6-2.3) mg/dL Total Bilirubin 0.3 (0.2-1.3) mg/dL AST 32 (14-36) IU/L ALT 24 (<35) IU/L Alkaline Phosphatase 140 H (38-126) U/L Total Creatine Kinase 23 L (30-135) U/L CK-MB (CK-2) TNP CK-MB (CK-2) Rel Index TNP Troponin I 0.020 (0.01-0.034) ng/mL Total Protein 5.8 L (6.3-8.2) g/dL Albumin 3.1 L (3.5-5.0) g/dL Globulin 2.7 (1.7-4.1) g/dL Albumin/Globulin Ratio 1.1 (1.0-2.8) Lipase 65 (23-300) U/L Imaging Data Chest x-ray: Radiologist's Impresson: No acute cardiopulmonary disease. ECG Data Attestation: I personally reviewed and interpreted this ECG as follows: (EKG 1. AFib rate 120 beats per minute. LAD. Interventricular conduction block. EKG 2.: Normal sinus rhythm rate 67 beats per minute. LAD nonspecific IVCD. LVH. ) Discharge Plan Departure Patient Disposition: Home Clinical Impression: Atrial fibrillation Instructions: DI for Atrial Fibrillation Activity Restrictions/Additional Instructions: Atrial fibrillation was clearly identified on arrival to the ER. Your now back in a normal sinus rhythm. Metoprolol 25 mg 2 times daily. Coumadin [address] Jansen regarding follow-up. Prescriptions: No Action sildenafil (pulm.hypertension) 20 mg tablet 20 mg PO TID Qty: 270 3RF nifedipine 90 mg tablet extended release 24hr 90 mg PO QPM Qty: 90 3RF pentoxifylline 400 mg tablet extended release See Rx Instructions .ROUTE .COMPLEX Qty: 270 0RF Dose Instruction: take 1 tablet by mouth three times a day Rx Instructions: take 1 tablet by mouth three times a day metoprolol tartrate 25 mg tablet See Rx Instructions .ROUTE .COMPLEX Qty: 180 0RF Dose Instruction: take 1 tablet by mouth twice a day Rx Instructions: take 1 tablet by mouth twice a day warfarin 1 mg tablet See Rx Instructions .ROUTE .COMPLEX Qty: 135 3RF Dose Instruction: take 1 AND 1/2 tablet by mouth once daily Rx Instructions: take 1.5mg by mouth once daily atorvastatin 10 mg tablet 10 mg PO BEDTIME Qty: 90 3RF ondansetron 4 mg tablet,disintegrating 4 mg PO Q8H PRN (Reason: nausea and vomiting) Qty: 30 3RF alprazolam 0.25 mg tablet See Rx Instructions .ROUTE .COMPLEX Qty: 60 5RF Rx Instructions: Take 1/2 to 1 tablet by mouth 2 times daily as needed for anxiety lansoprazole [Prevacid] 15 mg capsule,delayed release(DR/EC) 15 mg PO BID sennosides [senna] 8.6 mg tablet 8.6 mg PO BID B complex-vitamin C-folic acid 1 tab PO DAILY Probiotic 1 cap PO BID potassium chloride 20 mEq tablet extended release 20 meq PO BID Qty: 6 0RF acetaminophen 325 mg Tablet 325 mg PO Q4H PRN (Reason: PAIN OR FEVER) diphenhydramine HCl 25 mg Capsule 25 mg PO PRN PRN (Reason: Allergy Symptoms) sevelamer HCl 800 mg Tablet 800 mg PO TID allopurinol 100 mg Tablet 100 mg DAILY Referrals: Nishant Lanza DO [Primary Care Provider] - Visit Report Forms: Patient Portal/API
--- NOTE | 2022-08-02 15:02 | PC.NURSE ---
pt was at an oncology appt this morning and was sent to the ER for a low bp reading. pt states she has been feeling very dizzy and lightheaded when she moves around. if she holds still she does not feel this way
== END 2022-08-02 20:19 | disposition home or self-care (01) ==
PROVIDERS: Emergency Provider Emergency Medicine; Family Provider Family Medicine; PCP Family Medicine
DX: I48.91 Unspecified atrial fibrillation (principal); Z79.01 Long term (current) use of anticoagulants; C50.412 Malignant neoplasm of upper-outer quadrant of left female breast; R91.8 Other nonspecific abnormal finding of lung field; I95.9 Hypotension, unspecified; R00.0 Tachycardia, unspecified; I12.0 Hypertensive chronic kidney disease with stage 5 chronic kidney disease or end stage renal disease; N18.6 End stage renal disease; M34.9 Systemic sclerosis, unspecified; Z99.2 Dependence on renal dialysis; Z17.1 Estrogen receptor negative status [ER-]; Z90.12 Acquired absence of left breast and nipple
CPT/HCPCS: 36415; 71045; 80053; 82550; 83690; 83735; 84484; 85025; 85610; 85730; 93005; 93010; 99214; 99283; 99284

== ENCOUNTER 2022-10-18 18:06 | Emergency (ER) | payer MEDICARE, OTHER, SELFPAY ==
[2021-08-04 14:29] VITALS: BMI 21.7
[2022-10-18] VITALS (12 sets, daily range): BP systolic 58–94; BP diastolic 29–52; PULSE 67–75; RESP 15–31; TEMP 36; O2SAT 91–100; BMI 18.4
--- NOTE | 2022-10-18 18:33 | ED_ITS ---
HPI - Neuro Symptoms/Deficit General Chief Complaint: Neuro Symptoms/Deficit Stated Complaint: Thinks TIA Time Seen by Provider: 10/18/22 18:20 Source: patient and family Mode of arrival: Wheelchair History of Present Illness HPI Narrative: Patient is an 82-year-old female with multiple chronic medical issues to include renal failure for which she does peritoneal dialysis. Also has a history of cancer. Is not currently on any chemotherapy. Recently it was found that she potentially has metastasis of this cancer. She does have follow-up scheduled for biopsy. She did have a port placed approximately 1 week ago secondary to difficulty with obtaining IV access. She is a history of anemia. She is a [employer] and will not agree to a blood transfusion. Her electrical prospecting operator has talked about doing iron infusions. She is never had a stroke. Not on blood thinners. Who was noticed that over the past 24 hours potentially little longer that she is had occasional episodes of confusion and balance issues. She is here with her daughter who is providing information. There was no reported speech difficulties but she was having problems remembering things. Today she was complaining of right hand numbness. At the time of my evaluation that has actually resolved and she stated that her left hand is somewhat numb. Her carole ghter thinks that she has improved tremendously in his potentially even back to baseline with regard to how she is acting in her memory. Patient states that in general she just does not feel very well. Seven some indigestion but that was after drinking orange juice yesterday and also having orange juice here in the emergency department. She denies headaches. No vision changes. No chest pain. No shortness of breath. No weakness in her upper lower extremities On Anticoagulants: Yes (coumadin) Related Data Home Medications Medication Instructions Recorded Confirmed acetaminophen 325 mg tablet 325 mg PO Q4H PRN PAIN OR FEVER 06/10/19 08/31/22 diphenhydramine HCl 25 mg capsule 25 mg PO PRN PRN Allergy Symptoms 06/10/19 08/31/22 B complex-vitamin C-folic acid 1 tab PO DAILY 01/05/21 08/31/22 [Dialyvite] Probiotic 1 cap PO BID 01/05/21 08/31/22 lansoprazole 15 mg capsule,delayed 15 mg PO BID 01/05/21 08/31/22 release (Prevacid) sennosides 8.6 mg tablet (senna) 8.6 mg PO BID 01/05/21 08/31/22 allopurinol 100 mg tablet 100 mg DAILY 06/14/21 08/31/22 sevelamer HCl 800 mg tablet 800 mg PO TID 06/14/21 08/31/22 Previous Rx's Medication Instructions Recorded sildenafil (pulm.hypertension) 20 20 mg PO TID #270 tabs 08/15/21 mg tablet pentoxifylline 400 mg See Rx Instructions .Route 11/03/21 tablet,extended release .COMPLEX #270 tabs metoprolol tartrate 25 mg tablet See Rx Instructions .Route 01/09/22 .COMPLEX #180 tabs warfarin 1 mg tablet See Rx Instructions .Route 02/09/22 .COMPLEX #135 tabs potassium chloride 20 mEq 20 meq PO BID #6 tabs 02/21/22 tablet,extended release alprazolam 0.25 mg tablet See Rx Instructions .Route 03/03/22 .COMPLEX #60 tabs ondansetron 4 mg disintegrating 4 mg PO Q8H PRN nausea and 03/03/22 tablet vomiting #30 tabs atorvastatin 10 mg tablet 10 mg PO BEDTIME #90 tabs 08/09/22 Allergies Allergy/AdvReac Type Severity Reaction Status Date / Time carrot [CARROT] Allergy Severe EYES SWELL Verified 10/18/22 18:11 clindamycin [CLINDAMYCIN] AdvReac Severe DIARRHEA Verified 10/18/22 18:11 doxycycline AdvReac Severe Made her Verified 10/18/22 18:11 very nauseous/affected appetite Review of Systems Review of Systems Narrative: See HPI Hematologic/Lymphatic On Anticoagulants: Yes (coumadin) Patient History Medical History Anxiety about health Back stiffness Balance problem Breast cancer in female Cervical somatic dysfunction Chronic nausea Chronic neck pain CKD (chronic kidney disease) (Unknown) Constipation Cranial somatic dysfunction CREST syndrome (Unknown) End stage renal failure on dialysis GERD (gastroesophageal reflux disease) (Unknown) Gout Hiatal hernia with gastroesophageal reflux disease and esophagitis Hyperkalemia Hyperlipemia (Unknown) Hypertension (Unknown) Hypotension Localized swelling of left forearm Nausea with vomiting Osteopenia (~04/2016) Osteoporosis (~04/2016) Pain of left great toe Raynaud's disease (Unknown) Reactive depression (situational) Segmental and somatic dysfunction of abdomen and other regions Segmental and somatic dysfunction of abdomen and other regions Segmental and somatic dysfunction of pelvic region Segmental and somatic dysfunction of rib cage Segmental and somatic dysfunction of sacral region Segmental and somatic dysfunction of thoracic region Somatic dysfunction of right lower extremity Upper extremity somatic dysfunction Warfarin anticoagulation Surgical History History of cataract removal with insertion of prosthetic lens History of rectal surgery Status post breast biopsy Status post hysterectomy Status post tonsillectomy and adenoidectomy Family History Father Congestive heart failure Hypertension Mother Myocardial infarction Social History household members: children Smoking Status: Never smoker alcohol intake: current Smoking Status: Never smoker alcohol intake frequency: holidays/special occasions only Substance Use Type: does not use Exam Initial Vital Signs Initial Vital Signs: Vital Signs Temperature 96.8 F L 10/18/22 18:11 Pulse Rate 70 10/18/22 18:11 Respiratory Rate 15 10/18/22 18:11 Blood Pressure 65/29 L 10/18/22 18:11 Pulse Oximetry 100 10/18/22 18:11 Oxygen Delivery Method 10/18/22 18:11 Const General: cooperative, comfortable and No ill appearing HENMT Head: normal to inspection and normocephalic Face and sinus: normal facial exam Mouth: other (Dry mucous membranes) Eyes EOM: EOM intact bilaterally Resp Effort & Inspection: normal respiratory effort Auscultation: clear to auscultation bilaterally Cardio Rate: regular rate Rhythm: regular rhythm GI Inspection: normal to inspection Palpation: soft, No firm and No tender Skin General: no rashes or lesions noted Neuro General: patient alert, patient awake, patient oriented x3 and moves all extremities Cranial Nerves: CN's II-XI intact bilaterally and tongue midline Cognition: normal cognition Speech: speech normal Gait: other (Ambulated with walker. Somewhat unsteady but she states this is her baseli) Motor: muscle tone normal throughout, strength 5/5 throughout and no pronator drift Sensory Exam: no sensory deficits noted Extrem General: normal to inspection, capillary refill normal and No edema Psych Appearance: grossly normal and well kempt Scores GCS Dannie coma scale eye opening: Spontaneous Dannie coma scale verbal response: Orientated Dannie coma scale motor response: Obey commands Dannie coma scale total score: 15 Course Orders Ordered: Discontinued Medications Calcium Carbonate (Calcium Carbonate 500 Mg Tab) 1,000 mg PO NOW ONE Stop: 10/18/22 22:12 Last Admin: 10/18/22 22:40 Dose: 1,000 mg Documented By: OW Heparin Sodium (Porcine) (Heparin 500 Unit/5 Ml Port Flush) 500 unit IV PRN PRN PRN Reason: Flush Last Admin: 10/18/22 23:36 Dose: 500 unit Documented By: OW Sodium Chloride (Normal Saline 0.9%) 1,000 mls @ 100 mls/hr IV CONT MARILOU Last Admin: 10/18/22 21:00 Dose: 100 mls/hr Documented By: OW Vital Signs Vital signs: Vital Signs - 8 hr 10/18/22 23:47 Pulse Rate 75 Respiratory Rate 20 Blood Pressure 87/52 L Pulse Oximetry 94 Oxygen Delivery Method Room Air MDM - Neuro Symptoms/Deficit Lab Data Attestation: I reviewed the patient's lab results. 10/18/22 20:18 10/18/22 20:18 Labs: Lab Results 10/18/22 10/18/22 10/18/22 Range/Units 19:30 19:30 20:18 WBC 8.9 (4.5-11.0) X10^3/uL RBC 2.33 L (4.0-5.2) X10^6/uL Hgb 7.0 L (12.0-16.0) g/dL Hct 21.5 L (36-46) % MCV 92.3 (80-100) fL MCH 30.1 (26-34) PG MCHC 32.6 (30-36) % RDW 18.7 H (11.6-14.8) % Plt Count 141 L (150-400) X10^3/uL Neut % (Auto) 88.1 H (50-75) % Lymph % (Auto) 6.2 L (25-40) % [place] % (Auto) 3.5 (3-14) % Eos % (Auto) 1.7 L (2-4) % Baso % (Auto) 0.5 (0-2) % Neut # (Auto) 7841 H (9527-6099) /uL Lymph # (Auto) 552 L (3481-9529) /uL [place] # (Auto) 312 (0-900) /uL Eos # (Auto) 151 (0-450) /uL Baso # (Auto) 45 (0-100) /uL PT (10.1-12.7) SECONDS INR (0.9-1.3) APTT (26-36) SECONDS Sodium (137-145) mmol/L Potassium (3.4-5.1) mmol/L Chloride (98-107) mmol/L Carbon Dioxide (22-32) mmol/L BUN (7-17) mg/dL Creatinine (0.52-1.04) mg/dL Estimated GFR (>60) mL/min BUN/Creatinine Ratio (6-22) Glucose (80-110) mg/dL Lactate 1.5 (0.7-2.1) mmol/L Calcium (8.4-10.2) mg/dL Total Bilirubin (0.2-1.3) mg/dL AST (14-36) IU/L ALT (<35) IU/L Alkaline Phosphatase (38-126) U/L Total Creatine Kinase (30-135) U/L CK-MB (CK-2) CK-MB (CK-2) Rel Index Troponin I (0.01-0.034) ng/mL Total Protein (6.3-8.2) g/dL Albumin (3.5-5.0) g/dL Globulin (1.7-4.1) g/dL Albumin/Globulin Ratio (1.0-2.8) Lipase (23-300) U/L Procalcitonin 0.81 H (<0.5) ng/mL 10/18/22 10/18/22 Range/Units 20:18 20:18 WBC (4.5-11.0) X10^3/uL RBC (4.0-5.2) X10^6/uL Hgb (12.0-16.0) g/dL Hct (36-46) % MCV (80-100) fL MCH (26-34) PG MCHC (30-36) % RDW (11.6-14.8) % Plt Count (150-400) X10^3/uL Neut % (Auto) (50-75) % Lymph % (Auto) (25-40) % [place] % (Auto) (3-14) % Eos % (Auto) (2-4) % Baso % (Auto) (0-2) % Neut # (Auto) (0151-4488) /uL Lymph # (Auto) (4203-7913) /uL [place] # (Auto) (0-900) /uL Eos # (Auto) (0-450) /uL Baso # (Auto) (0-100) /uL PT 18.6 H (10.1-12.7) SECONDS INR 1.6 H (0.9-1.3) APTT 33 (26-36) SECONDS Sodium 129 L (137-145) mmol/L Potassium 4.0 (3.4-5.1) mmol/L Chloride 97 L (98-107) mmol/L Carbon Dioxide 26 (22-32) mmol/L BUN 43 H (7-17) mg/dL Creatinine 5.02 H (0.52-1.04) mg/dL Estimated GFR 8 L (>60) mL/min BUN/Creatinine Ratio 8.6 (6-22) Glucose 89 (80-110) mg/dL Lactate (0.7-2.1) mmol/L Calcium 7.6 L (8.4-10.2) mg/dL Total Bilirubin 0.7 (0.2-1.3) mg/dL AST 22 (14-36) IU/L ALT 8 (<35) IU/L Alkaline Phosphatase 102 (38-126) U/L Total Creatine Kinase < 20 L (30-135) U/L CK-MB (CK-2) TNP CK-MB (CK-2) Rel Index TNP Troponin I 0.047 H (0.01-0.034) ng/mL Total Protein 4.6 L (6.3-8.2) g/dL Albumin 2.2 L (3.5-5.0) g/dL Globulin 2.4 (1.7-4.1) g/dL Albumin/Globulin Ratio 0.9 L (1.0-2.8) Lipase 48 (23-300) U/L Procalcitonin (<0.5) ng/mL Imaging Data CT scan - head: Radiologist's Impression: PROCEDURE:? CT HEAD/BRAIN WO CON ? INDICATIONS:? TIA ? TECHNIQUE:? Noncontrast 4.5 mm thick angled axial sections acquired from the foramen magnum to the vertex, with coronal and sagittal reformats.? For radiation dose reduction, the following was used:? automated exposure control, adjustment of mA and/or kV according to patient size.? ? COMPARISON:? [facility], CT, CT HEAD WITHOUT CONTRAST, 04/27/2020, 10:46. ? FINDINGS:? Image quality:? Excellent.? ? CSF spaces:? Basal cisterns are patent.? No extra-axial fluid collections.? The ventricles are symmetric in size and shape.? ? Brain:? No intracranial bleeds or masses.? There is cerebral volume loss for age, with resultant ventricular and sulcal prominence.? There are periventricular and deep white matter chronic small vessel ischemic changes.? There is intracranial internal carotid artery atherosclerosis.? ? Skull and face:? Calvarium and visualized facial bones appear intact, without suspicious lesions.? ? Sinuses:? Visualized sinuses and mastoids are clear.? ? IMPRESSION:? No intracranial hemorrhage or other acute intracranial abnormality. ? Brain MRI: Radiologist's Impression: PROCEDURE:? MR STROKE Pre- and post-contrast brain MRI, non-contrast brain MR angiogram, pre- and postcontrast neck MR angiogram ? INDICATIONS:? eval for stroke ? TECHNIQUE:? Brain:? Noncontrast axial T1 spin echo, axial T2 fast spin echo, sagittal and axial FLAIR, coronal T2 fast spin echo, axial gradient echo, axial diffusion and ADC through the brain.? After the administration of contrast, axial 3D VIBE of the cranial vasculature and brain.? Brain MRA:? Non-contrast 3-D time of flight MR angiogram, with multiple thntrio-mvxgqtiyc-xzltewmryd (MIP) reformats performed.? Neck MRA:? Axial and sagittal TruFISP through the neck.? Coronal dynamic MR angiogram during administration of contrast in the arterial and venous phases, with 3- dimenstional rbhxqbw-iytjcxser-ogxllnxfyj (MIP) reformats constructed from subtraction images.? ? COMPARISON:? [facility], CT, CT HEAD/BRAIN WO CON, 10/18/2022, 18:40. ? FINDINGS:? Image quality:? There is extensive motion artifact limiting evaluation.? ? CSF spaces:? There is cerebral volume loss with prominence of the ventricles and sulci.? Basal cisterns are patent.? No extra-axial fluid collections.? Brain:? Diffusion weighted images demonstrate no acute infarcts.? No intracranial hemorrhage, mass, or mass effect.? There are subcortical and periventricular foci of white matter T2 hyperintensity consistent with chronic small vessel ischemic changes.? Brainstem appears normal.? Normal intravascular flow voids are present.? No abnormal intracranial enhancement.? Skull and face:? Calvarial marrow signal is normal.? Orbits appear normal.? Sinuses:? Sinuses and mastoids are clear.? ? BRAIN MR ANGIOGRAM:? Anterior circulation:? Intracranial internal carotid arteries are normal in size and patent bilaterally.? The flow within the paired anterior cerebral arteries is patent bilaterally, with a diminutive right A1 segment likely representing an anatomic variant.? The flow within the middle cerebral arteries is symmetric and patent bilaterally.? The anterior communicating artery is patent.? No high-grade stenoses, occlusions, or aneurysms.? Posterior circulation:? There is a left dominant vertebrobasilar system with a diminutive right vertebral artery.? These join to form a patent basilar artery.? The flow within the posterior cerebral arteries is symmetric and patent bilaterally.? No high-grade stenoses, occlusions, or aneurysms.? ? NECK MR ANGIOGRAM:? Carotids:? Great vessels demonstrate conventional anatomy as they arise from the aortic arch.? The origins of the common carotid arteries appear patent.? The calibers and courses of both common carotid arteries are normal.? There is mild narrowing of less than 50% in the right carotid bulb.? The left carotid bulb is widely patent.? The internal carotid arteries demonstrate normal course and caliber.? Posterior circulation:? The vertebral arteries appear patent bilaterally.? There is a left dominant vertebrobasilar system with a diminutive right vertebral artery. Miscellaneous:? Subclavian arteries appear patent.? Pre-contrast images through the neck demonstrate no soft tissue abnormalities.? ? IMPRESSION:? ? BRAIN MRI:? ? 1. No infarct or other definite acute intracranial abnormality. ? 2.? Moderate chronic white matter small vessel ischemic changes and cerebral volume loss. ? BRAIN MR ANGIOGRAM:? ? 1. No definite high-grade stenosis or occlusion of the central intracranial arteries. ? 2. Diminutive A1 segment of the right anterior cerebral artery likely represents an anatomic variant.? There is a patent anterior communicating artery. ? NECK MR ANGIOGRAM:? ? 1. No high-grade stenosis or occlusion of the head and neck arteries.? There is segmental narrowing of less than 50% in the right carotid bulb.? ECG Data Attestation: I personally reviewed and interpreted this ECG as follows: Interpretation: Sinus rhythm Ventricular rate is 65 Left axis deviation QRS 140 milliseconds QTC [address] T wave changes MDM Narrative Medical decision making narrative: Patient has subjective left hand tenderness. She is alert oriented x3. According to family at bedside her facial expressions and speech are normal for her. Patient has had some episodes of hypotension however she did state that her blood pressure is normally in the low 90s. She was mentating without issue. She ambulated with a walker with some staggering however she states that this is baseline for her. She was having indigestion which improved with Tums. Has nonspecific changes on her EKG. Troponin is indeterminate. Low suspicion for ACS given her presentation today, EKG and also her renal failure and lack of chest pain. Her head CT is unremarkable. There is no signs of acute stroke/bleed/metastasis. MRI of her brain also does not show any signs of acute ischemia. According to the patient and family she has returned to baseline. Patient is anemic. We discussed potentially her anemia could be causing some of her presenting symptoms however she is adamant that she does not want a blood transfusion secondary to her church beliefs. No indication for t-PA. Patient does have a follow-up with her primary doctor the beginning of next week. And a long discussion with the patient and family regarding her presenting symptoms today. We discussed the elevated troponin. We discussed her presenting symptoms. We discussed CVA/TIA. Discussed her anemia. After this discussion found to be is to discharge patient home. Will make no changes any of her medications. For have her keep her scheduled follow-up with her alice heaton doctor next week. She was given strict return precautions. Both the patient and daughter who is at bedside expressed understanding and agreement with plan. Discharge Plan Departure Patient Disposition: Home Clinical Impression: Brain TIA Instructions: DI for Transient Ischemic Attack Activity Restrictions/Additional Instructions: I do recommend that you continue to take all of your medications as directed and keep all of your scheduled medical appointments. Return to the emergency de partment for any new or worsening symptoms. Prescriptions: No Action sildenafil (pulm.hypertension) 20 mg tablet 20 mg PO TID Qty: 270 3RF pentoxifylline 400 mg tablet extended release See Rx Instructions .ROUTE .COMPLEX Qty: 270 0RF Dose Instruction: take 1 tablet by mouth three times a day Rx Instructions: take 1 tablet by mouth three times a day metoprolol tartrate 25 mg tablet See Rx Instructions .ROUTE .COMPLEX Qty: 180 0RF Dose Instruction: take 1 tablet by mouth twice a day Rx Instructions: take 1 tablet by mouth twice a day warfarin 1 mg tablet See Rx Instructions .ROUTE .COMPLEX Qty: 135 3RF Dose Instruction: take 1 AND 1/2 tablet by mouth once daily Rx Instructions: take 1.5mg by mouth once daily ondansetron 4 mg tablet,disintegrating 4 mg PO Q8H PRN (Reason: nausea and vomiting) Qty: 30 3RF alprazolam 0.25 mg tablet See Rx Instructions .ROUTE .COMPLEX Qty: 60 5RF Rx Instructions: Take 1/2 to 1 tablet by mouth 2 times daily as needed for anxiety atorvastatin 10 mg tablet 10 mg PO BEDTIME Qty: 90 3RF lansoprazole [Prevacid] 15 mg capsule,delayed release(DR/EC) 15 mg PO BID sennosides [senna] 8.6 mg tablet 8.6 mg PO BID B complex-vitamin C-folic acid 1 tab PO DAILY Probiotic 1 cap PO BID potassium chloride 20 mEq tablet extended release 20 meq PO BID Qty: 6 0RF acetaminophen 325 mg Tablet 325 mg PO Q4H PRN (Reason: PAIN OR FEVER) diphenhydramine HCl 25 mg Capsule 25 mg PO PRN PRN (Reason: Allergy Symptoms) sevelamer HCl 800 mg Tablet 800 mg PO TID allopurinol 100 mg Tablet 100 mg DAILY Referrals: Nishant Lanza DO [Primary Care Provider] - Stand Alone Forms: Patient Portal/API
--- NOTE | 2022-10-18 18:36 | DI.CT.S_ITS ---
PROCEDURE: CT HEAD/BRAIN WO CON INDICATIONS: TIA TECHNIQUE: Noncontrast 4.5 mm thick angled axial sections acquired from the foramen magnum to the vertex, with coronal and sagittal reformats. For radiation dose reduction, the following was used: automated exposure control, adjustment of mA and/or kV according to patient size. COMPARISON: [facility], CT, CT HEAD WITHOUT CONTRAST, 04/27/2020, 10:46. FINDINGS: Image quality: Excellent. CSF spaces: Basal cisterns are patent. No extra-axial fluid collections. The ventricles are symmetric in size and shape. Brain: No intracranial bleeds or masses. There is cerebral volume loss for age, with resultant ventricular and sulcal prominence. There are periventricular and deep white matter chronic small vessel ischemic changes. There is intracranial internal carotid artery atherosclerosis. Skull and face: Calvarium and visualized facial bones appear intact, without suspicious lesions. Sinuses: Visualized sinuses and mastoids are clear. IMPRESSION: No intracranial hemorrhage or other acute intracranial abnormality. Dictated by: Adolph Jimenez M.D. on 10/18/2022 at 19:09 Approved by: Adolph Jimenez M.D. on 10/18/2022 at 19:14
--- NOTE | 2022-10-18 19:29 | DI.MRI.S_ITS ---
PROCEDURE: MR STROKE Pre- and post-contrast brain MRI, non-contrast brain MR angiogram, pre- and postcontrast neck MR angiogram INDICATIONS: eval for stroke TECHNIQUE: Brain: Noncontrast axial T1 spin echo, axial T2 fast spin echo, sagittal and axial FLAIR, coronal T2 fast spin echo, axial gradient echo, axial diffusion and ADC through the brain. After the administration of contrast, axial 3D VIBE of the cranial vasculature and brain. Brain MRA: Non-contrast 3-D time of flight MR angiogram, with multiple dppbpnv-hlvdikxoa-uducfcmtyv (MIP) reformats performed. Neck MRA: Axial and sagittal TruFISP through the neck. Coronal dynamic MR angiogram during administration of contrast in the arterial and venous phases, with 3-dimenstional kjqilmd-hleogchty-iykuomgtmf (MIP) reformats constructed from subtraction images. COMPARISON: [facility], CT, CT HEAD/BRAIN WO CON, 10/18/2022, 18:40. FINDINGS: Image quality: There is extensive motion artifact limiting evaluation. CSF spaces: There is cerebral volume loss with prominence of the ventricles and sulci. Basal cisterns are patent. No extra-axial fluid collections. Brain: Diffusion weighted images demonstrate no acute infarcts. No intracranial hemorrhage, mass, or mass effect. There are subcortical and periventricular foci of white matter T2 hyperintensity consistent with chronic small vessel ischemic changes. Brainstem appears normal. Normal intravascular flow voids are present. No abnormal intracranial enhancement. Skull and face: Calvarial marrow signal is normal. Orbits appear normal. Sinuses: Sinuses and mastoids are clear. BRAIN MR ANGIOGRAM: Anterior circulation: Intracranial internal carotid arteries are normal in size and patent bilaterally. The flow within the paired anterior cerebral arteries is patent bilaterally, with a diminutive right A1 segment likely representing an anatomic variant. The flow within the middle cerebral arteries is symmetric and patent bilaterally. The anterior communicating artery is patent. No high-grade stenoses, occlusions, or aneurysms. Posterior circulation: There is a left dominant vertebrobasilar system with a diminutive right vertebral artery. These join to form a patent basilar artery. The flow within the posterior cerebral arteries is symmetric and patent bilaterally. No high-grade stenoses, occlusions, or aneurysms. NECK MR ANGIOGRAM: Carotids: Great vessels demonstrate conventional anatomy as they arise from the aortic arch. The origins of the common carotid arteries appear patent. The calibers and courses of both common carotid arteries are normal. There is mild narrowing of less than 50% in the right carotid bulb. The left carotid bulb is widely patent. The internal carotid arteries demonstrate normal course and caliber. Posterior circulation: The vertebral arteries appear patent bilaterally. There is a left dominant vertebrobasilar system with a diminutive right vertebral artery. Miscellaneous: Subclavian arteries appear patent. Pre-contrast images through the neck demonstrate no soft tissue abnormalities. IMPRESSION: BRAIN MRI: 1. No infarct or other definite acute intracranial abnormality. 2. Moderate chronic white matter small vessel ischemic changes and cerebral volume loss. BRAIN MR ANGIOGRAM: 1. No definite high-grade stenosis or occlusion of the central intracranial arteries. 2. Diminutive A1 segment of the right anterior cerebral artery likely represents an anatomic variant. There is a patent anterior communicating artery. NECK MR ANGIOGRAM: 1. No high-grade stenosis or occlusion of the head and neck arteries. There is segmental narrowing of less than 50% in the right carotid bulb. Dictated by: Josué Faulkner M.D. on 10/18/2022 at 20:43 Approved by: Josué Faulkner M.D. on 10/18/2022 at 20:52
[2022-10-18 19:59] LABS: Red Cell Distribution Width 18.7 % (11.6-14.8)
[2022-10-18 20:05] LABS: Lactate (Lactic Acid) 1.5 mmol/L (0.7-2.1)
[2022-10-18 20:06] LABS: Alanine Aminotransferase 8 IU/L (<35); Carbon Dioxide 26 mmol/L (22-32); Chloride 97 mmol/L (98-107); Creatine Kinase < 20 U/L (30-135); HEMOLYSIS < 15 (0-50)
[2022-10-18 20:54] LABS: INR 1.6 (0.9-1.3); Prothrombin Time 18.6 SECONDS (10.1-12.7)
[2022-10-18 20:57] LABS: PTT Partial Thromboplastin Tim 33 SECONDS (26-36)
[2022-10-18 21:00] LABS: Red Blood Cell Count 2.33 X10^6/uL (4.0-5.2)
[2022-10-18] MEDS: SODIUM CHLORIDE 0.9% 1,000 ML 100 ML IV (21:00)
[2022-10-18 21:01] LABS: Hematocrit 21.5 % (36-46)
[2022-10-18 21:02] LABS: Mean Corpuscular HGB Conc 32.6 % (30-36); Mean Corpuscular Hemoglobin 30.1 PG (26-34); Mean Corpuscular Volume 92.3 fL (80-100)
[2022-10-18 21:03] LABS: Platelet Count 141 X10^3/uL (150-400)
[2022-10-18 21:05] LABS: Add Manual Diff / Slide Review NO; Basophils Percent Auto 0.5 % (0-2); Eosinophils Percent Auto 1.7 % (2-4); Lymphocytes Percent Auto 6.2 % (25-40); Monocytes Percent Auto 3.5 % (3-14); Neutrophils Percent Auto 88.1 % (50-75)
[2022-10-18 21:06] LABS: Neutrophils Absolute Auto 7841 /uL (1500-7000)
[2022-10-18 21:07] LABS: Lymphocytes Absolute Auto 552 /uL (1100-4500); Monocytes Absolute Auto 312 /uL (0-900)
[2022-10-18 21:08] LABS: Albumin 2.2 g/dL (3.5-5.0); Albumin Globulin Ratio 0.9 (1.0-2.8); Alkaline Phosphatase 102 U/L (38-126); Aspartate Aminotransferase 22 IU/L (14-36); BUN Creatinine Ratio 8.6 (6-22); Basophils Absolute Auto 45 /uL (0-100); Bilirubin Total 0.7 mg/dL (0.2-1.3); Blood Urea Nitrogen 43 mg/dL (7-17); Calcium 7.6 mg/dL (8.4-10.2); Eosinophils Absolute Auto 151 /uL (0-450); Estimated Glomerular Filt Rate 8 mL/min (>60); Globulin 2.4 g/dL (1.7-4.1); Glucose 89 mg/dL (80-110); Lipase 48 U/L (23-300); Sodium 129 mmol/L (137-145); Total Protein 4.6 g/dL (6.3-8.2)
[2022-10-18 21:10] LABS: White Blood Cell Count 8.9 X10^3/uL (4.5-11.0)
[2022-10-18 21:46] LABS: Procalcitonin 0.81 ng/mL (<0.5)
[2022-10-18 21:46] LABS: Troponin I 0.047 ng/mL (0.01-0.034)
[2022-10-18] MEDS: CALCIUM CARBONATE 500 MG TAB 1000 MG PO (22:40)
--- NOTE | 2022-10-18 23:44 | PC.NURSE ---
2300: Pt walked with walker. Pt reports being a little unsteady which is her baseline. Pt became dizzy towards the end of the ambulation trial but family confirmed that this is normal and that she usually does not walk this far (50ft). aware.
== END 2022-10-18 23:49 | disposition home or self-care (01) ==
PROVIDERS: Emergency Provider Emergency Medicine; Family Provider Family Medicine; PCP Family Medicine
DX: G45.9 Transient cerebral ischemic attack, unspecified (principal); R74.8 Abnormal levels of other serum enzymes; R07.9 Chest pain, unspecified; Z79.01 Long term (current) use of anticoagulants
CPT/HCPCS: 36415; 70450; 70548; 70553; 80053; 82550; 83605; 83690; 84145; 84484; 85025; 85610; 85730; 93005; 99285; J1642

== ENCOUNTER 2022-11-11 12:07 | Emergency (ER) | payer MEDICARE, OTHER, SELFPAY ==
[2021-08-04 14:29] VITALS: BMI 21.7
[2022-11-11] VITALS (22 sets, daily range): BP systolic 70–112; BP diastolic 46–59; PULSE 60–87; RESP 18; TEMP 36.3; O2SAT 95–100; BMI 19.0
--- NOTE | 2022-11-11 13:11 | DI.RAD.S_ITS ---
PROCEDURE: XR CHEST 1V INDICATIONS: suspected sepsis TECHNIQUE: One view of the chest was acquired. COMPARISON: [facility], CR, XR CHEST 1V, 08/02/2022, 13:55. FINDINGS: Surgical changes and devices: Right chest port with tip in the right atrium.. Lungs and pleura: Lungs are clear. No pleural effusions or pneumothorax. Mediastinum: Mediastinal contours appear normal. Heart size is normal. Tortuous aorta Bones and chest wall: No suspicious bony lesions. Overlying soft tissues appear unremarkable. IMPRESSION: No acute cardiopulmonary findings. Dictated by: Todd Terry M.D. on 11/11/2022 at 13:32 Approved by: Todd Terry M.D. on 11/11/2022 at 13:33
[2022-11-11] MEDS: SODIUM CHLORIDE 0.9% 500 ML 1000 ML IV (13:23)
--- NOTE | 2022-11-11 13:31 | PC.NURSE ---
Patient port accessed by YELENA Castro.
[2022-11-11 13:37] LABS: COVID19 -Nasal RAPID Negative (Negative)
--- NOTE | 2022-11-11 13:37 | PC.NURSE ---
Addendum entered by Isela Leyva R.N. 11/11/22 14:10: Patient upgraded to Modified trauma. Original Note: Pt reports worsening pain of her right big toe, which the tip is red and with a small black spot. Pt also reports recent slide out from her chair, 1 week and 2 days ago. Pt is on blood thinners, and unsure if she hit her head. Pt has some small scratches on her nose daughter reports there was a small scratch on her forehead. Pt daughter reports some confusion post chair slide. Pt reporting some right shoulder pain. Pt denies chest pain. Pt reports some SOB with exertion. Pt is also on dialysis. Pt did miss one round on November 02. Pt reports hx of lung cancer, anemia with iron infusions and Raynauds. Pt also had recent pedicure and not sure if her right big toe was injured from that.
[2022-11-11 13:45] LABS: Add Manual Diff / Slide Review NO; Basophils Absolute Auto 100 /uL (0-100); Basophils Percent Auto 0.7 % (0-2); Eosinophils Absolute Auto 200 /uL (0-450); Eosinophils Percent Auto 2.4 % (2-4); Hematocrit 27.6 % (36-46); Lymphocytes Absolute Auto 500 /uL (1100-4500); Lymphocytes Percent Auto 6.2 % (25-40); Mean Corpuscular HGB Conc 32.5 % (30-36); Mean Corpuscular Hemoglobin 31.9 PG (26-34); Mean Corpuscular Volume 98.1 fL (80-100); Monocytes Absolute Auto 700 /uL (0-900); Neutrophils Absolute Auto 7000 /uL (1500-7000); Neutrophils Percent Auto 82.7 % (50-75); Platelet Count 168 X10^3/uL (150-400); Red Blood Cell Count 2.81 X10^6/uL (4.0-5.2); Red Cell Distribution Width 22.1 % (11.6-14.8); White Blood Cell Count 8.4 X10^3/uL (4.5-11.0)
--- NOTE | 2022-11-11 13:46 | DI.RAD.S_ITS ---
PROCEDURE: XR SHOULDER RT MIN 2V INDICATIONS: fall/pain since 11/02 TECHNIQUE: To views of the shoulder were acquired. COMPARISON: None. FINDINGS: Bones: No fractures or dislocations. No suspicious bony lesions. Visualized ribs appear intact. Calcific enthesophytes of the proximal humerus. Soft tissues: No suspicious soft tissue calcifications. IMPRESSION: No acute fracture or osseous malalignment. Dictated by: Todd Terry M.D. on 11/11/2022 at 13:34 Approved by: Todd Terry M.D. on 11/11/2022 at 13:34
[2022-11-11 13:51] LABS: INR 2.4 (0.9-1.3); Prothrombin Time 27.5 SECONDS (10.1-12.7)
[2022-11-11 13:53] LABS: PTT Partial Thromboplastin Tim 38 SECONDS (26-36)
[2022-11-11 13:55] LABS: Lactate (Lactic Acid) 1.9 mmol/L (0.7-2.1)
[2022-11-11 13:56] LABS: Alanine Aminotransferase 19 IU/L (<35); Albumin 2.6 g/dL (3.5-5.0); Albumin Globulin Ratio 1.1 (1.0-2.8); Alkaline Phosphatase 89 U/L (38-126); Aspartate Aminotransferase 28 IU/L (14-36); BUN Creatinine Ratio 10.2 (6-22); Bilirubin Total 0.9 mg/dL (0.2-1.3); Blood Urea Nitrogen 49 mg/dL (7-17); Calcium 7.8 mg/dL (8.4-10.2); Carbon Dioxide 27 mmol/L (22-32); Chloride 95 mmol/L (98-107); Estimated Glomerular Filt Rate 9 mL/min (>60); Globulin 2.4 g/dL (1.7-4.1); Glucose 91 mg/dL (80-110); HEMOLYSIS 25 (0-50); Lipase 29 U/L (23-300); Sodium 134 mmol/L (137-145)
[2022-11-11 14:13] LABS: Procalcitonin 1.02 ng/mL (<0.5)
[2022-11-11 14:22] LABS: Anisocytosis 2+; Ovalocytes 1+
--- NOTE | 2022-11-11 14:49 | ED.SKABFB ---
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 Patient has noted that she has not infection distal end of the toe she states she had a pedicure at the end of August she would appreciate any obvious change right away but started having pain she does not check her feet regularly but noticed a black spot on it has not changed but has persistent in his painful. She denies fevers or chills. No chest pain or shortness of breath. She would some nausea and vomiting yesterday but states she has this pretty much daily normally. She is on peritoneal dialysis she makes very little urine but does make some. She occasionally has diarrhea which has been intermittent. She denies abdominal pain, back or flank pain. Patient has not noticed any warmth redness or drainage from the site. It is right on the edge of the nail. Patient states when she bumps it it is painful. She has had to follow up with wound care in the past. Patient is on warfarin for her atrial fibrillation, she does peritoneal dialysis nightly with 4 cycles she is only missed her dialysis on November 02. 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 She is had tonsillectomy and has a port for her dialysis in place. She states allergic to doxycycline and clinda. No tobacco, no alcohol, no illicit. Dr. Babin her primary care. Dr. Leone is her certified indoor environmentalist out of [facility]. Dr. Tena is her senior restaurant manager. Dr. Jansen is her injection mold technician at [facility]. Related Data Home Medications Medication Instructions Recorded Confirmed acetaminophen 325 mg tablet 325 mg PO Q4H PRN PAIN OR FEVER 06/10/19 11/08/22 diphenhydramine HCl 25 mg capsule 25 mg PO PRN PRN Allergy Symptoms 06/10/19 11/08/22 B complex-vitamin C-folic acid 1 tab PO DAILY 01/05/21 11/08/22 [Dialyvite] Probiotic 1 cap PO BID 01/05/21 11/08/22 lansoprazole 15 mg capsule,delayed 15 mg PO BID 01/05/21 11/08/22 release (Prevacid) sennosides 8.6 mg tablet (senna) 8.6 mg PO BID 01/05/21 11/08/22 allopurinol 100 mg tablet 100 mg DAILY 06/14/21 11/08/22 sevelamer HCl 800 mg tablet 800 mg PO TID 06/14/21 11/08/22 Previous Rx's Medication Instructions Recorded sildenafil (pulm.hypertension) 20 20 mg PO TID #270 tabs 08/15/21 mg tablet pentoxifylline 400 mg See Rx Instructions .Route 11/03/21 tablet,extended release .COMPLEX #270 tabs metoprolol tartrate 25 mg tablet See Rx Instructions .Route 01/09/22 .COMPLEX #180 tabs warfarin 1 mg tablet See Rx Instructions .Route 02/09/22 .COMPLEX #135 tabs potassium chloride 20 mEq 20 meq PO BID #6 tabs 02/21/22 tablet,extended release alprazolam 0.25 mg tablet See Rx Instructions .Route 03/03/22 .COMPLEX #60 tabs ondansetron 4 mg disintegrating 4 mg PO Q8H PRN nausea and 03/03/22 tablet vomiting #30 tabs atorvastatin 10 mg tablet 10 mg PO BEDTIME #90 tabs 08/09/22 cephalexin 500 mg capsule 500 mg PO BID #20 caps 11/11/22 oxycodone 5 mg tablet 5 mg PO QID PRN pain #10 tabs 11/11/22 Allergies Allergy/AdvReac Type Severity Reaction Status Date / Time carrot [CARROT] Allergy Severe EYES SWELL Verified 11/11/22 12:28 clindamycin [CLINDAMYCIN] AdvReac Severe DIARRHEA Verified 11/11/22 12:28 doxycycline AdvReac Severe Made her Verified 11/11/22 12:28 very nauseous/affected appetite Review of Systems Review of Systems ROS Unobtainable: All systems reviewed & are unremarkable except as noted in HPI and below Patient History Medical History Anxiety about health Back stiffness Balance problem Breast cancer in female Cervical somatic dysfunction Chronic nausea Chronic neck pain CKD (chronic kidney disease) (Unknown) Constipation Cranial somatic dysfunction CREST syndrome (Unknown) End stage renal failure on dialysis GERD (gastroesophageal reflux disease) (Unknown) Gout Hiatal hernia with gastroesophageal reflux disease and esophagitis Hyperkalemia Hyperlipemia (Unknown) Hypertension (Unknown) Hypotension Localized swelling of left forearm Nausea with vomiting Osteopenia (~04/2016) Osteoporosis (~04/2016) Pain of left great toe Raynaud's disease (Unknown) Reactive depression (situational) Segmental and somatic dysfunction of abdomen and other regions Segmental and somatic dysfunction of abdomen and other regions Segmental and somatic dysfunction of pelvic region Segmental and somatic dysfunction of rib cage Segmental and somatic dysfunction of sacral region Segmental and somatic dysfunction of thoracic region Somatic dysfunction of right lower extremity Upper extremity somatic dysfunction Warfarin anticoagulation Surgical History History of cataract removal with insertion of prosthetic lens History of rectal surgery Status post breast biopsy Status post hysterectomy Status post tonsillectomy and adenoidectomy Family History Father Congestive heart failure Hypertension Mother Myocardial infarction Social History household members: children Smoking Status: Never smoker alcohol intake: current Smoking Status: Never smoker alcohol intake frequency: holidays/special occasions only Substance Use Type: does not use Exam Narrative Exam Narrative: GENERAL: Alert and oriented x three, thin female in mild distress HEENT: Head normocephalic, atraumatic, EOMI, pupils reactive, face symmetric, moist mucous membranes NECK: Supple, full range of motion CARDIOVASCULAR: Regular rate and rhythm without murmurs, rubs or gallops. No JVD. No swelling bilateral lower extremities. RESPIRATORY: Breath sounds equal bilaterally, no wheezes rales or rhonchi. No tachypnea or accessory muscle use. ABDOMEN: Soft, nontender. Normoactive bowel sounds all 4 quadrants. No guarding or rebound, rigidity, no mass. : No CVA tenderness EXTREMITIES: Normal range of motion, no clubbing or edema. Neurovascularly intact. Patient has a 0.5 cm necrotic spot just underneath the toenail of the right great toe there is no warmth or erythema appreciated. There is no drainage. Seems localized does not like off easily in the skin or surrounding appears intact. Patient has full range of motion. Cap refill is less than 2 seconds in all 5 toes. She is equal dorsalis pedis pulses bilaterally. Normal range of motion. NEUROLOGICAL: Cranial nerves II through XII grossly intact. Moving all extremities SKIN: Warm, dry, no petechiae, no rashes or lesions. Initial Vital Signs Initial Vital Signs: Vital Signs Temperature 97.3 F L 11/11/22 12:20 Pulse Rate 60 11/11/22 12:20 Respiratory Rate 18 11/11/22 12:20 Blood Pressure 70/48 L 11/11/22 12:20 Pulse Oximetry 98 11/11/22 12:20 Oxygen Delivery Method Room Air 11/11/22 12:20 Course Orders Ordered: ED Orders 11/11/22 13:11 XR chest 1V Stat RT Consult Eval and Treat NOW 11/11/22 13:18 COVID19 -Nasal RAPID Stat 11/11/22 13:25 Complete Blood Count AUTO DIFF Stat Comprehensive Metabolic Panel Stat Lactate (Lactic Acid) Stat Lipase Stat PTT Partial Thromboplastin Cisco Stat Procalcitonin Stat Prothrombin Time INR Stat 11/11/22 13:33 Blood Culture Stat 11/11/22 13:43 EKG-12 Lead Stat 11/11/22 13:46 XR shoulder RT min 2V Stat 11/11/22 15:41 XR toe RT min 2V Stat Ondansetron HCl (Ondansetron 4 Mg/2 Ml Inj) 4 mg IV NOW PRN PRN Reason: Nausea And Vomiting Ondansetron HCl (Ondansetron 4 Mg Odt) 4 mg SL NOW PRN PRN Reason: Nausea And Vomiting Discontinued Medications Cephalexin HCl (Cephalexin 250 Mg Capsule) 500 mg PO NOW ONE Stop: 11/11/22 17:13 Last Admin: 11/11/22 17:20 Dose: 500 mg Sodium Chloride (Normal Saline 0.9%) 1,000 mls @ 1,000 mls/hr IV BOLUS ONE Stop: 11/11/22 14:10 Last Admin: 11/11/22 13:50 Dose: Not Given Documented By: CELE Sodium Chloride (Normal Saline 0.9%) 500 mls @ 1,000 mls/hr IV BOLUS ONE Stop: 11/11/22 13:47 Last Infusion: 11/11/22 14:23 Dose: 0 mls/hr Documented By: Admin: 11/11/22 13:23 Dose: 1,000 mls/hr Documented By: KRAIG Vital Signs Vital signs: Vital Signs - 8 hr 11/11/22 12:20 11/11/22 12:59 11/11/22 13:00 Temperature 97.3 F L Pulse Rate 60 60 Respiratory Rate 18 Blood Pressure 70/48 L 86/48 L Pulse Oximetry 98 100 Oxygen Delivery Method Room Air 11/11/22 13:00 11/11/22 13:05 11/11/22 13:05 Temperature Pulse Rate 75 78 Respiratory Rate Blood Pressure 87/49 L Pulse Oximetry 99 Oxygen Delivery Method 11/11/22 13:25 11/11/22 13:25 11/11/22 13:30 Temperature Pulse Rate 74 Respiratory Rate Blood Pressure 92/51 L 100/50 L Pulse Oximetry 97 Oxygen Delivery Method 11/11/22 13:30 11/11/22 13:45 11/11/22 13:45 Temperature Pulse Rate 87 67 Respiratory Rate Blood Pressure 91/46 L Pulse Oximetry 95 Oxygen Delivery Method 11/11/22 14:00 11/11/22 14:00 11/11/22 14:15 Temperature Pulse Rate 66 Respiratory Rate Blood Pressure 99/52 L 94/59 L Pulse Oximetry Oxygen Delivery Method 11/11/22 14:15 11/11/22 14:30 11/11/22 14:30 Temperature Pulse Rate 66 69 Respiratory Rate Blood Pressure 104/51 L Pulse Oximetry Oxygen Delivery Method 11/11/22 14:45 11/11/22 14:45 11/11/22 15:00 Temperature Pulse Rate 68 Respiratory Rate Blood Pressure 100/52 L 102/51 L Pulse Oximetry 97 Oxygen Delivery Method 11/11/22 15:00 11/11/22 15:15 11/11/22 15:15 Temperature Pulse Rate 67 75 Respiratory Rate Blood Pressure 96/50 L Pulse Oximetry 97 98 Oxygen Delivery Method 11/11/22 15:30 11/11/22 15:30 11/11/22 15:46 Temperature Pulse Rate 75 Respiratory Rate Blood Pressure 95/53 L 112/52 L Pulse Oximetry 98 Oxygen Delivery Method 11/11/22 15:46 11/11/22 16:00 11/11/22 16:00 Temperature Pulse Rate 77 79 Respiratory Rate Blood Pressure 102/51 L Pulse Oximetry 97 95 Oxygen Delivery Method 11/11/22 16:15 11/11/22 16:15 11/11/22 16:30 Temperature Pulse Rate 74 Respiratory Rate Blood Pressure 95/49 L 88/46 L Pulse Oximetry 99 Oxygen Delivery Method 11/11/22 16:30 11/11/22 16:38 11/11/22 16:38 Temperature Pulse Rate 75 79 Respiratory Rate Blood Pressure 96/48 L Pulse Oximetry 98 97 Oxygen Delivery Method 11/11/22 16:45 11/11/22 16:45 11/11/22 17:00 Temperature Pulse Rate 77 Respiratory Rate Blood Pressure 101/50 L 94/49 L Pulse Oximetry 98 Oxygen Delivery Method 11/11/22 17:00 11/11/22 17:15 11/11/22 17:15 Temperature Pulse Rate 75 75 Respiratory Rate Blood Pressure 100/49 L Pulse Oximetry 99 99 Oxygen Delivery Method MDM - Skin/Abscess/Foreign Bdy Lab Data 11/11/22 13:25 11/11/22 13:25 Labs: Lab Results 11/11/22 11/11/22 11/11/22 Range/Units 13:18 13:25 13:25 WBC 8.4 (4.5-11.0) X10^3/uL RBC 2.81 L (4.0-5.2) X10^6/uL Hgb 9.0 L (12.0-16.0) g/dL Hct 27.6 L (36-46) % MCV 98.1 (80-100) fL MCH 31.9 (26-34) PG MCHC 32.5 (30-36) % RDW 22.1 H (11.6-14.8) % Plt Count 168 (150-400) X10^3/uL Neut % (Auto) 82.7 H (50-75) % Lymph % (Auto) 6.2 L (25-40) % [place] % (Auto) 8.0 (3-14) % Eos % (Auto) 2.4 (2-4) % Baso % (Auto) 0.7 (0-2) % Neut # (Auto) 7000 (9257-8543) /uL Lymph # (Auto) 500 L (4396-3285) /uL [place] # (Auto) 700 (0-900) /uL Eos # (Auto) 200 (0-450) /uL Baso # (Auto) 100 (0-100) /uL RBC Morphology See below Anisocytosis 2+ H Ovalocytes 1+ H PT 27.5 H (10.1-12.7) SECONDS INR 2.4 H (0.9-1.3) APTT 38 H (26-36) SECONDS Sodium (137-145) mmol/L Potassium (3.4-5.1) mmol/L Chloride (98-107) mmol/L Carbon Dioxide (22-32) mmol/L BUN (7-17) mg/dL Creatinine (0.52-1.04) mg/dL Estimated GFR (>60) mL/min BUN/Creatinine Ratio (6-22) Glucose (80-110) mg/dL Lactate (0.7-2.1) mmol/L Calcium (8.4-10.2) mg/dL Total Bilirubin (0.2-1.3) mg/dL AST (14-36) IU/L ALT (<35) IU/L Alkaline Phosphatase (38-126) U/L Total Protein (6.3-8.2) g/dL Albumin (3.5-5.0) g/dL Globulin (1.7-4.1) g/dL Albumin/Globulin Ratio (1.0-2.8) Lipase (23-300) U/L Procalcitonin (<0.5) ng/mL SARS-CoV-2 (PCR) Negative (Negative) 11/11/22 11/11/22 Range/Units 13:25 13:25 WBC (4.5-11.0) X10^3/uL RBC (4.0-5.2) X10^6/uL Hgb (12.0-16.0) g/dL Hct (36-46) % MCV (80-100) fL MCH (26-34) PG MCHC (30-36) % RDW (11.6-14.8) % Plt Count (150-400) X10^3/uL Neut % (Auto) (50-75) % Lymph % (Auto) (25-40) % [place] % (Auto) (3-14) % Eos % (Auto) (2-4) % Baso % (Auto) (0-2) % Neut # (Auto) (3333-6684) /uL Lymph # (Auto) (7315-2305) /uL [place] # (Auto) (0-900) /uL Eos # (Auto) (0-450) /uL Baso # (Auto) (0-100) /uL RBC Morphology Anisocytosis Ovalocytes PT (10.1-12.7) SECONDS INR (0.9-1.3) APTT (26-36) SECONDS Sodium 134 L (137-145) mmol/L Potassium 3.0 L (3.4-5.1) mmol/L Chloride 95 L (98-107) mmol/L Carbon Dioxide 27 (22-32) mmol/L BUN 49 H (7-17) mg/dL Creatinine 4.80 H (0.52-1.04) mg/dL Estimated GFR 9 L (>60) mL/min BUN/Creatinine Ratio 10.2 (6-22) Glucose 91 (80-110) mg/dL Lactate 1.9 (0.7-2.1) mmol/L Calcium 7.8 L (8.4-10.2) mg/dL Total Bilirubin 0.9 (0.2-1.3) mg/dL AST 28 (14-36) IU/L ALT 19 (<35) IU/L Alkaline Phosphatase 89 (38-126) U/L Total Protein 5.0 L (6.3-8.2) g/dL Albumin 2.6 L (3.5-5.0) g/dL Globulin 2.4 (1.7-4.1) g/dL Albumin/Globulin Ratio 1.1 (1.0-2.8) Lipase 29 (23-300) U/L Procalcitonin 1.02 H (<0.5) ng/mL SARS-CoV-2 (PCR) (Negative) Imaging Data Extremity x-ray #1: Radiologist's Impression: [address] [address] XRay Report Signed Patient: Yanni Maurice MR#: [id number] : 1940 Acct:[id number] Age/Sex: 82 / F Date of Service: 11/11/22 Loc: ED Accession Number: [id number] ?? Procedure: XR toe RT min 2V Ordering Provider: Lo Hampton D.O. PROCEDURE:? XR TOE RT MIN 2V ? INDICATIONS:? great toe, small wound distal toe ? TECHNIQUE:? 3 views of the 1st toe(s) acquired.? ? COMPARISON:? None. ? FINDINGS:? ? Bones:? No fractures or dislocations.? No suspicious bony lesions.? ? Soft tissues:? No suspicious soft tissue densities.? Mild soft tissue swelling.? ? IMPRESSION:? Soft tissue swelling without fracture or erosion identified.? ? ? Dictated by: Todd Terry M.D. on 11/11/2022 at 15:45 ? ? Approved by: Todd Terry M.D. on 11/11/2022 at 15:46?? Extremity x-ray #2: Radiologist's Impression: [address] [address] XRay Report Signed Patient: Yanni Maurice MR#: [id number] : 1940 Acct:[id number] Age/Sex: 82 / F Date of Service: 11/11/22 Loc: Accession Number: [id number] ?? Procedure: XR shoulder RT min 2V Ordering Provider: Lo Hampton D.O. PROCEDURE:? XR SHOULDER RT MIN 2V ? INDICATIONS:? fall/pain since 11/02 ? TECHNIQUE:? To views of the shoulder were acquired.? ? COMPARISON:? None. ? FINDINGS:? ? Bones:? No fractures or dislocations.? No suspicious bony lesions.? Visualized ribs appear intact.? Calcific enthesophytes of the proximal humerus. ? Soft tissues:? No suspicious soft tissue calcifications.? ? IMPRESSION:? No acute fracture or osseous malalignment. ? ? Dictated by: Todd Terry M.D. on 11/11/2022 at 13:34 ? ? Approved by: Todd Terry M.D. on 11/11/2022 at 13:34?? Chest x-ray: Radiologist's Impression: Close Toe X-Ray (Signed) Todd Terry - 11/11/22 Shoulder X-Ray (Signed) Todd Terry - 11/11/22 Chest X-Ray (Signed) Todd Terry - 11/11/22 DI Result CC 11/02/22 Oncology Outside DI 11/02/22 Brain MRI (Signed) Josué Faulkner - 10/18/[address] (Signed) Adolph Jimenez - 10/18/22 PET, Tumor Imaging Skull-Mid Thigh (Signed) LemusNhanshweta - 08/23/22 Chest X-Ray (Signed) Erinn Barnard - 08/02/[address] (Signed) Trever Vergara - 07/31/22 Mammogram Diagnostic (Signed) Call,Fritz - 05/23/22 Chest/Abdomen/Pelvis CT (Signed) Mandi Choeah - 02/21/22 Chest/Abdomen/Pelvis CT (Signed) Lona Lemus - 01/26/22 Telemetry Strips 07/04/21 Outside DI 06/20/21 Breast Biopsy Ultrasound (Signed) Abundio Anaya - 05/26/21 Mammogram Diagnostic (Signed) Abundio Anaya - 05/26/21 Breast Axilla Core Biopsy US (Addendum) Abundio Anaya - 05/26/21 Breast Ultrasound (Signed) Vini Walker - 05/09/21 Mammogram Diagnostic (Signed) Vini Walker - 05/09/21 Hand X-Ray (Signed) Adolph Bhatti - 04/07/21 Finger X-Ray (Signed) Eileen Stone - 03/01/21 Ribs X-Ray (Signed) Call,Fritz - 01/26/21 Abdomen/Pelvis CT (Signed) Josué Faulkner - 11/16/20 Telemetry Strips 11/16/20 EKG Rpt. 11/16/20 Hand MRI (Signed) Adolph Bhatti - 10/28/20 Finger X-Ray (Signed) Abundio Anaya - 10/21/20 Launch?[address] [address] XRay Report Signed Patient: Yanni Maurice MR#: [id number] : 1940 Acct:[id number] Age/Sex: 82 / F Date of Service: 11/11/22 Loc: ED Accession Number: [id number] ?? Procedure: XR chest 1V Ordering Provider: Lo Hampton D.O. PROCEDURE:? XR CHEST 1V ? INDICATIONS:? suspected sepsis ? TECHNIQUE:? One view of the chest was acquired.? ? COMPARISON:? [facility], CR, XR CHEST 1V, 08/02/2022, 13:55. ? FINDINGS:? ? Surgical changes and devices:? Right chest port with tip in the right atrium..? ? Lungs and pleura:? Lungs are clear.? No pleural effusions or pneumothorax.? ? Mediastinum:? Mediastinal contours appear normal.? Heart size is normal.? Tortuous aorta ? Bones and chest wall:? No suspicious bony lesions.? Overlying soft tissues appear unremarkable.? ? IMPRESSION:? No acute cardiopulmonary findings. ? ? Dictated by: Todd Terry M.D. on 11/11/2022 at 13:32 ? ? Approved by: Todd Terry M.D. on 11/11/2022 at 13:33?? ECG Data Attestation: I personally reviewed and interpreted this ECG as follows: Interpretation: Sinus rhythm left axis deviation, left bundle-branch block. Rate of 67 SC 166 QRS 152 QT 434. Patient has prior from 10/18/2022 which appears similar. 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 She does not have let us surrounding warmth, erythema or spreading changes of cellulitis. She is localized wound. Area is slightly tender there is no drainage. Labs show appropriate CBC INR is 2 point far she is therapeutic, CMP shows creatinine appears to be similar to her baseline with potassium sodium appropriate level. Lactate negative. Procalcitonin is elevated but can sometimes be elevated at patient with chronic renal failure. Patient's blood pressure was low her normal is 90-100 systolic she was as low as 70. Her daughter states she is sometimes slow but was given hot find her to be cc bolus and since then has maintained. She does not have any other signs of sepsis at this time. Cultures were sent. Discussed with patient I would like her to follow up with either wound care or Podiatry, she has seen Dr. Mcguire with Podiatry before. Referral was also sent for wound care. She was started on oral antibiotic with strict return precautions. Patient will continue with the Keflex at 500 mg twice daily based on peritoneal dialysis dosing. Imaging does not show obvious changes to the bone and the location of her wound makes me think less likely to be an osteomyelitis, she also had chest x-ray and shoulder x-ray she would had a recent fall where she sort of slid from her bed. These are negative for fracture. She is not hit her head or had any other injuries so no further imaging was obtained. Discharge Plan Departure Patient Disposition: Home Clinical Impression: Infection of toe Activity Restrictions/Additional Instructions: Please follow-up with either Podiatry or wound care. Call to set up an appointment Sunday. Take antibiotics until completely gone. Take antibiotic 1 tablet every 12 hours. [facility] Wound Care: Keep wound(s) clean and dry. Wash daily with soap and water only. Do not use over the counter products (alcohol or peroxide)on the wounds unless instructed by a physician. If wound condition worsens (increased/expanding redness, developing fluid blisters, or worsening pain), either contact your doctor for an urgent re-assessment , or return to the Emergency Department. Return to the Emergency Department for any new or worsening symptoms. Return if fever greater than 100.4 Fahrenheit, increased swelling, increasing pain or worsening symptoms such as increased discharge or spreading redness. Prescriptions: New cephalexin 500 mg capsule 500 mg PO BID Qty: 20 0RF oxycodone 5 mg tablet 5 mg PO QID PRN (Reason: pain) Qty: 10 0RF No Action sildenafil (pulm.hypertension) 20 mg tablet 20 mg PO TID Qty: 270 3RF pentoxifylline 400 mg tablet extended release See Rx Instructions .ROUTE .COMPLEX Qty: 270 0RF Dose Instruction: take 1 tablet by mouth three times a day Rx Instructions: take 1 tablet by mouth three times a day metoprolol tartrate 25 mg tablet See Rx Instructions .ROUTE .COMPLEX Qty: 180 0RF Dose Instruction: take 1 tablet by mouth twice a day Patient Comments: pt taking 12.5 mg twice per day Rx Instructions: take 1 tablet by mouth twice a day warfarin 1 mg tablet See Rx Instructions .ROUTE .COMPLEX Qty: 135 3RF Dose Instruction: take 1 AND 1/2 tablet by mouth once daily Rx Instructions: take 1.5mg by mouth once daily ondansetron 4 mg tablet,disintegrating 4 mg PO Q8H PRN (Reason: nausea and vomiting) Qty: 30 3RF alprazolam 0.25 mg tablet See Rx Instructions .ROUTE .COMPLEX Qty: 60 5RF Rx Instructions: Take 1/2 to 1 tablet by mouth 2 times daily as needed for anxiety atorvastatin 10 mg tablet 10 mg PO BEDTIME Qty: 90 3RF lansoprazole [Prevacid] 15 mg capsule,delayed release(DR/EC) 15 mg PO BID sennosides [senna] 8.6 mg tablet 8.6 mg PO BID B complex-vitamin C-folic acid 1 tab PO DAILY Probiotic 1 cap PO BID potassium chloride 20 mEq tablet extended release 20 meq PO BID Qty: 6 0RF acetaminophen 325 mg Tablet 325 mg PO Q4H PRN (Reason: PAIN OR FEVER) diphenhydramine HCl 25 mg Capsule 25 mg PO PRN PRN (Reason: Allergy Symptoms) sevelamer HCl 800 mg Tablet 800 mg PO TID allopurinol 100 mg Tablet 100 mg DAILY Referrals: Jonna Mcguire DPM [Physician] - Garrett Marquez MD [Physician] - Nishant Lanza DO [Primary Care Provider] - Stand Alone Forms: Patient Portal/API
--- NOTE | 2022-11-11 15:41 | DI.RAD.S_ITS ---
PROCEDURE: XR TOE RT MIN 2V INDICATIONS: great toe, small wound distal toe TECHNIQUE: 3 views of the 1st toe(s) acquired. COMPARISON: None. FINDINGS: Bones: No fractures or dislocations. No suspicious bony lesions. Soft tissues: No suspicious soft tissue densities. Mild soft tissue swelling. IMPRESSION: Soft tissue swelling without fracture or erosion identified. Dictated by: Todd Terry M.D. on 11/11/2022 at 15:45 Approved by: Todd Terry M.D. on 11/11/2022 at 15:46
[2022-11-11] MEDS: cephALEXin 250 MG CAPSULE 500 MG PO (17:20)
== END 2022-11-11 17:32 | disposition home or self-care (01) ==
PROVIDERS: Emergency Provider Emergency Medicine; Family Provider Family Medicine; PCP Family Medicine
DX: L08.9 Local infection of the skin and subcutaneous tissue, unspecified (principal); R79.89 Other specified abnormal findings of blood chemistry; N18.9 Chronic kidney disease, unspecified; Z20.822 Contact with and (suspected) exposure to COVID-19
CPT/HCPCS: 36415; 71045; 73030; 73660; 80053; 83605; 83690; 84145; 85025; 85610; 85730; 87040; 87635; 93005; 99284; C9803

== ENCOUNTER → 2022-11-24 10:58 | Outpatient (CLI) | payer MEDICARE, OTHER, SELFPAY ==
[2021-08-04 14:29] VITALS: BMI 21.7
== END ==
PROVIDERS: Family Provider Family Medicine; PCP Family Medicine; Referring Provider Emergency Medicine; Visit Provider Nurse Practitioner Family
DX: L97.512 Non-pressure chronic ulcer of other part of right foot with fat layer exposed (principal); L97.411 Non-pressure chronic ulcer of right heel and midfoot limited to breakdown of skin; L97.421 Non-pressure chronic ulcer of left heel and midfoot limited to breakdown of skin; M34.1 CR(E)ST syndrome; I73.00 Raynaud's syndrome without gangrene
CPT/HCPCS: 97597; 99213; 99214

== ENCOUNTER → 2022-12-01 14:16 | Outpatient (CLI) | payer MEDICARE, OTHER, SELFPAY ==
[2021-08-04 14:29] VITALS: BMI 21.7
== END ==
PROVIDERS: Family Provider Family Medicine; PCP Family Medicine; Referring Provider Family Medicine; Visit Provider Nurse Practitioner Family
DX: S91.101A Unspecified open wound of right great toe without damage to nail, initial encounter (principal); S91.301A Unspecified open wound, right foot, initial encounter; S91.302A Unspecified open wound, left foot, initial encounter; I73.00 Raynaud's syndrome without gangrene; I95.2 Hypotension due to drugs; M34.1 CR(E)ST syndrome
CPT/HCPCS: 99214

== ENCOUNTER → 2022-12-08 14:13 | Outpatient (CLI) | payer MEDICARE, OTHER, SELFPAY ==
[2021-08-04 14:29] VITALS: BMI 21.7
== END ==
PROVIDERS: Family Provider Family Medicine; PCP Family Medicine; Referring Provider Family Medicine; Visit Provider Nurse Practitioner Family
DX: S91.101A Unspecified open wound of right great toe without damage to nail, initial encounter (principal); S91.301A Unspecified open wound, right foot, initial encounter; S91.302A Unspecified open wound, left foot, initial encounter; M34.1 CR(E)ST syndrome; I73.00 Raynaud's syndrome without gangrene; I95.2 Hypotension due to drugs
CPT/HCPCS: 97597; 99214

== ENCOUNTER → 2022-12-14 09:42 | Outpatient (CLI) | payer MEDICARE, OTHER, SELFPAY ==
[2021-08-04 14:29] VITALS: BMI 21.7
== END ==
PROVIDERS: Family Provider Family Medicine; PCP Family Medicine; Referring Provider Family Medicine; Visit Provider Surgery
DX: L59.8 Other specified disorders of the skin and subcutaneous tissue related to radiation (principal); S91.101A Unspecified open wound of right great toe without damage to nail, initial encounter; S91.301A Unspecified open wound, right foot, initial encounter; S91.302A Unspecified open wound, left foot, initial encounter; M34.1 CR(E)ST syndrome; I73.00 Raynaud's syndrome without gangrene
CPT/HCPCS: 93010; 99213; 99214

== ENCOUNTER 2022-12-14 10:22 | Inpatient (IN) | payer MEDICARE, OTHER, SELFPAY ==
[2021-08-04 14:29] VITALS: BMI 21.7
[2022-12-14] VITALS (62 sets, daily range): BP systolic 70–132; BP diastolic 38–65; PULSE 62–130; RESP 10–29; TEMP 36.4; O2SAT 91–99; BMI 19.4
--- NOTE | 2022-12-14 11:06 | DI.RAD.S_ITS ---
PROCEDURE: XR CHEST 1V INDICATIONS: altered mental status TECHNIQUE: One view of the chest was acquired. COMPARISON: [facility], CR, XR CHEST 1V, 11/11/2022, 13:46. FINDINGS: Surgical changes and devices: Right port appears well position with the tip in the SVC. Lungs and pleura: Lungs are clear. No pleural effusions or pneumothorax. Interstitial prominence is unchanged compared to the prior study and is likely chronic. Mediastinum: Mediastinal contours appear normal. Heart size is normal. Bones and chest wall: No suspicious bony lesions. Overlying soft tissues appear unremarkable. IMPRESSION: No acute abnormality Dictated by: Vini Walker M.D. on 12/14/2022 at 11:55 Approved by: Vini Walker M.D. on 12/14/2022 at 11:57
--- NOTE | 2022-12-14 11:11 | PC.NURSE ---
Patient and daughter, at the bedside, state pt normally has low BP and low O2 sat. Pt has Reynauds so fingers always very cold, sat monitor is on the ear. Pt warmed in blankets
[2022-12-14 11:17] LABS: Add Manual Diff / Slide Review NO; Basophils Absolute Auto 100 /uL (0-100); Basophils Percent Auto 1.2 % (0-2); Eosinophils Absolute Auto 100 /uL (0-450); Eosinophils Percent Auto 0.9 % (2-4); Hematocrit 31.2 % (36-46); Hemoglobin 10.2 g/dL (12.0-16.0); Lymphocytes Absolute Auto 200 /uL (1100-4500); Lymphocytes Percent Auto 2.1 % (25-40); Mean Corpuscular HGB Conc 32.8 % (30-36); Mean Corpuscular Hemoglobin 31.8 PG (26-34); Monocytes Absolute Auto 500 /uL (0-900); Monocytes Percent Auto 5.1 % (3-14); Neutrophils Absolute Auto 8600 /uL (1500-7000); Neutrophils Percent Auto 90.7 % (50-75); Platelet Count 213 X10^3/uL (150-400); Red Blood Cell Count 3.21 X10^6/uL (4.0-5.2); Red Cell Distribution Width 18.5 % (11.6-14.8); White Blood Cell Count 9.5 X10^3/uL (4.5-11.0)
[2022-12-14 11:24] LABS: Ammonia (NH3) < 9 umol/L (9-30)
[2022-12-14 11:25] LABS: Alanine Aminotransferase 18 IU/L (<35); Albumin 2.3 g/dL (3.5-5.0); Alkaline Phosphatase 104 U/L (38-126); Aspartate Aminotransferase 31 IU/L (14-36); BUN Creatinine Ratio 11.9 (6-22); Bilirubin Total 0.6 mg/dL (0.2-1.3); Blood Urea Nitrogen 56 mg/dL (7-17); Calcium 7.4 mg/dL (8.4-10.2); Carbon Dioxide 27 mmol/L (22-32); Chloride 91 mmol/L (98-107); Estimated Glomerular Filt Rate 9 mL/min (>60); Globulin 2.4 g/dL (1.7-4.1); Glucose 93 mg/dL (80-110); HEMOLYSIS < 15 (0-50); Potassium 3.4 mmol/L (3.4-5.1); Sodium 127 mmol/L (137-145); Total Protein 4.7 g/dL (6.3-8.2)
[2022-12-14 12:04] LABS: Lactate (Lactic Acid) 1.3 mmol/L (0.7-2.1)
--- NOTE | 2022-12-14 12:26 | ED.NAVMDI ---
HPI - Nausea/Vomiting/Diarrhea <Lo Hampton, DO - Last Filed: 12/14/22 19:51> General Chief complaint: Nausea/Vomiting/Diarrhea Stated complaint: dehydration, hallucinations, confusion Time Seen by Provider: 12/14/22 11:50 Source: patient, family, RN notes reviewed and old records reviewed History of Present Illness HPI Narrative: This is an 82-year-old female with end-stage renal disease on daily peritoneal dialysis, spindle cell carcinoma biopsy, atrial fibrillation on warfarin, gout dyslipidemia, hypertension, CREST syndrome. Patient was sent from [facility] today for having episodes of hallucinations and being confused patient states she does sometimes have episodes where she sees people who are not really there. She states it has been going on for little bit she is not always sure if they are real or not she thinks a couple days but on and off for a few weeks. She denies fevers, no chills, no headache, no chest pain or shortness of breath she occasionally has abdominal cramps but denies any abdominal pain. She states she is been constipated but had a bowel movement recently. She states she was very constipated when taking codeine her last dose was 2 days ago. She is unsure if the codeine correlates with when she is having episodes of hallucinations. She states she is taking it because she has pain in her toes from wounds. She notes she vomited in the last 2 days, she does not have any nausea before she throws up. She denies any dysuria, urgency or frequency. She does make some urine but not regularly. She does do regular peritoneal dialysis she does not think she denies have any missed dialysis. She states surgeries include her peritoneal dialysis tube, hysterectomy, cholecystectomy, she states her only allergies are doxycycline. She denies tobacco, alcohol or illicit. She lives at home her daughter assists her as a caregiver. Dr. Hess is her primary care. Patient is noted to be hypotensive in the 90s which she states is typical for her. Dr. Leone is her certified medical records coder. Related Data Allergies Allergy/AdvReac Type Severity Reaction Status Date / Time carrot [CARROT] Allergy Severe EYES SWELL Verified 12/15/22 09:57 cephalexin [From Keflex] AdvReac Severe ITCHING Verified 12/15/22 09:57 clindamycin [CLINDAMYCIN] AdvReac Severe DIARRHEA Verified 12/15/22 09:57 doxycycline AdvReac Severe Made her Verified 12/15/22 09:57 very nauseous/affected appetite Review of Systems <Lo Hampton DO - Last Filed: 12/14/22 19:51> Review of Systems ROS Unobtainable: All systems reviewed & are unremarkable except as noted in HPI and below Patient History <Lo Hampton DO - Last Filed: 12/14/22 19:51> Medical History Anxiety about health Back stiffness Balance problem Breast cancer in female Cervical somatic dysfunction Chronic nausea Chronic neck pain CKD (chronic kidney disease) (Unknown) Constipation Cranial somatic dysfunction CREST syndrome (Unknown) End stage renal failure on dialysis GERD (gastroesophageal reflux disease) (Unknown) Gout Hiatal hernia with gastroesophageal reflux disease and esophagitis Hyperkalemia Hyperlipemia (Unknown) Hypertension (Unknown) Hypotension Localized swelling of left forearm Nausea with vomiting Osteopenia (~04/2016) Osteoporosis (~04/2016) Pain of left great toe Raynaud's disease (Unknown) Reactive depression (situational) Segmental and somatic dysfunction of abdomen and other regions Segmental and somatic dysfunction of abdomen and other regions Segmental and somatic dysfunction of pelvic region Segmental and somatic dysfunction of rib cage Segmental and somatic dysfunction of sacral region Segmental and somatic dysfunction of thoracic region Somatic dysfunction of right lower extremity Upper extremity somatic dysfunction Warfarin anticoagulation Surgical History History of cataract removal with insertion of prosthetic lens History of rectal surgery Status post breast biopsy Status post hysterectomy Status post tonsillectomy and adenoidectomy Family History Father Congestive heart failure Hypertension Mother Myocardial infarction Social History household members: children Smoking Status: Never smoker alcohol intake: current Smoking Status: Never smoker alcohol intake frequency: holidays/special occasions only Substance Use Type: does not use Exam <Lo Hampton DO - Last Filed: 12/14/22 19:51> Narrative Exam Narrative: GEN: Thin elderly female, alert and oriented, patient appears to be in mild distress. Patient is conversant and appropriate based on sharing medical history HEENT: Atraumatic, pupils are equal round reactive to light, extraocular movements are intact, nares are clear, TMs are clear with no fluid, there is no conjunctival pallor. Throat is clear without any exudates, erythema, tonsillar enlargement or uvular deviation, no facial droop. HEART: Regular rate and rhythm without murmur, clicks, rubs. pulses are equal in upper and lower extremities LUNGS:Lungs clear to auscultation, no wheezes, rales, crackles, chest moves symmetrically, no tachypnea or accessory muscle use. ABD:bowel sounds normal, soft, non-tender, no guarding, rebound, rigidity, no masses noted, no hepatosplenomegaly, catheter opening appears clean dry and intact. :No CVA tenderness MSCL: Non-tender, no muscle atrophy, muscles strength 5/5 upper and lower extremities, full range of motion, normal gait NEURO:CN 2-12 intact, sensation normal, reflexes 2/4 upper and lower extremities. finger nose finger test normal, patient has mild tremor right upper extremity. SKIN: No rash, erythema or other skin changes Initial Vital Signs Initial Vital Signs: Vital Signs Blood Pressure 91/38 L 12/14/22 10:30 <Veronica Billings DO - Last Filed: 12/17/22 08:09> Initial Vital Signs Initial Vital Signs: Vital Signs Blood Pressure 91/38 L 12/14/22 10:30 <Todd Rivera MD - Last Filed: 12/31/22 22:15> Initial Vital Signs Initial Vital Signs: Vital Signs Blood Pressure 91/38 L 12/14/22 10:30 Course <Lo Hampton DO - Last Filed: 12/14/22 19:51> Orders Ordered: Discontinued Medications Allopurinol (Allopurinol 100 Mg Tablet) 100 mg PO DAILY [facility] Last Admin: 12/15/22 12:05 Dose: 100 mg Documented By: ANDREW Alprazolam (Alprazolam 0.25 Mg Tablet) 0.25 mg PO NOW ONE Stop: 12/14/22 21:48 Last Admin: 12/14/22 21:55 Dose: Not Given Documented By: ARELY Atorvastatin Calcium (Atorvastatin 20 Mg Tablet) 10 mg PO BEDTIME [facility] Haloperidol (Haloperidol 5 Mg/Ml Vial) 1 mg IV NOW ONE Stop: 12/14/22 23:53 Last Admin: 12/15/22 00:01 Dose: 1 mg Documented By: ARELY Heparin Sodium (Porcine) (Heparin 500 Unit/5 Ml Port Flush) 500 unit IV PRN PRN PRN Reason: Flush Last Admin: 12/18/22 22:58 Dose: 500 unit Documented By: JOSEFINA Levofloxacin (Levaquin) 750 mg in 150 mls @ 100 mls/hr IV NOW ONE Stop: 12/14/22 16:14 Last Infusion: 12/14/22 17:23 Dose: 0 mls/hr Documented By: Admin: 12/14/22 15:00 Dose: 100 mls/hr Documented By: ROEL Sodium Chloride (Normal Saline 0.9%) 250 mls @ 1,000 mls/hr IV BOLUS ONE Stop: 12/14/22 15:00 Last Infusion: 12/14/22 16:00 Dose: 0 mls/hr Documented By: Admin: 12/14/22 15:00 Dose: 1,000 mls/hr Documented By: ROEL Sodium Chloride (Normal Saline 0.9%) 500 mls @ 1,000 mls/hr IV BOLUS ONE Stop: 12/14/22 21:36 Last Infusion: 12/14/22 22:05 Dose: 0 mls/hr Documented By: Admin: 12/14/22 21:32 Dose: 1,000 mls/hr Documented By: ARELY Dextrose (D10w) 1,000 mls @ 100 mls/hr IV CONT [facility] Last Infusion: 12/15/22 15:07 Dose: 0 mls/hr Documented By: Admin: 12/15/22 08:59 Dose: 100 mls/hr Documented By: Infusion: 12/15/22 08:05 Dose: 100 mls/hr Documented By: Admin: 12/14/22 22:05 Dose: 100 mls/hr Documented By: ARELY Dextrose/Sodium Chloride (Dextrose 5%-0.9% Ns) 1,000 mls @ 84 mls/hr IV CONT [facility] Last Admin: 12/15/22 17:42 Dose: Not Given Documented By: ANDREW Sodium Chloride (Normal Saline 0.9%) 500 mls @ 1,000 mls/hr IV BOLUS ONE Stop: 12/15/22 16:58 Last Admin: 12/15/22 17:42 Dose: Not Given Documented By: ANDREW Amiodarone HCl/Dextrose (Nexterone) 150 mg in 100 mls @ 600 mls/hr IV NOW ONE; Protocol Stop: 12/15/22 16:51 Last Infusion: 12/15/22 16:55 Dose: 0 mls/hr Documented By: Admin: 12/15/22 16:42 Dose: 600 mls/hr Documented By: ANDREW Amiodarone HCl/Dextrose (Nexterone) 360 mg in 200 mls @ 33.333 mls/hr IV NOW ONE; Protocol Stop: 12/15/22 22:42 Last Admin: 12/15/22 17:43 Dose: Not Given Documented By: ANDREW Lactobacillus Acidophilus (Lactobacillus Acidophilus Tablet) 1 each PO DAILY [facility] Lorazepam (Lorazepam 2 Mg/Ml Oral Areli) 1 mg PO Q1HR PRN PRN Reason: Anxiety Last Admin: 12/19/22 12:36 Dose: 1 mg Documented By: Admin: 12/19/22 08:42 Dose: 1 mg Documented By: Admin: 12/18/22 23:03 Dose: 1 mg Documented By: Admin: 12/18/22 14:58 Dose: 1 mg Documented By: Admin: 12/18/22 07:40 Dose: 1 mg Documented By: Admin: 12/17/22 22:32 Dose: 1 mg Documented By: Admin: 12/17/22 06:43 Dose: 1 mg Documented By: Admin: 12/16/22 21:56 Dose: 1 mg Documented By: Admin: 12/16/22 00:17 Dose: 1 mg Documented By: GUDELIA Metoprolol Succinate (Metoprolol Er 25 Mg Tablet) 25 mg PO DAILY [facility] Metoprolol Succinate (Metoprolol Er 25 Mg Tablet) 25 mg PO DAILY [facility] Last Admin: 12/15/22 09:45 Dose: 25 mg Documented By: Admin: 12/15/22 05:06 Dose: 25 mg Documented By: ARELY Metoprolol Tartrate (Metoprolol Tartrate 5 Mg/5 Ml Inj) 5 mg IV NOW ONE Stop: 12/15/22 00:26 Last Admin: 12/15/22 00:29 Dose: 5 mg Documented By: ARELY Metoprolol Tartrate (Metoprolol Ir 25 Mg Tablet) 12.5 mg PO BID [facility] Metoprolol Tartrate (Metoprolol Ir 25 Mg Tablet) 12.5 mg PO BID [facility] Morphine Sulfate (Morphine 2 Mg/Ml Inj) 2 mg IV Q30MIN PRN PRN Reason: Pain/Dyspnea Last Admin: 12/18/22 22:57 Dose: 2 mg Documented By: Admin: 12/18/22 14:08 Dose: 2 mg Documented By: Admin: 12/17/22 22:25 Dose: 2 mg Documented By: Admin: 12/17/22 06:43 Dose: 2 mg Documented By: Admin: 12/16/22 21:56 Dose: 2 mg Documented By: Admin: 12/16/22 00:07 Dose: 2 mg Documented By: Admin: 12/15/22 18:13 Dose: 2 mg Documented By: TRAN Ondansetron HCl (Ondansetron 4 Mg Odt) 4 mg SL Q8HR PRN PRN Reason: Nausea And Vomiting Stop: 12/18/22 10:43 Ondansetron HCl (Ondansetron 4 Mg/2 Ml Inj) 4 mg IV Q8HR PRN PRN Reason: Nausea And Vomiting Oxycodone/Acetaminophen (Oxycodone/Acetaminophen 5/325 Tablet) 1 tab PO NOW ONE Stop: 12/15/22 08:47 Last Admin: 12/15/22 09:00 Dose: 1 tab Documented By: AUBRIE Phytonadione (Phytonadione (Vit K1) 5 Mg Tablet) 10 mg PO NOW ONE Stop: 12/14/22 22:57 Last Admin: 12/14/22 23:05 Dose: 10 mg Documented By: ARELY Quetiapine Fumarate (Quetiapine 100 Mg Tablet) 25 mg PO NOW ONE Stop: 12/15/22 09:47 Last Admin: 12/15/22 10:25 Dose: 25 mg Documented By: AUBRIE Quetiapine Fumarate (Quetiapine 25 Mg Tablet) 25 mg PO NOW ONE Stop: 12/15/22 12:03 Last Admin: 12/15/22 12:06 Dose: 25 mg Documented By: ANDREW Scopolamine (Scopolamine 1 Patch) 1 patch TOP Q72H PRN PRN Reason: Secretions Last Admin: 12/15/22 18:39 Dose: 1 patch Documented By: TRAN Sennosides (Sennosides 8.6 Mg Tablet) 8.6 mg PO BID PRN PRN Reason: Constipation Sodium Chloride (Sodium Chloride 0.9% Flush) 10 ml IV PRN PRN PRN Reason: Flush Last Admin: 12/18/22 22:58 Dose: 10 ml Documented By: JOSEFINA Vital Signs Vital signs: Vital Signs - 8 hr 12/15/22 09:30 12/15/22 10:00 12/15/22 10:30 Pulse Rate 113 H 106 H Respiratory Rate 25 H 26 H Blood Pressure 106/60 Pulse Oximetry Oxygen Delivery Method Oxygen Flow Rate 12/15/22 10:30 12/15/22 11:00 12/15/22 11:30 Pulse Rate 104 H 102 H 108 H Respiratory Rate 27 H 25 H 21 Blood Pressure Pulse Oximetry 93 Oxygen Delivery Method Room Air Oxygen Flow Rate 12/15/22 12:00 12/15/22 12:30 12/15/22 13:00 Pulse Rate 103 H 104 H 115 H Respiratory Rate 24 20 23 Blood Pressure Pulse Oximetry Oxygen Delivery Method Oxygen Flow Rate 12/15/22 13:30 12/15/22 14:00 12/15/22 14:15 Pulse Rate 104 H 105 H 103 H Respiratory Rate 21 16 19 Blood Pressure Pulse Oximetry Oxygen Delivery Method Oxygen Flow Rate 12/15/22 14:30 12/15/22 14:45 12/15/22 15:00 Pulse Rate 108 H 110 H 104 H Respiratory Rate 14 16 15 Blood Pressure Pulse Oximetry Oxygen Delivery Method Oxygen Flow Rate 12/15/22 15:15 12/15/22 15:30 12/15/22 15:45 Pulse Rate 109 H 98 H 99 H Respiratory Rate 15 19 16 Blood Pressure Pulse Oximetry Oxygen Delivery Method Oxygen Flow Rate 12/15/22 16:00 12/15/22 16:15 12/15/22 16:28 Pulse Rate 96 H 103 H 100 H Respiratory Rate 13 16 19 Blood Pressure Pulse Oximetry Oxygen Delivery Method Oxygen Flow Rate 12/15/22 16:28 12/15/22 16:30 12/15/22 16:30 Pulse Rate 96 H Respiratory Rate 12 Blood Pressure 77/45 L 73/42 L Pulse Oximetry Oxygen Delivery Method Oxygen Flow Rate 12/15/22 16:31 12/15/22 16:31 12/15/22 16:35 Pulse Rate 95 H 115 H Respiratory Rate 13 Blood Pressure 74/40 L Pulse Oximetry 88 L Oxygen Delivery Method Oxygen Flow Rate 12/15/22 16:35 12/15/22 16:39 12/15/22 16:39 Pulse Rate 98 H Respiratory Rate 16 Blood Pressure 78/50 L 86/49 L Pulse Oximetry 84 L Oxygen Delivery Method Oxygen Flow Rate 12/15/22 16:40 12/15/22 16:42 12/15/22 16:42 Pulse Rate 94 H 97 H Respiratory Rate 8 L 19 Blood Pressure 86/48 L Pulse Oximetry 84 L Oxygen Delivery Method Oxygen Flow Rate 12/15/22 16:44 12/15/22 16:45 12/15/22 16:45 Pulse Rate 96 H 86 Respiratory Rate 11 L 15 Blood Pressure 71/45 L Pulse Oximetry Oxygen Delivery Method Oxygen Flow Rate 12/15/22 16:46 12/15/22 16:48 12/15/22 16:49 Pulse Rate 85 89 Respiratory Rate 11 L 14 Blood Pressure 80/43 L Pulse Oximetry 82 L Oxygen Delivery Method Oxygen Flow Rate 12/15/22 16:49 12/15/22 16:50 12/15/22 16:51 Pulse Rate 81 84 87 Respiratory Rate 9 L 7 L 13 Blood Pressure Pulse Oximetry 80 L 94 Oxygen Delivery Method Oxygen Flow Rate 12/15/22 16:51 12/15/22 16:52 12/15/22 16:54 Pulse Rate 87 Respiratory Rate 7 L Blood Pressure 81/51 L 70/34 L Pulse Oximetry 88 L Oxygen Delivery Method Oxygen Flow Rate 12/15/22 16:54 12/15/22 16:56 12/15/22 16:57 Pulse Rate 78 85 81 Respiratory Rate 14 14 15 Blood Pressure Pulse Oximetry 78 L 79 L Oxygen Delivery Method Oxygen Flow Rate 12/15/22 16:57 12/15/22 16:58 12/15/22 17:00 Pulse Rate 82 Respiratory Rate 12 Blood Pressure 61/38 L 62/40 L Pulse Oximetry 83 L Oxygen Delivery Method Oxygen Flow Rate 12/15/22 17:00 12/15/22 17:02 12/15/22 17:04 Pulse Rate 77 90 93 H Respiratory Rate 11 L 10 L 8 L Blood Pressure Pulse Oximetry 87 L Oxygen Delivery Method Nasal Cannula Oxygen Flow Rate 2 12/15/22 17:06 12/15/22 17:08 12/15/22 17:10 Pulse Rate 87 88 83 Respiratory Rate 10 L 10 L 13 Blood Pressure Pulse Oximetry 92 98 Oxygen Delivery Method Oxygen Flow Rate 12/15/22 17:12 12/15/22 17:14 12/15/22 17:16 Pulse Rate 83 85 90 Respiratory Rate 11 L 12 17 Blood Pressure Pulse Oximetry 88 L 90 L Oxygen Delivery Method Oxygen Flow Rate 12/15/22 17:18 12/15/22 17:20 12/15/22 17:22 Pulse Rate 89 83 83 Respiratory Rate 13 16 15 Blood Pressure Pulse Oximetry 84 L 76 L 86 L Oxygen Delivery Method Oxygen Flow Rate 12/15/22 17:24 12/15/22 17:26 Pulse Rate 84 88 Respiratory Rate 15 15 Blood Pressure Pulse Oximetry 80 L 88 L Oxygen Delivery Method Nasal Cannula Oxygen Flow Rate 2 <Veronica Billings DO - Last Filed: 12/17/22 08:09> Orders Ordered: Discontinued Medications Allopurinol (Allopurinol 100 Mg Tablet) 100 mg PO DAILY [facility] Last Admin: 12/15/22 12:05 Dose: 100 mg Documented By: ANDREW Alprazolam (Alprazolam 0.25 Mg Tablet) 0.25 mg PO NOW ONE Stop: 12/14/22 21:48 Last Admin: 12/14/22 21:55 Dose: Not Given Documented By: ARELY Atorvastatin Calcium (Atorvastatin 20 Mg Tablet) 10 mg PO BEDTIME [facility] Haloperidol (Haloperidol 5 Mg/Ml Vial) 1 mg IV NOW ONE Stop: 12/14/22 23:53 Last Admin: 12/15/22 00:01 Dose: 1 mg Documented By: ARELY Heparin Sodium (Porcine) (Heparin 500 Unit/5 Ml Port Flush) 500 unit IV PRN PRN PRN Reason: Flush Last Admin: 12/18/22 22:58 Dose: 500 unit Documented By: JOSEFINA Levofloxacin (Levaquin) 750 mg in 150 mls @ 100 mls/hr IV NOW ONE Stop: 12/14/22 16:14 Last Infusion: 12/14/22 17:23 Dose: 0 mls/hr Documented By: Admin: 12/14/22 15:00 Dose: 100 mls/hr Documented By: ROEL Sodium Chloride (Normal Saline 0.9%) 250 mls @ 1,000 mls/hr IV BOLUS ONE Stop: 12/14/22 15:00 Last Infusion: 12/14/22 16:00 Dose: 0 mls/hr Documented By: Admin: 12/14/22 15:00 Dose: 1,000 mls/hr Documented By: ROEL Sodium Chloride (Normal Saline 0.9%) 500 mls @ 1,000 mls/hr IV BOLUS ONE Stop: 12/14/22 21:36 Last Infusion: 12/14/22 22:05 Dose: 0 mls/hr Documented By: Admin: 12/14/22 21:32 Dose: 1,000 mls/hr Documented By: ARELY Dextrose (D10w) 1,000 mls @ 100 mls/hr IV CONT [facility] Last Infusion: 12/15/22 15:07 Dose: 0 mls/hr Documented By: Admin: 12/15/22 08:59 Dose: 100 mls/hr Documented By: Infusion: 12/15/22 08:05 Dose: 100 mls/hr Documented By: Admin: 12/14/22 22:05 Dose: 100 mls/hr Documented By: ARELY Dextrose/Sodium Chloride (Dextrose 5%-0.9% Ns) 1,000 mls @ 84 mls/hr IV CONT [facility] Last Admin: 12/15/22 17:42 Dose: Not Given Documented By: ANDREW Sodium Chloride (Normal Saline 0.9%) 500 mls @ 1,000 mls/hr IV BOLUS ONE Stop: 12/15/22 16:58 Last Admin: 12/15/22 17:42 Dose: Not Given Documented By: ANDREW Amiodarone HCl/Dextrose (Nexterone) 150 mg in 100 mls @ 600 mls/hr IV NOW ONE; Protocol Stop: 12/15/22 16:51 Last Infusion: 12/15/22 16:55 Dose: 0 mls/hr Documented By: Admin: 12/15/22 16:42 Dose: 600 mls/hr Documented By: ANDREW Amiodarone HCl/Dextrose (Nexterone) 360 mg in 200 mls @ 33.333 mls/hr IV NOW ONE; Protocol Stop: 12/15/22 22:42 Last Admin: 12/15/22 17:43 Dose: Not Given Documented By: ANDREW Lactobacillus Acidophilus (Lactobacillus Acidophilus Tablet) 1 each PO DAILY [facility] Lorazepam (Lorazepam 2 Mg/Ml Oral Areli) 1 mg PO Q1HR PRN PRN Reason: Anxiety Last Admin: 12/19/22 12:36 Dose: 1 mg Documented By: Admin: 12/19/22 08:42 Dose: 1 mg Documented By: Admin: 12/18/22 23:03 Dose: 1 mg Documented By: Admin: 12/18/22 14:58 Dose: 1 mg Documented By: Admin: 12/18/22 07:40 Dose: 1 mg Documented By: Admin: 12/17/22 22:32 Dose: 1 mg Documented By: Admin: 12/17/22 06:43 Dose: 1 mg Documented By: Admin: 12/16/22 21:56 Dose: 1 mg Documented By: Admin: 12/16/22 00:17 Dose: 1 mg Documented By: GUDELIA Metoprolol Succinate (Metoprolol Er 25 Mg Tablet) 25 mg PO DAILY [facility] Metoprolol Succinate (Metoprolol Er 25 Mg Tablet) 25 mg PO DAILY [facility] Last Admin: 12/15/22 09:45 Dose: 25 mg Documented By: Admin: 12/15/22 05:06 Dose: 25 mg Documented By: ARELY Metoprolol Tartrate (Metoprolol Tartrate 5 Mg/5 Ml Inj) 5 mg IV NOW ONE Stop: 12/15/22 00:26 Last Admin: 12/15/22 00:29 Dose: 5 mg Documented By: ARELY Metoprolol Tartrate (Metoprolol Ir 25 Mg Tablet) 12.5 mg PO BID [facility] Metoprolol Tartrate (Metoprolol Ir 25 Mg Tablet) 12.5 mg PO BID [facility] Morphine Sulfate (Morphine 2 Mg/Ml Inj) 2 mg IV Q30MIN PRN PRN Reason: Pain/Dyspnea Last Admin: 12/18/22 22:57 Dose: 2 mg Documented By: Admin: 12/18/22 14:08 Dose: 2 mg Documented By: Admin: 12/17/22 22:25 Dose: 2 mg Documented By: Admin: 12/17/22 06:43 Dose: 2 mg Documented By: Admin: 12/16/22 21:56 Dose: 2 mg Documented By: Admin: 12/16/22 00:07 Dose: 2 mg Documented By: Admin: 12/15/22 18:13 Dose: 2 mg Documented By: TRAN Ondansetron HCl (Ondansetron 4 Mg Odt) 4 mg SL Q8HR PRN PRN Reason: Nausea And Vomiting Stop: 12/18/22 10:43 Ondansetron HCl (Ondansetron 4 Mg/2 Ml Inj) 4 mg IV Q8HR PRN PRN Reason: Nausea And Vomiting Oxycodone/Acetaminophen (Oxycodone/Acetaminophen 5/325 Tablet) 1 tab PO NOW ONE Stop: 12/15/22 08:47 Last Admin: 12/15/22 09:00 Dose: 1 tab Documented By: AUBRIE Phytonadione (Phytonadione (Vit K1) 5 Mg Tablet) 10 mg PO NOW ONE Stop: 12/14/22 22:57 Last Admin: 12/14/22 23:05 Dose: 10 mg Documented By: ARELY Quetiapine Fumarate (Quetiapine 100 Mg Tablet) 25 mg PO NOW ONE Stop: 12/15/22 09:47 Last Admin: 12/15/22 10:25 Dose: 25 mg Documented By: AUBRIE Quetiapine Fumarate (Quetiapine 25 Mg Tablet) 25 mg PO NOW ONE Stop: 12/15/22 12:03 Last Admin: 12/15/22 12:06 Dose: 25 mg Documented By: ANDREW Scopolamine (Scopolamine 1 Patch) 1 patch TOP Q72H PRN PRN Reason: Secretions Last Admin: 12/15/22 18:39 Dose: 1 patch Documented By: TRAN Sennosides (Sennosides 8.6 Mg Tablet) 8.6 mg PO BID PRN PRN Reason: Constipation Sodium Chloride (Sodium Chloride 0.9% Flush) 10 ml IV PRN PRN PRN Reason: Flush Last Admin: 12/18/22 22:58 Dose: 10 ml Documented By: JOSEFINA Vital Signs Vital signs: Vital Signs - 8 hr 12/15/22 09:30 12/15/22 10:00 12/15/22 10:30 Pulse Rate 113 H 106 H Respiratory Rate 25 H 26 H Blood Pressure 106/60 Pulse Oximetry Oxygen Delivery Method Oxygen Flow Rate 12/15/22 10:30 12/15/22 11:00 12/15/22 11:30 Pulse Rate 104 H 102 H 108 H Respiratory Rate 27 H 25 H 21 Blood Pressure Pulse Oximetry 93 Oxygen Delivery Method Room Air Oxygen Flow Rate 12/15/22 12:00 12/15/22 12:30 12/15/22 13:00 Pulse Rate 103 H 104 H 115 H Respiratory Rate 24 20 23 Blood Pressure Pulse Oximetry Oxygen Delivery Method Oxygen Flow Rate 12/15/22 13:30 12/15/22 14:00 12/15/22 14:15 Pulse Rate 104 H 105 H 103 H Respiratory Rate 21 16 19 Blood Pressure Pulse Oximetry Oxygen Delivery Method Oxygen Flow Rate 12/15/22 14:30 12/15/22 14:45 12/15/22 15:00 Pulse Rate 108 H 110 H 104 H Respiratory Rate 14 16 15 Blood Pressure Pulse Oximetry Oxygen Delivery Method Oxygen Flow Rate 12/15/22 15:15 12/15/22 15:30 12/15/22 15:45 Pulse Rate 109 H 98 H 99 H Respiratory Rate 15 19 16 Blood Pressure Pulse Oximetry Oxygen Delivery Method Oxygen Flow Rate 12/15/22 16:00 12/15/22 16:15 12/15/22 16:28 Pulse Rate 96 H 103 H 100 H Respiratory Rate 13 16 19 Blood Pressure Pulse Oximetry Oxygen Delivery Method Oxygen Flow Rate 12/15/22 16:28 12/15/22 16:30 12/15/22 16:30 Pulse Rate 96 H Respiratory Rate 12 Blood Pressure 77/45 L 73/42 L Pulse Oximetry Oxygen Delivery Method Oxygen Flow Rate 12/15/22 16:31 12/15/22 16:31 12/15/22 16:35 Pulse Rate 95 H 115 H Respiratory Rate 13 Blood Pressure 74/40 L Pulse Oximetry 88 L Oxygen Delivery Method Oxygen Flow Rate 12/15/22 16:35 12/15/22 16:39 12/15/22 16:39 Pulse Rate 98 H Respiratory Rate 16 Blood Pressure 78/50 L 86/49 L Pulse Oximetry 84 L Oxygen Delivery Method Oxygen Flow Rate 12/15/22 16:40 12/15/22 16:42 12/15/22 16:42 Pulse Rate 94 H 97 H Respiratory Rate 8 L 19 Blood Pressure 86/48 L Pulse Oximetry 84 L Oxygen Delivery Method Oxygen Flow Rate 12/15/22 16:44 12/15/22 16:45 12/15/22 16:45 Pulse Rate 96 H 86 Respiratory Rate 11 L 15 Blood Pressure 71/45 L Pulse Oximetry Oxygen Delivery Method Oxygen Flow Rate 12/15/22 16:46 12/15/22 16:48 12/15/22 16:49 Pulse Rate 85 89 Respiratory Rate 11 L 14 Blood Pressure 80/43 L Pulse Oximetry 82 L Oxygen Delivery Method Oxygen Flow Rate 12/15/22 16:49 12/15/22 16:50 12/15/22 16:51 Pulse Rate 81 84 87 Respiratory Rate 9 L 7 L 13 Blood Pressure Pulse Oximetry 80 L 94 Oxygen Delivery Method Oxygen Flow Rate 12/15/22 16:51 12/15/22 16:52 12/15/22 16:54 Pulse Rate 87 Respiratory Rate 7 L Blood Pressure 81/51 L 70/34 L Pulse Oximetry 88 L Oxygen Delivery Method Oxygen Flow Rate 12/15/22 16:54 12/15/22 16:56 12/15/22 16:57 Pulse Rate 78 85 81 Respiratory Rate 14 14 15 Blood Pressure Pulse Oximetry 78 L 79 L Oxygen Delivery Method Oxygen Flow Rate 12/15/22 16:57 12/15/22 16:58 12/15/22 17:00 Pulse Rate 82 Respiratory Rate 12 Blood Pressure 61/38 L 62/40 L Pulse Oximetry 83 L Oxygen Delivery Method Oxygen Flow Rate 12/15/22 17:00 12/15/22 17:02 12/15/22 17:04 Pulse Rate 77 90 93 H Respiratory Rate 11 L 10 L 8 L Blood Pressure Pulse Oximetry 87 L Oxygen Delivery Method Nasal Cannula Oxygen Flow Rate 2 12/15/22 17:06 12/15/22 17:08 12/15/22 17:10 Pulse Rate 87 88 83 Respiratory Rate 10 L 10 L 13 Blood Pressure Pulse Oximetry 92 98 Oxygen Delivery Method Oxygen Flow Rate 12/15/22 17:12 12/15/22 17:14 12/15/22 17:16 Pulse Rate 83 85 90 Respiratory Rate 11 L 12 17 Blood Pressure Pulse Oximetry 88 L 90 L Oxygen Delivery Method Oxygen Flow Rate 12/15/22 17:18 12/15/22 17:20 12/15/22 17:22 Pulse Rate 89 83 83 Respiratory Rate 13 16 15 Blood Pressure Pulse Oximetry 84 L 76 L 86 L Oxygen Delivery Method Oxygen Flow Rate 12/15/22 17:24 12/15/22 17:26 Pulse Rate 84 88 Respiratory Rate 15 15 Blood Pressure Pulse Oximetry 80 L 88 L Oxygen Delivery Method Nasal Cannula Oxygen Flow Rate 2 <Todd Rivera MD - Last Filed: 12/31/22 22:15> Course Course Narrative: December 15, 2022 at 7:[address] Billings, patient awaiting for transfer. Patient requiring peritoneal dialysis. She did receive dialysis while here. Patient is here for altered mental status. INR is elevated. Patient and family request no blood products. Negative head CT. Negative osteomyelitis. Patient sees Dr. Leone with Nephrology at [facility]. Patient did receive the 10 for episode of hypoglycemia. I introduced myself to patient. Daughter currently went home to shower. Nephew is here at bedside. I will discuss about possible MRI but will require anxiolytic. Also I will speak with daughter regarding Kcentra infusion 9:40 a.m.. Spoke with daughter at bedside. At this time she would like to review more about Kcentra, she does agree for MRI and Seroquel. I did review laboratory studies and we are still waiting for bed and she does understand why we need to transfer due to dialysis. 2:30 p.m.. Spoke with [facility] nephrology, Dr. Land, at this time he will follow up patient in consult, admit to hospitalist. At this time recommends changing fluids for sodium levels. Would improve with possibly D5 normal saline.. Patient not tolerating eating/diet. That is why she needs dextrose. 4:30 p.m.. Patient had episode of V-tach and hypotension. Amiodarone 150 mg was given. 125 mL of normal saline given. Patient heart rate has improved and blood pressure improved. Daughter at bedside. At this time daughter would like to make patient DNR DNI with comfort measures only. We are gathering more family members to the bed side. Social work Madina is with them as well. I have spoken with him regarding risks and benefits of continuing on with medications. Including troponin levels hemoglobin levels sodium levels magnesium levels. Daughter is POA. I have spoken with family and they do understand that may be eminent. 5:15 p.m.. Patient family have decided with social work to make patient DNR DNI with comfort measures only. We have disconnected all medications IV fluids and monitor. I spoke with Dr. White, hospitalist, he will admit patient. Orders Ordered: Discontinued Medications Allopurinol (Allopurinol 100 Mg Tablet) 100 mg PO DAILY MARILOU Last Admin: 12/15/22 12:05 Dose: 100 mg Documented By: ANDREW Alprazolam (Alprazolam 0.25 Mg Tablet) 0.25 mg PO NOW ONE Stop: 12/14/22 21:48 Last Admin: 12/14/22 21:55 Dose: Not Given Documented By: ARELY Atorvastatin Calcium (Atorvastatin 20 Mg Tablet) 10 mg PO BEDTIME MARILOU Haloperidol (Haloperidol 5 Mg/Ml Vial) 1 mg IV NOW ONE Stop: 12/14/22 23:53 Last Admin: 12/15/22 00:01 Dose: 1 mg Documented By: ARELY Heparin Sodium (Porcine) (Heparin 500 Unit/5 Ml Port Flush) 500 unit IV PRN PRN PRN Reason: Flush Last Admin: 12/18/22 22:58 Dose: 500 unit Documented By: JOSEFINA Levofloxacin (Levaquin) 750 mg in 150 mls @ 100 mls/hr IV NOW ONE Stop: 12/14/22 16:14 Last Infusion: 12/14/22 17:23 Dose: 0 mls/hr Documented By: Admin: 12/14/22 15:00 Dose: 100 mls/hr Documented By: ROEL Sodium Chloride (Normal Saline 0.9%) 250 mls @ 1,000 mls/hr IV BOLUS ONE Stop: 12/14/22 15:00 Last Infusion: 12/14/22 16:00 Dose: 0 mls/hr Documented By: Admin: 12/14/22 15:00 Dose: 1,000 mls/hr Documented By: ROEL Sodium Chloride (Normal Saline 0.9%) 500 mls @ 1,000 mls/hr IV BOLUS ONE Stop: 12/14/22 21:36 Last Infusion: 12/14/22 22:05 Dose: 0 mls/hr Documented By: Admin: 12/14/22 21:32 Dose: 1,000 mls/hr Documented By: ARELY Dextrose (D10w) 1,000 mls @ 100 mls/hr IV CONT MARILOU Last Infusion: 12/15/22 15:07 Dose: 0 mls/hr Documented By: Admin: 12/15/22 08:59 Dose: 100 mls/hr Documented By: Infusion: 12/15/22 08:05 Dose: 100 mls/hr Documented By: Admin: 12/14/22 22:05 Dose: 100 mls/hr Documented By: JH Dextrose/Sodium Chloride (Dextrose 5%-0.9% Ns) 1,000 mls @ 84 mls/hr IV CONT MARILOU Last Admin: 12/15/22 17:42 Dose: Not Given Documented By: ANDREW Sodium Chloride (Normal Saline 0.9%) 500 mls @ 1,000 mls/hr IV BOLUS ONE Stop: 12/15/22 16:58 Last Admin: 12/15/22 17:42 Dose: Not Given Documented By: ANDREW Amiodarone HCl/Dextrose (Nexterone) 150 mg in 100 mls @ 600 mls/hr IV NOW ONE; Protocol Stop: 12/15/22 16:51 Last Infusion: 12/15/22 16:55 Dose: 0 mls/hr Documented By: Admin: 12/15/22 16:42 Dose: 600 mls/hr Documented By: ANDREW Amiodarone HCl/Dextrose (Nexterone) 360 mg in 200 mls @ 33.333 mls/hr IV NOW ONE; Protocol Stop: 12/15/22 22:42 Last Admin: 12/15/22 17:43 Dose: Not Given Documented By: ANDREW Lactobacillus Acidophilus (Lactobacillus Acidophilus Tablet) 1 each PO DAILY [facility] Lorazepam (Lorazepam 2 Mg/Ml Oral Areli) 1 mg PO Q1HR PRN PRN Reason: Anxiety Last Admin: 12/19/22 12:36 Dose: 1 mg Documented By: Admin: 12/19/22 08:42 Dose: 1 mg Documented By: Admin: 12/18/22 23:03 Dose: 1 mg Documented By: Admin: 12/18/22 14:58 Dose: 1 mg Documented By: Admin: 12/18/22 07:40 Dose: 1 mg Documented By: Admin: 12/17/22 22:32 Dose: 1 mg Documented By: Admin: 12/17/22 06:43 Dose: 1 mg Documented By: Admin: 12/16/22 21:56 Dose: 1 mg Documented By: Admin: 12/16/22 00:17 Dose: 1 mg Documented By: GUDELIA Metoprolol Succinate (Metoprolol Er 25 Mg Tablet) 25 mg PO DAILY [facility] Metoprolol Succinate (Metoprolol Er 25 Mg Tablet) 25 mg PO DAILY [facility] Last Admin: 12/15/22 09:45 Dose: 25 mg Documented By: Admin: 12/15/22 05:06 Dose: 25 mg Documented By: ARELY Metoprolol Tartrate (Metoprolol Tartrate 5 Mg/5 Ml Inj) 5 mg IV NOW ONE Stop: 12/15/22 00:26 Last Admin: 12/15/22 00:29 Dose: 5 mg Documented By: ARELY Metoprolol Tartrate (Metoprolol Ir 25 Mg Tablet) 12.5 mg PO BID MARILOU Metoprolol Tartrate (Metoprolol Ir 25 Mg Tablet) 12.5 mg PO BID MARILOU Morphine Sulfate (Morphine 2 Mg/Ml Inj) 2 mg IV Q30MIN PRN PRN Reason: Pain/Dyspnea Last Admin: 12/18/22 22:57 Dose: 2 mg Documented By: Admin: 12/18/22 14:08 Dose: 2 mg Documented By: Admin: 12/17/22 22:25 Dose: 2 mg Documented By: Admin: 12/17/22 06:43 Dose: 2 mg Documented By: Admin: 12/16/22 21:56 Dose: 2 mg Documented By: Admin: 12/16/22 00:07 Dose: 2 mg Documented By: Admin: 12/15/22 18:13 Dose: 2 mg Documented By: TRAN Ondansetron HCl (Ondansetron 4 Mg Odt) 4 mg SL Q8HR PRN PRN Reason: Nausea And Vomiting Stop: 12/18/22 10:43 Ondansetron HCl (Ondansetron 4 Mg/2 Ml Inj) 4 mg IV Q8HR PRN PRN Reason: Nausea And Vomiting Oxycodone/Acetaminophen (Oxycodone/Acetaminophen 5/325 Tablet) 1 tab PO NOW ONE Stop: 12/15/22 08:47 Last Admin: 12/15/22 09:00 Dose: 1 tab Documented By: AUBRIE Phytonadione (Phytonadione (Vit K1) 5 Mg Tablet) 10 mg PO NOW ONE Stop: 12/14/22 22:57 Last Admin: 12/14/22 23:05 Dose: 10 mg Documented By: ARELY Quetiapine Fumarate (Quetiapine 100 Mg Tablet) 25 mg PO NOW ONE Stop: 12/15/22 09:47 Last Admin: 12/15/22 10:25 Dose: 25 mg Documented By: JG Quetiapine Fumarate (Quetiapine 25 Mg Tablet) 25 mg PO NOW ONE Stop: 12/15/22 12:03 Last Admin: 12/15/22 12:06 Dose: 25 mg Documented By: FL Scopolamine (Scopolamine 1 Patch) 1 patch TOP Q72H PRN PRN Reason: Secretions Last Admin: 12/15/22 18:39 Dose: 1 patch Documented By: BT Sennosides (Sennosides 8.6 Mg Tablet) 8.6 mg PO BID PRN PRN Reason: Constipation Sodium Chloride (Sodium Chloride 0.9% Flush) 10 ml IV PRN PRN PRN Reason: Flush Last Admin: 12/18/22 22:58 Dose: 10 ml Documented By: [facility] Consultations Consultation #1: December 15, 2022 at 11:00 a.m.. Spoke with cardiology Dr. Farley. Troponin is nonspecific given renal function and clinical presentation. Would not pursue coronary pathway with workup. No heparin no aspirin at this time. INRs 8.0 with no bleeding Time: 11:08 Vital Signs Vital signs: Vital Signs - 8 hr 12/15/22 09:30 12/15/22 10:00 12/15/22 10:30 Pulse Rate 113 H 106 H Respiratory Rate 25 H 26 H Blood Pressure 106/60 Pulse Oximetry Oxygen Delivery Method Oxygen Flow Rate 12/15/22 10:30 12/15/22 11:00 12/15/22 11:30 Pulse Rate 104 H 102 H 108 H Respiratory Rate 27 H 25 H 21 Blood Pressure Pulse Oximetry 93 Oxygen Delivery Method Room Air Oxygen Flow Rate 12/15/22 12:00 12/15/22 12:30 12/15/22 13:00 Pulse Rate 103 H 104 H 115 H Respiratory Rate 24 20 23 Blood Pressure Pulse Oximetry Oxygen Delivery Method Oxygen Flow Rate 12/15/22 13:30 12/15/22 14:00 12/15/22 14:15 Pulse Rate 104 H 105 H 103 H Respiratory Rate 21 16 19 Blood Pressure Pulse Oximetry Oxygen Delivery Method Oxygen Flow Rate 12/15/22 14:30 12/15/22 14:45 12/15/22 15:00 Pulse Rate 108 H 110 H 104 H Respiratory Rate 14 16 15 Blood Pressure Pulse Oximetry Oxygen Delivery Method Oxygen Flow Rate 12/15/22 15:15 12/15/22 15:30 12/15/22 15:45 Pulse Rate 109 H 98 H 99 H Respiratory Rate 15 19 16 Blood Pressure Pulse Oximetry Oxygen Delivery Method Oxygen Flow Rate 12/15/22 16:00 12/15/22 16:15 12/15/22 16:28 Pulse Rate 96 H 103 H 100 H Respiratory Rate 13 16 19 Blood Pressure Pulse Oximetry Oxygen Delivery Method Oxygen Flow Rate 12/15/22 16:28 12/15/22 16:30 12/15/22 16:30 Pulse Rate 96 H Respiratory Rate 12 Blood Pressure 77/45 L 73/42 L Pulse Oximetry Oxygen Delivery Method Oxygen Flow Rate 12/15/22 16:31 12/15/22 16:31 12/15/22 16:35 Pulse Rate 95 H 115 H Respiratory Rate 13 Blood Pressure 74/40 L Pulse Oximetry 88 L Oxygen Delivery Method Oxygen Flow Rate 12/15/22 16:35 12/15/22 16:39 12/15/22 16:39 Pulse Rate 98 H Respiratory Rate 16 Blood Pressure 78/50 L 86/49 L Pulse Oximetry 84 L Oxygen Delivery Method Oxygen Flow Rate 12/15/22 16:40 12/15/22 16:42 12/15/22 16:42 Pulse Rate 94 H 97 H Respiratory Rate 8 L 19 Blood Pressure 86/48 L Pulse Oximetry 84 L Oxygen Delivery Method Oxygen Flow Rate 12/15/22 16:44 12/15/22 16:45 12/15/22 16:45 Pulse Rate 96 H 86 Respiratory Rate 11 L 15 Blood Pressure 71/45 L Pulse Oximetry Oxygen Delivery Method Oxygen Flow Rate 12/15/22 16:46 12/15/22 16:48 12/15/22 16:49 Pulse Rate 85 89 Respiratory Rate 11 L 14 Blood Pressure 80/43 L Pulse Oximetry 82 L Oxygen Delivery Method Oxygen Flow Rate 12/15/22 16:49 12/15/22 16:50 12/15/22 16:51 Pulse Rate 81 84 87 Respiratory Rate 9 L 7 L 13 Blood Pressure Pulse Oximetry 80 L 94 Oxygen Delivery Method Oxygen Flow Rate 12/15/22 16:51 12/15/22 16:52 12/15/22 16:54 Pulse Rate 87 Respiratory Rate 7 L Blood Pressure 81/51 L 70/34 L Pulse Oximetry 88 L Oxygen Delivery Method Oxygen Flow Rate 12/15/22 16:54 12/15/22 16:56 12/15/22 16:57 Pulse Rate 78 85 81 Respiratory Rate 14 14 15 Blood Pressure Pulse Oximetry 78 L 79 L Oxygen Delivery Method Oxygen Flow Rate 12/15/22 16:57 12/15/22 16:58 12/15/22 17:00 Pulse Rate 82 Respiratory Rate 12 Blood Pressure 61/38 L 62/40 L Pulse Oximetry 83 L Oxygen Delivery Method Oxygen Flow Rate 12/15/22 17:00 12/15/22 17:02 12/15/22 17:04 Pulse Rate 77 90 93 H Respiratory Rate 11 L 10 L 8 L Blood Pressure Pulse Oximetry 87 L Oxygen Delivery Method Nasal Cannula Oxygen Flow Rate 2 12/15/22 17:06 12/15/22 17:08 12/15/22 17:10 Pulse Rate 87 88 83 Respiratory Rate 10 L 10 L 13 Blood Pressure Pulse Oximetry 92 98 Oxygen Delivery Method Oxygen Flow Rate 12/15/22 17:12 12/15/22 17:14 12/15/22 17:16 Pulse Rate 83 85 90 Respiratory Rate 11 L 12 17 Blood Pressure Pulse Oximetry 88 L 90 L Oxygen Delivery Method Oxygen Flow Rate 12/15/22 17:18 12/15/22 17:20 12/15/22 17:22 Pulse Rate 89 83 83 Respiratory Rate 13 16 15 Blood Pressure Pulse Oximetry 84 L 76 L 86 L Oxygen Delivery Method Oxygen Flow Rate 12/15/22 17:24 12/15/22 17:26 Pulse Rate 84 88 Respiratory Rate 15 15 Blood Pressure Pulse Oximetry 80 L 88 L Oxygen Delivery Method Nasal Cannula Oxygen Flow Rate 2 MDM - Nausea/Vomiting/Diarrhea <Lo Hampton, DO - Last Filed: 12/14/22 19:51> Lab Data 12/15/22 12:55 12/15/22 12:55 Labs: Lab Results 12/14/22 12/14/22 12/14/22 Range/Units 10:58 10:58 10:58 WBC 9.5 (4.5-11.0) X10^3/uL RBC 3.21 L (4.0-5.2) X10^6/uL Hgb 10.2 L (12.0-16.0) g/dL Hct 31.2 L (36-46) % MCV 97.0 (80-100) fL MCH 31.8 (26-34) PG MCHC 32.8 (30-36) % RDW 18.5 H (11.6-14.8) % Plt Count 213 (150-400) X10^3/uL Neut % (Auto) 90.7 H (50-75) % Lymph % (Auto) 2.1 L (25-40) % [place] % (Auto) 5.1 (3-14) % Eos % (Auto) 0.9 L (2-4) % Baso % (Auto) 1.2 (0-2) % Neut # (Auto) 8600 H (1748-5738) /uL Lymph # (Auto) 200 L (9484-3533) /uL [place] # (Auto) 500 (0-900) /uL Eos # (Auto) 100 (0-450) /uL Baso # (Auto) 100 (0-100) /uL ESR (0-20) MM/HR PT (10.1-12.7) SECONDS INR (0.9-1.3) APTT (26-36) SECONDS Sodium 127 L (137-145) mmol/L Potassium 3.4 (3.4-5.1) mmol/L Chloride 91 L (98-107) mmol/L Carbon Dioxide 27 (22-32) mmol/L BUN 56 H (7-17) mg/dL Creatinine 4.70 H (0.52-1.04) mg/dL Estimated GFR 9 L (>60) mL/min BUN/Creatinine Ratio 11.9 (6-22) Glucose 93 (80-110) mg/dL Lactate (0.7-2.1) mmol/L Calcium 7.4 L (8.4-10.2) mg/dL Magnesium (1.6-2.3) mg/dL Total Bilirubin 0.6 (0.2-1.3) mg/dL AST 31 (14-36) IU/L ALT 18 (<35) IU/L Alkaline Phosphatase 104 (38-126) U/L Ammonia < 9 L (9-30) umol/L Total Creatine Kinase (30-135) U/L CK-MB (CK-2) CK-MB (CK-2) Rel Index Troponin I (0.01-0.034) ng/mL C-Reactive Protein (<1.0) mg/dL Total Protein 4.7 L (6.3-8.2) g/dL Albumin 2.3 L (3.5-5.0) g/dL Globulin 2.4 (1.7-4.1) g/dL Albumin/Globulin Ratio 1.0 (1.0-2.8) Lipase (23-300) U/L Procalcitonin (<0.5) ng/mL Urine Color Urine Appearance Urine pH (4.5-8.0) Ur Specific [place] (1.000-1.035) Urine Protein (Negative) Urine Glucose (UA) (Negative) g/dL Urine Ketones (NEGATIVE) Urine Occult Blood (Negative) Urine Nitrate (Negative) Urine Bilirubin (NEGATIVE) Ur Bilirubin Confirm (Negative) Urine Urobilinogen (0.2) E.U./dL Ur Leukocyte Esterase (NEGATIVE) Urine RBC (0-5/HPF) Urine WBC (0-5/HPF) Ur Squamous Epith Cells (0-5/HPF) Urine Bacteria (None) Ur Culture Indicated? U Opiates 300ng/mL cut (Negative) Ur Oxycodone Screen (Negative) Urine Methadone Screen (Negative) Ur Barbiturates Screen (Negative) U Tricyclic Antidepress (Negative) Ur Phencyclidine Scrn (Negative) Ur Amphetamines Screen (Negative) U Methamphetamines Scrn (Negative) Ur MDMA Scrn (Ecstasy) (Negative) U Benzodiazepines Scrn (Negative) Urine Cocaine Screen (Negative) U Marijuana (THC) Screen (Negative) Ethyl Alcohol ( - 10) mg/dL Chlamy pneumoniae PCR (Not Detect) Adenovirus (PCR) (Not Detect) B. pertussis DNA (PCR) (Not Detecte) B.parapertussis DNA PCR (Not Detecte) Coronavirus OC43 (PCR) (Not Detect) Coronavirus HKU1 (PCR) (Not Detect) Coronavirus 229E (PCR) (Not Detect) SARS-CoV-2 (PCR) (Not Detecte) Coronavirus NL63 (PCR) (Not Detect) Human Metapneumovir PCR (Not Detect) Influenza Type A (PCR) (Not Detect) Influenza Type B (PCR) (Not Detect) M. pneumoniae (PCR) (Not Detect) Parainfluenza 1 (PCR) (Not Detect) Parainfluenza 2 (PCR) (Not Detect) Parainfluenza 3 (PCR) (Not Detect) Parainfluenza 4 (PCR) (Not Detect) RSV (PCR) (Not Detect) Entero/Rhino (PCR) (Not Detect) 12/14/22 12/14/22 12/14/22 Range/Units 10:58 10:58 10:58 WBC (4.5-11.0) X10^3/uL RBC (4.0-5.2) X10^6/uL Hgb (12.0-16.0) g/dL Hct (36-46) % MCV (80-100) fL MCH (26-34) PG MCHC (30-36) % RDW (11.6-14.8) % Plt Count (150-400) X10^3/uL Neut % (Auto) (50-75) % Lymph % (Auto) (25-40) % [place] % (Auto) (3-14) % Eos % (Auto) (2-4) % Baso % (Auto) (0-2) % Neut # (Auto) (5798-6028) /uL Lymph # (Auto) (6772-1073) /uL [place] # (Auto) (0-900) /uL Eos # (Auto) (0-450) /uL Baso # (Auto) (0-100) /uL ESR (0-20) MM/HR PT 91.8 H (10.1-12.7) SECONDS INR 7.8 H* (0.9-1.3) APTT 57 H (26-36) SECONDS Sodium (137-145) mmol/L Potassium (3.4-5.1) mmol/L Chloride (98-107) mmol/L Carbon Dioxide (22-32) mmol/L BUN (7-17) mg/dL Creatinine (0.52-1.04) mg/dL Estimated GFR (>60) mL/min BUN/Creatinine Ratio (6-22) Glucose (80-110) mg/dL Lactate 1.3 (0.7-2.1) mmol/L Calcium (8.4-10.2) mg/dL Magnesium (1.6-2.3) mg/dL Total Bilirubin (0.2-1.3) mg/dL AST (14-36) IU/L ALT (<35) IU/L Alkaline Phosphatase (38-126) U/L Ammonia (9-30) umol/L Total Creatine Kinase (30-135) U/L CK-MB (CK-2) CK-MB (CK-2) Rel Index Troponin I (0.01-0.034) ng/mL C-Reactive Protein (<1.0) mg/dL Total Protein (6.3-8.2) g/dL Albumin (3.5-5.0) g/dL Globulin (1.7-4.1) g/dL Albumin/Globulin Ratio (1.0-2.8) Lipase (23-300) U/L Procalcitonin (<0.5) ng/mL Urine Color Urine Appearance Urine pH (4.5-8.0) Ur Specific [place] (1.000-1.035) Urine Protein (Negative) Urine Glucose (UA) (Negative) g/dL Urine Ketones (NEGATIVE) Urine Occult Blood (Negative) Urine Nitrate (Negative) Urine Bilirubin (NEGATIVE) Ur Bilirubin Confirm (Negative) Urine Urobilinogen (0.2) E.U./dL Ur Leukocyte Esterase (NEGATIVE) Urine RBC (0-5/HPF) Urine WBC (0-5/HPF) Ur Squamous Epith Cells (0-5/HPF) Urine Bacteria (None) Ur Culture Indicated? U Opiates 300ng/mL cut (Negative) Ur Oxycodone Screen (Negative) Urine Methadone Screen (Negative) Ur Barbiturates Screen (Negative) U Tricyclic Antidepress (Negative) Ur Phencyclidine Scrn (Negative) Ur Amphetamines Screen (Negative) U Methamphetamines Scrn (Negative) Ur MDMA Scrn (Ecstasy) (Negative) U Benzodiazepines Scrn (Negative) Urine Cocaine Screen (Negative) U Marijuana (THC) Screen (Negative) Ethyl Alcohol < 10 ( - 10) mg/dL Chlamy pneumoniae PCR (Not Detect) Adenovirus (PCR) (Not Detect) B. pertussis DNA (PCR) (Not Detecte) B.parapertussis DNA PCR (Not Detecte) Coronavirus OC43 (PCR) (Not Detect) Coronavirus HKU1 (PCR) (Not Detect) Coronavirus 229E (PCR) (Not Detect) SARS-CoV-2 (PCR) (Not Detecte) Coronavirus NL63 (PCR) (Not Detect) Human Metapneumovir PCR (Not Detect) Influenza Type A (PCR) (Not Detect) Influenza Type B (PCR) (Not Detect) M. pneumoniae (PCR) (Not Detect) Parainfluenza 1 (PCR) (Not Detect) Parainfluenza 2 (PCR) (Not Detect) Parainfluenza 3 (PCR) (Not Detect) Parainfluenza 4 (PCR) (Not Detect) RSV (PCR) (Not Detect) Entero/Rhino (PCR) (Not Detect) 12/14/22 12/14/22 12/14/22 Range/Units 12:26 12:26 17:18 WBC (4.5-11.0) X10^3/uL RBC (4.0-5.2) X10^6/uL Hgb (12.0-16.0) g/dL Hct (36-46) % MCV (80-100) fL MCH (26-34) PG MCHC (30-36) % RDW (11.6-14.8) % Plt Count (150-400) X10^3/uL Neut % (Auto) (50-75) % Lymph % (Auto) (25-40) % [place] % (Auto) (3-14) % Eos % (Auto) (2-4) % Baso % (Auto) (0-2) % Neut # (Auto) (4705-9376) /uL Lymph # (Auto) (3454-6171) /uL [place] # (Auto) (0-900) /uL Eos # (Auto) (0-450) /uL Baso # (Auto) (0-100) /uL ESR (0-20) MM/HR PT (10.1-12.7) SECONDS INR (0.9-1.3) APTT (26-36) SECONDS Sodium (137-145) mmol/L Potassium (3.4-5.1) mmol/L Chloride (98-107) mmol/L Carbon Dioxide (22-32) mmol/L BUN (7-17) mg/dL Creatinine (0.52-1.04) mg/dL Estimated GFR (>60) mL/min BUN/Creatinine Ratio (6-22) Glucose (80-110) mg/dL Lactate (0.7-2.1) mmol/L Calcium (8.4-10.2) mg/dL Magnesium (1.6-2.3) mg/dL Total Bilirubin (0.2-1.3) mg/dL AST (14-36) IU/L ALT (<35) IU/L Alkaline Phosphatase (38-126) U/L Ammonia (9-30) umol/L Total Creatine Kinase (30-135) U/L CK-MB (CK-2) CK-MB (CK-2) Rel Index Troponin I (0.01-0.034) ng/mL C-Reactive Protein (<1.0) mg/dL Total Protein (6.3-8.2) g/dL Albumin (3.5-5.0) g/dL Globulin (1.7-4.1) g/dL Albumin/Globulin Ratio (1.0-2.8) Lipase 29 (23-300) U/L Procalcitonin 1.21 H (<0.5) ng/mL Urine Color Urine Appearance Urine pH (4.5-8.0) Ur Specific [place] (1.000-1.035) Urine Protein (Negative) Urine Glucose (UA) (Negative) g/dL Urine Ketones (NEGATIVE) Urine Occult Blood (Negative) Urine Nitrate (Negative) Urine Bilirubin (NEGATIVE) Ur Bilirubin Confirm (Negative) Urine Urobilinogen (0.2) E.U./dL Ur Leukocyte Esterase (NEGATIVE) Urine RBC (0-5/HPF) Urine WBC (0-5/HPF) Ur Squamous Epith Cells (0-5/HPF) Urine Bacteria (None) Ur Culture Indicated? U Opiates 300ng/mL cut Negative (Negative) Ur Oxycodone Screen Positive H (Negative) Urine Methadone Screen Negative (Negative) Ur Barbiturates Screen Negative (Negative) U Tricyclic Antidepress Negative (Negative) Ur Phencyclidine Scrn Negative (Negative) Ur Amphetamines Screen Negative (Negative) U Methamphetamines Scrn Negative (Negative) Ur MDMA Scrn (Ecstasy) Negative (Negative) U Benzodiazepines Scrn Positive H (Negative) Urine Cocaine Screen Negative (Negative) U Marijuana (THC) Screen Negative (Negative) Ethyl Alcohol ( - 10) mg/dL Chlamy pneumoniae PCR (Not Detect) Adenovirus (PCR) (Not Detect) B. pertussis DNA (PCR) (Not Detecte) B.parapertussis DNA PCR (Not Detecte) Coronavirus OC43 (PCR) (Not Detect) Coronavirus HKU1 (PCR) (Not Detect) Coronavirus 229E (PCR) (Not Detect) SARS-CoV-2 (PCR) (Not Detecte) Coronavirus NL63 (PCR) (Not Detect) Human Metapneumovir PCR (Not Detect) Influenza Type A (PCR) (Not Detect) Influenza Type B (PCR) (Not Detect) M. pneumoniae (PCR) (Not Detect) Parainfluenza 1 (PCR) (Not Detect) Parainfluenza 2 (PCR) (Not Detect) Parainfluenza 3 (PCR) (Not Detect) Parainfluenza 4 (PCR) (Not Detect) RSV (PCR) (Not Detect) Entero/Rhino (PCR) (Not Detect) 12/14/22 12/14/22 12/14/22 Range/Units 17:18 17:30 22:30 WBC 11.1 H (4.5-11.0) X10^3/uL RBC 2.23 L (4.0-5.2) X10^6/uL Hgb 7.1 L (12.0-16.0) g/dL Hct 21.8 L (36-46) % MCV 97.8 (80-100) fL MCH 32.1 (26-34) PG MCHC 32.8 (30-36) % RDW 18.7 H (11.6-14.8) % Plt Count 293 (150-400) X10^3/uL Neut % (Auto) 87.6 H (50-75) % Lymph % (Auto) 4.5 L (25-40) % [place] % (Auto) 6.7 (3-14) % Eos % (Auto) 1.0 L (2-4) % Baso % (Auto) 0.2 (0-2) % Neut # (Auto) 9700 H (3269-2044) /uL Lymph # (Auto) 500 L (9644-0911) /uL [place] # (Auto) 700 (0-900) /uL Eos # (Auto) 100 (0-450) /uL Baso # (Auto) 0 (0-100) /uL ESR (0-20) MM/HR PT (10.1-12.7) SECONDS INR (0.9-1.3) APTT (26-36) SECONDS Sodium (137-145) mmol/L Potassium (3.4-5.1) mmol/L Chloride (98-107) mmol/L Carbon Dioxide (22-32) mmol/L BUN (7-17) mg/dL Creatinine (0.52-1.04) mg/dL Estimated GFR (>60) mL/min BUN/Creatinine Ratio (6-22) Glucose (80-110) mg/dL Lactate 1.4 (0.7-2.1) mmol/L Calcium (8.4-10.2) mg/dL Magnesium (1.6-2.3) mg/dL Total Bilirubin (0.2-1.3) mg/dL AST (14-36) IU/L ALT (<35) IU/L Alkaline Phosphatase (38-126) U/L Ammonia (9-30) umol/L Total Creatine Kinase (30-135) U/L CK-MB (CK-2) CK-MB (CK-2) Rel Index Troponin I (0.01-0.034) ng/mL C-Reactive Protein (<1.0) mg/dL Total Protein (6.3-8.2) g/dL Albumin (3.5-5.0) g/dL Globulin (1.7-4.1) g/dL Albumin/Globulin Ratio (1.0-2.8) Lipase (23-300) U/L Procalcitonin (<0.5) ng/mL Urine Color Brown Urine Appearance Sl cloudy Urine pH 5.0 (4.5-8.0) Ur Specific [place] 1.020 (1.000-1.035) Urine Protein Negative (Negative) Urine Glucose (UA) Negative (Negative) g/dL Urine Ketones Negative (NEGATIVE) Urine Occult Blood Negative (Negative) Urine Nitrate Negative (Negative) Urine Bilirubin 1+ H (NEGATIVE) Ur Bilirubin Confirm Negative (Negative) Urine Urobilinogen 0.2 (0.2) E.U./dL Ur Leukocyte Esterase Negative (NEGATIVE) Urine RBC 1-5/hpf (0-5/HPF) Urine WBC 1-5/hpf (0-5/HPF) Ur Squamous Epith Cells 1-5 /hpf (0-5/HPF) Urine Bacteria Occasional (0-1) (None) Ur Culture Indicated? Cult not indicated U Opiates 300ng/mL cut (Negative) Ur Oxycodone Screen (Negative) Urine Methadone Screen (Negative) Ur Barbiturates Screen (Negative) U Tricyclic Antidepress (Negative) Ur Phencyclidine Scrn (Negative) Ur Amphetamines Screen (Negative) U Methamphetamines Scrn (Negative) Ur MDMA Scrn (Ecstasy) (Negative) U Benzodiazepines Scrn (Negative) Urine Cocaine Screen (Negative) U Marijuana (THC) Screen (Negative) Ethyl Alcohol ( - 10) mg/dL Chlamy pneumoniae PCR (Not Detect) Adenovirus (PCR) (Not Detect) B. pertussis DNA (PCR) (Not Detecte) B.parapertussis DNA PCR (Not Detecte) Coronavirus OC43 (PCR) (Not Detect) Coronavirus HKU1 (PCR) (Not Detect) Coronavirus 229E (PCR) (Not Detect) SARS-CoV-2 (PCR) (Not Detecte) Coronavirus NL63 (PCR) (Not Detect) Human Metapneumovir PCR (Not Detect) Influenza Type A (PCR) (Not Detect) Influenza Type B (PCR) (Not Detect) M. pneumoniae (PCR) (Not Detect) Parainfluenza 1 (PCR) (Not Detect) Parainfluenza 2 (PCR) (Not Detect) Parainfluenza 3 (PCR) (Not Detect) Parainfluenza 4 (PCR) (Not Detect) RSV (PCR) (Not Detect) Entero/Rhino (PCR) (Not Detect) 12/14/22 12/14/22 12/14/22 Range/Units 22:30 22:30 22:30 WBC (4.5-11.0) X10^3/uL RBC (4.0-5.2) X10^6/uL Hgb (12.0-16.0) g/dL Hct (36-46) % MCV (80-100) fL MCH (26-34) PG MCHC (30-36) % RDW (11.6-14.8) % Plt Count (150-400) X10^3/uL Neut % (Auto) (50-75) % Lymph % (Auto) (25-40) % [place] % (Auto) (3-14) % Eos % (Auto) (2-4) % Baso % (Auto) (0-2) % Neut # (Auto) (9752-9712) /uL Lymph # (Auto) (5278-2054) /uL [place] # (Auto) (0-900) /uL Eos # (Auto) (0-450) /uL Baso # (Auto) (0-100) /uL ESR (0-20) MM/HR PT 118.2 H D (10.1-12.7) SECONDS INR 10.0 H* (0.9-1.3) APTT (26-36) SECONDS Sodium 125 L (137-145) mmol/L Potassium 3.2 L (3.4-5.1) mmol/L Chloride 91 L (98-107) mmol/L Carbon Dioxide 21 L (22-32) mmol/L BUN 56 H (7-17) mg/dL Creatinine 4.50 H (0.52-1.04) mg/dL Estimated GFR 9 L (>60) mL/min BUN/Creatinine Ratio 12.4 (6-22) Glucose 120 H (80-110) mg/dL Lactate 1.9 (0.7-2.1) mmol/L Calcium 7.2 L (8.4-10.2) mg/dL Magnesium (1.6-2.3) mg/dL Total Bilirubin 0.7 (0.2-1.3) mg/dL AST 25 (14-36) IU/L ALT 21 (<35) IU/L Alkaline Phosphatase 92 (38-126) U/L Ammonia (9-30) umol/L Total Creatine Kinase 33 (30-135) U/L CK-MB (CK-2) TNP CK-MB (CK-2) Rel Index TNP Troponin I 0.043 H (0.01-0.034) ng/mL C-Reactive Protein (<1.0) mg/dL Total Protein 4.7 L (6.3-8.2) g/dL Albumin 2.3 L (3.5-5.0) g/dL Globulin 2.4 (1.7-4.1) g/dL Albumin/Globulin Ratio 1.0 (1.0-2.8) Lipase (23-300) U/L Procalcitonin 1.11 H (<0.5) ng/mL Urine Color Urine Appearance Urine pH (4.5-8.0) Ur Specific [place] (1.000-1.035) Urine Protein (Negative) Urine Glucose (UA) (Negative) g/dL Urine Ketones (NEGATIVE) Urine Occult Blood (Negative) Urine Nitrate (Negative) Urine Bilirubin (NEGATIVE) Ur Bilirubin Confirm (Negative) Urine Urobilinogen (0.2) E.U./dL Ur Leukocyte Esterase (NEGATIVE) Urine RBC (0-5/HPF) Urine WBC (0-5/HPF) Ur Squamous Epith Cells (0-5/HPF) Urine Bacteria (None) Ur Culture Indicated? U Opiates 300ng/mL cut (Negative) Ur Oxycodone Screen (Negative) Urine Methadone Screen (Negative) Ur Barbiturates Screen (Negative) U Tricyclic Antidepress (Negative) Ur Phencyclidine Scrn (Negative) Ur Amphetamines Screen (Negative) U Methamphetamines Scrn (Negative) Ur MDMA Scrn (Ecstasy) (Negative) U Benzodiazepines Scrn (Negative) Urine Cocaine Screen (Negative) U Marijuana (THC) Screen (Negative) Ethyl Alcohol ( - 10) mg/dL Chlamy pneumoniae PCR (Not Detect) Adenovirus (PCR) (Not Detect) B. pertussis DNA (PCR) (Not Detecte) B.parapertussis DNA PCR (Not Detecte) Coronavirus OC43 (PCR) (Not Detect) Coronavirus HKU1 (PCR) (Not Detect) Coronavirus 229E (PCR) (Not Detect) SARS-CoV-2 (PCR) (Not Detecte) Coronavirus NL63 (PCR) (Not Detect) Human Metapneumovir PCR (Not Detect) Influenza Type A (PCR) (Not Detect) Influenza Type B (PCR) (Not Detect) M. pneumoniae (PCR) (Not Detect) Parainfluenza 1 (PCR) (Not Detect) Parainfluenza 2 (PCR) (Not Detect) Parainfluenza 3 (PCR) (Not Detect) Parainfluenza 4 (PCR) (Not Detect) RSV (PCR) (Not Detect) Entero/Rhino (PCR) (Not Detect) 12/15/22 12/15/22 12/15/22 Range/Units 03:50 03:50 03:50 WBC 14.5 H (4.5-11.0) X10^3/uL RBC 2.50 L (4.0-5.2) X10^6/uL Hgb 7.8 L (12.0-16.0) g/dL Hct 24.6 L (36-46) % MCV 98.3 (80-100) fL MCH 31.2 (26-34) PG MCHC 31.7 (30-36) % RDW 19.2 H (11.6-14.8) % Plt Count 327 (150-400) X10^3/uL Neut % (Auto) 93.3 H (50-75) % Lymph % (Auto) 1.8 L (25-40) % [place] % (Auto) 4.2 (3-14) % Eos % (Auto) 0.2 L (2-4) % Baso % (Auto) 0.5 (0-2) % Neut # (Auto) 47273 H (1360-6144) /uL Lymph # (Auto) 300 L (1886-0189) /uL [place] # (Auto) 600 (0-900) /uL Eos # (Auto) 0 (0-450) /uL Baso # (Auto) 100 (0-100) /uL ESR (0-20) MM/HR PT 124.8 H D (10.1-12.7) SECONDS INR 10.6 H* (0.9-1.3) APTT (26-36) SECONDS Sodium 125 L (137-145) mmol/L Potassium 2.9 L (3.4-5.1) mmol/L Chloride 88 L (98-107) mmol/L Carbon Dioxide 23 (22-32) mmol/L BUN 49 H (7-17) mg/dL Creatinine 4.51 H (0.52-1.04) mg/dL Estimated GFR 9 L (>60) mL/min BUN/Creatinine Ratio 10.9 (6-22) Glucose 135 H (80-110) mg/dL Lactate (0.7-2.1) mmol/L Calcium 7.2 L (8.4-10.2) mg/dL Magnesium (1.6-2.3) mg/dL Total Bilirubin 0.5 (0.2-1.3) mg/dL AST 27 (14-36) IU/L ALT 23 (<35) IU/L Alkaline Phosphatase 105 (38-126) U/L Ammonia (9-30) umol/L Total Creatine Kinase (30-135) U/L CK-MB (CK-2) CK-MB (CK-2) Rel Index Troponin I (0.01-0.034) ng/mL C-Reactive Protein (<1.0) mg/dL Total Protein 5.0 L (6.3-8.2) g/dL Albumin 2.5 L (3.5-5.0) g/dL Globulin 2.5 (1.7-4.1) g/dL Albumin/Globulin Ratio 1.0 (1.0-2.8) Lipase (23-300) U/L Procalcitonin (<0.5) ng/mL Urine Color Urine Appearance Urine pH (4.5-8.0) Ur Specific [place] (1.000-1.035) Urine Protein (Negative) Urine Glucose (UA) (Negative) g/dL Urine Ketones (NEGATIVE) Urine Occult Blood (Negative) Urine Nitrate (Negative) Urine Bilirubin (NEGATIVE) Ur Bilirubin Confirm (Negative) Urine Urobilinogen (0.2) E.U./dL Ur Leukocyte Esterase (NEGATIVE) Urine RBC (0-5/HPF) Urine WBC (0-5/HPF) Ur Squamous Epith Cells (0-5/HPF) Urine Bacteria (None) Ur Culture Indicated? U Opiates 300ng/mL cut (Negative) Ur Oxycodone Screen (Negative) Urine Methadone Screen (Negative) Ur Barbiturates Screen (Negative) U Tricyclic Antidepress (Negative) Ur Phencyclidine Scrn (Negative) Ur Amphetamines Screen (Negative) U Methamphetamines Scrn (Negative) Ur MDMA Scrn (Ecstasy) (Negative) U Benzodiazepines Scrn (Negative) Urine Cocaine Screen (Negative) U Marijuana (THC) Screen (Negative) Ethyl Alcohol ( - 10) mg/dL Chlamy pneumoniae PCR (Not Detect) Adenovirus (PCR) (Not Detect) B. pertussis DNA (PCR) (Not Detecte) B.parapertussis DNA PCR (Not Detecte) Coronavirus OC43 (PCR) (Not Detect) Coronavirus HKU1 (PCR) (Not Detect) Coronavirus 229E (PCR) (Not Detect) SARS-CoV-2 (PCR) (Not Detecte) Coronavirus NL63 (PCR) (Not Detect) Human Metapneumovir PCR (Not Detect) Influenza Type A (PCR) (Not Detect) Influenza Type B (PCR) (Not Detect) M. pneumoniae (PCR) (Not Detect) Parainfluenza 1 (PCR) (Not Detect) Parainfluenza 2 (PCR) (Not Detect) Parainfluenza 3 (PCR) (Not Detect) Parainfluenza 4 (PCR) (Not Detect) RSV (PCR) (Not Detect) Entero/Rhino (PCR) (Not Detect) 12/15/22 12/15/22 12/15/22 Range/Units 03:50 03:50 08:15 WBC (4.5-11.0) X10^3/uL RBC (4.0-5.2) X10^6/uL Hgb (12.0-16.0) g/dL Hct (36-46) % MCV (80-100) fL MCH (26-34) PG MCHC (30-36) % RDW (11.6-14.8) % Plt Count (150-400) X10^3/uL Neut % (Auto) (50-75) % Lymph % (Auto) (25-40) % [place] % (Auto) (3-14) % Eos % (Auto) (2-4) % Baso % (Auto) (0-2) % Neut # (Auto) (5555-1051) /uL Lymph # (Auto) (2586-9933) /uL [place] # (Auto) (0-900) /uL Eos # (Auto) (0-450) /uL Baso # (Auto) (0-100) /uL ESR 90 H (0-20) MM/HR PT (10.1-12.7) SECONDS INR (0.9-1.3) APTT (26-36) SECONDS Sodium (137-145) mmol/L Potassium (3.4-5.1) mmol/L Chloride (98-107) mmol/L Carbon Dioxide (22-32) mmol/L BUN (7-17) mg/dL Creatinine (0.52-1.04) mg/dL Estimated GFR (>60) mL/min BUN/Creatinine Ratio (6-22) Glucose (80-110) mg/dL Lactate (0.7-2.1) mmol/L Calcium (8.4-10.2) mg/dL Magnesium (1.6-2.3) mg/dL Total Bilirubin (0.2-1.3) mg/dL AST (14-36) IU/L ALT (<35) IU/L Alkaline Phosphatase (38-126) U/L Ammonia (9-30) umol/L Total Creatine Kinase (30-135) U/L CK-MB (CK-2) CK-MB (CK-2) Rel Index Troponin I (0.01-0.034) ng/mL C-Reactive Protein 7.4 H (<1.0) mg/dL Total Protein (6.3-8.2) g/dL Albumin (3.5-5.0) g/dL Globulin (1.7-4.1) g/dL Albumin/Globulin Ratio (1.0-2.8) Lipase (23-300) U/L Procalcitonin (<0.5) ng/mL Urine Color Urine Appearance Urine pH (4.5-8.0) Ur Specific [place] (1.000-1.035) Urine Protein (Negative) Urine Glucose (UA) (Negative) g/dL Urine Ketones (NEGATIVE) Urine Occult Blood (Negative) Urine Nitrate (Negative) Urine Bilirubin (NEGATIVE) Ur Bilirubin Confirm (Negative) Urine Urobilinogen (0.2) E.U./dL Ur Leukocyte Esterase (NEGATIVE) Urine RBC (0-5/HPF) Urine WBC (0-5/HPF) Ur Squamous Epith Cells (0-5/HPF) Urine Bacteria (None) Ur Culture Indicated? U Opiates 300ng/mL cut (Negative) Ur Oxycodone Screen (Negative) Urine Methadone Screen (Negative) Ur Barbiturates Screen (Negative) U Tricyclic Antidepress (Negative) Ur Phencyclidine Scrn (Negative) Ur Amphetamines Screen (Negative) U Methamphetamines Scrn (Negative) Ur MDMA Scrn (Ecstasy) (Negative) U Benzodiazepines Scrn (Negative) Urine Cocaine Screen (Negative) U Marijuana (THC) Screen (Negative) Ethyl Alcohol ( - 10) mg/dL Chlamy pneumoniae PCR Not detected (Not Detect) Adenovirus (PCR) Not detected (Not Detect) B. pertussis DNA (PCR) Not detected (Not Detecte) B.parapertussis DNA PCR Not detected (Not Detecte) Coronavirus OC43 (PCR) Not detected (Not Detect) Coronavirus HKU1 (PCR) Not detected (Not Detect) Coronavirus 229E (PCR) Not detected (Not Detect) SARS-CoV-2 (PCR) Not detected (Not Detecte) Coronavirus NL63 (PCR) Not detected (Not Detect) Human Metapneumovir PCR Not detected (Not Detect) Influenza Type A (PCR) Not detected (Not Detect) Influenza Type B (PCR) Not detected (Not Detect) M. pneumoniae (PCR) Not detected (Not Detect) Parainfluenza 1 (PCR) Not detected (Not Detect) Parainfluenza 2 (PCR) Not detected (Not Detect) Parainfluenza 3 (PCR) Not detected (Not Detect) Parainfluenza 4 (PCR) Not detected (Not Detect) RSV (PCR) Not detected (Not Detect) Entero/Rhino (PCR) Not detected (Not Detect) 12/15/22 12/15/22 12/15/22 Range/Units 08:25 08:25 08:25 WBC 14.7 H (4.5-11.0) X10^3/uL RBC 2.31 L (4.0-5.2) X10^6/uL Hgb 7.2 L (12.0-16.0) g/dL Hct 22.4 L (36-46) % MCV 97.0 (80-100) fL MCH 31.4 (26-34) PG MCHC 32.4 (30-36) % RDW 18.5 H (11.6-14.8) % Plt Count 328 (150-400) X10^3/uL Neut % (Auto) 91.9 H (50-75) % Lymph % (Auto) 1.5 L (25-40) % [place] % (Auto) 6.2 (3-14) % Eos % (Auto) 0.2 L (2-4) % Baso % (Auto) 0.2 (0-2) % Neut # (Auto) 51373 H (6573-7231) /uL Lymph # (Auto) 200 L (6072-1252) /uL [place] # (Auto) 900 (0-900) /uL Eos # (Auto) 0 (0-450) /uL Baso # (Auto) 0 (0-100) /uL ESR (0-20) MM/HR PT 93.6 H D (10.1-12.7) SECONDS INR 8.0 H* (0.9-1.3) APTT (26-36) SECONDS Sodium 122 L (137-145) mmol/L Potassium 3.1 L (3.4-5.1) mmol/L Chloride 87 L (98-107) mmol/L Carbon Dioxide 23 (22-32) mmol/L BUN 46 H (7-17) mg/dL Creatinine 3.96 H (0.52-1.04) mg/dL Estimated GFR 11 L (>60) mL/min BUN/Creatinine Ratio 11.6 (6-22) Glucose 108 (80-110) mg/dL Lactate (0.7-2.1) mmol/L Calcium 7.2 L (8.4-10.2) mg/dL Magnesium (1.6-2.3) mg/dL Total Bilirubin 0.4 (0.2-1.3) mg/dL AST 30 (14-36) IU/L ALT 21 (<35) IU/L Alkaline Phosphatase 93 (38-126) U/L Ammonia (9-30) umol/L Total Creatine Kinase (30-135) U/L CK-MB (CK-2) CK-MB (CK-2) Rel Index Troponin I (0.01-0.034) ng/mL C-Reactive Protein (<1.0) mg/dL Total Protein 4.7 L (6.3-8.2) g/dL Albumin 2.3 L (3.5-5.0) g/dL Globulin 2.4 (1.7-4.1) g/dL Albumin/Globulin Ratio 1.0 (1.0-2.8) Lipase (23-300) U/L Procalcitonin (<0.5) ng/mL Urine Color Urine Appearance Urine pH (4.5-8.0) Ur Specific [place] (1.000-1.035) Urine Protein (Negative) Urine Glucose (UA) (Negative) g/dL Urine Ketones (NEGATIVE) Urine Occult Blood (Negative) Urine Nitrate (Negative) Urine Bilirubin (NEGATIVE) Ur Bilirubin Confirm (Negative) Urine Urobilinogen (0.2) E.U./dL Ur Leukocyte Esterase (NEGATIVE) Urine RBC (0-5/HPF) Urine WBC (0-5/HPF) Ur Squamous Epith Cells (0-5/HPF) Urine Bacteria (None) Ur Culture Indicated? U Opiates 300ng/mL cut (Negative) Ur Oxycodone Screen (Negative) Urine Methadone Screen (Negative) Ur Barbiturates Screen (Negative) U Tricyclic Antidepress (Negative) Ur Phencyclidine Scrn (Negative) Ur Amphetamines Screen (Negative) U Methamphetamines Scrn (Negative) Ur MDMA Scrn (Ecstasy) (Negative) U Benzodiazepines Scrn (Negative) Urine Cocaine Screen (Negative) U Marijuana (THC) Screen (Negative) Ethyl Alcohol ( - 10) mg/dL Chlamy pneumoniae PCR (Not Detect) Adenovirus (PCR) (Not Detect) B. pertussis DNA (PCR) (Not Detecte) B.parapertussis DNA PCR (Not Detecte) Coronavirus OC43 (PCR) (Not Detect) Coronavirus HKU1 (PCR) (Not Detect) Coronavirus 229E (PCR) (Not Detect) SARS-CoV-2 (PCR) (Not Detecte) Coronavirus NL63 (PCR) (Not Detect) Human Metapneumovir PCR (Not Detect) Influenza Type A (PCR) (Not Detect) Influenza Type B (PCR) (Not Detect) M. pneumoniae (PCR) (Not Detect) Parainfluenza 1 (PCR) (Not Detect) Parainfluenza 2 (PCR) (Not Detect) Parainfluenza 3 (PCR) (Not Detect) Parainfluenza 4 (PCR) (Not Detect) RSV (PCR) (Not Detect) Entero/Rhino (PCR) (Not Detect) 12/15/22 12/15/22 12/15/22 Range/Units 08:25 12:55 12:55 WBC 11.4 H (4.5-11.0) X10^3/uL RBC 2.16 L (4.0-5.2) X10^6/uL Hgb 6.8 L* (12.0-16.0) g/dL Hct 21.0 L (36-46) % MCV 97.5 (80-100) fL MCH 31.7 (26-34) PG MCHC 32.5 (30-36) % RDW 18.5 H (11.6-14.8) % Plt Count 242 (150-400) X10^3/uL Neut % (Auto) 88.9 H (50-75) % Lymph % (Auto) 3.4 L (25-40) % [place] % (Auto) 6.9 (3-14) % Eos % (Auto) 0.7 L (2-4) % Baso % (Auto) 0.1 (0-2) % Neut # (Auto) 93885 H (6928-8519) /uL Lymph # (Auto) 400 L (1948-1186) /uL [place] # (Auto) 800 (0-900) /uL Eos # (Auto) 100 (0-450) /uL Baso # (Auto) 0 (0-100) /uL ESR (0-20) MM/HR PT (10.1-12.7) SECONDS INR (0.9-1.3) APTT (26-36) SECONDS Sodium 121 L (137-145) mmol/L Potassium 3.2 L (3.4-5.1) mmol/L Chloride 86 L (98-107) mmol/L Carbon Dioxide 24 (22-32) mmol/L BUN 46 H (7-17) mg/dL Creatinine 4.12 H (0.52-1.04) mg/dL Estimated GFR 10 L (>60) mL/min BUN/Creatinine Ratio 11.2 (6-22) Glucose 118 H (80-110) mg/dL Lactate (0.7-2.1) mmol/L Calcium 7.1 L (8.4-10.2) mg/dL Magnesium (1.6-2.3) mg/dL Total Bilirubin (0.2-1.3) mg/dL AST (14-36) IU/L ALT (<35) IU/L Alkaline Phosphatase (38-126) U/L Ammonia (9-30) umol/L Total Creatine Kinase (30-135) U/L CK-MB (CK-2) CK-MB (CK-2) Rel Index Troponin I 0.790 H* (0.01-0.034) ng/mL C-Reactive Protein (<1.0) mg/dL Total Protein (6.3-8.2) g/dL Albumin (3.5-5.0) g/dL Globulin (1.7-4.1) g/dL Albumin/Globulin Ratio (1.0-2.8) Lipase (23-300) U/L Procalcitonin (<0.5) ng/mL Urine Color Urine Appearance Urine pH (4.5-8.0) Ur Specific [place] (1.000-1.035) Urine Protein (Negative) Urine Glucose (UA) (Negative) g/dL Urine Ketones (NEGATIVE) Urine Occult Blood (Negative) Urine Nitrate (Negative) Urine Bilirubin (NEGATIVE) Ur Bilirubin Confirm (Negative) Urine Urobilinogen (0.2) E.U./dL Ur Leukocyte Esterase (NEGATIVE) Urine RBC (0-5/HPF) Urine WBC (0-5/HPF) Ur Squamous Epith Cells (0-5/HPF) Urine Bacteria (None) Ur Culture Indicated? U Opiates 300ng/mL cut (Negative) Ur Oxycodone Screen (Negative) Urine Methadone Screen (Negative) Ur Barbiturates Screen (Negative) U Tricyclic Antidepress (Negative) Ur Phencyclidine Scrn (Negative) Ur Amphetamines Screen (Negative) U Methamphetamines Scrn (Negative) Ur MDMA Scrn (Ecstasy) (Negative) U Benzodiazepines Scrn (Negative) Urine Cocaine Screen (Negative) U Marijuana (THC) Screen (Negative) Ethyl Alcohol ( - 10) mg/dL Chlamy pneumoniae PCR (Not Detect) Adenovirus (PCR) (Not Detect) B. pertussis DNA (PCR) (Not Detecte) B.parapertussis DNA PCR (Not Detecte) Coronavirus OC43 (PCR) (Not Detect) Coronavirus HKU1 (PCR) (Not Detect) Coronavirus 229E (PCR) (Not Detect) SARS-CoV-2 (PCR) (Not Detecte) Coronavirus NL63 (PCR) (Not Detect) Human Metapneumovir PCR (Not Detect) Influenza Type A (PCR) (Not Detect) Influenza Type B (PCR) (Not Detect) M. pneumoniae (PCR) (Not Detect) Parainfluenza 1 (PCR) (Not Detect) Parainfluenza 2 (PCR) (Not Detect) Parainfluenza 3 (PCR) (Not Detect) Parainfluenza 4 (PCR) (Not Detect) RSV (PCR) (Not Detect) Entero/Rhino (PCR) (Not Detect) 12/15/22 Range/Units 12:55 WBC (4.5-11.0) X10^3/uL RBC (4.0-5.2) X10^6/uL Hgb (12.0-16.0) g/dL Hct (36-46) % MCV (80-100) fL MCH (26-34) PG MCHC (30-36) % RDW (11.6-14.8) % Plt Count (150-400) X10^3/uL Neut % (Auto) (50-75) % Lymph % (Auto) (25-40) % [place] % (Auto) (3-14) % Eos % (Auto) (2-4) % Baso % (Auto) (0-2) % Neut # (Auto) (5609-4015) /uL Lymph # (Auto) (8531-3139) /uL [place] # (Auto) (0-900) /uL Eos # (Auto) (0-450) /uL Baso # (Auto) (0-100) /uL ESR (0-20) MM/HR PT (10.1-12.7) SECONDS INR (0.9-1.3) APTT (26-36) SECONDS Sodium (137-145) mmol/L Potassium (3.4-5.1) mmol/L Chloride (98-107) mmol/L Carbon Dioxide (22-32) mmol/L BUN (7-17) mg/dL Creatinine (0.52-1.04) mg/dL Estimated GFR (>60) mL/min BUN/Creatinine Ratio (6-22) Glucose (80-110) mg/dL Lactate (0.7-2.1) mmol/L Calcium (8.4-10.2) mg/dL Magnesium 0.9 L* (1.6-2.3) mg/dL Total Bilirubin (0.2-1.3) mg/dL AST (14-36) IU/L ALT (<35) IU/L Alkaline Phosphatase (38-126) U/L Ammonia (9-30) umol/L Total Creatine Kinase (30-135) U/L CK-MB (CK-2) CK-MB (CK-2) Rel Index Troponin I (0.01-0.034) ng/mL C-Reactive Protein (<1.0) mg/dL Total Protein (6.3-8.2) g/dL Albumin (3.5-5.0) g/dL Globulin (1.7-4.1) g/dL Albumin/Globulin Ratio (1.0-2.8) Lipase (23-300) U/L Procalcitonin (<0.5) ng/mL Urine Color Urine Appearance Urine pH (4.5-8.0) Ur Specific [place] (1.000-1.035) Urine Protein (Negative) Urine Glucose (UA) (Negative) g/dL Urine Ketones (NEGATIVE) Urine Occult Blood (Negative) Urine Nitrate (Negative) Urine Bilirubin (NEGATIVE) Ur Bilirubin Confirm (Negative) Urine Urobilinogen (0.2) E.U./dL Ur Leukocyte Esterase (NEGATIVE) Urine RBC (0-5/HPF) Urine WBC (0-5/HPF) Ur Squamous Epith Cells (0-5/HPF) Urine Bacteria (None) Ur Culture Indicated? U Opiates 300ng/mL cut (Negative) Ur Oxycodone Screen (Negative) Urine Methadone Screen (Negative) Ur Barbiturates Screen (Negative) U Tricyclic Antidepress (Negative) Ur Phencyclidine Scrn (Negative) Ur Amphetamines Screen (Negative) U Methamphetamines Scrn (Negative) Ur MDMA Scrn (Ecstasy) (Negative) U Benzodiazepines Scrn (Negative) Urine Cocaine Screen (Negative) U Marijuana (THC) Screen (Negative) Ethyl Alcohol ( - 10) mg/dL Chlamy pneumoniae PCR (Not Detect) Adenovirus (PCR) (Not Detect) B. pertussis DNA (PCR) (Not Detecte) B.parapertussis DNA PCR (Not Detecte) Coronavirus OC43 (PCR) (Not Detect) Coronavirus HKU1 (PCR) (Not Detect) Coronavirus 229E (PCR) (Not Detect) SARS-CoV-2 (PCR) (Not Detecte) Coronavirus NL63 (PCR) (Not Detect) Human Metapneumovir PCR (Not Detect) Influenza Type A (PCR) (Not Detect) Influenza Type B (PCR) (Not Detect) M. pneumoniae (PCR) (Not Detect) Parainfluenza 1 (PCR) (Not Detect) Parainfluenza 2 (PCR) (Not Detect) Parainfluenza 3 (PCR) (Not Detect) Parainfluenza 4 (PCR) (Not Detect) RSV (PCR) (Not Detect) Entero/Rhino (PCR) (Not Detect) Point of Care Testing Glucose POC [address] scan - head: Radiologist's Impression: [address] [address] [address] Scan Report Signed Patient: Yanni Maurice MR#: [id number] : 1940 Acct:[id number] Age/Sex: 82 / F Date of Service: 12/14/22 Loc: ED Accession Number: [id number] ?? Procedure: CT head/brain wo con Ordering Provider: Lo Hampton D.O. PROCEDURE:? CT HEAD/BRAIN WO CON ? INDICATIONS:? vomiting, elevated inr, hallucinations ? TECHNIQUE:? Noncontrast 4.5 mm thick angled axial sections acquired from the foramen magnum to the vertex, with coronal and sagittal reformats.? For radiation dose reduction, the following was used:? automated exposure control, adjustment of mA and/or kV according to patient size.? ? COMPARISON:? [facility], CT, CT HEAD/BRAIN WO CON, 10/18/2022, 18:40. ? FINDINGS:? Image quality:? Excellent.? ? CSF spaces:? Basal cisterns are patent.? No extra-axial fluid collections.? The ventricles are symmetric in size and shape.? ? Brain:? No intracranial bleeds or masses.? There is cerebral volume loss for age, with resultant ventricular and sulcal prominence.? There are periventricular and deep white matter chronic small vessel ischemic changes.? There is intracranial internal carotid artery atherosclerosis.? ? Skull and face:? Calvarium and visualized facial bones appear intact, without suspicious lesions.? ? Sinuses:? Visualized sinuses and mastoids are clear.? ? IMPRESSION:? 1. No acute intracranial abnormality. 2. Cerebral volume loss and small vessel ischemic changes.? Dictated by: Vini Walker M.D. on 12/14/2022 at 14:58 ? ? Approved by: Vini Walekr M.D. on 12/14/2022 at 15:01?? Chest x-ray: Radiologist's Impression: [address] [address] XRay Report Signed Patient: Yanni Maurice MR#: [id number] : 1940 Acct:[id number] Age/Sex: 82 / F Date of Service: 12/14/22 Loc: ED Accession Number: [id number] ?? Procedure: XR chest 1V Ordering Provider: Todd Rivera MD PROCEDURE:? XR CHEST 1V ? INDICATIONS:? altered mental status ? TECHNIQUE:? One view of the chest was acquired.? ? COMPARISON:? [facility], CR, XR CHEST 1V, 11/11/2022, 13:46. ? FINDINGS:? ? Surgical changes and devices:? Right port appears well position with the tip in the SVC. ? Lungs and pleura:? Lungs are clear.? No pleural effusions or pneumothorax.? Interstitial prominence is unchanged compared to the prior study and is likely chronic.? ? Mediastinum:? Mediastinal contours appear normal.? Heart size is normal.? ? Bones and chest wall:? No suspicious bony lesions.? Overlying soft tissues appear unremarkable.? ? IMPRESSION:? No acute abnormality ? ? Dictated by: Vini Walker M.D. on 12/14/2022 at 11:55 ? ? Approved by: Vini Walker M.D. on 12/14/2022 at 11:57?? ECG Data Attestation: I personally reviewed and interpreted this ECG as follows: Interpretation: AFib rate of 88 OH 142 QTC of 554. No acute ST changes appreciated left axis deviation, left bundle-branch. Patient has prior from 11/11/2022 which appears similar. [facility] Narrative Medical decision making narrative: This is a 82-year-old female presents with intermittent hallucinations from wound care for her chronic wounds on her bilateral lower extremities. Patient is hypotensive but at her normal baseline. Patient recognize that she does sometimes have hallucinations, patient's hemoglobin is 10, platelets are 213 with a white count of 9.5. INR is quite elevated at 7.8, sodium 127, chloride 91 BUN 56 creatinine 4.7, potassium is appropriate at 3.4, ammonia is negative with low albumin. Procalcitonin is elevated 1.21 but has been elevated on all prior visits as well so unclear if this is truly a bacterial etiology. Patient is COVID negative. Head CT was obtained secondary to alteration in mental status and elevated INR it is negative for acute change. Chest x-ray does not show acute abnormality. CT abdomen and pelvis shows gastric mucosal thickening segmental thickening duodenum and proximal jejunum suggestive of gastroenteritis some change in the cecum for mild colitis, nodular contour suggesting cirrhosis multiple 60 changes in the pancreas benign cyst versus IPMN patulous distal esophagus could be impacted fluid or mass recommended EGD, atrophic kidneys consistent with renal disease but can not rule out solid renal mass. Trace bilateral pleural effusions. Patient's urine does not show signs of infection. Patient is positive for oxycodone and benzodiazepines this could contribute to hallucinations. ETOH is negative. Discussed with patient and family her recent codeine use, Benadryl good possibly be combined to cause hallucinations but she also has had vomiting for the past 2 days she does have some changes on her imaging she does use peritoneal dialysis. Patient's labs show an elevated procalcitonin but unclear if this is truly infectious source. Pressures have been fairly consistent 90s systolic which is patient has normal but has had dips. She would a 250 cc bolus dose of IV antibiotic, patient received 750 mg x 1 and then should receive 500 mg Q 48 with her peritoneal dialysis. Discussed with patient's family at like to keep her for observation but we do not have Nephrology available multiple facilities were called no bed availability, patient placed on [facility] regional hotline and signed out to Dr. Billings while awaiting possible placement. Patient was given some orals and has been tolerating in department. She has not had any diarrhea or stool output for GI panel. <Veronica Billings, DO - Last Filed: 12/17/22 08:09> Lab Data Labs: Lab Results 12/14/22 12/14/22 12/14/22 Range/Units 10:58 10:58 10:58 WBC 9.5 (4.5-11.0) X10^3/uL RBC 3.21 L (4.0-5.2) X10^6/uL Hgb 10.2 L (12.0-16.0) g/dL Hct 31.2 L (36-46) % MCV 97.0 (80-100) fL MCH 31.8 (26-34) PG MCHC 32.8 (30-36) % RDW 18.5 H (11.6-14.8) % Plt Count 213 (150-400) X10^3/uL Neut % (Auto) 90.7 H (50-75) % Lymph % (Auto) 2.1 L (25-40) % [place] % (Auto) 5.1 (3-14) % Eos % (Auto) 0.9 L (2-4) % Baso % (Auto) 1.2 (0-2) % Neut # (Auto) 8600 H (5929-4953) /uL Lymph # (Auto) 200 L (0608-4433) /uL [place] # (Auto) 500 (0-900) /uL Eos # (Auto) 100 (0-450) /uL Baso # (Auto) 100 (0-100) /uL ESR (0-20) MM/HR PT (10.1-12.7) SECONDS INR (0.9-1.3) APTT (26-36) SECONDS Sodium 127 L (137-145) mmol/L Potassium 3.4 (3.4-5.1) mmol/L Chloride 91 L (98-107) mmol/L Carbon Dioxide 27 (22-32) mmol/L BUN 56 H (7-17) mg/dL Creatinine 4.70 H (0.52-1.04) mg/dL Estimated GFR 9 L (>60) mL/min BUN/Creatinine Ratio 11.9 (6-22) Glucose 93 (80-110) mg/dL Lactate (0.7-2.1) mmol/L Calcium 7.4 L (8.4-10.2) mg/dL Magnesium (1.6-2.3) mg/dL Total Bilirubin 0.6 (0.2-1.3) mg/dL AST 31 (14-36) IU/L ALT 18 (<35) IU/L Alkaline Phosphatase 104 (38-126) U/L Ammonia < 9 L (9-30) umol/L Total Creatine Kinase (30-135) U/L CK-MB (CK-2) CK-MB (CK-2) Rel Index Troponin I (0.01-0.034) ng/mL C-Reactive Protein (<1.0) mg/dL Total Protein 4.7 L (6.3-8.2) g/dL Albumin 2.3 L (3.5-5.0) g/dL Globulin 2.4 (1.7-4.1) g/dL Albumin/Globulin Ratio 1.0 (1.0-2.8) Lipase (23-300) U/L Procalcitonin (<0.5) ng/mL Urine Color Urine Appearance Urine pH (4.5-8.0) Ur Specific [place] (1.000-1.035) Urine Protein (Negative) Urine Glucose (UA) (Negative) g/dL Urine Ketones (NEGATIVE) Urine Occult Blood (Negative) Urine Nitrate (Negative) Urine Bilirubin (NEGATIVE) Ur Bilirubin Confirm (Negative) Urine Urobilinogen (0.2) E.U./dL Ur Leukocyte Esterase (NEGATIVE) Urine RBC (0-5/HPF) Urine WBC (0-5/HPF) Ur Squamous Epith Cells (0-5/HPF) Urine Bacteria (None) Ur Culture Indicated? U Opiates 300ng/mL cut (Negative) Ur Oxycodone Screen (Negative) Urine Methadone Screen (Negative) Ur Barbiturates Screen (Negative) U Tricyclic Antidepress (Negative) Ur Phencyclidine Scrn (Negative) Ur Amphetamines Screen (Negative) U Methamphetamines Scrn (Negative) Ur MDMA Scrn (Ecstasy) (Negative) U Benzodiazepines Scrn (Negative) Urine Cocaine Screen (Negative) U Marijuana (THC) Screen (Negative) Ethyl Alcohol ( - 10) mg/dL Chlamy pneumoniae PCR (Not Detect) Adenovirus (PCR) (Not Detect) B. pertussis DNA (PCR) (Not Detecte) B.parapertussis DNA PCR (Not Detecte) Coronavirus OC43 (PCR) (Not Detect) Coronavirus HKU1 (PCR) (Not Detect) Coronavirus 229E (PCR) (Not Detect) SARS-CoV-2 (PCR) (Not Detecte) Coronavirus NL63 (PCR) (Not Detect) Human Metapneumovir PCR (Not Detect) Influenza Type A (PCR) (Not Detect) Influenza Type B (PCR) (Not Detect) M. pneumoniae (PCR) (Not Detect) Parainfluenza 1 (PCR) (Not Detect) Parainfluenza 2 (PCR) (Not Detect) Parainfluenza 3 (PCR) (Not Detect) Parainfluenza 4 (PCR) (Not Detect) RSV (PCR) (Not Detect) Entero/Rhino (PCR) (Not Detect) 12/14/22 12/14/22 12/14/22 Range/Units 10:58 10:58 10:58 WBC (4.5-11.0) X10^3/uL RBC (4.0-5.2) X10^6/uL Hgb (12.0-16.0) g/dL Hct (36-46) % MCV (80-100) fL MCH (26-34) PG MCHC (30-36) % RDW (11.6-14.8) % Plt Count (150-400) X10^3/uL Neut % (Auto) (50-75) % Lymph % (Auto) (25-40) % [place] % (Auto) (3-14) % Eos % (Auto) (2-4) % Baso % (Auto) (0-2) % Neut # (Auto) (8863-8702) /uL Lymph # (Auto) (5942-5326) /uL [place] # (Auto) (0-900) /uL Eos # (Auto) (0-450) /uL Baso # (Auto) (0-100) /uL ESR (0-20) MM/HR PT 91.8 H (10.1-12.7) SECONDS INR 7.8 H* (0.9-1.3) APTT 57 H (26-36) SECONDS Sodium (137-145) mmol/L Potassium (3.4-5.1) mmol/L Chloride (98-107) mmol/L Carbon Dioxide (22-32) mmol/L BUN (7-17) mg/dL Creatinine (0.52-1.04) mg/dL Estimated GFR (>60) mL/min BUN/Creatinine Ratio (6-22) Glucose (80-110) mg/dL Lactate 1.3 (0.7-2.1) mmol/L Calcium (8.4-10.2) mg/dL Magnesium (1.6-2.3) mg/dL Total Bilirubin (0.2-1.3) mg/dL AST (14-36) IU/L ALT (<35) IU/L Alkaline Phosphatase (38-126) U/L Ammonia (9-30) umol/L Total Creatine Kinase (30-135) U/L CK-MB (CK-2) CK-MB (CK-2) Rel Index Troponin I (0.01-0.034) ng/mL C-Reactive Protein (<1.0) mg/dL Total Protein (6.3-8.2) g/dL Albumin (3.5-5.0) g/dL Globulin (1.7-4.1) g/dL Albumin/Globulin Ratio (1.0-2.8) Lipase (23-300) U/L Procalcitonin (<0.5) ng/mL Urine Color Urine Appearance Urine pH (4.5-8.0) Ur Specific [place] (1.000-1.035) Urine Protein (Negative) Urine Glucose (UA) (Negative) g/dL Urine Ketones (NEGATIVE) Urine Occult Blood (Negative) Urine Nitrate (Negative) Urine Bilirubin (NEGATIVE) Ur Bilirubin Confirm (Negative) Urine Urobilinogen (0.2) E.U./dL Ur Leukocyte Esterase (NEGATIVE) Urine RBC (0-5/HPF) Urine WBC (0-5/HPF) Ur Squamous Epith Cells (0-5/HPF) Urine Bacteria (None) Ur Culture Indicated? U Opiates 300ng/mL cut (Negative) Ur Oxycodone Screen (Negative) Urine Methadone Screen (Negative) Ur Barbiturates Screen (Negative) U Tricyclic Antidepress (Negative) Ur Phencyclidine Scrn (Negative) Ur Amphetamines Screen (Negative) U Methamphetamines Scrn (Negative) Ur MDMA Scrn (Ecstasy) (Negative) U Benzodiazepines Scrn (Negative) Urine Cocaine Screen (Negative) U Marijuana (THC) Screen (Negative) Ethyl Alcohol < 10 ( - 10) mg/dL Chlamy pneumoniae PCR (Not Detect) Adenovirus (PCR) (Not Detect) B. pertussis DNA (PCR) (Not Detecte) B.parapertussis DNA PCR (Not Detecte) Coronavirus OC43 (PCR) (Not Detect) Coronavirus HKU1 (PCR) (Not Detect) Coronavirus 229E (PCR) (Not Detect) SARS-CoV-2 (PCR) (Not Detecte) Coronavirus NL63 (PCR) (Not Detect) Human Metapneumovir PCR (Not Detect) Influenza Type A (PCR) (Not Detect) Influenza Type B (PCR) (Not Detect) M. pneumoniae (PCR) (Not Detect) Parainfluenza 1 (PCR) (Not Detect) Parainfluenza 2 (PCR) (Not Detect) Parainfluenza 3 (PCR) (Not Detect) Parainfluenza 4 (PCR) (Not Detect) RSV (PCR) (Not Detect) Entero/Rhino (PCR) (Not Detect) 12/14/22 12/14/22 12/14/22 Range/Units 12:26 12:26 17:18 WBC (4.5-11.0) X10^3/uL RBC (4.0-5.2) X10^6/uL Hgb (12.0-16.0) g/dL Hct (36-46) % MCV (80-100) fL MCH (26-34) PG MCHC (30-36) % RDW (11.6-14.8) % Plt Count (150-400) X10^3/uL Neut % (Auto) (50-75) % Lymph % (Auto) (25-40) % [place] % (Auto) (3-14) % Eos % (Auto) (2-4) % Baso % (Auto) (0-2) % Neut # (Auto) (6317-6740) /uL Lymph # (Auto) (1250-7935) /uL [place] # (Auto) (0-900) /uL Eos # (Auto) (0-450) /uL Baso # (Auto) (0-100) /uL ESR (0-20) MM/HR PT (10.1-12.7) SECONDS INR (0.9-1.3) APTT (26-36) SECONDS Sodium (137-145) mmol/L Potassium (3.4-5.1) mmol/L Chloride (98-107) mmol/L Carbon Dioxide (22-32) mmol/L BUN (7-17) mg/dL Creatinine (0.52-1.04) mg/dL Estimated GFR (>60) mL/min BUN/Creatinine Ratio (6-22) Glucose (80-110) mg/dL Lactate (0.7-2.1) mmol/L Calcium (8.4-10.2) mg/dL Magnesium (1.6-2.3) mg/dL Total Bilirubin (0.2-1.3) mg/dL AST (14-36) IU/L ALT (<35) IU/L Alkaline Phosphatase (38-126) U/L Ammonia (9-30) umol/L Total Creatine Kinase (30-135) U/L CK-MB (CK-2) CK-MB (CK-2) Rel Index Troponin I (0.01-0.034) ng/mL C-Reactive Protein (<1.0) mg/dL Total Protein (6.3-8.2) g/dL Albumin (3.5-5.0) g/dL Globulin (1.7-4.1) g/dL Albumin/Globulin Ratio (1.0-2.8) Lipase 29 (23-300) U/L Procalcitonin 1.21 H (<0.5) ng/mL Urine Color Urine Appearance Urine pH (4.5-8.0) Ur Specific [place] (1.000-1.035) Urine Protein (Negative) Urine Glucose (UA) (Negative) g/dL Urine Ketones (NEGATIVE) Urine Occult Blood (Negative) Urine Nitrate (Negative) Urine Bilirubin (NEGATIVE) Ur Bilirubin Confirm (Negative) Urine Urobilinogen (0.2) E.U./dL Ur Leukocyte Esterase (NEGATIVE) Urine RBC (0-5/HPF) Urine WBC (0-5/HPF) Ur Squamous Epith Cells (0-5/HPF) Urine Bacteria (None) Ur Culture Indicated? U Opiates 300ng/mL cut Negative (Negative) Ur Oxycodone Screen Positive H (Negative) Urine Methadone Screen Negative (Negative) Ur Barbiturates Screen Negative (Negative) U Tricyclic Antidepress Negative (Negative) Ur Phencyclidine Scrn Negative (Negative) Ur Amphetamines Screen Negative (Negative) U Methamphetamines Scrn Negative (Negative) Ur MDMA Scrn (Ecstasy) Negative (Negative) U Benzodiazepines Scrn Positive H (Negative) Urine Cocaine Screen Negative (Negative) U Marijuana (THC) Screen Negative (Negative) Ethyl Alcohol ( - 10) mg/dL Chlamy pneumoniae PCR (Not Detect) Adenovirus (PCR) (Not Detect) B. pertussis DNA (PCR) (Not Detecte) B.parapertussis DNA PCR (Not Detecte) Coronavirus OC43 (PCR) (Not Detect) Coronavirus HKU1 (PCR) (Not Detect) Coronavirus 229E (PCR) (Not Detect) SARS-CoV-2 (PCR) (Not Detecte) Coronavirus NL63 (PCR) (Not Detect) Human Metapneumovir PCR (Not Detect) Influenza Type A (PCR) (Not Detect) Influenza Type B (PCR) (Not Detect) M. pneumoniae (PCR) (Not Detect) Parainfluenza 1 (PCR) (Not Detect) Parainfluenza 2 (PCR) (Not Detect) Parainfluenza 3 (PCR) (Not Detect) Parainfluenza 4 (PCR) (Not Detect) RSV (PCR) (Not Detect) Entero/Rhino (PCR) (Not Detect) 12/14/22 12/14/22 12/14/22 Range/Units 17:18 17:30 22:30 WBC 11.1 H (4.5-11.0) X10^3/uL RBC 2.23 L (4.0-5.2) X10^6/uL Hgb 7.1 L (12.0-16.0) g/dL Hct 21.8 L (36-46) % MCV 97.8 (80-100) fL MCH 32.1 (26-34) PG MCHC 32.8 (30-36) % RDW 18.7 H (11.6-14.8) % Plt Count 293 (150-400) X10^3/uL Neut % (Auto) 87.6 H (50-75) % Lymph % (Auto) 4.5 L (25-40) % [place] % (Auto) 6.7 (3-14) % Eos % (Auto) 1.0 L (2-4) % Baso % (Auto) 0.2 (0-2) % Neut # (Auto) 9700 H (2363-1815) /uL Lymph # (Auto) 500 L (8622-7427) /uL [place] # (Auto) 700 (0-900) /uL Eos # (Auto) 100 (0-450) /uL Baso # (Auto) 0 (0-100) /uL ESR (0-20) MM/HR PT (10.1-12.7) SECONDS INR (0.9-1.3) APTT (26-36) SECONDS Sodium (137-145) mmol/L Potassium (3.4-5.1) mmol/L Chloride (98-107) mmol/L Carbon Dioxide (22-32) mmol/L BUN (7-17) mg/dL Creatinine (0.52-1.04) mg/dL Estimated GFR (>60) mL/min BUN/Creatinine Ratio (6-22) Glucose (80-110) mg/dL Lactate 1.4 (0.7-2.1) mmol/L Calcium (8.4-10.2) mg/dL Magnesium (1.6-2.3) mg/dL Total Bilirubin (0.2-1.3) mg/dL AST (14-36) IU/L ALT (<35) IU/L Alkaline Phosphatase (38-126) U/L Ammonia (9-30) umol/L Total Creatine Kinase (30-135) U/L CK-MB (CK-2) CK-MB (CK-2) Rel Index Troponin I (0.01-0.034) ng/mL C-Reactive Protein (<1.0) mg/dL Total Protein (6.3-8.2) g/dL Albumin (3.5-5.0) g/dL Globulin (1.7-4.1) g/dL Albumin/Globulin Ratio (1.0-2.8) Lipase (23-300) U/L Procalcitonin (<0.5) ng/mL Urine Color Brown Urine Appearance Sl cloudy Urine pH 5.0 (4.5-8.0) Ur Specific [place] 1.020 (1.000-1.035) Urine Protein Negative (Negative) Urine Glucose (UA) Negative (Negative) g/dL Urine Ketones Negative (NEGATIVE) Urine Occult Blood Negative (Negative) Urine Nitrate Negative (Negative) Urine Bilirubin 1+ H (NEGATIVE) Ur Bilirubin Confirm Negative (Negative) Urine Urobilinogen 0.2 (0.2) E.U./dL Ur Leukocyte Esterase Negative (NEGATIVE) Urine RBC 1-5/hpf (0-5/HPF) Urine WBC 1-5/hpf (0-5/HPF) Ur Squamous Epith Cells 1-5 /hpf (0-5/HPF) Urine Bacteria Occasional (0-1) (None) Ur Culture Indicated? Cult not indicated U Opiates 300ng/mL cut (Negative) Ur Oxycodone Screen (Negative) Urine Methadone Screen (Negative) Ur Barbiturates Screen (Negative) U Tricyclic Antidepress (Negative) Ur Phencyclidine Scrn (Negative) Ur Amphetamines Screen (Negative) U Methamphetamines Scrn (Negative) Ur MDMA Scrn (Ecstasy) (Negative) U Benzodiazepines Scrn (Negative) Urine Cocaine Screen (Negative) U Marijuana (THC) Screen (Negative) Ethyl Alcohol ( - 10) mg/dL Chlamy pneumoniae PCR (Not Detect) Adenovirus (PCR) (Not Detect) B. pertussis DNA (PCR) (Not Detecte) B.parapertussis DNA PCR (Not Detecte) Coronavirus OC43 (PCR) (Not Detect) Coronavirus HKU1 (PCR) (Not Detect) Coronavirus 229E (PCR) (Not Detect) SARS-CoV-2 (PCR) (Not Detecte) Coronavirus NL63 (PCR) (Not Detect) Human Metapneumovir PCR (Not Detect) Influenza Type A (PCR) (Not Detect) Influenza Type B (PCR) (Not Detect) M. pneumoniae (PCR) (Not Detect) Parainfluenza 1 (PCR) (Not Detect) Parainfluenza 2 (PCR) (Not Detect) Parainfluenza 3 (PCR) (Not Detect) Parainfluenza 4 (PCR) (Not Detect) RSV (PCR) (Not Detect) Entero/Rhino (PCR) (Not Detect) 12/14/22 12/14/22 12/14/22 Range/Units 22:30 22:30 22:30 WBC (4.5-11.0) X10^3/uL RBC (4.0-5.2) X10^6/uL Hgb (12.0-16.0) g/dL Hct (36-46) % MCV (80-100) fL MCH (26-34) PG MCHC (30-36) % RDW (11.6-14.8) % Plt Count (150-400) X10^3/uL Neut % (Auto) (50-75) % Lymph % (Auto) (25-40) % [place] % (Auto) (3-14) % Eos % (Auto) (2-4) % Baso % (Auto) (0-2) % Neut # (Auto) (9334-1294) /uL Lymph # (Auto) (7269-6639) /uL [place] # (Auto) (0-900) /uL Eos # (Auto) (0-450) /uL Baso # (Auto) (0-100) /uL ESR (0-20) MM/HR PT 118.2 H D (10.1-12.7) SECONDS INR 10.0 H* (0.9-1.3) APTT (26-36) SECONDS Sodium 125 L (137-145) mmol/L Potassium 3.2 L (3.4-5.1) mmol/L Chloride 91 L (98-107) mmol/L Carbon Dioxide 21 L (22-32) mmol/L BUN 56 H (7-17) mg/dL Creatinine 4.50 H (0.52-1.04) mg/dL Estimated GFR 9 L (>60) mL/min BUN/Creatinine Ratio 12.4 (6-22) Glucose 120 H (80-110) mg/dL Lactate 1.9 (0.7-2.1) mmol/L Calcium 7.2 L (8.4-10.2) mg/dL Magnesium (1.6-2.3) mg/dL Total Bilirubin 0.7 (0.2-1.3) mg/dL AST 25 (14-36) IU/L ALT 21 (<35) IU/L Alkaline Phosphatase 92 (38-126) U/L Ammonia (9-30) umol/L Total Creatine Kinase 33 (30-135) U/L CK-MB (CK-2) TNP CK-MB (CK-2) Rel Index TNP Troponin I 0.043 H (0.01-0.034) ng/mL C-Reactive Protein (<1.0) mg/dL Total Protein 4.7 L (6.3-8.2) g/dL Albumin 2.3 L (3.5-5.0) g/dL Globulin 2.4 (1.7-4.1) g/dL Albumin/Globulin Ratio 1.0 (1.0-2.8) Lipase (23-300) U/L Procalcitonin 1.11 H (<0.5) ng/mL Urine Color Urine Appearance Urine pH (4.5-8.0) Ur Specific [place] (1.000-1.035) Urine Protein (Negative) Urine Glucose (UA) (Negative) g/dL Urine Ketones (NEGATIVE) Urine Occult Blood (Negative) Urine Nitrate (Negative) Urine Bilirubin (NEGATIVE) Ur Bilirubin Confirm (Negative) Urine Urobilinogen (0.2) E.U./dL Ur Leukocyte Esterase (NEGATIVE) Urine RBC (0-5/HPF) Urine WBC (0-5/HPF) Ur Squamous Epith Cells (0-5/HPF) Urine Bacteria (None) Ur Culture Indicated? U Opiates 300ng/mL cut (Negative) Ur Oxycodone Screen (Negative) Urine Methadone Screen (Negative) Ur Barbiturates Screen (Negative) U Tricyclic Antidepress (Negative) Ur Phencyclidine Scrn (Negative) Ur Amphetamines Screen (Negative) U Methamphetamines Scrn (Negative) Ur MDMA Scrn (Ecstasy) (Negative) U Benzodiazepines Scrn (Negative) Urine Cocaine Screen (Negative) U Marijuana (THC) Screen (Negative) Ethyl Alcohol ( - 10) mg/dL Chlamy pneumoniae PCR (Not Detect) Adenovirus (PCR) (Not Detect) B. pertussis DNA (PCR) (Not Detecte) B.parapertussis DNA PCR (Not Detecte) Coronavirus OC43 (PCR) (Not Detect) Coronavirus HKU1 (PCR) (Not Detect) Coronavirus 229E (PCR) (Not Detect) SARS-CoV-2 (PCR) (Not Detecte) Coronavirus NL63 (PCR) (Not Detect) Human Metapneumovir PCR (Not Detect) Influenza Type A (PCR) (Not Detect) Influenza Type B (PCR) (Not Detect) M. pneumoniae (PCR) (Not Detect) Parainfluenza 1 (PCR) (Not Detect) Parainfluenza 2 (PCR) (Not Detect) Parainfluenza 3 (PCR) (Not Detect) Parainfluenza 4 (PCR) (Not Detect) RSV (PCR) (Not Detect) Entero/Rhino (PCR) (Not Detect) 12/15/22 12/15/22 12/15/22 Range/Units 03:50 03:50 03:50 WBC 14.5 H (4.5-11.0) X10^3/uL RBC 2.50 L (4.0-5.2) X10^6/uL Hgb 7.8 L (12.0-16.0) g/dL Hct 24.6 L (36-46) % MCV 98.3 (80-100) fL MCH 31.2 (26-34) PG MCHC 31.7 (30-36) % RDW 19.2 H (11.6-14.8) % Plt Count 327 (150-400) X10^3/uL Neut % (Auto) 93.3 H (50-75) % Lymph % (Auto) 1.8 L (25-40) % [place] % (Auto) 4.2 (3-14) % Eos % (Auto) 0.2 L (2-4) % Baso % (Auto) 0.5 (0-2) % Neut # (Auto) 45189 H (0425-1214) /uL Lymph # (Auto) 300 L (8386-4865) /uL [place] # (Auto) 600 (0-900) /uL Eos # (Auto) 0 (0-450) /uL Baso # (Auto) 100 (0-100) /uL ESR (0-20) MM/HR PT 124.8 H D (10.1-12.7) SECONDS INR 10.6 H* (0.9-1.3) APTT (26-36) SECONDS Sodium 125 L (137-145) mmol/L Potassium 2.9 L (3.4-5.1) mmol/L Chloride 88 L (98-107) mmol/L Carbon Dioxide 23 (22-32) mmol/L BUN 49 H (7-17) mg/dL Creatinine 4.51 H (0.52-1.04) mg/dL Estimated GFR 9 L (>60) mL/min BUN/Creatinine Ratio 10.9 (6-22) Glucose 135 H (80-110) mg/dL Lactate (0.7-2.1) mmol/L Calcium 7.2 L (8.4-10.2) mg/dL Magnesium (1.6-2.3) mg/dL Total Bilirubin 0.5 (0.2-1.3) mg/dL AST 27 (14-36) IU/L ALT 23 (<35) IU/L Alkaline Phosphatase 105 (38-126) U/L Ammonia (9-30) umol/L Total Creatine Kinase (30-135) U/L CK-MB (CK-2) CK-MB (CK-2) Rel Index Troponin I (0.01-0.034) ng/mL C-Reactive Protein (<1.0) mg/dL Total Protein 5.0 L (6.3-8.2) g/dL Albumin 2.5 L (3.5-5.0) g/dL Globulin 2.5 (1.7-4.1) g/dL Albumin/Globulin Ratio 1.0 (1.0-2.8) Lipase (23-300) U/L Procalcitonin (<0.5) ng/mL Urine Color Urine Appearance Urine pH (4.5-8.0) Ur Specific [place] (1.000-1.035) Urine Protein (Negative) Urine Glucose (UA) (Negative) g/dL Urine Ketones (NEGATIVE) Urine Occult Blood (Negative) Urine Nitrate (Negative) Urine Bilirubin (NEGATIVE) Ur Bilirubin Confirm (Negative) Urine Urobilinogen (0.2) E.U./dL Ur Leukocyte Esterase (NEGATIVE) Urine RBC (0-5/HPF) Urine WBC (0-5/HPF) Ur Squamous Epith Cells (0-5/HPF) Urine Bacteria (None) Ur Culture Indicated? U Opiates 300ng/mL cut (Negative) Ur Oxycodone Screen (Negative) Urine Methadone Screen (Negative) Ur Barbiturates Screen (Negative) U Tricyclic Antidepress (Negative) Ur Phencyclidine Scrn (Negative) Ur Amphetamines Screen (Negative) U Methamphetamines Scrn (Negative) Ur MDMA Scrn (Ecstasy) (Negative) U Benzodiazepines Scrn (Negative) Urine Cocaine Screen (Negative) U Marijuana (THC) Screen (Negative) Ethyl Alcohol ( - 10) mg/dL Chlamy pneumoniae PCR (Not Detect) Adenovirus (PCR) (Not Detect) B. pertussis DNA (PCR) (Not Detecte) B.parapertussis DNA PCR (Not Detecte) Coronavirus OC43 (PCR) (Not Detect) Coronavirus HKU1 (PCR) (Not Detect) Coronavirus 229E (PCR) (Not Detect) SARS-CoV-2 (PCR) (Not Detecte) Coronavirus NL63 (PCR) (Not Detect) Human Metapneumovir PCR (Not Detect) Influenza Type A (PCR) (Not Detect) Influenza Type B (PCR) (Not Detect) M. pneumoniae (PCR) (Not Detect) Parainfluenza 1 (PCR) (Not Detect) Parainfluenza 2 (PCR) (Not Detect) Parainfluenza 3 (PCR) (Not Detect) Parainfluenza 4 (PCR) (Not Detect) RSV (PCR) (Not Detect) Entero/Rhino (PCR) (Not Detect) 12/15/22 12/15/22 12/15/22 Range/Units 03:50 03:50 08:15 WBC (4.5-11.0) X10^3/uL RBC (4.0-5.2) X10^6/uL Hgb (12.0-16.0) g/dL Hct (36-46) % MCV (80-100) fL MCH (26-34) PG MCHC (30-36) % RDW (11.6-14.8) % Plt Count (150-400) X10^3/uL Neut % (Auto) (50-75) % Lymph % (Auto) (25-40) % [place] % (Auto) (3-14) % Eos % (Auto) (2-4) % Baso % (Auto) (0-2) % Neut # (Auto) (2745-0787) /uL Lymph # (Auto) (4246-5681) /uL [place] # (Auto) (0-900) /uL Eos # (Auto) (0-450) /uL Baso # (Auto) (0-100) /uL ESR 90 H (0-20) MM/HR PT (10.1-12.7) SECONDS INR (0.9-1.3) APTT (26-36) SECONDS Sodium (137-145) mmol/L Potassium (3.4-5.1) mmol/L Chloride (98-107) mmol/L Carbon Dioxide (22-32) mmol/L BUN (7-17) mg/dL Creatinine (0.52-1.04) mg/dL Estimated GFR (>60) mL/min BUN/Creatinine Ratio (6-22) Glucose (80-110) mg/dL Lactate (0.7-2.1) mmol/L Calcium (8.4-10.2) mg/dL Magnesium (1.6-2.3) mg/dL Total Bilirubin (0.2-1.3) mg/dL AST (14-36) IU/L ALT (<35) IU/L Alkaline Phosphatase (38-126) U/L Ammonia (9-30) umol/L Total Creatine Kinase (30-135) U/L CK-MB (CK-2) CK-MB (CK-2) Rel Index Troponin I (0.01-0.034) ng/mL C-Reactive Protein 7.4 H (<1.0) mg/dL Total Protein (6.3-8.2) g/dL Albumin (3.5-5.0) g/dL Globulin (1.7-4.1) g/dL Albumin/Globulin Ratio (1.0-2.8) Lipase (23-300) U/L Procalcitonin (<0.5) ng/mL Urine Color Urine Appearance Urine pH (4.5-8.0) Ur Specific [place] (1.000-1.035) Urine Protein (Negative) Urine Glucose (UA) (Negative) g/dL Urine Ketones (NEGATIVE) Urine Occult Blood (Negative) Urine Nitrate (Negative) Urine Bilirubin (NEGATIVE) Ur Bilirubin Confirm (Negative) Urine Urobilinogen (0.2) E.U./dL Ur Leukocyte Esterase (NEGATIVE) Urine RBC (0-5/HPF) Urine WBC (0-5/HPF) Ur Squamous Epith Cells (0-5/HPF) Urine Bacteria (None) Ur Culture Indicated? U Opiates 300ng/mL cut (Negative) Ur Oxycodone Screen (Negative) Urine Methadone Screen (Negative) Ur Barbiturates Screen (Negative) U Tricyclic Antidepress (Negative) Ur Phencyclidine Scrn (Negative) Ur Amphetamines Screen (Negative) U Methamphetamines Scrn (Negative) Ur MDMA Scrn (Ecstasy) (Negative) U Benzodiazepines Scrn (Negative) Urine Cocaine Screen (Negative) U Marijuana (THC) Screen (Negative) Ethyl Alcohol ( - 10) mg/dL Chlamy pneumoniae PCR Not detected (Not Detect) Adenovirus (PCR) Not detected (Not Detect) B. pertussis DNA (PCR) Not detected (Not Detecte) B.parapertussis DNA PCR Not detected (Not Detecte) Coronavirus OC43 (PCR) Not detected (Not Detect) Coronavirus HKU1 (PCR) Not detected (Not Detect) Coronavirus 229E (PCR) Not detected (Not Detect) SARS-CoV-2 (PCR) Not detected (Not Detecte) Coronavirus NL63 (PCR) Not detected (Not Detect) Human Metapneumovir PCR Not detected (Not Detect) Influenza Type A (PCR) Not detected (Not Detect) Influenza Type B (PCR) Not detected (Not Detect) M. pneumoniae (PCR) Not detected (Not Detect) Parainfluenza 1 (PCR) Not detected (Not Detect) Parainfluenza 2 (PCR) Not detected (Not Detect) Parainfluenza 3 (PCR) Not detected (Not Detect) Parainfluenza 4 (PCR) Not detected (Not Detect) RSV (PCR) Not detected (Not Detect) Entero/Rhino (PCR) Not detected (Not Detect) 12/15/22 12/15/22 12/15/22 Range/Units 08:25 08:25 08:25 WBC 14.7 H (4.5-11.0) X10^3/uL RBC 2.31 L (4.0-5.2) X10^6/uL Hgb 7.2 L (12.0-16.0) g/dL Hct 22.4 L (36-46) % MCV 97.0 (80-100) fL MCH 31.4 (26-34) PG MCHC 32.4 (30-36) % RDW 18.5 H (11.6-14.8) % Plt Count 328 (150-400) X10^3/uL Neut % (Auto) 91.9 H (50-75) % Lymph % (Auto) 1.5 L (25-40) % [place] % (Auto) 6.2 (3-14) % Eos % (Auto) 0.2 L (2-4) % Baso % (Auto) 0.2 (0-2) % Neut # (Auto) 51263 H (7090-3055) /uL Lymph # (Auto) 200 L (8398-6151) /uL [place] # (Auto) 900 (0-900) /uL Eos # (Auto) 0 (0-450) /uL Baso # (Auto) 0 (0-100) /uL ESR (0-20) MM/HR PT 93.6 H D (10.1-12.7) SECONDS INR 8.0 H* (0.9-1.3) APTT (26-36) SECONDS Sodium 122 L (137-145) mmol/L Potassium 3.1 L (3.4-5.1) mmol/L Chloride 87 L (98-107) mmol/L Carbon Dioxide 23 (22-32) mmol/L BUN 46 H (7-17) mg/dL Creatinine 3.96 H (0.52-1.04) mg/dL Estimated GFR 11 L (>60) mL/min BUN/Creatinine Ratio 11.6 (6-22) Glucose 108 (80-110) mg/dL Lactate (0.7-2.1) mmol/L Calcium 7.2 L (8.4-10.2) mg/dL Magnesium (1.6-2.3) mg/dL Total Bilirubin 0.4 (0.2-1.3) mg/dL AST 30 (14-36) IU/L ALT 21 (<35) IU/L Alkaline Phosphatase 93 (38-126) U/L Ammonia (9-30) umol/L Total Creatine Kinase (30-135) U/L CK-MB (CK-2) CK-MB (CK-2) Rel Index Troponin I (0.01-0.034) ng/mL C-Reactive Protein (<1.0) mg/dL Total Protein 4.7 L (6.3-8.2) g/dL Albumin 2.3 L (3.5-5.0) g/dL Globulin 2.4 (1.7-4.1) g/dL Albumin/Globulin Ratio 1.0 (1.0-2.8) Lipase (23-300) U/L Procalcitonin (<0.5) ng/mL Urine Color Urine Appearance Urine pH (4.5-8.0) Ur Specific [place] (1.000-1.035) Urine Protein (Negative) Urine Glucose (UA) (Negative) g/dL Urine Ketones (NEGATIVE) Urine Occult Blood (Negative) Urine Nitrate (Negative) Urine Bilirubin (NEGATIVE) Ur Bilirubin Confirm (Negative) Urine Urobilinogen (0.2) E.U./dL Ur Leukocyte Esterase (NEGATIVE) Urine RBC (0-5/HPF) Urine WBC (0-5/HPF) Ur Squamous Epith Cells (0-5/HPF) Urine Bacteria (None) Ur Culture Indicated? U Opiates 300ng/mL cut (Negative) Ur Oxycodone Screen (Negative) Urine Methadone Screen (Negative) Ur Barbiturates Screen (Negative) U Tricyclic Antidepress (Negative) Ur Phencyclidine Scrn (Negative) Ur Amphetamines Screen (Negative) U Methamphetamines Scrn (Negative) Ur MDMA Scrn (Ecstasy) (Negative) U Benzodiazepines Scrn (Negative) Urine Cocaine Screen (Negative) U Marijuana (THC) Screen (Negative) Ethyl Alcohol ( - 10) mg/dL Chlamy pneumoniae PCR (Not Detect) Adenovirus (PCR) (Not Detect) B. pertussis DNA (PCR) (Not Detecte) B.parapertussis DNA PCR (Not Detecte) Coronavirus OC43 (PCR) (Not Detect) Coronavirus HKU1 (PCR) (Not Detect) Coronavirus 229E (PCR) (Not Detect) SARS-CoV-2 (PCR) (Not Detecte) Coronavirus NL63 (PCR) (Not Detect) Human Metapneumovir PCR (Not Detect) Influenza Type A (PCR) (Not Detect) Influenza Type B (PCR) (Not Detect) M. pneumoniae (PCR) (Not Detect) Parainfluenza 1 (PCR) (Not Detect) Parainfluenza 2 (PCR) (Not Detect) Parainfluenza 3 (PCR) (Not Detect) Parainfluenza 4 (PCR) (Not Detect) RSV (PCR) (Not Detect) Entero/Rhino (PCR) (Not Detect) 12/15/22 12/15/22 12/15/22 Range/Units 08:25 12:55 12:55 WBC 11.4 H (4.5-11.0) X10^3/uL RBC 2.16 L (4.0-5.2) X10^6/uL Hgb 6.8 L* (12.0-16.0) g/dL Hct 21.0 L (36-46) % MCV 97.5 (80-100) fL MCH 31.7 (26-34) PG MCHC 32.5 (30-36) % RDW 18.5 H (11.6-14.8) % Plt Count 242 (150-400) X10^3/uL Neut % (Auto) 88.9 H (50-75) % Lymph % (Auto) 3.4 L (25-40) % [place] % (Auto) 6.9 (3-14) % Eos % (Auto) 0.7 L (2-4) % Baso % (Auto) 0.1 (0-2) % Neut # (Auto) 63967 H (2061-1673) /uL Lymph # (Auto) 400 L (3654-1943) /uL [place] # (Auto) 800 (0-900) /uL Eos # (Auto) 100 (0-450) /uL Baso # (Auto) 0 (0-100) /uL ESR (0-20) MM/HR PT (10.1-12.7) SECONDS INR (0.9-1.3) APTT (26-36) SECONDS Sodium 121 L (137-145) mmol/L Potassium 3.2 L (3.4-5.1) mmol/L Chloride 86 L (98-107) mmol/L Carbon Dioxide 24 (22-32) mmol/L BUN 46 H (7-17) mg/dL Creatinine 4.12 H (0.52-1.04) mg/dL Estimated GFR 10 L (>60) mL/min BUN/Creatinine Ratio 11.2 (6-22) Glucose 118 H (80-110) mg/dL Lactate (0.7-2.1) mmol/L Calcium 7.1 L (8.4-10.2) mg/dL Magnesium (1.6-2.3) mg/dL Total Bilirubin (0.2-1.3) mg/dL AST (14-36) IU/L ALT (<35) IU/L Alkaline Phosphatase (38-126) U/L Ammonia (9-30) umol/L Total Creatine Kinase (30-135) U/L CK-MB (CK-2) CK-MB (CK-2) Rel Index Troponin I 0.790 H* (0.01-0.034) ng/mL C-Reactive Protein (<1.0) mg/dL Total Protein (6.3-8.2) g/dL Albumin (3.5-5.0) g/dL Globulin (1.7-4.1) g/dL Albumin/Globulin Ratio (1.0-2.8) Lipase (23-300) U/L Procalcitonin (<0.5) ng/mL Urine Color Urine Appearance Urine pH (4.5-8.0) Ur Specific [place] (1.000-1.035) Urine Protein (Negative) Urine Glucose (UA) (Negative) g/dL Urine Ketones (NEGATIVE) Urine Occult Blood (Negative) Urine Nitrate (Negative) Urine Bilirubin (NEGATIVE) Ur Bilirubin Confirm (Negative) Urine Urobilinogen (0.2) E.U./dL Ur Leukocyte Esterase (NEGATIVE) Urine RBC (0-5/HPF) Urine WBC (0-5/HPF) Ur Squamous Epith Cells (0-5/HPF) Urine Bacteria (None) Ur Culture Indicated? U Opiates 300ng/mL cut (Negative) Ur Oxycodone Screen (Negative) Urine Methadone Screen (Negative) Ur Barbiturates Screen (Negative) U Tricyclic Antidepress (Negative) Ur Phencyclidine Scrn (Negative) Ur Amphetamines Screen (Negative) U Methamphetamines Scrn (Negative) Ur MDMA Scrn (Ecstasy) (Negative) U Benzodiazepines Scrn (Negative) Urine Cocaine Screen (Negative) U Marijuana (THC) Screen (Negative) Ethyl Alcohol ( - 10) mg/dL Chlamy pneumoniae PCR (Not Detect) Adenovirus (PCR) (Not Detect) B. pertussis DNA (PCR) (Not Detecte) B.parapertussis DNA PCR (Not Detecte) Coronavirus OC43 (PCR) (Not Detect) Coronavirus HKU1 (PCR) (Not Detect) Coronavirus 229E (PCR) (Not Detect) SARS-CoV-2 (PCR) (Not Detecte) Coronavirus NL63 (PCR) (Not Detect) Human Metapneumovir PCR (Not Detect) Influenza Type A (PCR) (Not Detect) Influenza Type B (PCR) (Not Detect) M. pneumoniae (PCR) (Not Detect) Parainfluenza 1 (PCR) (Not Detect) Parainfluenza 2 (PCR) (Not Detect) Parainfluenza 3 (PCR) (Not Detect) Parainfluenza 4 (PCR) (Not Detect) RSV (PCR) (Not Detect) Entero/Rhino (PCR) (Not Detect) 12/15/22 Range/Units 12:55 WBC (4.5-11.0) X10^3/uL RBC (4.0-5.2) X10^6/uL Hgb (12.0-16.0) g/dL Hct (36-46) % MCV (80-100) fL MCH (26-34) PG MCHC (30-36) % RDW (11.6-14.8) % Plt Count (150-400) X10^3/uL Neut % (Auto) (50-75) % Lymph % (Auto) (25-40) % [place] % (Auto) (3-14) % Eos % (Auto) (2-4) % Baso % (Auto) (0-2) % Neut # (Auto) (1394-6558) /uL Lymph # (Auto) (1253-0128) /uL [place] # (Auto) (0-900) /uL Eos # (Auto) (0-450) /uL Baso # (Auto) (0-100) /uL ESR (0-20) MM/HR PT (10.1-12.7) SECONDS INR (0.9-1.3) APTT (26-36) SECONDS Sodium (137-145) mmol/L Potassium (3.4-5.1) mmol/L Chloride (98-107) mmol/L Carbon Dioxide (22-32) mmol/L BUN (7-17) mg/dL Creatinine (0.52-1.04) mg/dL Estimated GFR (>60) mL/min BUN/Creatinine Ratio (6-22) Glucose (80-110) mg/dL Lactate (0.7-2.1) mmol/L Calcium (8.4-10.2) mg/dL Magnesium 0.9 L* (1.6-2.3) mg/dL Total Bilirubin (0.2-1.3) mg/dL AST (14-36) IU/L ALT (<35) IU/L Alkaline Phosphatase (38-126) U/L Ammonia (9-30) umol/L Total Creatine Kinase (30-135) U/L CK-MB (CK-2) CK-MB (CK-2) Rel Index Troponin I (0.01-0.034) ng/mL C-Reactive Protein (<1.0) mg/dL Total Protein (6.3-8.2) g/dL Albumin (3.5-5.0) g/dL Globulin (1.7-4.1) g/dL Albumin/Globulin Ratio (1.0-2.8) Lipase (23-300) U/L Procalcitonin (<0.5) ng/mL Urine Color Urine Appearance Urine pH (4.5-8.0) Ur Specific [place] (1.000-1.035) Urine Protein (Negative) Urine Glucose (UA) (Negative) g/dL Urine Ketones (NEGATIVE) Urine Occult Blood (Negative) Urine Nitrate (Negative) Urine Bilirubin (NEGATIVE) Ur Bilirubin Confirm (Negative) Urine Urobilinogen (0.2) E.U./dL Ur Leukocyte Esterase (NEGATIVE) Urine RBC (0-5/HPF) Urine WBC (0-5/HPF) Ur Squamous Epith Cells (0-5/HPF) Urine Bacteria (None) Ur Culture Indicated? U Opiates 300ng/mL cut (Negative) Ur Oxycodone Screen (Negative) Urine Methadone Screen (Negative) Ur Barbiturates Screen (Negative) U Tricyclic Antidepress (Negative) Ur Phencyclidine Scrn (Negative) Ur Amphetamines Screen (Negative) U Methamphetamines Scrn (Negative) Ur MDMA Scrn (Ecstasy) (Negative) U Benzodiazepines Scrn (Negative) Urine Cocaine Screen (Negative) U Marijuana (THC) Screen (Negative) Ethyl Alcohol ( - 10) mg/dL Chlamy pneumoniae PCR (Not Detect) Adenovirus (PCR) (Not Detect) B. pertussis DNA (PCR) (Not Detecte) B.parapertussis DNA PCR (Not Detecte) Coronavirus OC43 (PCR) (Not Detect) Coronavirus HKU1 (PCR) (Not Detect) Coronavirus 229E (PCR) (Not Detect) SARS-CoV-2 (PCR) (Not Detecte) Coronavirus NL63 (PCR) (Not Detect) Human Metapneumovir PCR (Not Detect) Influenza Type A (PCR) (Not Detect) Influenza Type B (PCR) (Not Detect) M. pneumoniae (PCR) (Not Detect) Parainfluenza 1 (PCR) (Not Detect) Parainfluenza 2 (PCR) (Not Detect) Parainfluenza 3 (PCR) (Not Detect) Parainfluenza 4 (PCR) (Not Detect) RSV (PCR) (Not Detect) Entero/Rhino (PCR) (Not Detect) Point of Care Testing Glucose POC 108 MDM Narrative Medical decision making narrative: This is a 82-year-old female presents with intermittent hallucinations from wound care for her chronic wounds on her bilateral lower extremities. Patient is hypotensive but at her normal baseline. Patient recognize that she does sometimes have hallucinations, patient's hemoglobin is 10, platelets are 213 with a white count of 9.5. INR is quite elevated at 7.8, sodium 127, chloride 91 BUN 56 creatinine 4.7, potassium is appropriate at 3.4, ammonia is negative with low albumin. Procalcitonin is elevated 1.21 but has been elevated on all prior visits as well so unclear if this is truly a bacterial etiology. Patient is COVID negative. Head CT was obtained secondary to alteration in mental status and elevated INR it is negative for acute change. Chest x-ray does not show acute abnormality. CT abdomen and pelvis shows gastric mucosal thickening segmental thickening duodenum and proximal jejunum suggestive of gastroenteritis some change in the cecum for mild colitis, nodular contour suggesting cirrhosis multiple 60 changes in the pancreas benign cyst versus IPMN patulous distal esophagus could be impacted fluid or mass recommended EGD, atrophic kidneys consistent with renal disease but can not rule out solid renal mass. Trace bilateral pleural effusions. Patient's urine does not show signs of infection. Patient is positive for oxycodone and benzodiazepines this could contribute to hallucinations. ETOH is negative. Discussed with patient and family her recent codeine use, Benadryl good possibly be combined to cause hallucinations but she also has had vomiting for the past 2 days she does have some changes on her imaging she does use peritoneal dialysis. Patient's labs show an elevated procalcitonin but unclear if this is truly infectious source. Pressures have been fairly consistent 90s systolic which is patient has normal but has had dips. She would a 250 cc bolus dose of IV antibiotic, patient received 750 mg x 1 and then should receive 500 mg Q 48 with her peritoneal dialysis. Discussed with patient's family at like to keep her for observation but we do not have Nephrology available multiple facilities were called no bed availability, patient placed on [facility] regional hotline and signed out to Dr. Billings while awaiting possible placement. Patient was given some orals and has been tolerating in department. She has not had any diarrhea or stool output for GI panel. Dr. Billings: Patient 82-year-old female signed out to me by Dr. Hampton seen evaluated by myself. She remains confused and agitated. She was given Tylenol with codeine for wounds on her toes. It cause some itching she was given Benadryl. She had increasing confusion ongoing nausea and vomiting. Daughter whom she lives with states that she is not really had anything to eat or drink for about 36 hours. Blood pressure is noted be mildly low but seems to always be that way. She does not seem to be symptomatic. Elevated procalcitonin difficult to tell if that is for an acute infection is slightly more elevated than normal. Difficult to tell if confusion is secondary to medication versus infection. Due to peritoneal dialysis which she is currently doing herself in the emergency department she can not be admitted here at this hospital Called to evaluate patient just prior to this the nurse asked for Xanax which the family requested which she takes sometimes at night. Xanax had not been given patient was more confused more agitated. Glucose found to be 68. Daughter reports that she is not been eating or drinking very much. She was able to have some juice becoming more agitated moving all extremities still remains confused although daughter reports she is more confused now than she was previously. Difficult for me to tell at this point. He has mild right facial droop daughter reports that she is had that but maybe now more pronounced. Her INR is elevated at 7. She initially had head CT that was negative. Dextrose 10% started. Repeat head CT and blood work are ordered. Hemoglobin is 7.1 hematocrit 21.8 previously 10.2 and 31 it does look like her baseline hemoglobin is about 7.9. He is received a total of 500 cc of fluid unlikely to be diluted. No obvious bleeding. 05:05 routine blood work was checked. Patient continues to be on dialysis. She was teeth 10 mg of vitamin K p.o. last night at 11:00 p.m. INR is 10.6. She is no evidence of bleeding she is not hypotensive she continues to be in AFib heart rate is starting to go up. Will give her metoprolol now. She remains agitated she did not really respond to 1 mg of Haldol. She is a mildly elevated QTC do not want to give her anymore Haldol. Considered getting FFP however patient is a Gnosticism she said no FFP. I called and confirmed this with daughter who also said no FFP and that patient is a DNR. Daughter reports that she has these ongoing wound secondary to Raynaud's on her feet. She is followed by wound care she saw wound care yesterday stated that wounds were not infected but they needed to be monitored. Possibly she has like an osteomyelitis. Considered at meningitis or encephalitis however with INR of 10 not a candidate for a lumbar puncture. She also seems to be moving her head and neck very easily not complaining of headache. X-rays of feet did not show any evidence of osteomyelitis. However ESR and CRP are significantly elevated. Was holding off medications to help her mental status clear however she likely does have pain from her feet. Patient signed out to Dr. Rivera <Todd Rivera MD - Last Filed: 12/31/22 22:15> Lab Data Labs: Lab Results 12/14/22 12/14/22 12/14/22 Range/Units 10:58 10:58 10:58 WBC 9.5 (4.5-11.0) X10^3/uL RBC 3.21 L (4.0-5.2) X10^6/uL Hgb 10.2 L (12.0-16.0) g/dL Hct 31.2 L (36-46) % MCV 97.0 (80-100) fL MCH 31.8 (26-34) PG MCHC 32.8 (30-36) % RDW 18.5 H (11.6-14.8) % Plt Count 213 (150-400) X10^3/uL Neut % (Auto) 90.7 H (50-75) % Lymph % (Auto) 2.1 L (25-40) % [place] % (Auto) 5.1 (3-14) % Eos % (Auto) 0.9 L (2-4) % Baso % (Auto) 1.2 (0-2) % Neut # (Auto) 8600 H (8395-3586) /uL Lymph # (Auto) 200 L (4512-5035) /uL [place] # (Auto) 500 (0-900) /uL Eos # (Auto) 100 (0-450) /uL Baso # (Auto) 100 (0-100) /uL ESR (0-20) MM/HR PT (10.1-12.7) SECONDS INR (0.9-1.3) APTT (26-36) SECONDS Sodium 127 L (137-145) mmol/L Potassium 3.4 (3.4-5.1) mmol/L Chloride 91 L (98-107) mmol/L Carbon Dioxide 27 (22-32) mmol/L BUN 56 H (7-17) mg/dL Creatinine 4.70 H (0.52-1.04) mg/dL Estimated GFR 9 L (>60) mL/min BUN/Creatinine Ratio 11.9 (6-22) Glucose 93 (80-110) mg/dL Lactate (0.7-2.1) mmol/L Calcium 7.4 L (8.4-10.2) mg/dL Magnesium (1.6-2.3) mg/dL Total Bilirubin 0.6 (0.2-1.3) mg/dL AST 31 (14-36) IU/L ALT 18 (<35) IU/L Alkaline Phosphatase 104 (38-126) U/L Ammonia < 9 L (9-30) umol/L Total Creatine Kinase (30-135) U/L CK-MB (CK-2) CK-MB (CK-2) Rel Index Troponin I (0.01-0.034) ng/mL C-Reactive Protein (<1.0) mg/dL Total Protein 4.7 L (6.3-8.2) g/dL Albumin 2.3 L (3.5-5.0) g/dL Globulin 2.4 (1.7-4.1) g/dL Albumin/Globulin Ratio 1.0 (1.0-2.8) Lipase (23-300) U/L Procalcitonin (<0.5) ng/mL Urine Color Urine Appearance Urine pH (4.5-8.0) Ur Specific [place] (1.000-1.035) Urine Protein (Negative) Urine Glucose (UA) (Negative) g/dL Urine Ketones (NEGATIVE) Urine Occult Blood (Negative) Urine Nitrate (Negative) Urine Bilirubin (NEGATIVE) Ur Bilirubin Confirm (Negative) Urine Urobilinogen (0.2) E.U./dL Ur Leukocyte Esterase (NEGATIVE) Urine RBC (0-5/HPF) Urine WBC (0-5/HPF) Ur Squamous Epith Cells (0-5/HPF) Urine Bacteria (None) Ur Culture Indicated? U Opiates 300ng/mL cut (Negative) Ur Oxycodone Screen (Negative) Urine Methadone Screen (Negative) Ur Barbiturates Screen (Negative) U Tricyclic Antidepress (Negative) Ur Phencyclidine Scrn (Negative) Ur Amphetamines Screen (Negative) U Methamphetamines Scrn (Negative) Ur MDMA Scrn (Ecstasy) (Negative) U Benzodiazepines Scrn (Negative) Urine Cocaine Screen (Negative) U Marijuana (THC) Screen (Negative) Ethyl Alcohol ( - 10) mg/dL Chlamy pneumoniae PCR (Not Detect) Adenovirus (PCR) (Not Detect) B. pertussis DNA (PCR) (Not Detecte) B.parapertussis DNA PCR (Not Detecte) Coronavirus OC43 (PCR) (Not Detect) Coronavirus HKU1 (PCR) (Not Detect) Coronavirus 229E (PCR) (Not Detect) SARS-CoV-2 (PCR) (Not Detecte) Coronavirus NL63 (PCR) (Not Detect) Human Metapneumovir PCR (Not Detect) Influenza Type A (PCR) (Not Detect) Influenza Type B (PCR) (Not Detect) M. pneumoniae (PCR) (Not Detect) Parainfluenza 1 (PCR) (Not Detect) Parainfluenza 2 (PCR) (Not Detect) Parainfluenza 3 (PCR) (Not Detect) Parainfluenza 4 (PCR) (Not Detect) RSV (PCR) (Not Detect) Entero/Rhino (PCR) (Not Detect) 12/14/22 12/14/22 12/14/22 Range/Units 10:58 10:58 10:58 WBC (4.5-11.0) X10^3/uL RBC (4.0-5.2) X10^6/uL Hgb (12.0-16.0) g/dL Hct (36-46) % MCV (80-100) fL MCH (26-34) PG MCHC (30-36) % RDW (11.6-14.8) % Plt Count (150-400) X10^3/uL Neut % (Auto) (50-75) % Lymph % (Auto) (25-40) % [place] % (Auto) (3-14) % Eos % (Auto) (2-4) % Baso % (Auto) (0-2) % Neut # (Auto) (5703-0079) /uL Lymph # (Auto) (2553-4172) /uL [place] # (Auto) (0-900) /uL Eos # (Auto) (0-450) /uL Baso # (Auto) (0-100) /uL ESR (0-20) MM/HR PT 91.8 H (10.1-12.7) SECONDS INR 7.8 H* (0.9-1.3) APTT 57 H (26-36) SECONDS Sodium (137-145) mmol/L Potassium (3.4-5.1) mmol/L Chloride (98-107) mmol/L Carbon Dioxide (22-32) mmol/L BUN (7-17) mg/dL Creatinine (0.52-1.04) mg/dL Estimated GFR (>60) mL/min BUN/Creatinine Ratio (6-22) Glucose (80-110) mg/dL Lactate 1.3 (0.7-2.1) mmol/L Calcium (8.4-10.2) mg/dL Magnesium (1.6-2.3) mg/dL Total Bilirubin (0.2-1.3) mg/dL AST (14-36) IU/L ALT (<35) IU/L Alkaline Phosphatase (38-126) U/L Ammonia (9-30) umol/L Total Creatine Kinase (30-135) U/L CK-MB (CK-2) CK-MB (CK-2) Rel Index Troponin I (0.01-0.034) ng/mL C-Reactive Protein (<1.0) mg/dL Total Protein (6.3-8.2) g/dL Albumin (3.5-5.0) g/dL Globulin (1.7-4.1) g/dL Albumin/Globulin Ratio (1.0-2.8) Lipase (23-300) U/L Procalcitonin (<0.5) ng/mL Urine Color Urine Appearance Urine pH (4.5-8.0) Ur Specific [place] (1.000-1.035) Urine Protein (Negative) Urine Glucose (UA) (Negative) g/dL Urine Ketones (NEGATIVE) Urine Occult Blood (Negative) Urine Nitrate (Negative) Urine Bilirubin (NEGATIVE) Ur Bilirubin Confirm (Negative) Urine Urobilinogen (0.2) E.U./dL Ur Leukocyte Esterase (NEGATIVE) Urine RBC (0-5/HPF) Urine WBC (0-5/HPF) Ur Squamous Epith Cells (0-5/HPF) Urine Bacteria (None) Ur Culture Indicated? U Opiates 300ng/mL cut (Negative) Ur Oxycodone Screen (Negative) Urine Methadone Screen (Negative) Ur Barbiturates Screen (Negative) U Tricyclic Antidepress (Negative) Ur Phencyclidine Scrn (Negative) Ur Amphetamines Screen (Negative) U Methamphetamines Scrn (Negative) Ur MDMA Scrn (Ecstasy) (Negative) U Benzodiazepines Scrn (Negative) Urine Cocaine Screen (Negative) U Marijuana (THC) Screen (Negative) Ethyl Alcohol < 10 ( - 10) mg/dL Chlamy pneumoniae PCR (Not Detect) Adenovirus (PCR) (Not Detect) B. pertussis DNA (PCR) (Not Detecte) B.parapertussis DNA PCR (Not Detecte) Coronavirus OC43 (PCR) (Not Detect) Coronavirus HKU1 (PCR) (Not Detect) Coronavirus 229E (PCR) (Not Detect) SARS-CoV-2 (PCR) (Not Detecte) Coronavirus NL63 (PCR) (Not Detect) Human Metapneumovir PCR (Not Detect) Influenza Type A (PCR) (Not Detect) Influenza Type B (PCR) (Not Detect) M. pneumoniae (PCR) (Not Detect) Parainfluenza 1 (PCR) (Not Detect) Parainfluenza 2 (PCR) (Not Detect) Parainfluenza 3 (PCR) (Not Detect) Parainfluenza 4 (PCR) (Not Detect) RSV (PCR) (Not Detect) Entero/Rhino (PCR) (Not Detect) 12/14/22 12/14/22 12/14/22 Range/Units 12:26 12:26 17:18 WBC (4.5-11.0) X10^3/uL RBC (4.0-5.2) X10^6/uL Hgb (12.0-16.0) g/dL Hct (36-46) % MCV (80-100) fL MCH (26-34) PG MCHC (30-36) % RDW (11.6-14.8) % Plt Count (150-400) X10^3/uL Neut % (Auto) (50-75) % Lymph % (Auto) (25-40) % [place] % (Auto) (3-14) % Eos % (Auto) (2-4) % Baso % (Auto) (0-2) % Neut # (Auto) (9229-4921) /uL Lymph # (Auto) (1766-3454) /uL [place] # (Auto) (0-900) /uL Eos # (Auto) (0-450) /uL Baso # (Auto) (0-100) /uL ESR (0-20) MM/HR PT (10.1-12.7) SECONDS INR (0.9-1.3) APTT (26-36) SECONDS Sodium (137-145) mmol/L Potassium (3.4-5.1) mmol/L Chloride (98-107) mmol/L Carbon Dioxide (22-32) mmol/L BUN (7-17) mg/dL Creatinine (0.52-1.04) mg/dL Estimated GFR (>60) mL/min BUN/Creatinine Ratio (6-22) Glucose (80-110) mg/dL Lactate (0.7-2.1) mmol/L Calcium (8.4-10.2) mg/dL Magnesium (1.6-2.3) mg/dL Total Bilirubin (0.2-1.3) mg/dL AST (14-36) IU/L ALT (<35) IU/L Alkaline Phosphatase (38-126) U/L Ammonia (9-30) umol/L Total Creatine Kinase (30-135) U/L CK-MB (CK-2) CK-MB (CK-2) Rel Index Troponin I (0.01-0.034) ng/mL C-Reactive Protein (<1.0) mg/dL Total Protein (6.3-8.2) g/dL Albumin (3.5-5.0) g/dL Globulin (1.7-4.1) g/dL Albumin/Globulin Ratio (1.0-2.8) Lipase 29 (23-300) U/L Procalcitonin 1.21 H (<0.5) ng/mL Urine Color Urine Appearance Urine pH (4.5-8.0) Ur Specific [place] (1.000-1.035) Urine Protein (Negative) Urine Glucose (UA) (Negative) g/dL Urine Ketones (NEGATIVE) Urine Occult Blood (Negative) Urine Nitrate (Negative) Urine Bilirubin (NEGATIVE) Ur Bilirubin Confirm (Negative) Urine Urobilinogen (0.2) E.U./dL Ur Leukocyte Esterase (NEGATIVE) Urine RBC (0-5/HPF) Urine WBC (0-5/HPF) Ur Squamous Epith Cells (0-5/HPF) Urine Bacteria (None) Ur Culture Indicated? U Opiates 300ng/mL cut Negative (Negative) Ur Oxycodone Screen Positive H (Negative) Urine Methadone Screen Negative (Negative) Ur Barbiturates Screen Negative (Negative) U Tricyclic Antidepress Negative (Negative) Ur Phencyclidine Scrn Negative (Negative) Ur Amphetamines Screen Negative (Negative) U Methamphetamines Scrn Negative (Negative) Ur MDMA Scrn (Ecstasy) Negative (Negative) U Benzodiazepines Scrn Positive H (Negative) Urine Cocaine Screen Negative (Negative) U Marijuana (THC) Screen Negative (Negative) Ethyl Alcohol ( - 10) mg/dL Chlamy pneumoniae PCR (Not Detect) Adenovirus (PCR) (Not Detect) B. pertussis DNA (PCR) (Not Detecte) B.parapertussis DNA PCR (Not Detecte) Coronavirus OC43 (PCR) (Not Detect) Coronavirus HKU1 (PCR) (Not Detect) Coronavirus 229E (PCR) (Not Detect) SARS-CoV-2 (PCR) (Not Detecte) Coronavirus NL63 (PCR) (Not Detect) Human Metapneumovir PCR (Not Detect) Influenza Type A (PCR) (Not Detect) Influenza Type B (PCR) (Not Detect) M. pneumoniae (PCR) (Not Detect) Parainfluenza 1 (PCR) (Not Detect) Parainfluenza 2 (PCR) (Not Detect) Parainfluenza 3 (PCR) (Not Detect) Parainfluenza 4 (PCR) (Not Detect) RSV (PCR) (Not Detect) Entero/Rhino (PCR) (Not Detect) 12/14/22 12/14/22 12/14/22 Range/Units 17:18 17:30 22:30 WBC 11.1 H (4.5-11.0) X10^3/uL RBC 2.23 L (4.0-5.2) X10^6/uL Hgb 7.1 L (12.0-16.0) g/dL Hct 21.8 L (36-46) % MCV 97.8 (80-100) fL MCH 32.1 (26-34) PG MCHC 32.8 (30-36) % RDW 18.7 H (11.6-14.8) % Plt Count 293 (150-400) X10^3/uL Neut % (Auto) 87.6 H (50-75) % Lymph % (Auto) 4.5 L (25-40) % [place] % (Auto) 6.7 (3-14) % Eos % (Auto) 1.0 L (2-4) % Baso % (Auto) 0.2 (0-2) % Neut # (Auto) 9700 H (2642-8747) /uL Lymph # (Auto) 500 L (3096-1931) /uL [place] # (Auto) 700 (0-900) /uL Eos # (Auto) 100 (0-450) /uL Baso # (Auto) 0 (0-100) /uL ESR (0-20) MM/HR PT (10.1-12.7) SECONDS INR (0.9-1.3) APTT (26-36) SECONDS Sodium (137-145) mmol/L Potassium (3.4-5.1) mmol/L Chloride (98-107) mmol/L Carbon Dioxide (22-32) mmol/L BUN (7-17) mg/dL Creatinine (0.52-1.04) mg/dL Estimated GFR (>60) mL/min BUN/Creatinine Ratio (6-22) Glucose (80-110) mg/dL Lactate 1.4 (0.7-2.1) mmol/L Calcium (8.4-10.2) mg/dL Magnesium (1.6-2.3) mg/dL Total Bilirubin (0.2-1.3) mg/dL AST (14-36) IU/L ALT (<35) IU/L Alkaline Phosphatase (38-126) U/L Ammonia (9-30) umol/L Total Creatine Kinase (30-135) U/L CK-MB (CK-2) CK-MB (CK-2) Rel Index Troponin I (0.01-0.034) ng/mL C-Reactive Protein (<1.0) mg/dL Total Protein (6.3-8.2) g/dL Albumin (3.5-5.0) g/dL Globulin (1.7-4.1) g/dL Albumin/Globulin Ratio (1.0-2.8) Lipase (23-300) U/L Procalcitonin (<0.5) ng/mL Urine Color Brown Urine Appearance Sl cloudy Urine pH 5.0 (4.5-8.0) Ur Specific [place] 1.020 (1.000-1.035) Urine Protein Negative (Negative) Urine Glucose (UA) Negative (Negative) g/dL Urine Ketones Negative (NEGATIVE) Urine Occult Blood Negative (Negative) Urine Nitrate Negative (Negative) Urine Bilirubin 1+ H (NEGATIVE) Ur Bilirubin Confirm Negative (Negative) Urine Urobilinogen 0.2 (0.2) E.U./dL Ur Leukocyte Esterase Negative (NEGATIVE) Urine RBC 1-5/hpf (0-5/HPF) Urine WBC 1-5/hpf (0-5/HPF) Ur Squamous Epith Cells 1-5 /hpf (0-5/HPF) Urine Bacteria Occasional (0-1) (None) Ur Culture Indicated? Cult not indicated U Opiates 300ng/mL cut (Negative) Ur Oxycodone Screen (Negative) Urine Methadone Screen (Negative) Ur Barbiturates Screen (Negative) U Tricyclic Antidepress (Negative) Ur Phencyclidine Scrn (Negative) Ur Amphetamines Screen (Negative) U Methamphetamines Scrn (Negative) Ur MDMA Scrn (Ecstasy) (Negative) U Benzodiazepines Scrn (Negative) Urine Cocaine Screen (Negative) U Marijuana (THC) Screen (Negative) Ethyl Alcohol ( - 10) mg/dL Chlamy pneumoniae PCR (Not Detect) Adenovirus (PCR) (Not Detect) B. pertussis DNA (PCR) (Not Detecte) B.parapertussis DNA PCR (Not Detecte) Coronavirus OC43 (PCR) (Not Detect) Coronavirus HKU1 (PCR) (Not Detect) Coronavirus 229E (PCR) (Not Detect) SARS-CoV-2 (PCR) (Not Detecte) Coronavirus NL63 (PCR) (Not Detect) Human Metapneumovir PCR (Not Detect) Influenza Type A (PCR) (Not Detect) Influenza Type B (PCR) (Not Detect) M. pneumoniae (PCR) (Not Detect) Parainfluenza 1 (PCR) (Not Detect) Parainfluenza 2 (PCR) (Not Detect) Parainfluenza 3 (PCR) (Not Detect) Parainfluenza 4 (PCR) (Not Detect) RSV (PCR) (Not Detect) Entero/Rhino (PCR) (Not Detect) 12/14/22 12/14/22 12/14/22 Range/Units 22:30 22:30 22:30 WBC (4.5-11.0) X10^3/uL RBC (4.0-5.2) X10^6/uL Hgb (12.0-16.0) g/dL Hct (36-46) % MCV (80-100) fL MCH (26-34) PG MCHC (30-36) % RDW (11.6-14.8) % Plt Count (150-400) X10^3/uL Neut % (Auto) (50-75) % Lymph % (Auto) (25-40) % [place] % (Auto) (3-14) % Eos % (Auto) (2-4) % Baso % (Auto) (0-2) % Neut # (Auto) (1823-9677) /uL Lymph # (Auto) (9806-6402) /uL [place] # (Auto) (0-900) /uL Eos # (Auto) (0-450) /uL Baso # (Auto) (0-100) /uL ESR (0-20) MM/HR PT 118.2 H D (10.1-12.7) SECONDS INR 10.0 H* (0.9-1.3) APTT (26-36) SECONDS Sodium 125 L (137-145) mmol/L Potassium 3.2 L (3.4-5.1) mmol/L Chloride 91 L (98-107) mmol/L Carbon Dioxide 21 L (22-32) mmol/L BUN 56 H (7-17) mg/dL Creatinine 4.50 H (0.52-1.04) mg/dL Estimated GFR 9 L (>60) mL/min BUN/Creatinine Ratio 12.4 (6-22) Glucose 120 H (80-110) mg/dL Lactate 1.9 (0.7-2.1) mmol/L Calcium 7.2 L (8.4-10.2) mg/dL Magnesium (1.6-2.3) mg/dL Total Bilirubin 0.7 (0.2-1.3) mg/dL AST 25 (14-36) IU/L ALT 21 (<35) IU/L Alkaline Phosphatase 92 (38-126) U/L Ammonia (9-30) umol/L Total Creatine Kinase 33 (30-135) U/L CK-MB (CK-2) TNP CK-MB (CK-2) Rel Index TNP Troponin I 0.043 H (0.01-0.034) ng/mL C-Reactive Protein (<1.0) mg/dL Total Protein 4.7 L (6.3-8.2) g/dL Albumin 2.3 L (3.5-5.0) g/dL Globulin 2.4 (1.7-4.1) g/dL Albumin/Globulin Ratio 1.0 (1.0-2.8) Lipase (23-300) U/L Procalcitonin 1.11 H (<0.5) ng/mL Urine Color Urine Appearance Urine pH (4.5-8.0) Ur Specific [place] (1.000-1.035) Urine Protein (Negative) Urine Glucose (UA) (Negative) g/dL Urine Ketones (NEGATIVE) Urine Occult Blood (Negative) Urine Nitrate (Negative) Urine Bilirubin (NEGATIVE) Ur Bilirubin Confirm (Negative) Urine Urobilinogen (0.2) E.U./dL Ur Leukocyte Esterase (NEGATIVE) Urine RBC (0-5/HPF) Urine WBC (0-5/HPF) Ur Squamous Epith Cells (0-5/HPF) Urine Bacteria (None) Ur Culture Indicated? U Opiates 300ng/mL cut (Negative) Ur Oxycodone Screen (Negative) Urine Methadone Screen (Negative) Ur Barbiturates Screen (Negative) U Tricyclic Antidepress (Negative) Ur Phencyclidine Scrn (Negative) Ur Amphetamines Screen (Negative) U Methamphetamines Scrn (Negative) Ur MDMA Scrn (Ecstasy) (Negative) U Benzodiazepines Scrn (Negative) Urine Cocaine Screen (Negative) U Marijuana (THC) Screen (Negative) Ethyl Alcohol ( - 10) mg/dL Chlamy pneumoniae PCR (Not Detect) Adenovirus (PCR) (Not Detect) B. pertussis DNA (PCR) (Not Detecte) B.parapertussis DNA PCR (Not Detecte) Coronavirus OC43 (PCR) (Not Detect) Coronavirus HKU1 (PCR) (Not Detect) Coronavirus 229E (PCR) (Not Detect) SARS-CoV-2 (PCR) (Not Detecte) Coronavirus NL63 (PCR) (Not Detect) Human Metapneumovir PCR (Not Detect) Influenza Type A (PCR) (Not Detect) Influenza Type B (PCR) (Not Detect) M. pneumoniae (PCR) (Not Detect) Parainfluenza 1 (PCR) (Not Detect) Parainfluenza 2 (PCR) (Not Detect) Parainfluenza 3 (PCR) (Not Detect) Parainfluenza 4 (PCR) (Not Detect) RSV (PCR) (Not Detect) Entero/Rhino (PCR) (Not Detect) 12/15/22 12/15/22 12/15/22 Range/Units 03:50 03:50 03:50 WBC 14.5 H (4.5-11.0) X10^3/uL RBC 2.50 L (4.0-5.2) X10^6/uL Hgb 7.8 L (12.0-16.0) g/dL Hct 24.6 L (36-46) % MCV 98.3 (80-100) fL MCH 31.2 (26-34) PG MCHC 31.7 (30-36) % RDW 19.2 H (11.6-14.8) % Plt Count 327 (150-400) X10^3/uL Neut % (Auto) 93.3 H (50-75) % Lymph % (Auto) 1.8 L (25-40) % [place] % (Auto) 4.2 (3-14) % Eos % (Auto) 0.2 L (2-4) % Baso % (Auto) 0.5 (0-2) % Neut # (Auto) 25398 H (5376-2694) /uL Lymph # (Auto) 300 L (5855-5869) /uL [place] # (Auto) 600 (0-900) /uL Eos # (Auto) 0 (0-450) /uL Baso # (Auto) 100 (0-100) /uL ESR (0-20) MM/HR PT 124.8 H D (10.1-12.7) SECONDS INR 10.6 H* (0.9-1.3) APTT (26-36) SECONDS Sodium 125 L (137-145) mmol/L Potassium 2.9 L (3.4-5.1) mmol/L Chloride 88 L (98-107) mmol/L Carbon Dioxide 23 (22-32) mmol/L BUN 49 H (7-17) mg/dL Creatinine 4.51 H (0.52-1.04) mg/dL Estimated GFR 9 L (>60) mL/min BUN/Creatinine Ratio 10.9 (6-22) Glucose 135 H (80-110) mg/dL Lactate (0.7-2.1) mmol/L Calcium 7.2 L (8.4-10.2) mg/dL Magnesium (1.6-2.3) mg/dL Total Bilirubin 0.5 (0.2-1.3) mg/dL AST 27 (14-36) IU/L ALT 23 (<35) IU/L Alkaline Phosphatase 105 (38-126) U/L Ammonia (9-30) umol/L Total Creatine Kinase (30-135) U/L CK-MB (CK-2) CK-MB (CK-2) Rel Index Troponin I (0.01-0.034) ng/mL C-Reactive Protein (<1.0) mg/dL Total Protein 5.0 L (6.3-8.2) g/dL Albumin 2.5 L (3.5-5.0) g/dL Globulin 2.5 (1.7-4.1) g/dL Albumin/Globulin Ratio 1.0 (1.0-2.8) Lipase (23-300) U/L Procalcitonin (<0.5) ng/mL Urine Color Urine Appearance Urine pH (4.5-8.0) Ur Specific [place] (1.000-1.035) Urine Protein (Negative) Urine Glucose (UA) (Negative) g/dL Urine Ketones (NEGATIVE) Urine Occult Blood (Negative) Urine Nitrate (Negative) Urine Bilirubin (NEGATIVE) Ur Bilirubin Confirm (Negative) Urine Urobilinogen (0.2) E.U./dL Ur Leukocyte Esterase (NEGATIVE) Urine RBC (0-5/HPF) Urine WBC (0-5/HPF) Ur Squamous Epith Cells (0-5/HPF) Urine Bacteria (None) Ur Culture Indicated? U Opiates 300ng/mL cut (Negative) Ur Oxycodone Screen (Negative) Urine Methadone Screen (Negative) Ur Barbiturates Screen (Negative) U Tricyclic Antidepress (Negative) Ur Phencyclidine Scrn (Negative) Ur Amphetamines Screen (Negative) U Methamphetamines Scrn (Negative) Ur MDMA Scrn (Ecstasy) (Negative) U Benzodiazepines Scrn (Negative) Urine Cocaine Screen (Negative) U Marijuana (THC) Screen (Negative) Ethyl Alcohol ( - 10) mg/dL Chlamy pneumoniae PCR (Not Detect) Adenovirus (PCR) (Not Detect) B. pertussis DNA (PCR) (Not Detecte) B.parapertussis DNA PCR (Not Detecte) Coronavirus OC43 (PCR) (Not Detect) Coronavirus HKU1 (PCR) (Not Detect) Coronavirus 229E (PCR) (Not Detect) SARS-CoV-2 (PCR) (Not Detecte) Coronavirus NL63 (PCR) (Not Detect) Human Metapneumovir PCR (Not Detect) Influenza Type A (PCR) (Not Detect) Influenza Type B (PCR) (Not Detect) M. pneumoniae (PCR) (Not Detect) Parainfluenza 1 (PCR) (Not Detect) Parainfluenza 2 (PCR) (Not Detect) Parainfluenza 3 (PCR) (Not Detect) Parainfluenza 4 (PCR) (Not Detect) RSV (PCR) (Not Detect) Entero/Rhino (PCR) (Not Detect) 12/15/22 12/15/22 12/15/22 Range/Units 03:50 03:50 08:15 WBC (4.5-11.0) X10^3/uL RBC (4.0-5.2) X10^6/uL Hgb (12.0-16.0) g/dL Hct (36-46) % MCV (80-100) fL MCH (26-34) PG MCHC (30-36) % RDW (11.6-14.8) % Plt Count (150-400) X10^3/uL Neut % (Auto) (50-75) % Lymph % (Auto) (25-40) % [place] % (Auto) (3-14) % Eos % (Auto) (2-4) % Baso % (Auto) (0-2) % Neut # (Auto) (0872-3004) /uL Lymph # (Auto) (0509-0165) /uL [place] # (Auto) (0-900) /uL Eos # (Auto) (0-450) /uL Baso # (Auto) (0-100) /uL ESR 90 H (0-20) MM/HR PT (10.1-12.7) SECONDS INR (0.9-1.3) APTT (26-36) SECONDS Sodium (137-145) mmol/L Potassium (3.4-5.1) mmol/L Chloride (98-107) mmol/L Carbon Dioxide (22-32) mmol/L BUN (7-17) mg/dL Creatinine (0.52-1.04) mg/dL Estimated GFR (>60) mL/min BUN/Creatinine Ratio (6-22) Glucose (80-110) mg/dL Lactate (0.7-2.1) mmol/L Calcium (8.4-10.2) mg/dL Magnesium (1.6-2.3) mg/dL Total Bilirubin (0.2-1.3) mg/dL AST (14-36) IU/L ALT (<35) IU/L Alkaline Phosphatase (38-126) U/L Ammonia (9-30) umol/L Total Creatine Kinase (30-135) U/L CK-MB (CK-2) CK-MB (CK-2) Rel Index Troponin I (0.01-0.034) ng/mL C-Reactive Protein 7.4 H (<1.0) mg/dL Total Protein (6.3-8.2) g/dL Albumin (3.5-5.0) g/dL Globulin (1.7-4.1) g/dL Albumin/Globulin Ratio (1.0-2.8) Lipase (23-300) U/L Procalcitonin (<0.5) ng/mL Urine Color Urine Appearance Urine pH (4.5-8.0) Ur Specific [place] (1.000-1.035) Urine Protein (Negative) Urine Glucose (UA) (Negative) g/dL Urine Ketones (NEGATIVE) Urine Occult Blood (Negative) Urine Nitrate (Negative) Urine Bilirubin (NEGATIVE) Ur Bilirubin Confirm (Negative) Urine Urobilinogen (0.2) E.U./dL Ur Leukocyte Esterase (NEGATIVE) Urine RBC (0-5/HPF) Urine WBC (0-5/HPF) Ur Squamous Epith Cells (0-5/HPF) Urine Bacteria (None) Ur Culture Indicated? U Opiates 300ng/mL cut (Negative) Ur Oxycodone Screen (Negative) Urine Methadone Screen (Negative) Ur Barbiturates Screen (Negative) U Tricyclic Antidepress (Negative) Ur Phencyclidine Scrn (Negative) Ur Amphetamines Screen (Negative) U Methamphetamines Scrn (Negative) Ur MDMA Scrn (Ecstasy) (Negative) U Benzodiazepines Scrn (Negative) Urine Cocaine Screen (Negative) U Marijuana (THC) Screen (Negative) Ethyl Alcohol ( - 10) mg/dL Chlamy pneumoniae PCR Not detected (Not Detect) Adenovirus (PCR) Not detected (Not Detect) B. pertussis DNA (PCR) Not detected (Not Detecte) B.parapertussis DNA PCR Not detected (Not Detecte) Coronavirus OC43 (PCR) Not detected (Not Detect) Coronavirus HKU1 (PCR) Not detected (Not Detect) Coronavirus 229E (PCR) Not detected (Not Detect) SARS-CoV-2 (PCR) Not detected (Not Detecte) Coronavirus NL63 (PCR) Not detected (Not Detect) Human Metapneumovir PCR Not detected (Not Detect) Influenza Type A (PCR) Not detected (Not Detect) Influenza Type B (PCR) Not detected (Not Detect) M. pneumoniae (PCR) Not detected (Not Detect) Parainfluenza 1 (PCR) Not detected (Not Detect) Parainfluenza 2 (PCR) Not detected (Not Detect) Parainfluenza 3 (PCR) Not detected (Not Detect) Parainfluenza 4 (PCR) Not detected (Not Detect) RSV (PCR) Not detected (Not Detect) Entero/Rhino (PCR) Not detected (Not Detect) 12/15/22 12/15/22 12/15/22 Range/Units 08:25 08:25 08:25 WBC 14.7 H (4.5-11.0) X10^3/uL RBC 2.31 L (4.0-5.2) X10^6/uL Hgb 7.2 L (12.0-16.0) g/dL Hct 22.4 L (36-46) % MCV 97.0 (80-100) fL MCH 31.4 (26-34) PG MCHC 32.4 (30-36) % RDW 18.5 H (11.6-14.8) % Plt Count 328 (150-400) X10^3/uL Neut % (Auto) 91.9 H (50-75) % Lymph % (Auto) 1.5 L (25-40) % [place] % (Auto) 6.2 (3-14) % Eos % (Auto) 0.2 L (2-4) % Baso % (Auto) 0.2 (0-2) % Neut # (Auto) 29153 H (8723-7013) /uL Lymph # (Auto) 200 L (0140-3893) /uL [place] # (Auto) 900 (0-900) /uL Eos # (Auto) 0 (0-450) /uL Baso # (Auto) 0 (0-100) /uL ESR (0-20) MM/HR PT 93.6 H D (10.1-12.7) SECONDS INR 8.0 H* (0.9-1.3) APTT (26-36) SECONDS Sodium 122 L (137-145) mmol/L Potassium 3.1 L (3.4-5.1) mmol/L Chloride 87 L (98-107) mmol/L Carbon Dioxide 23 (22-32) mmol/L BUN 46 H (7-17) mg/dL Creatinine 3.96 H (0.52-1.04) mg/dL Estimated GFR 11 L (>60) mL/min BUN/Creatinine Ratio 11.6 (6-22) Glucose 108 (80-110) mg/dL Lactate (0.7-2.1) mmol/L Calcium 7.2 L (8.4-10.2) mg/dL Magnesium (1.6-2.3) mg/dL Total Bilirubin 0.4 (0.2-1.3) mg/dL AST 30 (14-36) IU/L ALT 21 (<35) IU/L Alkaline Phosphatase 93 (38-126) U/L Ammonia (9-30) umol/L Total Creatine Kinase (30-135) U/L CK-MB (CK-2) CK-MB (CK-2) Rel Index Troponin I (0.01-0.034) ng/mL C-Reactive Protein (<1.0) mg/dL Total Protein 4.7 L (6.3-8.2) g/dL Albumin 2.3 L (3.5-5.0) g/dL Globulin 2.4 (1.7-4.1) g/dL Albumin/Globulin Ratio 1.0 (1.0-2.8) Lipase (23-300) U/L Procalcitonin (<0.5) ng/mL Urine Color Urine Appearance Urine pH (4.5-8.0) Ur Specific [place] (1.000-1.035) Urine Protein (Negative) Urine Glucose (UA) (Negative) g/dL Urine Ketones (NEGATIVE) Urine Occult Blood (Negative) Urine Nitrate (Negative) Urine Bilirubin (NEGATIVE) Ur Bilirubin Confirm (Negative) Urine Urobilinogen (0.2) E.U./dL Ur Leukocyte Esterase (NEGATIVE) Urine RBC (0-5/HPF) Urine WBC (0-5/HPF) Ur Squamous Epith Cells (0-5/HPF) Urine Bacteria (None) Ur Culture Indicated? U Opiates 300ng/mL cut (Negative) Ur Oxycodone Screen (Negative) Urine Methadone Screen (Negative) Ur Barbiturates Screen (Negative) U Tricyclic Antidepress (Negative) Ur Phencyclidine Scrn (Negative) Ur Amphetamines Screen (Negative) U Methamphetamines Scrn (Negative) Ur MDMA Scrn (Ecstasy) (Negative) U Benzodiazepines Scrn (Negative) Urine Cocaine Screen (Negative) U Marijuana (THC) Screen (Negative) Ethyl Alcohol ( - 10) mg/dL Chlamy pneumoniae PCR (Not Detect) Adenovirus (PCR) (Not Detect) B. pertussis DNA (PCR) (Not Detecte) B.parapertussis DNA PCR (Not Detecte) Coronavirus OC43 (PCR) (Not Detect) Coronavirus HKU1 (PCR) (Not Detect) Coronavirus 229E (PCR) (Not Detect) SARS-CoV-2 (PCR) (Not Detecte) Coronavirus NL63 (PCR) (Not Detect) Human Metapneumovir PCR (Not Detect) Influenza Type A (PCR) (Not Detect) Influenza Type B (PCR) (Not Detect) M. pneumoniae (PCR) (Not Detect) Parainfluenza 1 (PCR) (Not Detect) Parainfluenza 2 (PCR) (Not Detect) Parainfluenza 3 (PCR) (Not Detect) Parainfluenza 4 (PCR) (Not Detect) RSV (PCR) (Not Detect) Entero/Rhino (PCR) (Not Detect) 12/15/22 12/15/22 12/15/22 Range/Units 08:25 12:55 12:55 WBC 11.4 H (4.5-11.0) X10^3/uL RBC 2.16 L (4.0-5.2) X10^6/uL Hgb 6.8 L* (12.0-16.0) g/dL Hct 21.0 L (36-46) % MCV 97.5 (80-100) fL MCH 31.7 (26-34) PG MCHC 32.5 (30-36) % RDW 18.5 H (11.6-14.8) % Plt Count 242 (150-400) X10^3/uL Neut % (Auto) 88.9 H (50-75) % Lymph % (Auto) 3.4 L (25-40) % [place] % (Auto) 6.9 (3-14) % Eos % (Auto) 0.7 L (2-4) % Baso % (Auto) 0.1 (0-2) % Neut # (Auto) 66912 H (3501-7415) /uL Lymph # (Auto) 400 L (0207-0874) /uL [place] # (Auto) 800 (0-900) /uL Eos # (Auto) 100 (0-450) /uL Baso # (Auto) 0 (0-100) /uL ESR (0-20) MM/HR PT (10.1-12.7) SECONDS INR (0.9-1.3) APTT (26-36) SECONDS Sodium 121 L (137-145) mmol/L Potassium 3.2 L (3.4-5.1) mmol/L Chloride 86 L (98-107) mmol/L Carbon Dioxide 24 (22-32) mmol/L BUN 46 H (7-17) mg/dL Creatinine 4.12 H (0.52-1.04) mg/dL Estimated GFR 10 L (>60) mL/min BUN/Creatinine Ratio 11.2 (6-22) Glucose 118 H (80-110) mg/dL Lactate (0.7-2.1) mmol/L Calcium 7.1 L (8.4-10.2) mg/dL Magnesium (1.6-2.3) mg/dL Total Bilirubin (0.2-1.3) mg/dL AST (14-36) IU/L ALT (<35) IU/L Alkaline Phosphatase (38-126) U/L Ammonia (9-30) umol/L Total Creatine Kinase (30-135) U/L CK-MB (CK-2) CK-MB (CK-2) Rel Index Troponin I 0.790 H* (0.01-0.034) ng/mL C-Reactive Protein (<1.0) mg/dL Total Protein (6.3-8.2) g/dL Albumin (3.5-5.0) g/dL Globulin (1.7-4.1) g/dL Albumin/Globulin Ratio (1.0-2.8) Lipase (23-300) U/L Procalcitonin (<0.5) ng/mL Urine Color Urine Appearance Urine pH (4.5-8.0) Ur Specific [place] (1.000-1.035) Urine Protein (Negative) Urine Glucose (UA) (Negative) g/dL Urine Ketones (NEGATIVE) Urine Occult Blood (Negative) Urine Nitrate (Negative) Urine Bilirubin (NEGATIVE) Ur Bilirubin Confirm (Negative) Urine Urobilinogen (0.2) E.U./dL Ur Leukocyte Esterase (NEGATIVE) Urine RBC (0-5/HPF) Urine WBC (0-5/HPF) Ur Squamous Epith Cells (0-5/HPF) Urine Bacteria (None) Ur Culture Indicated? U Opiates 300ng/mL cut (Negative) Ur Oxycodone Screen (Negative) Urine Methadone Screen (Negative) Ur Barbiturates Screen (Negative) U Tricyclic Antidepress (Negative) Ur Phencyclidine Scrn (Negative) Ur Amphetamines Screen (Negative) U Methamphetamines Scrn (Negative) Ur MDMA Scrn (Ecstasy) (Negative) U Benzodiazepines Scrn (Negative) Urine Cocaine Screen (Negative) U Marijuana (THC) Screen (Negative) Ethyl Alcohol ( - 10) mg/dL Chlamy pneumoniae PCR (Not Detect) Adenovirus (PCR) (Not Detect) B. pertussis DNA (PCR) (Not Detecte) B.parapertussis DNA PCR (Not Detecte) Coronavirus OC43 (PCR) (Not Detect) Coronavirus HKU1 (PCR) (Not Detect) Coronavirus 229E (PCR) (Not Detect) SARS-CoV-2 (PCR) (Not Detecte) Coronavirus NL63 (PCR) (Not Detect) Human Metapneumovir PCR (Not Detect) Influenza Type A (PCR) (Not Detect) Influenza Type B (PCR) (Not Detect) M. pneumoniae (PCR) (Not Detect) Parainfluenza 1 (PCR) (Not Detect) Parainfluenza 2 (PCR) (Not Detect) Parainfluenza 3 (PCR) (Not Detect) Parainfluenza 4 (PCR) (Not Detect) RSV (PCR) (Not Detect) Entero/Rhino (PCR) (Not Detect) 12/15/22 Range/Units 12:55 WBC (4.5-11.0) X10^3/uL RBC (4.0-5.2) X10^6/uL Hgb (12.0-16.0) g/dL Hct (36-46) % MCV (80-100) fL MCH (26-34) PG MCHC (30-36) % RDW (11.6-14.8) % Plt Count (150-400) X10^3/uL Neut % (Auto) (50-75) % Lymph % (Auto) (25-40) % [place] % (Auto) (3-14) % Eos % (Auto) (2-4) % Baso % (Auto) (0-2) % Neut # (Auto) (7197-0047) /uL Lymph # (Auto) (2264-9572) /uL [place] # (Auto) (0-900) /uL Eos # (Auto) (0-450) /uL Baso # (Auto) (0-100) /uL ESR (0-20) MM/HR PT (10.1-12.7) SECONDS INR (0.9-1.3) APTT (26-36) SECONDS Sodium (137-145) mmol/L Potassium (3.4-5.1) mmol/L Chloride (98-107) mmol/L Carbon Dioxide (22-32) mmol/L BUN (7-17) mg/dL Creatinine (0.52-1.04) mg/dL Estimated GFR (>60) mL/min BUN/Creatinine Ratio (6-22) Glucose (80-110) mg/dL Lactate (0.7-2.1) mmol/L Calcium (8.4-10.2) mg/dL Magnesium 0.9 L* (1.6-2.3) mg/dL Total Bilirubin (0.2-1.3) mg/dL AST (14-36) IU/L ALT (<35) IU/L Alkaline Phosphatase (38-126) U/L Ammonia (9-30) umol/L Total Creatine Kinase (30-135) U/L CK-MB (CK-2) CK-MB (CK-2) Rel Index Troponin I (0.01-0.034) ng/mL C-Reactive Protein (<1.0) mg/dL Total Protein (6.3-8.2) g/dL Albumin (3.5-5.0) g/dL Globulin (1.7-4.1) g/dL Albumin/Globulin Ratio (1.0-2.8) Lipase (23-300) U/L Procalcitonin (<0.5) ng/mL Urine Color Urine Appearance Urine pH (4.5-8.0) Ur Specific [place] (1.000-1.035) Urine Protein (Negative) Urine Glucose (UA) (Negative) g/dL Urine Ketones (NEGATIVE) Urine Occult Blood (Negative) Urine Nitrate (Negative) Urine Bilirubin (NEGATIVE) Ur Bilirubin Confirm (Negative) Urine Urobilinogen (0.2) E.U./dL Ur Leukocyte Esterase (NEGATIVE) Urine RBC (0-5/HPF) Urine WBC (0-5/HPF) Ur Squamous Epith Cells (0-5/HPF) Urine Bacteria (None) Ur Culture Indicated? U Opiates 300ng/mL cut (Negative) Ur Oxycodone Screen (Negative) Urine Methadone Screen (Negative) Ur Barbiturates Screen (Negative) U Tricyclic Antidepress (Negative) Ur Phencyclidine Scrn (Negative) Ur Amphetamines Screen (Negative) U Methamphetamines Scrn (Negative) Ur MDMA Scrn (Ecstasy) (Negative) U Benzodiazepines Scrn (Negative) Urine Cocaine Screen (Negative) U Marijuana (THC) Screen (Negative) Ethyl Alcohol ( - 10) mg/dL Chlamy pneumoniae PCR (Not Detect) Adenovirus (PCR) (Not Detect) B. pertussis DNA (PCR) (Not Detecte) B.parapertussis DNA PCR (Not Detecte) Coronavirus OC43 (PCR) (Not Detect) Coronavirus HKU1 (PCR) (Not Detect) Coronavirus 229E (PCR) (Not Detect) SARS-CoV-2 (PCR) (Not Detecte) Coronavirus NL63 (PCR) (Not Detect) Human Metapneumovir PCR (Not Detect) Influenza Type A (PCR) (Not Detect) Influenza Type B (PCR) (Not Detect) M. pneumoniae (PCR) (Not Detect) Parainfluenza 1 (PCR) (Not Detect) Parainfluenza 2 (PCR) (Not Detect) Parainfluenza 3 (PCR) (Not Detect) Parainfluenza 4 (PCR) (Not Detect) RSV (PCR) (Not Detect) Entero/Rhino (PCR) (Not Detect) Point of Care Testing Glucose POC 108 Discharge Plan Departure Patient Disposition: Admitted As Inpatient Clinical Impression: Hallucinations, End-stage renal disease on peritoneal dialysis, Colitis, Esophageal mass Admit Date/Time: 12/15/22 17:28 Admit Provider: Jad White
[2022-12-14 12:46] LABS: Lipase 29 U/L (23-300)
[2022-12-14 13:04] LABS: Procalcitonin 1.21 ng/mL (<0.5)
[2022-12-14 13:10] LABS: PTT Partial Thromboplastin Tim 57 SECONDS (26-36)
[2022-12-14 13:17] LABS: INR 7.8 (0.9-1.3); Prothrombin Time 91.8 SECONDS (10.1-12.7)
--- NOTE | 2022-12-14 13:32 | PC.NURSE ---
Pt states she barely makes urine, sometimes every other day.
--- NOTE | 2022-12-14 13:35 | DI.CT.S_ITS ---
PROCEDURE: CT ABDOMEN PELVIS W CON INDICATIONS: vomiting, elevated inr, hallucinations TECHNIQUE: After the administration IV contrast, axial sections were acquired from the lung bases to the pubic symphysis. Coronal and sagittal reformats were performed. For radiation dose reduction, the following was used: automated exposure control, adjustment of mA and/or kV according to patient size. COMPARISON: CT, CT CHEST ABD PEL WO CON, 02/21/2022, 14:32. [facility], [place], PET NECK TO MID THIGH, 11/17/2022, 14:09. Located Within [facility], CT, CT CHEST WO CON, 07/31/2022, 10:31. [place], [place], [place] CT FUSION SKULL 2 THIGH, 08/23/2022, 11:27. FINDINGS: Image quality: Excellent. Lung bases: Trace pleural effusions bilaterally. Bibasilar scars and atelectasis. Mildly distended distal esophagus. There is a soft tissue density at the gastroesophageal junction. Differential diagnoses are infected fluid versus a mass Heart: Moderately enlarged. Severe coronary artery calcification. ABDOMEN: Liver: Nodular contour of liver suggesting cirrhosis. There is a 0.9 cm hypodense nodule in the anterior hepatic dome, most likely a cyst. Gallbladder: Not visualized. Biliary ducts: Mild intrahepatic biliary prominence. Common bile duct measures 9 mm. Pancreas: There are multiple cystic lesions in pancreas; the largest cyst measuring up to 2.3 x 2.9. cm. Spleen: Prominent size. Adrenal Glands: Unremarkable. Kidneys and Ureters: Small with bilateral renal cortical thinning and multiple renal cortical cysts. There is a 0.6 cm hyperdense nodule in the superior pole of the left kidney. Stomach and Bowel: There is gastric mucosal thickening. There is segment thickening of duodenum and proximal jejunum. There is also wall thickening involving the cecum, ascending colon, and proximal transverse colon. Scattered colonic diverticula. No acute diverticulitis. Peritoneum: There is a peritoneal dialysis catheter, presumably for dialysis. Mild pneumoperitoneum. Small amount of intraperitoneal fluid. No free air. Ventral Wall: No hernia. Abdominal Nodes: No retroperitoneal or mesenteric adenopathy by size criteria. Vessels: Aorta and inferior vena cava are normal in size. Severe atherosclerotic calcifications. PELVIS: Pelvic Organs: Unremarkable. Bladder: Unremarkable. Pelvic Nodes: No enlarged lymph nodes. Miscellaneous: No inguinal hernias are seen. Bones: Unremarkable. IMPRESSION: 1. Gastric mucosal thickening and segmental thickening of duodenum and proximal jejunum, suggesting gastroenteritis. 2. Mild thickening of cecum, ascending colon and proximal transverse colon suggesting mild colitis. 3. Diverticulosis without diverticulitis. 4. Nodular contour liver suggesting cirrhosis. 5. Multiple cystic changes in pancreas. Differential diagnoses are benign cyst versus IPMN. 6. Patulous distal esophagus. There is a soft tissue density at the gastroesophageal junction, which may be impacted fluid or mass. Recommend esophagram or EGD for follow-up. 7. Small amount of ascites. There is trace pneumoperitoneum, presumably related to the dialysis catheter. 8. Atrophic kidneys with renal cortical thinning and multiple renal cysts. A 0.6 cm hyperdense cortical nodule is noted in the superior pole of the left kidney. Cannot rule out a solid renal mass. Nonurgent renal ultrasound can be obtained for further evaluation. 9. Cardiomegaly. 10. Trace bilateral pleural effusions. Dictated by: Wilfredo Morin M.D. on 12/14/2022 at 15:23 Approved by: Wilfredo Morin M.D. on 12/14/2022 at 15:53
--- NOTE | 2022-12-14 13:35 | DI.CT.S_ITS ---
PROCEDURE: CT HEAD/BRAIN WO CON INDICATIONS: vomiting, elevated inr, hallucinations TECHNIQUE: Noncontrast 4.5 mm thick angled axial sections acquired from the foramen magnum to the vertex, with coronal and sagittal reformats. For radiation dose reduction, the following was used: automated exposure control, adjustment of mA and/or kV according to patient size. COMPARISON: [facility], CT, CT HEAD/BRAIN WO CON, 10/18/2022, 18:40. FINDINGS: Image quality: Excellent. CSF spaces: Basal cisterns are patent. No extra-axial fluid collections. The ventricles are symmetric in size and shape. Brain: No intracranial bleeds or masses. There is cerebral volume loss for age, with resultant ventricular and sulcal prominence. There are periventricular and deep white matter chronic small vessel ischemic changes. There is intracranial internal carotid artery atherosclerosis. Skull and face: Calvarium and visualized facial bones appear intact, without suspicious lesions. Sinuses: Visualized sinuses and mastoids are clear. IMPRESSION: 1. No acute intracranial abnormality. 2. Cerebral volume loss and small vessel ischemic changes. Dictated by: Vini Walker M.D. on 12/14/2022 at 14:58 Approved by: Vini Walker M.D. on 12/14/2022 at 15:01
[2022-12-14] MEDS: SODIUM CHLORIDE 0.9% 250 ML 1000 ML IV (15:00)
[2022-12-14] MEDS: levoFLOXacin 750 MG/150 ML PIGGYBACK 100 MG IV (15:00)
[2022-12-14 17:48] LABS: Appearance Urine UA SL CLOUDY; Bilirubin Urine UA 1+ (NEGATIVE); Color Urine UA BROWN; Glucose Urine UA NEGATIVE (Negative); Ketones Urine UA NEGATIVE (NEGATIVE); Leukocyte Esterase Urine UA NEGATIVE (NEGATIVE); Nitrite Urine UA NEGATIVE (Negative); Occult Blood Urine UA NEGATIVE (Negative); Protein Urine UA NEGATIVE (Negative); Urobilinogen Urine UA 0.2 E.U./dL (0.2)
--- NOTE | 2022-12-14 17:48 | PC.NURSE ---
[employer] MACHINE OPERATOR Note: Called the following places for transfer: 17[facility] spoke with Stacy and pt got put on the waitlist. Facesheet was sent. [facility] spoke with Tutu and pt is on the waitlist. Facesheet and images were pushed. 1723 [facility] spoke with Tatyana and could not accept xfer. Currently boarding at max capacity. 1732 spoke with Rebekah and waitlist is closed because of max capacity and not enough staffing to accommodate. Rebekah stated to call back around 2300 to see if aircraft fueler will have availability. Called [facility] about pt at 1735 and spoke with Maria R.
[2022-12-14 17:50] LABS: Ethanol (ETOH) < 10 mg/dL
[2022-12-14 18:04] LABS: Ictotest Urine Negative (Negative)
[2022-12-14 18:05] LABS: Lactate (Lactic Acid) 1.4 mmol/L (0.7-2.1)
--- NOTE | 2022-12-14 18:12 | PC.NURSE ---
Daughter at the bedside, reports pt is hallucinating, physician aware. Daughter states pt's BP is normally in the 90's systolic. Physician aware.
[2022-12-14 18:15] LABS: Ur Creatinine Normal (Normal); Ur Specific Gravity Normal (Normal); Urine pH Normal (Normal)
[2022-12-14 18:16] LABS: Urine Tetrahydrocannabinol Negative (Negative)
[2022-12-14 18:17] LABS: RBC Urine 1-5/HPF (0-5/HPF); Squamous Epithelial Cell Urine 1-5 /HPF (0-5/HPF); UR Morphine/Opiate cutoff 300 Negative (Negative); Urine Amphetamines Negative (Negative); Urine Cocaine Negative (Negative); Urine Methamphetamines Negative (Negative); Urine Phencyclidine Negative (Negative); WBC Urine 1-5/HPF (0-5/HPF)
[2022-12-14 18:18] LABS: Bacteria Urine Occasional (0-1); Culture Indicated Urine Cult Not Indicated; Urine Barbiturates Negative (Negative); Urine Benzodiazepines Positive (Negative); Urine MDMA Negative (Negative); Urine Methadone Negative (Negative); Urine Oxycodone Positive (Negative); Urine Tricyclic Antidepressant Negative (Negative)
--- NOTE | 2022-12-14 18:18 | PC.NURSE ---
Pts BP has been labile throughout the afternoon, varying between 115 systolic to 70 systolic. Physician aware. No new orders. Daughter states pt's systolic is typically in the 90's.
--- NOTE | 2022-12-14 18:49 | PC.NURSE ---
Dr. Hampton spoke with family, they are bringing her peritoneal dialysis system to ED and daughter will perform that task here for the pt.
--- NOTE | 2022-12-14 19:19 | PC.NURSE ---
BG 109, physician verbal order minimal PO fluids ok
[2022-12-14] MEDS: SODIUM CHLORIDE 0.9% 500 ML 1000 ML IV (21:32)
[2022-12-14] MEDS: DEXTROSE 10 % IN WATER 1,000 ML 100 ML IV (22:05)
--- NOTE | 2022-12-14 22:23 | DI.CT.S_ITS ---
PROCEDURE: CT HEAD/BRAIN WO CON INDICATIONS: confusion TECHNIQUE: Noncontrast 4.5 mm thick angled axial sections acquired from the foramen magnum to the vertex, with coronal and sagittal reformats. For radiation dose reduction, the following was used: automated exposure control, adjustment of mA and/or kV according to patient size. COMPARISON: [facility], CT, CT HEAD/BRAIN WO CON, 12/14/2022, 14:24. FINDINGS: Image quality: Mild motion artifact CSF spaces: Basal cis minimal motion ns are patent. Lateral ventricles are symmetric. Volume: Vascular calcifications. Periventricular white matter disease is commonly seen with chronic microangiopathy. Volume loss is present. These findings are moderate. Brain: No intracranial hemorrhage. Meraz-white differentiation is grossly maintained. Craniofacial structures: No displaced fracture. Sinuses are clear. Orbits are intact. IMPRESSION: No acute intracranial abnormality or significant changes compared to prior. If there is high concern for parenchymal pathology, consider further evaluation with MRI. Dictated by: Roger ePters M.D. on 12/14/2022 at 23:05 Approved by: Roger Peters M.D. on 12/14/2022 at 23:07
[2022-12-14 22:43] LABS: Add Manual Diff / Slide Review NO; Basophils Absolute Auto 0 /uL (0-100); Basophils Percent Auto 0.2 % (0-2); Eosinophils Absolute Auto 100 /uL (0-450); Hematocrit 21.8 % (36-46); Hemoglobin 7.1 g/dL (12.0-16.0); Lymphocytes Absolute Auto 500 /uL (1100-4500); Lymphocytes Percent Auto 4.5 % (25-40); Mean Corpuscular HGB Conc 32.8 % (30-36); Mean Corpuscular Hemoglobin 32.1 PG (26-34); Mean Corpuscular Volume 97.8 fL (80-100); Monocytes Absolute Auto 700 /uL (0-900); Monocytes Percent Auto 6.7 % (3-14); Neutrophils Absolute Auto 9700 /uL (1500-7000); Neutrophils Percent Auto 87.6 % (50-75); Platelet Count 293 X10^3/uL (150-400); Red Blood Cell Count 2.23 X10^6/uL (4.0-5.2); Red Cell Distribution Width 18.7 % (11.6-14.8); White Blood Cell Count 11.1 X10^3/uL (4.5-11.0)
[2022-12-14 22:51] LABS: Lactate (Lactic Acid) 1.9 mmol/L (0.7-2.1)
[2022-12-14 22:52] LABS: Alanine Aminotransferase 21 IU/L (<35); Albumin 2.3 g/dL (3.5-5.0); Alkaline Phosphatase 92 U/L (38-126); Aspartate Aminotransferase 25 IU/L (14-36); BUN Creatinine Ratio 12.4 (6-22); Bilirubin Total 0.7 mg/dL (0.2-1.3); Blood Urea Nitrogen 56 mg/dL (7-17); Calcium 7.2 mg/dL (8.4-10.2); Carbon Dioxide 21 mmol/L (22-32); Chloride 91 mmol/L (98-107); Creatine Kinase 33 U/L (30-135); Estimated Glomerular Filt Rate 9 mL/min (>60); Globulin 2.4 g/dL (1.7-4.1); Glucose 120 mg/dL (80-110); HEMOLYSIS 21 (0-50); Potassium 3.2 mmol/L (3.4-5.1); Sodium 125 mmol/L (137-145); Total Protein 4.7 g/dL (6.3-8.2)
[2022-12-14 22:57] LABS: Prothrombin Time 118.2 SECONDS (10.1-12.7)
[2022-12-14 23:04] LABS: Troponin I 0.043 ng/mL (0.01-0.034)
[2022-12-14] MEDS: PHYTONADIONE (VIT K1) 5 MG TABLET 10 MG PO (23:05)
--- NOTE | 2022-12-14 23:05 | PC.NURSE ---
Addendum entered by Pham Bland CNA 12/15/22 00:58: Update on bed placement attempts: [facility] called. They have no bed availability. [place]: 53 Spoke to [facility]. They have no beds. At capacity, especially for telemetry beds. [facility]: 55 spoke to [facility]. He said they don't have movement. Original Note: PUBLIC HEALTH REPRESENTATIVE note: Attempting to find placement for patient. Followed up with the following people: [place]: 2137 Spoke to Rosie. Still on the waitlist. [facility]: 2151 Spoke to Mateo. He is going to get back to us.
[2022-12-14 23:08] LABS: Procalcitonin 1.11 ng/mL (<0.5)
[2022-12-15] VITALS (87 sets, daily range): BP systolic 61–147; BP diastolic 34–80; PULSE 77–141; RESP 7–39; TEMP 37.3; O2SAT 76–98; BMI 19.4
[2022-12-15] MEDS: HALOPERIDOL 5 MG/ML VIAL 1 MG IV (00:01)
--- NOTE | 2022-12-15 00:04 | PC.NURSE ---
Daughter at bedside and at approximately 2155 hrs patient became confused, unable to focus on people around, unable to talk and unable to talk. patient was pale at that time. Dr. Billings called to bedside to assess.
[2022-12-15] MEDS: METOPROLOL TARTRATE 5 MG/5 ML INJ IV (00:29)
--- NOTE | 2022-12-15 01:27 | PC.NURSE ---
Patient continues to call out honey, honey and help me over and over and remains awake at this time.
--- NOTE | 2022-12-15 02:45 | PC.NURSE ---
Patient eating some rice krispies a total of 11 bites but patient remains restless
[2022-12-15 04:14] LABS: Add Manual Diff / Slide Review NO; Basophils Absolute Auto 100 /uL (0-100); Basophils Percent Auto 0.5 % (0-2); Eosinophils Absolute Auto 0 /uL (0-450); Eosinophils Percent Auto 0.2 % (2-4); Hematocrit 24.6 % (36-46); Hemoglobin 7.8 g/dL (12.0-16.0); Lymphocytes Absolute Auto 300 /uL (1100-4500); Lymphocytes Percent Auto 1.8 % (25-40); Mean Corpuscular HGB Conc 31.7 % (30-36); Mean Corpuscular Hemoglobin 31.2 PG (26-34); Mean Corpuscular Volume 98.3 fL (80-100); Monocytes Absolute Auto 600 /uL (0-900); Monocytes Percent Auto 4.2 % (3-14); Neutrophils Absolute Auto 13600 /uL (1500-7000); Neutrophils Percent Auto 93.3 % (50-75); Platelet Count 327 X10^3/uL (150-400); Red Cell Distribution Width 19.2 % (11.6-14.8); White Blood Cell Count 14.5 X10^3/uL (4.5-11.0)
[2022-12-15 04:19] LABS: Alanine Aminotransferase 23 IU/L (<35); Albumin 2.5 g/dL (3.5-5.0); Alkaline Phosphatase 105 U/L (38-126); Aspartate Aminotransferase 27 IU/L (14-36); BUN Creatinine Ratio 10.9 (6-22); Bilirubin Total 0.5 mg/dL (0.2-1.3); Blood Urea Nitrogen 49 mg/dL (7-17); Calcium 7.2 mg/dL (8.4-10.2); Carbon Dioxide 23 mmol/L (22-32); Chloride 88 mmol/L (98-107); Estimated Glomerular Filt Rate 9 mL/min (>60); Globulin 2.5 g/dL (1.7-4.1); Glucose 135 mg/dL (80-110); HEMOLYSIS < 15 (0-50); Potassium 2.9 mmol/L (3.4-5.1); Sodium 125 mmol/L (137-145)
[2022-12-15 04:30] LABS: INR 10.6 (0.9-1.3)
[2022-12-15 04:31] LABS: Prothrombin Time 124.8 SECONDS (10.1-12.7)
[2022-12-15] MEDS: METOPROLOL ER 25 MG TABLET PO ×2 (05:06→09:45)
--- NOTE | 2022-12-15 05:08 | DI.RAD.S_ITS ---
PROCEDURE: XR FOOT LT 2V INDICATIONS: possible osteo heel TECHNIQUE: 2 views of the foot were acquired. COMPARISON: None. FINDINGS: Bones: No fractures or dislocations. No suspicious bony lesions. No bony erosions. Soft tissues: No tibiotalar joint effusion. Achilles tendon appears normal. No subcutaneous gas. IMPRESSION: No radiographic evidence of osteomyelitis. Agree with preliminary report. Dictated by: Uli Brooks M.D. on 12/15/2022 at 8:04 Approved by: Uli Brooks M.D. on 12/15/2022 at 8:05
--- NOTE | 2022-12-15 05:08 | DI.RAD.S_ITS ---
PROCEDURE: XR FOOT RT 2V INDICATIONS: possible osteo great toe TECHNIQUE: To views of the foot were acquired. COMPARISON: None. FINDINGS: Bones: No fractures or dislocations. No suspicious bony lesions. No bony erosion. Plantar calcaneal enthesophyte. Soft tissues: No tibiotalar joint effusion. Achilles tendon appears normal. No subcutaneous gas. IMPRESSION: No radiographic evidence of osteomyelitis. If there remains a high clinical concern, consider MRI with contrast. Agree with preliminary report. Dictated by: Uli Brooks M.D. on 12/15/2022 at 8:05 Approved by: Uli Brooks M.D. on 12/15/2022 at 8:06
[2022-12-15 05:31] LABS: C-Reactive Protein Quant 7.4 mg/dL (<1.0)
[2022-12-15 05:42] LABS: Erythrocyte Sedimentation Rate 90 MM/HR (0-20)
--- NOTE | 2022-12-15 06:34 | PC.NURSE ---
Patient continues to be restless and yelling out words that do not make sense. Patient also complaining of pain in her foot. Physician notified.
--- NOTE | 2022-12-15 06:54 | PC.NURSE ---
Peritoneal dialysis continues to run at this time.
--- NOTE | 2022-12-15 07:48 | PC.NURSE ---
ADULT BASIC EDUCATION TEACHER Note: Pt's daughter stated that pt was asking for more cereal and milk. Nurse states that breakfast tray was going to be coming in. Obtained breakfast tray and delivered it to room, but patient stated that they never wanted breakfast.
--- NOTE | 2022-12-15 08:27 | PC.NURSE ---
Addendum entered by Jinny Peacock CNA 12/15/22 09:06: Update: . [facility] called back stating that there are staff restraints, so they cannot take patient now. Will call back after some discharges and more talks with data warehouse specialist. Original Note: FARRAH Note: Attempted to touch base with [facility] with pt on the waitlist. Spoke with Evaristo at [facility] and Tutu at [facility], both reviewing cases now and will call back with more information.
[2022-12-15 08:34] LABS: Add Manual Diff / Slide Review NO; Basophils Absolute Auto 0 /uL (0-100); Basophils Percent Auto 0.2 % (0-2); Eosinophils Absolute Auto 0 /uL (0-450); Eosinophils Percent Auto 0.2 % (2-4); Hematocrit 22.4 % (36-46); Hemoglobin 7.2 g/dL (12.0-16.0); Lymphocytes Absolute Auto 200 /uL (1100-4500); Lymphocytes Percent Auto 1.5 % (25-40); Mean Corpuscular HGB Conc 32.4 % (30-36); Mean Corpuscular Hemoglobin 31.4 PG (26-34); Monocytes Absolute Auto 900 /uL (0-900); Monocytes Percent Auto 6.2 % (3-14); Neutrophils Absolute Auto 13500 /uL (1500-7000); Neutrophils Percent Auto 91.9 % (50-75); Platelet Count 328 X10^3/uL (150-400); Red Blood Cell Count 2.31 X10^6/uL (4.0-5.2); Red Cell Distribution Width 18.5 % (11.6-14.8); White Blood Cell Count 14.7 X10^3/uL (4.5-11.0)
[2022-12-15 08:41] LABS: Prothrombin Time 93.6 SECONDS (10.1-12.7)
[2022-12-15 08:46] LABS: Alanine Aminotransferase 21 IU/L (<35); Albumin 2.3 g/dL (3.5-5.0); Alkaline Phosphatase 93 U/L (38-126); Aspartate Aminotransferase 30 IU/L (14-36); BUN Creatinine Ratio 11.6 (6-22); Bilirubin Total 0.4 mg/dL (0.2-1.3); Blood Urea Nitrogen 46 mg/dL (7-17); Calcium 7.2 mg/dL (8.4-10.2); Carbon Dioxide 23 mmol/L (22-32); Chloride 87 mmol/L (98-107); Estimated Glomerular Filt Rate 11 mL/min (>60); Globulin 2.4 g/dL (1.7-4.1); Glucose 108 mg/dL (80-110); HEMOLYSIS 16 (0-50); Potassium 3.1 mmol/L (3.4-5.1); Sodium 122 mmol/L (137-145); Total Protein 4.7 g/dL (6.3-8.2)
[2022-12-15] MEDS: DEXTROSE 10 % IN WATER 1,000 ML 100 ML IV (08:59)
[2022-12-15] MEDS: OXYCODONE/ACETAMINOPHEN 5/325 TABLET 1 TAB PO (09:00)
--- NOTE | 2022-12-15 09:48 | PC.NURSE ---
Pt confused this am, trying to get out of bed. Pt does have moments of lucidity. Family at bedside. pt is refusing food but taking liquids. Switched pt to Ensure for oral intake. Daughter at bedside is encouraging intake. Pt c/o foot pain, yelling help me. Order for pain medication received from Provider.
[2022-12-15 10:22] LABS: Adenovirus Not Detected (Not Detect); B. parapertussis Not Detected (Not Detecte); Bordetella pertussis Not Detected (Not Detecte); Chlamydophila pneumoniae Not Detected (Not Detect); Coronavirus 229E Not Detected (Not Detect); Coronavirus HKU1 Not Detected (Not Detect); Coronavirus NL 63 Not Detected (Not Detect); Coronavirus OC43 Not Detected (Not Detect); Human Metapneumovirus Not Detected (Not Detect); Human Rhinovirus/Enterovirus Not Detected (Not Detect); Influenza A Not Detected (Not Detect); Influenza B Not Detected (Not Detect); Mycoplasma pneumoniae Not Detected (Not Detect); Parainfluenza Virus 1 Not Detected (Not Detect); Parainfluenza Virus 2 Not Detected (Not Detect); Parainfluenza Virus 3 Not Detected (Not Detect); Parainfluenza Virus 4 Not Detected (Not Detect); Respiratory Syncytial Virus Not Detected (Not Detect); SARS- CoV-2 Not Detected (Not Detecte)
[2022-12-15] MEDS: QUETIAPINE 100 MG TABLET 25 MG PO (10:25)
--- NOTE | 2022-12-15 11:52 | PC.NURSE ---
Patient is calmer per daughter but still little restless. Patient propped up in position of comfort. Family/friends at bedside.
[2022-12-15] MEDS: allopurinoL 100 MG TABLET PO (12:05)
[2022-12-15] MEDS: QUETIAPINE 25 MG TABLET PO (12:06)
--- NOTE | 2022-12-15 12:55 | PC.NURSE ---
Patient having multiple PVC/PAC. Dr Rivera aware of rhythm repeat labs ordered
--- NOTE | 2022-12-15 12:55 | PC.NURSE ---
Patient having multiple PVC/PAC. Rhythm showed to Dr Rivera. Repeat labs
--- NOTE | 2022-12-15 12:59 | PC.NURSE ---
Patient continues to be rather restless, picking at things in the air. Encouraging family and friends to decrease stimulation to allow rest.
[2022-12-15 13:03] LABS: Add Manual Diff / Slide Review NO; Basophils Absolute Auto 0 /uL (0-100); Basophils Percent Auto 0.1 % (0-2); Eosinophils Absolute Auto 100 /uL (0-450); Eosinophils Percent Auto 0.7 % (2-4); Lymphocytes Absolute Auto 400 /uL (1100-4500); Lymphocytes Percent Auto 3.4 % (25-40); Mean Corpuscular HGB Conc 32.5 % (30-36); Mean Corpuscular Hemoglobin 31.7 PG (26-34); Mean Corpuscular Volume 97.5 fL (80-100); Monocytes Absolute Auto 800 /uL (0-900); Monocytes Percent Auto 6.9 % (3-14); Neutrophils Absolute Auto 10200 /uL (1500-7000); Neutrophils Percent Auto 88.9 % (50-75); Platelet Count 242 X10^3/uL (150-400); Red Blood Cell Count 2.16 X10^6/uL (4.0-5.2); Red Cell Distribution Width 18.5 % (11.6-14.8); White Blood Cell Count 11.4 X10^3/uL (4.5-11.0)
[2022-12-15 13:23] LABS: BUN Creatinine Ratio 11.2 (6-22); Blood Urea Nitrogen 46 mg/dL (7-17); Calcium 7.1 mg/dL (8.4-10.2); Carbon Dioxide 24 mmol/L (22-32); Chloride 86 mmol/L (98-107); Estimated Glomerular Filt Rate 10 mL/min (>60); Glucose 118 mg/dL (80-110); HEMOLYSIS < 15 (0-50); Potassium 3.2 mmol/L (3.4-5.1); Sodium 121 mmol/L (137-145)
--- NOTE | 2022-12-15 15:30 | PC.NURSE ---
Provided water with swab for patient family to swab patients mouth
--- NOTE | 2022-12-15 16:30 | PC.NURSE ---
Repeat EKG obtained for runs of VTACH and hypotension. Verbal for 500NS bolus. Amiodarone 15mg/[address] Rivera. Patient placed on cardiac pad and code status verified with daughter.
--- NOTE | 2022-12-15 16:41 | PC.NURSE ---
blood pressure improved up to 86/49 fluid bolus stopped after 125MLs administered. Fluids paused due to kidney function.
[2022-12-15] MEDS: AMIODARONE 150 MG/100 ML PIGGYBACK 600 MG IV (16:42)
[2022-12-15 16:48] LABS: Magnesium 0.9 mg/dL (1.6-2.3)
--- NOTE | 2022-12-15 17:41 | CM.IDA ---
Initial DCP Assessment Patient is 82 y/o female who presents to yesterday due to concern for N/V/D. Patient's initial plan upon ED evaluation was seeking transfer for peritoneal dialysis. While awaiting transfer, today patient presents with Vtach and Hypotension episodes. Daughter/DPOA at bedside, patient is DNR/DNI and chooses to pursue comfort measures for patient. Per ED provider Dr. Rivera, patient likely to is imminent within 24 hours, patient is accepted by hospitalist for comfort measures. Patient's PCP is Dr. Lanza, Patient has Medicare and [employer]. Patient's several family members gather upon change of plan of care to comfort care. HEALTH CARE LAW SPECIALIST asks if daughter/DPOA would like a sherin or a program arranger and they decline. Sherin checks in with HEALTH CARE LAW SPECIALIST later on and states he is available sales agent pest control service if needed. HEALTH CARE LAW SPECIALIST offers support and condolences, family declines any needs at this time. HEALTH CARE LAW SPECIALIST receives call earlier in the day from [facility] regarding patient, HEALTH CARE LAW SPECIALIST calls back and leaves in regards to patient's current plan of care. Plan: patient to in hospital, patient admitted for comfort measures. CITLALY De Leon Discharge Planning/Care Management CM Discharge Assessment Start: 12/15/22 17:33 Freq: Status: Active Protocol: Document 12/15/22 17:33 LN (Rec: 12/15/22 17:41 LN [id number]) Discharge Planning Assessment Assigned Turbine Technician CITLALY Painter DPOA/Assigned Designee Name Yvonne Teixeira Contact Information [phone] Advance Directives? Yes: POLST & Advance Directive Advance Directives on File Yes History Provided By Family Member,Medical Record Has Patient been admitted in last 30 No days? Prior Living Arrangements House Household Members children Type of transporation used prior to Relies on Others admit Independent with ADL's No Is patient alert and oriented? No Community Services used prior to Physical Therapy,Home Health admission: Aid,Home Health Nurse,Wound Care Discharge Plan Pt expected to in Hospital Referrals Initiated None needed Additional Comment Family may benefit from grief services from Hospice Please Provide Date Initial DC 12/15/22 Assessment Was Performed
[2022-12-15] MEDS: MORPHINE 2 MG/ML INJ IV (18:13)
--- NOTE | 2022-12-15 18:27 | P.HP_ITS ---
History of Present Illness History of Present Illness Date Patient Seen: 12/15/22 Time Patient Seen: 18:20 Chief complaint: dehydration, hallucinations, confusion Narrative: This is an 82-year-old female with a past medical history of hypertension, hyperlipidemia, breast spindle cell carcinoma, crest syndrome, end-stage renal disease tinea dialysis, atrial fibrillation on Coumadin, and a Christianity who presented to the emergency room yesterday with hallucinations. History is largely gathetered through the chart, and brief discussion with daughter after arrival to the floor, and ER provider. Patient was presumed to have an acute encephalopathy and was pending transfer to outside facility. Initial imaging showed no obvious infectious source and UA was negative (she makes small amount of urine). Her mental status only continued to decline with sodium dropping to 121, mg to 0.9. K 3.2. She had an episode of vtach with hypotension and was started on amiodarone with improvement. Troponin was 0.790, EKG with some T wave inversions, probably due to NSTEMI or demand. She was quite anemic with Hg near 7. Did not want blood transfusion given Yazdanism. Respiratory panel was negative for infection. While pending transfer, with worsening mentation, and multiple goals of care converstations decision was made to stop all treatments and proceed with comfort care. Given her electrolyte abnormalities and ESRD this is presumed imminent. Other abnormalities include initial INR of 10 that has improved to 8 since her arrival in the ER yesterday. Given patient's imminent appearance, and no longer wanting to persue dialysis, patient was admitted to the floor for comfort. [facility] Medical History Anxiety about health Back stiffness Balance problem Breast cancer in female Cervical somatic dysfunction Chronic nausea Chronic neck pain CKD (chronic kidney disease) (Unknown) Constipation Cranial somatic dysfunction CREST syndrome (Unknown) End stage renal failure on dialysis GERD (gastroesophageal reflux disease) (Unknown) Gout Hiatal hernia with gastroesophageal reflux disease and esophagitis Hyperkalemia Hyperlipemia (Unknown) Hypertension (Unknown) Hypotension Localized swelling of left forearm Nausea with vomiting Osteopenia (~04/2016) Osteoporosis (~04/2016) Pain of left great toe Raynaud's disease (Unknown) Reactive depression (situational) Segmental and somatic dysfunction of abdomen and other regions Segmental and somatic dysfunction of abdomen and other regions Segmental and somatic dysfunction of pelvic region Segmental and somatic dysfunction of rib cage Segmental and somatic dysfunction of sacral region Segmental and somatic dysfunction of thoracic region Somatic dysfunction of right lower extremity Upper extremity somatic dysfunction Warfarin anticoagulation Surgical History History of cataract removal with insertion of prosthetic lens History of rectal surgery Status post breast biopsy Status post hysterectomy Status post tonsillectomy and adenoidectomy Family History Father Congestive heart failure Hypertension Mother Myocardial infarction Social History household members: children Smoking Status: Never smoker alcohol intake: current Meds Home Medications and Allergies Home Medications Medication Instructions Recorded Confirmed Type acetaminophen 325 mg tablet 650 mg PO Q4H PRN PAIN OR FEVER 06/10/19 12/15/22 History Probiotic 1 cap PO BID 01/05/21 12/07/22 History sennosides 8.6 mg tablet (senna) 8.6 mg PO BID 01/05/21 12/15/22 History allopurinol 100 mg tablet 100 mg PO DAILY 06/14/21 12/15/22 History ondansetron 4 mg disintegrating 4 mg PO Q8H PRN nausea and 03/03/22 12/15/22 Rx tablet vomiting #30 tabs atorvastatin 10 mg tablet 10 mg PO BEDTIME #90 tabs 08/09/22 12/15/22 Rx B complex with C 10-folic acid 12/15/22 History metoprolol tartrate 25 mg tablet 12.5 mg PO BID 12/15/22 12/15/22 History pentoxifylline 400 mg 400 mg PO DAILY 12/15/22 12/15/22 History tablet,extended release sildenafil (pulm.hypertension) 20 20 mg PO BID 12/15/22 12/15/22 History mg tablet warfarin 1 mg tablet 1.5 mg PO DAILY 12/15/22 12/15/22 History Allergies Allergy/AdvReac Type Severity Reaction Status Date / Time carrot [CARROT] Allergy Severe EYES SWELL Verified 12/15/22 09:57 cephalexin [From Keflex] AdvReac Severe ITCHING Verified 12/15/22 09:57 clindamycin [CLINDAMYCIN] AdvReac Severe DIARRHEA Verified 12/15/22 09:57 doxycycline AdvReac Severe Made her Verified 12/15/22 09:57 very nauseous/affected appetite Review of Systems Review of Systems Narrative: unable to perform ROS given patient's current level of alertness. Exam Vital Signs (past 8 hours): - 12/15/22 10:30 12/15/22 10:30 12/15/22 11:00 Pulse Rate 104 H 102 H Respiratory Rate 27 H 25 H Blood Pressure 106/60 Pulse Oximetry 93 Oxygen Delivery Method Room Air Oxygen Flow Rate 12/15/22 11:30 12/15/22 12:00 12/15/22 12:30 Pulse Rate 108 H 103 H 104 H Respiratory Rate 21 24 20 Blood Pressure Pulse Oximetry Oxygen Delivery Method Oxygen Flow Rate 12/15/22 13:00 12/15/22 13:30 12/15/22 14:00 Pulse Rate 115 H 104 H 105 H Respiratory Rate 23 21 16 Blood Pressure Pulse Oximetry Oxygen Delivery Method Oxygen Flow Rate 12/15/22 14:15 12/15/22 14:30 12/15/22 14:45 Pulse Rate 103 H 108 H 110 H Respiratory Rate 19 14 16 Blood Pressure Pulse Oximetry Oxygen Delivery Method Oxygen Flow Rate 12/15/22 15:00 12/15/22 15:15 12/15/22 15:30 Pulse Rate 104 H 109 H 98 H Respiratory Rate 15 15 19 Blood Pressure Pulse Oximetry Oxygen Delivery Method Oxygen Flow Rate 12/15/22 15:45 12/15/22 16:00 12/15/22 16:15 Pulse Rate 99 H 96 H 103 H Respiratory Rate 16 13 16 Blood Pressure Pulse Oximetry Oxygen Delivery Method Oxygen Flow Rate 12/15/22 16:28 12/15/22 16:28 12/15/22 16:30 Pulse Rate 100 H Respiratory Rate 19 Blood Pressure 77/45 L 73/42 L Pulse Oximetry Oxygen Delivery Method Oxygen Flow Rate 12/15/22 16:30 12/15/22 16:31 12/15/22 16:31 Pulse Rate 96 H 95 H Respiratory Rate 12 13 Blood Pressure 74/40 L Pulse Oximetry Oxygen Delivery Method Oxygen Flow Rate 12/15/22 16:35 12/15/22 16:35 12/15/22 16:39 Pulse Rate 115 H 98 H Respiratory Rate 16 Blood Pressure 78/50 L Pulse Oximetry 88 L 84 L Oxygen Delivery Method Oxygen Flow Rate 12/15/22 16:39 12/15/22 16:40 12/15/22 16:42 Pulse Rate 94 H Respiratory Rate 8 L Blood Pressure 86/49 L 86/48 L Pulse Oximetry Oxygen Delivery Method Oxygen Flow Rate 12/15/22 16:42 12/15/22 16:44 12/15/22 16:45 Pulse Rate 97 H 96 H Respiratory Rate 19 11 L Blood Pressure 71/45 L Pulse Oximetry 84 L Oxygen Delivery Method Oxygen Flow Rate 12/15/22 16:45 12/15/22 16:46 12/15/22 16:48 Pulse Rate 86 85 89 Respiratory Rate 15 11 L 14 Blood Pressure Pulse Oximetry 82 L Oxygen Delivery Method Oxygen Flow Rate 12/15/22 16:49 12/15/22 16:49 12/15/22 16:50 Pulse Rate 81 84 Respiratory Rate 9 L 7 L Blood Pressure 80/43 L Pulse Oximetry 80 L Oxygen Delivery Method Oxygen Flow Rate 12/15/22 16:51 12/15/22 16:51 12/15/22 16:52 Pulse Rate 87 87 Respiratory Rate 13 7 L Blood Pressure 81/51 L Pulse Oximetry 94 88 L Oxygen Delivery Method Oxygen Flow Rate 12/15/22 16:54 12/15/22 16:54 12/15/22 16:56 Pulse Rate 78 85 Respiratory Rate 14 14 Blood Pressure 70/34 L Pulse Oximetry 78 L Oxygen Delivery Method Oxygen Flow Rate 12/15/22 16:57 12/15/22 16:57 12/15/22 16:58 Pulse Rate 81 82 Respiratory Rate 15 12 Blood Pressure 61/38 L Pulse Oximetry 79 L 83 L Oxygen Delivery Method Oxygen Flow Rate 12/15/22 17:00 12/15/22 17:00 12/15/22 17:02 Pulse Rate 77 90 Respiratory Rate 11 L 10 L Blood Pressure 62/40 L Pulse Oximetry Oxygen Delivery Method Oxygen Flow Rate 12/15/22 17:04 12/15/22 17:06 12/15/22 17:08 Pulse Rate 93 H 87 88 Respiratory Rate 8 L 10 L 10 L Blood Pressure Pulse Oximetry 87 L 92 Oxygen Delivery Method Nasal Cannula Oxygen Flow Rate 2 12/15/22 17:10 12/15/22 17:12 12/15/22 17:14 Pulse Rate 83 83 85 Respiratory Rate 13 11 L 12 Blood Pressure Pulse Oximetry 98 88 L Oxygen Delivery Method Oxygen Flow Rate 12/15/22 17:16 12/15/22 17:18 12/15/22 17:20 Pulse Rate 90 89 83 Respiratory Rate 17 13 16 Blood Pressure Pulse Oximetry 90 L 84 L 76 L Oxygen Delivery Method Oxygen Flow Rate 12/15/22 17:22 12/15/22 17:24 12/15/22 17:26 Pulse Rate 83 84 88 Respiratory Rate 15 15 15 Blood Pressure Pulse Oximetry 86 L 80 L 88 L Oxygen Delivery Method Nasal Cannula Oxygen Flow Rate 2 12/15/22 17:28 12/15/22 17:30 12/15/22 17:32 Pulse Rate 84 84 83 Respiratory Rate 17 17 17 Blood Pressure Pulse Oximetry 81 L 90 L 92 Oxygen Delivery Method Oxygen Flow Rate 12/15/22 17:34 12/15/22 17:36 12/15/22 17:38 Pulse Rate 87 86 84 Respiratory Rate 14 20 11 L Blood Pressure Pulse Oximetry 85 L 89 L Oxygen Delivery Method Oxygen Flow Rate 12/15/22 17:40 Pulse Rate 79 Respiratory Rate 13 Blood Pressure Pulse Oximetry 90 L Oxygen Delivery Method Oxygen Flow Rate Oxygen Delivery Method Nasal Cannula Oxygen Flow Rate 2 Narrative Exam Narrative: General: frail, thin elderly female, mildly uncomfortable appearing Neuro: shouts no to pain, opens eyes spontaneously but does not answer questions, moves all extremities equally. Objective ECG Impression: sinus tach, frequent PVC, TWI V2-3 new since prior tracings. Labs 12/15/22 12:55 12/15/22 12:55 Labs: Laboratory Results - last 24 hr 12/14/22 12/14/22 12/14/22 22:30 22:30 22:30 WBC 11.1 H RBC 2.23 L Hgb 7.1 L Hct 21.8 L MCV 97.8 MCH 32.1 MCHC 32.8 RDW 18.7 H Plt Count 293 Neut % (Auto) 87.6 H Lymph % (Auto) 4.5 L [place] % (Auto) 6.7 Eos % (Auto) 1.0 L Baso % (Auto) 0.2 Neut # (Auto) 9700 H Lymph # (Auto) 500 L [place] # (Auto) 700 Eos # (Auto) 100 Baso # (Auto) 0 ESR PT 118.2 H D INR 10.0 H* Sodium 125 L Potassium 3.2 L Chloride 91 L Carbon Dioxide 21 L BUN 56 H Creatinine 4.50 H Estimated GFR 9 L BUN/Creatinine Ratio 12.4 Glucose 120 H Lactate Calcium 7.2 L Magnesium Total Bilirubin 0.7 AST 25 ALT 21 Alkaline Phosphatase 92 Total Creatine Kinase 33 CK-MB (CK-2) TNP CK-MB (CK-2) Rel Index TNP Troponin I 0.043 H C-Reactive Protein Total Protein 4.7 L Albumin 2.3 L Globulin 2.4 Albumin/Globulin Ratio 1.0 Procalcitonin 1.11 H Chlamy pneumoniae PCR Adenovirus (PCR) B. pertussis DNA (PCR) B.parapertussis DNA PCR Coronavirus OC43 (PCR) Coronavirus HKU1 (PCR) Coronavirus 229E (PCR) SARS-CoV-2 (PCR) Coronavirus NL63 (PCR) Human Metapneumovir PCR Influenza Type A (PCR) Influenza Type B (PCR) M. pneumoniae (PCR) Parainfluenza 1 (PCR) Parainfluenza 2 (PCR) Parainfluenza 3 (PCR) Parainfluenza 4 (PCR) RSV (PCR) Entero/Rhino (PCR) 12/14/22 12/15/22 12/15/22 22:30 03:50 03:50 WBC RBC Hgb Hct MCV MCH MCHC RDW Plt Count Neut % (Auto) Lymph % (Auto) [place] % (Auto) Eos % (Auto) Baso % (Auto) Neut # (Auto) Lymph # (Auto) [place] # (Auto) Eos # (Auto) Baso # (Auto) ESR PT 124.8 H D INR 10.6 H* Sodium 125 L Potassium 2.9 L Chloride 88 L Carbon Dioxide 23 BUN 49 H Creatinine 4.51 H Estimated GFR 9 L BUN/Creatinine Ratio 10.9 Glucose 135 H Lactate 1.9 Calcium 7.2 L Magnesium Total Bilirubin 0.5 AST 27 ALT 23 Alkaline Phosphatase 105 Total Creatine Kinase CK-MB (CK-2) CK-MB (CK-2) Rel Index Troponin I C-Reactive Protein Total Protein 5.0 L Albumin 2.5 L Globulin 2.5 Albumin/Globulin Ratio 1.0 Procalcitonin Chlamy pneumoniae PCR Adenovirus (PCR) B. pertussis DNA (PCR) B.parapertussis DNA PCR Coronavirus OC43 (PCR) Coronavirus HKU1 (PCR) Coronavirus 229E (PCR) SARS-CoV-2 (PCR) Coronavirus NL63 (PCR) Human Metapneumovir PCR Influenza Type A (PCR) Influenza Type B (PCR) M. pneumoniae (PCR) Parainfluenza 1 (PCR) Parainfluenza 2 (PCR) Parainfluenza 3 (PCR) Parainfluenza 4 (PCR) RSV (PCR) Entero/Rhino (PCR) 12/15/22 12/15/22 12/15/22 03:50 03:50 03:50 WBC 14.5 H RBC 2.50 L Hgb 7.8 L Hct 24.6 L MCV 98.3 MCH 31.2 MCHC 31.7 RDW 19.2 H Plt Count 327 Neut % (Auto) 93.3 H Lymph % (Auto) 1.8 L [place] % (Auto) 4.2 Eos % (Auto) 0.2 L Baso % (Auto) 0.5 Neut # (Auto) 27071 H Lymph # (Auto) 300 L [place] # (Auto) 600 Eos # (Auto) 0 Baso # (Auto) 100 ESR 90 H PT INR Sodium Potassium Chloride Carbon Dioxide BUN Creatinine Estimated GFR BUN/Creatinine Ratio Glucose Lactate Calcium Magnesium Total Bilirubin AST ALT Alkaline Phosphatase Total Creatine Kinase CK-MB (CK-2) CK-MB (CK-2) Rel Index Troponin I C-Reactive Protein 7.4 H Total Protein Albumin Globulin Albumin/Globulin Ratio Procalcitonin Chlamy pneumoniae PCR Adenovirus (PCR) B. pertussis DNA (PCR) B.parapertussis DNA PCR Coronavirus OC43 (PCR) Coronavirus HKU1 (PCR) Coronavirus 229E (PCR) SARS-CoV-2 (PCR) Coronavirus NL63 (PCR) Human Metapneumovir PCR Influenza Type A (PCR) Influenza Type B (PCR) M. pneumoniae (PCR) Parainfluenza 1 (PCR) Parainfluenza 2 (PCR) Parainfluenza 3 (PCR) Parainfluenza 4 (PCR) RSV (PCR) Entero/Rhino (PCR) 12/15/22 12/15/22 12/15/22 08:15 08:25 08:25 WBC 14.7 H RBC 2.31 L Hgb 7.2 L Hct 22.4 L MCV 97.0 MCH 31.4 MCHC 32.4 RDW 18.5 H Plt Count 328 Neut % (Auto) 91.9 H Lymph % (Auto) 1.5 L [place] % (Auto) 6.2 Eos % (Auto) 0.2 L Baso % (Auto) 0.2 Neut # (Auto) 75733 H Lymph # (Auto) 200 L [place] # (Auto) 900 Eos # (Auto) 0 Baso # (Auto) 0 ESR PT 93.6 H D INR 8.0 H* Sodium Potassium Chloride Carbon Dioxide BUN Creatinine Estimated GFR BUN/Creatinine Ratio Glucose Lactate Calcium Magnesium Total Bilirubin AST ALT Alkaline Phosphatase Total Creatine Kinase CK-MB (CK-2) CK-MB (CK-2) Rel Index Troponin I C-Reactive Protein Total Protein Albumin Globulin Albumin/Globulin Ratio Procalcitonin Chlamy pneumoniae PCR Not detected Adenovirus (PCR) Not detected B. pertussis DNA (PCR) Not detected B.parapertussis DNA PCR Not detected Coronavirus OC43 (PCR) Not detected Coronavirus HKU1 (PCR) Not detected Coronavirus 229E (PCR) Not detected SARS-CoV-2 (PCR) Not detected Coronavirus NL63 (PCR) Not detected Human Metapneumovir PCR Not detected Influenza Type A (PCR) Not detected Influenza Type B (PCR) Not detected M. pneumoniae (PCR) Not detected Parainfluenza 1 (PCR) Not detected Parainfluenza 2 (PCR) Not detected Parainfluenza 3 (PCR) Not detected Parainfluenza 4 (PCR) Not detected RSV (PCR) Not detected Entero/Rhino (PCR) Not detected 12/15/22 12/15/22 12/15/22 08:25 08:25 12:55 WBC RBC Hgb Hct MCV MCH MCHC RDW Plt Count Neut % (Auto) Lymph % (Auto) [place] % (Auto) Eos % (Auto) Baso % (Auto) Neut # (Auto) Lymph # (Auto) [place] # (Auto) Eos # (Auto) Baso # (Auto) ESR PT INR Sodium 122 L 121 L Potassium 3.1 L 3.2 L Chloride 87 L 86 L Carbon Dioxide 23 24 BUN 46 H 46 H Creatinine 3.96 H 4.12 H Estimated GFR 11 L 10 L BUN/Creatinine Ratio 11.6 11.2 Glucose 108 118 H Lactate Calcium 7.2 L 7.1 L Magnesium Total Bilirubin 0.4 AST 30 ALT 21 Alkaline Phosphatase 93 Total Creatine Kinase CK-MB (CK-2) CK-MB (CK-2) Rel Index Troponin I 0.790 H* C-Reactive Protein Total Protein 4.7 L Albumin 2.3 L Globulin 2.4 Albumin/Globulin Ratio 1.0 Procalcitonin Chlamy pneumoniae PCR Adenovirus (PCR) B. pertussis DNA (PCR) B.parapertussis DNA PCR Coronavirus OC43 (PCR) Coronavirus HKU1 (PCR) Coronavirus 229E (PCR) SARS-CoV-2 (PCR) Coronavirus NL63 (PCR) Human Metapneumovir PCR Influenza Type A (PCR) Influenza Type B (PCR) M. pneumoniae (PCR) Parainfluenza 1 (PCR) Parainfluenza 2 (PCR) Parainfluenza 3 (PCR) Parainfluenza 4 (PCR) RSV (PCR) Entero/Rhino (PCR) 12/15/22 12/15/22 12:55 12:55 WBC 11.4 H RBC 2.16 L Hgb 6.8 L* Hct 21.0 L MCV 97.5 MCH 31.7 MCHC 32.5 RDW 18.5 H Plt Count 242 Neut % (Auto) 88.9 H Lymph % (Auto) 3.4 L [place] % (Auto) 6.9 Eos % (Auto) 0.7 L Baso % (Auto) 0.1 Neut # (Auto) 61158 H Lymph # (Auto) 400 L [place] # (Auto) 800 Eos # (Auto) 100 Baso # (Auto) 0 ESR PT INR Sodium Potassium Chloride Carbon Dioxide BUN Creatinine Estimated GFR BUN/Creatinine Ratio Glucose Lactate Calcium Magnesium 0.9 L* Total Bilirubin AST ALT Alkaline Phosphatase Total Creatine Kinase CK-MB (CK-2) CK-MB (CK-2) Rel Index Troponin I C-Reactive Protein Total Protein Albumin Globulin Albumin/Globulin Ratio Procalcitonin Chlamy pneumoniae PCR Adenovirus (PCR) B. pertussis DNA (PCR) B.parapertussis DNA PCR Coronavirus OC43 (PCR) Coronavirus HKU1 (PCR) Coronavirus 229E (PCR) SARS-CoV-2 (PCR) Coronavirus NL63 (PCR) Human Metapneumovir PCR Influenza Type A (PCR) Influenza Type B (PCR) M. pneumoniae (PCR) Parainfluenza 1 (PCR) Parainfluenza 2 (PCR) Parainfluenza 3 (PCR) Parainfluenza 4 (PCR) RSV (PCR) Entero/Rhino (PCR) Assessment & Plan Assessment & Plan narrative: This is an 82-year-old female with a past medical history of hypertension, h yperlipidemia, breast spindle cell carcinoma, crest syndrome, end-stage renal disease tinea dialysis, atrial fibrillation on Coumadin, and a Christianity who presented to the emergency room yesterday with hallucinations. While pending transfer, with worsening mentation, and multiple goals of care converstations decision was made to stop all treatments and proceed with comfort care. Given her electrolyte abnormalities and ESRD this is presumed imminent. - have ordered for prn SL morphine, ativan, secretion control with scopalamine patch. - her passing appears imminent within the next 24 hours. Active diagnoses: 1. Acute metabolic encephalopathy 2. NSTEMI with ventricular tachycardia and hypotension 3. Hyponatremia, hypomagnesemia,hypokalemia related to ESRD 4. paroxysmal atrial fibrillation, chronic AC with supratherapetic INR 5. CREST syndrome 6. Yazdanism 7. Breast Spindle cell carcinoma. Code: DNR/DNI, surrogate is patient's daughter I have utilized all available immediate resources to obtain, update, or review the patient's current medications. I have reviewed patient's extensive outpatient documentation, confirmed history with daughter, and discussed with ER provider. Also reviewed patient's ER documentation, labs, imaging, EKGs, and COVID-19 COVID-19 status: Negative Quality MIPS - Admit I confirm the patient?s Advance Care Plan is present, Code status is documented, Surrogate decision maker is in patient?s record [If Yes, STOP here]: Yes
[2022-12-15] MEDS: SCOPOLAMINE 1 PATCH TOP (18:39)
[2022-12-16] MEDS: MORPHINE 2 MG/ML INJ IV ×2 (00:07→21:56)
[2022-12-16] MEDS: LORazepam 2 MG/ML ORAL SOL 1 MG PO ×2 (00:17→21:56)
--- NOTE | 2022-12-16 10:37 | CM.DPNOTE ---
Discharge Planning Note: Patient in bed comfortable, non-responsive. Family at bedside. Spoke with carole Teixeira outside room and she is accepting of her mother's demise here in the hospital. Her niece stayed with her overnight here. Family is calm. Patient is a former employee of [employer] department and known to me. Plan: Expected to pass here. Sabrina Fuentes RN/DCP
--- NOTE | 2022-12-16 11:04 | PM.PN.1 ---
Subjective Subjective Interval history: Many family members present. They have no concerns. They indicate the patient is comfortable. Exam Vital Signs (past 8 hours): Oxygen Delivery Method Nasal Cannula Oxygen Flow Rate 2 Narrative Exam Narrative: General: frail, thin elderly female, no discomfort noted Neuro: reacts to pain, opens eyes spontaneously but does not answer questions, moves all extremities equally. Objective Labs 12/15/22 12:55 12/15/22 12:55 Labs: Laboratory Results - last 24 hr 12/15/22 12/15/22 12/15/22 12:55 12:55 12:55 WBC 11.4 H RBC 2.16 L Hgb 6.8 L* Hct 21.0 L MCV 97.5 MCH 31.7 MCHC 32.5 RDW 18.5 H Plt Count 242 Neut % (Auto) 88.9 H Lymph % (Auto) 3.4 L [place] % (Auto) 6.9 Eos % (Auto) 0.7 L Baso % (Auto) 0.1 Neut # (Auto) 28907 H Lymph # (Auto) 400 L [place] # (Auto) 800 Eos # (Auto) 100 Baso # (Auto) 0 Sodium 121 L Potassium 3.2 L Chloride 86 L Carbon Dioxide 24 BUN 46 H Creatinine 4.12 H Estimated GFR 10 L BUN/Creatinine Ratio 11.2 Glucose 118 H Calcium 7.1 L Magnesium 0.9 L* PFSH Medical History Anxiety about health Back stiffness Balance problem Breast cancer in female Cervical somatic dysfunction Chronic nausea Chronic neck pain CKD (chronic kidney disease) (Unknown) Constipation Cranial somatic dysfunction CREST syndrome (Unknown) End stage renal failure on dialysis GERD (gastroesophageal reflux disease) (Unknown) Gout Hiatal hernia with gastroesophageal reflux disease and esophagitis Hyperkalemia Hyperlipemia (Unknown) Hypertension (Unknown) Hypotension Localized swelling of left forearm Nausea with vomiting Osteopenia (~04/2016) Osteoporosis (~04/2016) Pain of left great toe Raynaud's disease (Unknown) Reactive depression (situational) Segmental and somatic dysfunction of abdomen and other regions Segmental and somatic dysfunction of abdomen and other regions Segmental and somatic dysfunction of pelvic region Segmental and somatic dysfunction of rib cage Segmental and somatic dysfunction of sacral region Segmental and somatic dysfunction of thoracic region Somatic dysfunction of right lower extremity Upper extremity somatic dysfunction Warfarin anticoagulation Surgical History History of cataract removal with insertion of prosthetic lens History of rectal surgery Status post breast biopsy Status post hysterectomy Status post tonsillectomy and adenoidectomy Family History Father Congestive heart failure Hypertension Mother Myocardial infarction Social History household members: children Smoking Status: Never smoker alcohol intake: current Assessment & Plan Assessment & Plan narrative: Patient is actively dying with the following ongoing diagnoses: 1. Acute metabolic encephalopathy 2. NSTEMI with ventricular tachycardia and hypotension 3. Hyponatremia, hypomagnesemia,hypokalemia related to ESRD 4. paroxysmal atrial fibrillation, chronic AC with supratherapetic INR 5. CREST syndrome 6. Quaker 7. Breast Spindle cell carcinoma. 8. Anemia, possibly secondary to blood loss due to supratherapeutic INR. No labs drawn today. And no further labs will be done due to repair only. Code: DNR/DNI, surrogate is patient's daughter DVT prophylaxis: Not needed due to comfort care only.
[2022-12-16 19:00] VITALS: RESP 20
[2022-12-17] MEDS: LORazepam 2 MG/ML ORAL SOL 1 MG PO ×2 (06:43→22:32)
[2022-12-17] MEDS: MORPHINE 2 MG/ML INJ IV ×2 (06:43→22:25)
--- NOTE | 2022-12-17 10:37 | CM.DPNOTE ---
Discharge Planning Note: Per nurse patient did open eyes and spoke a little this morning. Friend Adriana at bedside this morning with patient. Comfort care continues. Plan: Comfort care continues, has been expected to here. Sabrina Fuentes RN/DCP
--- NOTE | 2022-12-17 13:04 | P.PN_ITS ---
Subjective Subjective Interval history: Patient visiting with family and friends. Occasionally open eyes and moves arms. Will answer yes no questions. Not in pain. No new complaints. Exam Vital Signs (past 8 hours): - 12/17/22 07:00 Oxygen Delivery Method Room Air Oxygen Delivery Method Room Air Oxygen Flow Rate 2 Narrative Exam Narrative: General: frail, thin elderly female, no discomfort noted Neuro: reacts to pain, opens eyes spontaneously and does answer some questions, moves all extremities equally. Objective Labs 12/15/22 12:55 12/15/22 12:55 PFS Medical History Anxiety about health Back stiffness Balance problem Breast cancer in female Cervical somatic dysfunction Chronic nausea Chronic neck pain CKD (chronic kidney disease) (Unknown) Constipation Cranial somatic dysfunction CREST syndrome (Unknown) End stage renal failure on dialysis GERD (gastroesophageal reflux disease) (Unknown) Gout Hiatal hernia with gastroesophageal reflux disease and esophagitis Hyperkalemia Hyperlipemia (Unknown) Hypertension (Unknown) Hypotension Localized swelling of left forearm Nausea with vomiting Osteopenia (~04/2016) Osteoporosis (~04/2016) Pain of left great toe Raynaud's disease (Unknown) Reactive depression (situational) Segmental and somatic dysfunction of abdomen and other regions Segmental and somatic dysfunction of abdomen and other regions Segmental and somatic dysfunction of pelvic region Segmental and somatic dysfunction of rib cage Segmental and somatic dysfunction of sacral region Segmental and somatic dysfunction of thoracic region Somatic dysfunction of right lower extremity Upper extremity somatic dysfunction Warfarin anticoagulation Surgical History History of cataract removal with insertion of prosthetic lens History of rectal surgery Status post breast biopsy Status post hysterectomy Status post tonsillectomy and adenoidectomy Family History Father Congestive heart failure Hypertension Mother Myocardial infarction Social History household members: children Smoking Status: Never smoker alcohol intake: current Assessment & Plan Assessment & Plan narrative: Patient is actively dying with the following ongoing diagnoses: 1. Acute metabolic encephalopathy 2. NSTEMI with ventricular tachycardia and hypotension 3. Hyponatremia, hypomagnesemia,hypokalemia related to ESRD 4. paroxysmal atrial fibrillation, chronic AC with supratherapetic INR 5. CREST syndrome 6. Yarsani 7. Breast Spindle cell carcinoma. 8. Anemia, possibly secondary to blood loss due to supratherapeutic INR. No labs drawn today.? And no further labs will be done due to comfort care only. Code: DNR/DNI, surrogate is patient's daughter DVT prophylaxis:? Not needed due to comfort care only.
--- NOTE | 2022-12-17 13:50 | CM.DPNOTE ---
Discharge Planning Note: Patient has been expected to here but has rallied a little today, opening eyes and speaking a little. Family and gnosticism friends have surrounded patient all day, very supportive and caring. Daughter Lluvia is asking about Hospice and bringing patient to patient's home where she has a nice environment, electric bed etc and family would stay with her. Explained hospice services to Lluvia, patient's niece and nephew. Lluvia asked for me to make a referral. Called [facility] and spoke with Lupis to give the referral. Faxed referral as well. Earliest they could start would be /Sun. Explained to daughter that they would be calling for an informational visit and would explain services. Dr Blanchard also spoke with daughter and family regarding patient status and hospice. Plan: Depending on patient status tomorrow, follow up with working toward discharge home with hospice. Sabrina Fuentes, RN/DCP
--- NOTE | 2022-12-17 21:38 | PC.NURSE ---
Patient is awake and responds to yes/no questions; oriented only to self. Breath sounds CTA. HRR. Denies nausea. BT present and abdomen is soft; no BM since 12/13 but is on comfort care. Has not voided since admission but is taking nothing by mouth. Is assisted to reposition q2h or as family requests; they ask not to have her repositioned unless she is uncomfortable. Denies pain or anxiety but when bed linens touch her feet she grimaces as has abrasions on bilateral feet and pressure injury on bilateral heels left > right (present on admission per family); foot cradle placed on bed. Fall risk score is high but family at bedside so alarm is not in use at this time.
[2022-12-18 07:00] VITALS: RESP 20; O2SAT 82
[2022-12-18] MEDS: LORazepam 2 MG/ML ORAL SOL 1 MG PO ×3 (07:40→23:03)
--- NOTE | 2022-12-18 10:51 | CM.DPC ---
Addendum entered by CHIDI Shankar 12/18/22 14:53: ADD: Per Lupis at [facility], completed Info Visit with Dtr/DPOA and plan is pt to d/c tomorrow 12/19 via BLS to home with [facility] to open between [id number]. MARIBEL confirmed home address that pt will d/c to. MARIBEL called [facility] and scheduled transport for 1300 via BLS to home tomorrow 12/19. BLS form completed and POLST attached and needs MD signature. BF Addendum entered by CHIDI Shankar 12/18/22 14:08: ADD: Per [facility] Lupis, attempted Info Visit but Dtr didn't answer for their scheduled 1300 call. MARIBEL met bedside with pt who was awake and able to communicate some and pt's Dtr Marleyh and brother and explained role and Dtr was not aware Hospice had attempted to call as she has been on the phone a lot today. Provided [facility] Lupis name and number and requested they call soon and Dtr agreeable. MARIBEL discussed possible option of discharging home this evening with family and meds in place while awaiting [facility] to open tomorrow and Dtr will discuss with pt and family after Info Visit with [facility] to determine if they feel they can meet pt's needs for d/c home tonight while waiting for Hospice or d/c in the morning. BF Original Note: DCP Hospice Comfort Planning Per MD, pt has stabilized and anticipated to possibly here at the hospital today. Pt has very supportive family and spiritual community friends that have been bedside. MARIBEL called [facility] and confirmed she has info visit scheduled for 1300 today and will do a place navarrete for pt open spot for likely tomorrow 12/19. MARIBEL met bedside with pt's good friend Adriana and maryam and they confirm that pt's Dtr/DPOA Lluvia should be bedside soon and preference is to get pt home. MARIBEL briefly discussed the potential for pt to d/c home tonight with Hospice to open next day but will return and discuss further when Dtr/DPOA is bedside. CHIDI Shankar
--- NOTE | 2022-12-18 11:11 | PM.PN.1 ---
Subjective Subjective Interval history: Patient resting quietly. No new nursing or family concerns. Arrangement for hospice at home is being set up. Exam Vital Signs (past 8 hours): - 12/18/22 07:00 Respiratory Rate 20 Pulse Oximetry 82 L Oxygen Delivery Method Room Air Oxygen Flow Rate 2 Narrative Exam Narrative: General: Appears to be in no acute medical distress. Sleeping quietly. Objective Labs 12/15/22 12:55 12/15/22 12:55 PFSH Medical History Anxiety about health Back stiffness Balance problem Breast cancer in female Cervical somatic dysfunction Chronic nausea Chronic neck pain CKD (chronic kidney disease) (Unknown) Constipation Cranial somatic dysfunction CREST syndrome (Unknown) End stage renal failure on dialysis GERD (gastroesophageal reflux disease) (Unknown) Gout Hiatal hernia with gastroesophageal reflux disease and esophagitis Hyperkalemia Hyperlipemia (Unknown) Hypertension (Unknown) Hypotension Localized swelling of left forearm Nausea with vomiting Osteopenia (~04/2016) Osteoporosis (~04/2016) Pain of left great toe Raynaud's disease (Unknown) Reactive depression (situational) Segmental and somatic dysfunction of abdomen and other regions Segmental and somatic dysfunction of abdomen and other regions Segmental and somatic dysfunction of pelvic region Segmental and somatic dysfunction of rib cage Segmental and somatic dysfunction of sacral region Segmental and somatic dysfunction of thoracic region Somatic dysfunction of right lower extremity Upper extremity somatic dysfunction Warfarin anticoagulation Surgical History History of cataract removal with insertion of prosthetic lens History of rectal surgery Status post breast biopsy Status post hysterectomy Status post tonsillectomy and adenoidectomy Family History Father Congestive heart failure Hypertension Mother Myocardial infarction Social History household members: children Smoking Status: Never smoker alcohol intake: current Assessment & Plan Assessment & Plan narrative: Patient is actively dying with the following ongoing diagnoses: 1. Acute metabolic encephalopathy 2. NSTEMI with ventricular tachycardia and hypotension 3. Hyponatremia, hypomagnesemia,hypokalemia related to ESRD 4. paroxysmal atrial fibrillation, chronic AC with supratherapetic INR 5. CREST syndrome 6. Faith 7. Breast Spindle cell carcinoma. 8. Anemia, possibly secondary to blood loss due to supratherapeutic INR. Code: DNR/DNI, surrogate is patient's daughter DVT prophylaxis:? Not needed due to comfort care only.
--- NOTE | 2022-12-18 13:14 | ONC.MSW ---
T/C-change in status Activity: Called pt's dtr re: questions she had. Since her call, pt is now inpt here at , is in her dying process, will be brought home with hospice in place tomorrow is she has not yet passed. Expressed condolences and support to dtr, Savita. No further needs indicated at this time.
[2022-12-18] MEDS: MORPHINE 2 MG/ML INJ IV ×2 (14:08→22:57)
[2022-12-18 15:24] LABS: Hemoglobin 6.8 g/dL (12.0-16.0)
--- NOTE | 2022-12-18 19:44 | PC.NURSE ---
0800: patient awake, talking. repositioned, oral care provided. shampoo cap for her hair. tidied up the room a bit and patient had her eyes open and smiling. i would like some nutrition offered a sip of fluids, she was able to swallow, after a few min was having difficulty clearing her throat. vaseline applied to her lips to keep them moist. tray table placed in front of her in case she wanted to eat some breakfast. work order for clogged sink in the room. lorazepam given x 1 w/ good effect. bed alarm is on, call light w/in reach.
[2022-12-18 20:37] VITALS: PULSE 54; RESP 19; TEMP 36.2; O2SAT 90
[2022-12-18] MEDS: SODIUM CHLORIDE 0.9% FLUSH 10 ML IV (22:58)
--- NOTE | 2022-12-18 23:28 | PC.NURSE ---
Patient is intermittently alert and will respond to questions asked. Respirations shallow but non labored; RA sat 90%. HRR w/rate of 54. BP not checked as is on comfort care. BT hypoactive and has not had BM since 12/13 but taking in only sips/bites of fluid/food. Is anuric and has been for several days. Is being repositioned q2h or as family requests for patient comfort only; pillows used for repositioning and heels are being floated as has pressure ulcers on bilateral heels; foot cradle on bed Buttocks/coccyx are reddened with bruised appearance. Fall risk score is high but family at bedside so bed alarm is not in use. Medicated with Morphine and Ativan at 2300 for pain/restlessness. On comfort care and expected DC home w/hospice tomorrow.
[2022-12-19 07:00] VITALS: BP 138/112; PULSE 77; RESP 16; TEMP 35.7
--- NOTE | 2022-12-19 08:29 | PM.DS.1 ---
History of Present Illness History of Present Illness Date Patient Seen: 12/15/22 Time Patient Seen: 18:20 Chief complaint: dehydration, hallucinations, confusion Narrative: This is an 82-year-old female with a past medical history of hypertension, hyperlipidemia, breast spindle cell carcinoma, crest syndrome, end-stage renal disease tinea dialysis, atrial fibrillation on Coumadin, and a Sikh who presented to the emergency room yesterday with hallucinations. History is largely gathetered through the chart, and brief discussion with daughter after arrival to the floor, and ER provider. Patient was presumed to have an acute encephalopathy and was pending transfer to outside facility. Initial imaging showed no obvious infectious source and UA was negative (she makes small amount of urine). Her mental status only continued to decline with sodium dropping to 121, mg to 0.9. K 3.2. She had an episode of vtach with hypotension and was started on amiodarone with improvement. Troponin was 0.790, EKG with some T wave inversions, probably due to NSTEMI or demand. She was quite anemic with Hg near 7. Did not want blood transfusion given Voodoo. Respiratory panel was negative for infection. While pending transfer, with worsening mentation, and multiple goals of care converstations decision was made to stop all treatments and proceed with comfort care. Given her electrolyte abnormalities and ESRD this is presumed imminent. Other abnormalities include initial INR of 10 that has improved to 8 since her arrival in the ER yesterday. Given patient's imminent appearance, and no longer wanting to persue dialysis, patient was admitted to the floor for comfort. Discharge Providers Provider Date of admission: 12/15/22 17:28 Discharge Date: 12/19/22 Primary care physician: Nishant Lanza DO Consults: 12/14/22 19:34 Consult to Pharmacy Routine Comment: levaquin dosing, peritoneal dialysis 12/15/22 16:49 Consult to [facility] - Treatment Coordinator Stat Comment: 12/15/22 18:02 Consult to Discharge Planning Routine Comment: Consult to Hospice Referral Urgent Comment: Discharge provider: Yoel Delaney DO Summary Hospital Course Discharge Diagnosis: 1. Acute metabolic encephalopathy 2. NSTEMI with ventricular tachycardia and hypotension 3. Hyponatremia, hypomagnesemia,hypokalemia related to ESRD 4. paroxysmal atrial fibrillation, chronic AC with supratherapetic INR 5. CREST syndrome 6. Voodoo 7. Breast Spindle cell carcinoma. 8. Anemia, possibly secondary to blood loss due to supratherapeutic INR. Hospital Course: Admitted for worsening hallucinations and confusion and found to have NSTEMI, ESRD with Cr 4, and sodium 121. While in ED GOC conversation with family decided for comfort care measures and patient brought into the hospital on comfort measures only while hospice arranged. She discharged on hospice on 12/19. Time Spent with Patient Time spent: Greater than 30 minutes Exam Vital Signs (past 8 hours): Oxygen Delivery Method Room Air Oxygen Flow Rate 0 Narrative Exam Narrative: GEN: no acute distress, disoriented and confused HEENT: moist mucous membranes, PERRL NECK: trachea midline, no JVD CV: regular rate and rhythm, no murmurs PULM: clear bilaterally ABD: soft, nontender, nondistended, no organomegaly EXT: warm and well perfused with no edema NEURO: no focal deficits Objective Labs 12/15/22 12:55 12/15/22 12:55 Labs: Laboratory Results - last 24 hr 12/15/22 12:55 Hgb 6.8 L* PFSH Medical History Anxiety about health Back stiffness Balance problem Breast cancer in female Cervical somatic dysfunction Chronic nausea Chronic neck pain CKD (chronic kidney disease) (Unknown) Constipation Cranial somatic dysfunction CREST syndrome (Unknown) End stage renal failure on dialysis GERD (gastroesophageal reflux disease) (Unknown) Gout Hiatal hernia with gastroesophageal reflux disease and esophagitis Hyperkalemia Hyperlipemia (Unknown) Hypertension (Unknown) Hypotension Localized swelling of left forearm Nausea with vomiting Osteopenia (~04/2016) Osteoporosis (~04/2016) Pain of left great toe Raynaud's disease (Unknown) Reactive depression (situational) Segmental and somatic dysfunction of abdomen and other regions Segmental and somatic dysfunction of abdomen and other regions Segmental and somatic dysfunction of pelvic region Segmental and somatic dysfunction of rib cage Segmental and somatic dysfunction of sacral region Segmental and somatic dysfunction of thoracic region Somatic dysfunction of right lower extremity Upper extremity somatic dysfunction Warfarin anticoagulation Surgical History History of cataract removal with insertion of prosthetic lens History of rectal surgery Status post breast biopsy Status post hysterectomy Status post tonsillectomy and adenoidectomy Family History Father Congestive heart failure Hypertension Mother Myocardial infarction Social History household members: children Smoking Status: Never smoker alcohol intake: current Discharge Plan Discharge Plan Patient Disposition: Hospice - Home Discharge orders & Medications Prescriptions: Discontinued ondansetron 4 mg tablet,disintegrating 4 mg PO Q8H PRN (Reason: nausea and vomiting) Qty: 30 3RF atorvastatin 10 mg tablet 10 mg PO BEDTIME Qty: 90 3RF sennosides [senna] 8.6 mg tablet 8.6 mg PO BID Probiotic 1 cap PO BID B complex with C 10-folic acid 1 tab PO DAILY metoprolol tartrate 25 mg tablet 12.5 mg PO BID Patient Comments: pt taking 12.5 mg twice per day Rx Instructions: take 1 tablet by mouth twice a day pentoxifylline 400 mg tablet extended release 400 mg PO DAILY Rx Instructions: take 1 tablet by mouth daily warfarin 1 mg tablet 1.5 mg PO DAILY Rx Instructions: take 1.5mg by mouth once daily sildenafil (pulm.hypertension) 20 mg tablet 20 mg PO BID acetaminophen 325 mg Tablet 650 mg PO Q4H PRN (Reason: PAIN OR FEVER) allopurinol 100 mg Tablet 100 mg PO DAILY Follow up/Referrals: Nishant Lanza DO [Primary Care Provider] - Visit Report/Discharge Packet Stand Alone Forms: Patient Portal/API, Stroke Signs & Symptoms Discharge Data Primary Care Provider: Nishant Lanza
--- NOTE | 2022-12-19 08:37 | CM.DPC ---
DCP Discharge Hospice Per MD, pt remains stable on room air and somewhat arousable and to d/c home with Hospice today. MARIBEL called Lupis at [facility] and updated on d/c today and will fax d/c summary when available and Hospice will open between [id number]. [facility] transport scheduled for 1300 today and BLS form completed and POLST attached. MARIBEL spoke to pt's Dtr/DPOA Lluvia and updated on d/c and plans and she confirms she is agreeable and will be bedside shortly to be with pt prior to transport. MARIBEL updated RN, supervisor stave finishing. Plan: Patient to d/c home today via [facility] at 1300 with [facility] to open around 1400 and family present. CHIDI Shankar
[2022-12-19] MEDS: LORazepam 2 MG/ML ORAL SOL 1 MG PO ×2 (08:42→12:36)
== END 2022-12-19 12:54 | disposition hospice, home (50) | DRG 280 ==
LOC: ED 12-15 07:06 → AC 12-15 17:29
PROVIDERS: Emergency Medicine; Admitting Provider Internal Medicine; Emergency Provider Emergency Medicine; Family Provider Family Medicine; PCP Family Medicine; Referring Provider Emergency Medicine; Visit Provider Internal Medicine
DX: I21.4 Non-ST elevation (NSTEMI) myocardial infarction (principal); G93.41 Metabolic encephalopathy; N18.6 End stage renal disease; E87.1 Hypo-osmolality and hyponatremia; I47.20 Ventricular tachycardia, unspecified; I12.0 Hypertensive chronic kidney disease with stage 5 chronic kidney disease or end stage renal disease; M34.1 CR(E)ST syndrome; I48.0 Paroxysmal atrial fibrillation; R79.1 Abnormal coagulation profile; D64.9 Anemia, unspecified; Z79.01 Long term (current) use of anticoagulants; Z51.5 Encounter for palliative care; Z66 Do not resuscitate; Z99.2 Dependence on renal dialysis; Z20.822 Contact with and (suspected) exposure to COVID-19
CPT/HCPCS: 36415; 51701; 51798; 70450; 71045; 73620; 74177; 80048; 80053; 80305; 80320; 81001; 82140; 82550; 82962; 83605; 83690; 83735; 84145; 84484; 85025; 85610; 85651; 85730; 86140; 87040; 87633; 93005; 93010; 96365; 96366; 96375; 99213; 99285; J0282; J1630; J1642; J1956; J2270; Q9967